=== PATIENT | female | born 1980 | race Caucasian/White ===

== ENCOUNTER 2024-09-19 13:43 | Inpatient (IN) ==
[2024-09-19 16:11] LABS: Hematocrit (blood only) 34.2 % (37.0-47.0); Hemoglobin 11.4 g/dl (12.0-16.0); Mean Corpuscular Hemoglobin 29.5 pg (25.0-34.0); Mean Corpuscular Hgb Conc 33.3 g/dL (32.0-36.0); Mean Corpuscular Volume 88.6 fL (80.0-100.0); Mean Platelet Volume 10.2 fL (9.4-12.4); Platelet Count 251 K/uL (130-400); RDW Coefficient of Variation 13.1 % (11.5-14.5); RDW Standard Deviation 41.8 fL (36.4-46.3); Red Blood Count 3.86 M/uL (4.20-5.40); White Blood Count 17.31 K/ul (4.8-10.8)
--- NOTE | 2024-09-19 16:27 | Electrocardiogram Report ---
Test Reason : Blood Pressure : */* mmHG Vent. Rate : 82 BPM Atrial Rate : 82 BPM P-R Int : 106 ms QRS Dur : 86 ms QT Int : 348 ms P-R-T Axes : 75 75 72 degrees QTcB Int : 406 ms Sinus rhythm with short NE Otherwise normal ECG No previous ECGs available Confirmed by Lukasz Wise ([id number]) on 09/19/2024 4:26:59 PM Referred By: Confirmed By: Lukasz Wise
[2024-09-19 16:29] LABS: Anion Gap 9 (3-11); BUN Creatinine Ratio 15.8 (10-20); Blood Urea Nitrogen 15 mg/dl (6-23); Calcium 9.1 mg/dl (8.6-10.3); Carbon Dioxide 28 mmol/L (21-32); Chloride 89 mmol/L (98-107); Creatinine Clr Calc Pharmacy 62.5 ml/min; Glucose 107 mg/dl (70-99(Fasting)); Potassium 4.4 mmol/L (3.5-5.1); Sodium 126 mmol/L (136-145)
[2024-09-19 16:50] LABS: Basophils # (auto) 0.05 K/uL (0.00-0.20); Basophils % (auto) 0.3 %; Eosinophils # (auto) 0.02 K/uL (0.00-0.50); Eosinophils % (auto) 0.1 %; Immature Granulocytes # (auto) 0.16 K/uL (0.01-0.20); Immature Granulocytes % (auto) 0.9 %; Lymphocytes # (auto) 0.39 K/uL (1.20-3.40); Lymphocytes % (auto) 2.3 %; Monocytes # (auto) 1.03 K/uL (0.11-0.59); Neutrophils # (auto) 15.66 K/uL (1.40-6.50); Neutrophils % (auto) 90.4 %
[2024-09-19 16:58] LABS: Alanine Aminotransferase 14 U/L (7-52); Albumin Globulin Ratio 0.9 (0.9-2); Albumin Level 3.7 gm/dl (3.4-5.0); Alkaline Phosphatase 81 U/L (34-104); Aspartate Aminotransferase 13 U/L (13-39); Bilirubin,Total 0.5 mg/dl (0.2-1.0); Globulin 3.9 gm/dl (2.5-4.0); Lipase < 3 U/L (11-82); Total Protein 7.6 gm/dl (6.0-8.3)
[2024-09-19 17:14] LABS: Appearance Urine Turbid (Clear); Bacteria Urine Automated 4+ (None Seen); Bilirubin Urine Negative (Negative); Blood Urine 2+ (Negative); Color Urine Yellow; Glucose Urine UA Negative (Negative); Ketones Urine Negative (Negative); Leukocyte Esterase Urine 3+ (Negative); Nitrite Urine Negative (Negative); Protein Urine 2+ (Negative); RBC Urine Automated >20 /hpf (0-2); Specific Gravity Urine 1.011 (1.000-1.030); Urobilinogen Urine Negative (Negative); WBC Urine Automated >50 /hpf (0-5); pH Urine 6.5 (4.5-7.5)
[2024-09-19 17:15] LABS: Cast Urine Automated 0-2 /lpf (0-2)
[2024-09-19] MEDS: OPTIRAY 320 100ml IV ONE (17:22)
[2024-09-19] MEDS: SODIUM CHLORIDE 0.9% 1,000 ML IV ONE (17:33)
[2024-09-19] MEDS: cefTRIAXone SODIUM 2,000 MG/50 ML BAG IV STA (17:33)
--- NOTE | 2024-09-19 17:36 | CT Scan Report ---
INDICATION: Abdominal pain. COMPARISON: MRI pelvis 07/20/2024. TECHNIQUE: Axial CT images of the abdomen and pelvis were obtained following IV contrast administration. Coronal and sagittal reformations were reviewed. FINDINGS: Visualized lung bases appear unremarkable. The liver, gallbladder, spleen, pancreas and adrenal glands appear unremarkable. Negative for abdominal aortic aneurysm or dissection. No evidence of bowel obstruction/colitis/appendicitis. No free air. No drainable fluid collection. Heterogeneous inferior aspect of the uterus with nonspecific air along the lower uterine segment. Urinary bladder wall thickening. Moderate left hydronephrosis and left perirenal and periureteral soft tissue stranding. No right hydronephrosis. No acute osseous abnormality evident. IMPRESSION: Findings concerning for endometrial/uterine cancer with mass effect on the left ureter causing moderate left hydronephrosis. Electronically signed by Bonifacio Lawler 09-19-2024 5:35 PM
[2024-09-19] MEDS: ONDANSETRON INJ 2 MG/ML 2 ML VIAL IV STA (18:17)
[2024-09-19] MEDS: HYDROmorphone INJ 0.5 MG/0.5 ML SYR IV PRN ×2 (18:20→22:54)
--- NOTE | 2024-09-19 18:20 | Emergency Department Note ---
Impression & Plan Pyelonephritis, Pelvic mass, Hydronephrosis, Hyponatremia ED Provider Note NAME: JOEY JOHNSON AGE: 44 SEX: F : 1980 ARRIVES VIA: Walk-In INFORMANT: Patient, ED PROVIDER(S): Lukasz Mccarty DO CHIEF COMPLAINT: Abdominal pain HPI: The patient is a 44-year-old female who is recently diagnosed with cervical cancer who presented to the emergency department for an evaluation of abdominal pain. The patient is been complaining of abdominal pain recently. She is also been constipated. She was treated by her outpatient radiation oncologist but because of worsening pain he asked her to come to the emergency department. The radiation oncologist did call me to tell me the patient was coming in and was concerned about the patient given her history. The patient describes left-sided abdominal pain. She states it is worsened with ambulation. She has noticed no hematuria. She denies having any chest pain or difficulty breathing. She has noticed some back pain. Patient denies having any fever. ROS: See above HPI for pertinent positives & negatives. A total of 10 systems reviewed and were otherwise negative. PAST MEDICAL HISTORY: See Below PAST SURGICAL HISTORY: See Below FAMILY HISTORY: See Below SOCIAL HISTORY: See Below HOME MEDICATIONS: See Below ALLERGIES: See Below VITALS: See Below PHYSICAL EXAMINATION: GENERAL: The patient awake and alert. She is very anxious and appears to be uncomfortable. EYES: The conjunctivae are clear. The pupils are round and reactive. EARS, NOSE, MOUTH AND THROAT: The nose is without any evidence of any deformity. NECK: The neck is nontender and supple. RESPIRATORY: Normal respiratory effort is noted there is no evidence of wheezing rhonchi or rales CARDIOVASCULAR: Regular rate and rhythm noted there no murmurs rubs or gallops normal S1 normal S2. GASTROINTESTINAL: The abdomen is distended. There is left-sided tenderness to palpation which is moderate. BACK: Left CVA tenderness was noted to percussion. MUSCULOSKELETAL/EXTREMITIES: There is no evidence of gross deformity full range of motion is noted in the hips and shoulders. SKIN: There is no obvious evidence of any rash. There are no petechiae, pallor or cyanosis noted. NEUROLOGIC: Patient is awake alert and oriented x3 strength is symmetric patellar reflexes are 2+ bilaterally MEDICAL DECISION MAKING: The patient is a 44-year-old female who has a history of cervical cancer who presented to the emergency department for left-sided abdominal pain. The patient was treated with IV fluids and IV pain medication in the emergency department. I discussed the patient's laboratory and radiographic studies with her. She was found to have enlargement of the pelvic mass with resultant hydronephrosis. There is significant stranding about the kidney. There were signs of infection on urinalysis. White blood cell count was elevated. She was treated with IV antibiotics in the emergency department. Given her findings I discussed her condition with the on-call urologist. They do feel the patient might be a candidate for stenting but also might need nephrostomy tube. I discussed her case with the on-call [facility]. They have agreed to evaluate the patient in the emergency department for further management and disposition. Triage Nursing notes reviewed. Prior medical records reviewed Vital Signs: reviewed and remarkable for elevated blood pressure. Differential diagnosis: Etiologies such as appendicitis, diverticulitis, obstruction, inflammatory bowel disease, renal colic, PUD, biliary pathology, pancreatitis, mesenteric ischemia, aortic pathology, infections, genitourinary, UTI, perforated viscus, as well as others were entertained. ER treatment provided: See below Diagnostics interpreted by me: ECG: EKG was obtained in the emergency department. My interpretation is normal sinus rhythm at 82 bpm. There is no ectopy. There is no acute ST segment abnormalities noted. No previous tracing was available. Cardiac Monitoring: An order was placed for continuous cardiac monitoring. The monitor shows a rate of 91 bpm with sinus rhythm. Laboratory studies: As stated above and show below. Imaging studies: See below. Radiographic imaging was reviewed by myself Consultation(s): I discussed this case with Dr. Rendon who is on for urology. I discussed this case with Kera who is on for the [facility] group. 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 Father , 42yo Cerebral aneurysm S/p nephrectomy Brother No problems noted. Brother No problems noted. Sister Twin Pts twin sister Son No problems noted. Daughter No problems noted. 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 How many Children do You have: 2 Other Information That Helps Us Care for You: No Feels Safe at Home: Yes Safety Concerns: Feels Safe At This Time Diet: regular caffeine: No during the past year weight has: decreased > 10 lbs Assistive Devices: None Allergies Allergies Allergy/AdvReac Type Severity Reaction Status Date / Time No Known Allergies Allergy Verified 09/19/24 18:49 Home Meds Home Medications Medication Instructions Recorded Confirmed polyethylene glycol 3350 17 17 g PO DAILY PRN Constipation 08/16/24 09/19/24 gram/dose oral powder (Miralax) ondansetron HCl 8 mg tablet 8 mg PO Q8H PRN Nausea And Vomiting 09/11/24 09/19/24 sennosides 8.6 mg capsule (senna) 8.6 mg PO DAILY 09/11/24 09/19/24 dexamethasone 4 mg tablet 4 mg PO BID 09/19/24 09/19/24 lidocaine-prilocaine 2.5 %-2.5 % 1 applic topical UD Mediport 09/19/24 09/19/24 topical cream morphine 15 mg tablet,extended 15 mg PO BID 09/19/24 09/19/24 release oxycodone 10 mg tablet 10 mg PO Q4H PRN Severe Pain 09/19/24 09/19/24 (Scale Score 7-10) Results & Data (ED) Vital Signs Vital Signs - 24 hr 09/19/24 13:58 09/19/24 18:29 09/19/24 18:31 Temperature 36.5 C Temperature Source Temporal Artery Scan Pulse Rate 93 H 84 Pulse Rate [Apical] 83 Pulse Strength Normal Respiratory Rate 17 18 Respiratory Effort / Characteristics Non-Labored Spontaneous Non-Labored Spontaneous Respiratory Depth Normal Normal Respiratory Pattern Regular Blood Pressure 132/67 Blood Pressure [Left Arm] 139/82 Blood Pressure Mean 88 Blood Pressure Mean [Left Arm] 101 Blood Pressure Position Sitting Pulse Oximetry 90 96 Oxygen Delivery Method Room Air Room Air Sepsis Recent Fever Within 48 Hours No Sepsis New/Unexplained Change in Mental Status No Sepsis Action Taken by Nursing No Action Required Home Medications Current Medication List: was personally reviewed by me Laboratory Data Attestation: I reviewed the patient's lab results. 09/20/24 05:18 09/20/24 05:18 Lab Results 09/19/24 09/19/24 Range/Units 15:56 16:45 WBC 17.31 H (4.8-10.8) K/ul RBC 3.86 L (4.20-5.40) M/uL Hgb 11.4 L (12.0-16.0) g/dl Hct 34.2 L (37.0-47.0) % MCV 88.6 (80.0-100.0) fL MCH 29.5 (25.0-34.0) pg MCHC 33.3 (32.0-36.0) g/dL RDW Std Deviation 41.8 (36.4-46.3) fL RDW Coeff of Fer 13.1 (11.5-14.5) % Plt Count 251 (130-400) K/uL MPV 10.2 (9.4-12.4) fL Immature Gran % (Auto) 0.9 % Neut % (Auto) 90.4 % Lymph % (Auto) 2.3 % Catron % (Auto) 6.0 % Eos % (Auto) 0.1 % Baso % (Auto) 0.3 % Neut # (Auto) 15.66 H (1.40-6.50) K/uL Lymph # (Auto) 0.39 L (1.20-3.40) K/uL Catron # (Auto) 1.03 H (0.11-0.59) K/uL Eos # (Auto) 0.02 (0.00-0.50) K/uL Baso # (Auto) 0.05 (0.00-0.20) K/uL Immature Gran # (Auto) 0.16 (0.01-0.20) K/uL Sodium 126 L (136-145) mmol/L Potassium 4.4 (3.5-5.1) mmol/L Chloride 89 L (98-107) mmol/L Carbon Dioxide 28 (21-32) mmol/L Anion Gap 9 (3-11) BUN 15 (6-23) mg/dl Creatinine 0.95 (0.6-1.2) mg/dl Est Cr Clr Drug Dosing 62.5 ml/min eGFR 75.77 BUN/Creatinine Ratio 15.8 (10-20) Glucose 107 H (70-99(Fasting)) mg/dl Osmolality 269 L (280-300) mOsm/kg Calcium 9.1 (8.6-10.3) mg/dl Total Bilirubin 0.5 (0.2-1.0) mg/dl AST 13 (13-39) U/L ALT 14 (7-52) U/L Alkaline Phosphatase 81 (34-104) U/L Total Protein 7.6 (6.0-8.3) gm/dl Albumin 3.7 (3.4-5.0) gm/dl Globulin 3.9 (2.5-4.0) gm/dl Albumin/Globulin Ratio 0.9 (0.9-2) Lipase < 3 L (11-82) U/L Urine Color Yellow Urine Appearance Turbid A (Clear) Urine pH 6.5 (4.5-7.5) Ur Specific [place] 1.011 (1.000-1.030) Urine Protein 2+ H (Negative) Urine Glucose (UA) Negative (Negative) Urine Ketones Negative (Negative) Urine Blood 2+ H (Negative) Urine Nitrite Negative (Negative) Urine Bilirubin Negative (Negative) Urine Urobilinogen Negative (Negative) Ur Leukocyte Esterase 3+ H (Negative) Urine WBC (Auto) >50 H (0-5) /hpf Urine RBC (Auto) >20 H (0-2) /hpf U Hyaline Cast (Auto) 0-2 (0-2) /lpf U Epithel Cells (Auto) 3-5 H (0-2) /hpf Urine Bacteria (Auto) 4+ H (None Seen) Urine Osmolality 333 L (500-800) mOsm/kg Ur Random Sodium 48 mmol/L Administered Medications Dexamethasone (Dexamethasone 4 Mg Tab) 4 mg PO BID KENDRA Stop: 10/19/24 20:59 Last Admin: 09/19/24 22:51 Dose: 4 mg Documented By: GHULAM Hydromorphone HCl (Hydromorphone Inj 0.5 Mg/0.5 Ml Syr) 0.5 mg IV Q3H PRN PRN Reason: Pain Stop: 10/03/24 19:16 Last Admin: 09/20/24 04:03 Dose: 0.5 mg Documented By: Admin: 09/19/24 22:54 Dose: 0.5 mg Documented By: GHULAM Oxycodone HCl (Oxycodone Hcl Ir 5 Mg Tab (Immediate Release)) 10 mg PO Q4H PRN PRN Reason: Severe Pain (Scale Score 7-10) Stop: 10/03/24 20:17 Last Admin: 09/20/24 00:51 Dose: 10 mg Documented By: Admin: 09/19/24 20:40 Dose: 10 mg Documented By: GHULAM Discontinued Medications Heparin Sodium (Porcine) (Heparin Sod 5,000 Unit/0.5 Ml Vial) 5,000 units SQ Q8 KENDRA Stop: 10/19/24 21:59 Last Admin: 09/19/24 22:51 Dose: 5,000 units Documented By: GHULAM Hydromorphone HCl (Hydromorphone Inj 0.5 Mg/0.5 Ml Syr) 0.5 mg IV Q15M PRN PRN Reason: Pain Stop: 10/03/24 18:10 Last Admin: 09/19/24 19:03 Dose: 0.5 mg Documented By: Admin: 09/19/24 18:20 Dose: 0.5 mg Documented By: LISANDRA Sodium Chloride (Nss) 1,000 mls @ 999 mls/hr IV .Q1H1M ONE Stop: 09/19/24 18:16 Last Infusion: 09/19/24 18:46 Dose: Infused Documented By: Admin: 09/19/24 17:33 Dose: 999 mls/hr Documented By: KEKE Ceftriaxone Sodium (Rocephin) 2,000 mg in 50 mls @ 100 mls/hr IV NOW STA Stop: 09/19/24 17:45 Last Infusion: 09/19/24 18:46 Dose: Infused Documented By: Admin: 09/19/24 17:33 Dose: 100 mls/hr Documented By: KEKE Sodium Chloride (Nss) 500 mls @ 60 mls/hr IV .Q8H20M KENDRA Stop: 09/20/24 04:04 Last Infusion: 09/20/24 05:16 Dose: Infused Documented By: Admin: 09/19/24 20:40 Dose: 60 mls/hr Documented By: GHULAM Ioversol (Optiray 320 100ml) 93 ml IV ONCE ONE Stop: 09/19/24 17:23 Last Admin: 09/19/24 17:22 Dose: 93 ml Documented By: MONCHO Ondansetron HCl (Ondansetron Inj 2 Mg/Ml 2 Ml Vial) 4 mg IV NOW STA Stop: 09/19/24 18:12 Last Admin: 09/19/24 18:17 Dose: 4 mg Documented By: LISANDRA Imaging Data Attestation: I personally reviewed and interpreted this imaging study as follows: My Impression: CT of the abdomen and pelvis was obtained in the emergency department. My interpretation is hydronephrosis with stranding about the left kidney, final report below. Radiologist's Impression: Abdomen/Pelvis CT 09/19/24 17:04 INDICATION: Abdominal pain. COMPARISON: MRI pelvis 07/20/2024. TECHNIQUE: Axial CT images of the abdomen and pelvis were obtained following IV contrast administration. Coronal and sagittal reformations were reviewed. FINDINGS: Visualized lung bases appear unremarkable. The liver, gallbladder, spleen, pancreas and adrenal glands appear unremarkable. Negative for abdominal aortic aneurysm or dissection. No evidence of bowel obstruction/colitis/appendicitis. No free air. No drainable fluid collection. Heterogeneous inferior aspect of the uterus with nonspecific air along the lower uterine segment. Urinary bladder wall thickening. Moderate left hydronephrosis and left perirenal and periureteral soft tissue stranding. No right hydronephrosis. No acute osseous abnormality evident. IMPRESSION: Findings concerning for endometrial/uterine cancer with mass effect on the left ureter causing moderate left hydronephrosis. Electronically signed by Bonifacio Lawler 09-19-2024 5:35 PM Discharge Plan Visit Data Chief Complaint: Abdominal Pain Stated Complaint: ABD PAIN, CANCER PATIENT ED Provider: Lukasz Mccarty Discharge Problem: Pyelonephritis, Pelvic mass, Hydronephrosis, Hyponatremia Patient Disposition: Admitted As Inpatient Discharge Instructions Interventions: ED Discharge Assessment Last Done: 09/19/24 20:14
[2024-09-19] MEDS ORDERED: ACETAMINOPHEN 325 MG TAB PO PRN (18:58)
--- NOTE | 2024-09-19 19:16 | History & Physical Report ---
<Statement entered by Dean Russo DO - 09/19/24 19:55> I have seen and examined the patient and have discussed the case with the advance practice provider. I have reviewed the advanced practitioner's documentation, and I agree with, and take responsibility for that plan of care. Patient evaluated while still in the ED. Appears uncomfortable, but declining any additional pain medicine at this time. Reviewed patient's renal function, within normal range, will add Toradol for some pain control as needed, often effective and pyelonephritis. Continue antibiotics Agree with urology evaluation Further plan of care as outlined below I spent a total of 16 minutes coordinating, documenting, and providing care for this patient excluding time spent by another provider/QHP. Date of Service September 19, 2024 Assessment & Plan (1) Hydronephrosis: (2) Pyelonephritis: (3) Squamous cell carcinoma of cervix: (4) Hyponatremia: Plan Assessment and plan: Squamous cell carcinoma of the cervix Mass effect on left ureter Left hydronephrosis Follows with Dr. Keith and currently undergoing radiation/chemotherapy Pain usually managed at home with oral morphine and Oxy Urology consulted, consider cystoscopy with stent versus nephrostomy tube N.p.o. after midnight, light hydration overnight. Hyponatremia: NA 126, likely secondary to poor oral intake. IV hydration overnight, BMP in a.m., urine Osmo and serum Osmo pending A total of 60 minutes is spent on chart review/facilitating plan of care/discussion with consultants/Reviewing diagnostic data Full code DVT prophylaxis: Heparin subcu History of Present Illness Chief Complaint: Abdominal pain Primary Care Provider: NO PCP The patient is a 44-year-old female with a past medical history of cervical CAcurrently undergoing radiation who presents to the ED on 09/19/2024 with complaints of worsening abdominal pain. Patient chronically takes morphine and Oxy for pain control. Reported to her oncologist that her pain has been worsening. She was directed to come to the ER if it did not improve. Patient reports left-sided pain that radiates around her back. She denies any nausea/vomiting/diarrhea. She denies any chest pain/shortness of breath. Does endorse some constipation but reports she had a bowel movement yesterday. Denies any hematuria. Denies any burning with urination. On arrival to the ED, labs remarkable for WBC 17.3, neutrophils 15.6, NA 126, glucose 107 UA appears positive. The patient was given IV ceftriaxone/IV fluids/Zofran in the ED Abdomen/pelvis CT shows findings concerning for endometrial/uterine cancer with mass effect on the left ureter causing moderate left hydronephrosis After discussion with urology, it was determined to admit the patient for pain control and patient may require a stent versus nephrostomy tube. She will be admitted for further management Kidney function is within normal limits Allergies Allergy/AdvReac Type Severity Reaction Status Date / Time No Known Allergies Allergy Verified 09/19/24 18:49 Home Medications Medication Instructions Recorded Confirmed Type polyethylene glycol 3350 17 17 g PO DAILY PRN Constipation 08/16/24 09/19/24 History gram/dose oral powder (Miralax) ondansetron HCl 8 mg tablet 8 mg PO Q8H PRN Nausea And Vomiting 09/11/2409/19 History sennosides 8.6 mg capsule (senna) 8.6 mg PO DAILY 09/11/24 09/19/24 History dexamethasone 4 mg tablet 4 mg PO BID 09/19/24 09/19/24 History lidocaine-prilocaine 2.5 %-2.5 % 1 applic topical UD Mediport 09/19/24 09/19/24 History topical cream morphine 15 mg tablet,extended 15 mg PO BID 09/19/24 09/19/24 History release oxycodone 10 mg tablet 10 mg PO Q4H PRN Severe Pain 09/19/24 09/19/24 History (Scale Score 7-10) Past Med/Surg History Problem List (Updated 09/19/24 @ 19:14 by VIVEK Carmona) Hyponatremia Hydronephrosis (Acute) Pelvic mass (Acute) Pyelonephritis (Acute) Squamous cell carcinoma of cervix (Chronic 07/25/24) Surgical History Status post colposcopy History of knee surgery Removal of Spaulding's cyst - right Family History Mother No problems noted. Father , 42yo Cerebral aneurysm S/p nephrectomy Brother No problems noted. Brother No problems noted. Sister Twin Pts twin sister Son No problems noted. Daughter No problems noted. 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 How many Children do You have: 2 Feels Safe at Home: Yes Diet: regular caffeine: No during the past year weight has: decreased > 10 lbs Review of Systems Review of Systems: All systems reviewed & are unremarkable except as noted in HPI & below Physical Exam Constitutional: WD/WN, vitals as above + ill appearing; no acute distress Eyes: PERRL, conjunctivae normal, anicteric sclerae ENMT: external ear and nose normal, oropharynx normal Neck: trachea midline, no thyromegaly Respiratory: normal respiratory effort, lungs clear to auscultation Cardiovascular: RRR, no murmur, no edema Gastrointestinal (Abdomen): normal bowel sounds, soft, nontender, no hepatosplenomegaly (Left-sided abdominal tenderness. No guarding) Musculoskeletal: no cyanosis or clubbing, extremities motor strength 5/5 Skin: no rashes, warm and dry Neurologic: PERRL, EOMI, accommodation nl, no face palsy, no dysarthria Lymphatic: no cervical or axillary lymphadenopathy Results & Data Results & Data Vital Signs (Past 12 Hours) Vital Signs Temp Pulse Pulse Resp BP BP Pulse Ox 09/19/24 18:31 83 18 139/82 96 09/19/24 18:29 84 09/19/24 13:58 36.5 C 93 H 17 132/67 90 O2 Del Method 09/19/24 18:31 Room Air 09/19/24 18:29 09/19/24 13:58 Room Air Diagnostic Findings Laboratory Results WBC 17.31 K/ul (4.8-10.8) H 09/19/24 15:56 RBC 3.86 M/uL (4.20-5.40) L 09/19/24 15:56 Hgb 11.4 g/dl (12.0-16.0) L 09/19/24 15:56 Hct 34.2 % (37.0-47.0) L 09/19/24 15:56 MCV 88.6 fL (80.0-100.0) 09/19/24 15:56 MCH 29.5 pg (25.0-34.0) 09/19/24 15: MCHC 33.3 g/dL (32.0-36.0) 09/19/24 15:56 RDW Std Deviation 41.8 fL (36.4-46.3) 09/19/24 15:56 RDW Coeff of Fer 13.1 % (11.5-14.5) 09/19/24 15:56 Plt Count 251 K/uL (130-400) 09/19/24 15: MPV 10.2 fL (9.4-12.4) 09/19/24 15:56 Immature Gran % (Auto) 0.9 % 09/19/24 15:56 Neut % (Auto) 90.4 % 09/19/24 15:56 Lymph % (Auto) 2.3 % 09/19/24 15:56 Centre % (Auto) 6.0 % 09/19/24 15:56 Eos % (Auto) 0.1 % 09/19/24 15:56 Baso % (Auto) 0.3 % 09/19/24 15:56 Neut # (Auto) 15.66 K/uL (1.40-6.50) H 09/19/24 15:56 Lymph # (Auto) 0.39 K/uL (1.20-3.40) L 09/19/24 15:56 Centre # (Auto) 1.03 K/uL (0.11-0.59) H 09/19/24 15:56 Eos # (Auto) 0.02 K/uL (0.00-0.50) 09/19/24 15:56 Baso # (Auto) 0.05 K/uL (0.00-0.20) 09/19/24 15:56 Immature Gran # (Auto) 0.16 K/uL (0.01-0.20) 09/19/24 15:56 Sodium 126 mmol/L (136-145) L 09/19/24 15:56 Potassium 4.4 mmol/L (3.5-5.1) 09/19/24 15:56 Chloride 89 mmol/L (98-107) L 09/19/24 15:56 Carbon Dioxide 28 mmol/L (21-32) 09/19/24 15:56 Anion Gap 9 (3-11) 09/19/24 15:56 BUN 15 mg/dl (6-23) 09/19/24 15:56 Creatinine 0.95 mg/dl (0.6-1.2) 09/19/24 15:56 Est Cr Clr Drug Dosing 62.5 ml/min 09/19/24 15:56 eGFR 75.77 09/19/24 15:56 BUN/Creatinine Ratio 15.8 (10-20) 09/19/24 15:56 Glucose 107 mg/dl (70-99(Fasting)) H 09/19/24 15:56 Calcium 9.1 mg/dl (8.6-10.3) 09/19/24 15:56 Total Bilirubin 0.5 mg/dl (0.2-1.0) 09/19/24 15:56 AST 13 U/L (13-39) 09/19/24 15:56 ALT 14 U/L (7-52) 09/19/24 15:56 Alkaline Phosphatase 81 U/L (34-104) 09/19/24 15:56 Total Protein 7.6 gm/dl (6.0-8.3) 09/19/24 15:56 Albumin 3.7 gm/dl (3.4-5.0) 09/19/24 15:56 Globulin 3.9 gm/dl (2.5-4.0) 09/19/24 15:56 Albumin/Globulin Ratio 0.9 (0.9-2) 09/19/24 15:56 Lipase < 3 U/L (11-82) L 09/19/24 15:56 Urine Color Yellow 09/19/24 16:45 Urine Appearance Turbid (Clear) A 09/19/24 16:45 Urine pH 6.5 (4.5-7.5) 09/19/24 16:45 Ur Specific Carroll 1.011 (1.000-1.030) 09/19/24 16:45 Urine Protein 2+ (Negative) H 09/19/24 16:45 Urine Glucose (UA) Negative (Negative) 09/19/24 16:45 Urine Ketones Negative (Negative) 09/19/24 16:45 Urine Blood 2+ (Negative) H 09/19/24 16:45 Urine Nitrite Negative (Negative) 09/19/24 16:45 Urine Bilirubin Negative (Negative) 09/19/24 16:45 Urine Urobilinogen Negative (Negative) 09/19/24 16:45 Ur Leukocyte Esterase 3+ (Negative) H 09/19/24 16:45 Urine WBC (Auto) >50 /hpf (0-5) H 09/19/24 16:45 Urine RBC (Auto) >20 /hpf (0-2) H 09/19/24 16:45 U Hyaline Cast (Auto) 0-2 /lpf (0-2) 09/19/24 16:45 U Epithel Cells (Auto) 3-5 /hpf (0-2) H 09/19/24 16:45 Urine Bacteria (Auto) 4+ (None Seen) H 09/19/24 16:45 Impressions Abdomen/Pelvis CT 09/19/24 17:04 INDICATION: Abdominal pain. COMPARISON: MRI pelvis 07/20/2024. TECHNIQUE: Axial CT images of the abdomen and pelvis were obtained following IV contrast administration. Coronal and sagittal reformations were reviewed. FINDINGS: Visualized lung bases appear unremarkable. The liver, gallbladder, spleen, pancreas and adrenal glands appear unremarkable. Negative for abdominal aortic aneurysm or dissection. No evidence of bowel obstruction/colitis/appendicitis. No free air. No drainable fluid collection. Heterogeneous inferior aspect of the uterus with nonspecific air along the lower uterine segment. Urinary bladder wall thickening. Moderate left hydronephrosis and left perirenal and periureteral soft tissue stranding. No right hydronephrosis. No acute osseous abnormality evident. IMPRESSION: Findings concerning for endometrial/uterine cancer with mass effect on the left ureter causing moderate left hydronephrosis. Electronically signed by Bonifacio Lawler 09-19-2024 5:35 PM Code Status & VTE Plan VTE Prophylaxis Plan VTE Prophylaxis will be ordered: Yes
[2024-09-19] MEDS ORDERED: POLYETHYLENE (MIRALAX) 17 GM PACK PO PRN (20:18)
[2024-09-19] MEDS ORDERED: KETOROLAC TROMETHAMINE 15 MG/ML VIAL IV PRN (20:18)
[2024-09-19] MEDS: oxyCODONE HCL IR 5 MG TAB (IMMEDIATE RELEASE) PO PRN (20:40)
[2024-09-19] MEDS: SODIUM CHLORIDE 0.9% 500 ML IV SCH (20:40)
[2024-09-19] MEDS ORDERED: MoRPHine SULFATE CR 15 MG TABCR PO SCH (21:00)
[2024-09-19] MEDS: HEPARIN SOD 5,000 UNIT/0.5 ML VIAL SQ SCH (22:51)
[2024-09-19] MEDS: dexAMETHasone 4 MG TAB PO SCH (22:51)
--- OUTSIDE RECORDS SUMMARY | 2024-09-19 23:22 | External Medical Summary | Summary of Care ---
Author Name Unknown Organization [facility] Address [address] [place] [address] Phone [phone] Care Team Providers Care Pst Manager Name Role Phone Unavailable Primary Care Provider Unavailabl e Reason for Visit * Reason Comments Outpatient Testing Encounter Details Date Type Department Care Team (Late st Contact Info) Description 09/19/2024 9:30 AM EST Laboratory Laboratory [address] [place] [phone] [place] [id number] Squamous cell carcinoma of cervix (HCC) Allergies No known active allergiesdocumented as of this encounter (statuses as of 09/19/2024) Medications Polyethylene Glycol 3350 17 GM/SCOOP Oral Powder (MiraLax) Take 17 g by mouth daily as needed for Constipation. One heaping tablespoon in 8 ounces of water or juice; for severe constipation. 510 g 3 5 Active Prochlorperazine Maleate 10 MG Oral Tablet (Compazine)Indica tions:Squamous cell carcinoma of cervix (HCC) Take 1 Tablet by mouth every 6 hours as needed for Nausea. 30 Tablet 5 Active Ondansetron HCl 8 MG Oral Tablet (Zofran)Indicatio ns:Squamous cell carcinoma of cervix (HCC) Take 1 Tablet by mouth every 8 hours as needed for Nausea. 39 Tablet 5 Active Lidocaine-Priloca ine 2.5-2.5 % External Cream (Emla)Indications :Squamous cell carcinoma of cervix (HCC) APPLY TO SKIN OVER MEDIPORT & COVER 1HR PRIOR TO ACCESSING. 30 g 5 Active Senna 8.6 MG Oral TabletIndications :Therapeutic opioid induced constipation Take 1 Tablet by mouth at bedtime. 30 Tablet 5 Active Morphine Sulfate ER 15 MG Oral Tablet Extended Release (Ms Contin)Indication s:Cancer related pain Take 1 Tablet by mouth in the morning and 1 Tablet before bedtime. 28 Tablet 5 Active oxyCODONE HCl 10 MG Oral Tablet (Roxicodone)Indic ations:Cancer related pain Take 1 Tablet by mouth every 4 hours as needed for Pain, Severe. 40 Tablet 5 Active Cranberry-Vitamin C 250-60 MG Oral Capsule (AZO Cranberry Urinary Tract) Take 2 Capsules by mouth 2 times a day as needed (urinary pain). 30 Capsule 5 Active dexAMETHasone 4 MG Oral Tablet (Decadron)Indicat ions:Cancer related pain Take 1 Tablet by mouth 2 times a day with morning and evening meals. 20 Tablet 5 Active documented as of this encounter (statuses as of 09/19/2024) Active Problems Problem Noted Date Diagnosed Date Dehydration 09/13/2024 Encounter for antineoplastic chemotherapy 2024 Squamous cell carcinoma of cervix 07/31/2024 Tobacco use documented as of this encounter (statuses as of 09/19/2024) Resolved Problems Problem Noted Date Diagnosed Date Resolved Date Encounter for supervision of other normal 01/31/2002 04/26/2002 Overview (11/26/2015): ICD-10 update of inactive term documented as of this encounter (statuses as of 09/19/2024) Social History Tobacco Use Types Packs/Day Years Used Date Smoking Tobacco: Every Day Cigarettes 0.5 7 Smokeless Tobacco: Never Comments:Reporting 10 daily Alcohol Use Standard Drinks/Week Comments Yes 0 (1 standard drink = 0.6 oz pur e alcohol) social PHQ-2 Answer Date Recorded PHQ-2 Score 0 04/30/2020 Hunger Vital Sign Answer Date Recorded Within the past 12 months, y ou worried that your food would run out before you got the money to buy more. Never true 06/07/20 24 Within the past 12 months, t he food you bought just didn't last and you didn't have money to get more. Never true 06/07/2024 Childcare Answer Date Recorded Do you feel overwhelmed with taking care of a child, family member or friend? No 06/07/2024 Does your family need help f inding childcare? (Household - for ages 0-17 years) Not on file 06/07/2024 Clothing Answer Date Recorded Have you been unable to get clothing when it was really needed? No 06/07/2024 Is your family able to get c lothes or diapers when needed? (Household - for ages 0-17 years) Not on file 06/07/2024 Personal Safety Answer Date Recorded Do you feel unsafe or have concerns for your saf ety? No 06/07/2024 Do you have concerns for you r family's safety? (Household - for ages 0-17 years) Not on file 06/07/2024 Utilities Answer Date Recorded Do you have trouble paying y our heating, water, or electric bill? No 06/07/2024 Is your family able to pay t he heat, water, or electric bill? (Household - for ages 0-17 years) Not on file 06/07/2024 Does your family have access to good internet? (Household - for ages 0-17 years) Not on file 06/07/2024 Employment Status Answer Date Recorded Are you unemployed or without regular income? No 06/07/2024 Does the household have a rustlar source of income? (Household - for ages 0-17 years) Not on file 06/07/2024 Social Connections Answer Date Recorded How often do you feel lonely or isolated from th ose around you? Rarely 06/07/2024 Financial Resource Strain Answer Date R ecorded Do you have any trouble payi ng for your medications, or do you think you might in the future? No 06/07/2024 Does your family have troubl e paying for medicine? (Household - for ages 0-17 years) Not on file 06/07/2024 Transportation Needs Answer Date Record ed Do you have trouble getting a ride to medical visits or work? (Adult - for ages 18 years and over) Not on file 06/07/2024 Does your family have a hard time getting a ride to doctors visits? (Household - for ages 0-17 years) Not on file 06/07/2024 Has lack of transportation k ept you from medical appointments, meetings, work, or from getting things needed for daily living? Check all that apply. No 06/07/2024 Do you (or your family) have trouble finding or paying for a ride (transportation)? (Household - for ages 0-17 years) Not on file 06/07/2024 Housing Stability Answer Date Recorded Do you currently live in a s helter or have no steady place to sleep at night? No 06/07/2024 Do you think you are at risk of becoming homeless? (Adult - for ages 18 years and over) Not on file 06/07/2024 Does your family worry about paying for your home or becoming homeless? (Household - for ages 0-17 years) Not on file 1 08/07/2023 Are you homeless or worried that you might be in the future? No 06/07/2024 Are you (or your family) yamilka eless or worried that you might be in the future? (Household - for ages 0-17 years) Not on file Food Insecurity Answer Date Recorded Do you need food for this week? No 06/07/2024 Are you able to get enough f ood for your family? (Household - for ages 0-17 years) Not on file 06/07/2024 Does your family need food t his week? (Household - for ages 0-17 years) Not on file 06/07/2024 Do you always have enough fo od for your family? (Household - for ages 0-17 years) Not on file 06/07/2024 Food Insecurity Answer Date Recorded Within the past 12 months, y ou worried that your food would run out before you got the money to buy more. Never true 06/07/20 24 Within the past 12 months, t he food you bought just didn't last and you didn't have money to get more. Never true 06/07/2024 Do you need food for this week? No 06/07/2024 Comments No Sex and Gender Information Value Date Recorded Sex Assigned at Female 06/07/2024 10:45 AM EST Legal Sex Female 5:28 AM EST Gender Identity Female 06/07/2024 10:45 AM EST Sexual Orientation Straight 06/07/2024 10 :45 AM EST documented as of this encounter Plan of Treatment Upcoming Encounters Date Type Department Care Team (Late st Contact Info) Description 09/20/2024 9:00 AM EST Office Visit Hematology/Oncology [facility] [address] [facility] [place] [phone] Angela Carranza CRNP [address] [place], [place] [phone] 09/20/2024 9:30 AM EST Hem/Onc Treatment [address] [phone] Nori, Chair 2 Hem Onc [address] [place] [phone] 09/20/2024 9:30 AM EST Office Visit Palliative Medicine [facility] [address] [phone] Kaye Augustine MD [address] [facility] [place] [address] 09/26/2024 9:30 AM EST Laboratory Laboratory [address] [place] [phone] [address] [place] [address] 09/27/2024 9:30 AM EST Office Visit Hematology/Oncology [facility] [address] [place] [phone] Chitra Bass MD [address] [facility] [place] [phone] 09/27/2024 10:00 AM EST Hem/Onc Treatment Hematology/Oncology Treatment, [place] [address] [place] [phone] 10/03/2024 9:30 AM EDT Laboratory Laboratory [address] [place] [phone] [place], [address] [place] [address] 10/04/2024 9:30 AM EDT Hem/Onc Treatment Hematology/Oncology Treatment, [address], [place] [phone] Pending Results Name Type Priority Associated Diagnoses Date /Time CBC WITH WBC DIFFERENTIAL Lab STAT Squamous cell carcinoma of cervix (HCC) 09/19/2024 9:44 AM EST COMPREHENSIVE METABOLIC PANEL Lab STAT Squamous cell carcinoma of cervix (HCC) 09/19/2024 9:44 AM EST MAGNESIUM Lab STAT Squamous cell carcinoma of cervix (HCC) 09/19/2024 9:44 AM EST CBC Lab STAT Squamous cell carcinoma of cervix (HCC) 09/19/2024 9:44 AM EST DIFFERENTIAL, AUTOMATED Lab STAT Squamous cell carcinoma of cervix (HCC) 09/19/2024 9:44 AM EST Health Maintenance Due Date Last Done Comments Lipid Panel 1980 Hepatitis C Screening 1998 DTap/Tdap Vaccines (1 - Tdap) 1999 Hepatitis B Vaccine (1 of 3 - 19+ 3-dose series) 1999 Pneumococcal Vaccine: Pediatrics (0 to 5 Years) and At-Risk Patients (6 to 18 Years and 19+ Years) (1 of 2 - PCV) 1999 Depression Screening 04/30/2021 04/30/2020 COVID-19 Vaccine (1 - 2023-2 5 season) 2024 Influenza Vaccine (FLU shot) (#1) 2024 Mammogram 06/23/2025 06/23/2024 Cervical Cancer Screening Discontinued HPV/Co-Test Discontinued 06/08/2024 Pap Smear Discontinued 06/08/2024, 10/11/2001 HPV (Gardasil) Vaccine Aged Out No lo nger eligible based on patient's age to complete this topic MENINGOCOCCAL (MENACTRA/MENVEO) Aged Out No longer eligible based on patient's age to complete this topic Meningitis B Vaccine (Bexsero/Trumemba) Aged Out No longer eligible based on patient's age to complete this topic documented as of this encounter Medical Devices Implanted Type Area Tumblers Supervisor Device Identifier Shelf Expiration Date Model / Serial / Lot Power Port 8fr Sngl Lumen Plas - [id number] Implanted:Qty : 1 on 09/08/2024 by Armond Drew MD at OR [facility] Right: Chest CR BARD : PERIPHERAL VASCULAR [id number] 10/23/2025 [id number] / / [id number] documented as of this encounter Visit Diagnoses Diagnosis Squamous cell carcinoma of cervix (HCC) Malignant neoplasm of cervix uteri, unspecified site documented in this encounter
--- OUTSIDE RECORDS SUMMARY | 2024-09-19 23:22 | External Medical Summary | Summary of Care ---
Author Name Unknown Organization [facility] Address [address] [place] [address] Phone [phone] Care Team Providers Care Technology Advisor Name Role Phone Unavailable Primary Care Provider Unavailabl e Reason for Visit * Reason Comments IV Therapy Hydration Encounter Details Date Type Department Care Team (Latest Contact Info) Description 09/18/2024 3:00 PM EST Hem/Onc Treatment Hematology/Oncolog y Treatment, [place] [address] [place] [address] Nori, Chair 5 Hem Onc Scene [address] [place] [address] Encounter for antineoplastic chemotherapy*; Squamous cell carcinoma of cervix (HCC); Dehydration Allergies No known active allergiesdocumented as of [...] No 06/07/2024 Does the household have a re gular source of income? (Household - for ages [...] AM EST documented as of this encounter Last Filed Vital Signs Vital Sign Reading Time Taken Comments Blood Pressure 145/83 09/18/2024 3:14 PM EST Pulse - - Temperature 36.9 C (98.4 F) 09/18/2024 3:14 PM ES T Respiratory Rate 18 09/18/2024 3:14 PM EST Oxygen Saturation 93% 09/18/2024 3:14 PM EST Inhaled Oxygen Concentration - - Weight - - Height - - Body Mass Index - - documented in this encounter Nursing Notes * Christiana Lee RN - 09/18/2024 4:53 PM EST Hydration complete. Patient tolerated well. No complaints. Port needle flushed with 10 ml NSS, blood return noted, and port locked with additional 10 ml NSS. Burnett needle removed, intact, gauze dressing applied. Goals: Patient will remain free from injury. Possible barriers to meeting goals: ambulating with IV pole Stability of the patient: Moderately stable - low risk of patient condition declining or worsening Summary regarding today's goals: Met: Patient remained free from harm/injury during treatment. Patient left facility in stable condition. * Genesis Gauthier RN - 09/18/2024 3:34 PM EST Chair 12 Patient here for hydration. Port accessed with brisk blood return. Patient instructed on use of heat in chair. Patient shown how to operate the heat function of the chair and to alert nursing staff if the chair feels too warm. Patient instructed on the risk of potential peterson while using the heat function. Safety and Risk for Injury Patient will remain free from injury. Ensure appropriate safety devices are available. Provide and maintain safe environment. documented in this encounter Plan of Treatment Upcoming Encounters Date Type Department Care Team (Late st Contact Info) Description 09/19/2024 9:30 AM EST Laboratory Laboratory [address] [place] [phone] [place] [address] 09/20/2024 9:00 AM EST Office Visit Hematology/Oncology [facility] [address] [place] [phone] Angela Carranza CRNP [address] [place] [address] 09/20/2024 9:30 AM EST Hem/Onc Treatment Hematology/Oncology Treatment[address], [place] [phone] Nori, Chair 2 Hem Onc [address] [place] [address] 09/20/2024 9:30 AM EST Office Visit Palliative Medicine [facility] [address], [place] [phone] Kaye Augustine MD [address] [place], [place] [phone] 09/26/2024 9:30 AM EST Laboratory Laboratory [address] [place] [phone] [place] [address] 09/27/2024 9:30 AM EST Office Visit Hematology/Oncology [facility] [place] [address] [facility] [place] [phone] Chitra Bass MD [address] [place] [address] 09/27/2024 10:00 AM EST Hem/Onc Treatment Hematology/Oncology Treatment, [place] [address] [facility] [place] [address] 10/03/2024 9:30 AM EDT Laboratory Laboratory [address] [place] [phone] [place] [address] 10/04/2024 9:30 AM EDT Hem/Onc Treatment Hematology/Oncology Treatment, [address], [place] [phone] Health Maintenance Due Date Last Done Comments [...] this encounter Medical Devices Implanted Type Area Imaging Assistant Device Identifier Shelf Expiration Date Model / Serial / Lot Power Port 8fr Sngl Lumen Plas - [id number] Implanted:Qty : 1 on 09/08/2024 by Armond Drew MD at OR [facility] Right: Chest CR BARD : PERIPHERAL VASCULAR [id number] 10/23/2025 [id number] / / [id number] documented as of this encounter Visit Diagnoses Diagnosis Encounter for antineoplastic chemotherapy- Primary Squamous cell carcinoma of cervix (HCC) Malignant neoplasm of cervix uteri, unspecified site Dehydration documented in this encounter Administered Medications Inactive Administered Medications - up to 3 most recent administrations Medication Order MAR Action Action Date Dose Rate Site NSS infusion FOR HYDRATION Intravenous, at 500 mL/hr Administer over 2 Hours, ONCE, 1 dose, On Wed09/18/24 at 1630Indications:Squamous cell carcinoma of cervix (HCC),Dehydration Start Infusion 09/18/2024 3:22 PM EST 1,000 mL 500 mL/hr sodium chloride 0.9 % flush central line 10 mL 10 mL, IV Push, PRN Other, IV Flush, Starting on Wed09/18/24 at 1521, Until Wed09/18/24 at 2055, For 24 hours, Do not flush if lock, PICC, or central line not in place; IV infusing or unable to flush.Indications:Squamou s cell carcinoma of cervix (HCC),Dehydration Given 09/18/2024 4:47 PM EST 20 mL documented in this encounter
--- OUTSIDE RECORDS SUMMARY | 2024-09-19 23:22 | External Medical Summary | Summary of Care ---
Author Name Unknown Organization [facility] Address [address] [place] [address] Phone [phone] Care Team Providers Care Associate Professor Of Geology Name Role Phone Unavailable Primary Care Provider Unavailabl e Reason for Visit * Reason Onset Date Comments Order Request 09/15/2024 Encounter Details Date Type Department Care Team (Late st Contact Info) Description 09/15/2024 Telephone Hematology/Oncology Treatment, [place] [address] [place] [address] Chitra Bass MD [address] [place] [address] Order Request Allergies No known active allergiesdocumented as of this encounter (statuses as of 09/15/2024) Medications Polyethylene Glycol 3350 17 GM/SCOOP Oral [...] as of this encounter (statuses as of 09/15/2024) Active Problems Problem Noted Date Diagnosed Date Dehydration 09/13/2024 Encounter for antineoplastic chemotherapy 2024 Squamous cell carcinoma of cervix 07/31/2024 Tobacco use documented as of this encounter (statuses as of 09/15/2024) Resolved Problems Problem Noted Date Diagnosed Date Resolved Date Encounter for supervision of other normal 01/31/2002 04/26/2002 Overview (11/26/2015): ICD-10 update of inactive term documented as of this encounter (statuses as of 09/15/2024) Social History Tobacco Use Types Packs/Day Years [...] No 06/07/2024 Does the household have a [facility] source of income? (Household - for ages [...] AM EST documented as of this encounter Miscellaneous Notes * Telephone Encounter - Malorie Owen RN - 09/15/2024 8:57 AM EST Order received, beacon plan entered and routed for signature. * Telephone Encounter - Malorie Owen RN - 09/15/2024 8:10 AM EST Yvonne Miller LPN P [facility] Hem/Onc Nurse Pool/Class Hi, Patient is scheduled to on Monday 09/18 for Hydration. The plan needs days. Thanks There is no order in place for hydration 09/18. Angela: please place order for hydration 09/18- only order placed was for the hydration patient received this week. Thanks! documented in this encounter Plan of Treatment Upcoming Encounters Date Type Department Care Team (Late st Contact Info) Description 09/18/2024 3:00 PM EST Hem/Onc Treatment Hematology[address] [phone] Nori, Chair 5 Hem Onc [address] [address] 09/19/2024 9:30 AM EST Laboratory Laboratory [address] [place] [phone] [address] [place] [address] 09/20/2024 9:00 AM EST Office Visit Hematology/Oncology [facility] 200 [facility] [place], [place] [phone] Angela Carranaz CRNP [address] [place], [place] [phone] 09/20/2024 9:30 AM EST Hem/Onc Treatment Hematology/Oncology Treatment, [address], [place] [phone] Nori, Chair 2 Hem Onc [address] [place], [place] [address] 09/20/2024 9:30 AM EST Office Visit Palliative Medicine [address] [place] [phone] Kaye Augustine MD [address] [place] [address] 09/26/2024 9:30 AM EST Laboratory Laboratory [address] [place] [phone] [address] [place] [address] 09/27/2024 9:30 AM EST Office Visit Hematology/Oncology [address] [place], [place] [phone] Chitra Bass MD [address] [facility] [address] [place], [place] [address] 09/27/2024 10:00 AM EST Hem/Onc Treatment Hematology/Oncology Treatment, [address], [place] [phone] 10/03/2024 9:30 AM EDT Laboratory Laboratory [address] [place] [phone] [place] [address] 10/04/2024 9:30 AM EDT Hem/Onc Treatment Hematology/Oncology Treatment, [place] [address] [place] [address] Health Maintenance Due Date Last Done Comments Lipid Panel 1980 Hepatitis C Screening 1998 DTap/Tdap Vaccines (1 - Tdap) 1999 Hepatitis B Vaccine (1 of 3 - 19+ 3-dose series) 1999 Pneumococcal Vaccine: Pediatrics (0 to 5 Years) and At-Risk Patients (6 to 18 Years and 19+ Years) (1 of 2 - PCV) 1999 Depression Screening 04/30/2021 04/30/2020 COVID-19 Vaccine ( - 2023-2 5 season) 2024 Influenza Vaccine [...] this encounter Medical Devices Implanted Type Area Rides Supervisor Device Identifier Shelf Expiration Date Model / Serial / Lot Power Port 8fr Sngl Lumen Plas - [id number] Implanted:Qty : 1 on 09/08/2024 by Armond Drew MD at OR [facility] Right: Chest CR BARD : PERIPHERAL VASCULAR [id number] 10/23/2025 [id number] / / [id number] documented as of this encounter
--- OUTSIDE RECORDS SUMMARY | 2024-09-19 23:22 | External Medical Summary | Summary of Care ---
Author Name Unknown Organization [facility] Address [address] [place] [address] Phone [phone] Care Team Providers Care Portable Router Operator Name Role Phone Unavailable Primary Care Provider Unavailabl e Reason for Visit * Reason Onset Date Comments Palliative Care Follow-up 09/15/2024 Encounter Details Date Type Department Care Team (Late st Contact Info) Description 09/15/2024 9:45 AM EST Scheduled Telephone Palliative Medicine, [address] 5[address] [place] [address] [place], Nurse Palliative Medicine [address] [phone] Allergies No known active allergiesdocumented as of [...] encounter Miscellaneous Notes * Telephone Encounter - Emi Eugene LPN - 09/15/2024 11:[address] Augustine: Our next step would be going upto MS Contin 30 mg twice a day, I am happy to send it in if she wants, or we can wait until next week. Can you ask her? Is she taking the steroids. Spoke with patient Confirmed she is taking the steroid Would prefer to wait to make any changes until she sees you on 09/20 Advised patient she can call sooner if she changes her mind * Telephone Encounter - Emi Eugene LPN - 09/15/2024 10:16 AM EST Palliative f/u phone call Last seen 09/13: ASSESSMENT/PLAN: Luanne Farrell is a 44 year old female seen in follow-up for goals of care and pain and symptom management. Cervical CA, locally advanced with L ureteral involvement and shelby mets, on chemo and radiation x 5 weeks - Is 1 week into tx, now with severe pain - Receiving IV fluids today and will probably have some Wednesday as well Cancer related pain - worsening - Will add MS Contin 15mg BID - Increase Oxycodone to 10mg q4h PRN - Add Dexamethasone 4mg BID x 4 days - Add Azo as well - Reviewed ED precautions Opioid induced constipation - Miralax daily or BID - Senna 2 tab qHS or BID if needed - Needs a BM every day or every other day Goals of care - Continue tx - Code status if admitted: FULL Call to patient Spoke with patient Consistently taking the morphine 15mg BID 6am and 6pm She is still needing to take an oxycodone pretty consistently around every 6 hours Patient wasn't sure if that was normal or not Not having any side effects from the morphine Next visit tbs while getting treatment on 09/20 Please advise if any changes need made prior to that documented in this encounter Plan of Treatment Upcoming Encounters Date Type Department Care Team (Late st Contact Info) Description 09/18/2024 3:00 PM EST Hem/Onc Treatment Hematology/[address]cology [address] [phone] Nori, Chair 5 Hem Onc [address] [address] 09/19/2024 9:30 AM EST Laboratory Laboratory [address] [place] [phone] [place] [address] 09/20/2024 9:00 AM EST Office Visit Hematology/Oncology [address] [phone] Angela Carranza CRNP [address] [facility] [place] [address] 09/20/2024 9:30 AM EST Hem/Onc Treatment Hematology/Oncology Treatment, [address] [phone] Nori, Chair 2 Hem Onc [address] [place] [address] 09/20/2024 9:30 AM EST Office Visit Palliative Medicine [facility] [address] [phone] Kaye Augustine MD [address] [facility] [place] [address] 09/26/2024 9:30 AM EST Laboratory Laboratory [address] [place] [phone] [place] [address] 09/27/2024 9:30 AM EST Office Visit Hematology/Oncology [facility] 200 [facility] [place] [phone] Chitra Bass MD 200 [facility] [place] [address] 09/27/2024 10:00 AM EST [facility] [phone] 10/03/2024 9:30 AM EDT Laboratory Laboratory [address] [place] [address] [place] [address] 10/04/2024 9:30 AM EDT Hem/Onc Treatment Hematology/Oncology Treatment, [place] [facility] [phone] Health Maintenance Due Date Last Done Comments [...] this encounter Medical Devices Implanted Type Area Evaluator Device Identifier Shelf Expiration Date Model / Serial / Lot Power Port 8fr Sngl Lumen Plas - [id number] Implanted:Qty : 1 on 09/08/2024 by Armond Drew MD at OR [facility] Right: Chest CR BARD : PERIPHERAL VASCULAR [id number] 10/23/2025 [id number] / / [id number] documented as of this encounter
--- OUTSIDE RECORDS SUMMARY | 2024-09-19 23:23 | External Medical Summary | Summary of Care ---
Author Name Unknown Organization [facility] Address [address] [place] [address] Phone [phone] Care Team Providers Care Statement Services Representative Name Role Phone Unavailable Primary Care Provider Unavailabl e Reason for Visit * Reason Comments Follow Up Encounter Details Date Type Department Care Team (Late st Contact Info) Description 09/13/2024 9:30 AM EST Office Visit Palliative Medicine [facility] [address] [place] [address] Kaye Augustine MD [address] [place] [phone] Cancer related pain*; Palliative care encounter; Constipation due to pain medication Allergies No known active allergiesdocumented as of this encounter (statuses as of 09/13/2024) Medications Polyethylene Glycol 3350 17 GM/SCOOP Oral Powder (MiraLax) Take 17 g by mouth daily as needed for Constipation. One heaping tablespoon in 8 ounces of water or juice; for severe constipation. 510 g 3 08/03/19 25 Active Prochlorperazin e Maleate 10 MG Oral Tablet (Compazine)Eleni cations:Squamou s cell carcinoma of cervix (HCC) Take 1 Tablet by mouth every 6 hours as needed for Nausea. 30 Tablet 08/28/19 25 Active Ondansetron HCl 8 MG Oral Tablet (Zofran)Indicat ions:Squamous cell carcinoma of cervix (HCC) Take 1 Tablet by mouth every 8 hours as needed for Nausea. 39 Tablet 08/28/19 25 Active Lidocaine-Prilo jannette 2.5-2.5 % External Cream (Emla)Indicatio ns:Squamous cell carcinoma of cervix (HCC) APPLY TO SKIN OVER MEDIPORT & COVER 1HR PRIOR TO ACCESSING. 30 g 09/03/19 25 Active Senna 8.6 MG Oral TabletIndicatio ns:Therapeutic opioid induced constipation Take 1 Tablet by mouth at bedtime. 30 Tablet 09/06/19 25 Active Morphine Sulfate ER 15 MG Oral Tablet Extended Release (Ms Contin)Indicati ons:Cancer related pain Take 1 Tablet by mouth in the morning and 1 Tablet before bedtime. 28 Tablet 09/13/19 25 Active oxyCODONE HCl 10 MG Oral Tablet (Roxicodone)Ind ications:Cancer related pain Take 1 Tablet by mouth every 4 hours as needed for Pain, Severe. 40 Tablet 09/13/19 25 Active Cranberry-Vitam in C 250-60 MG Oral Capsule (AZO Cranberry Urinary Tract) Take 2 Capsules by mouth 2 times a day as needed (urinary pain). 30 Capsule 09/13/19 25 Active dexAMETHasone 4 MG Oral Tablet (Decadron)Indic ations:Cancer related pain Take 1 Tablet by mouth 2 times a day with morning and evening meals. 20 Tablet 09/13/19 25 Active traMADol HCl 50 MG Oral Tablet (Ultram) Take 1 Tablet by mouth every 6 hours as needed for Pain, Moderate. 30 Tablet 08/03/19 25 025 Discontinued Ibuprofen 600 MG Oral Tablet (Motrin)Indicat ions:Pelvic pain in female Take 1 tablet every 6 hours as needed for pain. 30 Tablet 3 08/03/19 25 025 Discontinued Acetaminophen 500 MG Oral Capsule Take 1 Capsule by mouth every 4 hours as needed. 025 Discontinued oxyCODONE HCl 5 MG Oral Tablet (Oxy IR)Indications: Cancer related pain Take 1 Tablet by mouth every 4 hours as needed for Pain, Severe. 30 Tablet 09/06/19 25 025 Discontinued(R efill) documented as of this encounter (statuses as of 09/13/2024) Active Problems Problem Noted Date Diagnosed Date Dehydration 09/13/2024 Encounter for antineoplastic chemotherapy 2024 Squamous cell carcinoma of cervix 07/31/2024 Tobacco use documented as of this encounter (statuses as of 09/13/2024) Resolved Problems Problem Noted Date Diagnosed Date Resolved Date Encounter for supervision of other normal 01/31/2002 04/26/2002 Overview (11/26/2015): ICD-10 update of inactive term documented as of this encounter (statuses as of 09/13/2024) Social History Tobacco Use Types Packs/Day Years [...] Sign Reading Time Taken Comments Blood Pressure 116/75 09/13/2024 9:14 AM EST Pulse 102 09/13/2024 9:14 AM EST Temperature 37 C (98.6 F) 09/13/2024 9:14 AM EST Respiratory Rate 18 09/13/2024 9:14 AM EST Oxygen Saturation 93% 09/13/2024 9:14 AM EST Inhaled Oxygen Concentration - - Weight 57.6 kg (126 lb 15.8 oz) 09/13/2024 9:14 AM EST Height - - Body Mass Index 22.49 09/08/2024 8:09 AM EST documented in this encounter Patient Instructions * Patient Instructions* Kaye Augustine MD - 09/13/2024 9:14 AM EST Our Palliative Medicine Clinic is available Wednesday through Wednesday during business hours, so we are unavailable on weekends and holidays. Please ensure that you request refills early in the week as itmay take 1-2 days for them to be addressed and filled, for authorizations to be approved, or for the pharmacy to order them if needed. You can contact our office at [phone], which is our clinicin [place], or you can message us on dotHIV. If you have an emergency outside of these hours, werecommend calling your primary care clinic, Oncology office, or going to the ER if you have a medical emergency. CHANGES TODAY (09/13) PAIN - Start taking long acting morphine (MS CONTIN 15mg) TWICE a day - do not skip a dose - Use Oxycodone 10mg every FOUR hours NEEDED in between in case you have pain - keep note of howoften you take it - We also added a steroid (dexamethasone) 4mg to take every morning and midday - do not take the second dose too late at night or you may have issues sleeping - I also sent in an over the counter medicaiton called Azo to try to help with the urinary symptoms- take it twice a day as needed BOWELS - Make sure you have a bowel movement every day or every other day - Increase Miralax to twice a day if needed - Increase Senna to 2 tablets at night or even twice a day if needed documented in this encounter Progress Notes * Kaye Augustine MD - 09/13/2024 9:52 AM EST Palliative Medicine Outpatient Progress Note [facility] Palliative Medicine Outreach [address] [place] [address] Name: Luanne Farrell Date: 09/13/2024 HPI: Luanne Farrell is a 44 year old female with cervical cancer, HPV positive, with concern for left ureteral involvement and shelby mets in the pelvic sidewalls seen in follow-up for goals of care and symptom management. At last visit, I started her on Oxycodone 5mg q4h PRN. She had also received her first treatment. Today she reports severe pain. She appears uncomfortable. She completed 3 days of Bactrim as prescribed by Rad Onc but still has a lot of urinary frequency, but then not much comes out. No blood in urine. Palliative symptoms: Pain: Severe, taking oxycodone 5mg q4h routinely and still has severe pain Nausea/Vomiting: was nauseated yesterday but improved after zofran Appetite: poor, not eating much Constipation: IS constipated, had a BM today though Confusion: no Sleep issues: hard to sleep due to pain Dyspnea: no Mood issues: no Falls: no Other: no Examination: BP 116/75 | Pulse 102 | Temp 37 C (98.6 F) | Resp 18 | Wt 57.6 kg (126 lb 15.8 oz) | SpO2 93% |BMI 22.49 kg/m | BSA 1.6 m Constitutional: + acute distress, chronically ill HENT: normocephalic, atraumatic. Eyes: anicteric, sclera and conjunctiva normal. Neck: no stridor Chest: normal respiratory effort Abdominal: nondistended Extremities: no edema Data Review: Lab / Imaging Results: Cr 1.3, mildly elevated Information obtained from Ray for collateral history Discussion with other team members: I discussed patient with Dr Keith, Rad Onc, as well as Dr Tammie DOYLE from Hem Onc Decision-making Capacity: Does Patient have Decisional Capacity? y Does Patient have a Healthcare Agent? Y, Advanced Care Planning (see ACP Tab): Deferred ASSESSMENT/PLAN: Luanne Farrell is a 44 year [...] tx - Code status if admitted: FULL Follow up in 2 days. . They are able to do video visits. Next visit with me. I spent a total of 41 minutes on the date of service in preparation, delivery, and documentation ofthe care provided to Luanne Farrell excluding any time spent in the performance of separately billedservices. Kaye Augustine MD [facility] Palliative Medicine [phone] * Emi Eugene LPN - 09/13/2024 9:14 AM EST TBS in treatment room documented in this encounter Plan of Treatment Upcoming Encounters Date Type Department Care Team (Late st Contact Info) Description 09/15/2024 9:45 AM EST Scheduled Telephone Palliative Medicine, [facility] 400 [facility] 5th [place] [phone] [place], Nurse Palliative Medicine [address] [address] 09/19/2024 9:30 AM EST Laboratory Laboratory [address] [place] [phone] [address] [place] [address] 09/20/2024 9:30 AM EST Hem/Onc Treatment Hematology/Oncology Treatment, [address] [place] [address] Nori, Chair 2 Hem Onc [address] [place] [address] 09/20/2024 9:30 AM EST Office Visit Palliative Medicine [facility] [address], [place] [address] Kaye Augustine MD [address] [place] [address] 09/26/2024 9:30 AM EST Laboratory Laboratory [address] [place] [phone] [place] [address] 09/27/2024 9:30 AM EST Office Visit Hematology/Oncology [facility] [address] [facility] [place] [phone] Chitra Bass MD 200 [facility] [place] [address] 09/27/2024 10:00 AM EST Hem/Onc Treatment Hematology/Oncology Treatment, [place] [facility] [phone] 10/03/2024 9:30 AM EDT Laboratory Laboratory [address] [place] [phone] [address] [place] [address] 10/04/2024 9:30 AM EDT Hem/Onc Treatment Hematology/Oncology Treatment, [place] [facility] [phone] Health Maintenance Due Date Last Done Comments Lipid Panel 1980 COVID-19 Vaccine (#1) 1985 Hepatitis C Screening 1998 DTap/Tdap Vaccines (1 - Tdap) 1999 Hepatitis B Vaccine (1 of 3 - 19+ 3-dose series) 1999 Pneumococcal Vaccine: Pediatrics (0 to 5 Years) and At-Risk Patients (6 to 18 Years and 19+ Years) (1 of 2 - PCV) 1999 Depression Screening 04/30/2021 04/30/2020 Influenza Vaccine (FLU shot) (#1) 2024 Mammogram [...] this encounter Medical Devices Implanted Type Area Stripping Shovel Oiler Device Identifier Shelf Expiration Date Model / Serial / Lot Power Port 8fr Sngl Lumen Plas - [id number] Implanted:Qty : 1 on 09/08/2024 by Armond Drew MD at OR [facility] Right: Chest CR BARD : PERIPHERAL VASCULAR [id number] 10/23/2025 [id number] / / [id number] documented as of this encounter Visit Diagnoses Diagnosis Cancer related pain- Primary Neoplasm related pain (acute) (chronic) Palliative care encounter Encounter for palliative care Constipation due to pain medication Other constipation documented in this encounter"
--- OUTSIDE RECORDS SUMMARY | 2024-09-19 23:23 | External Medical Summary | Summary of Care ---
Author Name Unknown Organization [facility] Address [address] [place] [address] Phone [phone] Care Team Providers Care Director Dental Services Name Role Phone Unavailable Primary Care Provider Unavailabl e Reason for Visit * Reason Comments Infusion Hydration Encounter Details Date Type Department Care Team (Latest Contact Info) Description 09/14/2024 3:00 PM EST Hem/Onc Treatment Hematology/Oncology Treatment, [place] 200 [facility] [place] [phone] Nori, Chair 4 Hem Onc Scenery [address] [place] [address] Dehydration*; Squamous cell carcinoma of cervix (HCC) Allergies [...] 06/07/2024 Does the household have a re lar source of income? (Household - for ages [...] Sign Reading Time Taken Comments Blood Pressure 130/89 09/14/2024 2:50 PM EST Pulse 87 09/14/2024 2:50 PM EST Temperature 36.5 C (97.7 F) 09/14/2024 2:50 PM ES T Respiratory Rate 18 09/14/2024 2:50 PM EST Oxygen Saturation 94% 09/14/2024 2:50 PM EST Inhaled Oxygen Concentration - - Weight - - Height - - Body Mass Index - - documented in this encounter Nursing Notes * Genesis Gauthier RN - 09/14/2024 5:12 PM EST Patient tolerated hydration without issue. Port needle flushed with 10 ml NSS, blood return noted, and port locked with additional 10 ml NSS. Burnett needle removed, intact, gauze dressing applied. Goals: Patient will remain free from injury. Possible barriers to meeting goals: Ambulating with IV pole Stability of the patient: Moderately stable - low risk of patient condition declining or worsening Summary regarding today's goals: Met: Patient remained free from harm. Pt discharged in stable condition. * Genesis Gauthier RN - 09/14/2024 4:16 PM EST Chair 3 Patient here for hydration. Patient offers no acute complaints. Port accessed with brisk blood return. Patient [...] 9:45 AM EST Scheduled Telephone Palliative Medicine, [facility] 400 [facility] 5th Floor [place] [address] [place], Nurse Palliative Medicine [facility] 5th [facility] [phone] 09/18/2024 3:00 PM EST Hem/Onc Treatment Hematology/[address], [address] [phone] Nori, Chair 5 Hem Onc [facility] 200 [facility] [place] [address] 09/19/2024 9:30 AM EST Laboratory Laboratory [address] [place] [phone] [place], Lab [address] [place] [address] 09/20/2024 9:00 AM EST Office Visit Hematology/Oncology [facility] [place] 200 [facility] [place] [address] Angela Carranza CRNP [address] [place] [address] 09/20/2024 9:30 AM EST Hem/Onc Treatment Hematology/Oncology [address], [address] [phone] Nori, Chair 2 Hem Onc [facility] 200 [facility] [place] [address] 09/20/2024 9:30 AM EST Office Visit Palliative Medicine [facility] [address] [phone] Kaye Augustine MD [address] [place], [place] [phone] 09/26/2024 9:30 AM EST Laboratory Laboratory [address] [place] [phone] [place] [address] 09/27/2024 9:30 AM EST Office Visit Hematology/Oncology [facility] 200 [facility] [place] [phone] Chitra Bass MD 200 [facility] [place] [address] 09/27/2024 10:00 AM EST Hem/Onc Treatment Hematology/Oncology Treatment, [place] [facility] [address] 10/03/2024 9:30 AM EDT Laboratory Laboratory [address] [place] [phone] [address] [place] [address] 10/04/2024 9:30 AM EDT Hem/Onc Treatment Hematology/Oncology Treatment, [place] [facility] [phone] Health Maintenance Due Date Last Done Comments [...] this encounter Medical Devices Implanted Type Area Management Specialist Device Identifier Shelf Expiration Date Model / Serial / Lot Power Port 8fr Sngl Lumen Plas - [id number] Implanted:Qty : 1 on 09/08/2024 by Armond Drew MD at OR [facility] Right: Chest CR BARD : PERIPHERAL VASCULAR [id number] 10/23/2025 [id number] / / [id number] documented as of this encounter Visit Diagnoses Diagnosis Dehydration- Primary Squamous cell carcinoma of cervix (HCC) Malignant neoplasm of cervix uteri, unspecified site documented in this encounter Administered Medications Inactive Administered Medications - up to 3 most recent administrations Medication Order MAR Action Action Date Dose Rate Site NSS infusion FOR HYDRATION Intravenous, at 500 mL/hr Administer over 2 Hours, ONCE, 1 dose, On Zoe 09/14/24 at 1615Indications:Dehydrati on,Squamous cell carcinoma of cervix (HCC) Start Infusion 09/14/2024 3:02 PM EST 1,000 mL 500 mL/hr documented in this encounter
--- OUTSIDE RECORDS SUMMARY | 2024-09-19 23:23 | External Medical Summary ---
Author Name Unknown Address Unknown Organization K01:[facility] - [address] [facility] [address] Laboratory Report Ordering Provider Test Date Status TIRSO FELTON 09/12/2024 09:58:09 Final Observation Date Value Abnormality Reference (Units ) Status Magnesium 09/12/2024 09:58:09 2.0 1.5-2.6 (m g/dL) Final Performing Location [facility] [address] [facility] [address]
--- OUTSIDE RECORDS SUMMARY | 2024-09-19 23:23 | External Medical Summary ---
Author Name Unknown Address Unknown Organization K01:LABORATORY [facility] - [address] [place] [address] Laboratory Report Ordering Provider Test Date Status RAFAELA DAVEY 09/13/2024 13:00:00 Final Observation Date Value Abnormality Reference (Units ) Status Bacteria identified in Specimen by Culture 09/13/2024 13:00:00 < 100 colonies/ml (no growth) Final Test: Culture, Urine, Quanti tative
Specimen Source: Urine, Clean Catch
Specimen Type: Urine
Specimen Date: 09/13/2024 1300
Result Date: 09/14/2024 1212
Result Status: Final result
Resulting Lab: LAB[facility]ATORY [facility]
[address]
[place] [id number]

CULTURE

< 100 colonies/ml (no growth)

null Performing Location LABORATORY [facility] - [address] [facility] [address]
--- OUTSIDE RECORDS SUMMARY | 2024-09-19 23:23 | External Medical Summary | Summary of Care ---
Author Name Unknown Organization [facility] Address [address] [place] [address] Phone [phone] Care Team Providers Care Lead Fabricator Name Role Phone Unavailable Primary Care Provider Unavailabl e Encounter Details Date Type Department Care Team (Late st Contact Info) Description 09/15/2024 Orders Only Hematology/Oncology, [facility] [address] [place], [place] [phone] Angela Carranza CRNP [address] [place] [address] Dehydration* Allergies No known active allergiesdocumented as of [...] 9:45 AM EST Scheduled Telephone Palliative Medicine, [facility] 400 [facility] 5th Floor [place] [address] [place], Nurse Palliative Medicine [facility] 5th [facility] [address] Arrived 09/18/2024 3:00 PM EST Hem/Onc Treatment Hematology/Oncology [address], [address] [phone] Nori, Chair 5 Hem Onc [address] [place] [address] 09/19/2024 9:30 AM EST Laboratory Laboratory [address] [place] [phone] [place], Lab [address] [place] [address] 09/20/2024 9:00 AM EST Office Visit Hematology/Oncology [facility] [address] [place] [address] Angela Carranza CRNP [address] [facility] [address] 09/20/2024 9:30 AM EST Hem/Onc Treatment Hematology/Oncology Treatment, [address] [phone] Nori, Chair 2 Hem Onc [facility] 200 [facility] [place] [address] 09/20/2024 9:30 AM EST Office Visit Palliative Medicine [facility] [address] [facility] [phone] Kaye Augustine MD [address] [place] [address] [place] [address] 09/26/2024 9:30 AM EST Laboratory Laboratory [address] [place] [phone] [place] [address] 09/27/2024 9:30 AM EST Office Visit Hematology/Oncology [address] [place] [phone] Chitra Bass MD 200 [facility] [place] [address] 09/27/2024 10:00 AM EST Hem/Onc Treatment Hematology/Oncology [address] [phone] 10/03/2024 9:30 AM EDT Laboratory Laboratory [address] [place] [phone] [address] [place] [address] 10/04/2024 9:30 AM EDT Hem/Onc Treatment Hematology/Oncology [address] [place] [phone] Health Maintenance Due Date Last Done Comments [...] this encounter Medical Devices Implanted Type Area Linux Programmer Device Identifier Shelf Expiration Date Model / Serial / Lot Power Port 8fr Sngl Lumen Plas - [id number] Implanted:Qty : 1 on 09/08/2024 by Armond Drew MD at OR [facility] Right: Chest CR BARD : PERIPHERAL VASCULAR [id number] 10/23/2025 [id number] / / [id number] documented as of this encounter Visit Diagnoses Diagnosis Dehydration- Primary documented in this encounter
--- OUTSIDE RECORDS SUMMARY | 2024-09-19 23:23 | External Medical Summary | Summary of Care ---
Author Name Unknown Organization [facility] Address [address] [place] [address] Phone [phone] Care Team Providers Care Blow Off Worker Name Role Phone Unavailable Primary Care Provider Unavailabl e Reason for Visit * Reason Comments Outpatient Testing Encounter Details Date Type Department Care Team (Late st Contact Info) Description 09/12/2024 10:00 AM EST Laboratory Laboratory [address] [place] [phone] [place] [address] Squamous cell carcinoma of cervix (HCC) Allergies No known active allergiesdocumented as of this encounter (statuses as of 09/12/2024) Medications traMADol HCl 50 MG Oral Tablet (Ultram) Take 1 Tablet by mouth every 6 hours as needed for Pain, Moderate. 30 Tablet 5 Active Additional Information Patient not taking.Reported on 09/08/2024 Ibuprofen 600 MG Oral Tablet (Motrin)Indicati ons:Pelvic pain in female Take 1 tablet every 6 hours as needed for pain. 30 Tablet 3 5 Active Polyethylene Glycol 3350 17 GM/SCOOP Oral Powder (MiraLax) Take 17 g by mouth daily as needed for Constipation. One heaping tablespoon in 8 ounces of water or juice; for severe constipation. 510 g 3 5 Active Acetaminophen 500 MG Oral Capsule Take 1 Capsule by mouth every 4 hours as needed. Active Prochlorperazine Maleate 10 MG Oral Tablet (Compazine)Indic ations:Squamous cell carcinoma of cervix (HCC) Take 1 Tablet by mouth every 6 hours as needed for Nausea. 30 Tablet 5 Active Ondansetron HCl 8 MG Oral Tablet (Zofran)Indicati ons:Squamous cell carcinoma of cervix (HCC) Take 1 Tablet by mouth every 8 hours as needed for Nausea. 39 Tablet 5 Active Lidocaine-Priloc yessy 2.5-2.5 % External Cream (Emla)Indication s:Squamous cell carcinoma of cervix (HCC) APPLY TO SKIN OVER MEDIPORT & COVER 1HR PRIOR TO ACCESSING. 30 g 5 Active oxyCODONE HCl 5 MG Oral Tablet (Oxy IR)Indications:C ancer related pain Take 1 Tablet by mouth every 4 hours as needed for Pain, Severe. 30 Tablet 5 Active Senna 8.6 MG Oral TabletIndication s:Therapeutic opioid induced constipation Take 1 Tablet by mouth at bedtime. 30 Tablet 5 Active documented as of this encounter (statuses as of 09/12/2024) Active Problems Problem Noted Date Diagnosed Date Encounter for antineoplastic chemotherapy 2024 Squamous cell carcinoma of cervix 07/31/2024 Tobacco use documented as of this encounter (statuses as of 09/12/2024) Resolved Problems Problem Noted Date Diagnosed Date Resolved Date Encounter for supervision of other normal 01/31/2002 04/26/2002 Overview (11/26/2015): ICD-10 update of inactive term documented as of this encounter (statuses as of 09/12/2024) Social History Tobacco Use Types Packs/Day Years [...] Team (Late st Contact Info) Description 09/13/2024 9:00 AM EST Office Visit Hematology/Oncology [facility] [address] [place] [phone] Angela Carranza CRNP [address] [place] [address] 09/13/2024 9:30 AM EST Hem/Onc Treatment Hematology[facility]cology Treatment, [place] [facility] [phone] Nori, Chair 8 Hem Onc [address] 200 [facility] [place] [address] 09/13/2024 9:30 AM EST Office Visit Palliative Medicine [facility] [place] 200 [facility] [place] [phone] Kaye Augustine [facility] [phone] 09/19/2024 9:30 AM EST Laboratory Laboratory [address] [place] [phone] [address] [place] [address] 09/20/2024 9:30 AM EST Hem/Onc Treatment Hematology/Oncology Treatment, [place] 200 [facility] [place] [phone] Nori, Chair 2 Hem Onc [address] [place] [address] 09/26/2024 9:30 AM EST Laboratory Laboratory [address] [place] [phone] [place] [address] 09/27/2024 9:30 AM EST Office Visit [facility]ology[facility]cology [facility] [phone] Chitra Bass MD 200 [facility] [address] 09/27/2024 10:00 AM EST [facility] [phone] 10/03/2024 9:30 AM EDT Laboratory Laboratory [address] [place] [phone] [place], [address] [place] [address] 10/04/2024 9:30 AM EDT [facility] 200 [facility], [place] [phone] Pending Results Name Type Priority Associated Diagnoses Date /Time CBC WITH WBC DIFFERENTIAL Lab STAT Squamous cell carcinoma of cervix (HCC) 09/12/2024 9:58 AM EST COMPREHENSIVE METABOLIC PANEL Lab STAT Squamous cell carcinoma of cervix (HCC) 09/12/2024 9:58 AM EST MAGNESIUM Lab STAT Squamous cell carcinoma of cervix (HCC) 09/12/2024 9:58 AM EST TSH WITH FREE T4 IF INDICATED Lab STAT Squamous cell carcinoma of cervix (HCC) 09/12/2024 9:58 AM EST BETA-HCG, QUANTITATIVE Lab STAT Squamous cell carcinoma of cervix (HCC) 09/12/2024 9:58 AM EST CBC Lab STAT Squamous cell carcinoma of cervix (HCC) 09/12/2024 9:58 AM EST DIFFERENTIAL, AUTOMATED Lab STAT Squamous cell carcinoma of cervix (HCC) 09/12/2024 9:58 AM EST Health Maintenance Due Date Last [...] this encounter Medical Devices Implanted Type Area Help Desk Operator Device Identifier Shelf Expiration Date Model / Serial / Lot Power Port 8fr Sngl Lumen Plas - [id number] Implanted:Qty : 1 on 09/08/2024 by Armond Drew MD at OR [facility] Right: Chest CR BARD : PERIPHERAL VASCULAR [id number] 10/23/2025 [id number] / / [id number] documented as of this encounter Visit Diagnoses Diagnosis Squamous cell carcinoma of cervix (HCC) Malignant neoplasm of cervix uteri, unspecified site documented in this encounter
--- OUTSIDE RECORDS SUMMARY | 2024-09-19 23:23 | External Medical Summary | Summary of Care ---
Author Name Unknown Organization [facility] Address [address] [place] [address] Phone [phone] Care Team Providers Care Slip Seat Coverer Name Role Phone Unavailable Primary Care Provider Unavailabl e Encounter Details Date Type Department Care Team (Late st Contact Info) Description 09/13/2024 Orders Only Hematology/Oncology [facility] [place] 200 [facility] [place] [phone] Chitra Bass MD 200 [facility] [place] [address] Allergies No known active allergiesdocumented as of [...] 9:45 AM EST Scheduled Telephone Palliative Medicine, [address] 5th Floor [place] [address] [place], Nurse Palliative Medicine [facility] 5th [facility] [address] 09/19/2024 9:30 AM EST Laboratory Laboratory [address] [place] [phone] [place] [address] 09/20/2024 9:30 AM EST Hem/Onc Treatment Hematology/Oncology Treatment, [address], [place] [phone] Nori, Chair 2 Hem Onc [address] [place] [address] 09/20/2024 9:30 AM EST Office Visit Palliative Medicine [address] [phone] Kaye Augustine MD 400 [place] [address] 09/26/2024 9:30 AM EST Laboratory Laboratory [address] [place] [phone] [place] [address] 09/27/2024 9:30 AM EST Office Visit Hematology/Oncology [address] [place] [phone] Chitra Bass MD 200 [facility] [place] [address] 09/27/2024 10:00 AM EST Hem/Onc Treatment Hematology/Oncology Treatment, [place] 200 [facility] [place] [phone] 10/03/2024 9:30 AM EDT Laboratory Laboratory [address] [place] [phone] [place], Lab [address] [place] [address] 10/04/2024 9:30 AM EDT Hem/Onc Treatment Hematology/Oncology Treatment, [place] [place] [phone] Health Maintenance Due Date Last Done Comments [...] this encounter Medical Devices Implanted Type Area Beef Cattle Farm Worker Device Identifier Shelf Expiration Date Model / Serial / Lot Power Port 8fr Sngl Lumen Plas - [id number] Implanted:Qty : 1 on 09/08/2024 by Armond Drew MD at OR [facility] Right: Chest CR BARD : PERIPHERAL VASCULAR [id number] 10/23/2025 [id number] / / [id number] documented as of this encounter
--- OUTSIDE RECORDS SUMMARY | 2024-09-19 23:23 | External Medical Summary ---
Author Name Unknown Address Unknown Organization [id number]:[place] [facility] [place] [facility] [address] Laboratory Report Ordering Provider Test Date Status TIRSO FELTON 09/12/2024 09:58:09 Final Observation Date Value Abnormality Reference (Units ) Status WBC, Total 09/12/2024 09:58:09 19.74 Above high normal 4.00-10.80 (K/uL) Final RBC 09/12/2024 09:58:09 3.66 3.85-5.15 (M/uL) Final Hemoglobin 09/12/2024 09:58:09 11.1 Below low normal 12.0-15.3 (g/dL) Final HCT 09/12/2024 09:58:09 35.0 Below low normal 36.0-45.2 (%) Final MCV 09/12/2024 09:58:09 95.6 81.5-97.5 (fL) Final MCH 09/12/2024 09:58:09 30.3 27.0-34.0 (pg) Final MCHC 09/12/2024 09:58:09 31.7 32.0-36.0 (g/dL) Final RDW 09/12/2024 09:58:09 12.9 11.5-15.5 (%) Final Platelets 09/12/2024 09:58:09 390 140-400 (K/uL) Final MPV 09/12/2024 09:58:09 11.2 6.6-11.1 (fL) Final Nucleated erythrocytes/100 leukocytes [Ratio] in Blood by Automated count 09/12/2024 09:58:09 0 <=0 (/100 WBCs) Final Performing Location [place] [facility] [place] [address] [facility] [address]
--- OUTSIDE RECORDS SUMMARY | 2024-09-19 23:23 | External Medical Summary ---
Author Name Unknown Address Unknown Organization K01:LABORATORY [address] [facility] [address] Laboratory Report Ordering Provider Test Date Status TIRSO FELTON 09/12/2024 09:58:09 Final hCG can serve as a screening assay for . However, early may not give a positive hCG test result. In addition, some non- women may have a hCG result slightly higher than the reference limit. Careful interpretation of the hCG with clinical history is required to determine whether the patient may be .
Postmenopausal women have higher hCG than premenopausal women. The reference interval for non- premenopausal women is <= 1 mIU/mL, and for postmenopausal women is <= 7 mIU/mL. Observation Date Value Abnormality Reference (Units ) Status Choriogonadotropin.int act+Beta subunit [Units/volume] in Serum or Plasma 09/12/2024 09:58:09 6.2 Above high normal <=1.0 (mIU/mL) Final Performing Location [place] [facility] [place] [facility] [address] [facility] [address]
--- OUTSIDE RECORDS SUMMARY | 2024-09-19 23:23 | External Medical Summary | Summary of Care ---
Author Name Unknown Organization [facility] Address [address] [place] [address] Phone [phone] Care Team Providers Care Polymer Tester Name Role Phone Unavailable Primary Care Provider Unavailabl e Reason for Visit * Reason Comments Chemotherapy C1/D8 - Cisplatin * Episode Based Medications (Routine) - Authorized Specialty Diagnoses / Procedures Referred By Sujit alberts Referred To Contact Diagnoses Encounter for antineoplastic chemotherapy Squamous cell carcinoma of cervix (HCC) Procedures MA CISPLATIN 10 MG INJECTION MA FOSAPREPITANT INJECTION MA INJ PEMBROLIZUMAB Chitra Bass MD [address] [place] [address] [place] [address] Phone: tel: fax: Hematology/Oncology Treatment, [address] [address] Phone: tel: fax: Referral ID Status Reason Start Date Expiration Date V isits Requested Visits Authorized [id number] Authorized 09/01/2024 02/27/[phone] Encounter Details Date Type Department Care Team (Latest Contact Info) Description 09/13/2024 9:30 AM EST Hem/Onc Treatment Hematology/Oncolog y Treatment, [address] [phone] Chair Nori 8 Hem On[address] [place] [address] Encounter for antineoplastic chemotherapy*; Squamous cell carcinoma of cervix (HCC) Allergies No known active allergiesdocumented as of this encounter (statuses as of 09/14/2024) Medications Polyethylene Glycol 3350 17 GM/SCOOP Oral [...] as of this encounter (statuses as of 09/14/2024) Active Problems Problem Noted Date Diagnosed Date Dehydration 09/13/2024 Encounter for antineoplastic chemotherapy 2024 Squamous cell carcinoma of cervix 07/31/2024 Tobacco use documented as of this encounter (statuses as of 09/14/2024) Resolved Problems Problem Noted Date Diagnosed Date Resolved Date Encounter for supervision of other normal 01/31/2002 04/26/2002 Overview (11/26/2015): ICD-10 update of inactive term documented as of this encounter (statuses as of 09/14/2024) Social History Tobacco Use Types Packs/Day Years [...] AM EST documented as of this encounter Nursing Notes * Renetta Aleman RN - 09/13/2024 4:12 PM EST Goals: Patient will remain free from injury. Possible barriers to meeting goals: ambulating with IV pole Stability of the patient: Moderately stable - low risk of patient condition declining or worsening Summary regarding today's goals: Met: pt remained free of harm today Patient tolerated treatment well without any acute issues or problems. Patient left facility in stable condition and denied any further needs. Patient will return for hydration tomorrow per VIVEK Jacome - will also receive IV hydration on Wednesday as well. * Renetta Aleman RN - 09/13/2024 3:18 PM EST Chair 12. Port accessed, no issues. Patient saw VIVEK Jacome today -- see OV note for details. U/A + culture ordered since patient has been having urinary frequency symptoms. Patient to do this while she is here for tx today. Chemotherapy/Immunotherapy agents: CISPLATIN Consent for chemotherapy drug treatment complete, dated, and signed? yes, date - 08/28/2024 Treatment lab parameters met? Yes Has treatment weight changed > than 10%? No Treatment preauthorized? Yes VITALS There were no vitals filed for this visit. BP Readings from Last 2 Encounters: 09/13/24 116/75 09/13/24 116/75 Pulse Readings from Last 2 Encounters: 09/13/24 102 09/13/24 102 Resp Readings from Last 2 Encounters: 09/13/24 18 09/13/24 18 SpO2 Readings from Last 2 Encounters: 09/13/24 93% 09/13/24 93% Temp Readings from Last 2 Encounters: 09/13/24 37 C (98.6 F) 09/13/24 37 C (98.6 F) (Tympanic) Urine protein: N/A Patient education completed for treatment? Yes Blood transfusion consent signed and complete? NA Return appointment scheduled? Yes Patient had provider visit today? Yes - Ok to release order and treat per provider Functional Status: Functional status at today's visit: Fully active, able to carry on all pre-disease performance without restriction The drug name, dose, infusion volume, rate and route of administration, expiration date and time, appearance and physical integrity of the drug and rate set on the pump and sequencing of drug administration (as applicable) were verified by me and second sign-in RN. Patient was assessed for symptoms or adverse side effects during treatment. Patient Education: Patient instructed on use of heat and massage functions where applicable. Patient shown how to operate the heat [...] Care Team (Late st Contact Info) Description 09/14/2024 3:00 PM EST Hem/Onc Treatment Hematology/Oncology [address], [address] [phone] Nori, Chair 4 Hem Onc [facility] 200 [facility] [place] [address] 09/15/2024 9:45 AM EST Scheduled Telephone Palliative Medicine, [facility] [address] 5th Floor [place] [address] [place], Nurse Palliative Medicine [facility] 5th 400 [facility] [address] 09/18/2024 3:00 PM EST Hem/Onc Treatment Hematology/Oncology Treatment, [address] [place] [address] Nori, Chair 5 Hem Onc [facility] 200 [facility] [place] [address] 09/19/2024 9:30 AM EST Laboratory Laboratory [address] [place] [phone] [place] [address] 09/20/2024 9:00 AM EST Office Visit Hematology/Oncology [facility] 200 [facility] [place] [phone] Angela Carranza CRNP [address] [place] [address] 09/20/2024 9:30 AM EST Hem/Onc Treatment Hematology/Oncology [address] [phone] Nori, Chair 2 Hem Onc [address] [place] [address] 09/20/2024 9:30 AM EST Office Visit Palliative Medicine [facility] [address] [place] [phone] Kaye Augustine MD 400 [place] [address] 09/26/2024 9:30 AM EST Laboratory Laboratory [address] [place] [phone] [place] [address] 09/27/2024 9:30 AM EST Office Visit Hematology/Oncology [facility] [place] 200 [facility] [place] [phone] Chitra Bass MD 200 [facility] [place] [address] 09/27/2024 10:00 AM EST Hem/Onc Treatment Hematology/Oncology Treatment, [place] 200 [place] [address] 10/03/2024 9:30 AM EDT Laboratory Laboratory [address] [place] [phone] [place], Lab [address] [place] [address] 10/04/2024 9:30 AM EDT Hem/Onc Treatment Hematology/Oncology Treatment, [place] 200 [place] [address] Health Maintenance Due Date Last [...] this encounter Medical Devices Implanted Type Area Mustanger Device Identifier Shelf Expiration Date Model / Serial / Lot Power Port 8fr Sngl Lumen Plas - [id number] Implanted:Qty : 1 on 09/08/2024 by Armond Drew MD at OR [facility] Right: Chest CR BARD : PERIPHERAL VASCULAR [id number] 10/23/2025 [id number] / / [id number] documented as of this encounter Visit Diagnoses Diagnosis Encounter for antineoplastic chemotherapy- Primary Squamous cell carcinoma of cervix (HCC) Malignant neoplasm of cervix uteri, unspecified site documented in this encounter Administered Medications Inactive Administered Medications - up to 3 most recent administrations Medication Order MAR Action Action Date Dose Rate Site CISplatin (Platinol) 48 mg in NSS 250 mL infusion 48 mg (rounded from 48.3 mg = 30 mg/m2 1.61 m2 Treatment Plan BSA from Recorded weight), IV Piggyback, at 255 mL/hr Administer over 60 Minutes, PROTECT FROM LIGHT During radiation therapy only., ONCE, 1 dose, On Wed09/13/24 at 1145Indications:Encounter for antineoplastic chemotherapy,Squamous cell carcinoma of cervix (HCC) Start Infusion 09/13/2024 12:13 PM EST 48 mg 255 mL/hr Fosaprepitant Dimeglumine (Emend) 150 mg, ondansetron (Zofran) 16 mg, dexamethasone sodium phosphate 12 mg in NSS 250 mL Infusion 150 mg, IV Piggyback, ONCE, 1 dose, On Wed09/13/24 at 1115, Administer over 30 Minutes, Infuse over 30 minutes. Give 30 minutes prior to chemotherapy.Indications:E ncounter for antineoplastic chemotherapy,Squamous cell carcinoma of cervix (HCC) Start Infusion 09/13/2024 10:05 AM EST 150 mg 538.4 mL/hr NSS 1,000 mL with potassium chloride 10 mEq, Magnesium Sulfate 1 g INFUSION Central IV, at 513.5 mL/hr Administer over 2 Hours, CONTINUOUS, Starting on Wed09/13/24 at 1245, Until Wed09/13/24 at 1444Indications:Encounter for antineoplastic chemotherapy,Squamous cell carcinoma of cervix (HCC) Start Infusion 09/13/2024 1:26 PM EST 513.5 mL/hr NSS infusion FOR HYDRATION Intravenous, at 50 mL/hr Administer over 10 Hours, ONCE PRN, 1 dose, Starting on Wed09/13/24 at 1002, Until Wed09/13/24 at 1535Indications:Encounter for antineoplastic chemotherapy,Squamous cell carcinoma of cervix (HCC) Start Infusion 09/13/2024 10:03 AM EST 500 mL 50 mL/hr NSS infusion 1,000 mL, Intravenous, at 500 mL/hr Administer over 2 Hours, Pre-cisplatin hydration, CONTINUOUS, Starting on Wed09/13/24 at 1045, Until Wed09/13/24 at 1244Indications:Encounter for antineoplastic chemotherapy,Squamous cell carcinoma of cervix (HCC) Start Infusion 09/13/2024 10:04 AM EST 1,000 mL 500 mL/hr sodium chloride 0.9 % flush/inj 20 mL 20 mL, IV Push, PRN IV Flush and Lock, Starting on Wed09/13/24 at 1002, Until Wed09/13/24 at 2022, Do not flush if lock, PICC, or central line not in place; IV infusing or unable to flush. For midlines and central lines. For IV Flush and Lock, IVAD is flushed with a total of 20 mL Normal Saline, 10 mL of Normal Saline Flush with 10 mL of Normal Saline acting as IV LOCK.Indications:Encounter for antineoplastic chemotherapy,Squamous cell carcinoma of cervix (HCC) Given 09/13/2024 3:38 PM EST 20 mL documented in this encounter
--- OUTSIDE RECORDS SUMMARY | 2024-09-19 23:23 | External Medical Summary ---
Author Name Unknown Address Unknown Organization K01[place] [facility] [place] [address] [facility] [address] Laboratory Report Ordering Provider Test Date Status FELTONMIRTIRSO 09/12/2024 09:58:09 Final Observation Date Value Abnormality Reference (Units ) Status TSH 09/12/2024 09:58:09 0.65 0.27-4.20 (uIU/mL) Final Performing Location [place] [facility] [place] [address] [facility] [address]
--- OUTSIDE RECORDS SUMMARY | 2024-09-19 23:23 | External Medical Summary ---
Author Name Unknown Address Unknown Organization K01:[facility]ORY [facility] [place] [address] [facility] [address] Laboratory Report Ordering Provider Test Date Status TIRSO FELTON 09/12/2024 09:58:09 Final Observation Date Value Abnormality Reference (Units ) Status BUN 09/12/2024 09:58:09 13 6-20 (mg/dL) Final Creatinine 09/12/2024 09:58:09 1.3 Above high normal 0.5-1.0 (mg/dL) Final Glomerular filtration rate/1.73 sq M.predicted [Volume Rate/Area] in Serum, Plasma or Blood by Creatinine-based formula (CKD-EPI) 09/12/2024 09:58:09 55 Below low normal >=60 (mL/min) Final eGFR is calculated based on the CKD-EPI 2020 equation. Sodium 09/12/2024 09:58:09 130 Below low normal 135 -146 (mmol/L) Final Potassium 09/12/2024 09:58:09 4.4 3.5-5.1 (m mol/L) Final Cl 09/12/2024 09:58:09 91 Below low normal 98- 107 (mmol/L) Final CO2 09/12/2024 09:58:09 27 22-32 (mmo l/L) Final Anion gap 09/12/2024 09:58:09 12 7-15 (mmol /L) Final Glucose 09/12/2024 09:58:09 104 70-120 (mg /dL) Final Albumin 09/12/2024 09:58:09 3.6 Below low normal 3.8 -5.0 (g/dL) Final AST (Aspartate aminotransferase) 09/12/2024 09:58:09 12 10-35 (U/L) Fin al Alk Phos 09/12/2024 09:58:09 73 35-130 (U/ L) Final Bilirubin, Total 09/12/2024 09:58:09 0.2 <=1 .2 (mg/dL) Final Calcium 09/12/2024 09:58:09 9.1 8.4-10.2 ( mg/dL) Final Protein 09/12/2024 09:58:09 6.3 6.0-8.3 (g /dL) Final ALT (Alanine aminotransferase) 09/12/2024 09:58:09 9 Below low normal 10-35 (U/L) Final Performing Location LABORATORY [facility] [place] - [address] [facility] [address]
--- OUTSIDE RECORDS SUMMARY | 2024-09-19 23:23 | External Medical Summary | Summary of Care ---
Author Name Unknown Organization [facility] Address [address] [place] [address] Phone [phone] Care Team Providers Care Folder Inspector Name Role Phone Unavailable Primary Care Provider Unavailabl e Reason for Visit * Reason Onset Date Comments Order Request 09/13/2024 Encounter Details Date Type Department Care Team (Late st Contact Info) Description 09/13/2024 Telephone Hematology/Oncology [facility] [address] [facility] [place] [phone] Chitra Bass MD [address] [place] [address] Order Request Allergies No known active allergiesdocumented [...] encounter Miscellaneous Notes * Telephone Encounter - Gary Long, GRARY - 09/13/2024 10:18 AM EST Angela- please place alteration "dose reduce Cisplatin today 25% and give 1L NSS over 2 HR on 09/15" documented in this encounter Plan of Treatment Upcoming Encounters Date Type Department Care Team (Late st Contact Info) Description 09/15/2024 9:45 AM EST Scheduled Telephone Palliative Medicine, [facility] [address] [facility] 5th Floor [place] [address] [place], Nurse Palliative Medicine [address] [facility] [address] 09/19/2024 9:30 AM EST Laboratory Laboratory [address] [place] [phone] [address] [place] [address] 09/20/2024 9:30 AM EST Hem/Onc Treatment Hematology/Oncology [address], [address] [phone] Nori, Chair 2 Hem Onc [address] [place] [address] 09/20/2024 9:30 AM EST Office Visit Palliative Medicine [facility] [place] [address] [phone] Kaye Augustine MD [address] [place] [address] 09/26/2024 9:30 AM EST Laboratory Laboratory [address] [place] [phone] [place] [address] 09/27/2024 9:30 AM EST Office Visit Hematology/Oncology [facility] [address] [facility] [place] [phone] Chitra Bass MD [address] [facility] [place] [address] 09/27/2024 10:00 AM EST Hem/Onc Treatment [facility]ematology[facility]Oncology [facility], [place] [facility] [phone] 10/03/2024 9:30 AM EDT Laboratory Laboratory [address] [place] [phone] [address] [place] [address] 10/04/2024 9:30 AM EDT Hem/Onc Treatment Hematology/Oncology Treatment, [place] [facility] [phone] Health Maintenance Due Date Last Done Comments [...] this encounter Medical Devices Implanted Type Area [employer] Driver Device Identifier Shelf Expiration Date Model / Serial / Lot Power Port 8fr Sngl Lumen Plas - [id number] Implanted:Qty : 1 on 09/08/2024 by Armond Drew MD at OR [facility] Right: Chest CR BARD : PERIPHERAL VASCULAR [id number] 10/23/2025 [id number] / / [id number] documented as of this encounter
--- OUTSIDE RECORDS SUMMARY | 2024-09-19 23:23 | External Medical Summary | Summary of Care ---
Author Name Unknown Organization [facility] Address [address] [place] [address] Phone [phone] Care Team Providers Care Mat Cleaning Machine Operator Name Role Phone Unavailable Primary Care Provider Unavailabl e Encounter Details Date Type Department Care Team (Late st Contact Info) Description 09/13/2024 Orders Only Hematology/Oncology [facility] [place] [address] [facility] [place] [phone] Chitra Bass MD 200 [facility] [place] [address] Allergies No known active allergiesdocumented as of [...] 9:45 AM EST Scheduled Telephone Palliative Medicine, [address] 5th Floor [place] [address] [place], Nurse [facility] [address] 09/19/2024 9:30 AM EST Laboratory Laboratory [address] [place] [phone] [place] [address] 09/20/2024 9:30 AM EST Hem/Onc Treatment Hematology/Oncology Treatment, [address], [place] [address] Nori, Chair 2 Hem Onc [address] [place] [address] 09/20/2024 9:30 AM EST Office Visit Palliative Medicine [address] [phone] Kaye Augustine MD [address] [facility] [place] [address] 09/26/2024 9:30 AM EST Laboratory Laboratory [address] [place] [phone] [place] [address] 09/27/2024 9:30 AM EST Office Visit Hematology/Oncology [address] [place] [phone] Chitra Bass MD 200 [facility] [place] [address] 09/27/2024 10:00 AM EST Hem/Onc Treatment Hematology/Oncology Treatment, [place] 200 [facility] [place] [phone] 10/03/2024 9:30 AM EDT Laboratory Laboratory [address] [place] [phone] [place], Lab [address] [place] [address] 10/04/2024 9:30 AM EDT Hem/Onc Treatment Hematology/Oncology Treatment, [place] [place] [phone] Health Maintenance Due Date Last Done Comments [...] this encounter Medical Devices Implanted Type Area Windscreen Fitter Device Identifier Shelf Expiration Date Model / Serial / Lot Power Port 8fr Sngl Lumen Plas - [id number] Implanted:Qty : 1 on 09/08/2024 by Armond Drew MD at OR [facility] Right: Chest CR BARD : PERIPHERAL VASCULAR [id number] 10/23/2025 [id number] / / [id number] documented as of this encounter
--- OUTSIDE RECORDS SUMMARY | 2024-09-19 23:23 | External Medical Summary | Summary of Care ---
Author Name Unknown Organization [facility] Address [address] [place] [address] Phone [phone] Care Team Providers Care Transition Assistant Name Role Phone Unavailable Primary Care Provider Unavailabl e Reason for Visit * Reason Comments Re-Check Chemo recheck Encounter Details Date Type Department Care Team (Late st Contact Info) Description 09/13/2024 9:00 AM EST Office Visit Hematology/Oncology [facility] [address] [place] [address] Angela Carranza CRNP [address] [place] [address] Squamous cell carcinoma of cervix (HCC)*; Urinary frequency Allergies No known active allergiesdocumented as of [...] at bedtime. 30 Tablet 09/06/19 25 Active traMADol HCl 50 MG Oral [...] Time Taken Comments Blood Pressure 116/75 09/13/2024 8:56 AM EST Pulse 102 09/13/2024 8:56 AM EST Temperature 37 C (98.6 F) 09/13/2024 8:56 AM EST Respiratory Rate 18 09/13/2024 8:56 AM EST Oxygen Saturation 93% 09/13/2024 8:56 AM EST Inhaled Oxygen Concentration - - Weight 57.6 kg (127 lb) 09/13/2024 8:56 AM EST Height - - Body Mass Index 22.5 09/08/2024 8:09 AM EST documented in this encounter Progress Notes * Angela Carranza CRNP - 09/13/2024 9:00 AM EST Hematology/Oncology Outpatient Clinic note Endy Julio Name: Luanne Farrell Date: 09/13/2024 CHIEF COMPLAINT: Luanne Farrell is a 44 year old female patient of Dr. Chitra Bass here today for f/u visit today. From Patient chart confirmed history with patient. From Dr. 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 She is getting concurrent radiotherapy [facility] with weekly Cisplatin. She is having pain in vaginal area--rates pain9/10. No vaginal bleeding. Has felt sensation to urinate all the time. Recently Dr. Keith from [facility] treatment her with an antibiotic but symptoms are not better. She is using Oxycodone for pain. She is also on Miralax and Senna. ONCOLOGY HISTORY: On 06/23/2024 she had ultrasound of the pelvis done which revealed 6.9 x 6.0 x 6.5 cm mass is seen inferiorly near the lower uterine segment/cervix which demonstrates a hypoechoic central region and could reflect a fatty fibroid. She had MRI pelvis done on 07/20/2024 which revealed solid 6.1 cm mass centered in the cervix and the lower uterine segment and enlarged left external iliac lymph node measuring 1.3 cm. She had a follow-up appointment with the fnp on 07/25/24 and examination revealed cervix with distorted appearance, necrotic appearing mass on the right endocervix, friable approximately 3 cm, dense acetowhitening with mosaicism at 1:00, 6:00 and 9:00. Colposcopy and biopsy was done. Pathology consistent with a invasive squamous cell carcinoma, moderately differentiated. HPV was positive and PD-L1 expression was 70% Final Diagnosis 07/25/2024 A. Endometrium, biopsy: -- Fragments of necrotic squamous cell carcinoma. -- Endometrial tissue not identified. B. Endocervix, curettage: -- Fragments of necrotic squamous cell carcinoma. C. Cervix, 1 o'clock, biopsy: -- Squamous mucosa with invasive squamous cell carcinoma, moderately differentiated. D. Cervix, 6 o'clock, biopsy: -- Necrotic tissue and fragments of invasive squamous cell carcinoma, moderately differentiated. E. Cervix, 9 o'clock, biopsy: -- Squamous mucosa with invasive squamous cell carcinoma, moderately differentiated. Description A-E. A microscopic examination was performed. Antibody Result in this case Application in this case p16 part E Positive Detects HPV-driven high-grade dysplasia p40 parts A and B Positive Sensitive and specific marker of squamous differentiation Special Procedure Antibody Result in this case Application in this case High-risk HPVish Positive Detects high-risk HPV genomic material Result: Antibody Clone Block CPS PD-L1 (SP263) E1 70% Final Diagnosis 06/08/2024 A. Cervix, SurePath Pap test: Adequacy: Satisfactory for evaluation; no transformation zone component identified. Interpretation: Epithelial cell abnormality: High-grade squamous intraepithelial lesion (HSIL, [facility]). The process may involve the endocervix. PET scan was done on 08/10/2024 which revealed intensely hypermetabolic cervical mass consistent with the biopsy-proven , with a concern for the left ureteral involvement and hypermetabolic shelby metastasis in the pelvic sidewalls. Patient was seen by gynecology oncologist on 08/02/2023 and based on stage she is not candidate forsurgery and the recommendation was chemoradiation for locally advanced disease. She is complaining of generalized weakness lower abdominal pain and occasional episode bleeding. She currently she is smoking 5 cigarettes per day. She used to smoke half pack per day for over 20 years. She drinks alcohol socially. HISTORY OF PRESENT ILLNESS: Luanne Farrell is a 44 year old female with a history as outlined above. Currently here for f/u visit today prior to week 2 Cisplatin. She reports that she tolerated the last cycle of cisplatin and keytruda fairly well. No fever, chills or night sweats. No unusual headache. Denies chest pain, palpitation or shortness of breath. Mild cough at times. + sensation of frequent urination + pain in pelvic area and right thigh. + constipation + mild sore mouth. She is eating ok. No noted peripheral neuropathy. Past Medical History: Diagnosis Date Squamous cell carcinoma of cervix (HCC) 07/31/2024 Tobacco use Past Surgical History: Procedure Laterality Date INSER TUNN ACC DEV;5 YRS/OLDER Right 09/08/2024 INSERT TUNNELED CENTRAL VENOUS ACCESS WITH SUBQ PORT performed by Armond Drew MD at [facility] REMOVAL OF KNEE CYST ([facility]) Social History Socioeconomic History Marital status: Spouse name: Not on file Number of children: 2 Years of education: Not on file Highest education level: Not on file Occupational History Not on file Tobacco Use Smoking status: Every Day Current packs/day: 0.50 Average packs/day: 0.5 packs/day for 7.0 years (3.5 ttl pk-yrs) Types: Cigarettes Smokeless tobacco: Never Tobacco comments: Reporting 10 daily Substance and Sexual Activity Alcohol use: Yes Comment: social Drug use: No Sexual activity: Not Currently Partners: Male Other Topics Concern Not on file Social History Narrative Not on file Social Needs Financial Resource Strain: Low Risk (06/07/2024) Financial Resource Strain Do you have any trouble paying for your medications, or do you think you might in the future? (Adult - for ages 18 years and over): No Does your family have trouble paying for medicine? (Household - for ages 0-17 years): Not on file Food Insecurity: No Food Insecurity (06/07/2024) Food Insecurity Worried About Running Out of Food in the Last Year: Never true Ran Out of Food in the Last Year: Never true Do you need food for this week? (Adult - for ages 18 years and over): No Transportation Needs: No Transportation Needs (06/07/2024) Transportation Needs Do you have trouble getting a ride to medical visits or work? (Adult - for ages 18 years and over):Not on file Does your family have a hard time getting a ride to doctors visits? (Household - for ages 0-17 years): Not on file Has lack of transportation kept you from medical appointments, meetings, work, or from getting things needed for daily living? Check all that apply. (Adult - for ages 18 years and over): No Do you (or your family) have trouble finding or paying for a ride (transportation)? (Household - for ages 0-17 years): Not on file Social Connections: Socially Integrated (06/07/2024) Social Connections How often do you feel lonely or isolated from those around you? (Adult - for ages 18 years and over): Rarely Housing Stability: Low Risk (06/07/2024) Housing Stability Do you currently live in a halfway or have no steady place to sleep at night? (Adult - for ages 18 years and over): No Do you think you are at risk of becoming homeless? (Adult - for ages 18 years and over): Not on file Does your family worry about paying for your home or becoming homeless? (Household - for ages 0-17 years): Not on file Are you homeless or worried that you might be in the future? (Adult - for ages 18 years and over): No Are you (or your family) homeless or worried that you might be in the future? (Household - for ages0-17 years): Not on file Review of patient's allergies indicates: No Known Allergies Current Outpatient Medications Medication Sig Dispense Refill traMADol HCl 50 MG Oral Tablet (Ultram) Take 1 Tablet by mouth every 6 hours as needed for Pain, Moderate. (Patient not taking: Reported on 09/08/2024) 30 Tablet 0 Ibuprofen 600 MG Oral Tablet (Motrin) Take 1 tablet every 6 hours as needed for pain. 30 Tablet 3 Polyethylene Glycol 3350 17 GM/SCOOP Oral Powder (MiraLax) Take 17 g by mouth daily as needed for Constipation. One heaping tablespoon in 8 ounces of water or juice; for severe constipation. 510 g 3 Acetaminophen 500 MG Oral Capsule Take 1 Capsule by mouth every 4 hours as needed. Prochlorperazine Maleate 10 MG Oral Tablet (Compazine) Take 1 Tablet by mouth every 6 hours as needed for Nausea. 30 Tablet 0 Ondansetron HCl 8 MG Oral Tablet (Zofran) Take 1 Tablet by mouth every 8 hours as needed for Nausea. 39 Tablet 0 Lidocaine-Prilocaine 2.5-2.5 % External Cream (Emla) APPLY TO SKIN OVER MEDIPORT & COVER 1HR PRIOR TO ACCESSING. 30 g 0 oxyCODONE HCl 5 MG Oral Tablet (Oxy IR) Take 1 Tablet by mouth every 4 hours as needed for Pain, Severe. 30 Tablet 0 Senna 8.6 MG Oral Tablet Take 1 Tablet by mouth at bedtime. 30 Tablet 0 No current facility-administered medications for this visit. REVIEW OF SYSTEMS: See HPI - otherwise negative OBJECTIVE: Filed Vitals: 09/13/24 0856 BP: 116/75 Pulse: 102 Resp: 18 Temp: 37 C (98.6 F) TempSrc: Tympanic SpO2: 93% Weight: 57.6 kg (127 lb) Wt Readings from Last 5 Encounters: 09/13/24 57.6 kg (127 lb) 09/08/24 56.7 kg (125 lb) 09/06/24 57 kg (125 lb 9.6 oz) 08/28/24 58.2 kg (128 lb 4.8 oz) 07/25/24 60.8 kg (134 lb) PHYSICAL EXAM: ECOG: Performance Status 0 = 100% Normal Activity General Appearance: thin appearing patient in pain, standing, moving around often HEENT: Normal - No oral or pharyngeal masses, ulceration or thrush noted, no sinus tenderness Lymph Nodes: Normal - No palpable lymph nodes in the neck or supraclavicular areas Lungs/Thorax: Normal - Clear to auscultation Heart: Normal - Regular rate and rhythm, normal S1, S2, no appreciable murmurs, rubs, gallops Pulses/Extremities: Normal - 2+ throughout and symmetrical, no edema Abdomen: Normal - Soft, nontender, bowel sounds present, no appreciable hepatosplenomegaly, no palpable masses Musculoskeletal: Normal - No pain on palpation over bony prominence, no joint or bony deformity Neurologic: Normal - Grossly intact LABS: Results for orders placed or performed in visit on 09/12/24 COMPREHENSIVE METABOLIC PANEL Result Value Ref Range BUN 13 6 - 20 mg/dL CREATININE 1.3 (H) 0.5 - 1.0 mg/dL EGFR 55 (L) >=60 mL/min SODIUM 130 (L) 135 - 146 mmol/L POTASSIUM 4.4 3.5 - 5.1 mmol/L CHLORIDE 91 (L) 98 - 107 mmol/L CO2 27 22 - 32 mmol/L ANION GAP 12 7 - 15 mmol/L GLUCOSE 104 70 - 120 mg/dL Albumin 3.6 (L) 3.8 - 5.0 g/dL AST 12 10 - 35 U/L Alkaline Phosphatase 73 35 - 130 U/L Bilirubin, Total 0.2 <=1.2 mg/dL CALCIUM 9.1 8.4 - 10.2 mg/dL Protein 6.3 6.0 - 8.3 g/dL ALT 9 (L) 10 - 35 U/L MAGNESIUM Result Value Ref Range Magnesium 2.0 1.5 - 2.6 mg/dL TSH WITH FREE T4 IF INDICATED Result Value Ref Range TSH 0.65 0.27 - 4.20 uIU/mL BETA-HCG, QUANTITATIVE Result Value Ref Range Beta-HCG, Quantitative 6.2 (H) <=1.0 mIU/mL CBC Result Value Ref Range WBC 19.74 (H) 4.00 - 10.80 K/uL RBC 3.66 3.85 - 5.15 M/uL HGB 11.1 (L) 12.0 - 15.3 g/dL HCT 35.0 (L) 36.0 - 45.2 % MCV 95.6 81.5 - 97.5 fL MCH 30.3 27.0 - 34.0 pg MCHC 31.7 32.0 - 36.0 g/dL RDW 12.9 11.5 - 15.5 % PLT 390 140 - 400 K/uL MPV 11.2 6.6 - 11.1 fL nRBCs 0 <=0 /100 WBCs DIFFERENTIAL, AUTOMATED Result Value Ref Range WBC 19.74 (H) 4.00 - 10.80 K/uL Neutrophils % 80.7 (H) 40.0 - 75.0 % Lymphocytes % 4.3 (L) 18.0 - 42.0 % Monocytes % 8.7 1.0 - 11.0 % Eosinophils % 3.5 0.0 - 6.0 % Basophils % 0.6 0.0 - 2.0 % Immature Granulocytes % 2.2 (H) 0.0 - 2.0 % Absolute Neutrophils 15.94 (H) 1.80 - 7.70 K/uL Absolute Lymphocytes 0.85 (L) 1.00 - 4.80 K/ul Absolute Monocytes 1.71 (H) 0.00 - 1.10 K/uL Absolute Eosinophils 0.69 0.00 - 0.70 K/uL Absolute Basophils 0.12 0.00 - 0.20 K/uL Absolute Immature Granulocytes 0.43 (H) 0.00 - 0.20 K/uL ASSESSMENT/ PLAN: Cervical cancer Frequent urination Pain Constipation associated with pain medication Hyponatremia Mild elevation of kidney function -proceed with week 2 Cisplatin, she will get fluids today and on Wednesday 1 LNS -Hydrate well -start Azo per palliative care + Dexamethasone 4 mg po daily x 5 days -UA with culture pending -RTC one week with lab cbc, cmp, mag, hcg VIVEK Arvizu documented in this encounter Nursing Notes * Lisbet Jang LPN - 09/13/2024 8:56 AM EST Patient identifed by name and birthdate Do you have any concerns about pain management for today's visit? YES Living Will or Advance Directive for Health Care as noted on the problem list. [facility] is a way you can talk to your provider on line through e-mail. Would you like to sign up? I can activate it for you? NO Filed Vitals: 09/13/24 0856 BP: 116/75 Pulse: 102 Resp: 18 Temp: 37 C (98.6 F) TempSrc: Tympanic SpO2: 93% Weight: 57.6 kg (127 lb) Patient was instructed to not get up on the exam table/exam chair until directed and assisted by their provider; patient is to remain seated in the chair/ wheelchair/ exam table/ exam chair for fall prevention and safety reasons. Patient is aware to have assistance to step down off exam table/exam chair with personnel. Patient voiced full comprehension of instructions. Pt is having severe pain in lower groin and back. Right thigh is also bothering her. Patient is visibly in pain. documented in this encounter Plan of Treatment Upcoming Encounters Date Type Department Care Team (Late st Contact Info) Description 09/14/2024 3:00 PM EST Hem/Onc Treatment Hematology/Oncology [place], [address] [place] [phone] Nori, Chair 4 Hem Onc [address] [place] [address] 09/15/2024 9:45 AM EST Scheduled Telephone Palliative Medicine, [address] [place] [address] [place], Nurse Palliative Medicine [address] [address] 09/18/2024 3:00 PM EST Hem/Onc Treatment Hematology/Oncology Treatment, [address] [place] [phone] Nori, Chair 5 Hem Onc [address] [place] [address] 09/19/2024 9:30 AM EST Laboratory Laboratory [address] [place] [phone] [place] [address] 09/20/2024 9:00 AM EST Office Visit Hematology/Oncology [facility] Nori [address] [place] [phone] Angela Carranza CRNP [address] [facility] [place] [address] 09/20/2024 9:30 AM EST Hem/Onc Treatment Hematology/Oncology Treatment, [place] [address] [facility], [place] [phone] [place], Chair 2 Hem Onc [address] [place] [address] 09/20/2024 9:30 AM EST Office Visit Palliative Medicine [facility] [place] [address], [place] [phone] Kaye Augustine MD [address] [facility] [place] [address] 09/26/2024 9:30 AM EST Laboratory Laboratory [address] [place] [phone] [place] [address] 09/27/2024 9:30 AM EST Office Visit Hematology/Oncology [address] [place] [phone] Chitra Bass MD [address] [place] [address] 09/27/2024 10:00 AM EST Hem/Onc Treatment Hematology/Oncology Treatment, [place] [address] [facility], [place] [phone] 10/03/2024 9:30 AM EDT Laboratory Laboratory [address] [place] [phone] [place] [address] 10/04/2024 9:30 AM EDT Hem/Onc Treatment Hematology/Oncology Treatment[address], [place] [address] Pending Results Name Type Priority Associated Diagnoses Date /Time CULTURE, URINE, QUANTITATIVE Lab STAT Urinary frequency 09/13/2024 1:00 PM EST Health Maintenance Due Date Last Done [...] this encounter Medical Devices Implanted Type Area Tiler Device Identifier Shelf Expiration Date Model / Serial / Lot Power Port 8fr Sngl Lumen Plas - [id number] Implanted:Qty : 1 on 09/08/2024 by Armond Drew MD at [facility] Right: Chest CR BARD : PERIPHERAL VASCULAR [id number] 10/23/2025 [id number] / / [id number] documented as of this encounter Procedures Procedure Name Priority Date/Time Associated Diagnosis Comments URINALYSIS, REFLEX TO CULTURE STAT 09/13/2024 1:00 PM EST Urinary frequency URINALYSIS, REFLEX TO CULTURE (CUP ONLY) STAT 09/13/2024 1:00 PM EST Urinary frequency URINALYSIS, REFLEX TO CULTURE (NOT FOR NEUTROPENIC PATIENTS) STAT 09/13/2024 1:00 PM EST Urinary frequency documented in this encounter Results * (ABNORMAL) URINALYSIS, REFLEX TO CULTURE (09/13/2024 1:00 PM EST) Color, Urine Light Yellow Light Yellow, Yellow, Dark Yellow 09/13/2024 1:34 PM [facility] 56 Clarity, Urine Slightly Cloudy(A) Clear 09/13/2024 1:34 PM EST [facility] 56 Glucose, Urine Negative Negative mg/dL 09/13/2024 1:34 PM EST [facility] 56 Bilirubin, Urine Negative Negative 09/13/2024 1:34 PM EST [facility] 56 Ketone, Urine Negative Negative mg/dL 09/13/2024 1:34 PM [facility] 56 Specific [place], Urine 1.010 1.003 - 1.030 09/13/2024 1:34 PM EST [facility] 56 Blood, Urine Moderate(A) Negative 09/13/2024 1:34 PM [facility] 56 pH, Urine 6.5 5.0 - 7.5 Units 09/13/2024 1:34 PM [facility] 56 Protein, Urine Negative Negative mg/dL 09/13/2024 1:34 PM [facility] 56 Urobilinogen, Urine 1.0 0.2, 1.0 mg/dL 09/13/2024 1:34 PM [facility] 56 Nitrite, Urine Negative Negative 09/13/2024 1:34 PM [facility] 56 Esterase, Urine Moderate(A) Negative 09/13/2024 1:34 PM [facility] 56 RBC, Urine 0-2 0 - 2 /HPF 09/13/2024 1:34 PM [facility] 56 WBC, Urine 20-29(A) 0 - 2 /HPF 09/13/2024 1:34 PM [facility] 56 Bacteria, Urine 51-100(A) 0 - 25 /HPF 09/13/2024 1:34 PM [facility] 56 Squamous Epithelial Cells, Urine Many(A) None /HPF 09/13/2024 1:34 PM [facility] 56-02 Culture, Urine 09/13/2024 1:34 PM EST [facility] 56-02 Comment:Quantitative urine c ulture to be performed Urine Urine specimen obtained by clean catch procedure / Unknown Non-blood Collection / Unknown 09/13/2024 1:00 PM EST 09/13/2024 1:20 PM EST Angela DOYLE LAB URINE ORDERABLES Arlyn l Result [facility] [address] [place] [address] * URINALYSIS, REFLEX TO CULTURE (CUP ONLY) (09/13/2024 1:00 PM EST) Urinalysis, Reflex to Culture Specimen Specimen collected and received 09/13/2024 3:01 PM EST [facility] 56- Urine Urine specimen obtained by clean catch procedure / Unknown Non-blood Collection / Unknown 09/13/2024 1:00 PM EST 09/13/2024 1:20 PM EST Angela DOYLE LAB URINE ORDERABLES Arlyn l Result [facility] 56- [address] [place] [address] documented in this encounter Visit Diagnoses Diagnosis Squamous cell carcinoma of cervix (HCC)- Primary Malignant neoplasm of cervix uteri, unspecified site Urinary frequency documented in this encounter
--- OUTSIDE RECORDS SUMMARY | 2024-09-19 23:23 | External Medical Summary ---
Author Name Unknown Address Unknown Organization K01:LABORATORY [facility] - [address] [facility] [id number] Laboratory Report Ordering Provider Test Date Status TIRSO FELTON 09/12/2024 09:58:09 Final Observation Date Value Abnormality Reference (Units ) Status SYNC LEUKOCYTES IN BLOOD BY AUTOMATED COUNT 09/12/2024 09:58:09 19.74 Above high normal 4.00-10.80 (K/uL) Final Segs 09/12/2024 09:58:09 80.7 Above high normal 40.0-75.0 (%) Final Lymphs % 09/12/2024 09:58:09 4.3 Below low normal 18.0-42.0 (%) Final Monos 09/12/2024 09:58:09 8.7 1.0-11.0 (%) Final Eosinophils 09/12/2024 09:58:09 3.5 0.0-6.0 (%) Final Basos 09/12/2024 09:58:09 0.6 0.0-2.0 (%) Final Immature Granulocyte, Percent 09/12/2024 09:58:09 2.2 Above high normal 0.0-2.0 (%) Final Absolute Segs 09/12/2024 09:58:09 15.94 Above high normal 1.80-7.70 (K/uL) Final Lymphs, absolute 09/12/2024 09:58:09 0.85 Below low normal 1.00-4.80 (K/ul) Final Monos, Abs 09/12/2024 09:58:09 1.71 Above high normal 0.00-1.10 (K/uL) Final Eos, Abs 09/12/2024 09:58:09 0.69 0.00-0.70 (K/uL) Final Basos, Abs 09/12/2024 09:58:09 0.12 0.00-0.20 (K/uL) Final Immature Granulocytes, Number 09/12/2024 09:58:09 0.43 Above high normal 0.00-0.20 (K/uL) Final Performing Location LABORATORY [facility] - [address] [facility] [address]
--- OUTSIDE RECORDS SUMMARY | 2024-09-19 23:23 | External Medical Summary | Summary of Care ---
Author Name Unknown Organization [facility] Address [address] [place] [address] Phone [phone] Care Team Providers Care English Professor Name Role Phone Unavailable Primary Care Provider Unavailabl e Reason for Visit * Reason Onset Date Comments Palliative Care Follow-up 09/11/2024 Encounter Details Date Type Department Care Team (Late st Contact Info) Description 09/11/2024 9:00 AM EST Scheduled Telephone Palliative Medicine, [address] 5th [place] [address] [place], Nurse Palliative Medicine [address] [phone] Allergies No known active allergiesdocumented as of this encounter (statuses as of 09/11/2024) Medications traMADol HCl 50 MG Oral Tablet [...] as of this encounter (statuses as of 09/11/2024) Active Problems Problem Noted Date Diagnosed Date Encounter for antineoplastic chemotherapy 2024 Squamous cell carcinoma of cervix 07/31/2024 Tobacco use documented as of this encounter (statuses as of 09/11/2024) Resolved Problems Problem Noted Date Diagnosed Date Resolved Date Encounter for supervision of other normal 01/31/2002 04/26/2002 Overview (11/26/2015): ICD-10 update of inactive term documented as of this encounter (statuses as of 09/11/2024) Social History Tobacco Use Types Packs/Day Years [...] Telephone Encounter - Emi Eugene LPN - 09/11/2024 11:00 AM EST Palliative f/u phone call Seen 09/06: ASSESSMENT/PLAN: Luanne Farrell is a/an 44 year old female referred for consultation to Palliative Medicine with the primary diagnosis of: Cervical cancer, locally advanced disease, starting chemo/immunotherapy and radiation therapy for 5weeks Cancer related pain Opioid induced constipation Retained functional status Goals of care - start tx Recommendations: At this time, she is eager to start tx For pain, will start with Oxycodone 5mg every 4 hours as needed. She can keep note of how often sheuses it and let us know. STOP ibuprofen Can use Tylenol 500mg x 2 tablets THREE times a day I have reviewed the patients controlled substance dispensing history in the Prescription Drug Monitoring Program in compliance with the [facility] regulations before prescribing a controlled substance. Controlled substance agreement reviewed and completed, signed by myself and patient. Copy given to patient and kept in office records. For bowels, monitor after chemo. Use Miralax daily as needed. Added Senna 1-2 tab at night Does not need SW/HH/ referral Follow up in 1-2 weeks, nurse call in 1 weeks. Pt is possibly able to do video visits. Next visit with me. Spoke with patient States her pain is doing "okay" Taking her oxycodone consistently every 4 hours even through the night Taking tylenol 500mg TID-states she is trying not to take tylenol too much Still rating her pain 7/10 Scheduled tbs in treatment room at on Wednesday 09/13 Please advise if any changes need made before that documented in this encounter Plan of Treatment Upcoming Encounters Date Type Department Care Team (Late st Contact Info) Description 09/12/2024 10:00 AM EST Laboratory Laboratory [address] [place] [address] [place] [address] 09/13/2024 9:00 AM EST Office Visit Hematology/Oncology [facility] [address] [place] [phone] Angela Carranza CRNP [address] [place], [place] [phone] 09/13/2024 9:30 AM EST Hem/Onc Treatment Hematology/[facility], [place] [facility] [phone] Nori, Chair 8 Hem Onc [facility] 200 [facility] [place] [address] 09/13/2024 9:30 AM EST Office Visit Palliative Medicine [facility] [place] 200 [facility] [place] [phone] Kaye Augustine MD 400 [facility] [place] [address] 09/19/2024 9:30 AM EST Laboratory Laboratory [address] [place] [phone] [place] [address] 09/20/2024 9:30 AM EST Hem/Onc Treatment Hematology/Oncology Treatment, [place] 200 [facility] [place], [place] [phone] Nori, Chair 2 Hem Onc [facility] 200 [facility] [place] [address] 09/26/2024 9:30 AM EST Laboratory Laboratory [address] [place] [address] [place] [address] 09/27/2024 9:30 AM EST Office Visit Hematology/Oncology [facility] 200 [facility] [place] [phone] Chitra Bass MD 200 [facility] [place] [address] 09/27/2024 10:00 AM EST [facility] 200 [facility] [place] [address] 10/03/2024 9:30 AM EDT Laboratory Laboratory [address] [place] [address] [place], [address] [place] [address] 10/04/2024 9:30 AM EDT Hem[facility] 200 [facility] [place] [phone] Health Maintenance Due Date Last Done Comments [...] this encounter Medical Devices Implanted Type Area Border Police Device Identifier Shelf Expiration Date Model / Serial / Lot Power Port 8fr Sngl Lumen Plas - [id number] Implanted:Qty : 1 on 09/08/2024 by Armond Drew MD at OR [facility] Right: Chest CR BARD : PERIPHERAL VASCULAR [id number] 10/23/2025 [id number] / / [id number] documented as of this encounter
--- OUTSIDE RECORDS SUMMARY | 2024-09-19 23:23 | External Medical Summary | Summary of Care ---
Author Name Unknown Organization [facility] Address [address] [place] [address] Phone [phone] Care Team Providers Care Hvac Designer Name Role Phone Unavailable Primary Care Provider Unavailabl e Reason for Visit * Reason Onset Date Comments Order Request 09/13/2024 Encounter Details Date Type Department Care Team (Late st Contact Info) Description 09/13/2024 Telephone Hematology/Oncology [facility] 200 [facility] [place] [address] Chitra Bass MD 200 [place] [address] Order Request Allergies No known active allergiesdocumented [...] Notes * Telephone Encounter - Gary Long, GARRY - 09/13/2024 10:18 AM EST Angela- please place alteration "dose reduce Cisplatin today 25% and give 1L NSS over 2 HR on 09/15" documented in this encounter Plan of Treatment Upcoming Encounters Date Type Department Care Team (Late st Contact Info) Description 09/15/2024 9:45 AM EST Scheduled Telephone Palliative Medicine, [facility] 400 [facility] 5th Floor [place] [address] [place], Nurse Palliative Medicine [address] 400 [facility] [address] 09/19/2024 9:30 AM EST Laboratory Laboratory [address] [place] [phone] [address] [place] [address] 09/20/2024 9:30 AM EST Hem/Onc Treatment Hematology/Oncology Treatment, [address] [phone] Nori, Chair 2 Hem Onc [address] [place] [address] 09/20/2024 9:30 AM EST Office Visit Palliative Medicine [facility] [place] [address] [address] Kaye Augustine MD 400 [place] [address] 09/26/2024 9:30 AM EST Laboratory Laboratory [address] [place] [phone] [place] [address] 09/27/2024 9:30 AM EST Office Visit Hematology/Oncology [facility] 200 [facility] [place] [phone] Chitra Bass MD 200 [facility] [place] [address] 09/27/2024 10:00 AM EST Hem/Onc Treatment Hematology/Oncology Treatment, [place] [facility] [phone] 10/03/2024 9:30 AM EDT Laboratory Laboratory [address] [place] [address] [address] [place] [address] 10/04/2024 9:30 AM EDT Hem/Onc Treatment Hematology/Oncology Treatment, [place] [facility] [phone] Health Maintenance Due Date Last Done Comments [...] this encounter Medical Devices Implanted Type Area Consulting It Architect Device Identifier Shelf Expiration Date Model / Serial / Lot Power Port 8fr Sngl Lumen Plas - [id number] Implanted:Qty : 1 on 09/08/2024 by Armond Drew MD at OR [facility] Right: Chest CR BARD : PERIPHERAL VASCULAR [id number] 10/23/2025 [id number] / / [id number] documented as of this encounter
--- OUTSIDE RECORDS SUMMARY | 2024-09-19 23:23 | External Medical Summary | Summary of Care ---
Author Name Unknown Organization [facility] Address [address] [place] [address] Phone [phone] Care Team Providers Care Rental Manager Name Role Phone Unavailable Primary Care Provider Unavailabl e Reason for Visit * Reason Onset Date Comments Order Request 09/13/2024 Encounter Details Date Type Department Care Team (Late st Contact Info) Description 09/13/2024 Telephone Hematology/Oncology [facility] [place] 200 [facility] [place] [phone] Chitra Bass MD 200 [place] [address] Order Request Allergies No known active allergiesdocumented [...] Telephone Encounter - Malorie Owen RN - 09/14/2024 7:28 AM EST Orders were received. * Telephone Encounter - Gary Long RN - 09/13/2024 10:18 AM EST Angela- please place alteration "dose reduce Cisplatin today 25% and give 1L NSS over 2 HR on 09/15" documented in this encounter Plan of Treatment Upcoming Encounters Date Type Department Care Team (Late st Contact Info) Description 09/14/2024 3:00 PM EST Hem/Onc Treatment Hematology/Oncology Treatment, [address] [phone] Nori, Chair 4 Hem Onc [address] [place] [address] 09/15/2024 9:45 AM EST Scheduled Telephone Palliative Medicine, [address] 5th Floor [place] [address] [place], Nurse Palliative Medicine [address] [address] 09/18/2024 3:00 PM EST Hem/Onc Treatment Hematology/Oncology Treatment, [address] [phone] Nori, Chair 5 Hem [facility] 200 [facility] [place] [address] 09/19/2024 9:30 AM EST Laboratory Laboratory [address] [place] [address] [place] [address] 09/20/2024 9:00 AM EST Office Visit Hematology/Oncology [facility] [address] [place] [phone] Angela Carranza CRNP 400 [place], [place] [phone] 09/20/2024 9:30 AM EST Hem/Onc Treatment Hematology/Oncology [address], [place] [address] Nori, Chair 2 Hem Onc [address] [place] [phone] 09/20/2024 9:30 AM EST Office Visit Palliative Medicine [facility] [place] 200 [facility], [place] [address] Kaye Augustine MD 400 [place] [address] 09/26/2024 9:30 AM EST Laboratory Laboratory [address] [place] [address] [place] [address] 09/27/2024 9:30 AM EST Office Visit Hematology/Oncology [facility] [place] 200 [facility] [place] [phone] Chitra Bass MD [address] [place] [address] 09/27/2024 10:00 AM EST [facility] 200 [facility] [place] [address] 10/03/2024 9:30 AM EDT Laboratory Laboratory [address] [place] [phone] [place], [address] [place] [address] 10/04/2024 9:30 AM EDT Hem/Onc Treatment Hematology/Oncology Treatment, [place] 200 [facility] [place] [phone] Health Maintenance Due Date Last Done Comments [...] this encounter Medical Devices Implanted Type Area Pollution Control Chemist Device Identifier Shelf Expiration Date Model / Serial / Lot Power Port 8fr Sngl Lumen Plas - [id number] Implanted:Qty : 1 on 09/08/2024 by Armond Drew MD at [facility] Right: Chest CR BARD : PERIPHERAL VASCULAR [id number] 10/23/2025 [id number] / / [id number] documented as of this encounter
--- OUTSIDE RECORDS SUMMARY | 2024-09-19 23:23 | External Medical Summary ---
Author Name Unknown Address Unknown Organization K09:[facility] [place] [address] Laboratory Report Ordering Provider Test Date Status RAFAELA DAVEY 09/13/2024 13:00:00 Final Observation Date Value Abnormality Reference (Units ) Status Color of Urine by Auto 09/13/2024 13:00:00 Light Yellow Light Yellow, Yellow, Dark Yellow Final Clarity, Urine 09/13/2024 13:00:00 Slightly Cloudy Abnormal Clear Final Glucose [Mass/volume] in Urine by Automated test strip 09/13/2024 13:00:00 Negative Negative (mg/dL) Final Bilirubin.total [Presence] in Urine by Automated test strip 09/13/2024 13:00:00 Negative Negative Final Ketones [Mass/volume] in Urine by Automated test strip 09/13/2024 13:00:00 Negative Negative (mg/dL) Final Specific gravity, Urine 09/13/2024 13:00:00 1.010 1.003-1.030 Final Hemoglobin [Presence] in Urine by Automated test strip 09/13/2024 13:00:00 Moderate Abnormal Negative Final pH, Urine 09/13/2024 13:00:00 6.5 5.0-7.5 (Units) Final Protein [Mass/volume] in Urine by Automated test strip 09/13/2024 13:00:00 Negative Negative (mg/dL) Final Urobilinogen [Mass/volume] in Urine by Automated test strip 09/13/2024 13:00:00 1.0 0.2, 1.0 (mg/dL) Final Nitrite [Presence] in Urine by Automated test strip 09/13/2024 13:00:00 Negative Negative Final Leukocyte esterase [Presence] in Urine by Automated test strip 09/13/2024 13:00:00 Moderate Abnormal Negative Final RBC, Urine 09/13/2024 13:00:00 0-2 0-2 (/HPF) Final WBC, Urine 09/13/2024 13:00:00 20-29 Abnormal 0-2 (/HPF) Final Bacteria [#/area] in Urine sediment by Microscopy high power field 09/13/2024 13:00:00 51-100 Abnormal 0-25 (/HPF) Final Epithelial cells.squamous [#/area] in Urine sediment by Microscopy high power field 09/13/2024 13:00:00 Many Abnormal None (/HPF) Final CULTURE, URINE - [facility] 09/13/2024 13:00:00 Final Quantitative urine culture t o be performed Performing Location [facility] [address] [place] [address]
--- OUTSIDE RECORDS SUMMARY | 2024-09-19 23:23 | External Medical Summary | Summary of Care ---
Author Name Unknown Organization [facility] Address [address] [place] [address] Phone [phone] Care Team Providers Care Waste Disposal Attendant Name Role Phone Unavailable Primary Care Provider Unavailabl e Encounter Details Date Type Department Care Team (Late st Contact Info) Description 09/13/2024 Orders Only Hematology/Oncology [facility] [place] 200 [place] [phone] Chitra Bass MD 200 [place] [address] Allergies No known active allergiesdocumented as of [...] 9:45 AM EST Scheduled Telephone Palliative Medicine, [address] 5th Floor [place] [address] [place], Nurse Palliative Medicine [facility] 5th 400 [facility] [address] 09/19/2024 9:30 AM EST Laboratory Laboratory [address] [place] [phone] [place] [address] 09/20/2024 9:30 AM EST Hem/Onc Treatment Hematology/Oncology Treatment, [address], [place] [address] Nori, Chair 2 Hem Onc [address] [place] [address] 09/20/2024 9:30 AM EST Office Visit Palliative Medicine [address] [address] Kaye Augustine MD 400 [facility] [place] [address] 09/26/2024 9:30 AM EST Laboratory Laboratory [address] [place] [phone] [place] [address] 09/27/2024 9:30 AM EST Office Visit Hematology/Oncology [address] [place] [phone] Chitra Bass MD 200 [facility] [place] [address] 09/27/2024 10:00 AM EST Hem/Onc Treatment Hematology/Oncology Treatment, [place] 200 [facility] [place] [address] 10/03/2024 9:30 AM EDT Laboratory Laboratory [address] [place] [address] [place], Lab [address] [place] [address] 10/04/2024 9:30 AM EDT Hem/Onc Treatment Hematology/Oncology Treatment, [place] [place] [phone] Health Maintenance Due Date Last Done Comments [...] this encounter Medical Devices Implanted Type Area Intervention Teacher Device Identifier Shelf Expiration Date Model / Serial / Lot Power Port 8fr Sngl Lumen Plas - [id number] Implanted:Qty : 1 on 09/08/2024 by Armond Drew MD at OR [facility] Right: Chest CR BARD : PERIPHERAL VASCULAR [id number] 10/23/2025 [id number] / / [id number] documented as of this encounter
--- OUTSIDE RECORDS SUMMARY | 2024-09-19 23:24 | External Medical Summary | Summary of Care ---
Author Name Unknown Organization [facility] Address [address] [place] [address] Phone [phone] Care Team Providers Care Salesperson Furs Name Role Phone Unavailable Primary Care Provider Unavailabl e Encounter Details Date Type Department Care Team (Late st Contact Info) Description 09/10/2024 Orders Only Hematology/Oncology [facility] [place] 200 [facility] [place] [phone] Chitra Bass MD 200 [facility] [place] [address] Allergies No known active allergiesdocumented as of this encounter (statuses as of 09/10/2024) Medications traMADol HCl 50 MG Oral Tablet [...] as of this encounter (statuses as of 09/10/2024) Active Problems Problem Noted Date Diagnosed Date Encounter for antineoplastic chemotherapy 2024 Squamous cell carcinoma of cervix 07/31/2024 Tobacco use documented as of this encounter (statuses as of 09/10/2024) Resolved Problems Problem Noted Date Diagnosed Date Resolved Date Encounter for supervision of other normal 01/31/2002 04/26/2002 Overview (11/26/2015): ICD-10 update of inactive term documented as of this encounter (statuses as of 09/10/2024) Social History Tobacco Use Types Packs/Day Years [...] 9:00 AM EST Scheduled Telephone Palliative Medicine, [facility] 400 [facility] 5th [place] [address] [place], Nurse Palliative Medicine [facility] 5th 400 [facility] [phone] 09/12/2024 10:00 AM EST Laboratory Laboratory [address] [place] [phone] [place] [address] 09/13/2024 9:00 AM EST Office Visit Hematology/Oncology [address] [phone] Angela Carranza CRNP 400 [place] [address] 09/13/2024 9:30 AM EST Hem/Onc Treatment Hematology/Oncology Treatment, [address], [place] [phone] Nori, Chair 8 Hem Onc [address] [address] 09/13/2024 9:30 AM EST Office Visit Palliative Medicine [facility] [address], [place] [phone] Kaye Augustine MD 400 [place] [address] 09/19/2024 9:30 AM EST Laboratory Laboratory [address] [place] [phone] [place] [address] 09/20/2024 9:30 AM EST Hem/Onc Treatment Hematology/Oncology Treatment [place] 200 [facility] [place] [phone] Nori, Chair 2 Hem Onc [address] [place] [address] 09/26/2024 9:30 AM EST Laboratory Laboratory [address] [place] [address] [place] [address] 09/27/2024 9:30 AM EST Office Visit Hematology/Oncology [facility] [place] 200 [facility] [place] [phone] Chitra Bass MD 200 [facility] [place] [address] 09/27/2024 10:00 AM EST Hem/Onc Treatment Hematology/Oncology Treatment [address] [place] [phone] 10/03/2024 9:30 AM EDT Laboratory Laboratory [address] [place] [address] [place] [address] 10/04/2024 9:30 AM EDT Hem/Onc Treatment Hematology/Oncology Treatment [place] 200 [facility] [place] [phone] Health Maintenance Due Date Last Done Comments [...] this encounter Medical Devices Implanted Type Area Horse Trader Device Identifier Shelf Expiration Date Model / Serial / Lot Power Port 8fr Sngl Lumen Plas - [id number] Implanted:Qty : 1 on 09/08/2024 by Armond Drew MD at OR [facility] Right: Chest CR BARD : PERIPHERAL VASCULAR [id number] 10/23/2025 [id number] / / [id number] documented as of this encounter
--- OUTSIDE RECORDS SUMMARY | 2024-09-19 23:24 | External Medical Summary | Summary of Care ---
Author Name Unknown Organization [facility] Address [address] [place] [address] Phone [phone] Care Team Providers Care Assembly Line Supervisor Name Role Phone Unavailable Primary Care Provider Unavailabl e Reason for Visit * Reason Comments Outpatient Testing Encounter Details Date Type Department Care Team (Late st Contact Info) Description 09/06/2024 8:20 AM EST Laboratory Laboratory Scenery [facility] [address] [place] [phone] [place], Lab Scenery [address] [place] [address] Squamous cell carcinoma of cervix (HCC) Allergies No known active allergiesdocumented as of this encounter (statuses as of 09/06/2024) Medications traMADol HCl 50 MG Oral Tablet (Ultram) Take 1 Tablet by mouth every 6 hours as needed for Pain, Moderate. 30 Tablet 5 Active Ibuprofen 600 MG Oral Tablet (Motrin)Indicat ions:Pelvic [...] mouth every 4 hours as needed. Active Prochlorperazin e Maleate 10 MG Oral Tablet (Compazine)Eleni cations:Squamou s cell carcinoma of cervix (HCC) Take 1 Tablet by mouth every 6 hours as needed for Nausea. 30 Tablet 5 Active Ondansetron HCl 8 MG Oral Tablet (Zofran)Indicat ions:Squamous cell carcinoma of cervix (HCC) Take 1 Tablet by mouth every 8 hours as needed for Nausea. 39 Tablet 5 Active Lidocaine-Prilo jannette 2.5-2.5 % External Cream (Emla)Indicatio ns:Squamous cell carcinoma of cervix (HCC) APPLY TO SKIN OVER MEDIPORT & COVER 1HR PRIOR TO ACCESSING. 30 g 5 Active documented as of this encounter (statuses as of 09/06/2024) Active Problems Problem Noted Date Diagnosed Date Encounter for antineoplastic chemotherapy 2024 Squamous cell carcinoma of cervix 07/31/2024 Tobacco use documented as of this encounter (statuses as of 09/06/2024) Resolved Problems Problem Noted Date Diagnosed Date Resolved Date Encounter for supervision of other normal 01/31/2002 04/26/2002 Overview (11/26/2015): ICD-10 update of inactive term documented as of this encounter (statuses as of 09/06/2024) Social History Tobacco Use Types Packs/Day Years [...] No 06/07/2024 Does the household have a [facility] medical [facility] source of income? (Household - for ages [...] Upcoming Encounters Date Type Department Care Team (Latest Contact Info) Description 09/06/2024 9:30 AM EST Hem/Onc Treatment Hematology/Oncolog y Treatment, [place] [address] [place] [phone] Nori, Chair 10 Hem Onc [facility] 200 [facility] [place] [address] Arrived 09/06/2024 11:00 AM EST Office Visit Palliative Medicine [facility] [place] [address] [place] [phone] Kaye Augustine MD [address] [place] [address] Arrived 09/08/2024 1:26 PM EST Hospital Encounter OR [facility], Operating Room, [facility] - 4th Floor [address] [place] [phone] Armond Drew MD [address] [place] [address] 09/08/2024 1:26 PM EST - 09/08/2024 2:18 PM EST Surgery OR [facility], Operating Room, [facility] - 4th Floor [address] [place] [phone] Armond Drew MD [address] [place] [address] INSERT TUNNELED CENTRAL VENOUS ACCESS WITH SUBQ PORT 09/12/2024 10:00 AM EST Laboratory Laboratory [address] [place] [phone] [place], [address] [place] [address] 09/13/2024 9:00 AM EST Office Visit Hematology/Oncolog y [facility] [place] 200 [facility] [place] [phone] Angela Carranza CRNP [address] [place] [address] 09/13/2024 9:30 AM EST Hem/Onc Treatment Hematology/Oncolog y Treatment, [place] [address] [place] [address] Nori, Chair 8 Hem Onc Scenery [address] [place] [address] Pending Results Name Type Priority Associated Diagnoses Date /Time BETA-HCG, QUANTITATIVE Lab STAT Squamous cell carcinoma of cervix (HCC) 09/06/2024 8:19 AM EST Scheduled Procedures Name Priority Associated Diagnoses Date/Ti me INSERT TUNNELED CENTRAL VENOUS ACCESS WITH SUBQ PORT Squamous cell carcinoma of cervix (HCC) 09/08/2024 1:26 PM EST Health Maintenance Due Date Last [...] documented as of this encounter Medical Devices Not on filedocumented as of this encounter Procedures Procedure Name Priority Date/Time Associated Diagnosis Comments DIFFERENTIAL, AUTOMATED STAT 09/06/2024 8:19 AM EST Squamous cell carcinoma of cervix (HCC) COMPREHENSIVE METABOLIC PANEL STAT 09/06/2024 8:19 AM EST Squamous cell carcinoma of cervix (HCC) CBC STAT 09/06/2024 8:19 AM EST Squamous cell carcinoma of cervix (HCC) CBC STAT 09/06/2024 8:19 AM EST Squamous cell carcinoma of cervix (HCC) DIFFERENTIAL, TECHNOLOGIST REVIEW Routine 09/06/2024 8:19 AM EST Squamous cell carcinoma of cervix (HCC) MAGNESIUM STAT 09/06/2024 8:19 AM EST Squamous cell carcinoma of cervix (HCC) HCG QUALITATIVE, URINE STAT 8:19 AM EST Squamous cell carcinoma of cervix (HCC) documented in this encounter Results * (ABNORMAL) DIFFERENTIAL, TECHNOLOGIST REVIEW (09/06/2024 8:19 AM EST) WBC 20.83(H) 4.00 - 10.80 K/uL 09/06/2024 8:55 AM EST [facility] [place] 56-02 Neutrophils % 60.0 40.0 - 75.0 % 09/06/2024 8:55 AM EST [facility] [place] 56-02 Lymphocytes % 21.0 18.0 - 42.0 % 09/06/2024 8:55 AM EST [facility] [place] 56-02 Monocytes % 5.0 1.0 - 11.0 % 09/06/2024 8:55 AM EST [facility] [place] 56-02 Eosinophils % 13.0(H) 0.0 - 6.0 % 09/06/2024 8:55 AM EST [facility] [place] 56-02 Basophils % 1.0 0.0 - 2.0 % 09/06/2024 8:55 AM EST [facility] [place] 56-02 Absolute Neutrophils 12.50(H) 1.80 - 7.70 K/uL 09/06/2024 8:55 AM EST [facility] [place] 56-02 Absolute Lymphocytes 4.37 1.00 - 4.80 K/uL 09/06/2024 8:55 AM EST LAB[facility]ORY [facility] 56-02 Absolute Monocytes 1.04 0.00 - 1.10 K/uL 09/06/2024 8:55 AM EST LAB[facility]ATORY [facility] 56-02 Absolute Eosinophils 2.71(H) 0.00 - 0.70 K/uL 09/06/2024 8:55 AM [facility] 56- Absolute Basophils 0.21(H) 0.00 - 0.20 K/uL 09/06/2024 8:55 AM [facility] 56- nRBCs 09/06/2024 8:55 AM [facility] 56- Reactive Lymphocytes Present(A ) None Seen 09/06/2024 8:55 AM [facility] 56- Blood Venous blood specimen / Unknown Venipuncture / Unknown 09/06/2024 8:19 AM EST 09/06/2024 8:19 AM EST Chitra Bass MD LAB BLOOD ORDERABLES Fin al Result [facility] 56 [address] [place] [address] * (ABNORMAL) HCG QUALITATIVE, URINE (09/06/2024 8:19 AM EST) HCG Qualitative, Urine Positive(A ) Negative 09/06/2024 8:43 AM [facility] 56 Comment:Results rechecked. Urine Urine specimen obtained by clean catch procedure / Unknown Non-blood Collection / Unknown 09/06/2024 8:19 AM EST 09/06/2024 8:19 AM EST Chitra Bass MD LAB URINE ORDERABLES Fin al Result [facility] 56 [address] [place] [address] * DIFFERENTIAL, AUTOMATED (09/06/2024 8:19 AM EST) Blood Venous blood specimen / Unknown Venipuncture / Unknown 09/06/2024 8:19 AM EST 09/06/2024 8:19 AM EST Chitra Bass MD LAB BLOOD ORDERABLES Fin al Result [facility] 56 [address] [place] [address] * (ABNORMAL) CBC (09/06/2024 8:19 AM EST) WBC 20.83(H) 4.00 - 10.80 K/uL 09/06/2024 8:55 AM EST [facility] 56- RBC 4.04 3.85 - 5.15 M/uL 09/06/2024 8:55 AM [facility] 56- HGB 12.4 12.0 - 15.3 g/dL 09/06/2024 8:55 AM [facility] 56- HCT 38.5 36.0 - 45.2 % 09/06/2024 8:55 AM [facility] 56- MCV 95.3 81.5 - 97.5 fL 09/06/2024 8:55 AM [facility] 56- MCH 30.7 27.0 - 34.0 pg 09/06/2024 8:55 AM [facility] 56- MCHC 32.2 32.0 - 36.0 g/dL 09/06/2024 8:55 AM [facility] 56- RDW 13.5 11.5 - 15.5 % 09/06/2024 8:55 AM [facility] 56- PLT 479(H) 140 - 400 K/uL 09/06/2024 8:55 AM [facility] 56- MPV 10.3 6.6 - 11.1 fL 09/06/2024 8:55 AM [facility] 56- Blood Venous blood specimen / Unknown Venipuncture / Unknown 09/06/2024 8:19 AM EST 09/06/2024 8:19 AM EST us Chitra Bass MD LAB BLOOD ORDERABLES Fin al Result [facility] 56- [address] [place], [place] [id number] * MAGNESIUM (09/06/2024 8:19 AM EST) Magnesium 2.1 1.5 - 2.6 mg/dL 09/06/2024 8:48 AM [facility] 56-02 Blood Venous blood specimen / Unknown Venipuncture / Unknown 09/06/2024 8:19 AM EST 09/06/2024 8:19 AM EST Chitra Bass MD LAB BLOOD ORDERABLES Fin al Result [facility] [address] [place] [address] * (ABNORMAL) COMPREHENSIVE METABOLIC PANEL (09/06/2024 8:19 AM EST) BUN 13 6 - 20 mg/dL 09/06/2024 8:48 AM [facility] CREATININE 1.2(H) 0.5 - 1.0 mg/dL 09/06/2024 8:48 AM [facility] 56 EGFR 57(L) >=60 mL/min 09/06/2024 8:48 AM [facility] Comment:eGFR is calculated b ased on the CKD-EPI 2020 equation. SODIUM 135 135 - 146 mmol/L 09/06/2024 8:48 AM [facility] 56 POTASSIUM 4.1 3.5 - 5.1 mmol/L 09/06/2024 8:48 AM [facility] 56- CHLORIDE 99 98 - 107 mmol/L 09/06/2024 8:48 AM [facility] 56 CO2 22 22 - 32 mmol/L 09/06/2024 8:48 AM [facility] 56 ANION GAP 14 7 - 15 mmol/L 09/06/2024 8:48 AM [facility] 56 GLUCOSE 96 70 - 120 mg/dL 09/06/2024 8:48 AM [facility] 56 Albumin 3.6(L) 3.8 - 5.0 g/dL 09/06/2024 8:48 AM [facility] 56 AST 13 10 - 35 U/L 09/06/2024 8:48 AM [facility] 56 Alkaline Phosphatase 94 35 - 130 U/L 09/06/2024 8:48 AM [facility] 56 Bilirubin, Total <0.2 <=1.2 mg/dL 09/06/2024 8:48 AM EST [facility] 56- CALCIUM 9.5 8.4 - 10.2 mg/dL 09/06/2024 8:48 AM [facility] 56- Protein 7.6 6.0 - 8.3 g/dL 09/06/2024 8:48 AM EST [facility] 56- ALT <5(L) 10 - 35 U/L 09/06/2024 8:48 AM [facility] 56 Blood Venous blood specimen / Unknown Venipuncture / Unknown 09/06/2024 8:19 AM EST 09/06/2024 8:19 AM EST Chitra Bass MD LAB BLOOD ORDERABLES Fin al Result [facility] [address] [place] [address] documented in this encounter Visit Diagnoses Diagnosis Squamous cell carcinoma of cervix (HCC) Malignant neoplasm of cervix uteri, unspecified site Squamous cell carcinoma of cervix (HCC) Malignant neoplasm of cervix uteri, unspecified site documented in this encounter
--- OUTSIDE RECORDS SUMMARY | 2024-09-19 23:24 | External Medical Summary | Summary of Care ---
Author Name Unknown Organization [facility] Address [address] [place] [address] Phone [phone] Care Team Providers Care Network Director Name Role Phone Unavailable Primary Care Provider Unavailabl e Encounter Details Date Type Department Care Team (Late st Contact Info) Description 09/10/2024 Orders Only Hematology/Oncology [facility] Nori [place] [address] [facility] [place] [phone] Chitra Bass MD [address] [facility] [place] [address] Allergies No known active allergiesdocumented as of [...] 9:00 AM EST Scheduled Telephone Palliative Medicine, [facility] 400 [facility] 5th [place] [address] [place], Nurse Palliative Medicine [facility] 5th 400 [facility] [id number] 09/12/2024 10:00 AM EST Laboratory Laboratory [address] [place] [phone] [place] [address] 09/13/2024 9:00 AM EST Office Visit Hematology/Oncology [address] [phone] Angela Carranza CRNP [address] [place] [address] 09/13/2024 9:30 AM EST Hem/Onc Treatment Hematology/Oncology Treatment, [address], [place] [phone] Nori, Chair 8 Hem Onc [address] [address] 09/13/2024 9:30 AM EST Office Visit Palliative Medicine [facility] [address], [place] [phone] Kaye Augustine MD [address] [place] [address] 09/19/2024 9:30 AM EST Laboratory Laboratory [address] [place] [phone] [place] [address] 09/20/2024 9:30 AM EST Hem/Onc Treatment Hematology/Oncology Treatment [place] [address] [facility] [place] [phone] Nori, Chair 2 Hem Onc [address] [place] [address] 09/26/2024 9:30 AM EST Laboratory Laboratory [address] [place] [phone] [place] [address] 09/27/2024 9:30 AM EST Office Visit Hematology/Oncology [facility] [place] [address] [facility] [place] [phone] Chitra Bass MD [address] [facility] [place] [address] 09/27/2024 10:00 AM EST Hem/Onc Treatment Hematology/Oncology Treatment [address] [place] [phone] 10/03/2024 9:30 AM EDT Laboratory Laboratory [address] [place] [phone] [place] [address] 10/04/2024 9:30 AM EDT Hem/Onc Treatment Hematology/Oncology Treatment [place] 200 [facility] [place] [phone] Health Maintenance Due Date Last Done Comments [...] this encounter Medical Devices Implanted Type Area Geography Instructor Device Identifier Shelf Expiration Date Model / Serial / Lot Power Port 8fr Sngl Lumen Plas - [id number] Implanted:Qty : 1 on 09/08/2024 by Armond Drew MD at OR [facility] Right: Chest CR BARD : PERIPHERAL VASCULAR [id number] 10/23/2025 [id number] / / [id number] documented as of this encounter
--- OUTSIDE RECORDS SUMMARY | 2024-09-19 23:24 | External Medical Summary | Summary of Care ---
Author Name Unknown Organization [facility] Address [address] [place] [address] Phone [phone] Care Team Providers Care Ingredient Scaler Name Role Phone Unavailable Primary Care Provider Unavailabl e Encounter Details Date Type Department Care Team (Late st Contact Info) Description 09/06/2024 Orders Only Hematology/Oncology [facility] Nori [place] 200 [facility] [place] [phone] Chitra Bass MD 200 [facility] [place] [address] Allergies No known active allergiesdocumented as of [...] No 06/07/2024 Does the household have a [facility] source of income? (Household - for ages [...] Care Team (Late st Contact Info) Description 09/08/2024 9:00 AM EST Hospital Encounter [place], Operating Room, [facility] - 4th Floor [address] [place] [address] [place] [phone] Armond Drew MD 400 [facility] [place] [address] 09/08/2024 9:00 AM EST - 09/08/2024 9:52 AM EST Surgery OR [place], Operating Room, [facility] - 4th Floor 400 [facility] [place] [phone] Armond Drew MD 400 [facility] [place] [address] INSERT TUNNELED CENTRAL VENOUS ACCESS WITH SUBQ PORT 09/11/2024 9:00 AM EST Scheduled Telephone Palliative Medicine, [facility] 400 [facility] 5th [place] [address] [place], Nurse Palliative Medicine [facility] 5th 400 [facility] [place] [address] 09/12/2024 10:00 AM EST Laboratory Laboratory [address] [place] [phone] [place], [address] [place] [address] 09/13/2024 9:00 AM EST Office Visit Hematology/Oncolog y [facility] Nori [place] [address] [place] [phone] Angela Carranza CRNP 400 [facility] [place] [address] 09/13/2024 9:30 AM EST Hem/Onc Treatment Hematology/Oncolog y Treatment, [place] [address] [place] [phone] Nori, Chair 8 Hem Onc [address] [place] [address] 09/13/2024 9:30 AM EST Office Visit Palliative Medicine [facility] [place] [address] [facility], [place] [phone] Kaye Augustine MD [address] [place] [address] [place] [address] 09/19/2024 9:30 AM EST Laboratory Laboratory [address] [place] [phone] [place] [address] 09/20/2024 9:30 AM EST [facility] 200 [facility], [place] [phone] Nori, Chair 2 Hem Onc [address] [place] [address] 09/26/2024 9:30 AM EST Laboratory Laboratory [address] [place] [phone] [place] [address] 09/27/2024 9:30 AM EST Office Visit Hematology/Oncolog y [facility] 200 [facility] [place] [phone] Chitra Bass MD 200 [facility] [place] [address] 09/27/2024 10:00 AM EST Hem/Onc Treatment Hematology/Oncolog y Treatment, [place] 200 [facility] [place] [phone] 10/03/2024 9:30 AM EDT Laboratory Laboratory [address] [place] [phone] [place] [address] 10/04/2024 9:30 AM EDT Hem/Onc Treatment Hematology/Oncolog y Treatment, [place] [address] [place] [address] Scheduled Procedures Name Priority Associated Diagnoses Date/Ti me INSERT TUNNELED CENTRAL VENOUS ACCESS WITH SUBQ PORT Squamous cell carcinoma of cervix (HCC) 09/08/2024 9:00 AM EST Health Maintenance Due Date Last [...]
--- OUTSIDE RECORDS SUMMARY | 2024-09-19 23:24 | External Medical Summary | Summary of Care ---
Author Name Unknown Organization [facility] Address [address] [place] [address] Phone [phone] Care Team Providers Care Business Support Name Role Phone Unavailable Primary Care Provider Unavailabl e Reason for Visit * Reason Onset Date Comments Information 09/06/2024 Encounter Details Date Type Department Care Team (Late st Contact Info) Description 09/06/2024 Telephone Hematology/Oncology Treatment, [place] [address] [place] [address] Chitra Bass MD 200 [place] [address] Information Allergies No known active allergiesdocumented as of [...] No 06/07/2024 Does the household have [facility] source [facility]? (Household - for ages [...] Telephone Encounter - Malorie Owen RN - 09/06/2024 9:[address] Bass's routing comment: "Patient was seen this morning because of the positive urine tests for . Recent menstrual period started on Wednesday and as of today she is continuing with the very little bleeding. She continued taking her periods on monthly basis. She also denies having a sex for over a year. Unlikely that she is and will proceed with the treatment. We will also add a blood beta-hCG with the next treatment." * Telephone Encounter - Malorie Owen RN - 09/06/2024 9:09 AM EST Urine preg positive. Spoke to lab- this was very weakly positive, which can sometimes be a result of the tumor/ disease state; however, they cannot report it out as weakly positive (only positive or negative). Dr Bass in to see patient. Patient denied having sex in >1 year, just had her period. Per Dr Bass, ok to proceed. Serum hcg added to todays labs, we will have her do this the day before chemotherapy in the future. Dr Bass: please note/ confirm above and that it is ok to proceed with chemotherapy today. Thanks! documented in this encounter Plan of Treatment Upcoming Encounters Date Type Department Care Team (Latest Contact Info) Description 09/06/2024 11:00 AM EST Office Visit Palliative Medicine [facility] [address] [place] [address] Kaye Augustine MD 400 [place] [address] Palliative Medicine Outpatient Consult Note 09/08/2024 9:00 AM EST Hospital Encounter OR [facility], Operating Room, [facility] - 4th Floor 400 [place] [phone] Armond Drew MD 400 [place] [address] 09/08/2024 9:00 AM EST - 09/08/2024 9:52 AM EST Surgery OR [facility], Operating Room, [facility] - 4th Floor [address] [place] [phone] Armond Drew MD [address] [place] [address] INSERT TUNNELED CENTRAL VENOUS ACCESS WITH SUBQ PORT 09/12/2024 10:00 AM EST Laboratory Laboratory [address] [place] [phone] [place], [address] [place] [address] 09/13/2024 9:00 AM EST Office Visit Hematology/Oncolog y [place] [address] [place] [phone] Angela Carranza CRNP [address] [place] [address] 09/13/2024 9:30 AM EST Hem/Onc Treatment Hematology/Oncolog y Treatment, [place] [address] [place] [phone] Nori, Chair 8 Hem Onc [place] [address] [place] [address] Scheduled Orders Name Type Priority Associated Diagnoses Orde r Schedule BETA-HCG, QUANTITATIVE Lab STAT Squamous cell carcinoma of cervix (HCC) Every Week for 52 Occurrences starting 09/06/2024 until 09/06/2025 Scheduled Procedures Name Priority Associated Diagnoses Date/Ti [...] Not on filedocumented as of this encounter Visit Diagnoses Diagnosis Squamous cell carcinoma of cervix (HCC)- Primary Malignant neoplasm of cervix uteri, unspecified site Squamous cell carcinoma of cervix (HCC) Malignant neoplasm of cervix uteri, unspecified site documented in this encounter
--- OUTSIDE RECORDS SUMMARY | 2024-09-19 23:24 | External Medical Summary | Summary of Care ---
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 (Household - for [...] 11:00 AM EST Office Visit Palliative Medicine [facility] [address] [place] [address] Kaye Augustine MD [address] [place] [address] Arrived 09/08/2024 9:00 AM EST Hospital Encounter OR [facility], Operating Room, [facility] - 4th Floor [address] [place] [phone] Armond Drew MD [address] [place] [address] 09/08/2024 9:00 AM EST - 09/08/2024 9:52 AM EST Surgery OR [facility], Operating Room, [facility] - 4th Floor [address] [place] [phone] Armond Drew MD [address] [place] [address] INSERT TUNNELED CENTRAL VENOUS ACCESS WITH SUBQ PORT 09/12/2024 10:00 AM EST Laboratory Laboratory [address] [place] [phone] [place], [address] [place] [address] 09/13/2024 9:00 AM EST Office Visit Hematology/Oncolog y [facility] [place] [address] [place] [phone] Angela Carranza CRNP [address] [place] [address] 09/13/2024 9:30 AM EST Hem/Onc Treatment Hematology/Oncolog y Treatment, [place] [address] [place] [phone] Nori, Chair 8 Hem Onc Scenery 200 [facility] [place] [address] Pending Results Name Type Priority Associated Diagnoses [...] 10.80 K/uL 09/06/2024 8:55 AM EST LABORATORY [facility] 56-02 Neutrophils % 60.0 40.0 - 75.0 % 09/06/2024 8:55 AM EST LABORATORY [facility] 56-02 Lymphocytes % 21.0 18.0 - 42.0 % 09/06/2024 8:55 AM EST LABORATORY [place] 56-02 Monocytes % 5.0 1.0 - 11.0 % 09/06/2024 8:55 AM EST [facility] 56-02 Eosinophils % 13.0(H) 0.0 - 6.0 % 09/06/2024 8:55 AM EST [facility] 56-02 Basophils % 1.0 0.0 - 2.0 % 09/06/2024 8:55 AM EST LABORATORY [place] 56-02 Absolute Neutrophils 12.50(H) 1.80 - 7.70 K/uL 09/06/2024 8:55 AM EST LABORATORY [facility] 56-02 Absolute Lymphocytes 4.37 1.00 - 4.80 K/uL 09/06/2024 8:55 AM EST [facility] 56-02 Absolute Monocytes 1.04 0.00 - 1.10 K/uL 09/06/2024 8:55 AM EST LABORATORY [facility] 56-02 Absolute Eosinophils 2.71(H) 0.00 - 0.70 K/uL 09/06/2024 8:55 AM EST LABORATORY [facility] 56-02 Absolute Basophils 0.21(H) 0.00 - 0.20 K/uL 09/06/2024 8:55 AM EST LABORATORY [place] 56-02 nRBCs 09/06/2024 8:55 AM EST LABORATORY [place] 56-02 Reactive Lymphocytes Present(A ) None Seen 09/06/2024 8:55 AM EST [facility] 56-02 Blood Venous blood specimen / Unknown Venipuncture / Unknown 09/06/2024 8:19 AM EST 09/06/2024 8:19 AM EST Chitra Bass MD LAB BLOOD ORDERABLES Fin al Result [facility] 56 [address] [place] [address] * (ABNORMAL) HCG QUALITATIVE, URINE (09/06/2024 8:19 AM EST) HCG Qualitative, Urine Positive(A ) Negative 09/06/2024 8:43 AM EST [facility] Comment:Results rechecked. Urine Urine specimen obtained by clean catch procedure / Unknown Non-blood Collection / Unknown 09/06/2024 8:19 AM EST 09/06/2024 8:19 AM EST Chitra Bass MD LAB URINE ORDERABLES Fin al Result [facility] 56 [address] [place] [address] * DIFFERENTIAL, AUTOMATED (09/06/2024 8:19 AM EST) Blood Venous blood specimen / Unknown Venipuncture / Unknown 09/06/2024 8:19 AM EST 09/06/2024 8:19 AM EST Chitra Bass MD LAB BLOOD ORDERABLES Fin al Result [facility] 56 [address] [place] [address] * (ABNORMAL) CBC (09/06/2024 8:19 AM EST) WBC 20.83(H) 4.00 - 10.80 K/uL 09/06/2024 8:55 AM EST [facility] RBC 4.04 3.85 - 5.15 M/uL 09/06/2024 8:55 AM [facility] 56-02 HGB 12.4 12.0 - 15.3 g/dL 09/06/2024 8:55 AM [facility] 56- HCT 38.5 36.0 - 45.2 % 09/06/2024 8:55 AM [facility] 56- MCV 95.3 81.5 - 97.5 fL 09/06/2024 8:55 AM [facility] 56- MCH 30.7 27.0 - 34.0 pg 09/06/2024 8:55 AM [facility] 56-02 MCHC 32.2 32.0 - 36.0 g/dL 09/06/2024 8:55 AM [facility] 56-02 RDW 13.5 11.5 - 15.5 % 09/06/2024 8:55 AM [facility] 56-02 PLT 479(H) 140 - 400 K/uL 09/06/2024 8:55 AM [facility] 56- MPV 10.3 6.6 - 11.1 fL 09/06/2024 8:55 AM [facility] 56- Blood Venous blood specimen / Unknown Venipuncture / Unknown 09/06/2024 8:19 AM EST 09/06/2024 8:19 AM EST Chitra Bass MD LAB BLOOD ORDERABLES Fin al Result [facility] 56-02 [address] [place] [address] * MAGNESIUM (09/06/2024 8:19 AM EST) Magnesium 2.1 1.5 - 2.6 mg/dL 09/06/2024 8:48 AM [facility] 56-02 Blood Venous blood specimen / Unknown Venipuncture / Unknown 09/06/2024 8:19 AM EST 09/06/2024 8:19 AM EST Chitra Bass MD LAB BLOOD ORDERABLES Fin al Result [facility] [address] [place] [address] * (ABNORMAL) COMPREHENSIVE METABOLIC PANEL (09/06/2024 8:19 AM EST) BUN 13 6 - 20 mg/dL 09/06/2024 8:48 AM [facility] 56 CREATININE 1.2(H) 0.5 - 1.0 mg/dL 09/06/2024 8:48 AM [facility] 56 EGFR 57(L) >=60 mL/min 09/06/2024 8:48 AM [facility] 56 Comment:eGFR is calculated b ased on the CKD-EPI 2020 equation. SODIUM 135 135 - 146 mmol/L 09/06/2024 8:48 AM [facility] 56 POTASSIUM 4.1 3.5 - 5.1 mmol/L 09/06/2024 8:48 AM [facility] 56- CHLORIDE 99 98 - 107 mmol/L 09/06/2024 8:48 AM [facility] 56- CO2 22 22 - 32 mmol/L 09/06/2024 8:48 AM [facility] 56 ANION GAP 14 7 - 15 mmol/L 09/06/2024 8:48 AM [facility] 56- GLUCOSE 96 70 - 120 mg/dL 09/06/2024 8:48 AM [facility] 56 Albumin 3.6(L) 3.8 - 5.0 g/dL 09/06/2024 8:48 AM [facility] 56- AST 13 10 - 35 U/L 09/06/2024 8:48 AM [facility] 56- Alkaline Phosphatase 94 35 - 130 U/L 09/06/2024 8:48 AM [facility] 56- Bilirubin, Total <0.2 <=1.2 mg/dL 09/06/2024 8:48 AM [facility] 56- CALCIUM 9.5 8.4 - 10.2 mg/dL 09/06/2024 8:48 AM [facility] 56- Protein 7.6 6.0 - 8.3 g/dL 09/06/2024 8:48 AM [facility] ALT <5(L) 10 - 35 U/L 09/06/2024 8:48 AM EST [facility] Blood Venous blood specimen / Unknown Venipuncture / Unknown 09/06/2024 8:19 AM EST 09/06/2024 8:19 AM EST us Chitra Bass MD LAB BLOOD ORDERABLES Fin al Result [facility] [address] [place] [address] documented in this encounter Visit Diagnoses Diagnosis Squamous cell carcinoma of cervix (HCC) Malignant neoplasm of cervix uteri, unspecified site Squamous cell carcinoma of cervix (HCC) Malignant neoplasm of cervix uteri, unspecified site documented in this encounter
--- OUTSIDE RECORDS SUMMARY | 2024-09-19 23:24 | External Medical Summary | Summary of Care ---
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 (Household - for ages [...] as of this encounter Miscellaneous Notes * Addendum Note - Natalie Owen, RN - 09/06/2024 9:09 AM ESTAddended by: NATALIE OWEN on: 09/06/2024 09:09 AM Modules accepted: Orders documented in this encounter Plan of Treatment Upcoming Encounters Date Type Department Care Team (Latest Contact Info) Description 09/06/2024 11:00 AM EST Office Visit Palliative Medicine [facility] [address] [place] [phone] Kaye Augustine MD [address] [facility] [place] [address] Arrived 09/08/2024 9:00 AM EST Hospital Encounter OR [facility], Operating Room, [facility] - 4th Floor [address] [place] [phone] Armond Drew MD [address] [place] [address] 09/08/2024 9:00 AM EST - 09/08/2024 9:52 AM EST Surgery OR [facility], Operating Room, [facility] - 4th Floor [address] [place] [phone] Armond Drew MD [address] [place] [address] [place] [address] INSERT TUNNELED CENTRAL VENOUS ACCESS WITH SUBQ PORT 09/12/2024 10:00 AM EST Laboratory Laboratory [address] [place] [phone] [place] [address] 09/13/2024 9:00 AM EST Office Visit Hematology[facility]On[facility]olog [facility] [address] [facility] [phone] Angela Carranza CRNP [address] [place] [address] 09/13/2024 9:30 AM EST Hem/Onc Treatment Hematology/Oncolog y Treatment, [place] [address] [place] [phone] [place], Chair 8 Hem Onc Scenery [address] [place] [address] Pending Results Name Type Priority Associated Diagnoses Date /Time BETA-HCG, QUANTITATIVE Lab STAT Squamous cell carcinoma of cervix (HCC) 09/06/2024 8:19 AM EST Scheduled Orders Name Type Priority Associated Diagnoses Orde r Schedule BETA-HCG, QUANTITATIVE Lab STAT Squamous cell carcinoma of cervix (HCC) Expected: 09/06/2024, Expires: 09/06/2025 Scheduled Procedures Name Priority Associated Diagnoses [...]
--- OUTSIDE RECORDS SUMMARY | 2024-09-19 23:24 | External Medical Summary | Summary of Care ---
Author Name Unknown Organization [facility] Address [address] [facility] [place] [address] Phone [phone] Care Team Providers Care Alteration Tailor Name Role Phone Unavailable Primary Care Provider Unavailabl e Reason for Visit * Auth/Cert Specialty Diagnoses / Procedures Referred By Sujit t Referred To Contact Diagnoses Squamous cell carcinoma of cervix (HCC) Squamous cell carcinoma of cervix (HCC) [C53.9] Procedures INSER TUNN ACC DEV;5 YRS/OLDER INSERT TUNNELED CENTRAL VENOUS ACCESS WITH SUBQ PORT Armond Drew MD [address] [place] [address] Phone: tel: fax: OR [facility], Operating Room, [facility] - 4th Floor [address] [place] [address] Phone: tel: Referral ID Status Reason Start Date Expiration Date Visits Re quested Visits Authorized [id number] Encounter Details Date Type Department Care Team (Latest Contact Info) Description 09/08/2024 7:37 AM EST - 09/08/2024 10:20 AM EST Hospital Encounter OR [facility], Operating Room, [facility] - 4th Floor [address] [place] [address] Armond Drew MD [address] [address] Discharge Disposition: Home - Self Care Allergies No known active allergiesdocumented as of this encounter (statuses as of 09/09/2024) Medications traMADol HCl 50 MG Oral Tablet [...] as of this encounter (statuses as of 09/09/2024) Active Problems Problem Noted Date Diagnosed Date Encounter for antineoplastic chemotherapy 2024 Squamous cell carcinoma of cervix 07/31/2024 Tobacco use documented as of this encounter (statuses as of 09/09/2024) Resolved Problems Problem Noted Date Diagnosed Date Resolved Date Encounter for supervision of other normal 01/31/2002 04/26/2002 Overview (11/26/2015): ICD-10 update of inactive term documented as of this encounter (statuses as of 09/09/2024) Social History Tobacco Use Types Packs/Day Years [...] Sign Reading Time Taken Comments Blood Pressure 142/81 09/08/2024 10:13 AM EST Pulse 81 09/08/2024 10:13 AM EST Temperature 36 C (96.8 F) 09/08/2024 10:13 AM EST Respiratory Rate 16 09/08/2024 10:13 AM EST Oxygen Saturation 97% 09/08/2024 10:13 AM EST Inhaled Oxygen Concentration - - Weight 56.7 kg (125 lb) 09/08/2024 8:09 AM EST Height 160 cm (5' 3") 09/08/2024 8:09 AM EST Body Mass Index 22.14 09/08/2024 8:09 AM EST documented in this encounter Discharge Instructions * Discharge Instr - AVS* Armond Drew MD - 09/08/2024 9:46 AM EST Discharge Date: 09/08/2024 Provider: Dr. Armond Drew If you are experiencing any problems related to your procedure, please contact Interventional Radiology at [phone] during normal business hours: Wednesday- Wednesday 7:30 am - 4 pm. If a problem occursoutside of normal business hours, please call the hospital borematic operator at [phone] and ask for theInterventional Radiologist ammonium hydroxide operator. Contact scheduling for Interventional Radiology at [phone] during normal business hours: Wednesday-Wednesday, 7:30 am - 4 pm. The information below provides you with the instructions and the list of medications you need to betaking following discharge from the hospital. If you have any questions, please ask before leaving.Please carry this letter with you when you see your doctor in the clinic. If you have questions, you can reach us at the numbers above. SPECIAL INSTRUCTIONS Mediport Insertion (Implanted Central Venous Access) A Mediport is a sealed chamber covered by a silicone disc that is surgically placed in a pocket under the skin on the upper chest, just below the collarbone. This chamber connects to a flexible tube that goes into a large vein in the neck. The tip is near the heart. The port provides direct access to the bloodstream and can be used in drawing blood samples and giving intravenous fluids and medications. Some ports allow CT scan injections; these ports are referred to as "Power Ports." The port will be visible only as a small raised area beneath your skin. Home Care If you experience pain or discomfort at the site you may use a cold pack on the site and/or take acetaminophen (Tylenol) or your preferred pain medicine as directed. Avoid contact sports or any activity that may cause blunt force impact to the port area, as it may damage your port. Avoid strenuous activity for 24 to 48 hours after the procedure. Do not lift anything heavier than 10 pounds for 3 days after the procedure. Gradually increase your activity after 24 to 48 hours after the procedure. No dressing changes or wound care are needed at the insertion site. Your wound is closed with sutures on the inside and then sealed on the outside with a special "skin glue" called Dermabond (a surgical glue). Depending on your physician's preference, there may also be "steri strips" applied. It isvery important to let these special bandages fall off on their own. Please do not scrub or pull these bandages off. You may gently wash the area with soap and water. Depending on your physician's preference, there may also be gauze and Tegaderm (clear) bandage overthe Mediport insertion site. You may remove this bandage in 24 hours. You may shower in 24 hours. Gently wash the area and pat it dry. Please DO NOT take a bath, soak in a hot tub, or swim until the wound is completely healed. Your port must be accessed and flushed/heparinized every 30 days if it is not currently being used. When to Call Interventional Radiology Call Interventional Radiology right away if you have any of the following: Fever above 100 degrees Fahrenheit Increased bleeding, redness, swelling, warmth, or discharge at the incision site. Constant or increasing pain, numbness, coldness, or tingling around the incision area. Vomiting or nausea that does not go away If at any time you experience any of the following or feel you are having a medical emergency, [id number] for emergency assistance. Chest Pain Sudden, severe shortness of breath Rapid heart rate Sudden onset of weakness Do not smoke or use tobacco products in any way! If you feel suicidal or homicidal, please call the crisis hotline at 4-967-296-KGNY ([phone]) MODERATE SEDATION You may have received medication that made you comfortable/sedated you during your procedure. This is considered moderate sedation. This medication was given to relax you. You may also not remember having the procedure done. It may take up to 24 hours for this medication to be out of your system. Because of this, you should observe the following for the next 24 hours: Do not drink alcohol or take depressant drugs. Do not operate any type of machinery that requires hand-eye coordination. Do not sign any legal papers or documents. Do not make any financial decisions. You should be in the presence of an adult for the remainder of the day. If you are experiencing any problems related to your procedure, you should contact the Interventional Radiology physician unless otherwise directed. Driving: You may resume driving 1 day . Diet: You may resume your current diet as tolerated. Return to work or school: You may return to school or work 1 days after the procedure, unless otherwise instructed by the physician. documented in this encounter Progress Notes * Armond Drew MD - 09/08/2024 9:53 AM EST [address] [address] OUTPATIENT SURGERY DISCHARGE SUMMARY NOTE Name: Luanne Farrell Location: [place] [facility]/OR Date: 09/08/2024 Time: 9:53 AM Surgery Date: 09/08/2024 Procedure: INSERT TUNNELED CENTRAL VENOUS ACCESS WITH SUBQ PORT Right Surgeon: Armond Drew MD Discharge Diagnosis: port placement After examination of this patient, I have determined she is ready for discharge to home when the patient meets criteria. Discharge instructions were given to the patient. documented in this encounter H&P Notes * Armond Drew MD - 09/08/2024 8:07 AM EST HISTORY & PHYSICAL - Interventional Radiology Service [address] [address] Name: Luanne Farrell Location: [place] [facility]/OR Date: 09/08/2024 Time: 8:07 AM CHIEF COMPLAINT: Port placement HISTORY OF PRESENT ILLNESS: Squamous Cell Carcinoma of the Cervix Past Medical History: Diagnosis Date Squamous cell carcinoma of cervix (HCC) 07/31/2024 Tobacco use Past Surgical History: Procedure Laterality Date REMOVAL OF KNEE CYST ([facility]) Social History [...] Stability Do you currently live in a group home or have no steady place to sleep [...] - for ages0-17 years): Not on file Family History Problem Relation Name Age of Onset Kidney disease Father Breast Cancer No significant family history Colon cancer No significant family history Uterine cancer No significant family history Endometrial cancer No significant family history Ovarian cancer No significant family history Review of patient's allergies indicates: No Known Allergies No current facility-administered medications for this encounter. REVIEW OF SYSTEMS: Constitutional: (-) fever chills sweats or weight loss Cardiovascular: (-) negative: no chest pain, dyspnea, syncope, or palpitations Pulmonary: (-) negative: no cough, wheezing, or shortness of breath Abdominal/GI: (-) negative: no pain, heartburn, dysphagia, bleeding, change in bowel habits, nauseaor vomiting OBJECTIVE: BP 140/82 | Pulse 74 | Temp 36.7 C (98.1 F) (Tympanic) | Resp 16 | SpO2 99% PHYSICAL EXAM: Constitutional: no acute distress CV: normal rate and rhythm, no murmur, gallops or rub Chest: normal respiratory effort, lungs clear to auscultation and percussion, breath sounds normal Abdomen: normal: soft, bowel sounds normal, no masses, tenderness or organomegaly LABS: CBC Results: PT INR Results: BUN Results: Lab Results Component Value Date/Time BUN - [facility] 13 09/06/2024 08:19 AM BUN - [facility] 13 08/31/2024 11:00 AM Creatinine Results: Lab Results Component Value Date/Time CREATININE - [facility] 1.2 (H) 09/06/2024 08:19 AM CREATININE - [facility] 1.2 (H) 08/31/2024 11:00 AM Potassium Results: Lab Results Component Value Date/Time POTASSIUM - [facility] 4.1 09/06/2024 08:19 AM POTASSIUM - [facility] 4.1 08/31/2024 11:00 AM INFORMED CONSENT: Yes PRE-SEDATION ASSESSMENT IMPRESSION/PLAN: Port placement Armond Drew MD documented in this encounter Nursing Notes * Faye Kennedy RN - 09/08/2024 9:05 AM EST Pt condition was reassessed by Dr. Armond Drew immediately prior to start of moderate sedation and procedure. documented in this encounter OR Notes * OR Surgeon - Armond Drew MD - 09/08/2024 9:48 AM EST Procedure: chest medical port placement 09/08/24 INDICATION: central intravenous access needed for chemotherapy.] ATTENDING (OPERATING PHYSICIAN): [Viki] CONSENT: After a detailed discussion of the procedure, risks, benefits and alternative treatment options, informed consent was obtained. TIME OUT: A time out procedure was performed. The patient's identification was verified. Informed consent with agreement of procedure, site and position was obtained. All necessary equipment was available prior to procedure. CONTRAST: No contrast was administered. COMPLICATIONS: None. ANESTHESIA: [Local lidocaine.] [IV Versed.] [IV Fentanyl.] SEDATION TIME: [Start to end: 919 [-939]. Qualified nurse sedation observer [GARRY Jarrell.] MEDICATIONS: See MAR PROCEDURE DESCRIPTION: The [right] neck and chest were prepped and draped in the usual sterile fashion. After local anesthesia, a small incision was made at the site of venous access in the neck. Using real-time ultrasound guidance, the internal jugular vein was punctured with a micro puncture needle. Digital ultrasound images were acquired and digitally archived. A wire and sheath were used to secure access to the internal jugular vein access using fluoroscopic guidance. [A second incision was made in the upper chest and a pocket was created. The medical port catheter was tunneled from the pocket to the venotomy site. A peel- away sheath was placed through the venotomy over the wire and the catheter was advanced through a peel-away sheath and positioned under fluoroscopic guidance. The catheter was then measured to [24] cm, cut, and attached to a power injectable port.] Once the medical port and catheter were in satisfactory position, the medical port was accessed, had appropriate blood return, and easily flushed and was locked with dilute heparin. [The incision wasthen closed in layers with absorbable sutures and tissue adhesive.] The venotomy site was closed with [absorbable suture and] tissue adhesive. I personally performed the procedure. Findings: Ultrasound shows an anechoic and compressible [right] internal jugular vein. The medical port is inthe upper chest with the catheter tip at the [right atrium] Impression: Successful placement of a chest power injectable medical port. documented in this encounter Miscellaneous Notes * Sedation Note - Armond Drew MD - 09/08/2024 9:45 AM EST Post Sedation Evaluation: Cardiovascular status: acceptable Level of consciousness: awake and alert Airway patency: patent Distress - NAD Hydration status - well hydrated Nausea/vomiting - not present Pain Evaluation Pain Assessment Flowsheet Row Most Recent Value Pain Assessment Scale [facility] Scale 0-10 (18 years and older) Pain Score 0 (no pain) Vital Signs: Temp: 36.3 C (97.3 F) (09/08 942) BP: 140/89 (09/08 942) Pulse: 87 (09/08 942) Resp: 16 (09/08 942) SpO2: 97 % (09/08 942) I have personally examined the patient, prescribed the necessary medications as charted, and certify that Luanne Farrell is recovered for safe discharge from my face to face care. * Postprocedure Note - Armond Drew MD - 09/08/2024 9:14 AM EST PROCEDURE NOTE - Interventional Radiology [facility]-[address] [address] Name: Luanne Farrell Location: [facility]/OR Date: 09/08/2024 Time: 9:44 AM PROCEDURE: port placement BACK HOE OPERATOR: Dr. Armond Drew ASSISTANTS: none ANESTHESIA: local conscious sedation COMPLICATIONS: none SPECIMEN: none ESTIMATED BLOOD LOSS: negligible FINDINGS: right IJ patent * Pre-Sedation Assessment - Armond Drew MD - 09/08/2024 8:18 AM EST PRE-SEDATION ASSESSMENT PRE-SEDATION ASSESSMENT: Port Placement Level of sedation planned: Moderate Patient's allergies reviewed: Yes H&P Review / Interval Note Documentation: There is no H&P on file. Difficulty with sedation / anesthesia: No Sleep apnea: No History of snoring: No History of difficult intubation: No Decreased ROM neck flexion/extension: No Tracheal deviation: No Decreased ability to open mouth / TMJ: No Loose teeth / dentures / partial: No Congenital deformities / abnormalities: No Dysphagia: No Mallampati Classification: II - soft palate, uvula, fauces visible Chest: Clear Heart: Regular Rhythm Adequate Vascular Access: Yes ASA Risk Stratification (Select One): ASA 2 - Mild systemic disease, no functional limitations The patient was identified and the procedure verified: Yes The patient was reevaluated immediately prior to the sedation: 09/08/2024 8:18 AM documented in this encounter Plan of Treatment Upcoming Encounters Date Type Department Care Team (Late st Contact Info) Description 09/11/2024 9:00 AM EST Scheduled Telephone Palliative Medicine, [facility] [address] [facility] 5th [place] [address] [place], Nurse Palliative Medicine [address] [place] [address] 09/12/2024 10:00 AM EST Laboratory Laboratory [address] [place] [phone] [place], Lab [address] [place] [address] 09/13/2024 9:00 AM EST Office Visit Hematology/Oncology [facility] [place] [address] [facility] [place] [phone] Angela Carranza CRNP [address] [facility] [place] [address] 09/13/2024 9:30 AM EST Hem/Onc Treatment Hematology/Oncology Treatment, [place] [address] [facility] [place] [address] Nori, Chair 8 Hem Onc [facility] [address] [facility] [place] [address] 09/13/2024 9:30 AM EST Office Visit Palliative Medicine [facility] [place] [address] [facility], [place] [phone] Kaye Augustine MD [address] [place], [place] [address] [place] [address] 09/19/2024 9:30 AM EST Laboratory Laboratory [address] [place] [phone] [address] [place] [address] 09/20/2024 9:30 AM EST Hem/Onc Treatment Hematology/Oncology [address], [place] [phone] Nori, Chair 2 Hem Onc [address] [place] [address] 09/26/2024 9:30 AM EST Laboratory Laboratory [address] [place] [phone] [place] [address] 09/27/2024 9:30 AM EST Office Visit Hematology/Oncology [facility] [place] [address] [facility] [place] [phone] Chitra Bass MD [address] [facility] [place] [address] 09/27/2024 10:00 AM EST Hem/Onc Treatment Hematology/Oncology Treatment, [address] [place] [phone] 10/03/2024 9:30 AM EDT Laboratory Laboratory [address] [place] [phone] [place] [address] 10/04/2024 9:30 AM EDT Hem/Onc Treatment Hematology/Oncology Treatment, [place] [address] [place] [address] Health Maintenance Due Date Last Done [...] this encounter Medical Devices Implanted Type Area Health Economist Device Identifier Shelf Expiration Date Model / Serial / Lot Power Port 8fr Sngl Lumen Plas - [id number] Implanted:Qty : 1 on 09/08/2024 by Armond Drew MD at OR [facility] Right: Chest CR BARD : PERIPHERAL VASCULAR [id number] 10/23/2025 [id number] / / [id number] documented as of this encounter Procedures Procedure Name Priority Date/Time Associated Diagnosis Comments IR INTERVENTIONAL RADIOLOGY PROCEDURE IN OR Routine 09/08/2024 9:35 AM EST documented in this encounter Results * IR INTERVENTIONAL RADIOLOGY PROCEDURE IN OR (09/08/2024 9:35 AM EST) 09/08/2024 9:51 AM EST Impressions [facility] - 09/08/2024 9:48 AM EST IMPRESSION: Successful placement of a chest power injectable medical port. Narrative [facility] - 09/08/2024 9:48 AM EST PROCEDURE: chest medical port placement 09/08/24 INDICATION: central intravenous access needed for chemotherapy. ATTENDING (OPERATING PHYSICIAN): Viki CONSENT: After a detailed discussion of the procedure, risks, benefits and alternative treatment options, informed consent was obtained. TIME OUT: A time out procedure was performed. The patient's identification was verified. Informed consent with agreement of procedure, site and position was obtained. All necessary equipment was available prior to procedure. CONTRAST: No contrast was administered. COMPLICATIONS: None. ANESTHESIA: Local lidocaine. IV Versed. IV Fentanyl. SEDATION TIME: Start to end: . Qualified nurse sedation observer GARRY Barroso. MEDICATIONS: See MAR PROCEDURE DESCRIPTION: The right neck and chest were prepped and draped in the usual sterile fashion. After local anesthesia, a small incision was made at the site of venous access in the neck. Using real-time ultrasound guidance, the internal jugular vein was punctured with a micro puncture needle. Digital ultrasound images were acquired and digitally archived. A wire and sheath were used to secure access to the internal jugular vein access using fluoroscopic guidance. A second incision was made in the upper chest and a pocket was created. The medical port catheter was tunneled from the pocket to the venotomy site. A peel-away sheath was placed through the venotomy over the wire and the catheter was advanced through a peel-away sheath and positioned under fluoroscopic guidance. The catheter was then measured to 24 cm, cut, and attached to a power injectable port. Once the medical port and catheter were in satisfactory position, the medical port was accessed, had appropriate blood return, and easily flushed and was locked with dilute heparin. The incision was then closed in layers with absorbable sutures and tissue adhesive. The venotomy site was closed with absorbable suture and tissue adhesive. I personally performed the procedure. FINDINGS: Ultrasound shows an anechoic and compressible right internal jugular vein. The medical port is in the upper chest with the catheter tip at the right atrium Procedure Note Armond Drew MD - 09/08/2024 PROCEDURE: chest medical port placement 09/08/24 INDICATION: central intravenous access needed for chemotherapy. ATTENDING (OPERATING PHYSICIAN): Viki CONSENT: After a detailed discussion of the procedure, risks, benefits andalternative treatment options, informed consent was obtained. TIME OUT: A time out procedure was performed. The patient's identificationwas verified. Informed consent with agreement of procedure, site andposition was obtained. All necessary equipment was available prior toprocedure. CONTRAST: No contrast was administered. COMPLICATIONS: None. ANESTHESIA: Local lidocaine. IV Versed. IV Fentanyl. SEDATION TIME: Start to end: . Qualified nurse sedation GARRY Luz. MEDICATIONS: See JOSE PROCEDURE DESCRIPTION: The right neck and chest were prepped and draped inthe usual sterile fashion. After local anesthesia, a small incision wasmade at the site of venous access in the neck. Using real-timeultrasound guidance, the internal jugular vein was punctured with a micropuncture needle. Digital ultrasound images were acquired and digitallyarchived. A wire and sheath were used to secure access to the internaljugular vein access using fluoroscopic guidance. A second incision was made in the upper chest and a pocket was created.The medical port catheter was tunneled from the pocket to the venotomysite. A peel-away sheath was placed through the venotomy over the wire andthe catheter was advanced through a peel-away sheath and positioned underfluoroscopic guidance. The catheter was then measured to 24 cm, cut, andattached to a power injectable port. Once the medical port and catheter were in satisfactory position, themedical port was accessed, had appropriate blood return, and easilyflushed and was locked with dilute heparin. The incision was then closedin layers with absorbable sutures and tissue adhesive. The venotomy sitewas closed with absorbable suture and tissue adhesive. I personally performed the procedure. FINDINGS: Ultrasound shows an anechoic and compressible right internal jugular vein.The medical port is in the upper chest with the catheter tip at the rightatrium IMPRESSION IMPRESSION: Successful placement of a chest power injectable medical port. us Armond Drew MD RAD SPECIAL PROCEDURES Final Res ult [facility] documented in this encounter Administered Medications Inactive Administered Medications - up to 3 most recent administrations Medication Order MAR Action Action Date Dose Rate Site ceFAZolin in dextrose (Ancef) ivpb 2 g 2 g, IV Piggyback, ONCE, 1 dose, On Wed09/08/24 at 0945, Intra-Op New Bag 09/08/2024 9:20 AM EST 2 g 100 mL/hr Isolyte-S pH 7.4 infusion Intravenous, at 10 mL/hr, Plasma-LYTE 148, isolyte-S, and isolyte-S pH 7.4 are considered equivalent - including for MAR barcode scanning., CONTINUOUS, Starting on Wed09/08/24 at 0845, Until Wed09/08/24 at 1420 New Bag 09/08/2024 8:12 AM EST 10 mL/hr documented in this encounter Active and Recently Administered Medications Times are shown in EST. Scheduled Medication Order 09/06/2024 09/07/2024 09/08/2024 ceFAZolin in dextrose (Ancef) ivpb 2 g (COMPLETED) 2 g, IV Piggyback, ONCE, 1 dose, On Wed09/08/24 at 0945, Intra-Op 0920 (New Bag - Prov ider: Delbert Barroso, GARRY) Continuous Medication Order 09/06/2024 09/07/2024 09/08/2024 Isolyte-S pH 7.4 infusion Intravenous, at 10 mL/hr, Plasma-LYTE 148, isolyte-S, and isolyte-S pH 7.4 are considered equivalent - including for MAR barcode scanning., CONTINUOUS, Starting on Wed09/08/24 at 0845, Until Wed09/08/24 at 1420 0812 (New Bag - Prov ider: Lucinda Jacobo RN) PRN Medication Order 09/06/2024 09/07/2024 09/08/2024 buffered lidocaine 1 % inj (CANCELED) ONCE PRN INTRA PROCEDURE, Starting on Wed09/08/24 at 0931, Until Wed09/08/24 at 0939, Intra-Op 0931 (Given - Provid er: Armond Drew MD) fentaNYL (PF) inj (CANCELED) ONCE PRN INTRA PROCEDURE, Starting on Wed09/08/24 at 0916, Until Wed09/08/24 at 0939, Intra-Op 0916 (Given - Provid er: Delbert Barroso RN)918 (Given - Provider: Delbert Barroso RN) hEParin 100 UNIT/ML Lock Flush inj (CANCELED) ONCE PRN INTRA PROCEDURE, Starting on Wed09/08/24 at 0931, Until Wed09/08/24 at 0939, Intra-Op 0931 (Given - Provid er: Armond Drew MD) midazolam (Versed) 2 MG/2ML inj (CANCELED) ONCE PRN INTRA PROCEDURE, Starting on Wed09/08/24 at 0916, Until Wed09/08/24 at 0939, Intra-Op 0916 (Given - Provid er: Delbert Barroso RN)918 (Given - Provider: Delbert Barroso RN) documented in this encounter
--- OUTSIDE RECORDS SUMMARY | 2024-09-19 23:24 | External Medical Summary | Summary of Care ---
Author Name Unknown Organization [facility] Address [address] [place] [address] Phone [phone] Care Team Providers Care Commercial Teller Name Role Phone Unavailable Primary Care Provider Unavailabl e Reason for Visit * Reason Comments Chemotherapy C1 D1 Keytruda, Cisp latin * Episode Based Medications (Routine) - Authorized Specialty Diagnoses / Procedures Referred By Sujit alberts Referred To Contact Diagnoses Encounter for antineoplastic chemotherapy Squamous cell carcinoma of cervix (HCC) Procedures KS CISPLATIN 10 MG INJECTION KS FOSAPREPITANT INJECTION KS INJ PEMBROLIZUMAB Chitra Bass MD [address] [place] [address] [place] [address] Phone: tel: fax: Hematology/Oncology Treatment, [address] [address] Phone: tel: fax: Referral ID Status Reason Start Date Expiration Date V isits Requested Visits Authorized [id number] Authorized 09/01/2024 02/27/2025 [id number] Encounter Details Date Type Department Care Team (Latest Contact Info) Description 09/06/2024 9:30 AM EST Hem/Onc Treatment Hematology/Oncolog y Treatment, [address] [place] [address] Nori, Chair 10 Hem Onc [address] [place], [place] [id number] Encounter for antineoplastic chemotherapy*; Squamous cell carcinoma of cervix (HCC) Allergies No known active allergiesdocumented as of this encounter (statuses as of 09/07/2024) Medications traMADol HCl 50 MG Oral Tablet [...] as of this encounter (statuses as of 09/07/2024) Active Problems Problem Noted Date Diagnosed Date Encounter for antineoplastic chemotherapy 2024 Squamous cell carcinoma of cervix 07/31/2024 Tobacco use documented as of this encounter (statuses as of 09/07/2024) Resolved Problems Problem Noted Date Diagnosed Date Resolved Date Encounter for supervision of other normal 01/31/2002 04/26/2002 Overview (11/26/2015): ICD-10 update of inactive term documented as of this encounter (statuses as of 09/07/2024) Social History Tobacco Use Types Packs/Day Years [...] Sign Reading Time Taken Comments Blood Pressure 125/81 09/06/2024 9:27 AM EST Pulse 99 09/06/2024 9:27 AM EST Temperature 37 C (98.6 F) 09/06/2024 9:27 AM EST Respiratory Rate 18 09/06/2024 9:27 AM EST Oxygen Saturation 95% 09/06/2024 9:27 AM EST Inhaled Oxygen Concentration - - Weight 57 kg (125 lb 9.6 oz) 09/06/2024 9:27 AM EST Height - - Body Mass Index 22.25 08/28/2024 12:47 PM EST documented in this encounter Nursing Notes * Genesis Gauthier RN - 09/06/2024 3:29 PM EST Patient tolerated treatment without issue. PIV removed intact. Goals: Patient will remain free from injury. Possible barriers to meeting goals: Ambulating with IV pole Stability of the patient: Moderately stable - low risk of patient condition declining or worsening Summary regarding today's goals: Met: Patient remained free from harm. Pt discharged in stable condition. * Genesis Gauthier RN - 09/06/2024 11:42 AM EST Chair 3 Patient here for treatment. Oriented patient to department and meds. PIV started with brisk blood return. Noted dose reduction due to labs. Chemotherapy/Immunotherapy agents: CISPLATIN and KEYTRUDA Consent for chemotherapy drug treatment complete, dated, and signed? yes, date - 08/28/24 Treatment lab parameters met? Yes Has treatment weight changed > than 10%? No Treatment preauthorized? Yes VITALS Filed Vitals: 09/06/24 0927 BP: 125/81 Pulse: 99 Resp: 18 Temp: 37 C (98.6 F) SpO2: 95% Weight: 57 kg (125 lb 9.6 oz) BP Readings from Last 2 Encounters: 09/06/24 125/81 08/28/24 132/84 Pulse Readings from Last 2 Encounters: 09/06/24 99 08/28/24 101 Resp Readings from Last 2 Encounters: 09/06/24 18 08/25/24 16 SpO2 Readings from Last 2 Encounters: 09/06/24 95% 08/28/24 96% Temp Readings from Last 2 Encounters: 09/06/24 37 C (98.6 F) 08/28/24 36.7 C (98.1 F) (Tympanic) Urine protein: N/A Patient education completed for treatment? Yes Blood transfusion consent signed and complete? NA Return appointment scheduled? Yes Patient had provider visit today? No - If no provider visit must complete Pretreatment Assessment Functional Status: Functional status at today's visit: [...] potential peterson while using the heat function. PRE-TREATMENT ASSESSMENT: NEURO: denies symptoms CV/RESP: denies symptoms GI/: denies symptoms OTHER: denies any additional symptoms PAIN: 0 Safety and Risk for Injury Patient will remain free from injury. Ensure appropriate safety devices are available. Provide and maintain safe environment. documented in this encounter Plan of Treatment Upcoming Encounters Date Type Department Care Team (Late st Contact Info) Description 09/08/2024 9:00 AM EST Hospital Encounter OR [facility], Operating Room, [facility] - 4th Floor [address] [place] [phone] Armond Drew MD 400 [place] [address] 09/08/2024 9:00 AM EST - 09/08/2024 9:52 AM EST Surgery OR [facility], Operating Room, [facility] - 4th Floor [address] [place] [phone] Armond Drew MD [address] [place], [place] [address] [address] INSERT TUNNELED CENTRAL VENOUS ACCESS WITH SUBQ PORT 09/11/2024 9:00 AM EST Scheduled Telephone Palliative Medicine, [facility] 400 [facility] 5th [facility] [place] [address] In, Nurse Palliative Medicine [address] [place] [address] 09/12/2024 10:00 AM EST Laboratory Laboratory [address] [place] [phone] [address] [place] [address] 09/13/2024 9:00 AM EST Office Visit Hematology/Oncolog y [place] 200 [facility] [place] [address] Angela Carranza CRNP 400 [facility] [place] [address] 09/13/2024 9:30 AM EST Hem/Onc Treatment Hematology/Oncolog y Treatment, [place] [address] [place], [place] [phone] Nori, Chair 8 Hem Onc Scenery [address] [place] [address] 09/13/2024 9:30 AM EST Office Visit Palliative Medicine [facility] [place] 200 [facility], [place] [phone] Kaye Augustine MD [address] [place] [address] [place] [address] 09/19/2024 9:30 AM EST Laboratory Laboratory [address] [place] [phone] [address] [place] [address] 09/20/2024 9:30 AM EST Hem/Onc Treatment Hematology/Oncolog y Treatment, [place] 200 [facility], [place] [phone] Nori, Chair 2 Hem Onc Scenery 200 [facility] [place] [address] 09/26/2024 9:30 AM EST Laboratory Laboratory [address] [place] [phone] [place] [address] 09/27/2024 9:30 AM EST Office Visit [facility] [place] [address] [place] [phone] Chitra Bass MD [address] [place] [address] 09/27/2024 10:00 AM EST Hem/Onc Treatment Hematology[facility]olog [facility] Treatment [place] [facility] [phone] 10/03/2024 9:30 AM EDT Laboratory Laboratory [place] [address] [place] [phone] [place] [address] 10/04/2024 9:30 AM EDT Hem/Onc Treatment Hematology/Oncolog y Treatment, [place] [address] [place] [address] Scheduled Procedures Name Priority Associated Diagnoses [...] radiation therapy only., ONCE, 1 dose, On Wed09/06/24 at 1130Indications:Encounter for antineoplastic chemotherapy,Squamous cell carcinoma of cervix (HCC) Start Infusion 09/06/2024 12:02 PM EST 48 mg 255 mL/hr Fosaprepitant Dimeglumine (Emend) 150 mg, ondansetron (Zofran) 16 mg, dexamethasone sodium phosphate 12 mg in NSS 250 mL Infusion 150 mg, IV Piggyback, ONCE, 1 dose, On Wed09/06/24 at 1100, Administer over 30 Minutes, Infuse over 30 minutes. Give 30 minutes prior to chemotherapy.Indications:E ncounter for antineoplastic chemotherapy,Squamous cell carcinoma of cervix (HCC) Start Infusion 09/06/2024 10:04 AM EST 150 mg 538.4 mL/hr NSS 1,000 mL with potassium chloride 10 mEq, Magnesium Sulfate 1 g INFUSION Central IV, at 500 mL/hr Administer over 2 Hours, CONTINUOUS, Starting on Wed09/06/24 at 1230, Until Wed09/06/24 at 1429Indications:Encounter for antineoplastic chemotherapy,Squamous cell carcinoma of cervix (HCC) Start Infusion 09/06/2024 1:08 PM EST 500 mL/hr NSS infusion FOR HYDRATION Intravenous, at 50 mL/hr Administer over 10 Hours, ONCE PRN, 1 dose, Starting on Wed09/06/24 at 0947, Until Wed09/06/24 at 1510Indications:Encounter for antineoplastic chemotherapy,Squamous cell carcinoma of cervix (HCC) Start Infusion 09/06/2024 9:48 AM EST 500 mL 50 mL/hr NSS infusion 1,000 mL, Intravenous, at 500 mL/hr Administer over 2 Hours, Pre-cisplatin hydration, CONTINUOUS, Starting on Wed09/06/24 at 1030, Until Wed09/06/24 at 1229Indications:Encounter for antineoplastic chemotherapy,Squamous cell carcinoma of cervix (HCC) Start Infusion 09/06/2024 9:56 AM EST 1,000 mL 500 mL/hr Pembrolizumab (Keytruda) 200 mg in NSS 100 mL infusion 200 mg, IV Piggyback, ONCE, 1 dose, On Wed09/06/24 at 1030, Administer over 30 Minutes, Infuse through 0.2 micron filter.Indications:Encount er for antineoplastic chemotherapy,Squamous cell carcinoma of cervix (HCC) Start Infusion 09/06/2024 11:15 AM EST 200 mg 226 mL/hr documented in this encounter
--- OUTSIDE RECORDS SUMMARY | 2024-09-19 23:24 | External Medical Summary | Summary of Care ---
Author Name Unknown Organization [facility] Address [address] [place] [address] Phone [phone] Care Team Providers Care Grade Tamper Name Role Phone Unavailable Primary Care Provider Unavailabl e Encounter Details Date Type Department Care Team (Late st Contact Info) Description 09/06/2024 Orders Only Hematology/Oncology [facility] [place] 200 [facility] [place] [phone] Chitra Bass MD 200 [facility] [place] [address] Allergies No known active allergiesdocumented as of [...] No 06/07/2024 Does the household have a [facility] source of income? (Household - for ages [...] EST Hospital Encounter OR [place], Operating Room, [facility] - 4th Floor [address] [place] [address] [place] [phone] Armond Drew MD 400 [place] [address] 09/08/2024 9:00 AM EST - 09/08/2024 9:52 AM EST Surgery OR [facility], Operating Room, [facility] - 4th Floor 400 [facility] [place] [phone] Armond Drew [facility] 400 [facility] [place] [id number] INSERT TUNNELED CENTRAL VENOUS ACCESS WITH SUBQ PORT 09/11/2024 9:00 AM EST Scheduled Telephone Palliative Medicine, [facility] 400 [facility] 5th [place] [address] Fl, Nurse Palliative Medicine [facility] 5th 400 [facility] [place] [address] 09/12/2024 10:00 AM EST Laboratory Laboratory [address] [place] [phone] [place], [address] [place] [address] 09/13/2024 9:00 AM EST Office Visit Hematology/Oncolog y [facility] [place] [address] [place] [phone] Angela Carranza CRNP 400 [facility] [place] [address] 09/13/2024 9:30 AM EST Hem/Onc Treatment Hematology/Oncolog y Treatment, [place] [address] [place] [address] Nori, Chair 8 Hem Onc [address] [place] [address] 09/13/2024 9:30 AM EST Office Visit Palliative Medicine [facility] 200 [facility], [place] [address] Kaye Augustine MD [address] [place] [address] [place] [address] Scheduled Procedures Name Priority Associated Diagnoses Date/Ti [...]
--- OUTSIDE RECORDS SUMMARY | 2024-09-19 23:24 | External Medical Summary | Summary of Care ---
Author Name Unknown Organization [facility] Address [address] [place] [address] Phone [phone] Care Team Providers Care Travel Physical Therapist Name Role Phone Unavailable Primary Care Provider Unavailabl e Reason for Visit * Reason Onset Date Comments Information 09/06/2024 Encounter Details Date Type Department Care Team (Late st Contact Info) Description 09/06/2024 Telephone Hematology/Oncology Treatment, [place] [address] [place] [address] Chitra Bass MD 200 [place] [address] Information Allergies No known active allergiesdocumented as [...] No 06/07/2024 Does the household have a [facility] source of income? (Household - for [...] 11:00 AM EST Office Visit Palliative Medicine [facility] [address] [place] [address] Kaye Augustine MD 400 [place] [address] Palliative Medicine Outpatient Consult Note 09/08/2024 9:00 AM EST Hospital Encounter OR [facility], Operating Room, [facility] - 4th Floor 400 [place] [phone] Armond Drew MD 400 [place] [address] 09/08/2024 9:00 AM EST - 09/08/2024 9:52 AM EST Surgery OR [facility], Operating Room, [facility] - 4th Floor [address] [place] [phone] Armond Drew MD [address] [place] [address] INSERT TUNNELED CENTRAL VENOUS ACCESS WITH SUBQ PORT 09/12/2024 10:00 AM EST Laboratory Laboratory [address] [place] [phone] [place], [address] [place] [address] 09/13/2024 9:00 AM EST Office Visit Hematology/Oncolog y [place] [address] [place] [address] Angela Carranza CRNP [address] [place] [address] 09/13/2024 9:30 AM EST Hem/Onc Treatment Hematology/Oncolog y Treatment, [place] [address] [place] [address] Nori, Chair 8 Hem Onc [place] [place] [address] Scheduled Orders Name Type Priority Associated Diagnoses [...]
--- OUTSIDE RECORDS SUMMARY | 2024-09-19 23:24 | External Medical Summary | Summary of Care ---
Author Name Unknown Organization [facility] Address [address] [place] [address] Phone [phone] Care Team Providers Care Hospital Admissions Clerk Name Role Phone Unavailable Primary Care Provider Unavailabl e Encounter Details Date Type Department Care Team (Late st Contact Info) Description 09/06/2024 Orders Only Hematology/Oncology Treatment, [place] [address] [facility] [place] [phone] Chitra Bass MD 200 [place] [address] Squamous cell carcinoma of cervix (HCC)* Allergies [...] No 06/07/2024 Does the household have a [facility] source of income? (Household - [...] AM EST Hem/Onc Treatment Hematology/Oncolog y Treatment, [place] [address] [place] [address] [place], Chair 10 Hem Onc [facility] 200 [facility] [place], [place] [address] Arrived 09/06/2024 11:00 AM EST Office Visit Palliative Medicine [facility] [place] [address] [place], [place] [phone] Kaye Augustine MD [address] [place] [address] Arrived 09/08/2024 1:26 PM EST Hospital Encounter OR [facility], Operating Room, [facility] - 4th Floor [address] [place] [phone] Armond Drew MD [address] [place] [address] 09/08/2024 1:26 PM EST - 09/08/2024 2:18 PM EST Surgery OR [facility], Operating Room, [facility] - 4th Floor [address] [place] [phone] Armond Drew MD [address] [place] [address] INSERT TUNNELED CENTRAL VENOUS ACCESS WITH SUBQ PORT 09/12/2024 10:00 AM EST Laboratory Laboratory [address] [place] [address] [place] [phone] [address] [place] [address] 09/13/2024 9:00 AM EST Office Visit Hematology/Oncolog y [facility] Nori [place] [address] [place], [place] [phone] Angela Carranza CRNP [address] [place] [address] 09/13/2024 9:30 AM EST Hem/Onc Treatment Hematology/Oncolog y Treatment, [place] [address] [place] [address] Nori, Chair 8 Hem Onc Scenery [address] [place], [place] [address] Scheduled Orders Name Type Priority Associated Diagnoses Orde r Schedule HCG QUALITATIVE, URINE Lab STAT Squamous cell carcinoma of cervix (HCC) Every Week for 52 Occurrences starting 09/06/2024 until 09/06/2025, 1 completed BETA-HCG, QUANTITATIVE Lab STAT Squamous cell carcinoma [...] Not on filedocumented as of this encounter Results * (ABNORMAL) HCG QUALITATIVE, URINE (09/06/2024 8:19 AM EST) HCG Qualitative, Urine Positive(A ) Negative 09/06/2024 8:43 AM EST [facility] Comment:Results rechecked. Urine Urine specimen obtained by clean catch procedure / Unknown Non-blood Collection / Unknown 09/06/2024 8:19 AM EST 09/06/2024 8:19 AM EST Chitra Bass MD LAB URINE ORDERABLES Fin al Result Performing Organization Address City/State/[facility] Co de Phone Number [facility] [address] [place] [address] documented in this encounter Visit Diagnoses Diagnosis Squamous cell carcinoma of cervix (HCC)- Primary Malignant neoplasm of cervix uteri, unspecified site Squamous cell carcinoma of cervix (HCC) Malignant neoplasm of cervix uteri, unspecified site documented in this encounter
--- OUTSIDE RECORDS SUMMARY | 2024-09-19 23:24 | External Medical Summary | Summary of Care ---
Author Name Unknown Organization [facility] Address [address] [place] [address] Phone [phone] Care Team Providers Care Thermocouple Tester Name Role Phone Unavailable Primary Care Provider Unavailabl e Reason for Visit * Reason Comments NEW PATIENT * Evaluate & Treat - Unlimited Visits (Within 3 days (urgent)) - Authorized Specialty Diagnoses / Procedures Referred By Sujit t Referred To Contact Hospice and Palliative Medicine / Palliative Medicine Diagnoses Squamous cell carcinoma of cervix (HCC) Chitra Bass MD [address] [place] [address] Phone: tel: fax: Referral ID Status Reason Start Date Expiration Date Visits Requested Visits Authorized [id number] Authorized Specialty Services Required 08/31/2024 999 [id number] Encounter Details Date Type Department Care Team (Late st Contact Info) Description 09/06/2024 11:00 AM EST Office Visit Palliative Medicine [facility] [address] [place] [phone] Kaye Augustine MD [address] [place] [address] [place] [address] Cancer related pain*; Therapeutic opioid induced constipation Allergies No known active allergiesdocumented as of this encounter (statuses as of 09/06/2024) Medications traMADol HCl 50 MG Oral Tablet (Ultram) Take 1 Tablet by mouth every 6 hours as needed for Pain, Moderate. 30 Tablet 5 Active Ibuprofen 600 MG Oral Tablet (Motrin)Indicatio ns:Pelvic pain in female Take 1 tablet every [...] oxyCODONE HCl 5 MG Oral Tablet (Oxy IR)Indications:Ca ncer related pain Take 1 Tablet by mouth every 4 hours as needed for Pain, Severe. 30 Tablet 5 Active Senna 8.6 MG Oral TabletIndications [...] AM EST documented as of this encounter Patient Instructions * Patient Instructions* Kaye Augustine MD - 09/06/2024 9:21 AM EST Our Palliative Medicine Clinic is [...] needed. You can contact our office at [phone], which is our clinic in [place], or you can message us on [employer]. If you have an emergency outside of these hours, we recommend calling your primary care clinic, Oncology office, or going to the ER if you have a medical emergency. For pain Use the oxycodone 5mg as needed every FOUR hours for pain. Keep note of how often you use it. You can also take Tylenol 500mg tablets, take 2 tablets THREE times a day maximum STOP Ibuprofen For bowels Use Miralax 1 cap daily to keep stools soft Use Senna 1-2 tablets at night to give a stimulant effect If not going every other day or so, let us know Our nurse Emi will call you Wednesday to check in documented in this encounter Progress Notes * Kaye Augustine MD - 09/06/2024 9:36 AM EST Images from the original note were not included. Palliative Medicine Outpatient Consult Note [facility] Palliative Medicine Outreach [address] [place] [address] Name: Luanne Farrell Date: 09/06/2024 Referring Provider: Chitra Bass MD Reason for Consult: Goals of care; Pain and symptom management Patient accompanied by mother, history obtained from pt and mother HPI: Luanne Farrell is a 44 year old female with a primary diagnosis of cervical cancer, HPV positive, with concern for left ureteral involvement and shelby mets in the pelvic sidewalls. She met with Registered Respiratory Technician onc and they recommended against surgery, plan is for chemoradiation for locally advanced disease. She is currently experiencing pain in the pelvic region, as well as severe constipation. Eager to start her tx, which is starting today. Palliative symptoms: Pain: 9/10 currently Located at: lower pelvic region Currently taking: Ibuprofen 600mg and Tylenol 500mg every 3 hours Quality:Deep ache Severity: 9/10 at worst, best has been 7/10 Duration: constant Context: known cancer Modifying factors: nothing helps it Associated sx: no Nausea/Vomiting: no Appetite: no Constipation: YES - usually going every 2-3 days, stools are loose, has been using Miralax 3x per day to go Confusion: no Sleep issues: wakes up hourly due to pain or anxiety Dyspnea: no Mood issues: has been anxious before tx started but now feeling better Falls: no Other: Functional Status: - Palliative Performance Scale: 90% - Activities of Daily Living: (bolded items indicate areas of independence) 6/6 BADL (transfer, toilet, continence, bathe, dress self, feed self) 7/7 IADL (meds, transport, telephone, shop, housekeeping, meal prep, money management) - Ambulates: Unassisted SHx: Family Support: Has a and 2 kids, age 22 and 24, son lives in [place], daughter in [place] works as an loom technician. 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 Eyes: anicteric, sclera and conjunctiva normal. Neck: no stridor Chest: normal respiratory effort Abdominal: nondistended Extremities: no edema Neuro: alert, oriented to person, place, and time Psych: normal mood and affect Data Review: External notes reviewed: - Reviewed notes from Dr Bass, 08/28/24, plan is to do tx with chemo and immunotherapy - Reviewed notes from nursing, pts b-hcg was positive on urine test but this is likely a false positive as she is not sexually active and had her period recently. Will have lab b-hcg for future. Lab / Imaging Results: Cr 1.2, mildly elevated 09/06/2024 Information obtained from mother for collateral history Discussion with other team members: I discussed patient with Hem Onc staff about her case Decision-making Capacity: Does Patient have Decisional Capacity? y Does Patient have a Healthcare Agent? Y, family Advanced Care Planning: Deferred due to timing and location (seen in infusion center) ASSESSMENT/PLAN: Luanne Farrell is a/an 44 year [...] Drug Monitoring Program in compliance with the [place] regulations before prescribing a controlled substance. Controlled substance agreement reviewed and completed, signed by myself and patient. Copy given to patient and kept in office records. For bowels, monitor after chemo. Use Miralax daily as needed. Added Senna 1-2 tab at night Does not need SW/HH/BH referral Follow up in 1-2 weeks, nurse call in 1 weeks. Pt is possibly able to do video visits. Next visit with me. Thank you for this consult. We appreciate the opportunity to take part in the care of your patient. Note routed back to referring provider Chitra Bass MD and PCP No primary care provider on file. I spent a total of 45 minutes on the date of service in preparation, delivery, and documentation ofthe care provided to Luanne Farrell excluding any time spent in the performance of separately billedservices. Kaye Augustine MD [facility] Palliative Medicine [phone] documented in this encounter Plan of Treatment Upcoming Encounters Date Type Department Care Team (Late st Contact Info) Description 09/08/2024 9:00 AM EST Hospital Encounter OR [facility], Operating Room, [facility] - 4th Floor [address] [place], [place] [address] [address] Armond Drew MD [address] [place] [address] 09/08/2024 9:00 AM EST - 09/08/2024 9:52 AM EST Surgery OR [facility], Operating Room, [facility] - peoples hospital Floor [address] [place], [place] [address] [phone] Armond Drew MD [address] [place] [address] INSERT TUNNELED CENTRAL VENOUS ACCESS WITH SUBQ PORT 09/11/2024 9:00 AM EST Scheduled Telephone Palliative Medicine, [address] [place] [address] Fl, Nurse Palliative Medicine [address] [place] [address] 09/12/2024 10:00 AM EST Laboratory Laboratory [address] [place] [phone] [place] [address] 09/13/2024 9:00 AM EST Office Visit Hematology/Oncolog y Scenery [facility] [address] [place], [place] [phone] Angela Carranza CRNP [address] [place] [address] 09/13/2024 9:30 AM EST Hem/Onc Treatment Hematology/Oncolog y Treatment, [place] 200 [facility], [place] [phone] Nori, Chair 8 Hem Onc [facility] 200 [facility] [place], [place] [address] 09/13/2024 9:30 AM EST Office Visit Palliative Medicine [facility] [address], [place] [phone] Kaye Augustine MD [address] [place] [address] 09/19/2024 9:30 AM EST Laboratory Laboratory [address] [place] [phone] [address] [place] [address] 09/20/2024 9:30 AM EST Hem/Onc Treatment Hematology/Oncolog y Treatment, [place] 200 [facility], [place] [phone] Nori, Chair 2 Hem Onc [facility] 200 [facility] [place], [place] [address] 09/26/2024 9:30 AM EST Laboratory Laboratory [address] [place] [phone] [place] [address] 09/27/2024 9:30 AM EST Office Visit Hematology/Oncolog y [facility] [place] [address] [place] [address] Chitra Bass MD 200 [facility], [place] [address] 09/27/2024 10:00 AM EST Hem/Onc Treatment Hematology/Oncolog y Treatment, [place] 200 [facility], [place] [phone] 10/03/2024 9:30 AM EDT Laboratory Laboratory [address] [place] [address] [place] [address] 10/04/2024 9:30 AM EDT Hem/Onc Treatment [facility]olog [facility] Treatment, [place] [facility] [phone] Scheduled Procedures Name Priority Associated Diagnoses Date/Ti [...] pain- Primary Neoplasm related pain (acute) (chronic) Therapeutic opioid induced constipation Squamous cell carcinoma of cervix (HCC) Malignant neoplasm of cervix uteri, unspecified site documented in this encounter
--- OUTSIDE RECORDS SUMMARY | 2024-09-19 23:24 | External Medical Summary | Summary of Care ---
Author Name Unknown Organization [facility] Address [address] [place] [address] Phone [phone] Care Team Providers Care Manufacturing Accountant Name Role Phone Unavailable Primary Care Provider Unavailabl e Encounter Details Date Type Department Care Team (Late st Contact Info) Description 09/06/2024 Orders Only Hematology/Oncology [facility] [place] 200 [facility] [place] [phone] Chitra Bass MD [address] [facility] [place] [address] Squamous cell carcinoma of cervix (HCC)* Allergies [...] No 06/07/2024 Does the household have a [facility] source of income? (Household - for [...] Care Team (Latest Contact Info) Description 09/08/2024 9:00 AM EST Hospital Encounter OR [facility], Operating Room, [facility] - 4th Floor [address] [place] [phone] Armond Drew MD [address] [place] [address] 09/08/2024 9:00 AM EST - 09/08/2024 9:52 AM EST Surgery OR [facility], Operating Room, [facility] - 4th Floor [address] [place] [phone] Armond Drew MD [address] [place] [address] INSERT TUNNELED CENTRAL VENOUS ACCESS WITH SUBQ PORT 09/12/2024 10:00 AM EST Laboratory Laboratory [address] [place] [phone] [place] [address] 09/13/2024 9:00 AM EST Office Visit Hematology/Oncolog y Scenery [place] [address] [place] [phone] Angela Carranza CRNP [address] [place] [address] 09/13/2024 9:30 AM EST Hem/Onc Treatment Hematology/Oncolog y Treatment, [place] [address] [place] [address] Nori, Chair 8 Hem Onc [facility] 200 [facility] [place] [address] Scheduled Procedures Name Priority Associated Diagnoses Date/Ti [...]
--- OUTSIDE RECORDS SUMMARY | 2024-09-19 23:24 | External Medical Summary | Summary of Care ---
Author Name Unknown Organization [facility] Address [address] [place] [address] Phone [phone] Care Team Providers Care Service Center Assistant Name Role Phone Unavailable Primary Care Provider Unavailabl e Reason for Visit * Reason Comments Outpatient Testing Encounter Details Date Type Department Care Team (Late st Contact Info) Description 09/06/2024 8:20 AM EST Laboratory Laboratory Scenery [facility] [address] [place] [phone] [place], Lab Scenery [address] [place] [address] Squamous cell carcinoma of cervix (HCC) Allergies [...] 11:00 AM EST Office Visit Palliative Medicine [facility] [address] [place] [address] Kaye Augustine MD [address] [place] [address] Arrived 09/08/2024 9:00 AM EST Hospital Encounter OR [facility], Operating Room, [facility] - 4th Floor [address] [place] [phone] Armond Drew MD [address] [place] [address] 09/08/2024 9:00 AM EST - 09/08/2024 9:52 AM EST Surgery OR [facility], Operating Room, [facility] - 4th Floor [address] [place] [phone] Armond Drew MD [address] [place] [address] INSERT TUNNELED CENTRAL VENOUS ACCESS WITH SUBQ PORT 09/12/2024 10:00 AM EST Laboratory Laboratory [address] [place] [phone] [place], [address] [place] [address] 09/13/2024 9:00 AM EST Office Visit Hematology[facility]colog [facility] [place] [address] [place] [phone] Angela Carranza CRNP [address] [place] [address] 09/13/2024 9:30 AM EST Hem/Onc Treatment Hematology/Oncolog y Treatment, [place] [address] [place] [address] Nori, Chair 8 Hem Onc Scenery 200 [facility] [place] [address] Pending Results Name Type Priority Associated Diagnoses [...] K/uL 09/06/2024 8:55 AM EST LABORATORY [facility] 56-02 Neutrophils % 60.0 40.0 - 75.0 % 09/06/2024 8:55 AM EST [facility]ORY [facility] 56-02 Lymphocytes % 21.0 18.0 - 42.0 % 09/06/2024 8:55 AM EST [facility] 56-02 Monocytes % 5.0 1.0 - 11.0 % 09/06/2024 8:55 AM EST [facility] 56-02 Eosinophils % 13.0(H) 0.0 - 6.0 % 09/06/2024 8:55 AM EST [facility] 56-02 Basophils % 1.0 0.0 - 2.0 % 09/06/2024 8:55 AM EST [facility] 56-02 Absolute Neutrophils 12.50(H) 1.80 - 7.70 K/uL 09/06/2024 8:55 AM EST LAB[facility]ATORY [facility] 56-02 Absolute Lymphocytes 4.37 1.00 - 4.80 K/uL 09/06/2024 8:55 AM EST [facility] 56-02 Absolute Monocytes 1.04 0.00 - 1.10 K/uL 09/06/2024 8:55 AM EST LABORATORY [facility] 56-02 Absolute Eosinophils 2.71(H) 0.00 - 0.70 K/uL 09/06/2024 8:55 AM EST LABORATORY [facility] 56-02 Absolute Basophils 0.21(H) 0.00 - 0.20 K/uL 09/06/2024 8:55 AM EST [facility] 56-02 nRBCs 09/06/2024 8:55 AM EST [facility] 56-02 Reactive Lymphocytes Present(A ) None Seen 09/06/2024 8:55 AM EST [facility] 56-02 Blood Venous blood specimen / Unknown Venipuncture / Unknown 09/06/2024 8:19 AM EST 09/06/2024 8:19 AM EST Chitra Bass MD LAB BLOOD ORDERABLES Fin al Result [facility] 56 [address] [place] [address] * (ABNORMAL) HCG QUALITATIVE, URINE (09/06/2024 8:19 AM EST) HCG Qualitative, Urine Positive(A ) Negative 09/06/2024 8:43 AM EST [facility] Comment:Results rechecked. Urine Urine specimen obtained by clean catch procedure / Unknown Non-blood Collection / Unknown 09/06/2024 8:19 AM EST 09/06/2024 8:19 AM EST Chitra Bass MD LAB URINE ORDERABLES Fin al Result [facility] 56 [address] [place] [address] * DIFFERENTIAL, AUTOMATED (09/06/2024 8:19 AM EST) Blood Venous blood specimen / Unknown Venipuncture / Unknown 09/06/2024 8:19 AM EST 09/06/2024 8:19 AM EST Chitra Bass MD LAB BLOOD ORDERABLES Fin al Result [facility] 56 [address] [place] [address] * (ABNORMAL) CBC (09/06/2024 8:19 AM EST) WBC 20.83(H) 4.00 - 10.80 K/uL 09/06/2024 8:55 AM EST [facility] RBC 4.04 3.85 - 5.15 M/uL 09/06/2024 8:55 AM [facility] 56-02 HGB 12.4 12.0 - 15.3 g/dL 09/06/2024 8:55 AM [facility] 56- HCT 38.5 36.0 - 45.2 % 09/06/2024 8:55 AM [facility] 56- MCV 95.3 81.5 - 97.5 fL 09/06/2024 8:55 AM [facility] 56- MCH 30.7 27.0 - 34.0 pg 09/06/2024 8:55 AM [facility] 56-02 MCHC 32.2 32.0 - 36.0 g/dL 09/06/2024 8:55 AM [facility] 56-02 RDW 13.5 11.5 - 15.5 % 09/06/2024 8:55 AM [facility] 56-02 PLT 479(H) 140 - 400 K/uL 09/06/2024 8:55 AM [facility] 56- MPV 10.3 6.6 - 11.1 fL 09/06/2024 8:55 AM [facility] 56- Blood Venous blood specimen / Unknown Venipuncture / Unknown 09/06/2024 8:19 AM EST 09/06/2024 8:19 AM EST Chitra Bass MD LAB BLOOD ORDERABLES Fin al Result [facility] 56-02 [address] [place] [address] * MAGNESIUM (09/06/2024 8:19 AM EST) Magnesium 2.1 1.5 - 2.6 mg/dL 09/06/2024 8:48 AM [facility] 56-02 Blood Venous blood specimen / Unknown Venipuncture / Unknown 09/06/2024 8:19 AM EST 09/06/2024 8:19 AM EST Chitra Bass MD LAB BLOOD ORDERABLES Fin al Result [facility] [address] [place] [address] * (ABNORMAL) COMPREHENSIVE METABOLIC PANEL (09/06/2024 8:19 AM EST) BUN 13 6 - 20 mg/dL 09/06/2024 8:48 AM [facility] 56 CREATININE 1.2(H) 0.5 - 1.0 mg/dL 09/06/2024 8:48 AM [facility] 56 EGFR 57(L) >=60 mL/min 09/06/2024 8:48 AM [facility] 56 Comment:eGFR is calculated b ased on the CKD-EPI 2020 equation. SODIUM 135 135 - 146 mmol/L 09/06/2024 8:48 AM [facility] 56 POTASSIUM 4.1 3.5 - 5.1 mmol/L 09/06/2024 8:48 AM [facility] 56- CHLORIDE 99 98 - 107 mmol/L 09/06/2024 8:48 AM [facility] 56- CO2 22 22 - 32 mmol/L 09/06/2024 8:48 AM [facility] 56 ANION GAP 14 7 - 15 mmol/L 09/06/2024 8:48 AM [facility] 56- GLUCOSE 96 70 - 120 mg/dL 09/06/2024 8:48 AM [facility] 56 Albumin 3.6(L) 3.8 - 5.0 g/dL 09/06/2024 8:48 AM [facility] 56- AST 13 10 - 35 U/L 09/06/2024 8:48 AM [facility] 56- Alkaline Phosphatase 94 35 - 130 U/L 09/06/2024 8:48 AM [facility] 56- Bilirubin, Total <0.2 <=1.2 mg/dL 09/06/2024 8:48 AM [facility] 56- CALCIUM 9.5 8.4 - 10.2 mg/dL 09/06/2024 8:48 AM [facility] 56- Protein 7.6 6.0 - 8.3 g/dL 09/06/2024 8:48 AM [facility] ALT <5(L) 10 - 35 U/L 09/06/2024 8:48 AM EST [facility] Blood Venous blood specimen / Unknown Venipuncture / Unknown 09/06/2024 8:19 AM EST 09/06/2024 8:19 AM EST us Chitra Bass MD LAB BLOOD ORDERABLES Fin al Result [facility] [address] [place] [address] documented in this encounter Visit Diagnoses Diagnosis Squamous cell carcinoma of cervix (HCC) Malignant neoplasm of cervix uteri, unspecified site Squamous cell carcinoma of cervix (HCC) Malignant neoplasm of cervix uteri, unspecified site documented in this encounter
--- OUTSIDE RECORDS SUMMARY | 2024-09-19 23:25 | External Medical Summary | Summary of Care ---
Author Name Unknown Organization [facility] Address [address] [place] [address] Phone [phone] Care Team Providers Care Deputy Sheriff Court Services Name Role Phone Unavailable Primary Care Provider Unavailabl e Reason for Visit * Reason Onset Date Comments Precert Future 08/29/2024 Cisplatin/ RT +k eytruda Encounter Details Date Type Department Care Team (Late st Contact Info) Description 08/29/2024 Telephone Hematology/Oncology Treatment, [place] [address] [place] [address] Chitra Bass MD [address] [place] [address] Precert Future (Cisplatin/ RT +keytruda) Allergies No known active allergiesdocumented as of this encounter (statuses as of 09/01/2024) Medications traMADol HCl 50 MG Oral Tablet [...] needed for Nausea. 39 Tablet 5 Active documented as of this encounter (statuses as of 09/01/2024) Active Problems Problem Noted Date Diagnosed Date Encounter for antineoplastic chemotherapy 2024 Squamous cell carcinoma of cervix 07/31/2024 Tobacco use documented as of this encounter (statuses as of 09/01/2024) Resolved Problems Problem Noted Date Diagnosed Date Resolved Date Encounter for supervision of other normal 01/31/2002 04/26/2002 Overview (11/26/2015): ICD-10 update of inactive term documented as of this encounter (statuses as of 09/01/2024) Social History Tobacco Use Types Packs/Day Years [...] Miscellaneous Notes * Telephone Encounter - Gary Long RN - 09/01/2024 4:16 PM EST Scheduling- Please also schedule patient for the followin/18 - Labs in [facility] "CBCD,CMP,Mag,Urine Preg" 09/13 - Provider visit at 9AM (ok to be with 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 They are scheduling her first radiation on 09/05 @ 3:55pm.I did make them aware of mediport insertion date of 09/08. Called patient, she would like to have labs completed the day of treatment, is aware she will need to come 1 hour early. Message sent to scheduling regarding chair time. Scheduling- I spoke with patient and she is aware of times, please schedule her the following on 09/06 : - Labs @ 8:30 "CBCD,CMP, Mag, Urine Preg" - 6 HR Treatment "C1,D1 Cisplatin/Keytruda" ([place]). * Telephone Encounter - Gary Long RN - 09/01/2024 2:45 PM EST Referral is entered. TT sent to [facility] to get scheduled. * Telephone Encounter - Gary Long RN - 08/31/2024 12:42 PM EST Education completed. Hep B Labs/Baseline Labs completed. TT sent to Rad/Onc to make them aware we are awaiting referral and patient will be ready. N:S- please notify [facility] once referral is back . * Telephone Encounter - Amanda Jerome [facility] - 08/30/2024 1:17 PM EST Hello, [place] plan post treatment hydration has been adjusted per below. Amanda Jerome PharmD, [facility] Coordinator, Acute Pharmacy Services Hematology/Oncology [phone] 08/30/2024, 1:18 PM * Telephone Encounter - Malorie Owen, RN - 08/29/2024 9:38 AM EST Order received for weekly cisplatin/ RT, patient will also get keytruda. [place] plan built and routed for signature. Waiting for auth. Consent signed 08/28/24. Education visit 08/31/24. Patient needs hep B labs. TT sent to [facility] rad/onc to confirm when they will be ready to start. [place]: please update post hydration- per Dr Bass, would like 1L NSS with 10mEq KCl and 1g mag. Thanks! documented in this encounter Plan of Treatment Upcoming Encounters Date Type Department Care Team (Late st Contact Info) Description 09/06/2024 8:20 AM EST Laboratory Laboratory [facility] 200 [facility] [place] [phone] Nori, Lab [address] [place] [address] 09/06/2024 9:30 AM EST Hem/Onc Treatment Hematology/Oncology Treatment, [address] [phone] Nori, Chair 10 Hem Onc [address] [place] [address] 09/06/2024 11:00 AM EST Office Visit Palliative Medicine [facility] [place] [address] [facility] [phone] Kaye Augustine MD [address] [place] [address] [place] [address] Scheduled Orders Name Type Priority Associated Diagnoses Orde r Schedule CBC WITH WBC DIFFERENTIAL Lab STAT Squamous cell carcinoma of cervix (HCC) Every Week for 25 Occurrences starting 08/29/2024 until 08/29/2025, 1 completed COMPREHENSIVE METABOLIC PANEL Lab STAT Squamous cell carcinoma of cervix (HCC) Every Week for 25 Occurrences starting 08/29/2024 until 08/29/2025, 1 completed MAGNESIUM Lab STAT Squamous cell carcinoma of cervix (HCC) Every Week for 25 Occurrences starting 08/29/2024 until 08/29/2025, 1 completed TSH WITH FREE T4 IF INDICATED Lab STAT Squamous cell carcinoma of cervix (HCC) Every 3 Weeks for 17 Occurrences starting 08/29/2024 until 08/29/2025, 1 completed Health Maintenance Due Date Last Done Comments [...] filedocumented as of this encounter Results * TSH WITH FREE T4 IF INDICATED (08/31/2024 11:00 AM EST) TSH 1.48 0.27 - 4.20 uIU/mL 08/31/2024 5:29 PM EST LAB[facility]ATORY [facility] Blood Venous blood specimen / Unknown Venipuncture / Unknown 08/31/2024 11:00 AM EST 08/31/2024 11:00 AM EST Chitra Bass MD LAB BLOOD ORDERABLES Fin al Result [facility] [address] [place] [address] * MAGNESIUM (08/31/2024 11:00 AM EST) Magnesium 2.0 1.5 - 2.6 mg/dL 08/31/2024 11:31 AM EST [facility] 5602 Blood Venous blood specimen / Unknown Venipuncture / Unknown 08/31/2024 11:00 AM EST 08/31/2024 11:00 AM EST Chitra Bass MD LAB BLOOD ORDERABLES Fin al Result [facility] 5[address] [place] [address] * (ABNORMAL) COMPREHENSIVE METABOLIC PANEL (08/31/2024 11:00 AM EST) BUN 13 6 - 20 mg/dL 08/31/2024 11:31 AM [facility] 56- CREATININE 1.2(H) 0.5 - 1.0 mg/dL 08/31/2024 11:31 AM [facility] 56- EGFR 59(L) >=60 mL/min 08/31/2024 11:31 AM [facility] 56-02 Comment:eGFR is calculated b ased on the CKD-EPI 2020 equation. SODIUM 135 135 - 146 mmol/L 08/31/2024 11:31 AM [facility] 56- POTASSIUM 4.1 3.5 - 5.1 mmol/L 08/31/2024 11:31 AM EST [facility] 56- CHLORIDE 100 98 - 107 mmol/L 08/31/2024 11:31 AM EST [facility] 56- CO2 22 22 - 32 mmol/L 08/31/2024 11:31 AM [facility] 56-02 ANION GAP 13 7 - 15 mmol/L 08/31/2024 11:31 AM [facility] 56-02 GLUCOSE 99 70 - 120 mg/dL 08/31/2024 11:31 AM [facility] 56-02 Albumin 3.6(L) 3.8 - 5.0 g/dL 08/31/2024 11:31 AM [facility] 56-02 AST 11 10 - 35 U/L 08/31/2024 11:31 AM [facility] 56-02 Alkaline Phosphatase 83 35 - 130 U/L 08/31/2024 11:31 AM [facility] 56-02 Bilirubin, Total 0.3 <=1.2 mg/dL 08/31/2024 11:31 AM [facility] 56-02 CALCIUM 9.4 8.4 - 10.2 mg/dL 08/31/2024 11:31 AM [facility] 5602 Protein 7.8 6.0 - 8.3 g/dL 08/31/2024 11:31 AM [facility] 5602 ALT 6(L) 10 - 35 U/L 08/31/2024 11:31 AM [facility] 5602 Blood Venous blood specimen / Unknown Venipuncture / Unknown 08/31/2024 11:00 AM EST 08/31/2024 11:00 AM EST Chitra Bass MD LAB BLOOD ORDERABLES Fin al Result [facility] 56-[address] [place] [address] * HEPATITIS B CORE ANTIBODIES IGG AND IGM (08/31/2024 11:00 AM EST) Hepatitis B Core Antibodies IgG and IgM Negative Negative 08/31/2024 5:42 PM EST [facility]ORY [facility] Blood Venous blood specimen / Unknown Venipuncture / Unknown 08/31/2024 11:00 AM EST 08/31/2024 11:00 AM EST Chitra Bass MD LAB BLOOD ORDERABLES Fin al Result [facility]ATORY [facility] [address] [place] [address] * HEPATITIS B SURFACE ANTIGEN (08/31/2024 11:00 AM EST) Hepatitis B Surface Antigen Negative Negative 08/31/2024 5:42 PM EST [facility]ORY [facility] Blood Venous blood specimen / Unknown Venipuncture / Unknown 08/31/2024 11:00 AM EST 08/31/2024 11:00 AM EST us Chitra Bass MD LAB BLOOD ORDERABLES Fin al Result Performing Organization Address [facility] Co de Phone Number LABORATORY [facility] [address] [place] [address] * HEPATITIS B SURFACE ANTIBODY (08/31/2024 11:00 AM EST) Hepatitis B Surface Antibody, Quantitative <3.5 mIU/mL 08/31/2024 5:42 PM EST LAB[facility]ORY [facility] Hepatitis B Surface Antibody, Qualitative Negative 08/31/2024 5:42 PM EST LAB[facility]ORY [facility] Hepatitis B Surface Antibody, Interpretation NOT immune to Hepatitis B Virus 08/31/2024 5:42 PM EST LAB[facility]ORY [facility] Comment: POSITIVE: >=11.5 mIU/mL INDETERMINATE: 8.5-<11.5 mIU/mL NEGATIVE: <8.5 mIU/mL Blood Venous blood specimen / Unknown Venipuncture / Unknown 08/31/2024 11:00 AM EST 08/31/2024 11:00 AM EST us Chitra Bass MD LAB BLOOD ORDERABLES Fin al Result Performing Organization Address [facility] Co de Phone Number LAB[facility]ATORY [facility] [address] [place] [address] documented in this encounter Visit Diagnoses Diagnosis Squamous cell carcinoma of cervix (HCC)- Primary Malignant neoplasm of cervix uteri, unspecified site documented in this encounter
--- OUTSIDE RECORDS SUMMARY | 2024-09-19 23:25 | External Medical Summary ---
Author Name Unknown Address Unknown Organization K09:[facility] [address] [place] [address] Laboratory Report Ordering Provider Test Date Status TIRSO FELTON 09/06/2024 08:19:15 Final Observation Date Value Abnormality Reference (Units ) Status BUN 09/06/2024 08:19:15 13 6-20 (mg/dL) Final Creatinine 09/06/2024 08:19:15 1.2 Above high normal 0.5-1.0 (mg/dL) Final Glomerular filtration rate/1.73 sq M.predicted [Volume Rate/Area] in Serum, Plasma or Blood by Creatinine-based formula (CKD-EPI) 09/06/2024 08:19:15 57 Below low normal >=60 (mL/min) Final eGFR is calculated based on the CKD-EPI 2020 equation. Sodium 09/06/2024 08:19:15 135 135-146 (m mol/L) Final Potassium 09/06/2024 08:19:15 4.1 3.5-5.1 (m mol/L) Final Cl 09/06/2024 08:19:15 99 98-107 (mm ol/L) Final CO2 09/06/2024 08:19:15 22 22-32 (mmo l/L) Final Anion gap 09/06/2024 08:19:15 14 7-15 (mmol /L) Final Glucose 09/06/2024 08:19:15 96 70-120 (mg /dL) Final Albumin 09/06/2024 08:19:15 3.6 Below low normal 3.8 -5.0 (g/dL) Final AST (Aspartate aminotransferase) 09/06/2024 08:19:15 13 10-35 (U/L) Fin al Alk Phos 09/06/2024 08:19:15 94 35-130 (U/ L) Final Bilirubin, Total 09/06/2024 08:19:15 <0.2 <=1 .2 (mg/dL) Final Calcium 09/06/2024 08:19:15 9.5 8.4-10.2 ( mg/dL) Final Protein 09/06/2024 08:19:15 7.6 6.0-8.3 (g /dL) Final ALT (Alanine aminotransferase) 09/06/2024 08:19:15 <5 Below low normal 10-35 (U/L) Final Performing Location [facility] [place]- 02 - [address] [place] [address]
--- OUTSIDE RECORDS SUMMARY | 2024-09-19 23:25 | External Medical Summary | Summary of Care ---
Author Name Unknown Organization [facility] Address [address] [place] [address] Phone [phone] Care Team Providers Care Creel Selector Name Role Phone Unavailable Primary Care Provider Unavailabl e Reason for Visit * Reason Onset Date Comments Precert Future 08/29/2024 Cisplatin/ RT +k eytruda Encounter Details Date Type Department Care Team (Late st Contact Info) Description 08/29/2024 Telephone Hematology/Oncology Treatment, [place] [address] [place] [address] Chitra Bass MD [address] [place] [address] Precert Future (Cisplatin/ RT +keytruda) Allergies No known active allergiesdocumented as of this encounter (statuses as of 09/04/2024) Medications traMADol HCl 50 MG Oral Tablet [...] as of this encounter (statuses as of 09/04/2024) Active Problems Problem Noted Date Diagnosed Date Encounter for antineoplastic chemotherapy 2024 Squamous cell carcinoma of cervix 07/31/2024 Tobacco use documented as of this encounter (statuses as of 09/04/2024) Resolved Problems Problem Noted Date Diagnosed Date Resolved Date Encounter for supervision of other normal 01/31/2002 04/26/2002 Overview (11/26/2015): ICD-10 update of inactive term documented as of this encounter (statuses as of 09/04/2024) Social History Tobacco Use Types Packs/Day Years [...] patient for the followin/18 - Labs in [facility] "CBCD,CMP,Mag,Urine Preg" 09/13 - Provider visit at 9AM (ok to be with 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 They are scheduling her first [...] EST Referral is entered. TT sent to [facility] to get scheduled. * Telephone Encounter - Gary Long RN - 08/31/2024 12:42 PM EST Education completed. Hep B Labs/Baseline Labs completed. TT sent to Rad/Onc to make them aware we are awaiting referral and patient will be ready. N:S- please notify [facility] Rad [facility] once referral is back . * Telephone Encounter - Amanda Jerome [facility] - 08/30/2024 1:17 PM EST Hello, [place] plan post treatment hydration has been adjusted per below. Amanda Jerome PharmD, [facility] Coordinator, Acute Pharmacy Services Hematology/Oncology [phone] 08/30/2024, 1:18 PM * Telephone Encounter - Malorie Owen, RN - 08/29/2024 9:38 AM EST Order received for weekly cisplatin/ RT, patient will also get keytruda. [place] plan built and routed for signature. Waiting for auth. Consent signed 08/28/24. Education visit 08/31/24. Patient needs hep B labs. TT sent to [facility] rad/onc to confirm when they will be ready to start. [place]: please update post hydration- per Dr Bass, would like 1L NSS with 10mEq KCl and 1g mag. Thanks! documented in this encounter Plan of Treatment Upcoming Encounters Date Type Department Care Team (Late st Contact Info) Description 09/06/2024 8:20 AM EST Laboratory Laboratory [facility] 200 [facility] [place] [phone] Nori, Lab [address] [place] [address] 09/06/2024 9:30 AM EST Hem/Onc Treatment Hematology/Oncology Treatment, [address] [phone] Nori, Chair 10 Hem Onc [address] [place] [address] 09/06/2024 11:00 AM EST Office Visit Palliative Medicine [facility] [place] [address] [facility] [place] [phone] Kaye Augustine MD [address] [place] [address] [place] [address] Scheduled Orders Name Type Priority Associated Diagnoses [...] LAB BLOOD ORDERABLES Fin al Result [facility]ATORY [facility] [address] [place] [address] * MAGNESIUM (08/31/2024 11:00 AM EST) Magnesium 2.0 1.5 - 2.6 mg/dL 08/31/2024 11:31 AM EST [facility] 5602 Blood Venous blood specimen / Unknown Venipuncture / Unknown 08/31/2024 11:00 AM EST 08/31/2024 11:00 AM EST Chitra Bass MD LAB BLOOD ORDERABLES Fin al Result [facility] 5[address] [place] [address] * (ABNORMAL) COMPREHENSIVE METABOLIC PANEL (08/31/2024 11:00 AM EST) BUN 13 6 - 20 mg/dL 08/31/2024 11:31 AM [facility] 56- CREATININE 1.2(H) 0.5 - 1.0 mg/dL 08/31/2024 11:31 AM [facility] 56- EGFR 59(L) >=60 mL/min 08/31/2024 11:31 AM [facility] 56-02 Comment:eGFR is calculated b ased on the CKD-EPI 2020 equation. SODIUM 135 135 - 146 mmol/L 08/31/2024 11:31 AM [facility] 56- POTASSIUM 4.1 3.5 - 5.1 mmol/L 08/31/2024 11:31 AM EST [facility] 56- CHLORIDE 100 98 - 107 mmol/L 08/31/2024 11:[address] AM [address] [facility] 56- CO2 22 22 - 32 mmol/L 08/31/2024 11:31 AM [facility] 56-02 ANION GAP 13 7 - 15 mmol/L 08/31/2024 11:31 AM [facility] 56-02 GLUCOSE 99 70 - 120 mg/dL 08/31/2024 11:31 AM [facility] 56-02 Albumin 3.6(L) 3.8 - 5.0 g/dL 08/31/2024 11:31 AM [facility] 56-02 AST 11 10 - 35 U/L 08/31/2024 11:31 AM [facility] 56-02 Alkaline Phosphatase 83 35 - 130 U/L 08/31/2024 11:31 AM [facility] 56-02 Bilirubin, Total 0.3 <=1.2 mg/dL 08/31/2024 11:31 AM [facility] 56-02 CALCIUM 9.4 8.4 - 10.2 mg/dL 08/31/2024 11:31 AM [facility] 5602 Protein 7.8 6.0 - 8.3 g/dL 08/31/2024 11:31 AM [facility] 5602 ALT 6(L) 10 - 35 U/L 08/31/2024 11:31 AM [facility] 5602 Blood Venous blood specimen / Unknown Venipuncture / Unknown 08/31/2024 11:00 AM EST 08/31/2024 11:00 AM EST Chitra Bass MD LAB BLOOD ORDERABLES Fin al Result [facility] 56-[address] [place] [address] * HEPATITIS B CORE ANTIBODIES IGG AND IGM (08/31/2024 11:00 AM EST) Hepatitis B Core Antibodies IgG and IgM Negative Negative 08/31/2024 5:42 PM EST [facility] Blood Venous blood specimen / Unknown Venipuncture / Unknown 08/31/2024 11:00 AM EST 08/31/2024 11:00 AM EST Chitra Bass MD LAB BLOOD ORDERABLES Fin al Result [facility] [address] [place] [address] * HEPATITIS B SURFACE ANTIGEN (08/31/2024 11:00 AM EST) Hepatitis B Surface Antigen Negative Negative 08/31/2024 5:42 PM EST [facility] Blood Venous blood specimen / Unknown Venipuncture / Unknown 08/31/2024 11:00 AM EST 08/31/2024 11:00 AM EST us Chitra Bass MD LAB BLOOD ORDERABLES Fin al Result Performing Organization Address [facility] Co de Phone Number LABORATORY [facility] [address] [place] [address] * HEPATITIS B SURFACE ANTIBODY (08/31/2024 11:00 AM EST) Hepatitis B Surface Antibody, Quantitative <3.5 mIU/mL 08/31/2024 5:42 PM EST [facility] Hepatitis B Surface Antibody, Qualitative Negative 08/31/2024 5:42 PM EST [facility] Hepatitis B Surface Antibody, Interpretation NOT immune to Hepatitis B Virus 08/31/2024 5:42 PM EST [facility] Comment: POSITIVE: >=11.5 mIU/mL INDETERMINATE: 8.5-<11.5 mIU/mL NEGATIVE: <8.5 mIU/mL Blood Venous blood specimen / Unknown Venipuncture / Unknown 08/31/2024 11:00 AM EST 08/31/2024 11:00 AM EST us Chitra Bass MD LAB BLOOD ORDERABLES Fin al Result Performing Organization Address City/[facility] Co de Phone Number LAB[facility]ATORY [facility] [address] [place] [address] documented in this encounter Visit Diagnoses Diagnosis Squamous cell carcinoma of cervix (HCC)- Primary Malignant neoplasm of cervix uteri, unspecified site documented in this encounter
--- OUTSIDE RECORDS SUMMARY | 2024-09-19 23:25 | External Medical Summary ---
Author Name Unknown Address Unknown Organization K09:[facility] [address] Laboratory Report Ordering Provider Test Date Status TIRSO FELTON 09/06/2024 08:19:15 Final Observation Date Value Abnormality Reference (Units ) Status Magnesium 09/06/2024 08:19:15 2.1 1.5-2.6 (m g/dL) Final Performing Location [facility] [address]
--- OUTSIDE RECORDS SUMMARY | 2024-09-19 23:25 | External Medical Summary | Summary of Care ---
Author Name Unknown Organization [facility] Address [address] [place] [address] Phone [phone] Care Team Providers Care Linotype Mechanic Name Role Phone Unavailable Primary Care Provider Unavailabl e Encounter Details Date Type Department Care Team (Late st Contact Info) Description 09/01/2024 Telephone Hematology/Oncology [place] [address] [place] [phone] Chitra Bass MD [address] [facility] [place] [address] Allergies No known active allergiesdocumented as of [...] encounter Miscellaneous Notes * Telephone Encounter - Sandra Mike OSA - 09/01/2024 3:13 PM EST IR VENOUS ACCESS MEDIPORT [IRMEDIPORT] (Order [id number] documented in this encounter Plan of Treatment Upcoming Encounters Date Type Department Care Team (Late st Contact Info) Description 09/06/2024 8:20 AM EST Laboratory Laboratory [place] [address] [place] [address] Nori, Lab [facility] 200 [facility] [place] [address] 09/06/2024 9:30 AM EST Hem/Onc Treatment Hematology/Oncology Treatment, [place] 200 [place] [address] Nori, Chair [address] Hem On[address] [place], [place] [phone] 09/06/2024 11:00 AM EST Office Visit Palliative Medicine [facility] [address] [facility] [place] [address] Kaye Augustine MD [address] [place] [address] Health Maintenance Due Date Last Done Comments [...]
--- OUTSIDE RECORDS SUMMARY | 2024-09-19 23:25 | External Medical Summary ---
Author Name Unknown Address Unknown Organization K09:[facility] [place] [address] Laboratory Report Ordering Provider Test Date Status TIRSO FELTON 09/06/2024 08:19:15 Final Observation Date Value Abnormality Reference (Units ) Status WBC, Total 09/06/2024 08:19:15 20.83 Above high normal 4 .00-10.80 (K/uL) Final RBC 09/06/2024 08:19:15 4.04 3.85-5.15 (M/uL) Final Hemoglobin 09/06/2024 08:19:15 12.4 12.0-15.3 (g/dL) Final HCT 09/06/2024 08:19:15 38.5 36.0-45.2 (%) Final MCV 09/06/2024 08:19:15 95.3 81.5-97.5 (fL) Final MCH 09/06/2024 08:19:15 30.7 27.0-34.0 (pg) Final MCHC 09/06/2024 08:19:15 32.2 32.0-36.0 (g/dL) Final RDW 09/06/2024 08:19:15 13.5 11.5-15.5 (%) Final Platelets 09/06/2024 08:19:15 479 Above high normal 14 0-400 (K/uL) Final MPV 09/06/2024 08:19:15 10.3 6.6-11.1 ( fL) Final Performing Location [facility] [place] [address]
--- OUTSIDE RECORDS SUMMARY | 2024-09-19 23:25 | External Medical Summary | Summary of Care ---
Author Name Unknown Organization [facility] Address [address] [place] [address] Phone [phone] Care Team Providers Care Radiation Oncology Therapist Name Role Phone Unavailable Primary Care Provider Unavailabl e Reason for Visit * Reason Onset Date Comments Precert Future 08/29/2024 Cisplatin/ RT +k eytruda Encounter Details Date Type Department Care Team (Late st Contact Info) Description 08/29/2024 Telephone Hematology/Oncology Treatment, [place] [address] [place] [address] Chitra Bass MD [address] [place] [address] Precert Future (Cisplatin/ RT +keytruda) Allergies No [...] encounter Miscellaneous Notes * Telephone Encounter - Silvano Shine OSA - 09/04/2024 7:59 AM EST Appointment scheduled as requested * Telephone Encounter - Gary Long RN - 09/01/2024 4:16 PM EST Scheduling- Please also schedule patient for the followin/18 - Labs in [place] "CBCD,CMP,Mag,Urine Preg" 09/13 - Provider visit at 9AM (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 They are scheduling her first [...] EST Referral is entered. TT sent to [facility] to get scheduled. * Telephone Encounter - Gary Long RN - 08/31/2024 12:42 PM EST Education completed. Hep B Labs/Baseline Labs completed. TT sent to Rad/Onc to make them aware we are awaiting referral and patient will be ready. N:S- please notify [facility] Rad Onc once referral is back . * Telephone Encounter - Amanda Jerome [facility] - 08/30/2024 1:17 PM EST Hello, [place] plan post treatment hydration has been adjusted per below. Amanda Jerome PharmD, [facility] Coordinator, Acute Pharmacy Services Hematology/Oncology [phone] 08/30/2024, 1:18 PM * Telephone Encounter - Malorie Owen RN - 08/29/2024 9:38 AM EST Order received for weekly cisplatin/ RT, patient will also get keytruda. [place] plan built and routed for signature. Waiting for auth. Consent signed 08/28/24. Education visit 08/31/24. Patient needs hep B labs. TT sent to [facility] rad/onc to confirm when they will be ready to start. [place]: please update post hydration- per Dr Bass, would like 1L NSS with 10mEq KCl and 1g mag. Thanks! documented in this encounter Plan of Treatment Upcoming Encounters Date Type Department Care Team (Late st Contact Info) Description 09/06/2024 8:20 AM EST Laboratory Laboratory [facility] [address] [place] [phone] Nori, Lab Scenery [address] [facility] [place] [address] 09/06/2024 9:30 AM EST Hem/Onc Treatment Hematology/Oncology Treatment, [place] [address] [place] [phone] Nori, Chair 10 Hem Onc Scenery [address] [place] [address] 09/06/2024 11:00 AM EST Office Visit Palliative Medicine [facility] 200 [facility], [place] [phone] Kaye Augustine MD 400 [facility] [place] [id number] 09/12/2024 10:00 AM EST Laboratory Laboratory [address] [place] [phone] [place], Lab [address] [place] [address] 09/13/2024 9:00 AM EST Office Visit [facility]ematology[facility]Oncology [facility] 200 [facility] [phone] Angela Carranza CRNP 400 [place] [id number] 09/13/2024 9:30 AM EST Hem/Onc Treatment Hematology/Oncology Treatment, [place] 200 [facility], [place] [address] Nori, Chair 8 Hem Onc [address], [place] [address] Scheduled Orders Name Type Priority Associated Diagnoses [...] 4.20 uIU/mL 08/31/2024 5:29 PM EST LAB[facility]ORY [facility] Blood Venous blood specimen / Unknown Venipuncture / Unknown 08/31/2024 11:00 AM EST 08/31/2024 11:00 AM EST Chitra Bass MD LAB BLOOD ORDERABLES Fin al Result LAB[facility]ATORY [facility] [address] [place] [address] * MAGNESIUM (08/31/2024 11:00 AM EST) Magnesium 2.0 1.5 - 2.6 mg/dL 08/31/2024 11:31 AM EST LABORATORY [facility] 56-02 Blood Venous blood specimen / Unknown Venipuncture / Unknown 08/31/2024 11:00 AM EST 08/31/2024 11:00 AM EST Chitra Bass MD LAB BLOOD ORDERABLES Fin al Result [facility] [address] [place], [place] [id number] * (ABNORMAL) COMPREHENSIVE METABOLIC PANEL (08/31/2024 11:00 AM EST) BUN 13 6 - 20 mg/dL 08/31/2024 11:31 AM [facility] 56 CREATININE 1.2(H) 0.5 - 1.0 mg/dL 08/31/2024 11:31 AM [facility] 56 EGFR 59(L) >=60 mL/min 08/31/2024 11:31 AM [facility] 56 Comment:eGFR is calculated b ased on the CKD-EPI 2020 equation. SODIUM 135 135 - 146 mmol/L 08/31/2024 11:31 AM [facility] 56 POTASSIUM 4.1 3.5 - 5.1 mmol/L 08/31/2024 11:31 AM [facility] 56 CHLORIDE 100 98 - 107 mmol/L 08/31/2024 11:31 AM [facility] 56 CO2 22 22 - 32 mmol/L 08/31/2024 11:31 AM [facility] 56 ANION GAP 13 7 - 15 mmol/L 08/31/2024 11:31 AM [facility] 56- GLUCOSE 99 70 - 120 mg/dL 08/31/2024 11:31 AM [facility] 56- Albumin 3.6(L) 3.8 - 5.0 g/dL 08/31/2024 11:31 AM [facility] 56- AST 11 10 - 35 U/L 08/31/2024 11:31 AM [facility] 56 Alkaline Phosphatase 83 35 - 130 U/L 08/31/2024 11:31 AM [facility] 56 Bilirubin, Total 0.3 <=1.2 mg/dL 08/31/2024 11:31 AM [facility] 56- CALCIUM 9.4 8.4 - 10.2 mg/dL 08/31/2024 11:31 AM EST [facility] 56-02 Protein 7.8 6.0 - 8.3 g/dL 08/31/2024 11:31 AM EST [facility] 56-02 ALT 6(L) 10 - 35 U/L 08/31/2024 11:31 AM EST [facility] 56-02 Blood Venous blood specimen / Unknown Venipuncture / Unknown 08/31/2024 11:00 AM EST 08/31/2024 11:00 AM EST Chitra Bass MD LAB BLOOD ORDERABLES Fin al Result [facility] 56-02 [address] [place] [address] * HEPATITIS B CORE ANTIBODIES IGG AND IGM (08/31/2024 11:00 AM EST) Hepatitis B Core Antibodies IgG and IgM Negative Negative 08/31/2024 5:42 PM EST LAB[facility]ATORY [facility] Blood Venous blood specimen / Unknown Venipuncture / Unknown 08/31/2024 11:00 AM EST 08/31/2024 11:00 AM EST Chitra Bass MD LAB BLOOD ORDERABLES Fin al Result [facility]ATORY [facility] [address] [place] [address] * HEPATITIS B SURFACE ANTIGEN (08/31/2024 11:00 AM EST) Hepatitis B Surface Antigen Negative Negative 08/31/2024 5:42 PM EST [facility] Blood Venous blood specimen / Unknown Venipuncture / Unknown 08/31/2024 11:00 AM EST 08/31/2024 11:00 AM EST Chitra Bass MD LAB BLOOD ORDERABLES Fin al Result [facility] [address] [place] [address] * HEPATITIS B SURFACE ANTIBODY (08/31/2024 11:00 AM EST) Hepatitis B Surface Antibody, Quantitative <3.5 mIU/mL 08/31/2024 5:42 PM EST LAB[facility]ORY [facility] Hepatitis B Surface Antibody, Qualitative Negative 08/31/2024 5:42 PM EST LAB[facility] Hepatitis B Surface Antibody, Interpretation NOT immune to Hepatitis B Virus 08/31/2024 5:42 PM EST LAB[facility] Comment: POSITIVE: >=11.5 mIU/mL INDETERMINATE: 8.5-<11.5 mIU/mL NEGATIVE: <8.5 mIU/mL Blood Venous blood specimen / Unknown Venipuncture / Unknown 08/31/2024 11:00 AM EST 08/31/2024 11:00 AM EST Chitra Bass MD LAB BLOOD ORDERABLES Fin al Result LAB[facility]ATORY [facility] [address] [place] [address] documented in this encounter Visit Diagnoses Diagnosis Squamous cell carcinoma of cervix (HCC)- Primary Malignant neoplasm of cervix uteri, unspecified site documented in this encounter
--- OUTSIDE RECORDS SUMMARY | 2024-09-19 23:25 | External Medical Summary | Summary of Care ---
Author Name Unknown Organization [facility] Address [address] [place] [address] Phone [phone] Care Team Providers Care Incident Response Manager Name Role Phone Unavailable Primary Care Provider Unavailabl e Reason for Visit * Reason Onset Date Comments Medication Refill 09/01/2024 Encounter Details Date Type Department Care Team (Late st Contact Info) Description 09/01/2024 Refill Hematology/Oncology [facility] 200 [facility] [place] [phone] Chitra Bass MD 200 [facility] [place] [address] Squamous cell carcinoma of cervix (HCC)* Allergies No known active allergiesdocumented as of this encounter (statuses as of 09/03/2024) Medications traMADol HCl 50 MG Oral Tablet [...] as of this encounter (statuses as of 09/03/2024) Active Problems Problem Noted Date Diagnosed Date Encounter for antineoplastic chemotherapy 2024 Squamous cell carcinoma of cervix 07/31/2024 Tobacco use documented as of this encounter (statuses as of 09/03/2024) Resolved Problems Problem Noted Date Diagnosed Date Resolved Date Encounter for supervision of other normal 01/31/2002 04/26/2002 Overview (11/26/2015): ICD-10 update of inactive term documented as of this encounter (statuses as of 09/03/2024) Social History Tobacco Use Types Packs/Day Years [...] Encounter - Gary Long RN - 09/01/2024 7:38 AM EST Pt requesting EMLA cream. documented in this encounter Plan of Treatment Upcoming Encounters Date Type Department Care Team (Late st Contact Info) Description 09/06/2024 8:20 AM EST Laboratory Laboratory [facility] 200 [facility] [place] [address] Nori, Lab [address] [place], [place] [address] 09/06/2024 9:30 AM EST Hem/Onc Treatment Hematology/Oncology Treatment, [address] [place] [address] Nori, Chair 10 Hem Onc [address] [place] [address] 09/06/2024 11:00 AM EST Office Visit Palliative Medicine [address] [place] [address] Kaye Augustine MD [address] [place] [address] Health Maintenance Due Date Last Done Comments [...]
--- OUTSIDE RECORDS SUMMARY | 2024-09-19 23:25 | External Medical Summary ---
Author Name Unknown Address Unknown Organization K01:LABORATORY [address] [facility] [address] Laboratory Report Ordering Provider Test Date Status TIRSO FELTON 09/06/2024 08:19:00 Final hCG can serve as a screening [...] act+Beta subunit [Units/volume] in Serum or Plasma 09/06/2024 08:19:00 11.0 Above high normal <=1.0 (mIU/mL) Final Performing Location LABORATORY [facility] - [facility] [place]. [facility] [address]
--- OUTSIDE RECORDS SUMMARY | 2024-09-19 23:25 | External Medical Summary | Summary of Care ---
Author Name Unknown Organization [facility] Address [address] [place] [address] Phone [phone] Care Team Providers Care Human Resources Safety Manager Name Role Phone Unavailable Primary Care Provider Unavailabl e Reason for Visit * Reason Onset Date Comments Appointment 09/04/2024 Encounter Details Date Type Department Care Team (Late st Contact Info) Description 09/04/2024 Telephone Hematology/Oncology Treatment, [place] 200 [place] [address] Chitra Bass MD 200 [place] [address] Appointment Allergies No known active allergiesdocumented as of [...] No 06/07/2024 Does the household have a [facility] hospital[facility] source of income? (Household - for [...] Telephone Encounter - Gary Long RN - 09/04/2024 10:[address] Padron- will consult patient at her first treatment on Wednesday. MyG sent to patient informing. documented in this encounter Plan of Treatment Upcoming Encounters Date Type Department Care Team (Late st Contact Info) Description 09/06/2024 8:20 AM EST Laboratory Laboratory [facility] 200 [facility] [place] [phone] [place], Lab [address] [facility] [place] [address] 09/06/2024 9:30 AM EST Hem/Onc Treatment Hematology/Oncology [address], [address] [phone] Nori, Chair 10 Hem Onc [address] [place] [address] 09/06/2024 11:00 AM EST Office Visit Palliative Medicine [facility] [address] [phone] Kaye Augustine MD [address] [place] [address] 09/12/2024 10:00 AM EST Laboratory Laboratory [address] [place] [phone] [place] [address] 09/13/2024 9:00 AM EST Office Visit Hematology/Oncology [facility] [place] 200 [facility] [place] [address] Angela Carranza CRNP 400 [facility] [place] [address] 09/13/2024 9:30 AM EST Hem/Onc Treatment Hematology/Oncology Treatment, [address] [address] Nori, Chair 8 Hem Onc Scenery [address] [place] [address] Health Maintenance Due Date Last Done Comments [...]
--- OUTSIDE RECORDS SUMMARY | 2024-09-19 23:25 | External Medical Summary ---
Author Name Unknown Address Unknown Organization K09:[facility]ATORY [place] [address] Laboratory Report Ordering Provider Test Date Status TIRSO FELTON 09/06/2024 08:19:35 Final Observation Date Value Abnormality Reference (Units ) Status Screen, Urine 09/06/2024 08:19:35 Positive Abnormal Negative Final Results rechecked. Performing Location [facility]AT[facility] [place] [address]
--- OUTSIDE RECORDS SUMMARY | 2024-09-19 23:25 | External Medical Summary | Summary of Care ---
Author Name Unknown Organization [facility] Address [address] [place] [address] Phone [phone] Care Team Providers Care Horticultural Agent Name Role Phone Unavailable Primary Care Provider Unavailabl e Reason for Visit * Reason Onset Date Comments Precert Future 08/29/2024 Cisplatin/ RT +k eytruda Encounter Details Date Type Department Care Team (Late st Contact Info) Description 08/29/2024 Telephone Hematology/Oncology Treatment, [place] [address] [place] [address] Chitra Bass MD 200 [place] [address] Precert Future (Cisplatin/ RT +keytruda) Allergies No [...] patient for the followin/18 - Labs in [facility] "CBCD,CMP,Mag,Urine Preg" 09/13 - Provider visit at 9AM (ok to be with [employer] CHECK[employer]) "chemo check" 09/13- 6 HR treatment at 9:30AM "Cisplatin C1,D8" * Telephone Encounter - Sandra Mike OSA - 09/01/2024 3:56 PM EST Apts added per note below * Telephone Encounter - Gary Long RN - 09/01/2024 3:14 PM EST Spoke with Malorie Coleman at [facility] Rad Onc. They are scheduling her [...] EST Referral is entered. TT sent to [facility] to get scheduled. * Telephone Encounter - Gary Long RN - 08/31/2024 12:42 PM EST Education completed. Hep B Labs/Baseline Labs completed. TT sent to Rad/Onc to make them aware we are awaiting referral and patient will be ready. N:S- please notify [facility] Rad Onc once referral is back . * Telephone Encounter - Amanda Jerome [facility] - 08/30/2024 1:17 PM EST Hello, [place] plan post treatment hydration has been adjusted per below. Amanda Jerome PharmD, [facility] Coordinator, Acute Pharmacy Services Hematology/Oncology [phone] 08/30/2024, 1:18 PM * Telephone Encounter - Malorie Owen, RN - 08/29/2024 9:38 AM EST Order received for weekly cisplatin/ RT, patient will also get keytruda. [place] plan built and routed for signature. Waiting for auth. Consent signed 08/28/24. Education visit 08/31/24. Patient needs hep B labs. TT sent to [facility] rad/onc to confirm when they will be ready to start. [place]: please update post hydration- per Dr Bass, would like 1L NSS with 10mEq KCl and 1g mag. Thanks! documented in this encounter Plan of Treatment Upcoming Encounters Date Type Department Care Team (Late st Contact Info) Description 09/06/2024 8:20 AM EST Laboratory Laboratory [facility] 200 [facility] [place] [phone] Nori, Lab [address] [place] [address] 09/06/2024 9:30 AM EST Hem/Onc Treatment Hematology/Oncology [address], [address] [phone] Nori, Chair 10 Hem Onc [address] [place] [address] 09/06/2024 11:00 AM EST Office Visit Palliative Medicine [facility] [place] 200 [facility] [phone] Kaye Augustine MD [address] [place] [address] [place] [address] Scheduled Orders Name Type Priority Associated Diagnoses [...] LAB BLOOD ORDERABLES Fin al Result [facility] [address] [place] [address] * MAGNESIUM (08/31/2024 11:00 AM EST) Magnesium 2.0 1.5 - 2.6 mg/dL 08/31/2024 11:31 AM EST [facility] 5602 Blood Venous blood specimen / Unknown Venipuncture / Unknown 08/31/2024 11:00 AM EST 08/31/2024 11:00 AM EST Chitra Bass MD LAB BLOOD ORDERABLES Fin al Result [facility] 5602 [address] [place] [address] * (ABNORMAL) COMPREHENSIVE METABOLIC PANEL (08/31/2024 11:00 AM EST) BUN 13 6 - 20 mg/dL 08/31/2024 11:31 AM [facility] 56- CREATININE 1.2(H) 0.5 - 1.0 mg/dL 08/31/2024 11:31 AM [facility] 56- EGFR 59(L) >=60 mL/min 08/31/2024 11:31 AM [facility] 56-02 Comment:eGFR is calculated b ased on the CKD-EPI 2020 equation. SODIUM 135 135 - 146 mmol/L 08/31/2024 11:31 AM [facility] 56- POTASSIUM 4.1 3.5 - 5.1 mmol/L 08/31/2024 11:31 AM EST [facility] 56- CHLORIDE 100 98 - 107 mmol/L 08/31/2024 11:31 AM EST [facility] 56- CO2 22 22 - 32 mmol/L 08/31/2024 11:31 AM [facility] 56-02 ANION GAP 13 7 - 15 mmol/L 08/31/2024 11:31 AM [facility] 56-02 GLUCOSE 99 70 - 120 mg/dL 08/31/2024 11:31 AM [facility] 56-02 Albumin 3.6(L) 3.8 - 5.0 g/dL 08/31/2024 11:31 AM [facility] 56-02 AST 11 10 - 35 U/L 08/31/2024 11:31 AM [facility] 56-02 Alkaline Phosphatase 83 35 - 130 U/L 08/31/2024 11:31 AM [facility] 56-02 Bilirubin, Total 0.3 <=1.2 mg/dL 08/31/2024 11:31 AM [facility] 56-02 CALCIUM 9.4 8.4 - 10.2 mg/dL 08/31/2024 11:31 AM [facility] 5602 Protein 7.8 6.0 - 8.3 g/dL 08/31/2024 11:31 AM [facility] 5602 ALT 6(L) 10 - 35 U/L 08/31/2024 11:31 AM [facility] 5602 Blood Venous blood specimen / Unknown Venipuncture / Unknown 08/31/2024 11:00 AM EST 08/31/2024 11:00 AM EST Chitra Bass MD LAB BLOOD ORDERABLES Fin al Result [facility] 56-[address] [place] [address] * HEPATITIS B CORE ANTIBODIES IGG AND IGM (08/31/2024 11:00 AM EST) Hepatitis B Core Antibodies IgG and IgM Negative Negative 08/31/2024 5:42 PM EST [facility] Blood Venous blood specimen / Unknown Venipuncture / Unknown 08/31/2024 11:00 AM EST 08/31/2024 11:00 AM EST Chitra Bass MD LAB BLOOD ORDERABLES Fin al Result [facility] [address] [place] [address] * HEPATITIS B SURFACE ANTIGEN (08/31/2024 11:00 AM EST) Hepatitis B Surface Antigen Negative Negative 08/31/2024 5:42 PM EST [facility] Blood Venous blood specimen / Unknown Venipuncture / Unknown 08/31/2024 11:00 AM EST 08/31/2024 11:00 AM EST us Chitra Bass MD LAB BLOOD ORDERABLES Fin al Result Performing Organization Address [facility] Co de Phone Number LAB[facility]ATORY [facility] [address] [place] [address] * HEPATITIS B SURFACE ANTIBODY (08/31/2024 11:00 AM EST) Hepatitis B Surface Antibody, Quantitative <3.5 mIU/mL 08/31/2024 5:42 PM EST [facility] Hepatitis B Surface Antibody, Qualitative Negative 08/31/2024 5:42 PM EST [facility] Hepatitis B Surface Antibody, Interpretation NOT immune to Hepatitis B Virus 08/31/2024 5:42 PM EST [facility] Comment: POSITIVE: >=11.5 mIU/mL INDETERMINATE: 8.5-<11.5 mIU/mL NEGATIVE: <8.5 mIU/mL Blood Venous blood specimen / Unknown Venipuncture / Unknown 08/31/2024 11:00 AM EST 08/31/2024 11:00 AM EST us Chitra Bass MD LAB BLOOD ORDERABLES Fin al Result Performing Organization Address [facility] Co de Phone Number [facility]ORY [facility] [address] [place] [address] documented in this encounter Visit Diagnoses Diagnosis Squamous cell carcinoma of cervix (HCC)- Primary Malignant neoplasm of cervix uteri, unspecified site documented in this encounter
--- OUTSIDE RECORDS SUMMARY | 2024-09-19 23:25 | External Medical Summary | Summary of Care ---
Author Name Unknown Organization [facility] Address [address] [place] [address] Phone [phone] Care Team Providers Care Shredded Filler Cutter Operator Name Role Phone Unavailable Primary Care Provider Unavailabl e Encounter Details Date Type Department Care Team (Late st Contact Info) Description 09/01/2024 Orders Only Hematology/Oncology Treatment, [place] [address] [place] [phone] Chitra Bass MD 200 [place] [address] Allergies No known active allergiesdocumented as of [...] Description 09/06/2024 8:20 AM EST Laboratory Laboratory End[facility] Julio [place] 200 [place] [phone] [address] [facility] [place] [address] 09/06/2024 9:30 AM EST Hem/Onc Treatment Hematology/Oncology Treatment, [place] [address] Endy [address]rew[address] [place], [place] [address] Nori, Chair 10 Hem Onc [facility] [address] [facility] [address] [place], [place] [address] 09/06/2024 11:00 AM EST Office Visit Palliative Medicine [facility] [address] [place], [place] [address] Kyae Augustine MD [address] [place] [address] Health Maintenance Due Date Last Done [...]
--- OUTSIDE RECORDS SUMMARY | 2024-09-19 23:25 | External Medical Summary ---
Author Name Unknown Address Unknown Organization K09:LABORATORY [place] 56-02 - [address] [place] [address] Laboratory Report Ordering Provider Test Date Status MIR FELTONON 09/06/2024 08:19:15 Final Observation Date Value Abnormality Reference (Units ) Status SYNC LEUKOCYTES IN BLOOD BY AUTOMATED COUNT 09/06/2024 08:19:15 20.83 Above high normal 4.00-10.80 (K/uL) Final Neutrophils/100 leukocytes in Blood by Manual count 09/06/2024 08:19:15 60.0 40.0-75.0 (%) Final Lymphocytes/100 leukocytes in Blood by Manual count 09/06/2024 08:19:15 21.0 18.0-42.0 (%) Final Monocytes/100 leukocytes in Blood by Manual count 09/06/2024 08:19:15 5.0 1.0-11.0 (%) Final Eosinophils/100 leukocytes in Blood by Manual count 09/06/2024 08:19:15 13.0 Above high normal 0.0-6.0 (%) Final Basophils/100 leukocytes in Blood by Manual count 09/06/2024 08:19:15 1.0 0.0-2.0 (%) Final Neutrophils [#/volume] in Blood by Manual count 09/06/2024 08:19:15 12.50 Above high normal 1.80-7.70 (K/uL) Final Lymphocytes [#/volume] in Blood by Manual count 09/06/2024 08:19:15 4.37 1.00-4.80 (K/uL) Final Monocytes [#/volume] in Blood by Manual count 09/06/2024 08:19:15 1.04 0.00-1.10 (K/uL) Final Eosinophils [#/volume] in Blood by Manual count 09/06/2024 08:19:15 2.71 Above high normal 0.00-0.70 (K/uL) Final Basophils [#/volume] in Blood by Manual count 09/06/2024 08:19:15 0.21 Above high normal 0.00-0.20 (K/uL) Final Nucleated erythrocytes/100 leukocytes [Ratio] in Blood by Automated count 09/06/2024 08:19:15 Final Variant lymphocytes [Presence] in Blood by Light microscopy 09/06/2024 08:19:15 Present Abnormal None Seen Final Performing Location LABORATORY [place] [address]- [address] [place] [address]
--- OUTSIDE RECORDS SUMMARY | 2024-09-19 23:25 | External Medical Summary | Summary of Care ---
Author Name Unknown Organization [facility] [address] [place] [address] Phone [phone] Care Team Providers Care Refurbish Technician Name Role Phone Unavailable Primary Care Provider Unavailabl e Encounter Details Date Type Department Care Team (Late st Contact Info) Description 09/03/2024 Orders Only Hematology/Oncology, [facility] [address] [place], [place] [phone] Chitra Bass MD 200 [place] [address] Allergies No known active allergiesdocumented as of [...] No 06/07/2024 Does the household have a [facility] source of income? (Household - for ages [...] Description 09/06/2024 8:20 AM EST Laboratory Laboratory Tysonry Nori [place] [address] [place], [place] [address] [place], Lab [address] [place] [address] 09/06/2024 9:30 AM EST Hem/Onc Treatment Hematology/Oncology Treatment, [address] [place] [phone] Nori, Chair 10 Hem Onc [address] [place] [address] 09/06/2024 11:00 AM EST Office Visit Palliative Medicine [address] [place] [phone] Kaye Augustine MD [address] [place] [address] Health Maintenance Due Date Last Done [...]
--- OUTSIDE RECORDS SUMMARY | 2024-09-19 23:25 | External Medical Summary | Summary of Care ---
Author Name Unknown Organization [facility] Address [address] [place] [address] Phone [phone] Care Team Providers Care Bulk Pigment Reducer Name Role Phone Unavailable Primary Care Provider Unavailabl e Reason for Visit * Reason Onset Date Comments Precert Future 08/29/2024 Cisplatin/ RT +k eytruda Encounter Details Date Type Department Care Team (Late st Contact Info) Description 08/29/2024 Telephone Hematology/Oncology Treatment, [place] [address] [place] [address] Chitra Bass MD 200 [place] [address] Precert Future (Cisplatin/ RT +keytruda) Allergies No [...] patient for the followin/18 - Labs in [facility] "CBCD,CMP,Mag,Urine Preg" 09/13 - Provider visit at 9AM (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 They are scheduling her [...] is entered. TT sent to [facility] to get scheduled. * Telephone Encounter - Gary Long RN - 08/31/2024 12:42 PM EST Education completed. Hep B Labs/Baseline Labs completed. TT sent to Rad/Onc to make them aware we are awaiting referral and patient will be ready. N:S- please notify [facility] Rad Onc once referral is back . * Telephone Encounter - Amanda Jerome [facility] - 08/30/2024 1:17 PM EST Hello, [place] plan post treatment hydration has been adjusted per below. Amanda Jerome PharmD, [facility] Coordinator, Acute Pharmacy Services Hematology/Oncology [phone] 08/30/2024, 1:18 PM * Telephone Encounter - Malorie Owen, RN - 08/29/2024 9:38 AM EST Order received for weekly cisplatin/ RT, patient will also get keytruda. [place] plan built and routed for signature. Waiting for auth. Consent signed 08/28/24. Education visit 08/31/24. Patient needs hep B labs. TT sent to [facility] rad/onc to confirm when they will be ready to start. [place]: please update post hydration- per Dr Bass, would like 1L NSS with 10mEq KCl and 1g mag. Thanks! documented in this encounter Plan of Treatment Upcoming Encounters Date Type Department Care Team (Late st Contact Info) Description 09/06/2024 8:20 AM EST Laboratory Laboratory [facility] 200 [facility] [place] [phone] Nori, Lab [address] [place] [address] 09/06/2024 9:30 AM EST Hem/Onc Treatment Hematology/Oncology Treatment, [address] [phone] Nori, Chair 10 Hem Onc [address] [place] [address] 09/06/2024 11:00 AM EST Office Visit Palliative Medicine [facility] [place] 200 [facility] [phone] Kaye Augustine MD [address] [place] [address] [place] [address] Scheduled Orders Name Type Priority Associated Diagnoses [...] LAB BLOOD ORDERABLES Fin al Result LAB[facility]ATORY [facility] [address] [place] [address] * MAGNESIUM (08/31/2024 11:00 AM EST) Magnesium 2.0 1.5 - 2.6 mg/dL 08/31/2024 11:31 AM EST [facility] 5602 Blood Venous blood specimen / Unknown Venipuncture / Unknown 08/31/2024 11:00 AM EST 08/31/2024 11:00 AM EST Chitra Bass MD LAB BLOOD ORDERABLES Fin al Result [facility] 5[address] [place] [address] * (ABNORMAL) COMPREHENSIVE METABOLIC PANEL (08/31/2024 11:00 AM EST) BUN 13 6 - 20 mg/dL 08/31/2024 11:31 AM [facility] 56- CREATININE 1.2(H) 0.5 - 1.0 mg/dL 08/31/2024 11:31 AM [facility] 56- EGFR 59(L) >=60 mL/min 08/31/2024 11:31 AM [facility] 56-02 Comment:eGFR is calculated b ased on the CKD-EPI 2020 equation. SODIUM 135 135 - 146 mmol/L 08/31/2024 11:31 AM [facility] 56- POTASSIUM 4.1 3.5 - 5.1 mmol/L 08/31/2024 11:31 AM EST [facility] 56- CHLORIDE 100 98 - 107 mmol/L 08/31/2024 11:31 AM EST [facility] 56- CO2 22 22 - 32 mmol/L 08/31/2024 11:31 AM [facility] 56-02 ANION GAP 13 7 - 15 mmol/L 08/31/2024 11:31 AM [facility] 56-02 GLUCOSE 99 70 - 120 mg/dL 08/31/2024 11:31 AM [facility] 56-02 Albumin 3.6(L) 3.8 - 5.0 g/dL 08/31/2024 11:31 AM [facility] 56-02 AST 11 10 - 35 U/L 08/31/2024 11:31 AM [facility] 56-02 Alkaline Phosphatase 83 35 - 130 U/L 08/31/2024 11:31 AM [facility] 56-02 Bilirubin, Total 0.3 <=1.2 mg/dL 08/31/2024 11:31 AM [facility] 56-02 CALCIUM 9.4 8.4 - 10.2 mg/dL 08/31/2024 11:31 AM [facility] 5602 Protein 7.8 6.0 - 8.3 g/dL 08/31/2024 11:31 AM [facility] 5602 ALT 6(L) 10 - 35 U/L 08/31/2024 11:31 AM [facility] 5602 Blood Venous blood specimen / Unknown Venipuncture / Unknown 08/31/2024 11:00 AM EST 08/31/2024 11:00 AM EST Chitra Bass MD LAB BLOOD ORDERABLES Fin al Result [facility] 56-[address] [place] [address] * HEPATITIS B CORE ANTIBODIES IGG AND IGM (08/31/2024 11:00 AM EST) Hepatitis B Core Antibodies IgG and IgM Negative Negative 08/31/2024 5:42 PM EST [facility] Blood Venous blood specimen / Unknown Venipuncture / Unknown 08/31/2024 11:00 AM EST 08/31/2024 11:00 AM EST Chitra Bass MD LAB BLOOD ORDERABLES Fin al Result [facility] [address] [place] [address] * HEPATITIS B SURFACE ANTIGEN (08/31/2024 11:00 AM EST) Hepatitis B Surface Antigen Negative Negative 08/31/2024 5:42 PM EST [facility] Blood Venous blood specimen / Unknown Venipuncture / Unknown 08/31/2024 11:00 AM EST 08/31/2024 11:00 AM EST us Chitra Bass MD LAB BLOOD ORDERABLES Fin al Result Performing Organization Address [facility] Co de Phone Number [facility]ORY [facility] [address] [place] [address] * HEPATITIS B SURFACE ANTIBODY (08/31/2024 11:00 AM EST) Hepatitis B Surface Antibody, Quantitative <3.5 mIU/mL 08/31/2024 5:42 PM EST [facility] Hepatitis B Surface Antibody, Qualitative Negative 08/31/2024 5:42 PM EST [facility] Hepatitis B Surface Antibody, Interpretation NOT immune to Hepatitis B Virus 08/31/2024 5:42 PM EST [facility] Comment: POSITIVE: >=11.5 mIU/mL INDETERMINATE: 8.5-<11.5 mIU/mL NEGATIVE: <8.5 mIU/mL Blood Venous blood specimen / Unknown Venipuncture / Unknown 08/31/2024 11:00 AM EST 08/31/2024 11:00 AM EST us Chitra Bass MD LAB BLOOD ORDERABLES Fin al Result Performing Organization Address City/[facility] Co de Phone Number [facility] [address] [place] [address] documented in this encounter Visit Diagnoses Diagnosis Squamous cell carcinoma of cervix (HCC)- Primary Malignant neoplasm of cervix uteri, unspecified site documented in this encounter
--- OUTSIDE RECORDS SUMMARY | 2024-09-19 23:25 | External Medical Summary | Summary of Care ---
Author Name Unknown Organization [facility] [address] [place] [address] Phone [phone] Care Team Providers Care Plant Sprayer Name Role Phone Unavailable Primary Care Provider Unavailabl e Encounter Details Date Type Department Care Team (Late st Contact Info) Description 09/03/2024 Orders Only Hematology/Oncology, [facility] [address] [place], [place] [phone] Chitra Bass MD 200 [place] [address] Allergies No known active allergiesdocumented as of [...] No 06/07/2024 Does the household have a [place] [employer] source of income? (Household - for ages [...] 8:20 AM EST Laboratory Laboratory [facility] Nori [place] [address] [place], [place] [address] Park, Lab [address] [place] [address] 09/06/2024 9:30 AM EST Hem/Onc Treatment Hematology/Oncology Treatment, [address] [place] [phone] Nori, Chair 10 Hem Onc [address] [place] [address] 09/06/2024 11:00 AM EST Office Visit Palliative Medicine [address] [place] [phone] Kaye Augustine MD [address] [place] [address] Health Maintenance Due Date Last Done [...]
--- OUTSIDE RECORDS SUMMARY | 2024-09-19 23:25 | External Medical Summary | Summary of Care ---
Author Name Unknown Organization [facility] Address [address] [place] [address] Phone [phone] Care Team Providers Care Medical Care Administrator Name Role Phone Unavailable Primary Care Provider Unavailabl e Reason for Visit * Reason Onset Date Comments Scheduling 09/05/2024 Mediport inserti on Encounter Details Date Type Department Care Team (Late st Contact Info) Description 09/05/2024 Telephone Radiology, [facility] [address] [place] [address] Samaria Cates I, GARRY Scheduling (Mediport insertion) Allergies No known active allergiesdocumented as of this encounter (statuses as of 09/05/2024) Medications traMADol HCl 50 MG Oral Tablet [...] as of this encounter (statuses as of 09/05/2024) Active Problems Problem Noted Date Diagnosed Date Encounter for antineoplastic chemotherapy 2024 Squamous cell carcinoma of cervix 07/31/2024 Tobacco use documented as of this encounter (statuses as of 09/05/2024) Resolved Problems Problem Noted Date Diagnosed Date Resolved Date Encounter for supervision of other normal 01/31/2002 04/26/2002 Overview (11/26/2015): ICD-10 update of inactive term documented as of this encounter (statuses as of 09/05/2024) Social History Tobacco Use Types Packs/Day Years [...] No 06/07/2024 Does the household have a [facility]? (Household - for [...] encounter Miscellaneous Notes * Telephone Encounter - Samaria Cates I, RN - 09/05/2024 10:34 AM EST Spoke to patient to schedule mediport insertion for 2-[address]Conway Drew performing. Eating, drinking, check-in, and arrival instructions all reviewed with patient Patient identified by: name and date of Person taught: Patient METHOD: Lecture-telephone interview PATIENT INSTRUCTIONS GIVEN: - Medication Instructions Reviewed - NPO Instructions Reviewed, pt to stop eating 8 hours prior to procedure and stop drinking 2 hoursprior to procedure. - Slate Mixer recommended Location and check-in instructions Verbalizes understanding of education: Yes Procedure date at time of Imaging Encounter: 2-14 What procedure is patient having? mediport insertion Laterality confirmed as Not Applicable Does the patient have a yellow bar? did not The Patient was given the opportunity to ask questions concerning the procedure. Signature: Samaria Cates RN 09/05/2024 documented in this encounter Plan of Treatment Upcoming Encounters Date Type Department Care Team (Latest Contact Info) Description 09/06/2024 8:20 AM EST Laboratory Laboratory [address] [place] [phone] Nori, Lab [address] [place] [address] 09/06/2024 9:30 AM EST Hem/Onc Treatment Hematology/Oncolog y Treatment[address] [place] [phone] Nori, Chair 10 Hem Onc [address] [address] 09/06/2024 11:00 AM EST Office Visit Palliative Medicine [address] [place] [phone] Kaye Augustine MD 400 [place] [address] 09/08/2024 1:26 PM EST Hospital Encounter OR [facility], Operating Room, [facility] - 4th Floor [address] [place] [address] Armond Drew MD 400 [place] [address] 09/08/2024 1:26 PM EST - 09/08/2024 2:18 PM EST Surgery OR [facility], Operating Room, [facility] - 4th Floor 400 [place] [address] Armond Drew MD [address] [place] [address] INSERT TUNNELED CENTRAL VENOUS ACCESS WITH SUBQ PORT 09/12/2024 10:00 AM EST Laboratory Laboratory [address] [place] [phone] [place], [address] [place] [address] 09/13/2024 9:00 AM EST Office Visit Hematology/Oncolog y Scenery Nori [place] [address] [place] [address] Angela Carranza CRNP [address] [place] [address] 09/13/2024 9:30 AM EST Hem/Onc Treatment Hematology/Oncolog y Treatment, [place] [address] [place] [address] Nori, Chair 8 Hem Onc [address]enery [address] [place] [address] Scheduled Procedures Name Priority Associated Diagnoses Date/Ti [...]
--- OUTSIDE RECORDS SUMMARY | 2024-09-19 23:25 | External Medical Summary | Summary of Care ---
Author Name Unknown Organization [facility] Address [address] [place] [address] Phone [phone] Care Team Providers Care Aircraft Mechanic Electrical And Radio Name Role Phone Unavailable Primary Care Provider Unavailabl e Reason for Visit * Reason Onset Date Comments Precert Future 08/29/2024 Cisplatin/ RT +k eytruda Encounter Details Date Type Department Care Team (Late st Contact Info) Description 08/29/2024 Telephone Hematology/Oncology Treatment, [place] 200 [place] [address] Chitra Bass MD 200 [place] [address] Precert Future (Cisplatin/ RT +keytruda) Allergies No [...] patient for the followin/18 - Labs in [facility] "CBCD,CMP,Mag,Urine Preg" 09/13 - Provider visit at 9AM (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 Rad Onc. They are scheduling her [...] EST Referral is entered. TT sent to [facility] to get scheduled. * Telephone Encounter - Gary Long RN - 08/31/2024 12:42 PM EST Education completed. Hep B Labs/Baseline Labs completed. TT sent to Rad/Onc to make them aware we are awaiting referral and patient will be ready. N:S- please notify [facility] Rad Onc once referral is back . * Telephone Encounter - Amanda Jerome [facility] - 08/30/2024 1:17 PM EST Hello, [place] plan post treatment hydration has been adjusted per below. Amanda Jerome PharmD, [facility] Coordinator, Acute Pharmacy Services Hematology/Oncology [phone] 08/30/2024, 1:18 PM * Telephone Encounter - Malorie Owen, RN - 08/29/2024 9:38 AM EST Order received for weekly cisplatin/ RT, patient will also get keytruda. [place] plan built and routed for signature. Waiting for auth. Consent signed 08/28/24. Education visit 08/31/24. Patient needs hep B labs. TT sent to [facility] rad/onc to confirm when they will be ready to start. [place]: please update post hydration- per Dr Bass, would like 1L NSS with 10mEq KCl and 1g mag. Thanks! documented in this encounter Plan of Treatment Upcoming Encounters Date Type Department Care Team (Late st Contact Info) Description 09/06/2024 8:20 AM EST Laboratory Laboratory [facility] 200 [facility] [place] [phone] Nori, Lab [address] [place] [address] 09/06/2024 9:30 AM EST Hem/Onc Treatment Hematology/Oncology Treatment, [address] [phone] Nori, Chair 10 Hem Onc [address] [place] [address] 09/06/2024 11:00 AM EST Office Visit Palliative Medicine [facility] [place] 200 [facility] [phone] Kaye Augustine MD [address] [place] [address] [place] [address] Scheduled Orders Name Type Priority Associated Diagnoses [...] LAB BLOOD ORDERABLES Fin al Result [facility]ORY [facility] [address] [place] [address] * MAGNESIUM (08/31/2024 11:00 AM EST) Magnesium 2.0 1.5 - 2.6 mg/dL 08/31/2024 11:31 AM EST [facility] 5602 Blood Venous blood specimen / Unknown Venipuncture / Unknown 08/31/2024 11:00 AM EST 08/31/2024 11:00 AM EST Chitra Bass MD LAB BLOOD ORDERABLES Fin al Result [facility] 5602 [address] [place] [address] * (ABNORMAL) COMPREHENSIVE METABOLIC PANEL (08/31/2024 11:00 [...] - 5.1 mmol/L 08/31/2024 11:31 AM EST [facility] 56- CHLORIDE 100 98 - 107 mmol/L 08/31/2024 11:31 AM EST [facility] 56- CO2 22 22 - 32 [...] MD LAB BLOOD ORDERABLES Fin al Result [facility] 56-[address] [place] [address] * HEPATITIS B CORE ANTIBODIES IGG AND IGM (08/31/2024 11:00 AM EST) Hepatitis B Core Antibodies IgG and IgM Negative Negative 08/31/2024 5:42 PM EST LAB[facility]ORY [facility] Blood Venous blood specimen / Unknown Venipuncture / Unknown 08/31/2024 11:00 AM EST 08/31/2024 11:00 AM EST Chitra Bass MD LAB BLOOD ORDERABLES Fin al Result [facility]ORY [facility] [address] [place] [address] * HEPATITIS B SURFACE ANTIGEN (08/31/2024 11:00 AM EST) Hepatitis B Surface Antigen Negative Negative 08/31/2024 5:42 PM EST [facility]ORY [facility] Blood Venous blood specimen / Unknown Venipuncture / Unknown 08/31/2024 11:00 AM EST 08/31/2024 11:00 AM EST us Chitra Bass MD LAB BLOOD ORDERABLES Fin al Result Performing Organization Address [facility] Co de Phone Number LAB[facility]ORY [facility] [address] [place] [address] * HEPATITIS B SURFACE ANTIBODY (08/31/2024 11:00 AM EST) Hepatitis B Surface Antibody, Quantitative <3.5 mIU/mL 08/31/2024 5:42 PM EST [facility]ORY [facility] Hepatitis B Surface Antibody, Qualitative Negative 08/31/2024 5:42 PM EST [facility] Hepatitis B Surface Antibody, Interpretation NOT immune to Hepatitis B Virus 08/31/2024 5:42 PM EST [facility] Comment: POSITIVE: >=11.5 mIU/mL INDETERMINATE: 8.5-<11.5 mIU/mL NEGATIVE: <8.5 mIU/mL Blood Venous blood specimen / Unknown Venipuncture / Unknown 08/31/2024 11:00 AM EST 08/31/2024 11:00 AM EST us Chitra Bass MD LAB BLOOD ORDERABLES Fin al Result Performing Organization Address City/[facility] Co de Phone Number [facility]ORY [facility] [address] [place] [address] documented in this encounter Visit Diagnoses Diagnosis Squamous cell carcinoma of cervix (HCC)- Primary Malignant neoplasm of cervix uteri, unspecified site documented in this encounter
--- OUTSIDE RECORDS SUMMARY | 2024-09-19 23:26 | External Medical Summary | Summary of Care ---
Author Name Unknown Organization [facility] Address [address] [facility] [place] [address] Phone [phone] Care Team Providers Care Wildlife Enforcement Major Name Role Phone Unavailable Primary Care Provider Unavailabl e Encounter Details Date Type Department Care Team (Late st Contact Info) Description 08/31/2024 Orders Only PATIENT PORTAL DO NOT DELETE THIS DEPT USED BY [place] [id number] Allergies No known active allergiesdocumented as of this encounter (statuses as of 08/31/2024) Medications traMADol HCl 50 MG Oral Tablet [...] as of this encounter (statuses as of 08/31/2024) Active Problems Problem Noted Date Diagnosed Date Encounter for antineoplastic chemotherapy 2024 Squamous cell carcinoma of cervix 07/31/2024 Tobacco use documented as of this encounter (statuses as of 08/31/2024) Resolved Problems Problem Noted Date Diagnosed Date Resolved Date Encounter for supervision of other normal 01/31/2002 04/26/2002 Overview (11/26/2015): ICD-10 update of inactive term documented as of this encounter (statuses as of 08/31/2024) Social History Tobacco Use Types Packs/Day Years [...] Care Team (Late st Contact Info) Description 08/31/2024 11:00 AM EST Pt Ed by Nurse Hematology/Oncology [place] [address] [place] [phone] Nori Nurse Hem Onc [place] [address] [place] [address] 09/13/2024 2:30 PM EST Office Visit General Surgery, [facility] [address] [place] [address] Dipak Botello MD [address] [place] [address] Health Maintenance Due Date Last Done Comments [...]
--- OUTSIDE RECORDS SUMMARY | 2024-09-19 23:26 | External Medical Summary | Summary of Care ---
Author Name Unknown Organization [facility] Address [address] [place] [address] Phone [phone] Care Team Providers Care Chain Sales Consultant Name Role Phone Unavailable Primary Care Provider Unavailabl e Reason for Referral * Precert (Within 10 days (routine)) - Pending Review Specialty Diagnoses / Procedures Referred By Contac t Referred To Contact Radiology Diagnoses Squamous cell carcinoma of cervix (HCC) Procedures IR VENOUS ACCESS MEDIPORT Chitra Bass MD [address] [place] [address] Phone: tel: fax: Referral ID Status Reason Start Date Expiration Date V isits Requested Visits Authorized [id number] Pending Review 09/08/[id number] Encounter Details Date Type Department Care Team (Late st Contact Info) Description 09/01/2024 Telephone Hematology/Oncology State Manoj Avendaño [address] [place] [phone] Chitra Bass MD [address] [id number] Allergies No known active allergiesdocumented as of [...] encounter Miscellaneous Notes * Telephone Encounter - Chandrika Alberts OSA - 09/01/2024 3:15 PM EST Consult is cancelled on 09/13/2024 due to IR getting her in sooner. * Addendum Note - Gary Madrid RN - 09/01/2024 3:11 PM ESTAddended by: GARY MADRID on: 09/01/2024 03:11 PM Modules accepted: Orders * Telephone Encounter - Gary Madrid RN - 09/01/2024 3:05 PM EST Per Le, they have availability on 09/08. Called patient, she is ok with changing to 09/08. Gen Surg- please cancel consultation on 09/13. Order for IR Mediport placed. Cancelled General Surgery Referral. * Telephone Encounter - Gary Madrid RN - 09/01/2024 2:50 PM EST Message sent to IR. * Telephone Encounter - Chandrika Alberts OSA - 09/01/2024 7:42 AM EST So far, 09/13 is the soonest with the doctor. I can check with IR and see what they have. If they have something soon, they will need a referral and an order for the port. * Telephone Encounter - Gary Madrid RN - 09/01/2024 7:19 AM EST Gen Surg- Patient will be starting chemotherapy/radiation soon. Any chance she can be seen earlier for port placement consultation/placement. Thank you? documented in this encounter Plan of Treatment Upcoming Encounters Date Type Department Care Team (Late st Contact Info) Description 09/06/2024 8:20 AM EST Laboratory Laboratory [facility] 200 [facility] [phone] Nori, Lab [address] [place] [address] 09/06/2024 9:30 AM EST Hem/Onc Treatment Hematology/Oncology Treatment, [address] [place] [phone] Nori, Chair 10 Hem Onc [address] [place] [address] 09/06/2024 11:00 AM EST Office Visit Palliative Medicine [address] [place] [phone] Kaye Augustine MD [address] [place] [address] Scheduled Orders Name Type Priority Associated Diagnoses Orde r Schedule IR VENOUS ACCESS MEDIPORT Medical Imaging Routine Squamous cell carcinoma of cervix (HCC) Expected: 09/08/2024, Expires: 09/29/2025 Health Maintenance Due Date Last Done Comments [...]
--- OUTSIDE RECORDS SUMMARY | 2024-09-19 23:26 | External Medical Summary | Summary of Care ---
Author Name Unknown Organization [facility] Address [address] [place] [address] Phone [phone] Care Team Providers Care Field Artillery Senior Sergeant Name Role Phone Unavailable Primary Care Provider Unavailabl e Reason for Visit * Reason Onset Date Comments Precert Future 08/29/2024 Cisplatin/ RT +k eytruda Encounter Details Date Type Department Care Team (Late st Contact Info) Description 08/29/2024 Telephone Hematology/Oncology Treatment, [place] [address] [place] [address] Chitra Bass MD [address] [place] [address] Precert Future (Cisplatin/ RT +keytruda) Allergies No [...] patient will be ready. N:S- please notify [facility] Rad Onc once referral is back . * Telephone Encounter - Amanda Jerome [facility] - 08/30/2024 1:17 PM EST Hello, [place] plan post treatment hydration has been adjusted per below. Amanda Jerome PharmTrudy, [facility] Coordinator, Acute Pharmacy Services Hematology/Oncology [phone] 08/30/2024, 1:18 PM * Telephone Encounter - Malorie Owen RN - 08/29/2024 9:38 AM EST Order received for weekly cisplatin/ RT, patient will also get keytruda. [place] plan built and routed for signature. Waiting for auth. Consent signed 08/28/24. Education visit 08/31/24. Patient needs hep B labs. TT sent to [facility] rad/onc to confirm when they will be ready to start. Neto: please update post hydration- per Dr Bass, would like 1L NSS with 10mEq KCl and 1g mag. Thanks! documented in this encounter Plan of Treatment Upcoming Encounters Date Type Department Care Team (Late st Contact Info) Description 09/13/2024 2:30 PM EST Office Visit General Surgery, [facility] [address] [place] [address] Dipak Botello MD [address] [facility] [place] [address] Pending Results Name Type Priority Associated Diagnoses Date /Time HEPATITIS B SURFACE ANTIBODY Lab STAT Squamous cell carcinoma of cervix (HCC) 08/31/2024 11:00 AM EST HEPATITIS B SURFACE ANTIGEN Lab STAT Squamous cell carcinoma of cervix (HCC) 08/31/2024 11:00 AM EST HEPATITIS B CORE ANTIBODIES IGG AND IGM Lab STAT Squamous cell carcinoma of cervix (HCC) 08/31/2024 11:00 AM EST TSH WITH FREE T4 IF INDICATED Lab STAT Squamous cell carcinoma of cervix (HCC) 08/31/2024 11:00 AM EST Scheduled Orders Name Type Priority Associated Diagnoses Orde r Schedule HEPATITIS B SURFACE ANTIBODY Lab STAT Squamous cell carcinoma of cervix (HCC) Expected: 08/29/2024 (Approximate), Expires: 08/29/2025 HEPATITIS B SURFACE ANTIGEN Lab STAT Squamous cell carcinoma of cervix (HCC) Expected: 08/29/2024 (Approximate), Expires: 08/29/2025 HEPATITIS B CORE ANTIBODIES IGG AND IGM Lab STAT Squamous cell carcinoma of cervix (HCC) Expected: 08/29/2024 (Approximate), Expires: 08/29/2025 CBC WITH WBC DIFFERENTIAL Lab STAT Squamous [...] Weeks for 17 Occurrences starting 08/29/2024 until 08/29/2025 Health Maintenance Due Date Last Done Comments [...] filedocumented as of this encounter Results * MAGNESIUM (08/31/2024 11:00 AM EST) Magnesium 2.0 1.5 - 2.6 mg/dL 08/31/2024 11:31 AM EST [facility] 56- Blood Venous blood specimen / Unknown Venipuncture / Unknown 08/31/2024 11:00 AM EST 08/31/2024 11:00 AM EST Chitra Bass MD LAB BLOOD ORDERABLES Fin al Result Performing Organization Address City/State/[facility] Co de Phone Number [facility] 56- [address] [place] [address] * (ABNORMAL) COMPREHENSIVE METABOLIC PANEL (08/31/2024 11:00 AM EST) BUN 13 6 - 20 mg/dL 08/31/2024 11:31 AM [facility] 56- CREATININE 1.2(H) 0.5 - 1.0 mg/dL 08/31/2024 11:31 AM [facility] 56- EGFR 59(L) >=60 mL/min 08/31/2024 11:31 AM [facility] 56- Comment:eGFR is calculated b ased on the CKD-EPI 2020 equation. SODIUM 135 135 - 146 mmol/L 08/31/2024 11:31 AM [facility] 56- POTASSIUM 4.1 3.5 - 5.1 mmol/L 08/31/2024 11:31 AM [facility] 56- CHLORIDE 100 98 - 107 mmol/L 08/31/2024 11:31 AM [facility] 56- CO2 22 22 - 32 mmol/L 08/31/2024 11:31 AM [facility] 56- ANION GAP 13 7 - 15 mmol/L 08/31/2024 11:31 AM [facility] 56- GLUCOSE 99 70 - 120 mg/dL 08/31/2024 11:31 AM [facility] 56- Albumin 3.6(L) 3.8 - 5.0 g/dL 08/31/2024 11:31 AM EST [facility] 56- AST 11 10 - 35 U/L 08/31/2024 11:31 AM EST [facility] 56- Alkaline Phosphatase 83 35 - 130 U/L 08/31/2024 11:31 AM EST [facility] 56- Bilirubin, Total 0.3 <=1.2 mg/dL 08/31/2024 11:31 AM EST [facility] 56 CALCIUM 9.4 8.4 - 10.2 mg/dL 08/31/2024 11:31 AM [facility] 56 Protein 7.8 6.0 - 8.3 g/dL 08/31/2024 11:31 AM [facility] 56 ALT 6(L) 10 - 35 U/L 08/31/2024 11:31 AM EST [facility] 56 Blood Venous blood specimen / Unknown Venipuncture / Unknown 08/31/2024 11:00 AM EST 08/31/2024 11:00 AM EST Chitra Bass MD LAB BLOOD ORDERABLES Fin al Result Performing Organization Address City/State/[facility] Co de Phone Number [facility] 56- [address] [place] [address] documented in this encounter Visit Diagnoses Diagnosis Squamous cell carcinoma of cervix (HCC)- Primary Malignant neoplasm of cervix uteri, unspecified site documented in this encounter
--- OUTSIDE RECORDS SUMMARY | 2024-09-19 23:26 | External Medical Summary | Summary of Care ---
Author Name Unknown Organization [facility] Address [address] [place] [address] Phone [phone] Care Team Providers Care Screw Cutter Name Role Phone Unavailable Primary Care Provider Unavailabl e Reason for Visit * Reason Comments Outpatient Testing Encounter Details Date Type Department Care Team (Late st Contact Info) Description 08/31/2024 12:00 PM EST Laboratory Laboratory [facility] [address] [place] [phone] [place], Lab [address] [place] [address] Squamous cell carcinoma of cervix (HCC) Allergies [...] 11:00 AM EST Office Visit Palliative Medicine [facility] [address] [place] [address] Kaye Augustine MD [address] [place] [address] [place] [address] 09/13/2024 2:30 PM EST Office Visit General Surgery, [facility] [address] [place] [address] Dipak Botello MD [address] [place] [address] Pending Results Name Type Priority Associated Diagnoses [...] of cervix (HCC) 08/31/2024 11:00 AM EST Health Maintenance Due Date Last [...] Date/Time Associated Diagnosis Comments DIFFERENTIAL, AUTOMATED STAT 08/31/2024 11:00 AM EST Squamous cell carcinoma of cervix (HCC) COMPREHENSIVE METABOLIC PANEL STAT 08/31/2024 11:00 AM EST Squamous cell carcinoma of cervix (HCC) CBC STAT 08/31/2024 11:00 AM EST Squamous cell carcinoma of cervix (HCC) CBC STAT 08/31/2024 11:00 AM EST Squamous cell carcinoma of cervix (HCC) DIFFERENTIAL, TECHNOLOGIST REVIEW Routine 08/31/2024 11:00 AM EST Squamous cell carcinoma of cervix (HCC) MAGNESIUM STAT 08/31/2024 11:00 AM EST Squamous cell carcinoma of cervix (HCC) documented in this encounter Results * (ABNORMAL) DIFFERENTIAL, TECHNOLOGIST REVIEW (08/31/2024 11:00 AM EST) WBC 20.32(H) 4.00 - 10.80 K/uL 08/31/2024 11:15 AM [facility] 56-02 Neutrophils % 71.0 40.0 - 75.0 % 08/31/2024 11:15 AM [facility] 56-02 Lymphocytes % 14.0(L) 18.0 - 42.0 % 08/31/2024 11:15 AM [facility] 56-02 Monocytes % 8.0 1.0 - 11.0 % 08/31/2024 11:15 AM [facility] 56-02 Eosinophils % 7.0(H) 0.0 - 6.0 % 08/31/2024 11:15 AM [facility] 56-02 Absolute Neutrophils 14.43(H) 1.80 - 7.70 K/uL 08/31/2024 11:15 AM [facility] 56-02 Absolute Lymphocytes 2.84 1.00 - 4.80 K/uL 08/31/2024 11:15 AM [facility] 56-02 Absolute Monocytes 1.63(H) 0.00 - 1.10 K/uL 08/31/2024 11:15 AM [facility] 56-02 Absolute Eosinophils 1.42(H) 0.00 - 0.70 K/uL 08/31/2024 11:15 AM [facility] 56-02 nRBCs 08/31/2024 11:15 AM EST [facility] 56-02 Hypersegmented Neutrophils Present(A ) None Seen 08/31/2024 11:15 AM EST [facility] 56-02 Blood Venous blood specimen / Unknown Venipuncture / Unknown 08/31/2024 11:00 AM EST 08/31/2024 11:00 AM EST Chitra Bass MD LAB BLOOD ORDERABLES Fin al Result Performing Organization Address City/[facility] Co de Phone Number [facility] 56- [address] [place] [phone] * DIFFERENTIAL, AUTOMATED (08/31/2024 11:00 AM EST) Blood Venous blood specimen / Unknown Venipuncture / Unknown 08/31/2024 11:00 AM EST 08/31/2024 11:00 AM EST Chitra Bass MD LAB BLOOD ORDERABLES Fin al Result Performing Organization Address [facility] de Phone Number [facility] 56- [address] [place] [address] * (ABNORMAL) CBC (08/31/2024 11:00 AM EST) WBC 20.32(H) 4.00 - 10.80 K/uL 08/31/2024 11:15 AM [facility] 56-02 RBC 4.13 3.85 - 5.15 M/uL 08/31/2024 11:15 AM [facility] 56-02 HGB 12.6 12.0 - 15.3 g/dL 08/31/2024 11:15 AM [facility] 56-02 HCT 38.4 36.0 - 45.2 % 08/31/2024 11:15 AM [facility] 56-02 MCV 93.0 81.5 - 97.5 fL 08/31/2024 11:15 AM EST [facility] 56- MCH 30.5 27.0 - 34.0 pg 08/31/2024 11:15 AM EST [facility] 56-02 MCHC 32.8 32.0 - 36.0 g/dL 08/31/2024 11:15 AM [facility] 56 RDW 13.4 11.5 - 15.5 % 08/31/2024 11:15 AM [facility] 56 PLT 391 140 - 400 K/uL 08/31/2024 11:15 AM [facility] 56 MPV 10.3 6.6 - 11.1 fL 08/31/2024 11:15 AM [facility] 56 Blood Venous blood specimen / Unknown Venipuncture / Unknown 08/31/2024 11:00 AM EST 08/31/2024 11:00 AM EST Chitra Bass MD LAB BLOOD ORDERABLES Fin al Result [facility] 56 [address] [place] [address] * MAGNESIUM (08/31/2024 11:00 AM EST) Magnesium 2.0 1.5 - 2.6 mg/dL 08/31/2024 11:31 AM [facility] Blood Venous blood specimen / Unknown Venipuncture / Unknown 08/31/2024 11:00 AM EST 08/31/2024 11:00 AM EST Chitra Bass MD LAB BLOOD ORDERABLES Fin al Result [facility] 56 [address] [place] [address] * (ABNORMAL) COMPREHENSIVE METABOLIC PANEL (08/31/2024 11:00 AM EST) BUN 13 6 - 20 mg/dL 08/31/2024 11:31 AM [facility] 56 CREATININE 1.2(H) 0.5 - 1.0 mg/dL 08/31/2024 11:31 AM [facility] 56- EGFR 59(L) >=60 mL/min 08/31/2024 11:31 AM [facility] 56- Comment:eGFR is calculated b ased on the CKD-EPI 2020 equation. SODIUM 135 135 - 146 mmol/L 08/31/2024 11:31 AM [facility] 56- POTASSIUM 4.1 3.5 - 5.1 mmol/L 08/31/2024 11:31 AM [facility] 56- CHLORIDE 100 98 - 107 mmol/L 08/31/2024 11:31 AM [facility] 56 CO2 22 22 - 32 mmol/L 08/31/2024 11:31 AM [facility] 56 ANION GAP 13 7 - 15 mmol/L 08/31/2024 11:31 AM [facility] 56 GLUCOSE 99 70 - 120 mg/dL 08/31/2024 11:31 AM [facility] 56 Albumin 3.6(L) 3.8 - 5.0 g/dL 08/31/2024 11:31 AM [facility] 56 AST 11 10 - 35 U/L 08/31/2024 11:31 AM [facility] 56 Alkaline Phosphatase 83 35 - 130 U/L 08/31/2024 11:31 AM [facility] 56 Bilirubin, Total 0.3 <=1.2 mg/dL 08/31/2024 11:31 AM [facility] 56 CALCIUM 9.4 8.4 - 10.2 mg/dL 08/31/2024 11:31 AM [facility] 56 Protein 7.8 6.0 - 8.3 g/dL 08/31/2024 11:31 AM [facility] 56 ALT 6(L) 10 - 35 U/L 08/31/2024 11:31 AM [facility] 56 Blood Venous blood specimen / Unknown Venipuncture / Unknown 08/31/2024 11:00 AM EST 08/31/2024 11:00 AM EST us Chitra Bass MD LAB BLOOD ORDERABLES Fin al Result [facility] [address] [place] [address] documented in this encounter Visit Diagnoses Diagnosis Squamous cell carcinoma of cervix (HCC) Malignant neoplasm of cervix uteri, unspecified site documented in this encounter
--- OUTSIDE RECORDS SUMMARY | 2024-09-19 23:26 | External Medical Summary | Summary of Care ---
Author Name Unknown Organization [facility] Address [address] [place] [address] Phone [phone] Care Team Providers Care Dietetic Intern Name Role Phone Unavailable Primary Care Provider Unavailabl e Reason for Referral * Evaluate & Treat - Unlimited Visits (Within 3 days (urgent)) - Authorized Specialty Diagnoses / Procedures Referred By Sujit alberts Referred To Contact Hospice and Palliative Medicine / Palliative Medicine Diagnoses Squamous cell carcinoma of cervix (HCC) Chitra Bass MD [address] [place] [address] Phone: tel: fax: Referral ID Status Reason Start Date Expiration Date Visits Requested Visits Authorized [id number] Authorized Specialty Services Required 08/31/2024 [id number] Question Answer Referral Priority Within 3 days (urgent) Where should this appointment be scheduled? [place] Reason for Referral: Cancer Palliative Medicine To Address: Pain & Symptom Management Referral Location Office Comments Pt with cervical cancer, will be undergoing Chemo/RT soon. I met with patient today for education regarding chemo, patient unable to sit for moderate to long periods of time, rates pain is 7/10 with advil/tylenol. Reason for Visit * Reason Onset Date Comments Advice 08/31/2024 pain Encounter Details Date Type Department Care Team (Late st Contact Info) Description 08/31/2024 Telephone Hematology/Oncology [place] [place] [place] [address] [place] [address] Chitra Bass MD 200 [facility], [place] [phone] Advice (pain) Allergies No known active allergiesdocumented as of [...] Telephone Encounter - Emi Eugene LPN - 08/31/2024 1:10 PM EST Spoke with patient Scheduled with Dr. Augustine at on 09/06 at 11am * Telephone Encounter - Gary Long RN - 08/31/2024 12:55 PM EST Referral placed per Dr. Bass. Palliative- [facility] regarding urgent referral to assist with Cancer Pain Management. * Telephone Encounter - Gary Long RN - 08/31/2024 12:[address] Bass- I met with patient today for chemo education. She has a lot of pain currently. States without use of chronic advil/tylenol she has 10/10 pain, with the use of these medications its more of6-7/10. Would you like to prescribe something for better pain management or refer to Palliative? She was given Tramadol by Lab Support Technician Onc but she hasn't tried this yet. I did advise her to try this instead. documented in this encounter Plan of Treatment Upcoming Encounters Date Type Department Care Team (Late st Contact Info) Description 09/06/2024 11:00 AM EST Office Visit Palliative Medicine [facility] [address] [facility] [address] Kaye Augustine MD [address] [place] [address] 09/13/2024 2:30 PM EST Office Visit General Surgery, [facility] [address] [place] [address] Dipak Botello MD [address] [place] [address] Scheduled Referrals Name Type Priority Associated Diagnoses Orde r Schedule PALLIATIVE CARE REFERRAL OP Referral Within 3 days (urgent) Squamous cell carcinoma of cervix (HCC) Ordered: 08/31/2024 Health Maintenance Due Date Last Done Comments [...]
--- OUTSIDE RECORDS SUMMARY | 2024-09-19 23:26 | External Medical Summary ---
Author Name Unknown Address Unknown Organization K09:[facility] [place] [address] Laboratory Report Ordering Provider Test Date Status TIRSO FELTON 08/31/2024 11:00:24 Final Observation Date Value Abnormality Reference (Units ) Status Magnesium 08/31/2024 11:00:24 2.0 1.5-2.6 (m g/dL) Final Performing Location [facility] [address]
--- OUTSIDE RECORDS SUMMARY | 2024-09-19 23:26 | External Medical Summary | Summary of Care ---
Author Name Unknown Organization [facility] Address [address] [place] [address] Phone [phone] Care Team Providers Care Plumbing Service Technician Name Role Phone Unavailable Primary Care Provider Unavailabl e Reason for Referral * Precert (Within 10 days (routine)) - Pending Review Specialty Diagnoses / Procedures Referred By Contac t Referred To Contact Radiology Diagnoses Squamous cell carcinoma of cervix (HCC) Procedures IR VENOUS ACCESS MEDIPORT Chitra Bass MD [address] [place] [address] Phone: tel: fax: Referral ID Status Reason Start Date Expiration Date V isits Requested Visits Authorized [id number] Pending Review 09/08/[phone] Encounter Details Date Type Department Care Team (Late st Contact Info) Description 09/01/2024 Telephone Hematology/Oncology State Man[place] Avendaño [address] [place] [phone] Cihtra Bass MD [address] [phone] Allergies No known active allergiesdocumented as of [...] 09/06/2024 8:20 AM EST Laboratory Laboratory [facility] 200 [facility] [address] Nori, Lab [address] [place] [address] 09/06/2024 9:30 AM EST Hem/Onc Treatment Hematology/Oncology Treatment, [address] [place] [phone] Nori, Chair 10 Hem Onc [address] [place] [address] 09/06/2024 11:00 AM EST Office Visit Palliative Medicine [address] [place] [phone] Kaye Augustine MD [address] [place] [address] Scheduled Orders Name Type Priority Associated [...]
--- OUTSIDE RECORDS SUMMARY | 2024-09-19 23:26 | External Medical Summary | Summary of Care ---
Author Name Unknown Organization [facility] Address [address] [place] [address] Phone [phone] Care Team Providers Care Traffic Monitor Specialist Name Role Phone Unavailable Primary Care Provider Unavailabl e Reason for Visit * Reason Comments Education Cisplatin/Keytruda Encounter Details Date Type Department Care Team (Late st Contact Info) Description 08/31/2024 11:00 AM EST Pt Ed by Nurse Hematology/Oncology [facility] [place] [address] [place] [phone] Nori Nurse Hem Onc [facility] [address] [facility] [place] [address] Allergies No known active allergiesdocumented as of [...] AM EST documented as of this encounter Progress Notes * Gary Long RN - 08/31/2024 12:39 PM EST Education completed. documented in this encounter Plan of Treatment Upcoming Encounters Date Type Department Care Team (Late st Contact Info) Description 09/06/2024 11:00 AM EST Office Visit Palliative Medicine [address] [place] [phone] Kaye Augustine MD [address] [facility] [place] [address] 09/13/2024 2:30 PM EST Office Visit General Surgery, [facility] [address] [place] [address] Dipak Botello MD [address] [place] [address] Health Maintenance Due Date Last Done Comments [...]
--- OUTSIDE RECORDS SUMMARY | 2024-09-19 23:26 | External Medical Summary | Summary of Care ---
Author Name Unknown Organization [facility] Address [address] [place] [address] Phone [phone] Care Team Providers Care Supervisor Plasma Name Role Phone Unavailable Primary Care Provider Unavailabl e Reason for Referral * Precert (Within 10 days (routine)) - Pending Review Specialty Diagnoses / Procedures Referred By Contac t Referred To Contact Radiology Diagnoses Squamous cell carcinoma of cervix (HCC) Procedures IR VENOUS ACCESS MEDIPORT Chitra Bass MD [address] [place] [address] Phone: tel: fax: Referral ID Status Reason Start Date Expiration Date V isits Requested Visits Authorized [id number] Pending Review 09/08/[phone] Encounter Details Date Type Department Care Team (Late st Contact Info) Description 09/01/2024 Telephone Hematology/Oncology [facility] [address] [place] [phone] Chitra Bass MD [address] [phone] Allergies No known active allergiesdocumented as of [...] Description 09/06/2024 8:20 AM EST Laboratory Laboratory [facility] 200 [facility] [place] [phone] Nori, Lab [address] [place] [address] 09/06/2024 9:30 AM EST Hem/Onc Treatment Hematology/Oncology Treatment, [address] [place] [phone] Nori, Chair 10 Hem Onc [address] [place] [address] 09/06/2024 11:00 AM EST Office Visit Palliative Medicine [address] [place] [phone] Kaye Augustine MD [address] [place] [address] Scheduled Orders Name Type Priority Associated [...]
--- OUTSIDE RECORDS SUMMARY | 2024-09-19 23:26 | External Medical Summary | Summary of Care ---
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 * Evaluate & Treat - Unlimited Visits (Within 10 days (routine)) - Authorized Specialty Diagnoses / Procedures Referred By Sujit alberts Referred To Contact Hematology/Oncology / Hematology Oncology Diagnoses Malignant neoplasm of cervix uteri, unspecified (HCC) Mary Nathan PA-C [address] [place] [facility] [address] Phone: tel: fax: Referral ID Status Reason Start Date Expiration Date Visits Requested Visits Authorized [id number] Authorized Specialty Services Required 08/18/[phone] Encounter Details Date Type Department Care Team (Late st Contact Info) Description 08/28/2024 1:00 PM EST Office Visit Hematology/Oncology Endy Julio [place] [address] [place] [phone] Chitra Bass MD [address] [place] [address] Squamous cell carcinoma of cervix (HCC)* Allergies [...] Sign Reading Time Taken Comments Blood Pressure 132/84 08/28/2024 12:47 PM EST Pulse 101 08/28/2024 12:47 PM EST Temperature 36.7 C (98.1 F) 08/28/2024 12:[address] Respiratory Rate - - Oxygen Saturation 96% 08/28/2024 12:47 PM EST Inhaled Oxygen Concentration - - Weight 58.2 kg (128 lb 4.8 oz) 08/28/2024 12:47 PM EST Height 160 cm (5' 3") 08/28/2024 12:47 PM EST Body Mass Index 22.73 08/28/2024 12:47 PM EST documented in this encounter Progress Notes * Chitra Bass MD - 08/28/2024 1:06 PM EST Outpatient Consult Note Data Source: Patient, Epic record. 08/28/2024 1:06 PM Luanne Farrell [id number] 44 year old No primary care provider on file. Chitra Bass MD Patient Encounter: HEMATOLOGY[facility]ONCOLOGY [facility] Reason for consult: CA cervix. 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 She had a Pap smear done 06/08/2024 which revealed epithelial cell abnormality, high-grade squamous intraepithelial lesion. HPV was positive. On 06/23/2024 she had ultrasound of the [...] She had a follow-up appointment with the rn surgical on 07/25/24 and examination revealed cervix with [...] cell abnormality: High-grade squamous intraepithelial lesion (HSIL, Koppel System). The process may involve the endocervix. [...] over 20 years. She drinks alcohol socially. Family history is negative for any hematologic Oncology problem Past Medical History: Diagnosis Date Squamous cell carcinoma of cervix (HCC) 07/31/2024 Tobacco use Current Outpatient Medications Medication Sig Dispense Refill traMADol HCl 50 MG Oral Tablet (Ultram) Take 1 Tablet by mouth every 6 hours as needed for Pain, Moderate. 30 Tablet 0 Ibuprofen 600 MG Oral [...] by mouth every 4 hours as needed. No current facility-administered medications for this visit. Social History Socioeconomic History Marital status: Spouse [...] Insecurity: No Food Insecurity (06/07/2024) Food Insecurity Do you need food for this week? (Adult - for ages 18 years and over): No Are you able to get enough food for your family? (Household - for ages 0-17 years): Not on file Does your family need food this week? (Household - for ages 0-17 years): Not on file Do you always have enough food for your family? (Household - for ages 0-17 years): Not on file Transportation Needs: No Transportation Needs (06/07/2024) Transportation [...] Stability Do you currently live in a correction or have no steady place to sleep [...] history Ovarian cancer No significant family history REVIEW OF SYSTEMS: General: No Fever, chills, night sweats, or weight loss. HEENT: No change in visual acuity, blurred or double vision. No epistaxis, facial pain, nasal discharge or change in hearing. Denies dysphagia, no muscosal ulceration, or sores noted. Cardiovascular: No chest pain, DEVINE, or palpitations Respiratory: No shortness of breath, cough, hemoptysis, or pleuritic chest pain Gastrointestinal: Complaining of abdominal pain, nausea, No vomiting, diarrhea, rectal pain or bleeding Genitourinary: Denies Hematuria or dysuria Musculoskeletal: No bone pain Skin: No skin rash or lesions noted Neurologic: No numbness, weakness, neuropathic pain or change in cognitive function Psychiatric: No vegetative signs of depression Endocrine: No symptoms of hypothyroidism or hyperglycemia Hematologic: No bleeding or lymph nodes noted As mentioned above, all other systems were reviewed in full and are unremarkable. Review of patient's allergies indicates: No Known Allergies PHYSICAL EXAMINATION: General Appearance: Healthy appearing patient in no acute distress BP 132/84 (BP Site: Left Arm, BP Position: Sitting, BP Cuff Size: Regular) | Pulse 101 | Temp 36.7 C (98.1 F) (Tympanic) | Ht 1.6 m (5' 3") | Wt 58.2 kg (128 lb 4.8 oz) | LMP (LMP Unknown) | BpA463% | BMI 22.73 kg/m | BSA 1.61 m Vitals were reviewed. HEENT: No oral or pharyngeal masses, ulceration or thrush noted, no sinus tenderness. Neck is supple with no thyromegaly or JVD noted. Lymph Nodes: No lymphadenopathy noted in the occipital, pre and post auricular, cervical, supra andinfraclavicular, axillary, epitrochlear, inguinal, and popliteal region. Lungs/Thorax: Clear to auscultation, no accessory muscles of respiration being used. Heart: Regular rate and rhythm, normal S1, S2. Abdomen: Soft, generalized tenderness especially in the lower abdomen, bowel sounds present, no appreciable hepatosplenomegaly, no palpable masses Extremeties: Good pulses bilaterally, no peripheral edema. ASSESSMENT: 44-year-old female who presented initially with complaint of lower abdominal pain and irregular bleeding for few months. She had a workup done including ultrasound, MRI of the pelvis and PET scan which confirmed the finding of cervical mass in large hypermetabolic lymph node metastasis to the pelvic sidewalls. Biopsies consistent with invasive squamous cell carcinoma moderately differentiated. PDL1 expression is 70%. Patient was seen by the Radiation Oncology and simulation is done. Patient haslocally advanced disease stage IIIC. Patient has locally advanced disease and will benefit with the chemotherapy plus radiation therapy.Based on the result of the recent clot keynote 18 there was a overall survival benefit by adding the pembrolizumab plus chemoradiotherapy. Discussed with the patient and family including and daughter about diagnosis and prognosis and reviewed all the available blood test, pathology, PET scan and MRI finding.. Discussed with them about the benefit, risk, side effects and toxicity of the treatment. After detailed discussion she agreed to proceed with treatment and signed the consent form. Reference for the treatment Pembrolizumab or placebo with chemoradiotherapy followed by pembrolizumab or placebo for newly diagnosed, high-risk, locally advanced cervical cancer (ENGOT-cx11/GOG-3047/KEYNOTE-A18): a randomised, double-blind, phase 3 clinical trial Camila Bull et al. The Lancet, Volume 403, Issue 55520, 1341 - 8680 I will also refer her to Surgical team for the placement of the Port-A-Cath. PLAN: As above. She will return clinic for follow-up 1 week after receiving 1st cycle of chemotherapy. The patient voiced understanding of all of the above. All questions and concerns were addressed in an apparently satisfactory manner. Chitra Bass MD (This note was completed using the dictation program Fluency Direct. As such, there may be misspellings, word substitutions, or other variations that should not change the essence of the clinical content of this encounter note. If there is need for further clarification, please direct questions to me.) documented in this encounter Nursing Notes * Karina Andre, SAND MIXER OPERATOR - 08/28/2024 12:47 PM EST Patient identifed by name and birthdate Do you have any concerns about pain management for today's visit? Yes. Patient instructed to discuss pain concerns with provider during the visit today Living Will or Advance Directive for Health Care as noted on the problem list. [facility] is a way you can talk to your provider on line through e-mail. Would you like to sign up? I can activate it for you? ALREADY ACTIVE Filed Vitals: 08/28/24 1247 BP: 132/84 Pulse: 101 Temp: 36.7 C (98.1 F) TempSrc: Tympanic SpO2: 96% Weight: 58.2 kg (128 lb 4.8 oz) Height: 1.6 m (5' 3") Patient was instructed to not get up on the exam table/exam chair until directed and assisted by their provider; patient is to remain seated in the chair/ wheelchair/ exam table/ exam chair for fall prevention and safety reasons. Patient is aware to have assistance to step down off exam table/exam chair with personnel. Patient voiced full comprehension of instructions. documented in this encounter Miscellaneous Notes * Addendum Note - Gary Madrid RN - 09/01/2024 3:11 PM ESTAddended by: GARY MADRID on: 09/01/2024 03:11 PM Modules accepted: Orders documented in this encounter Plan of Treatment Upcoming Encounters Date Type Department Care Team (Late st Contact Info) Description 09/06/2024 8:20 AM EST Laboratory Laboratory [address] [place] [phone] Nori, Lab [address] [place] [address] 09/06/2024 9:30 AM EST Hem/Onc Treatment Hematology/Oncology Treatment, [address] [place] [phone] Nori, Chair [address] Hem On[address] [place], [place] [address] 09/06/2024 11:00 AM EST Office Visit Palliative Medicine [address] [place] [phone] Kaye Augustine MD [address] [place] [address] Health Maintenance Due Date Last Done [...]
--- OUTSIDE RECORDS SUMMARY | 2024-09-19 23:26 | External Medical Summary ---
Author Name Unknown Address Unknown Organization [id number]:LABORATORY [facility] - [facility] [place] [address] Laboratory Report Ordering Provider Test Date Status MIR FELTONON 08/31/2024 11:00:24 Final Observation Date Value Abnormality Reference (Units) Status Hepatitis B virus surface Ab [Units/volume] in Serum or Plasma by Immunoassay 08/31/2024 11:00:24 <3.5 (mIU/mL) Final Hepatitis B virus surface Ab [Presence] in Serum by Immunoassay 08/31/2024 11:00:24 Negative Final HEPATITIS B SURFACE ANTIBODY, INTERPRETATION 08/31/2024 11:00:24 NOT immune to Hepatitis B Virus Final POSITIVE: >=11.5 mIU/mL
INDETERMINATE: 8.5-<11.5 mIU/mL
NEGATIVE: <8.5 mIU/mL Performing Location LABORATORY [facility] - [facility] [place] [address]
--- OUTSIDE RECORDS SUMMARY | 2024-09-19 23:26 | External Medical Summary | Summary of Care ---
Author Name Unknown Organization [facility] Address [address] [place] [address] Phone [phone] Care Team Providers Care Chronometer Assembler And Adjuster Name Role Phone Unavailable Primary Care Provider Unavailabl e Reason for Referral * Evaluate & Treat - Unlimited Visits (Within 3 days (urgent)) - Authorized Specialty Diagnoses / Procedures Referred By Sujit alberts Referred To Contact Hospice and Palliative Medicine / Palliative Medicine Diagnoses Squamous cell carcinoma of cervix (HCC) Chitra Bass MD [address] [place] [address] Phone: tel: fax: Referral ID Status Reason Start Date Expiration Date Visits Requested Visits Authorized [id number] Authorized Specialty Services Required 08/31/[phone] [...] Info) Description 08/31/2024 Telephone Hematology/Oncology Endy Julio [place] [address] [place] [phone] Chitra Bass MD [address] [facility], [place] [phone] Advice (pain) Allergies No known active allergiesdocumented [...] EST Referral placed per Dr. Bass. Palliative- [facility] regarding urgent referral to assist with Cancer [...] to Palliative? She was given Tramadol by [facility] but she hasn't tried this yet. I did advise her to try this instead. documented in this encounter Plan of Treatment Upcoming Encounters Date Type Department Care Team (Late st Contact Info) Description 09/06/2024 11:00 AM EST Office Visit Palliative Medicine [facility] [address] [place] [phone] Kaye Augustine MD [address] [place] [address] 09/13/2024 2:30 PM EST Office Visit General Surgery, [facility] [address] [place] [address] Dipak Botello MD [address] [place] [address] Scheduled Referrals Name Type Priority Associated Diagnoses [...]
--- OUTSIDE RECORDS SUMMARY | 2024-09-19 23:26 | External Medical Summary | Summary of Care ---
Author Name Unknown Organization [facility] Address [address] [place] [address] Phone [phone] Care Team Providers Care Card Lacer Name Role Phone Unavailable Primary Care Provider Unavailabl e Reason for Referral * Precert (Within 10 days (routine)) - Pending Review Specialty Diagnoses / Procedures Referred By Contac t Referred To Contact Radiology Diagnoses Squamous cell carcinoma of cervix (HCC) Procedures IR VENOUS ACCESS MEDIPORT Chitra Bass MD [address] [place] [address] Phone: tel: fax: Referral ID Status Reason Start Date Expiration Date V isits Requested Visits Authorized [id number] Pending Review 09/08/[phone] Encounter Details Date Type Department Care Team (Late st Contact Info) Description 09/01/2024 Telephone Hematology/Oncology [facility] [address] [place] [phone] Chitra Bass MD [address] [place] [address] [phone] Allergies No known active allergiesdocumented as of [...] Description 09/06/2024 8:20 AM EST Laboratory Laboratory [facility] [address] [facility] [place] [phone] Nori, Lab [address] [place] [address] 09/06/2024 9:30 AM EST Hem/Onc Treatment Hematology/Oncology Treatment, [address] [place] [phone] Nori, Chair [address] Hem On[address] [place] [address] 09/06/2024 11:00 AM EST Office Visit Palliative Medicine [address] [place] [phone] Kaye Augustine MD [address] [place] [address] Scheduled Orders Name Type Priority Associated [...]
--- OUTSIDE RECORDS SUMMARY | 2024-09-19 23:26 | External Medical Summary ---
Author Name Unknown Address Unknown Organization K01:LABORATORY [facility] [place] [place] - [address] [place] [address] Laboratory Report Ordering Provider Test Date Status TIRSO FELTON 08/31/2024 11:00:24 Final Observation Date Value Abnormality Reference (Units ) Status Hep B surface Ag 08/31/2024 11:00:24 Negative Neg ative Final Performing Location LABORATORY [facility] - [address] [place] [address]
--- OUTSIDE RECORDS SUMMARY | 2024-09-19 23:26 | External Medical Summary ---
Author Name Unknown Address Unknown Organization K01:LABORATORY [facility] [place] - [address] [facility] [address] [facility] [address] Laboratory Report Ordering Provider Test Date Status FELTONMIRTIRSO 08/31/2024 11:00:24 Final Observation Date Value Abnormality Reference (Units ) Status Hepatitis B virus core Ab [Presence] in Serum 08/31/2024 11:00:24 Negative Negative Final Performing Location LABORATORY [facility] - [address] [facility] [address]
--- OUTSIDE RECORDS SUMMARY | 2024-09-19 23:26 | External Medical Summary ---
Author Name Unknown Address Unknown Organization K09:LABORATORY [facility] - [address] [place] [address] Laboratory Report Ordering Provider Test Date Status TIRSO FELTON 08/31/2024 11:00:24 Final Observation Date Value Abnormality Reference (Units ) Status BUN 08/31/2024 11:00:24 13 6-20 (mg/dL) Final Creatinine 08/31/2024 11:00:24 1.2 Above high normal 0.5-1.0 (mg/dL) Final Glomerular filtration rate/1.73 sq M.predicted [Volume Rate/Area] in Serum, Plasma or Blood by Creatinine-based formula (CKD-EPI) 08/31/2024 11:00:24 59 Below low normal >=60 (mL/min) Final eGFR is calculated based on the CKD-EPI 2020 equation. Sodium 08/31/2024 11:00:24 135 135-146 (m mol/L) Final Potassium 08/31/2024 11:00:24 4.1 3.5-5.1 (m mol/L) Final Cl 08/31/2024 11:00:24 100 98-107 (mm ol/L) Final CO2 08/31/2024 11:00:24 22 22-32 (mmo l/L) Final Anion gap 08/31/2024 11:00:24 13 7-15 (mmol /L) Final Glucose 08/31/2024 11:00:24 99 70-120 (mg /dL) Final Albumin 08/31/2024 11:00:24 3.6 Below low normal 3.8 -5.0 (g/dL) Final AST (Aspartate aminotransferase) 08/31/2024 11:00:24 11 10-35 (U/L) Fin al Alk Phos 08/31/2024 11:00:24 83 35-130 (U/ L) Final Bilirubin, Total 08/31/2024 11:00:24 0.3 <=1 .2 (mg/dL) Final Calcium 08/31/2024 11:00:24 9.4 8.4-10.2 ( mg/dL) Final Protein 08/31/2024 11:00:24 7.8 6.0-8.3 (g /dL) Final ALT (Alanine aminotransferase) 08/31/2024 11:00:24 6 Below low normal 10-35 (U/L) Final Performing Location LABORATORY [facility] - [address] [place] [address]
--- OUTSIDE RECORDS SUMMARY | 2024-09-19 23:26 | External Medical Summary | Summary of Care ---
Author Name Unknown Organization [facility] Address [address] [place] [address] Phone [phone] Care Team Providers Care Mortgage Sales Manager Name Role Phone Unavailable Primary Care Provider Unavailabl e Encounter Details Date Type Department Care Team (Late st Contact Info) Description 09/01/2024 Telephone Hematology/Oncology Tyson Nori [place] [address] [place] [phone] Chitra Bass MD [address] [facility] [place] [address] Allergies No known active allergiesdocumented as of [...] the port. * Telephone Encounter - Gary Long RN - 09/01/2024 7:19 AM EST Gen Surg- Patient will be starting chemotherapy/radiation soon. Any chance she can be seen earlier for port placement consultation/placement. Thank you? documented in this encounter Plan of Treatment Upcoming Encounters Date Type Department Care Team (Late st Contact Info) Description 09/06/2024 11:00 AM EST Office Visit Palliative Medicine [facility] [address] [place] [phone] Kaye Augustine MD [address] [place] [address] 09/13/2024 2:30 PM EST Office Visit General Surgery, [facility] [address] [facility] [place] [address] Dipak Botello MD [address] [address] Health Maintenance Due Date Last Done Comments [...]
--- OUTSIDE RECORDS SUMMARY | 2024-09-19 23:26 | External Medical Summary ---
Author Name Unknown Address Unknown Organization K09:LABORATORY [facility] - [address] [place] [address] Laboratory Report Ordering Provider Test Date Status TIRSO FELTON 08/31/2024 11:00:24 Final Observation Date Value Abnormality Reference (Units ) Status SYNC LEUKOCYTES IN BLOOD BY AUTOMATED COUNT 08/31/2024 11:00:24 20.32 Above high normal 4.00-10.80 (K/uL) Final Neutrophils/100 leukocytes in Blood by Manual count 08/31/2024 11:00:24 71.0 40.0-75.0 (%) Final Lymphocytes/100 leukocytes in Blood by Manual count 08/31/2024 11:00:24 14.0 Below low normal 18.0-42.0 (%) Final Monocytes/100 leukocytes in Blood by Manual count 08/31/2024 11:00:24 8.0 1.0-11.0 (%) Final Eosinophils/100 leukocytes in Blood by Manual count 08/31/2024 11:00:24 7.0 Above high normal 0.0-6.0 (%) Final Neutrophils [#/volume] in Blood by Manual count 08/31/2024 11:00:24 14.43 Above high normal 1.80-7.70 (K/uL) Final Lymphocytes [#/volume] in Blood by Manual count 08/31/2024 11:00:24 2.84 1.00-4.80 (K/uL) Final Monocytes [#/volume] in Blood by Manual count 08/31/2024 11:00:24 1.63 Above high normal 0.00-1.10 (K/uL) Final Eosinophils [#/volume] in Blood by Manual count 08/31/2024 11:00:24 1.42 Above high normal 0.00-0.70 (K/uL) Final Nucleated erythrocytes/100 leukocytes [Ratio] in Blood by Automated count 08/31/2024 11:00:24 Final Neutrophils.hypersegm ented [Presence] in Blood by Light microscopy 08/31/2024 11:00:24 Present Abnormal None Seen Final Performing Location LABORATORY [facility] [place] [address]
--- OUTSIDE RECORDS SUMMARY | 2024-09-19 23:26 | External Medical Summary ---
Author Name Unknown Address Unknown Organization K09:LABORATORY [facility] [address] [place] [address] Laboratory Report Ordering Provider Test Date Status TIRSO FELTON 08/31/2024 11:00:24 Final Observation Date Value Abnormality Reference (Units ) Status WBC, Total 08/31/2024 11:00:24 20.32 Above high normal 4 .00-10.80 (K/uL) Final RBC 08/31/2024 11:00:24 4.13 3.85-5.15 (M/uL) Final Hemoglobin 08/31/2024 11:00:24 12.6 12.0-15.3 (g/dL) Final HCT 08/31/2024 11:00:24 38.4 36.0-45.2 (%) Final MCV 08/31/2024 11:00:24 93.0 81.5-97.5 (fL) Final MCH 08/31/2024 11:00:24 30.5 27.0-34.0 (pg) Final MCHC 08/31/2024 11:00:24 32.8 32.0-36.0 (g/dL) Final RDW 08/31/2024 11:00:24 13.4 11.5-15.5 (%) Final Platelets 08/31/2024 11:00:24 391 140-400 (K /uL) Final MPV 08/31/2024 11:00:24 10.3 6.6-11.1 ( fL) Final Performing Location LABORATORY [facility] [address] [place] [address]
--- OUTSIDE RECORDS SUMMARY | 2024-09-19 23:26 | External Medical Summary | Summary of Care ---
Author Name Unknown Organization [facility] Address [address] [place] [address] Phone [phone] Care Team Providers Care Master [place] Name Role Phone Unavailable Primary Care Provider Unavailabl e Encounter Details Date Type Department Care Team (Late st Contact Info) Description 09/01/2024 Telephone Hematology/Oncology Tyson Nori [place] [address] [place] [phone] Chitra Bass MD [address] [facility] [place] [address] Allergies No known active allergiesdocumented as of [...] Miscellaneous Notes * Telephone Encounter - Chandrika lAberts OSA - 09/01/2024 7:42 AM EST So [...] 11:00 AM EST Office Visit Palliative Medicine [facility] [address] [place] [phone] Kaye Augustine MD [address] [place] [address] 09/13/2024 2:30 PM EST Office Visit General Surgery, [facility] [address] [facility] [place] [address] Dipak Botello MD [address] [facility] [place] [address] Health Maintenance Due Date Last Done Comments [...]
--- OUTSIDE RECORDS SUMMARY | 2024-09-19 23:26 | External Medical Summary ---
Author Name Unknown Address Unknown Organization K01:LABORATORY [facility] - [address] [facility] [address] [facility] [address] Laboratory Report Ordering Provider Test Date Status MIR FELTONON 08/31/2024 11:00:24 Final Observation Date Value Abnormality Reference (Units ) Status TSH 08/31/2024 11:00:24 1.48 0.27-4.20 (uIU/mL) Final Performing Location LABORATORY [facility] - [address] [facility] [address]
--- OUTSIDE RECORDS SUMMARY | 2024-09-19 23:26 | External Medical Summary | Summary of Care ---
Author Name Unknown Organization [facility] Address [address] [place] [address] Phone [phone] Care Team Providers Care Assistant Product Manager Name Role Phone Unavailable Primary Care Provider Unavailabl e Reason for Visit * Reason Onset Date Comments Precert Future 08/29/2024 Cisplatin/ RT +k eytruda Encounter Details Date Type Department Care Team (Late st Contact Info) Description 08/29/2024 Telephone Hematology/Oncology Treatment, [place] [address] [place] [address] Chitra Bass MD [address] [place] [address] Precert Future (Cisplatin/ RT +keytruda) Allergies No [...] will be ready. N:S- please notify [facility] Rad Onc once referral is back . * Telephone Encounter - Amanda Jerome neri - 08/30/2024 1:17 PM EST Hello, [place] plan post treatment hydration has been adjusted per below. Amanda Jerome PharmD, [facility] Coordinator, Acute Pharmacy Services Hematology/Oncology [phone] 08/30/2024, 1:18 PM * Telephone Encounter - Malorie Owen RN - 08/29/2024 9:38 AM EST Order received for weekly cisplatin/ RT, patient will also get keytruda. [place] plan built and routed for signature. Waiting for auth. Consent signed 08/28/24. Education visit 08/31/24. Patient needs hep B labs. TT sent to [facility] rad/onc to confirm when they will be ready to start. [place]: please update post hydration- per Dr Bass, would like 1L NSS with 10mEq KCl and 1g mag. Thanks! documented in this encounter Plan of Treatment Upcoming Encounters Date Type Department Care Team (Late st Contact Info) Description 09/06/2024 11:00 AM EST Office Visit Palliative Medicine [facility] [address] [facility] [address] [place] [address] Kaye Augustine MD [address] [place] [address] [place] [address] 09/13/2024 2:30 PM EST Office Visit General Surgery, [facility] [address] [facility] [place] [address] Dipak Botello MD 132 [facility] [place] [address] Pending Results Name Type Priority Associated Diagnoses [...] - 2.6 mg/dL 08/31/2024 11:31 AM EST [facility] 56-02 Blood Venous blood specimen / Unknown Venipuncture / Unknown 08/31/2024 11:00 AM EST 08/31/2024 11:00 AM EST Chitra Bass MD LAB BLOOD ORDERABLES Fin al Result [facility] 56-[address] [place] [address] * (ABNORMAL) COMPREHENSIVE METABOLIC PANEL (08/31/2024 11:00 AM EST) BUN 13 6 - 20 mg/dL 08/31/2024 11:31 AM EST [facility] 56-02 CREATININE 1.2(H) 0.5 - 1.0 mg/dL 08/31/2024 11:31 AM EST [facility] 56-02 EGFR 59(L) >=60 mL/min 08/31/2024 11:31 AM [facility] 56-02 Comment:eGFR is calculated b ased on the CKD-EPI 2020 equation. SODIUM 135 135 - 146 mmol/L 08/31/2024 11:31 AM EST [facility] 56-02 POTASSIUM 4.1 3.5 - 5.1 mmol/L 08/31/2024 11:31 AM EST [facility] 56-02 CHLORIDE 100 98 - 107 mmol/L 08/31/2024 11:31 AM [facility] 56- CO2 22 22 - 32 mmol/L 08/31/2024 11:31 AM [facility] 56-02 ANION GAP 13 7 - 15 mmol/L 08/31/2024 11:31 AM [facility] 56- GLUCOSE 99 70 - 120 mg/dL 08/31/2024 11:31 AM [facility] 56- Albumin 3.6(L) 3.8 - 5.0 g/dL 08/31/2024 11:31 AM [facility] 56- AST 11 10 - 35 U/L 08/31/2024 11:31 AM [facility] 56 Alkaline Phosphatase 83 35 - 130 U/L 08/31/2024 11:31 AM [facility] 56 Bilirubin, Total 0.3 <=1.2 mg/dL 08/31/2024 11:31 AM [facility] 56 CALCIUM 9.4 8.4 - 10.2 mg/dL 08/31/2024 11:31 AM [facility] 56 Protein 7.8 6.0 - 8.3 g/dL 08/31/2024 11:31 AM [facility] 56 ALT 6(L) 10 - 35 U/L 08/31/2024 11:31 AM [facility] 56-02 Blood Venous blood specimen / Unknown Venipuncture / Unknown 08/31/2024 11:00 AM EST 08/31/2024 11:00 AM EST Chitra Bass MD LAB BLOOD ORDERABLES Fin al Result [facility] 56-[address] [place] [address] documented in this encounter Visit Diagnoses Diagnosis Squamous cell carcinoma of cervix (HCC)- Primary Malignant neoplasm of cervix uteri, unspecified site documented in this encounter
--- OUTSIDE RECORDS SUMMARY | 2024-09-19 23:26 | External Medical Summary | Summary of Care ---
Author Name Unknown Organization [facility] Address [address] [place] [address] Phone [phone] Care Team Providers Care Professor Of Rhetoric Name Role Phone Unavailable Primary Care Provider Unavailabl e Reason for Visit * Reason Onset Date Comments Precert Future 08/29/2024 Cisplatin/ RT +k eytruda Encounter Details Date Type Department Care Team (Late st Contact Info) Description 08/29/2024 Telephone Hematology/Oncology Treatment, [place] [address] [place] [address] Chitra Bass MD [address] [place] [address] Precert Future (Cisplatin/ RT +keytruda) Allergies No [...] patient for the followin/18 - Labs in [facility] "CBCD,CMP,Mag,Urine Preg" 09/13 - Provider visit at 9AM (ok to be with 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 They are scheduling her [...] EST Referral is entered. TT sent to [facility] to get scheduled. * Telephone Encounter - Gary Long RN - 08/31/2024 12:42 PM EST Education completed. Hep B Labs/Baseline Labs completed. TT sent to Rad/Onc to make them aware we are awaiting referral and patient will be ready. N:S- please notify [facility] Rad Onc once referral is back . * Telephone Encounter - Amanda Jerome [facility] - 08/30/2024 1:17 PM EST Hello, [place] plan post treatment hydration has been adjusted per below. Amanda Jerome PharmD, [facility] Coordinator, Acute Pharmacy Services Hematology/Oncology [phone] 08/30/2024, 1:18 PM * Telephone Encounter - Malorie Owen, RN - 08/29/2024 9:38 AM EST Order received for weekly cisplatin/ RT, patient will also get keytruda. [place] plan built and routed for signature. Waiting for auth. Consent signed 08/28/24. Education visit 08/31/24. Patient needs hep B labs. TT sent to [facility] rad/onc to confirm when they will be ready to start. [place]: please update post hydration- per Dr Bass, would like 1L NSS with 10mEq KCl and 1g mag. Thanks! documented in this encounter Plan of Treatment Upcoming Encounters Date Type Department Care Team (Late st Contact Info) Description 09/06/2024 8:20 AM EST Laboratory Laboratory [facility] 200 [facility] [place] [phone] Nori, Lab [address] [place] [address] 09/06/2024 9:30 AM EST Hem/Onc Treatment Hematology/Oncology [address], [address] [phone] Nori, Chair 10 Hem Onc [address] [place] [address] 09/06/2024 11:00 AM EST Office Visit Palliative Medicine [facility] [place] [facility] [id number] Kaye Augustine MD [address] [place] [address] [place] [address] Scheduled Orders Name Type Priority Associated Diagnoses [...] LAB BLOOD ORDERABLES Fin al Result LAB[facility]ORY [facility] [address] [place] [address] * MAGNESIUM (08/31/2024 11:00 AM EST) Magnesium 2.0 1.5 - 2.6 mg/dL 08/31/2024 11:31 AM EST [facility] 5602 Blood Venous blood specimen / Unknown Venipuncture / Unknown 08/31/2024 11:00 AM EST 08/31/2024 11:00 AM EST Chitra Bass MD LAB BLOOD ORDERABLES Fin al Result [facility] 5602 [address] [place] [address] * (ABNORMAL) COMPREHENSIVE METABOLIC PANEL (08/31/2024 11:00 AM EST) BUN 13 6 - 20 mg/dL 08/31/2024 11:31 AM [facility] 56- CREATININE 1.2(H) 0.5 - 1.0 mg/dL 08/31/2024 11:31 AM [facility] 56- EGFR 59(L) >=60 mL/min 08/31/2024 11:31 AM [facility] 56-02 Comment:eGFR is calculated b ased on the CKD-EPI 2020 equation. SODIUM 135 135 - 146 mmol/L 08/31/2024 11:31 AM [facility] 56- POTASSIUM 4.1 3.5 - 5.1 mmol/L 08/31/2024 11:31 AM EST [facility] 56- CHLORIDE 100 98 - 107 mmol/L 08/31/2024 11:31 AM EST [facility] 56- CO2 22 22 - 32 mmol/L 08/31/2024 11:31 AM [facility] 56-02 ANION GAP 13 7 - 15 mmol/L 08/31/2024 11:31 AM [facility] 56-02 GLUCOSE 99 70 - 120 mg/dL 08/31/2024 11:31 AM [facility] 56-02 Albumin 3.6(L) 3.8 - 5.0 g/dL 08/31/2024 11:31 AM [facility] 56-02 AST 11 10 - 35 U/L 08/31/2024 11:31 AM [facility] 56-02 Alkaline Phosphatase 83 35 - 130 U/L 08/31/2024 11:31 AM [facility] 56-02 Bilirubin, Total 0.3 <=1.2 mg/dL 08/31/2024 11:31 AM [facility] 56-02 CALCIUM 9.4 8.4 - 10.2 mg/dL 08/31/2024 11:31 AM [facility] 5602 Protein 7.8 6.0 - 8.3 g/dL 08/31/2024 11:31 AM [facility] 5602 ALT 6(L) 10 - 35 U/L 08/31/2024 11:31 AM [facility] 5602 Blood Venous blood specimen / Unknown Venipuncture / Unknown 08/31/2024 11:00 AM EST 08/31/2024 11:00 AM EST Chitra Bass MD LAB BLOOD ORDERABLES Fin al Result [facility] 56-[address] [place] [address] * HEPATITIS B CORE ANTIBODIES IGG AND IGM (08/31/2024 11:00 AM EST) Hepatitis B Core Antibodies IgG and IgM Negative Negative 08/31/2024 5:42 PM EST [facility]ORY [facility] Blood Venous blood specimen / Unknown Venipuncture / Unknown 08/31/2024 11:00 AM EST 08/31/2024 11:00 AM EST Chitra Bass MD LAB BLOOD ORDERABLES Fin al Result [facility] [address] [place] [address] * HEPATITIS B SURFACE ANTIGEN (08/31/2024 11:00 AM EST) Hepatitis B Surface Antigen Negative Negative 08/31/2024 5:42 PM EST [facility] Blood Venous blood specimen / Unknown Venipuncture / Unknown 08/31/2024 11:00 AM EST 08/31/2024 11:00 AM EST us Chitra Bass MD LAB BLOOD ORDERABLES Fin al Result Performing Organization Address [facility] Co de Phone Number LABORATORY [facility] [address] [place] [address] * HEPATITIS B SURFACE ANTIBODY (08/31/2024 11:00 AM EST) Hepatitis B Surface Antibody, Quantitative <3.5 mIU/mL 08/31/2024 5:42 PM EST [facility]ORY [facility] Hepatitis B Surface Antibody, Qualitative Negative 08/31/2024 5:42 PM EST [facility]ORY [facility] Hepatitis B Surface Antibody, Interpretation NOT immune to Hepatitis B Virus 08/31/2024 5:42 PM EST [facility] Comment: POSITIVE: >=11.5 mIU/mL INDETERMINATE: 8.5-<11.5 mIU/mL NEGATIVE: <8.5 mIU/mL Blood Venous blood specimen / Unknown Venipuncture / Unknown 08/31/2024 11:00 AM EST 08/31/2024 11:00 AM EST us Chitra Bass MD LAB BLOOD ORDERABLES Fin al Result Performing Organization Address [facility] Co de Phone Number LABORATORY [facility] [address] [place] [address] documented in this encounter Visit Diagnoses Diagnosis Squamous cell carcinoma of cervix (HCC)- Primary Malignant neoplasm of cervix uteri, unspecified site documented in this encounter
--- OUTSIDE RECORDS SUMMARY | 2024-09-19 23:27 | External Medical Summary | Summary of Care ---
Author Name Unknown Organization [facility] Address [address] [place] [address] Phone [phone] Care Team Providers Care Security Supervisor Name Role Phone Unavailable Primary Care Provider Unavailabl e Reason for Referral * Evaluate & Treat - Unlimited Visits (Within 10 days (routine)) - Authorized Specialty Diagnoses / Procedures Referred By Sujit alberts Referred To Contact General Surgery Diagnoses Squamous cell carcinoma of cervix (HCC) Chitra Bass MD [address] [place] [address] Phone: tel: fax: Referral ID Status Reason Start Date Expiration Date Visits Requested Visits Authorized [id number] Authorized Specialty Services Required 08/28/2024 [id number] Question Answer Referral Priority Within 10 days (routine) Where should this appointment be scheduled? [facility] What condition is the patient being seen for? General Surgery Conditions What condition is the patient being seen for? All other conditions Comments For port Reason for Visit * Reason Comments NEW PATIENT PTA * Evaluate & Treat - Unlimited Visits (Within 10 days (routine)) - Authorized Specialty Diagnoses / Procedures Referred By Sujit alberts Referred To Contact Hematology/Oncology / Hematology Oncology Diagnoses Malignant neoplasm of cervix uteri, unspecified (HCC) Mary Nathan PA-C [address] [place] [address] Phone: tel: fax: Referral ID Status Reason Start Date Expiration Date Visits Requested Visits Authorized [id number] Authorized Specialty Services Required 08/18/[id number] Encounter Details Date Type Department Care Team (Late st Contact Info) Description 08/28/2024 1:00 PM EST Office Visit Hematology/Oncology [place] [address] [facility] [place] [phone] Chitra Bass MD [address] [facility] [place] [address] Squamous cell carcinoma of cervix (HCC)* Allergies No known active allergiesdocumented as of this encounter (statuses as of 08/29/2024) Medications traMADol HCl 50 MG Oral Tablet [...] as of this encounter (statuses as of 08/29/2024) Active Problems Problem Noted Date Diagnosed Date Encounter for antineoplastic chemotherapy 2024 Squamous cell carcinoma of cervix 07/31/2024 Tobacco use documented as of this encounter (statuses as of 08/29/2024) Resolved Problems Problem Noted Date Diagnosed Date Resolved Date Encounter for supervision of other normal 01/31/2002 04/26/2002 Overview (11/26/2015): ICD-10 update of inactive term documented as of this encounter (statuses as of 08/29/2024) Social History Tobacco Use Types Packs/Day Years [...] ages 0-17 years) Not on file 06/07/2024 Comments No Sex and Gender Information [...] Epic record. 08/28/2024 1:06 PM Luanne Farrell [id number] 44 year old No primary care provider on file. Chitra Bass MD Patient Encounter: HEMATOLOGY/ONCOLOGY [facility] Reason for consult: CA cervix. Biopsies [...] She had a follow-up appointment with the black studies professor on 07/25/24 and examination revealed cervix with [...] cell abnormality: High-grade squamous intraepithelial lesion (HSIL, [place] [facility]). The process may involve the endocervix. [...] Stability Do you currently live in a mcfp or have no steady place to sleep [...] 4.8 oz) | LMP (LMP Unknown) | MgR379% | BMI 22.73 kg/m | BSA 1.61 [...] et al. The Lancet, Volume 403, Issue 91083, 1341 - 1350 I will also refer her to Surgical [...] this encounter Nursing Notes * Karina Andre, GRAILS WEB APPLICATION DEVELOPER - 08/28/2024 12:47 PM EST Patient identifed [...] comprehension of instructions. documented in this encounter Plan of Treatment Upcoming Encounters Date Type Department Care Team (Late st Contact Info) Description 08/31/2024 11:00 AM EST Pt Ed by Nurse Hematology/Oncology [place] Avenda[place] [address] [place] [address] Nurse Nori Hem Onc [facility] [address] [place] [address] Scheduled Referrals Name Type Priority Associated Diagnoses Orde r Schedule SURGERY REFERRAL OP Referral Within 10 da ys (routine) Squamous cell carcinoma of cervix (HCC) Ordered: 08/28/2024 Health Maintenance Due Date Last Done Comments [...]
--- OUTSIDE RECORDS SUMMARY | 2024-09-19 23:27 | External Medical Summary | Summary of Care ---
Author Name Unknown Organization [facility] Address [address] [place] [address] Phone [phone] Care Team Providers Care Waitress Name Role Phone Unavailable Primary Care Provider Unavailabl e Reason for Referral * Evaluate & Treat - Unlimited Visits (Within 10 days (routine)) - Authorized Specialty Diagnoses / Procedures Referred By Sujit alberts Referred To Contact Hematology/Oncology / Hematology Oncology Diagnoses Malignant neoplasm of cervix uteri, unspecified (HCC) Mary Nathan PA-C [address] [place] [address] Phone: tel: fax: Referral ID Status Reason Start Date Expiration Date Visits Requested Visits Authorized [id number] Authorized Specialty Services Required 08/18/[phone] Question Answer Referral Priority Within 10 days (routine) Where should this appointment be scheduled? [facility] Reason for Referral Malignant Oncology (Solid Organ Cancer) Comments Malignant neoplasm of cervix uteri Encounter Details Date Type Department Care Team (Late st Contact Info) Description 08/18/2024 Orders Only Access [place], [address] *DO NOT REMOVE THIS DEPARTMENT* [place] [address] Request, External Referral Malignant neoplasm of cervix uteri, unspecified (HCC)* Allergies No known active allergiesdocumented as of this encounter (statuses as of 08/18/2024) Medications traMADol HCl 50 MG Oral Tablet [...] severe constipation. 510 g 3 5 Active documented as of this encounter (statuses as of 08/18/2024) Active Problems Problem Noted Date Diagnosed Date Squamous cell carcinoma of cervix 07/31/2024 Tobacco use documented as of this encounter (statuses as of 08/18/2024) Resolved Problems Problem Noted Date Diagnosed Date Resolved Date Encounter for supervision of other normal 01/31/2002 04/26/2002 Overview (11/26/2015): ICD-10 update of inactive term documented as of this encounter (statuses as of 08/18/2024) Social History Tobacco Use Types Packs/Day Years [...] No 06/07/2024 Does the household have a [facility] hospital[facility] source of income? (Household - for [...] Care Team (Late st Contact Info) Description 08/25/2024 1:00 PM EST Office Visit Radiation Oncology, [place] [address] [place] [address] Uriel Akins MD [address] [place] [address] Scheduled Referrals Name Type Priority Associated Diagnoses Orde r Schedule HEMATOLOGY/ONCOLOGY REFERRAL OP Referral Within 10 days (routine) Malignant neoplasm of cervix uteri, unspecified (HCC) Ordered: 08/18/2024 Health Maintenance Due Date Last Done Comments [...] as of this encounter Visit Diagnoses Diagnosis Malignant neoplasm of cervix uteri, unspecified (HCC)- Primary documented in this encounter
--- OUTSIDE RECORDS SUMMARY | 2024-09-19 23:27 | External Medical Summary | Summary of Care ---
Author Name Unknown Organization [facility] Address [address] [facility] [place] [address] Phone [phone] Care Team Providers Care Draw Hand Name Role Phone Unavailable Primary Care Provider Unavailabl e Encounter Details Date Type Department Care Team (Late st Contact Info) Description 08/18/2024 Orders Only Access [facility] [address] [facility] *DO NOT REMOVE THIS DEPARTMENT* [place] [address] Request, External Referral Allergies No known active allergiesdocumented as of [...] 1:00 PM EST Office Visit Radiation Oncology, [place] [address] [place] [address] Uriel Akins MD [address] [place] [address] Health Maintenance Due Date Last Done Comments [...]
--- OUTSIDE RECORDS SUMMARY | 2024-09-19 23:27 | External Medical Summary | Summary of Care ---
Author Name Unknown Organization [facility] Address [address] [facility] [place] [address] Phone [phone] Care Team Providers Care Disc Pad Grinder Name Role Phone Unavailable Primary Care Provider Unavailabl e Encounter Details Date Type Department Care Team (Late st Contact Info) Description 08/18/2024 Orders Only Access [facility] [address] [facility] *DO NOT REMOVE THIS DEPARTMENT* [place] [address] Request, External Referral Allergies No known active [...] 1:00 PM EST Office Visit Radiation Oncology, [place] [address] [place] [address] Uriel Akins MD [address] [place] [address] Health Maintenance Due Date Last [...]
--- OUTSIDE RECORDS SUMMARY | 2024-09-19 23:27 | External Medical Summary ---
Author Name Unknown Address Unknown Organization : Laboratory Report Ordering Provider Test Date Status NO,UNKNOWN 08/10/2024 07:08:06 Final Observation Date Value Abnormality Reference (Units ) Status Glucose Point of Care 08/10/2024 07:08:06 81 70-120 (mg/dL) Final Performing Location
--- OUTSIDE RECORDS SUMMARY | 2024-09-19 23:27 | External Medical Summary | Summary of Care ---
Author Name Unknown Organization [facility] Address [address] [place] [address] Phone [phone] Care Team Providers Care Black Puller Name Role Phone Unavailable Primary Care Provider Unavailabl e Reason for Visit * Reason Onset Date Comments Referral 08/28/2024 Encounter Details Date Type Department Care Team (Late st Contact Info) Description 08/28/2024 Telephone General Surgery, [place] [address] [place] [address] Services, [facility] [address] [place] [address] Referral Allergies No known active allergiesdocumented as of this encounter (statuses as of 08/30/2024) Medications traMADol HCl 50 MG Oral Tablet [...] as of this encounter (statuses as of 08/30/2024) Active Problems Problem Noted Date Diagnosed Date Encounter for antineoplastic chemotherapy 2024 Squamous cell carcinoma of cervix 07/31/2024 Tobacco use documented as of this encounter (statuses as of 08/30/2024) Resolved Problems Problem Noted Date Diagnosed Date Resolved Date Encounter for supervision of other normal 01/31/2002 04/26/2002 Overview (11/26/2015): ICD-10 update of inactive term documented as of this encounter (statuses as of 08/30/2024) Social History Tobacco Use Types Packs/Day Years [...] No 06/07/2024 Does the household have a [facility] source of income? (Household - for [...] Telephone Encounter - Chandrika Alberts OSA - 08/30/2024 10:42 AM EST Scheduled on 09/13/24. * Telephone Encounter - Karina Theodore LPN - 08/28/2024 1:43 PM EST Referral from: Dr. Bass Consult: General Surgery For: port placement Referral received as detailed above. Will notify dept of referral, as per workflow. Ruby Theodore LPN Intake Nurse Navigator General Surgery and Breast Clinic [facility] documented in this encounter Plan of Treatment Upcoming Encounters Date Type Department Care Team (Late st Contact Info) Description 08/31/2024 11:00 AM EST Pt Ed by Nurse Hematology/Oncology [facility] [address] [place] [phone] Nurse Nori Hem Onc [facility] [address] [place] [address] 09/13/2024 2:30 PM EST Office Visit General Surgery, [facility] [address] [place] [address] Dipak Botello MD [address] [place] [address] Health Maintenance Due Date Last Done Comments [...]
--- OUTSIDE RECORDS SUMMARY | 2024-09-19 23:27 | External Medical Summary | Summary of Care ---
Author Name Unknown Organization [facility] Address [address] [place] [address] Phone [phone] Care Team Providers Care Tree And Shrub Technician Name Role Phone Unavailable Primary Care Provider Unavailabl e Encounter Details Date Type Department Care Team (Late st Contact Info) Description 08/25/2024 1:00 PM EST Office Visit Radiation Oncology, [place] [address] [place] [address] Uriel Akins MD [address] [place] [address] Squamous cell carcinoma of cervix (HCC)* Allergies No known active allergiesdocumented as of this encounter (statuses as of 08/27/2024) Medications traMADol HCl 50 MG Oral Tablet [...] mouth every 4 hours as needed. Active documented as of this encounter (statuses as of 08/27/2024) Active Problems Problem Noted Date Diagnosed Date Squamous cell carcinoma of cervix 07/31/2024 Tobacco use documented as of this encounter (statuses as of 08/27/2024) Resolved Problems Problem Noted Date Diagnosed Date Resolved Date Encounter for supervision of other normal 01/31/2002 04/26/2002 Overview (11/26/2015): ICD-10 update of inactive term documented as of this encounter (statuses as of 08/27/2024) Social History Tobacco Use Types Packs/Day Years [...] Sign Reading Time Taken Comments Blood Pressure 137/79 08/25/2024 12:54 PM EST Pulse 98 08/25/2024 12:54 PM EST Temperature 36.7 C (98.1 F) 08/25/2024 12:[address] Respiratory Rate 16 08/25/2024 12:54 PM EST Oxygen Saturation 98% 08/25/2024 12:54 PM EST Inhaled Oxygen Concentration - - Weight - - Height - - Body Mass Index - - documented in this encounter Progress Notes * Uriel Akins MD - 08/25/2024 1:48 PM EST RADIATION ONCOLOGY CONSULTATION NOTE [facility] DATA SOURCE: Patient, [facility] LOCATION: Radiation Oncology Clinic 08/27/2024 11:29 AM Luanne Farrell [id number] 44 year old Luanne Farrell was seen in consultation by Radiation Oncology at [facility] on 08/27/2024. REFERRING PHYSICIAN: Hafsa Abarca MD SITE OF MALIGNANCY: Cervix HISTOPATHOLOGY: Squamous cell carcinoma moderately differentiated STAGE: Stage IIIC CURRENT THERAPY: Evaluation REASON FOR CONSULTATION: Discussion of the potential role of radiation therapy in the management of the patient's disease HISTORY OF PRESENT ILLNESS: The patient is a 44-year-old female who began experiencing abdominal pain and irregular bleeding several months ago. She went to her marshmallow maker in the Pap smear & pelvic ultrasound found a lower uterine segment mass that was indeterminate. Pelvic MRI was recommended. She underwent colposcopy and MRI in June which returned a diagnosis squamous cell carcinoma. MRI showed a 6 cm mass in the cervix with a and a large external iliac node. She continues to have abdominal pain that has intermittent. PET scan from Aug 10 2024 showed an intensely hypermetabolic cervical mass with local invasion with concern for left ureteral involvement without hydronephrosis with hypermetabolic shelby metastasis on the pelvic sidewall. There was a small but mildly active soft tissue was nodule on the fatanterior to the uterus which could potentially represent an additional node peritoneal implant.. The patient was seen by bartender Oncology. Was clear that she is not a surgical candidate and was referred to radiation therapy at [facility] in [place]. She has been simulated for external beam radi ation therapy and is to see a medical oncologists for plans for weekly cis- nulato. External beam radiation is expected to start in the near future. Dr. Keith radiation oncologist contacting about 10 days ago and asked if I want to see the patient early. At the completion of external beam radiation therapy the patient will require brachytherapy and that is likely to be done at this institution and I should absolutely see the patient early before this. The patient is seen today without other changes. RADIATION HISTORY: None Patient Active Problem List Diagnosis Tobacco use Squamous cell carcinoma of cervix (HCC) Past Medical History: Diagnosis Date Squamous cell carcinoma of cervix (HCC) 07/31/2024 Tobacco use The patient denies any history of lupus, scleroderma, or other collagen vascular diseases. Past Surgical History: Procedure Laterality Date REMOVAL OF KNEE CYST (MOSCOSO'S) Current Outpatient Medications Medication Sig Dispense Refill [...] No current facility-administered medications for this visit. Review of patient's allergies indicates: No Known Allergies Social History Socioeconomic History Marital status: Spouse [...] Stability Do you currently live in a mcc or have no steady place to sleep [...] No significant family history REVIEW OF SYSTEMS: Please see history of present illness above. The patient denies pain, bony pain, headaches, nausea, emesis, changes in bowel movements, changes in urination, or loss of appetite. The patient denies altered cognition, speech, swallow, gait, strength, sensation, or vision. The patient denies chest pain, shortness of breath, fever, chills, cough, or hemoptysis. The patient denies any other new complaints including cardiovascular, respiratory, gastrointestinal, genitourinary, or neurologic. Review of systems is otherwise non-contributory. PHYSICAL EXAMINATION: BP 137/79 (BP Site: Left Arm, BP Position: Sitting, BP Cuff Size: Regular) | Pulse 98 | Temp 36.7 C (98.1 F) (Tympanic) | Resp 16 | LMP (LMP Unknown) | SpO2 98% Wt Readings from Last 4 Encounters: 07/25/24 60.8 kg (134 lb) 06/08/24 60.8 kg (134 lb) 04/30/20 55.3 kg (122 lb) 10/31/12 66.2 kg (146 lb) Weight: weight recently stable General: alert and oriented, no apparent distress, and cognition normal Back: no tenderness to spinal palpation and percussion Eyes: sclera non-icteric bilaterally and extra-ocular movements intact bilaterally Head and face: facial strength symmetric Ears, nose, and throat: oral cavity and oropharynx clear and without mucosal lesions or thrush Lymphatics: no cervical adenopathy and no supraclavicular adenopathy Lungs: clear to auscultation Cardiovascular: regular rate and rhythm Abdomen: soft non-tender and non-distended, positive bowel sounds, no hepatosplenomegaly, and patient can lie on back without significant problem Pelvis: Normal external genitalia on speculum examination sidewalls appear to be clear at the apex of the vagina there is an open necrotic area that required Q- tips. Cervix was identifiable with a raised purplish area inferiorly into the left on bimanual examination the tumor did appear to extend into partially into the upper vagina on rectovaginal examination tumor was fairly large 6-7 cm but noobvious pelvic sidewall fixation Lower extremities: non-edematous bilaterally Neurologic: no focal deficits and symmetric strength ZUBROD PERFORMANCE SCALE: 0 fully active, able to carry out all pre-disease activities without restriction LABS: Patient's PET scan and MRI were reviewed extensively. 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 I have discussed the case with Dr. Keith we are in agreementwith the initial approach of external beam radiation therapy to 45 Gy with simultaneous integrated boost to obviously involved lymph nodes. The patient will also receive weekly cisplatin and this will start in the near future. We will try to repeat the MRI just before the patient finishes treatmentand had plans for cervical sleeve placement and intracavitary brachytherapy. There has been inadequate response we may need to consider interstitial brachytherapy. This was discussed with the patient. We basically discussed the brachytherapy options in detail including intracavitary brachytherapy with tandem and ring and possible interstitial implantation.. I told the patient that I want to see her towards the end of her treatment after the MRI.. We will obtain a date for cervical sleeve placement and preliminary dates for the endocavitary brachytherapy. If intracavitary brachytherapy falls through we will either prepared to interstitial implantation at this institution or refer the patientout. All these options were discussed with the patient. PLAN: The role of radiation therapy in this situation was discussed with the patient. The logistics, potential benefits, and potential side effects of radiation therapy were reviewed. Possible short-term and long-term side effects of radiation therapy were discussed, including fatigue or lack of energy, localized swelling or discomfort, subcutaneous fibrosis, extremity lymphedema,bone growth inhibition, nausea, emesis, early satiety, more frequent bowel movements, more frequent urination, dysuria, rectal bleeding, urinary bleeding, chronic changes in bowel habits, chronic changes in urinary habits, small bowel injury or obstruction, spinal cord injury, nerve injury, blood vessel injury, fistula formation, stricture formation, stenosis formation, impaired wound healing, sub-optimal cosmetic outcome, pain, -----, injury to other structures in the radiation cuenca, radiation-induced malignancies, and complications requiring surgery to correct. Consent was obtained. The patient voiced understanding of all of the above. All questions and concerns were addressed in an apparently satisfactory manner. I spent 40 minutes counseling the patient face to face. The total time spent in the appointment was60 minutes. Thank you very much for having asked us to evaluate this patient. Uriel Akins MD 08/27/2024 This note was completed using the dictation program Fluency Direct. As such, there may be misspellings, word substitutions, or other variations that should not change the essence of the clinical content of this encounter note. If there is need for further clarification, please direct questions to the provider listed above. documented in this encounter Plan of Treatment Upcoming Encounters Date Type Department Care Team (Late st Contact Info) Description 08/28/2024 1:00 PM EST Office Visit Hematology/Oncology [facility] [address] [place] [id number] Chitra Bass MD [address] [place] [address] Health Maintenance Due Date Last Done Comments Lipid Panel 1980 Hepatitis C Screening 1998 DTap/Tdap Vaccines (1 - Tdap) 1999 Hepatitis B Vaccine (1 of 3 - 19+ 3-dose series) 1999 Pneumococcal Vaccine: Pediatrics (0 to 5 Years) and At-Risk Patients (6 to 18 Years and 19+ Years) (1 of 2 - PCV) 1999 Depression Screening 04/30/2021 04/30/2020 COVID-19 Vaccine (2023-2 5 season) 2024 Influenza Vaccine (FLU shot) [...] cervix uteri, unspecified site documented in this encounter"
--- OUTSIDE RECORDS SUMMARY | 2024-09-19 23:27 | External Medical Summary | Summary of Care ---
Author Name Unknown Organization [facility] Address [address] [place] [address] Phone [phone] Care Team Providers Care Heart Nurse Name Role Phone Unavailable Primary Care Provider Unavailabl e Reason for Visit * Reason Onset Date Comments Imaging Records Request 08/16/2024 Encounter Details Date Type Department Care Team (Late st Contact Info) Description 08/16/2024 Telephone Radiology Film File [address] [place] [address] Support, Imaging Radiology [address] [place] [address] Imaging Records Request Allergies No known active allergiesdocumented as of this encounter (statuses as of 08/16/2024) Medications traMADol HCl 50 MG Oral Tablet [...] as of this encounter (statuses as of 08/16/2024) Active Problems Problem Noted Date Diagnosed Date Squamous cell carcinoma of cervix 07/31/2024 Tobacco use documented as of this encounter (statuses as of 08/16/2024) Resolved Problems Problem Noted Date Diagnosed Date Resolved Date Encounter for supervision of other normal 01/31/2002 04/26/2002 Overview (11/26/2015): ICD-10 update of inactive term documented as of this encounter (statuses as of 08/16/2024) Social History Tobacco Use Types Packs/Day Years [...] encounter Miscellaneous Notes * Telephone Encounter - Herberth Dye, Epic Support - 08/16/2024 10:43 AM EST [facility] [employer] requesting 08-10-[address] images be pushed through PACS. [place] Authorization to Release on file. Images pushed to [employer] PACS external connection. documented in this encounter Plan of Treatment Health Maintenance Due Date Last Done Comments [...]
--- OUTSIDE RECORDS SUMMARY | 2024-09-19 23:27 | External Medical Summary | Summary of Care ---
Author Name Unknown Organization [facility] Address [address] [place] [address] Phone [phone] Care Team Providers Care Human Resources Consultant Name Role Phone Unavailable Primary Care Provider Unavailabl e Reason for Visit * Reason Onset Date Comments Precert Future 08/29/2024 Cisplatin/ RT +k eytruda Encounter Details Date Type Department Care Team (Late st Contact Info) Description 08/29/2024 Telephone Hematology/Oncology Treatment, [place] [address] [place] [address] Chitra Bass MD [address] [place] [address] Precert Future (Cisplatin/ RT +keytruda) Allergies No [...] encounter Miscellaneous Notes * Telephone Encounter - Amanda Jerome [facility] - 08/30/2024 1:17 PM EST Heljocelyn [place] plan post treatment hydration has been adjusted per below. Amanda Jerome PharmD, [facility] Coordinator, Acute Pharmacy Services Hematology/Oncology [phone] 08/30/2024, 1:18 PM * Telephone Encounter - Malorie Owen RN - 08/29/2024 9:38 AM EST Order received for weekly cisplatin/ RT, patient will also get keytruda. [place] plan built and routed for signature. Waiting for auth. Consent signed 08/28/24. Education visit 08/31/24. Patient needs hep B labs. TT sent to [facility] rad/onc to confirm when they will be ready to start. [place]: please update post hydration- per Dr Bass, would like 1L NSS with 10mEq KCl and 1g mag. Thanks! documented in this encounter Plan of Treatment Upcoming Encounters Date Type Department Care Team (Late st Contact Info) Description 08/31/2024 11:00 AM EST Pt Ed by Nurse Hematology/Oncology [facility] [address] [place] [phone] Nori Nurse Hem Onc [facility] [address] [place] [address] 09/13/2024 2:30 PM EST Office Visit [facility] [address] [facility] [place] [address] Dipak Botello MD [address] [place] [address] Scheduled Orders Name Type Priority Associated Diagnoses [...] Week for 25 Occurrences starting 08/29/2024 until 08/29/2025 COMPREHENSIVE METABOLIC PANEL Lab STAT Squamous cell carcinoma of cervix (HCC) Every Week for 25 Occurrences starting 08/29/2024 until 08/29/2025 MAGNESIUM Lab STAT Squamous cell carcinoma of cervix (HCC) Every Week for 25 Occurrences starting 08/29/2024 until 08/29/2025 TSH WITH FREE T4 IF INDICATED Lab [...]
--- OUTSIDE RECORDS SUMMARY | 2024-09-19 23:27 | External Medical Summary | Summary of Care ---
Author Name Unknown Organization [facility] Address [address] [place] [address] Phone [phone] Care Team Providers Care Manager Statistical Programming Name Role Phone Unavailable Primary Care Provider Unavailabl e Reason for Referral * Precert (Within 10 days (routine)) - Closed Specialty Diagnoses / Procedures Referred By Contac t Referred To Contact Radiology Diagnoses Squamous cell carcinoma of cervix (HCC) Procedures PET CT SKULL BASE TO MID-THIGH FDG Hafsa Abarca MD [address] [place] [address] Phone: tel: fax: Referral ID Status Reason Start Date Expiration Date V isits Requested Visits Authorized [id number] Closed Precert 08/02/2024 01/29/2025 1 1 Reason for Visit * Precert (Within 10 days (routine)) - Closed Specialty Diagnoses / Procedures Referred By Contac t Referred To Contact Radiology Diagnoses Squamous cell carcinoma of cervix (HCC) Procedures PET CT SKULL BASE TO MID-THIGH FDG Hafsa Abarca MD [address] [place] [address] Phone: tel: fax: Referral ID Status Reason Start Date Expiration Date V isits Requested Visits Authorized [id number] Closed Precert 08/02/2024 01/29/2025 1 1 Encounter Details Date Type Department Care Team (Latest Contact Info) Description 08/10/2024 6:50 AM EST - 08/10/2024 6:52 AM EST Hospital Encounter PET CT IMAGING, [facility] [address] [place] [address] Arrived Discharge Disposition: Home - Self Care Allergies No known active allergiesdocumented as of this encounter (statuses as of 08/11/2024) Medications traMADol HCl 50 MG Oral Tablet [...] severe constipation. 510 g 3 5 Active Hospital, Clinic, or Other Facility Administered Medication Ordered Dose Route Frequency Start Date End Date Status sodium chloride 0.9 % flush/inj 10 mL 10 mL IV PUSH ONCE 08/10/2024 08/10/2024 Ended documented as of this encounter (statuses as of 08/11/2024) Active Problems Problem Noted Date Diagnosed Date Squamous cell carcinoma of cervix 07/31/2024 Tobacco use documented as of this encounter (statuses as of 08/11/2024) Resolved Problems Problem Noted Date Diagnosed Date Resolved Date Encounter for supervision of other normal 01/31/2002 04/26/2002 Overview (11/26/2015): ICD-10 update of inactive term documented as of this encounter (statuses as of 08/11/2024) Social History Tobacco Use Types Packs/Day Years [...] as of this encounter Miscellaneous Notes * Result Encounter Note - Hafsa Abarca MD - 08/10/2024 7:15 AM EST Called patient to discuss results. Stage IIIC1 with pelvic node positive disease. She is doing well pain-sanders. She has an appointment at [facility] Onc next week. Will also try and get her an appointment at [facility]. Recommend that she get primary chemoRT with cisplatin/radiation, EBRT followed by brachytherapy. Recommend concurrent pembrolizumab at time of primary treatment per A18. documented in this encounter Plan of Treatment [...] Procedure Name Priority Date/Time Associated Diagnosis Comments PET CT SKULL BASE TO MID-THIGH Routine 08/10/2024 8:53 AM EST Squamous cell carcinoma of cervix (HCC) documented in this encounter Results * PET CT SKULL BASE TO MID-THIGH FDG (08/10/2024 8:53 AM EST) Anatomical Region Laterality Modality Body, Chest, Abdomen, Pelvis Pos itron Emission Tomography (PET) 08/10/2024 9:37 AM EST Impressions 08/10/2024 9:35 AM EST IMPRESSION 1. Intensely hypermetabolic cervical mass, consistent with biopsy proven malignancy. Local invasion in better assessed on recent pelvic MRI. However, concern for left ureteral involvement given stasis of excreted radiotracer throughout the left collecting system without hydronephrosis. 2. Hypermetabolic shelby metastases in the pelvic sidewalls. 3. Small but mildly active soft tissue nodule in the fat anterior to the uterus may represent an additional node or peritoneal implant. Narrative 08/10/2024 9:35 AM EST EXAM PET CT SKULL BASE TO MID-THIGH FDG - 08/10/2024 8:53 am HISTORY Invasive squamous cell carcinoma of the cervix COMPARISON MRI pelvis dated 07/20/2024 TECHNIQUE PET imaging was performed from the skull base to the mid thighs 67 minutes following the intravenous administration of 10.8 mCi of F-18 fluorodeoxyglucose (FDG). Low-dose CT was performed for anatomic localization and attenuation correction purposes and fused with the PET images on a separate workstation. The patient's glucose level at the time of radiotracer injection was 81 mg/dL. This is the initial PET/CT for the above indication. FINDINGS Maximum blood pool SUV: 2.1 Maximum hepatic SUV: 2.2 HEAD/NECK: No metabolically active cervical lymphadenopathy. Physiologic activity is present within the brain. CHEST: No metabolically active pulmonary nodules. No metabolically active axillary, hilar, or mediastinal lymphadenopathy. ABDOMEN/PELVIS: Intensely hypermetabolic cervical mass, measuring 6.4 x 6.3 cm with 22.3 SUV. Local extent is better assessed on recent pelvic MRI. Hypermetabolic lymph nodes in the bilateral pelvic sidewalls. A right internal iliac node measures 1.6 x 0.8 cm with 5.0 SUV. A left external iliac node measures 1.5 x 1.2 cm with 4.6 SUV. Small soft tissue nodule in the fat anterior to the uterus, measuring 0.7 x 0.6 cm, below PET resolution but with activity up to 2.0 SUV. Stasis of excreted radiotracer throughout the left urinary collecting system without hydronephrosis. MUSCULOSKELETAL: Diffusely increased marrow activity without suspicious osseous lesions. Procedure Note Faizan Gooden DO - 08/10/[address] SKULL BASE TO MID-THIGH FDG - 08/10/2024 8:53 am HISTORY Invasive squamous cell carcinoma of the cervix COMPARISON MRI pelvis dated 07/20/2024 TECHNIQUE PET imaging was performed from the skull base to the mid thighs 67 minutesfollowing the intravenous administration of 10.8 mCi of F-18fluorodeoxyglucose (FDG). Low- dose CT was performed for anatomiclocalization and attenuation correction purposes and fused with the PETimages on a separate workstation. The patient's glucose level at the timeof radiotracer injection was 81 mg/dL. This is the initial PET/CT for theabove indication. FINDINGS Maximum blood pool SUV: 2.1 Maximum hepatic SUV: 2.2 HEAD/NECK: No metabolically active cervical lymphadenopathy. Physiologic activity is present within the brain. CHEST: No metabolically active pulmonary nodules. No metabolically active axillary, hilar, or mediastinal lymphadenopathy. ABDOMEN/PELVIS: Intensely hypermetabolic cervical mass, measuring 6.4 x 6.3 cm with 22.3SUV. Local extent is better assessed on recent pelvic MRI. Hypermetabolic lymph nodes in the bilateral pelvic sidewalls. A rightinternal iliac node measures 1.6 x 0.8 cm with 5.0 SUV. A left externaliliac node measures 1.5 x 1.2 cm with 4.6 SUV. Small soft tissue nodule in the fat anterior to the uterus, measuring 0.7x 0.6 cm, below PET resolution but with activity up to 2.0 SUV. Stasis of excreted radiotracer throughout the left urinary collectingsystem without hydronephrosis. MUSCULOSKELETAL: Diffusely increased marrow activity without suspicious osseous lesions. IMPRESSION IMPRESSION 1. Intensely hypermetabolic cervical mass, consistent with biopsy provenmalignancy. Local invasion in better assessed on recent pelvic MRI.However, concern for left ureteral involvement given stasis of excretedradiotracer throughout the left collecting system withouthydronephrosis. 2. Hypermetabolic shelby metastases in the pelvic sidewalls. 3. Small but mildly active soft tissue nodule in the fat anterior to theuterus may represent an additional node or peritoneal implant. Hafsa Abarca MD [facility] Final Result documented in this encounter Visit Diagnoses Diagnosis Squamous cell carcinoma of cervix (HCC) Malignant neoplasm of cervix uteri, unspecified site documented in this encounter Administered Medications Inactive Administered Medications - up to 3 most recent administrations Medication Order MAR Action Action Date Dose Rate Site fludeoxyglucose f-18 (Fdg) inj 10.83 millicurie 10.83 millicurie, Intravenous, ONCE, On Zoe 08/10/24 at 0726, For 1 dose, Radiology Medication Routing (Non-IR) Given 08/10/2024 7:16 AM EST 10.83 millicuries sodium chloride 0.9 % flush/inj 10 mL 10 mL, IV Push, ONCE, On Zoe 08/10/24 at 0726, For 1 dose, Do not flush if lock, PICC, or central line not in place; IV infusing or unable to flush., Radiology Medication Routing (Non-IR) Given 08/10/2024 7:16 AM EST 10 mL documented in this encounter
--- OUTSIDE RECORDS SUMMARY | 2024-09-19 23:27 | External Medical Summary | Summary of Care ---
Author Name Unknown Organization [facility] Address [address] [facility] [place] [address] Phone [phone] Care Team Providers Care Spring Up Supervisor Name Role Phone Unavailable Primary Care Provider Unavailabl e Encounter Details Date Type Department Care Team (Late st Contact Info) Description 08/18/2024 Orders Only Access [facility] [address] [facility] *DO NOT REMOVE THIS DEPARTMENT* [place] [address] Request, External Referral Allergies No known active [...] 1:00 PM EST Office Visit Radiation Oncology, [place] [address] [place] [address] Uriel Akins MD [address] [place] [address] Health Maintenance Due Date Last [...]
--- OUTSIDE RECORDS SUMMARY | 2024-09-19 23:27 | External Medical Summary | Summary of Care ---
Author Name Unknown Organization [facility] Address [address] [place] [address] Phone [phone] Care Team Providers Care Supervisor Metal Hanging Name Role Phone Unavailable Primary Care Provider Unavailabl e Encounter Details Date Type Department Care Team (Late st Contact Info) Description 08/28/2024 Orders Only Hematology/Oncology Treatment, [place] [address] [place] [phone] Chitra Bass MD [address] [place] [address] Allergies No known active allergiesdocumented as of [...] Ed by Nurse Hematology/Oncology State Manoj Avendaño [address] [place] [address] [place] [address] Nurse Nori Hem Onc [address] [place] [address] Health Maintenance Due Date Last Done Comments Lipid Panel 1980 Hepatitis C Screening 1998 DTap/Tdap Vaccines (1 - Tdap) 1999 Hepatitis B Vaccine (1 of 3 - 19+ 3-dose series) 1999 Pneumococcal Vaccine: Pediatrics (0 to 5 Years) and At-Risk Patients (6 to 18 Years and 19+ Years) (1 of 2 - PCV) 1999 Depression Screening 04/30/2021 04/30/2020 COVID-19 Vaccine (1 - 2024-2 5 season) 2024 Influenza Vaccine (FLU shot) [...]
--- OUTSIDE RECORDS SUMMARY | 2024-09-19 23:27 | External Medical Summary | Summary of Care ---
Author Name Unknown Organization [facility] Address [address] [place] [address] Phone [phone] Care Team Providers Care Sole Leather Cutting Machine Operator Name Role Phone Unavailable Primary Care Provider Unavailabl e Reason for Visit * Precert (Within 10 days (routine)) - Closed Specialty Diagnoses / Procedures Referred By Sujit t Referred To Contact Radiology Diagnoses Squamous cell carcinoma of cervix (HCC) Procedures PET CT SKULL BASE TO MID-THIGH FDG Hafsa Abarca MD [address] [place] [address] Phone: tel: fax: Referral ID Status Reason Start Date Expiration Date V isits Requested Visits Authorized [id number] Closed Precert 08/02/2024 01/29/2025 1 1 Encounter Details Date Type Department Care Team (Latest Contact Info) Description 08/10/2024 6:53 AM EST - 08/10/2024 11:59 PM [facility] Hospital Encounter PET CT IMAGING, [facility] [address] [place], [place] [id number] Arrived Discharge Disposition: Home - Self Care Allergies No known active allergiesdocumented as of this encounter (statuses as of 08/11/2024) Medications traMADol HCl 50 MG Oral Tablet (Ultram) Take 1 Tablet by mouth every 6 hours as needed for Pain, Moderate. 30 Tablet 01/09/202 5 Active Ibuprofen 600 MG Oral Tablet [...] as of this encounter Plan of Treatment Health Maintenance [...] EST Squamous cell carcinoma of cervix (HCC) GLUCOSE METER, POINT OF CARE SINTIA 08/10/2024 7:08 AM EST documented in this encounter Results * GLUCOSE METER, POINT OF CARE (08/10/2024 7:08 AM EST) GLUCOSE - POCT 81 70 - 120 mg/dL 08/10/2024 7:09 AM EST [facility] / Unknown 08/10/2024 7:08 AM EST 08/10/2024 7:09 AM EST us No Physician Data Unknown LAB POINT OF C ARE TEST DOCKED DEVICE UNSOLICITED RESULTS Final Result [facility] [address] [place] [address] documented in this encounter
--- OUTSIDE RECORDS SUMMARY | 2024-09-19 23:27 | External Medical Summary | Summary of Care ---
Author Name Unknown Organization [facility] Address [address] [place] [address] Phone [phone] Care Team Providers Care Lever Miller Name Role Phone Unavailable Primary Care Provider Unavailabl e Reason for Visit * Reason Onset Date Comments Referral 08/03/2024 Encounter Details Date Type Department Care Team (Late st Contact Info) Description 08/03/2024 Telephone Radiation Oncology, [place] [address] [place], [place] [phone] Hafsa Abarca MD [address] [place] [address] Referral Allergies No known active allergiesdocumented as of this encounter (statuses as of 08/08/2024) Medications traMADol HCl 50 MG Oral Tablet [...] as of this encounter (statuses as of 08/08/2024) Active Problems Problem Noted Date Diagnosed Date Squamous cell carcinoma of cervix 07/31/2024 Tobacco use documented as of this encounter (statuses as of 08/08/2024) Resolved Problems Problem Noted Date Diagnosed Date Resolved Date Encounter for supervision of other normal 01/31/2002 04/26/2002 Overview (11/26/2015): ICD-10 update of inactive term documented as of this encounter (statuses as of 08/08/2024) Social History Tobacco Use Types Packs/Day Years [...] encounter Miscellaneous Notes * Telephone Encounter - Hafsa Ralph OSA - 08/08/2024 3:38 PM EST Spoke with Paty in Radiology and moved pt's appointment up to 08/10/2024 at [facility] * Telephone Encounter - Hafsa Ralph OSA - 08/07/2024 12:36 PM EST Left a message with Judy in Radiology at [facility] requesting a sooner appointment if possible for pt. * Telephone Encounter - Hafsa Ralph OSA - 08/03/2024 10:42 AM EST Left voicemail for pt, requested return call. * Telephone Encounter - Denise Resendiz OSA - 08/03/2024 9:42 AM EST Patient calling because she would like to go to [facility] for the radiation oncology referral since it is closer to her. Please advise. Thank you documented in this encounter Plan of Treatment Upcoming Encounters Date Type Department Care Team (Late st Contact Info) Description 08/10/2024 7:15 AM EST Appointment PET CT IMAGING, [facility] [address] [place] [address] Health Maintenance Due Date Last Done Comments [...]
--- OUTSIDE RECORDS SUMMARY | 2024-09-19 23:27 | External Medical Summary | Summary of Care ---
Author Name Unknown Organization [facility] Address [address] [place] [address] Phone [phone] Care Team Providers Care Wire Cutter Name Role Phone Unavailable Primary Care Provider Unavailabl e Reason for Visit * Reason Onset Date Comments Precert Future 08/29/2024 Cisplatin/ RT +k eytruda Encounter Details Date Type Department Care Team (Late st Contact Info) Description 08/29/2024 Telephone Hematology/Oncology Treatment, [place] [address] [place] [address] Chitra Bass MD [address] [place] [address] Precert Future (Cisplatin/ RT +keytruda) Allergies No [...] cisplatin/ RT, patient will also get keytruda. [place] plan built and routed for signature. Waiting for auth. Consent signed 08/28/24. Education visit 08/31/24. Patient needs hep B labs. TT sent to [facility] rad/onc to confirm when they will be ready to start. Neto: please update post hydration- per Dr Bass, would like 1L NSS with 10mEq KCl and 1g mag. Thanks! documented in this encounter Plan of Treatment Upcoming Encounters Date Type Department Care Team (Late st Contact Info) Description 08/31/2024 11:00 AM EST Pt Ed by Nurse Hematology/Oncology State Manoj Avendaño [address] [place] [address] [address] Hem On[address] [facility] [address] [facility] [place] [address] Scheduled Orders Name Type Priority Associated Diagnoses [...]
--- OUTSIDE RECORDS SUMMARY | 2024-09-19 23:27 | External Medical Summary | Summary of Care ---
Author Name Unknown Organization [facility] Address [address] [place] [address] Phone [phone] Care Team Providers Care Industrial Tractor Driver Name Role Phone Unavailable Primary Care Provider Unavailabl e Encounter Details Date Type Department Care Team (Late st Contact Info) Description 08/25/2024 1:00 PM EST Office Visit Radiation Oncology, [place] [address] [place] [address] Uriel Akins MD [address] [place] [address] Squamous cell carcinoma of cervix (HCC)* Allergies [...] Akins MD - 08/25/2024 1:48 PM EST See note documented in this encounter Plan of Treatment Upcoming Encounters Date Type Department Care Team (Late st Contact Info) Description 08/28/2024 1:00 PM EST Office Visit Hematology/Oncology State Manoj Avendaño [address] [place] [address] [address] Chitra Bass MD [address] [place] [address] [address] Health Maintenance Due Date Last Done Comments [...]
--- OUTSIDE RECORDS SUMMARY | 2024-09-19 23:27 | External Medical Summary | Summary of Care ---
Author Name Unknown Organization [facility] Address [address] [place] [address] Phone [phone] Care Team Providers Care Director Drug Safety Name Role Phone Unavailable Primary Care Provider Unavailabl e Reason for Visit * Reason Onset Date Comments Precert Future 08/29/2024 Cisplatin/ RT +k eytruda Encounter Details Date Type Department Care Team (Late st Contact Info) Description 08/29/2024 Telephone Hematology/Oncology Treatment, [place] [address] [place] [address] Chitra Bass MD [address] [place] [address] Precert Future (Cisplatin/ RT +keytruda) Allergies No [...] cisplatin/ RT, patient will also get keytruda. [place] plan built and routed for signature. Waiting for auth. Consent signed 08/28/24. Education visit 08/31/24. Patient needs hep B labs. TT sent to [facility] rad/onc to confirm when they will be ready to start. Neto: please update post hydration- per Dr Bass, would like 1L NSS with 10mEq KCl and 1g mag. Thanks! documented in this encounter Plan of Treatment Upcoming Encounters Date Type Department Care Team (Late st Contact Info) Description 08/31/2024 11:00 AM EST Pt Ed by Nurse Hematology/Oncology State Manoj Avendaño [address] [place] [address] Nurse Nori Hem Onc [facility] [address] [facility] [place] [address] Scheduled Orders Name Type Priority Associated Diagnoses [...]
--- OUTSIDE RECORDS SUMMARY | 2024-09-19 23:27 | External Medical Summary | Summary of Care ---
Author Name Unknown Organization [facility] Address [address] [place] [address] Phone [phone] Care Team Providers Care Hall Manager Name Role Phone Unavailable Primary Care Provider Unavailabl e Reason for Visit * Reason Onset Date Comments Imaging Records Request 08/03/2024 Encounter Details Date Type Department Care Team (Late st Contact Info) Description 08/03/2024 Telephone Radiology Film File [address] [place], [place] [phone] Support, Imaging Radiology [address] [place] [address] Imaging Records Request Allergies No known active allergiesdocumented as of this encounter (statuses as of 08/03/2024) Medications traMADol HCl 50 MG Oral Tablet [...] as of this encounter (statuses as of 08/03/2024) Active Problems Problem Noted Date Diagnosed Date Squamous cell carcinoma of cervix 07/31/2024 Tobacco use documented as of this encounter (statuses as of 08/03/2024) Resolved Problems Problem Noted Date Diagnosed Date Resolved Date Encounter for supervision of other normal 01/31/2002 04/26/2002 Overview (11/26/2015): ICD-10 update of inactive term documented as of this encounter (statuses as of 08/03/2024) Social History Tobacco Use Types Packs/Day Years [...] encounter Miscellaneous Notes * Telephone Encounter - Mable Miles, System Support - 08/03/2024 3:39 PM EST [facility] Car reviews requesting MRI pelvis 07/20/24, US pelvis 06/23/24 images be pushed through PACS. Moran Authorization to Release on file. Images pushed to [employer] PACS external connection. documented in this encounter Plan of Treatment Upcoming Encounters Date Type Department Care Team (Late st Contact Info) Description 08/17/2024 9:30 AM EST Appointment PET CT IMAGING, [facility] [address] [place] [address] Health Maintenance Due Date Last [...]
--- OUTSIDE RECORDS SUMMARY | 2024-09-19 23:27 | External Medical Summary | Summary of Care ---
Author Name Unknown Organization [facility] Address [address] [place] [address] Phone [phone] Care Team Providers Care Top Cutter Name Role Phone Unavailable Primary Care Provider Unavailabl e Reason for Visit * Reason Onset Date Comments Referral 08/03/2024 Encounter Details Date Type Department Care Team (Late st Contact Info) Description 08/03/2024 Telephone Radiation Oncology, [place] [address] [place], [place] [phone] Hafsa Abarca MD [address] [place] [address] Referral Allergies No known active allergiesdocumented as of this encounter (statuses as of 08/07/2024) Medications traMADol HCl 50 MG Oral Tablet [...] as of this encounter (statuses as of 08/07/2024) Active Problems Problem Noted Date Diagnosed Date Squamous cell carcinoma of cervix 07/31/2024 Tobacco use documented as of this encounter (statuses as of 08/07/2024) Resolved Problems Problem Noted Date Diagnosed Date Resolved Date Encounter for supervision of other normal 01/31/2002 04/26/2002 Overview (11/26/2015): ICD-10 update of inactive term documented as of this encounter (statuses as of 08/07/2024) Social History Tobacco Use Types Packs/Day Years [...] a message with Judy in Radiology at [facility] requesting a sooner appointment if possible for pt. * Telephone Encounter - Hafsa Ralph OSA - 08/03/2024 10:42 AM EST Left voicemail for pt, requested return call. * Telephone Encounter - Denise Resendiz OSA - 08/03/2024 9:42 AM EST Patient calling because she would like to go to [facility] for the radiation oncology referral since it is closer to her. Please advise. Thank you documented in this encounter Plan of Treatment Upcoming Encounters Date Type Department Care Team (Late st Contact Info) Description 08/17/2024 9:30 AM EST Appointment PET CT IMAGING, [facility] [address] [place] [address] Health Maintenance Due Date Last [...]
--- OUTSIDE RECORDS SUMMARY | 2024-09-19 23:27 | External Medical Summary | Summary of Care ---
Author Name Unknown Organization [facility] Address [address] [place] [address] Phone [phone] Care Team Providers Care Plywood Layup Line Core Layer Name Role Phone Unavailable Primary Care Provider Unavailabl e Reason for Visit * Reason Onset Date Comments Referral 08/28/2024 Encounter Details Date Type Department Care Team (Late st Contact Info) Description 08/28/2024 Telephone General Surgery, [place] [address] [place] [address] Services, [facility] [address] [place] [address] Referral Allergies No known active allergiesdocumented as [...] No 06/07/2024 Does the household have a up health systemr source of income? (Household - for ages [...] encounter Miscellaneous Notes * Telephone Encounter - Karina Theodore LPN - 08/28/2024 1:43 PM EST Referral from: Dr. Bass Consult: General Surgery For: port placement Referral received as detailed above. Will notify dept of referral, as per workflow. Ruby Theodore LPN Intake Nurse Navigator General Surgery and Breast Clinic [facility] documented in this encounter Plan of Treatment Upcoming Encounters Date Type Department Care Team (Late st Contact Info) Description 08/31/2024 11:00 AM EST Pt Ed by Nurse Hematology/Oncology State Manoj Avendaño [address] [place] [address] Nurse Nori Hem Onc [place] [address] [place] [address] Health Maintenance Due Date Last Done Comments [...]
--- OUTSIDE RECORDS SUMMARY | 2024-09-19 23:27 | External Medical Summary | Summary of Care ---
Author Name Unknown Organization [facility] Address [address] [place] [facility] [place] [address] Phone [phone] Care Team Providers Care Water Tester Name Role Phone Unavailable Primary Care Provider Unavailabl e Reason for Visit * Reason Onset Date Comments abnormal pap 08/15/2024 Pap Close the Lo op Encounter Details Date Type Department Care Team (Late st Contact Info) Description 08/15/2024 Telephone Gynecology/Obstetrics [facility] [address] [place] [address] Nitza Dodge PA-C [address] [place] [phone] abnormal pap (Pap Close the Loop) Allergies No known active allergiesdocumented as of this encounter (statuses as of 08/15/2024) Medications traMADol HCl 50 MG Oral Tablet [...] as of this encounter (statuses as of 08/15/2024) Active Problems Problem Noted Date Diagnosed Date Squamous cell carcinoma of cervix 07/31/2024 Tobacco use documented as of this encounter (statuses as of 08/15/2024) Resolved Problems Problem Noted Date Diagnosed Date Resolved Date Encounter for supervision of other normal 01/31/2002 04/26/2002 Overview (11/26/2015): ICD-10 update of inactive term documented as of this encounter (statuses as of 08/15/2024) Social History Tobacco Use Types Packs/Day Years [...] Miscellaneous Notes * Telephone Encounter - Amanda Bonner LPN - 08/15/2024 10:13 AM EST Care Gaps Pap Close the Loop (follow up for abnormal pap smear) Date pap completed: 06/08/24 Results of pap: HGSIL Provider recommendation: Colposcopy Outreach Taken: outreach not indicated completed recommended follow-up documented in this encounter Plan of Treatment [...]
--- OUTSIDE RECORDS SUMMARY | 2024-09-19 23:27 | External Medical Summary | Summary of Care ---
Author Name Unknown Organization [facility] Address [address] [place] [address] Phone [phone] Care Team Providers Care Benefits Administrator Name Role Phone Unavailable Primary Care Provider Unavailabl e Encounter Details Date Type Department Care Team (Late st Contact Info) Description 08/25/2024 1:00 PM EST Office Visit Radiation Oncology, [place] [address] [place] [address] Uriel Akins MD [address] [place] [address] Squamous cell carcinoma of cervix (HCC)* Allergies No known active allergiesdocumented as of this encounter (statuses as of 08/25/2024) Medications traMADol HCl 50 MG Oral Tablet [...] as of this encounter (statuses as of 08/25/2024) Active Problems Problem Noted Date Diagnosed Date Squamous cell carcinoma of cervix 07/31/2024 Tobacco use documented as of this encounter (statuses as of 08/25/2024) Resolved Problems Problem Noted Date Diagnosed Date Resolved Date Encounter for supervision of other normal 01/31/2002 04/26/2002 Overview (11/26/2015): ICD-10 update of inactive term documented as of this encounter (statuses as of 08/25/2024) Social History Tobacco Use Types Packs/Day Years [...] Chitra Bass MD [address] [place] [address] Health Maintenance Due Date Last Done Comments [...]
--- OUTSIDE RECORDS SUMMARY | 2024-09-19 23:28 | External Medical Summary | Summary of Care ---
Author Name Unknown Organization [facility] Address [address] [place] [address] Phone [phone] Care Team Providers Care Summer Analyst Name Role Phone Unavailable Primary Care Provider Unavailabl e Reason for Referral * Precert (Within 10 days (routine)) - Pending Review Specialty Diagnoses / Procedures Referred By Contac t Referred To Contact Radiology Diagnoses Squamous cell carcinoma of cervix (HCC) Procedures PET CT SKULL BASE TO MID THIGH PSMA Ashlee Ya CRNP [address] [place] [address] Phone: tel: fax: Referral ID Status Reason Start Date Expiration Date V isits Requested Visits Authorized [id number] Pending Review 08/07/[phone] * Evaluate & Treat - Unlimited Visits (Within 10 days (routine)) - Authorized Specialty Diagnoses / Procedures Referred By Contac t Referred To Contact Gynecologic Oncology / Gynecology Oncology Diagnoses Squamous cell carcinoma of cervix (HCC) Ashlee Ya CRNP [address] [place] [address] Phone: tel: fax: Referral ID Status Reason Start Date Expiration Date Visits Requested Visits Authorized [id number] Authorized Specialty Services Required 07/31/[phone] Question Answer Referral Priority Within 10 days (routine) Where should this appointment be scheduled? [facility] Reason for Visit * Reason Onset Date Comments Test Results 07/31/2024 Encounter Details Date Type Department Care Team (Late st Contact Info) Description 07/31/2024 Telephone Gynecology/Obstetrics [place]y Conteh [address] [place] [address] [place], VIVEK Hernandez [address] [place] [address] Test Results Allergies No known active allergiesdocumented as of this encounter (statuses as of 07/31/2024) Medications predniSONE 20 MG Oral Tablet (DELTASONE)Eleni cations:Dermati tis 2 tablets daily for 5 days then 1 tablet daily 15 Tab 0 Active Additional Information Patient not taking.Reported on 07/25/2024 HYDROcodone-Rocael taminophen 5-325 MG Oral Tablet 3 Active Ibuprofen 600 MG Oral Tablet (Motrin)Indicat ions:Pelvic pain in female Take 1 tablet every 6 hours as needed for pain. 30 Tablet 3 4 Active documented as of this encounter (statuses as of 07/31/2024) Active Problems Problem Noted Date Diagnosed Date Squamous cell carcinoma of cervix 07/31/2024 Tobacco use documented as of this encounter (statuses as of 07/31/2024) Resolved Problems Problem Noted Date Diagnosed Date Resolved Date Encounter for supervision of other normal 01/31/2002 04/26/2002 Overview (11/26/2015): ICD-10 update of inactive term documented as of this encounter (statuses as of 07/31/2024) Social History Tobacco Use Types Packs/Day Years [...] encounter Miscellaneous Notes * Telephone Encounter - Molly Gallardo LPN - 07/31/2024 1:14 PM EST Patient notified. * Addendum Note - Ashlee Ya CRNP - 07/31/2024 12:45 PM EST Addended by: ASHLEE YA on: 07/31/2024 12:45 PM Modules accepted: Orders * Telephone Encounter - Ashlee Ya CRNP - 07/31/2024 12:44 PM EST PET scan ordered per silk brusher/onc request. This will help determine extent of disease. Please let pt know, and help schedule. Thanks! VIVEK Mabry * Telephone Encounter - Nitza Dodge PA-C - 07/31/2024 12:42 PM EST Thank you for the update. [facility] onc is requesting PET scan from skull to mid thigh in patient's with cervical cancer diagnosis. Could you see if she would be agreeable to this? If so, one of us can place the order. Thanks Hardeep! Nitza Dodge PA-C * Telephone Encounter - Ashlee Ya CRNP - 07/31/2024 12:31 PM EST Spoke w/pt and notified of cervical cancer diagnosis. Recommend silk brusher/onc referral, she is agreeable.Referral placed. Pt encouraged to reach out to this office if she has questions or concerns prior to her consult. VIVEK Mabry documented in this encounter Plan of Treatment Scheduled Orders Name Type Priority Associated Diagnoses Orde r Schedule PET CT SKULL BASE TO MID THIGH PSMA Medical Imaging Routine Squamous cell carcinoma of cervix (HCC) Expected: 08/07/2024 (Approximate), Expires: 08/31/2025 Scheduled Referrals Name Type Priority Associated Diagnoses Orde r Schedule CARD FEEDER/ONC REFERRAL OP Referral Within 10 da ys (routine) Squamous cell carcinoma of cervix (HCC) Ordered: 07/31/2024 Health Maintenance Due Date Last Done Comments [...] (FLU shot) (#1) 2024 Mammogram 06/23/2025 06/23/2024 Pap Smear 06/08/2027 06/08/2024, 10/11/2001 Cervical Cancer Screening 06/08/2029 HPV/Co-Test 06/08/2029 06/08/2024 HPV (Gardasil) Vaccine Aged Out No lo nger eligible based on patient's age to complete this topic MENINGOCOCCAL (MENACTRA/MENVEO) Aged Out No longer eligible b ased on patient's age to complete this topic documented as of this encounter Medical Devices Not on filedocumented as of this encounter Visit Diagnoses Diagnosis Squamous cell carcinoma of cervix (HCC)- Primary Malignant neoplasm of cervix uteri, unspecified site documented in this encounter
--- OUTSIDE RECORDS SUMMARY | 2024-09-19 23:28 | External Medical Summary | Summary of Care ---
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 Name Role Phone Unavailable Primary Care Provider Unavailabl e Encounter Details Date Type Department Care Team (Late st Contact Info) Description 06/09/2024 Telephone Gynecology/Obstetrics [facility] [address] [place] [id number] Nitza Dodge PA-C [address] [place] [id number] Allergies No known active allergiesdocumented as of this encounter (statuses as of 06/09/2024) Medications predniSONE 20 MG Oral Tablet (DELTASONE)Eleni cations:Dermati tis 2 tablets daily for 5 days then 1 tablet daily 15 Tab 0 Active Additional Information Patient not taking.Reported on 02/18/2023 HYDROcodone-Rocael taminophen 5-325 MG Oral Tablet 3 Active Ibuprofen 600 MG Oral Tablet (Motrin)Indicat ions:Pelvic pain in female Take 1 tablet every 6 hours as needed for pain. 30 Tablet 2 4 Active documented as of this encounter (statuses as of 06/09/2024) Active Problems No known active problems documented as of this encounter (statuses as of 06/09/2024) Resolved Problems Problem Noted Date Diagnosed Date Resolved Date Encounter for supervision of other normal 01/31/2002 04/26/2002 Overview (11/26/2015): ICD-10 update of inactive term documented as of this encounter (statuses as of 06/09/2024) Social History Tobacco Use Types Packs/Day Years [...] encounter Miscellaneous Notes * Telephone Encounter - Stacy Rivas RN - 06/09/2024 1:25 PM EST ----- Message from Nitza Dodge sent at 06/09/2024 1:07 PM EST ----- Please inform patient her vaginosis culture was negative for infection. Thanks! JACINTO CarreraC documented in this encounter Plan of Treatment Upcoming Encounters Date Type Department Care Team (Late st Contact Info) Description 06/23/2024 12:30 PM EST Imaging Radiology [address] [place] [id number] 06/23/2024 1:30 PM EST Imaging Radiology [address] [place] [address] Health Maintenance Due Date Last Done Comments Lipid Panel 1980 Pneumococcal Vaccine: Pediat rics (0 to 5 Years) and At-Risk Patients (6 to 64 Years) (1 of 2 - PCV) 1986 Hepatitis C Screening 1998 DTap/Tdap Vaccines (1 - Tdap) 1999 Hepatitis B Vaccine (1 of 3 - 19+ 3-dose series) 1999 Pap Smear 10/11/2004 10/11/2001 Cervical Cancer Screening 2010 HPV/Co-Test 2010 Mammogram 2020 Depression Screening 04/30/2021 04/30/2020 COVID-19 Vaccine (1 - 2023-2 5 season) 2024 Influenza Vaccine (FLU shot) (#1) 2024 HPV (Gardasil) Vaccine Aged Out No lo nger eligible based on patient's age to complete this topic MENINGOCOCCAL (MENACTRA/MENVEO) Aged Out No longer eligible based on patient's age to complete this topic documented as of this encounter Medical Devices Not on filedocumented as of this encounter
--- OUTSIDE RECORDS SUMMARY | 2024-09-19 23:28 | External Medical Summary | Summary of Care ---
Author Name Unknown Organization [facility] Address [address] [place] [address] Phone [phone] Care Team Providers Care Yarn Wrapper Name Role Phone Unavailable Primary Care Provider Unavailabl e Reason for Referral * Precert (Within 10 days (routine)) - Pending Review Specialty Diagnoses / Procedures Referred By Contac t Referred To Contact Radiology Diagnoses Pelvic pain in female Abnormal pelvic ultrasound Procedures MRI PELVIS W WO CONTRAST Corrina Stafford PA-C [address] [place] [address] Phone: tel: fax: Referral ID Status Reason Start Date Expiration Date V isits Requested Visits Authorized [id number] Pending Review 06/26/2024 999 [id number] Reason for Visit * 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 Details Date Type Department Care Team (Latest Contact Info) Description 06/08/2024 3:00 PM EST Office Visit Gynecology/Obstetric s [facility] [address] [place] [id number] Corrina Stafford PA-C [address] [place] [address] Women's annual routine gynecological examination*; Encounter for screening mammogram for malignant neoplasm of breast; Vaginal discharge; DUB (dysfunctional uterine bleeding); Pelvic pain in female; Abnormal pelvic ultrasound Allergies No known active allergiesdocumented as of this encounter (statuses as of 06/26/2024) Medications predniSONE 20 MG Oral Tablet (DELTASONE)Ind ications:[place] titis 2 tablets daily for 5 days then 1 tablet daily 15 Tab 04/30/20 Active Additional Information Patient not taking.Reported on 02/18/2023 HYDROcodone-Ac etaminophen 5-325 MG Oral Tablet 01/27/20 23 Active Ibuprofen 600 MG Oral Tablet (Motrin)Indica tions:Pelvic pain in female Take 1 tablet every 6 hours as needed for pain. 30 Tablet 2 06/08/20 24 Active Naproxen Sodium 220 MG Oral Capsule (Aleve) Take 1 Capsule by mouth 2 times a day with morning and evening meals. 024 Discontinued documented as of this encounter (statuses as of 06/26/2024) Active Problems No known active problems documented as of this encounter (statuses as of 06/26/2024) Resolved Problems Problem Noted Date Diagnosed Date Resolved Date Encounter for supervision of other normal 01/31/2002 04/26/2002 Overview (11/26/2015): ICD-10 update of inactive term documented as of this encounter (statuses as of 06/26/2024) Social History Tobacco Use Types Packs/Day Years Used Date Smoking Tobacco: Every Day Cigarettes 0.5 7 Smokeless Tobacco: Never Tobacco Cessation:Ready to Q uit: Not Asked; Counseling Given: Not Answered Comments:Reporting 10 daily Alcohol Use Standard Drinks/Week [...] Sign Reading Time Taken Comments Blood Pressure 124/84 06/08/2024 2:45 PM EST Pulse - - Temperature - - Respiratory Rate - - Oxygen Saturation - - Inhaled Oxygen Concentration - - Weight 60.8 kg (134 lb) 06/08/2024 2:45 PM EST Height 158.8 cm (5' 2.5") 06/08/2024 2:45 PM EST Body Mass Index 24.12 06/08/2024 2:45 PM EST documented in this encounter Progress Notes * Corrina Stafford PA-C - 06/08/2024 3:06 PM EST Luanne Farrell 06/08/2024 CC: Women's Wellness Exam HPI: Luanne Farrell is a 44 year old female here for her women's wellness exam. She has several concerns at today's visit. LMP was 06/05/2024. Over the last 6 months, her periods have become more irregular. She is reporting constant light spotting that varies from bright red to dark brown in color. Every 2 weeks, she will have "period" bleeding that lasts 3-5 days. Flow is intermittent, sometimes having to change a pad/tampon every 4-6 hours when it is its heaviest. Occasionally passes clots the size of a quarter. She is reporting pelvic pain and cramping both with and without periods. She is cramping every day.Has been taking Aleve which helps after a few hours when she takes it. She is not currently sexually active and denies concerns for or STIs. She is also reporting an increase in vaginal discharge and odor since her irregular bleeding started. Describes the odor as a "sweet/sour" in smell. Performs SBE. Notes no changes or concerns. She is agreeable to scheduling first mammogram today. She denies a hx of abnormal Pap smears. Last Pap: 2001 - NILM. Agreeable to updating today. OB History Para Term AB Living 2 2 2 1 SAB IAB Ectopic Multiple Live Births # Outcome Date GA Lbr Aidan/2nd Weight Sex Type Anes PTL Lv 2 Term Vag-Spont 1 Term Vag-Spont Past Medical History: Diagnosis Date NO KNOWN PROBLEMS Past Surgical History: Procedure Laterality Date REMOVAL OF KNEE CYST ([facility]OSO'S) Family History Family History Problem Relation Name Age of Onset Breast Cancer No significant family history Colon cancer No significant family history Uterine cancer No significant family history Endometrial cancer No significant family history Ovarian cancer No significant family history Social History Social History Socioeconomic History Marital status: Number of children: 2 Tobacco Use Smoking status: Every Day Current packs/day: 0.50 Average packs/day: 0.5 packs/day for 7.0 years (3.5 ttl pk-yrs) Types: Cigarettes Smokeless tobacco: Never Tobacco comments: cut down to 4-5 daily Substance and Sexual Activity Alcohol use: Yes Comment: social Drug use: No Sexual activity: Not Currently Partners: Male Social Needs Financial Resource Strain: Low Risk (06/07/2024) Financial Resource Strain Do you have any trouble paying for your medications, or do you think you might in the future? (Adult - for ages 18 years and over): No Food Insecurity: No Food Insecurity (06/07/2024) Food Insecurity Do you need food for this week? (Adult - for ages 18 years and over): No Transportation Needs: No Transportation Needs (06/07/2024) Transportation Needs Has lack of transportation kept you from medical appointments, meetings, work, or from getting things needed for daily living? Check all that apply. (Adult - for ages 18 years and over): No Social Connections: Socially Integrated (06/07/2024) Social Connections How often do you feel lonely or isolated from those around you? (Adult - for ages 18 years and over): Rarely Housing Stability: Low Risk (06/07/2024) Housing Stability Do you currently live in a alf or have no steady place to sleep at night? (Adult - for ages 18 years and over): No Are you homeless or worried that you might be in the future? (Adult - for ages 18 years and over): No Medications Current Outpatient Medications Medication Sig Dispense Refill Naproxen Sodium 220 MG Oral Capsule (Aleve) Take 1 Capsule by mouth 2 times a day with morning and evening meals. predniSONE 20 MG Oral Tablet (DELTASONE) 2 tablets daily for 5 days then 1 tablet daily (Patient not taking: Reported on 02/18/2023) 15 Tab 0 HYDROcodone-Acetaminophen 5-325 MG Oral Tablet (Patient not taking: Reported on 02/18/2023) No current facility-administered medications for this visit. Allergies Review of patient's allergies indicates: No Known Allergies ROS See HPI above for pertinent positives/negatives. Physical Exam BP 124/84 | Ht 1.588 m (5' 2.5") | Wt 60.8 kg (134 lb) | LMP 06/05/2024 | BMI 24.12 kg/m | BSA 1.64 m General: awake, alert, and oriented x 3, NAD Neck: supple without adenopathy, thyroid normal size, non-tender, without nodularity Cardiac: regular rate and rhythm no murmur Lungs: clear to auscultation Abdomen: soft, non-tender, normal bowel sounds, no masses or organomegaly, no inguinal nodes Neuro: no focal motor/sensory deficits, gait normal Breasts: declined Pelvic: external genitalia and vagina anatomy within normal limits, no vulvar lesions, no significant vaginal discharge. Vaginal bleeding noted consistent with history. Cervix normal in appearance without lesions or purulent discharge, uterus is normal size, shape, and consistency, adnexa normal bilaterally, no abnormal pelvic masses. Vaginosis culture obtained with swab. 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 Name of diabetes territory manager: Lilliam Slaughter LPN. 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 Encounter for screening mammogram for malignant neoplasm of breast - MAMMOGRAM SCREENING EMIR BILATERAL; Future; Expected date: 06/08/2024 - Encouraged regular breast self-awareness. Encouraged annual mammograms. Order placed and patient to schedule. Vaginal discharge - VAGINOSIS PANEL, PCR DUB (dysfunctional uterine bleeding) - US PELVIS TRANS-VAGINAL NON-OB Pelvic pain in female - US PELVIS TRANS-VAGINAL NON-OB - Ibuprofen 600 MG Oral Tablet (Motrin); Take 1 tablet every 6 hours as needed for pain. - Instructed to take Rx with meals. 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 Will follow-up with results of Pap, vaginosis culture,and U/S to guide follow-up. Discussed treatments to include NSAIDs, control, or surgical management. Will reach out with further recommendations. Follow-Up: RTO pending results and sooner PRN with further concerns. Call the office with any problems, questions, concerns. Corrina Stafford PA-C 06/08/2024 documented in this encounter Nursing Notes * Lilliam Herrera LPN - 06/08/2024 2:56 PM EST Patient identified Luanne Reno Stanleyck by name and date of . Patient here for yearly exam. Complaints: pelvic pain wrapping around into low back- varying in intensity everyday. Spotting constant. This all started in the past 4-6 months. Last pap: 2002- normal Last Mammogram: na Last Dexa: na Last Colonoscopy: na Type of Contraception: none Pt here for chlamydia screen. no My [facility] is a way you can talk to your provider online through e-mail. May I activate it for you? ALREADY ACTIVE Do you need any refills while you are here? no Lilliam Slaughter LPN 06/08/2024 2:56 PM documented in this encounter Miscellaneous Notes * Addendum Note - Corrina Stafford PA-C - 06/26/2024 8:47 AM EST Addended by: CORRINA STAFFORD on: 06/26/2024 08:47 AM Modules accepted: Orders * Result Encounter Note - Corrina Stafford PA-C - 06/26/2024 8:47 AM EST Please inform patient her recent ultrasound is showing a questionable fat containing fibroid near the lower uterine segment, near her cervix. Radiology is recommending follow-up imaging with a pelvicMRI. If agreeable, I have placed the order and she may be scheduled. Further recommendations for her pelvic pain will be dependent on results of follow-up imaging. Thanks! Corrina Stafford PA-C * Addendum Note - Corrina Stafford PA-C - 06/23/2024 3:57 PM EST Addended by: CORRINA STAFFORD on: 06/23/2024 03:57 PM Modules accepted: Orders * Result Encounter Note - Corrina Stafford PA-C - 06/14/2024 4:58 PM EST Please inform patient her recent Pap smear results HSIL and HPV was positive. Should be scheduled for colposcopy at this time. Thanks! Corrina Stafford PA-C * Result Encounter Note - Corrina Stafford PA-C - 06/09/2024 1:07 PM EST Please inform patient her vaginosis culture was negative for infection. Thanks! Corrina Stafford PA-C documented in this encounter Plan of Treatment Upcoming Encounters Date Type Department Care Team (Late st Contact Info) Description 07/25/2024 9:00 AM EST Office Visit Gynecology/Obstetrics [facility] [address] [place] [address] [place], VIVEK Hernandez [address] [place] [address] Scheduled Orders Name Type Priority Associated Diagnoses Orde r Schedule MAMMOGRAM SCREENING EMIR BILATERAL Medical Imaging Routine Encounter for screening mammogram for malignant neoplasm of breast Expected: 06/25/2025 (Approximate), Expires: 07/23/2025 MRI PELVIS W WO CONTRAST Medical Imaging Routine Pelvic pain in female Abnormal pelvic ultrasound Expected: 06/26/2024, Expires: 07/27/2025 Health Maintenance Due Date Last Done Comments Lipid Panel 1980 Pneumococcal Vaccine: Pediatrics (0 to 5 Years) and At-Risk Patients (6 to 64 Years) (1 of 2 - PCV) 1986 Hepatitis C Screening 1998 DTap/Tdap Vaccines (1 - Tdap) 1999 Hepatitis B Vaccine (1 of 3 - 19+ 3-dose series) 1999 Depression Screening 04/30/2021 04/30/2020 COVID-19 Vaccine [...] Procedure Name Priority Date/Time Associated Diagnosis Comments US PELVIS TRANS-VAGINAL NON-OB Routine 06/23/2024 1:23 PM EST DUB (dysfunctional uterine bleeding) Pelvic pain in female VAGINOSIS PANEL, PCR Routine 06/08/2024 3:58 PM EST Vaginal discharge HUMAN PAPILLOMA VIRUS, PROBE Routine 06/08/2024 3:58 PM EST Women's annual routine gynecological examination 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 Lower uterine segment mass is indeterminate for a fat containing fibroid versus other lesion. Pelvic MRI with and without contrast should be considered. 2. Small anterior uterine body fibroid. In compliance with act 112, the RENU (radiology office services representative) was contacted to invoke system generated communication of the patient's results. Narrative 06/24/2024 2:30 PM EST EXAM: US PELVIS TRANS-VAGINAL NON-OB - 06/23/2024 HISTORY: Pelvic pain TECHNIQUE: Transvaginal pelvic ultrasound. COMPARISON: None FINDINGS: LMP: 06/05/2024, day 19 of the cycle UTERUS: 11.6 cm x 4.4 cm x 6.5 cm. Questionable arcuate morphology. MYOMETRIUM: Heterogeneous. A small anterior predominantly intramural 2.3 x 1.9 x 1.7 cm fibroid is noted with a small subserosal component. An additional 6.9 x 6.0 x 6.5 cm mass is seen inferiorly near the lower uterine segment/cervix which demonstrates a hypoechoic central region and could reflect a fatty fibroid. ENDOMETRIUM: 5.9 mm in thickness, within normal limits. RIGHT OVARY: 2.2 cm x 1.2 cm x 2.1 cm, 2.9 ml Unremarkable LEFT OVARY: 3.5 cm x 1.8 cm x 2.0 cm, 6.6 ml Unremarkable MISCELLANEOUS: No significant free fluid. Procedure Note Hieu Jimenez MD - 06/24/2024 EXAM: US PELVIS TRANS-VAGINAL NON-OB - 06/23/2024 HISTORY: Pelvic pain TECHNIQUE: Transvaginal pelvic ultrasound. COMPARISON: None FINDINGS: LMP: 06/05/2024, day 19 of the cycle UTERUS: 11.6 cm x 4.4 cm x 6.5 cm. Questionable arcuate morphology. MYOMETRIUM: Heterogeneous. A small anterior predominantly intramural 2.3x 1.9 x 1.7 cm fibroid is noted with a small subserosal component. Anadditional 6.9 x 6.0 x 6.5 cm mass is seen inferiorly near the loweruterine segment/cervix which demonstrates a hypoechoic central region andcould reflect a fatty fibroid. ENDOMETRIUM: 5.9 mm in thickness, within normal limits. RIGHT OVARY: 2.2 cm x 1.2 cm x 2.1 cm, 2.9 ml Unremarkable LEFT OVARY: 3.5 cm x 1.8 cm x 2.0 cm, 6.6 ml Unremarkable MISCELLANEOUS: No significant free fluid. IMPRESSION IMPRESSION: 1. Lower uterine segment mass is indeterminate for a fat containingfibroid versus other lesion. Pelvic MRI with and without contrast shouldbe considered. 2. Small anterior uterine body fibroid. In compliance with act 112, the RENU (radiology office services representative) wascontacted to invoke system generated communication of the patient'sresults. us Corrina Stafford PA-C RAD ULTRASOUND F inal Result * MAMMOGRAM SCREENING EMIR BILATERAL (06/23/2024 1:21 PM EST) Anatomical Region Laterality Modality Breast Bilateral Mammography Narrative 06/23/2024 2:00 PM EST Result MAMMOGRAM SCREENING EMIR BILATERAL History Encounter for screening mammogram for malignant neoplasm of breast The patient has no documented relevant family history. Films Compared This is the patient's baseline mammogram. Findings The breasts are heterogeneously dense, which may obscure small masses. There is no evidence of suspicious masses, calcifications, or other abnormal findings. Impression Bilateral No mammographic evidence of malignancy. BI-RADS Category: 1 - Negative. Recommendation Screening mammogram in 1 year is recommended for both breasts. Digital breast tomosynthesis was performed. This digital mammogram has been analyzed with the computer aided detection system. Breast tissue can be either dense or not dense. Dense tissue makes it harder to find breast cancer on a mammogram and also raises the risk of developing breast cancer. Your breast tissue is dense. In some people with dense tissue, other imaging tests in addition to a mammogram may help find cancers. Talk to your healthcare provider about breast density, risks for breast cancer, and your individual situation. This examination [place] [address]. [phone] Corrina Stafford PA-C RAD MAMMOGRAPHY F inal Result * (ABNORMAL) HUMAN PAPILLOMA VIRUS, PROBE (06/08/2024 3:58 PM EST) Pathologist [facility] Human Papilloma Virus Result Positive (A) Not Applicable 06/14/2024 3:20 PM EST LABORATORY [facility] Comment: One or more high/intermediate-risk Human Papillomavirus (HPV E6/E7 messenger RNA) detected by nucleic acid amplification. This assay looks for high/intermediate risk Human Papillomavirus (HPV E6/E7 messenger RNA) by nucleic acid amplification. This assay includes the qualitative detection of HPV types 16,18,31,33,35,39,45,51,52,56,58,59,66 and 68 from cervical specimens. This assay has been FDA cleared for Thin prep collection vials. This assay has not been approved for use as a primary screening test for HPV and should be tested in conjunction with a PAP screen. If collected utilizing a Surepath vial, the collection and specimen preparation of this test was developed, and its performance characteristics determined by [facility]. It has not been cleared or approved by the U.S. Food and Drug Administration (FDA). The FDA has determined that such clearance or approval is not necessary. This assay has been performed at [facility], [address] [place] [address]. [address]. Pap Test Specimen from wound / Unknown 06/08/2024 3:58 PM EST 06/12/2024 4:37 AM EST Corrina Stafford PA-C LAB MICRO - GENER AL ORDERABLES Final Result Performing Organization Address [facility] Co de [place] [address] * VAGINOSIS PANEL, PCR (06/08/2024 3:58 PM EST) Bacterial Vaginosis Result Negative Negative 06/09/2024 12:00 PM EST LABORATORY [facility] Comment:Negative for Bacteri al Vaginosis. Correlate results with other clinical findings. Daiana species Result Negative Negative 06/09/2024 12:00 PM EST LABORATORY [facility] Comment:No Daiana species g roup RNA detected. Correlate results with other clinical findings. Daiana glabrata Result Negative Negative 06/09/2024 12:00 PM EST LABORATORY [facility] Comment:No Daiana glabrata RNA detected. Correlate results with other clinical findings. Trichomonas Result Negative Negative 06/09/2024 12:00 PM EST LABORATORY [facility] Comment:No Trichomonas vagin iwona RNA detected. Swab Specimen from wound / Unknown 06/08/2024 3:58 PM EST 06/08/2024 3:58 PM EST Corrina Stafford PA-C LAB MICRO - GENER AL ORDERABLES Final Result Performing Organization Address [facility] Co de Phone [place] [address] * AUTO SLIP COVER INSTALLER PAP SCREEN (06/08/2024 3:58 PM EST) Final Diagnosis A. Cervix, SurePath Pap test: Adequacy: Satisfactory for evaluation; no transformation zone component identified. Interpretation: Epithelial cell abnormality: High-grade squamous intraepithelial lesion (HSIL, [facility] System). The process may involve the endocervix. AUTOMATED REVIEW: Focal Point computerized screening device (quintile 1, review). NOTE: Positive HPV results noted below. Recommend clinical correlation and correlation with current management guidelines. 06/14/2024 3:20 PM EST LABORATORY [facility] Performing Labs Artillery Specialist screening performed at [facility] ([facility] [address] [place] [id number]. Pathologist sign out performed at [facility] [address] [place] [id number]. 06/14/2024 3:20 PM EST LABORATORY [facility] Gross Description A. Cervix. SurePath vial received labeled with the patient's identification. 06/14/2024 3:20 PM EST LABORATORY [facility] EDUCATIONAL NOTE: The Pap test (thin-layer cervical screening specimen) is a screening test that aids in the detection of cervical cancer and cancer precursors. Both false positive and false negative results can occur. The test should be used at regular intervals (as per the ASCCP guidelines) and positive results should be confirmed before definitive therapy. Discrepancies between the Pap test findings and clinical impressions should be resolved with diagnostic tests such as colposcopy and biopsy. 06/14/2024 3:20 PM EST LABORATORY [facility] Case Report Gynecologic Cytology Report Case: [id number] Authorizing Provider: Corrina Stafford Collected: 06/08/2024 03:58 PM BART Gill Ordering Location: Gynecology/Obstetr ics Received: 06/08/2024 03:58 PM Rusty Conteh First Screen: Enma Montes CT(ASCP) Pathologist: Garcia Crum MD Specimen: SurePath Pap test, Cervix 06/14/2024 3:20 PM EST LABORATORY [facility] PAP Indication for Procedure: Routine Pap 06/14/2024 3:20 PM EST [facility] PAP Previous Cancer: None 06/14/2024 3:20 PM EST LABORATORY [facility] HPV Permissions: HPV Regardless (Including cotest) 06/14/2024 3:20 PM EST [facility] PAP Contraceptive History: None 06/14/2024 3:20 PM EST [facility]ATORY [facility] PAP Menstrual Status: Pre-menopausal 06/14/2024 3:20 PM EST LABORATORY [facility] Pap Test Specimen from wound / Unknown 06/08/2024 3:58 PM EST 06/08/2024 3:58 PM EST us Corrina Stafford PA-C LAB CYTOLOGY RUBIN CELESTIN Final Result LABORATORY [facility] [address] [place] [address] documented in this encounter Visit Diagnoses Diagnosis Women's annual routine gynecological examination- Primary Encounter for screening mammogram for malignant neoplasm of breast Other screening mammogram Vaginal discharge Leukorrhea, not specified as infective DUB (dysfunctional uterine bleeding) Other disorder of menstruation and other abnormal bleeding from female genital tract Pelvic pain in female Unspecified symptom associated with female genital organs Abnormal pelvic ultrasound Nonspecific (abnormal) findings on radiological and other examination of genitourinary organs Encounter for screening mammogram for malignant neoplasm of breast Other screening mammogram documented in this encounter
--- OUTSIDE RECORDS SUMMARY | 2024-09-19 23:28 | External Medical Summary | Summary of Care ---
Author Name Unknown Organization [facility] Address [address] [place] [address] Phone [phone] Care Team Providers Care Equipment Service Associate Name Role Phone Unavailable Primary Care Provider Unavailabl e Reason for Referral * Evaluate & Treat - Unlimited Visits (Within 10 days (routine)) - Authorized Specialty Diagnoses / Procedures Referred By Sujit t Referred To Contact Radiation Oncology Diagnoses Cervical cancer, FIGO stage III (HCC) Hafsa Abarca MD [address] [place] [address] Phone: tel: fax: Referral ID Status Reason Start Date Expiration Date Visits Requested Visits Authorized [id number] Authorized Specialty Services Required 08/03/2024 [id number] Question Answer Referral Priority Within 10 days (routine) Where should this appointment be scheduled? External Comments Newly diagnosed Cervical Cancer; Likely stage 3; will have [facility] rad onc treatment planning but desires EBRT closer to home. Thanks * Evaluate & Treat - Unlimited Visits (Within 10 days (routine)) - Authorized Specialty Diagnoses / Procedures Referred By Sujit t Referred To Contact Radiation Oncology Diagnoses Cervical cancer, FIGO stage III (HCC) Hafsa Abarca MD [address] [place] [address] Phone: tel: fax: Referral ID Status Reason Start Date Expiration Date Visits Requested Visits Authorized [id number] Authorized Specialty Services Required 08/02/2024 [id number] Question Answer Referral Priority Within 10 days (routine) Where should this appointment be scheduled? [facility] What is the [place] to have this [place] performed[place] [facility] [place] Cervical Cancer - At least stage 3 Reason for Visit * Reason Comments Consultation * Evaluate & Treat - Unlimited Visits (Within 10 days (routine)) - Authorized Specialty Diagnoses / Procedures Referred By Sujit alberts Referred To Contact Gynecologic Oncology / Gynecology Oncology Diagnoses Squamous cell carcinoma of cervix (HCC) Yvonne Tadeo CRNP [address] [place] [address] Phone: tel: fax: Referral ID Status Reason Start Date Expiration Date Visits Requested Visits Authorized [id number] Authorized Specialty Services Required 07/31/2024 [id number] Encounter Details Date Type Department Care Team (Late st Contact Info) Description 08/02/2024 2:00 PM EST Office Visit Gynecology/Oncology, [place] [address] [place] [address] Hafsa Abarca MD [address] [place] [address] Cervical cancer, FIGO stage III (HCC)*; Pelvic pain in female Allergies No known active allergiesdocumented as of this encounter (statuses as of 08/03/2024) Medications traMADol HCl 50 MG Oral Tablet (Ultram) Take 1 Tablet by mouth every 6 hours as needed for Pain, Moderate. 30 Tablet 08/03/19 25 Active Ibuprofen 600 MG Oral Tablet (Motrin)Indica tions:Pelvic pain in female Take 1 tablet every 6 hours as needed for pain. 30 Tablet 3 08/03/19 25 Active Polyethylene Glycol 3350 17 GM/SCOOP Oral Powder (MiraLax) Take 17 g by mouth daily as needed for Constipation. One heaping tablespoon in 8 ounces of water or juice; for severe constipation. 510 g 3 08/03/19 25 Active predniSONE 20 MG Oral Tablet (DELTASONE)Ind ications:[place] titis 2 tablets daily for 5 days then 1 tablet daily 15 Tab 04/30/20 20 025 Discontinued HYDROcodone-Ac etaminophen 5-325 MG Oral Tablet 01/27/20 23 025 Discontinued Ibuprofen 600 MG Oral Tablet (Motrin)Indica tions:Pelvic pain in female Take 1 tablet every 6 hours as needed for pain. 30 Tablet 3 07/21/20 24 025 Discontinued(Re fill) documented as of this encounter (statuses as [...] Sign Reading Time Taken Comments Blood Pressure 123/71 08/02/2024 1:43 PM EST Pulse - - Temperature - - Respiratory Rate 20 08/02/2024 1:43 PM EST Oxygen Saturation - - Inhaled Oxygen Concentration - - Weight - - Height 158 cm (5' 2.2") 08/02/2024 1:43 PM EST Body Mass Index - - documented in this encounter Patient Instructions * Patient Instructions* Hafsa Abarca MD - 08/02/2024 2:52 PM EST [email or web address] documented in this encounter Progress Notes * Hafsa Abarca MD - 08/02/2024 2:00 PM EST Gynecologic Oncology [facility] CC: 44 year old female who presents today for evaluation of cervical cancer at the request of Yvonne DOYLE. HPI: Luanne Farrell is a 44 year old with PMH notable for tobacco use who initially presented to care for cervical cancer. Ms. Farrell presents to clinic with her and mother; they are appropriately concerned about her diagnosis and have good questions. She began experiencing abdominal pain and irregular bleeding a few months ago. She presented to a manager social who performed a pap smear and pelvic ultrasound which found "Lower uterine segment mass is indeterminate for a fat containing fibroid versus other lesion. Pelvic MRI with and without contrast should be considered." She underwent colposcopy and MRI in June which returned squamous cell cancer. She had an MRI which found a 6cm mass in the cervix and enlarged external iliac node. She continues to have dischargeand abdominal pain. She has been taking ibuprofen 600mg with minimal relief. She has reduced her tobacco use and is working on quitting. 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 She is voiding and having normal bowel movements with over the counter stoolsofteners; she had some constipation recently without the help of medication. 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 HISTORY: Menstrual Status: Pre-menopausal Pap smear history: No recent pap aside from May 2024 Hormone Use: None Hysterectomy: no Prior ovarian/tubal surgery: No Urinary or fecal issues: No PAST OB HISTORY: x2 OB History 2 Para 2 Term 2 AB Living 1 SAB IAB Ectopic Multiple Live Births HEALTH MAINTENANCE: Mammogram: 05/2024 ; BI-RADS category 1 Last Pap: See HPI Colonoscopy: N/A Past Surgical History: Procedure Laterality Date REMOVAL OF KNEE CYST ([facility]) Past Medical History: Diagnosis Date Squamous cell carcinoma of cervix (HCC) 07/31/2024 Tobacco use Patient Active Problem List Diagnosis Tobacco use Squamous cell carcinoma of cervix (HCC) Current Outpatient Medications Medication Sig Dispense Refill [...] juice; for severe constipation. 510 g 3 No current facility-administered medications for this visit. 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 (Adult - for ages 18 years and over): No Are you homeless or worried that you might be in the future? (Adult - for ages 18 years and over): No PHYSICAL EXAM: BP 123/71 (BP Site: Left Arm, BP Position: Sitting, BP Cuff Size: Regular) | Resp 20 | Ht 1.58 m (5' 2.2") | LMP (LMP Unknown) | BMI 24.35 kg/m | BSA 1.63 m General: no acute distress, alert and oriented, and appropriate mood and affect Neck: supple, normal range of motion Lungs: normal respiratory effort and lungs clear to auscultation bilaterally CV: normal rate and regular rhythm Abdomen: soft, nondistended, and no palpable mass Groin: no palpable inguinal lymphadenopathy Pelvic: Normal external female genitalia, necrotic discharge noted in vagina; entire cervical face replaced with tumor; parametrial involvement anteriorly and patient left; normal recto-vaginal exam with normal plane between uterus/cervix and rectum; normal rectal tone; moderate discomfort with bimanual exam Extremities: warm and well-perfused and no appreciable lower extremity edema Neuro: grossly intact, fluent speech, attentive Skin: visible skin warm and dry without specific lesions Patient Account Analyst Documentation Patient Account Analyst present due to sensitive exam. Patient Account Analyst: Daisy Vasquez LABS: Pathology biopsy 07/25/24: A. Endometrium, biopsy: -- Fragments of necrotic [...] with invasive squamous cell carcinoma, moderately differentiated. -- See comment. IMAGING: MRI Pelvis 07/20/24: FINDINGS: UTERUS: Anteverted, measuring 10.0 cm in length. Partial septate morphology. Myometrium: Subserosal 1.6 cm homogeneous enhancing leiomyoma at the left body. Endometrium: The endometrium in the fundus measures 6 mm in thickness, within normal limits. The endometrium in the body and lower uterine segment is effaced. Junctional zone: Measures up to 1.2 cm in thickness, suspicious for adenomyosis. LOWER UTERINE SEGMENT AND CERVIX: Solid lobulated 6.0 x 6.1 x 6.1 cm mass centered at the cervix and lower uterine segment is relatively hyperintense relative to the expected low signal cervical stroma and demonstrates restricted diffusion, heterogeneous postcontrast enhancement, and a nonenhancingregion centrally which may represent the endocervical canal containing a small amount of fluid and air as the air blooms on in phase images relative to out of phase images (9:23). There is apparent loss of the normal T2 hypointense stromal ring of the cervix at the lateral aspects of the mass with extension of abnormal signal toward the parametrium (11: 18 and 19). The vesicouterine pouch is effac ed but an intact low T2 signal plane/stromal ring of the cervix separates the mass from the incompletely distended urinary bladder. RIGHT OVARY: Unremarkable. LEFT OVARY: Unremarkable. URINARY BLADDER: Unremarkable. LYMPH NODES: Enlarged left external iliac lymph node measuring 1.3 cm in short axis (16:36). Prominent right external iliac lymph node measuring 0.9 cm in short axis (16:31). BOWEL: Visualized bowel is unremarkable. MUSCULOSKELETAL: Visualized bones are unremarkable. MISCELLANEOUS: No significant free fluid. IMPRESSION: 1. Solid 6.1 cm mass centered in the cervix and lower uterine segment, for which the differential diagnosis includes malignancy. 2. Enlarged left external iliac lymph node measuring 1.3 cm in short axis. ASSESSMENT AND PLAN: This is a 44 year old woman with a newly diagnosed squamous cervical cancer; she is not a candidate for surgery and will likely require chemoRT for locally advanced disease. Cervical Cancer : Likely stage 3C1 She was counseled extensively about the etiology (including HPV) and recommended treatment for cervical cancer and grade and stage was reviewed as appropriate Discussed potential roles of surgical versus non surgical approaches, including chemoRT (weekly sensitizing cisplatin) and chemotherapy only. We discussed that she is not a surgical candidate given size of tumor and parametrial involvement. We discussed that she likely has node positive disease making her stage 3 PET Scan ordered; my office will work to get it sooner than 08/21/24 [email or web address] as she will need brachytherapy here at [facility] She desires EBRT radiation treatment closer to home than [place], if possible, will place referrals at [facility] for radiation oncology Her PDL-1 testing is pending; pending stage can consider addition of pembrolizumab to treatment Tobacco Use: She is working on cessation; discussed importance of cessation Pelvic Pain: Rx for Tramadol written; she did not desire oxycodone, we discussed that it may be necessary Discussed Miralax for management of constipation Discussed baseline alternating of tylenol/ibuprofen Q6 Hours She was given written information detailing our recommendations and understands these recommendations could change with any new information. Hafsa Abarca MD MPH Gynecologic Oncologist [facility] documented in this encounter Plan of Treatment Upcoming Encounters Date Type Department Care Team (Late st Contact Info) Description 08/17/2024 9:30 AM EST Appointment PET CT IMAGING, [facility] [address] [place] [address] Scheduled Referrals Name Type Priority Associated Diagnoses Orde r Schedule RADIATION/ONCOLOGY REFERRAL OP Referral Within 10 days (routine) Cervical cancer, FIGO stage III (HCC) Ordered: 08/02/2024 RADIATION/ONCOLOGY REFERRAL OP Referral Within 10 days (routine) Cervical cancer, FIGO stage III (HCC) Ordered: 08/03/2024 Health Maintenance Due Date Last Done Comments [...] as of this encounter Visit Diagnoses Diagnosis Cervical cancer, FIGO stage III (HCC)- Primary Pelvic pain in female Unspecified symptom associated with female genital organs documented in this encounter
--- OUTSIDE RECORDS SUMMARY | 2024-09-19 23:28 | External Medical Summary | Summary of Care ---
Author Name Unknown Organization [facility] Address [address] [place] [address] Phone [phone] Care Team Providers Care Javascript Web Developer Name Role Phone Unavailable Primary Care Provider Unavailabl e Encounter Details Date Type Department Care Team (Late st Contact Info) Description 06/09/2024 Telephone Gynecology/Obstetrics [facility] [address] [place] [address] Nitza Dodge PA-C [address] [place] [address] Allergies No known active allergiesdocumented as of [...] Description 06/23/2024 12:30 PM EST Imaging Radiology [address] [place] [address] 06/23/2024 1:30 PM EST Imaging Radiology [address] [place] [address] Health Maintenance Due Date Last Done Comments [...]
--- OUTSIDE RECORDS SUMMARY | 2024-09-19 23:28 | External Medical Summary | Summary of Care ---
Author Name Unknown Organization [facility] Address [address] [facility] [place] [address] Phone [phone] Care Team Providers Care Debarker Operator Name Role Phone Unavailable Primary Care Provider Unavailabl e Encounter Details Date Type Department Care Team (Late st Contact Info) Description 06/15/2024 Telephone Gynecology/Obstetrics [facility] [address] [place] [address] Nitza Dodge PA-C [address] [place] [address] Allergies No known active allergiesdocumented as of this encounter (statuses as of 06/15/2024) Medications predniSONE 20 MG Oral Tablet (DELTASONE)Eleni [...] as of this encounter (statuses as of 06/15/2024) Active Problems No known active problems documented as of this encounter (statuses as of 06/15/2024) Resolved Problems Problem Noted Date Diagnosed Date Resolved Date Encounter for supervision of other normal 01/31/2002 04/26/2002 Overview (11/26/2015): ICD-10 update of inactive term documented as of this encounter (statuses as of 06/15/2024) Social History Tobacco Use Types Packs/Day Years [...] Telephone Encounter - Molly Gallardo LPN - 06/15/2024 9:59 AM EST Patient notified and scheduled. * Telephone Encounter - Molly Gallardo LPN - 06/15/2024 9:38 AM EST ----- Message from Nitza Dodge sent at 06/14/2024 4:58 PM EST ----- Please inform patient her recent Pap smear results HSIL and HPV was positive. Should be scheduled for colposcopy at this time. Thanks! Nitza Dodge PA-C documented in this encounter Plan of Treatment Upcoming Encounters Date Type Department Care Team (Late st Contact Info) Description 06/23/2024 12:30 PM EST Imaging Radiology [address] [place] [address] 06/23/2024 1:30 PM EST Imaging Radiology [address] [place] [address] 07/25/2024 9:00 AM EST Office Visit Gynecology/Obstetrics [facility] [address] [place] [address] BackerYvonne CRNP [address] [place] [address] Health Maintenance Due Date Last Done Comments Lipid Panel 1980 Pneumococcal Vaccine: Pediatrics (0 to 5 Years) and At-Risk Patients (6 to 64 Years) (1 of 2 - PCV) 1986 Hepatitis C Screening 1998 DTap/Tdap Vaccines (1 - Tdap) 1999 Hepatitis B Vaccine (1 of 3 - 19+ 3-dose series) 1999 Mammogram 2020 Depression Screening 04/30/2021 04/30/2020 COVID-19 Vaccine (1 - 2023-2 5 season) 2024 Influenza Vaccine (FLU shot) (#1) 2024 Pap Smear 06/08/2027 06/08/2024, 10/11/2001 Cervical Cancer [...]
--- OUTSIDE RECORDS SUMMARY | 2024-09-19 23:28 | External Medical Summary | Summary of Care ---
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 Encounter Details Date Type Department Care Team (Latest Contact Info) Description 06/08/2024 3:00 PM EST Office Visit Gynecology/Obstetric s Rusty Conteh [address] [place] [address] Corrina Stafford PA-C [address] [place] [phone] Women's annual routine gynecological examination*; Encounter for screening mammogram for malignant neoplasm of breast; Vaginal discharge; DUB (dysfunctional uterine bleeding); Pelvic pain in female Allergies No known active allergiesdocumented as of this encounter (statuses as of 06/23/2024) Medications predniSONE 20 MG Oral Tablet (DELTASONE)Ind ications:[place] titis 2 tablets daily for 5 days then 1 tablet daily 15 Tab 04/30/20 20 Active Additional Information Patient not taking.Reported on 02/18/2023 HYDROcodone-Ac etaminophen 5-325 MG Oral Tablet 01/27/20 23 Active Ibuprofen 600 MG Oral Tablet (Motrin)Indica tions:Pelvic pain in female Take 1 tablet every 6 hours as needed for pain. 30 Tablet 2 11/14/20 24 Active Naproxen Sodium 220 MG Oral Capsule (Aleve) Take 1 Capsule by mouth 2 times a day with morning and evening meals. 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 Name of aircraft structural fitter: Lilliam Slaughter LPN. Assessment/Plan Women's annual routine gynecological examination (Primary) - ARCHAEOLOGIST PAP SCREEN; Future; Expected date: 06/08/2024 - [...] Instructed to take Rx with meals. Discussed ARCHAEOLOGIST causes of DUB and pelvic pain. Will [...] 06/08/2024 2:56 PM EST Patient identified Luanne Farrell by name and date of . Patient [...] 9:00 AM EST Office Visit Gynecology/Obstetrics [facility] [address] [place] [address] BackerYvonne CRNP [address] [place] [address] Pending Results Name Type Priority Associated Diagnoses Date /Time US PELVIS TRANS-VAGINAL NON-OB Medical Imaging Routine DUB (dysfunctional uterine bleeding) Pelvic pain in female 06/23/2024 1:23 PM EST Scheduled Orders Name Type Priority Associated Diagnoses Orde r Schedule MAMMOGRAM SCREENING EMIR BILATERAL Medical Imaging Routine Encounter for screening mammogram for malignant neoplasm of breast Expected: 06/25/2025 (Approximate), Expires: 07/23/2025 Health Maintenance Due Date Last Done Comments [...] Procedure Name Priority Date/Time Associated Diagnosis Comments VAGINOSIS PANEL, PCR Routine 06/08/2024 3:58 PM EST Vaginal discharge HUMAN PAPILLOMA VIRUS, PROBE Routine 06/08/2024 3:58 PM EST Women's annual routine gynecological examination ARCHAEOLOGIST PAP SCREEN Routine 06/08/2024 3:58 PM EST Women's annual routine gynecological examination documented in this encounter Results * MAMMOGRAM SCREENING EMIR BILATERAL (06/23/2024 1:21 [...] individual situation. [place] [address]. [phone] Corrina Stafford PA-C RAD MAMMOGRAPHY F inal Result * (ABNORMAL) HUMAN PAPILLOMA VIRUS, PROBE (06/08/2024 3:58 PM EST) Pathologist [facility] Human Papilloma Virus Result Positive (A) Not Applicable 06/14/2024 3:20 PM EST LAB[facility]ATORY [facility] Comment: One or more high/intermediate-risk Human Papillomavirus [...] developed, and its performance characteristics determined by [facility]. It has not been cleared or approved by the U.S. Food and Drug Administration (FDA). The FDA has determined that such clearance or approval is not necessary. This assay has been performed at [facility], [address] [place] [address]. [id number]. Pap Test Specimen from wound / Unknown 06/08/2024 3:58 PM EST 06/12/2024 4:37 AM EST Corrina Stafford PA-C LAB MICRO - GENER AL ORDERABLES Final Result Performing Organization Address [facility] de Phone Number LABORATORY [facility] [address] [place] [address] * VAGINOSIS PANEL, PCR (06/08/2024 3:58 PM EST) Bacterial Vaginosis Result Negative Negative 06/09/2024 12:00 PM EST [facility]ATORY [facility] Comment:Negative for Bacteri al Vaginosis. Correlate results with other clinical findings. Dainaa species Result Negative Negative 06/09/2024 12:00 PM EST [facility]ORY [facility] Comment:No Daiana species g roup RNA detected. Correlate results with other clinical findings. Daiana glabrata Result Negative Negative 06/09/2024 12:00 PM EST [facility] Comment:No Daiana glabrata RNA detected. Correlate results with other clinical findings. Trichomonas Result Negative Negative 06/09/2024 12:00 PM EST [facility]ORY [facility] Comment:No Trichomonas vagin iwona RNA detected. Swab Specimen from wound / Unknown 06/08/2024 3:58 PM EST 06/08/2024 3:58 PM EST Corrina Stafford PA-C LAB MICRO - GENER AL ORDERABLES Final Result Performing Organization Address [facility] de Phone Number LABORATORY [facility] [address] [place] [address] * ARCHAEOLOGIST PAP SCREEN (06/08/2024 3:58 PM EST) Final Diagnosis A. Cervix, SurePath Pap test: Adequacy: Satisfactory for evaluation; no transformation zone component identified. Interpretation: Epithelial cell abnormality: High-grade squamous intraepithelial lesion (HSIL, Edon System). The process may involve the endocervix. AUTOMATED REVIEW: Focal Point computerized screening device (quintile 1, review). NOTE: Positive HPV results noted below. Recommend clinical correlation and correlation with current management guidelines. 06/14/2024 3:20 PM EST [facility]ORY [facility] Performing Labs Toddler Lead Teacher [facility] [place] [address]. Pathologist sign out performed at [facility] [place] [address]. 06/14/2024 3:20 PM EST [facility]ORY [facility] Gross Description A. Cervix. SurePath vial received labeled with the patient's identification. 06/14/2024 3:20 PM EST [facility]ORY [facility] EDUCATIONAL NOTE: The Pap test (thin-layer cervical [...] and biopsy. 06/14/2024 3:20 PM EST [facility]ORY [facility] Case Report Gynecologic Cytology Report Case: [id number] Authorizing Provider: Corrina Stafford Collected: 06/08/2024 03:58 PM BART Gill Ordering Location: Gynecology/Obstetr ics Received: 06/08/2024 03:58 PM [facility] First Screen: Enma Montes CT(ASCP) Pathologist: Garcia Crum MD Specimen: SurePath Pap test, Cervix 06/14/2024 3:20 PM EST LAB[facility]ATORY [facility] PAP Indication for Procedure: Routine Pap 06/14/2024 3:20 PM EST LAB[facility]ATORY [facility] PAP Previous Cancer: None 06/14/2024 3:20 PM EST [facility] HPV Permissions: HPV Regardless (Including cotest) 06/14/2024 3:20 PM EST LAB[facility]ATORY [facility] PAP Contraceptive History: None 06/14/2024 3:20 PM EST LAB[facility]ATORY [facility] PAP Menstrual Status: Pre-menopausal 06/14/2024 3:20 PM EST LAB[facility] Pap Test Specimen from wound / Unknown 06/08/2024 3:58 PM EST 06/08/2024 3:58 PM EST us Corrina Stafford PA-C LAB CYTOLOGY RUBIN CELESTIN Final Result [facility]ATORY [facility] [address] [place] [address] documented in this encounter Visit Diagnoses Diagnosis Women's annual routine gynecological examination- Primary Encounter for screening mammogram for malignant neoplasm of breast Other screening mammogram Vaginal discharge Leukorrhea, not specified as infective DUB (dysfunctional uterine bleeding) Other disorder of menstruation and other abnormal bleeding from female genital tract Pelvic pain in female Unspecified symptom associated with female genital organs Encounter for screening mammogram for malignant neoplasm of breast Other screening mammogram documented in this encounter
--- OUTSIDE RECORDS SUMMARY | 2024-09-19 23:28 | External Medical Summary | Summary of Care ---
Author Name Unknown Organization [facility] Address [address] [place] [address] Phone [phone] Care Team Providers Care Periodontal Assistant Name Role Phone Unavailable Primary Care Provider Unavailabl e Reason for Referral * Evaluate & Treat - Unlimited Visits (Within 10 days (routine)) - Authorized Specialty Diagnoses / Procedures Referred By Sujit alberts Referred To Contact Gynecologic Oncology / Gynecology Oncology Diagnoses Squamous cell carcinoma of cervix (HCC) Yvonne Tadeo CRNP [address] [place] [address] Phone: tel: fax: Referral ID Status Reason Start Date Expiration Date Visits Requested Visits Authorized [id number] Authorized Specialty Services Required 07/31/[phone] Question Answer Referral Priority Within 10 days (routine) Where should this appointment be scheduled? [facility] Reason for Visit * Reason Onset Date Comments Test Results 07/31/2024 Encounter Details Date Type Department Care Team (Late st Contact Info) Description 07/31/2024 Telephone Gynecology/Obstetrics [facility] [address] [place] [address] Yvonne Tadeo CRNP [address] [place] [id number] Test Results Allergies No known active allergiesdocumented [...] encounter Miscellaneous Notes * Telephone Encounter - Nitza Dodge PA-C - 07/31/2024 12:42 PM EST Thank you for the update. Driver Recruiter onc is requesting PET scan from skull to mid thigh in patient's with cervical cancer diagnosis. Could you see if she would be agreeable to this? If so, one of us can place the order. Thanks Hardeep! Nitza Dodge PA-C * Telephone Encounter - Yvonne Tadeo CRNP - 07/31/2024 12:31 PM EST Spoke w/pt and notified of cervical cancer diagnosis. Recommend data processing systems consultant/onc referral, she is agreeable.Referral placed. Pt encouraged to reach out to this office if she has questions or concerns prior to her consult. VIVEK Mabry documented in this encounter Plan of Treatment Scheduled Referrals Name Type Priority Associated Diagnoses Orde r Schedule MORTGAGE LOAN OFFICER ORIGINATOR/ONC REFERRAL OP Referral Within 10 da ys [...]
--- OUTSIDE RECORDS SUMMARY | 2024-09-19 23:28 | External Medical Summary | Summary of Care ---
Author Name Unknown Organization [facility] Address [address] [place] [address] Phone [phone] Care Team Providers Care Associate Professor Of Biostatistics Name Role Phone Unavailable Primary Care Provider Unavailabl e Reason for Visit * Reason Comments Outpatient Testing Encounter Details Date Type Department Care Team (Late st Contact Info) Description 07/25/2024 9:20 AM EST Laboratory Laboratory, [facility] [address] [place] [id number] [facility] [address] [place] [address] Abnormal uterine bleeding (AUB) Allergies No known active allergiesdocumented as of this encounter (statuses as of 07/25/2024) Medications predniSONE 20 MG Oral Tablet (DELTASONE)Eleni [...] as of this encounter (statuses as of 07/25/2024) Active Problems Problem Noted Date Diagnosed Date Tobacco use documented as of this encounter (statuses as of 07/25/2024) Resolved Problems Problem Noted Date Diagnosed Date Resolved Date Encounter for supervision of other normal 01/31/2002 04/26/2002 Overview (11/26/2015): ICD-10 update of inactive term documented as of this encounter (statuses as of 07/25/2024) Social History Tobacco Use Types Packs/Day Years [...] as of this encounter Plan of Treatment Pending Results Name Type Priority Associated Diagnoses Date /Time CBC Lab Routine Abnormal uterine bleeding (AUB) 07/25/2024 9:29 AM EST TSH WITH FREE T4 IF INDICATED Lab Routine Abnormal uterine bleeding (AUB) 07/25/2024 9:29 AM EST Health Maintenance Due Date Last [...] as of this encounter Visit Diagnoses Diagnosis Abnormal uterine bleeding (AUB) documented in this encounter
--- OUTSIDE RECORDS SUMMARY | 2024-09-19 23:28 | External Medical Summary | Summary of Care ---
Author Name Unknown Organization [facility] Address [address] [place] [address] Phone [phone] Care Team Providers Care Boiler Riveter Name Role Phone Unavailable Primary Care Provider Unavailabl e Encounter Details Date Type Department Care Team (Late st Contact Info) Description 08/01/2024 Orders Only Gynecology/Oncology, [place] [address] [place] [address] Hafsa Abarca MD [address], [place] [id number] Squamous cell carcinoma of cervix (HCC)* Allergies No known active allergiesdocumented as of this encounter (statuses as of 08/01/2024) Medications predniSONE 20 MG Oral Tablet (DELTASONE)Eleni [...] as of this encounter (statuses as of 08/01/2024) Active Problems Problem Noted Date Diagnosed Date Squamous cell carcinoma of cervix 07/31/2024 Tobacco use documented as of this encounter (statuses as of 08/01/2024) Resolved Problems Problem Noted Date Diagnosed Date Resolved Date Encounter for supervision of other normal 01/31/2002 04/26/2002 Overview (11/26/2015): ICD-10 update of inactive term documented as of this encounter (statuses as of 08/01/2024) Social History Tobacco Use Types Packs/Day Years [...] 08/02/2024 2:00 PM EST Office Visit Gynecology/Oncology, [place] [address] [place] [address] Hafsa Abarca MD [address] [place] [address] Pending Results Name Type Priority Associated Diagnoses Date /Time ANATOMIC PATHOLOGY (BM/SURGICAL/CYTOLOGY) ADD ON REQUEST Lab Routine Squamous cell carcinoma of cervix (HCC) 08/01/2024 9:31 AM EST Health Maintenance Due Date Last [...]
--- OUTSIDE RECORDS SUMMARY | 2024-09-19 23:28 | External Medical Summary | Summary of Care ---
Author Name Unknown Organization [facility] Address [address] [place] [address] Phone [phone] Care Team Providers Care Plastic Battery Assembler Name Role Phone Unavailable Primary Care Provider Unavailabl e Reason for Visit * Reason Onset Date Comments Referral 08/03/2024 Encounter Details Date Type Department Care Team (Late st Contact Info) Description 08/03/2024 Telephone Radiation Oncology, [place] [address] [place], [place] [phone] Hafsa Abarca MD [address] [place] [address] Referral Allergies No known active [...] because she would like to go to [facility] for the radiation oncology referral since it is closer to her. Please advise. Thank you documented in this encounter Plan of Treatment Upcoming Encounters Date Type Department Care Team (Late st Contact Info) Description 08/17/2024 9:30 AM EST Appointment PET CT IMAGING, [facility] [address] [place] [address] Health Maintenance Due Date Last [...]
--- OUTSIDE RECORDS SUMMARY | 2024-09-19 23:28 | External Medical Summary ---
Author Name Unknown Address Unknown Organization K01:[facility] [address] [place] [address] Laboratory Report Ordering Provider Test Date Status MANDY ZAMBRANO 08/01/2024 09:31:00 Final New Cervical Cancer; need PD -L1 to see about upfront pembro. Thanks Observation Date Value Abnormality Reference (Units ) Status COMMENT 08/01/2024 09:31:00 PDL1 Final COMMENT 08/01/2024 09:31:00 Ordered by: Dr. Hafsa Abarca 08/01/24 Final COMMENT 08/01/2024 09:31:00 TT to [facility] 08/01/24 JCD Final COMMENT 08/01/2024 09:31:00 Slides to [facility] 08/01/24 JCD Final COMMENT 08/01/2024 09:31:00 Per [facility], ordered on E1 08/02/24 JCD Final Performing Location [facility] [address] [place] [address]
--- OUTSIDE RECORDS SUMMARY | 2024-09-19 23:28 | External Medical Summary | Summary of Care ---
Author Name Unknown Organization [facility] Address [address] [place] [address] Phone [phone] Care Team Providers Care Actuarial Trainee Name Role Phone Unavailable Primary Care Provider Unavailabl e Reason for Referral * Precert (Within 10 days (routine)) - Pending Review Specialty Diagnoses / Procedures Referred By Contac t Referred To Contact Radiology Diagnoses Squamous cell carcinoma of cervix (HCC) Procedures PET CT SKULL BASE TO MID THIGH PSMA Ashlee Ya CRNP [address] [place] [address] Phone: tel: fax: Referral ID Status Reason Start Date Expiration Date V isits Requested Visits Authorized [id number] Pending Review 08/07/[phone] * Evaluate & Treat - Unlimited Visits (Within 10 days (routine)) - Authorized Specialty Diagnoses / Procedures Referred By Contac t Referred To Contact Gynecologic Oncology / Gynecology Oncology Diagnoses Squamous cell carcinoma of cervix (HCC) Ashlee Ya CRNP [address] [place] [address] Phone: tel: fax: Referral ID Status Reason Start Date Expiration Date Visits Requested Visits Authorized [id number] Authorized Specialty Services Required 07/31/[phone] Question Answer Referral Priority Within 10 days (routine) Where should this appointment be scheduled? [facility] Reason for Visit * Reason Onset Date Comments Test Results 07/31/2024 Encounter Details Date Type Department Care Team (Late st Contact Info) Description 07/31/2024 Telephone Gynecology/Obstetrics Rusty Conteh [address] [place] [address] Backer, VIVEK Hernandez [address] [place] [address] Test Results Allergies No known active allergiesdocumented [...] encounter Miscellaneous Notes * Addendum Note - Ashlee Ya CRNP - 07/31/2024 12:45 PM EST Addended by: ASHLEE YA on: 07/31/2024 12:45 PM Modules accepted: Orders * Telephone Encounter - Ashlee Ya CRNP - 07/31/2024 12:44 PM EST PET scan ordered per hog pusher/onc request. This will help determine extent of disease. Please let pt know, and help schedule. Thanks! VIVEK Mabry * Telephone Encounter - Nitza Dodge PA-C - 07/31/2024 12:42 PM EST Thank you for the update. Bore Miner Operator onc is requesting PET scan from skull to mid thigh in patient's with cervical cancer diagnosis. Could you see if she would be agreeable to this? If so, one of us can place the order. Thanks Hardeep! Nitza Dodge PA-C * Telephone Encounter - Ashlee Ya CRNP - 07/31/2024 12:31 PM EST Spoke w/pt and notified of cervical cancer diagnosis. Recommend hog pusher/onc referral, she is agreeable.Referral placed. Pt encouraged [...] Type Priority Associated Diagnoses Orde r Schedule DRIER UNLOADER/ONC REFERRAL OP Referral Within 10 da ys [...]
--- OUTSIDE RECORDS SUMMARY | 2024-09-19 23:28 | External Medical Summary | Summary of Care ---
Author Name Unknown Organization [facility] Address [address] [place] [address] Phone [phone] Care Team Providers Care Telephoto Installer Name Role Phone Unavailable Primary Care Provider Unavailabl e Reason for Referral * Precert (Within 10 days (routine)) - Pending Review Specialty Diagnoses / Procedures Referred By Contac t Referred To Contact Radiology Diagnoses Squamous cell carcinoma of cervix (HCC) Procedures PET CT SKULL BASE TO MID THIGH PSMA Ashlee Ya CRNP [address] [place] [address] Phone: tel: fax: Referral ID Status Reason Start Date Expiration Date V isits Requested Visits Authorized [id number] Pending Review 08/07/[phone] * Evaluate & Treat - Unlimited Visits (Within 10 days (routine)) - Authorized Specialty Diagnoses / Procedures Referred By Contac t Referred To Contact Gynecologic Oncology / Gynecology Oncology Diagnoses Squamous cell carcinoma of cervix (HCC) Ashlee Ya CRNP [address] [place] [address] Phone: tel: fax: Referral ID Status Reason Start Date Expiration Date Visits Requested Visits Authorized [id number] Authorized Specialty Services Required 07/31/[phone] Question Answer Referral Priority Within 10 days (routine) Where should this appointment be scheduled? [facility] Reason for Visit * Reason Onset Date Comments Test Results 07/31/2024 Encounter Details Date Type Department Care Team (Late st Contact Info) Description 07/31/2024 Telephone Gynecology/Obstetrics Rusty Conteh [address] [place] [address] Backer, VIVEK Hernandez [address] [place] [address] Test Results Allergies No known active allergiesdocumented [...] 12:44 PM EST PET scan ordered per patient accounts manager/onc request. This will help determine extent of disease. Please let pt know, and help schedule. Thanks! VIVEK Mabry * Telephone Encounter - Nitza Dodge PA-C - 07/31/2024 12:42 PM EST Thank you for the update. Cake Washer onc is requesting PET scan from skull to mid thigh in patient's with cervical cancer diagnosis. Could you see if she would be agreeable to this? If so, one of us can place the order. Thanks Hardeep! Nitza Dodge PA-C * Telephone Encounter - Ashlee Ya CRNP - 07/31/2024 12:31 PM EST Spoke w/pt and notified of cervical cancer diagnosis. Recommend patient accounts manager/onc referral, she is agreeable.Referral placed. Pt encouraged [...] Type Priority Associated Diagnoses Orde r Schedule AGRICULTURAL EQUIPMENT SALES ENGINEER/ONC REFERRAL OP Referral Within 10 da ys [...]
--- OUTSIDE RECORDS SUMMARY | 2024-09-19 23:28 | External Medical Summary | Summary of Care ---
Author Name Unknown Organization [facility] Address [address] [facility] [place] [address] Phone [phone] Care Team Providers Care Cut Order Hand Name Role Phone Unavailable Primary Care Provider Unavailabl e Encounter Details Date Type Department Care Team (Late st Contact Info) Description 07/21/2024 Telephone Gynecology/Obstetrics, [address] [place] [id number] Nitza Dodge PA-C [address] [place] [address] Allergies No known active allergiesdocumented as of this encounter (statuses as of 07/21/2024) Medications predniSONE 20 MG Oral Tablet (DELTASONE)Ind ications:[facility] titis 2 tablets daily for 5 days then 1 tablet daily 15 Tab 0 Active Additional Information Patient not taking.Reported on 02/18/2023 HYDROcodone-Ac etaminophen 5-325 MG Oral Tablet 3 Active Ibuprofen 600 MG Oral Tablet (Motrin)Indica tions:Pelvic pain in female Take 1 tablet every 6 hours as needed for pain. 30 Tablet 3 4 Active Ibuprofen 600 MG Oral Tablet (Motrin)Indica tions:Pelvic pain in female Take 1 tablet every 6 hours as needed for pain. 30 Tablet 2 4 07/21/20 24 Discontin ued(Refil l) documented as of this encounter (statuses as of 07/21/2024) Active Problems No known active problems documented as of this encounter (statuses as of 07/21/2024) Resolved Problems Problem Noted Date Diagnosed Date Resolved Date Encounter for supervision of other normal 01/31/2002 04/26/2002 Overview (11/26/2015): ICD-10 update of inactive term documented as of this encounter (statuses as of 07/21/2024) Social History Tobacco Use Types Packs/Day Years [...] No 06/07/2024 Are you (or your family) yamikla eless or worried that you might be [...] Telephone Encounter - Nitza Dodge PA-C - 07/21/2024 12:35 PM EST T/C to patient at 12:35 to discuss recent MRI results. Patient verbalized understanding and all questions were answered at the time of phone call. Did state she was out of Rx Ibuprofen. Will send refills to preferred pharmacy. Patient strongly encouraged to reach out to the office with any questions or concerns. Will route patient for FYI to nurse [place]. Will also route to VIVEK Grewal whom patient is scheduled with 07/25/2024 for colposcopy/ECC. Planning to also complete endometrial biopsy at that appointment with results of recent ultrasound. I will send patient information on both of these procedures via [employer] message for review prior to appointment. Nitza Dodge PA-C 07/21/2024 documented in this encounter Plan of Treatment Upcoming Encounters Date Type Department Care Team (Late st Contact Info) Description 07/25/2024 9:00 AM EST Office Visit [facility] [address] [place] [address] Yvonne Tadeo CRNP [address] [place] [address] Health Maintenance Due Date Last Done Comments [...] as of this encounter Visit Diagnoses Diagnosis Pelvic pain in female Unspecified symptom associated with female genital organs documented in this encounter
--- OUTSIDE RECORDS SUMMARY | 2024-09-19 23:28 | External Medical Summary | Summary of Care ---
Author Name Unknown Organization [facility] Address [address] [place] [address] Phone [phone] Care Team Providers Care Medic Technician Name Role Phone Unavailable Primary Care Provider Unavailabl e Reason for Visit * Reason Comments Colposcopy Encounter Details Date Type Department Care Team (Late st Contact Info) Description 07/25/2024 9:00 AM EST Office Visit Gynecology/Obstetri [facility] [address] [facility] [place] [address] Yvonne Tadeo CRNP [address] [place] [address] HSIL (high grade squamous intraepithelial lesion) on Pap smear of cervix*; Abnormal uterine bleeding (AUB); Cervical mass Allergies No known active allergiesdocumented as of [...] Sign Reading Time Taken Comments Blood Pressure 126/78 07/25/2024 8:48 AM EST Pulse - - Temperature - - Respiratory Rate - - Oxygen Saturation - - Inhaled Oxygen Concentration - - Weight 60.8 kg (134 lb) 07/25/2024 8:48 AM EST Height - - Body Mass Index 24.12 06/08/2024 2:45 PM EST documented in this encounter Patient Instructions * Patient Instructions* Yvonne Tadeo CRNP - 07/25/2024 8:49 AM EST Post colposcopy instructions: You can expect a coffee ground discharge or light bleeding for about 1-2 weeks post procedure. Do not take Aspirin or aspirin-containing products ( it may increase the amount of vaginal bleedingand affect the ability to of the blood to clot). Take Tylenol or Advil for any discomfort Avoid heavy lifting, strenuous exercise, jogging, anything in the vagina ( intercourse, douching, tampons) for 7 days It is very important to keep all follow up appointments Call your health care provider if the following occurs: - Bright red vaginal bleeding- saturating a pad/hr - Foul smelling vaginal discharge - Pain - Fever of 100 degrees or greater documented in this encounter Progress Notes * Yvonne Tadeo CRNP - 07/25/2024 8:49 AM EST Colposcopy Procedure Luanne Farrell presents for colposcopy for evaluation of recent pap showing: HSIL +HPV. At her rn gynecology appt last month, she reported abnormal bleeding: "Over the last 6 months, her periods have become more irregular. She is reporting constant light spotting that varies from bright red to dark brown in color. Every 2 weeks, she will have "period" bleeding that lasts 3-5 days. Flow is intermittent, sometimes having to change a pad/tampon every 4-6 hours when it is its heaviest. Occasionally passes clots the size of a quarter. " Pelvic u/s with subsequent MRI showed a cervical/lower uterine segment mass. Previous pap smears: normal, last in 2001 BP 126/78 | Wt 60.8 kg (134 lb) | BMI 24.12 kg/m | BSA 1.64 m No LMP recorded. Reviewed in detail procedure, risks, benefits and indications. Urine Test: neg. Pt denies unprotected sex in the last 14 days. EXAM: US PELVIS TRANS-VAGINAL NON-OB - 06/23/2024 [...] demonstrates a hypoechoic central region and could reflecta fatty fibroid. ENDOMETRIUM: 5.9 mm in thickness, [...] considered. 2. Small anterior uterine body fibroid. EXAM: MRI PELVIS WITHOUT AND WITH CONTRAST HISTORY: Abnormal Ultrasound COMPARISON: None. TECHNIQUE: Multiplanar multisequence MRI of the pelvis without and with intravenous contrast was performed andreviewed. FINDINGS: UTERUS: Anteverted, measuring 10.0 cm in [...] node measuring 1.3 cm in short axis. Recommendation: Consider tissue sampling/colposcopy. Significant Abnormal Result: The information above was relayed directly by me via secure [employer] messaging to CORRINA STAFFORD on 07/21/2024 at 10:40 am who expressed understanding. Exam Ended: 07/20/24 16:54 Last Resulted: 07/21/24 10:47 A ''time out'' was initiated by VIVEK Mabry.The patient was identified by name and dateof . The correct procedure, and correct site identified. Correct positioning (as applicable). There is availability of necessary equipment. Pt states she is not allergic to latex. PE: bimanual exam: Not performed. external genitalia: No lesions. vagina: No lesions. and copious watery, malodorous discharge (neg vaginosis testing 05/2024) cervix: distorted in appearance. Necrotic appearing mass on R endocervix, friable; about 3 cm visualized. Dense aceto whitening and mosaicism at 1 o'clock, 6 o'clock, 9 o'clock. Transformation Zone: Incompletely seen Satisfactory Colposcopy: yes ECC: yes Cervix prepped with Betadine. Pipelle introduced into cervical canal and moderate amounts of tissueobtained and sent to pathology. Patient tolerated procedure well. Impression 1. HSIL (high grade squamous intraepithelial lesion) on Pap smear of cervix (Primary) - URINE SCREEN, POINT OF CARE (ENTER/EDIT) - SURGICAL PATHOLOGY 2. Abnormal uterine bleeding (AUB) - URINE SCREEN, POINT OF CARE (ENTER/EDIT) - SURGICAL PATHOLOGY - CBC; Future - TSH WITH FREE T4 IF INDICATED; Future 3. Cervical mass - URINE SCREEN, POINT OF CARE (ENTER/EDIT) - SURGICAL PATHOLOGY F/U results on any testing done. Reviewed instructions including no sex, tampons, or douching for at least 7 days. Follow up on results. Recommend checking CBC, TSH to r/o other causes for AUB, but suspect due to cervical pathology. VIVEK Mabry documented in this encounter Nursing Notes * Maria Fernanda Arellano CMA - 07/25/2024 8:49 AM EST Patient present today for colposcopy/EMB. No unprotected intercourse in the last 14 days. documented in this encounter Plan of Treatment Pending Results Name Type Priority Associated Diagnoses Date /Time SURGICAL PATHOLOGY Pathology Routine HSIL (high grade squamous intraepithelial lesion) on Pap smear of cervix Abnormal uterine bleeding (AUB) Cervical mass 07/25/2024 9:26 AM EST CBC Lab Routine Abnormal uterine bleeding (AUB) 07/25/2024 9:29 AM EST TSH WITH FREE T4 IF INDICATED Lab Routine Abnormal uterine bleeding (AUB) 07/25/2024 9:29 AM EST Scheduled Orders Name Type Priority Associated Diagnoses Orde r Schedule CBC Lab Routine Abnormal uterine bleeding (AUB) Expected: 07/25/2024 (Approximate), Expires: 07/25/2025 TSH WITH FREE T4 IF INDICATED Lab Routine Abnormal uterine bleeding (AUB) Expected: 07/25/2024 (Approximate), Expires: 07/25/2025 Health Maintenance Due Date Last Done Comments [...] Procedure Name Priority Date/Time Associated Diagnosis Comments URINE SCREEN, POINT OF CARE (ENTER/EDIT) Routine 07/25/2024 HSIL (high grade squamous intraepithelial lesion) on Pap smear of cervix Abnormal uterine bleeding (AUB) Cervical mass documented in this encounter Results * URINE SCREEN, POINT OF CARE (ENTER/EDIT) (07/25/2024) hCG Beta, Urine Negative Negative Procedural Control Valid? Yes Lot Number [id number] Expiration Date 224,266 Urine 07/25/2024 Yvonne Broussard Backer [facility] LAB POINT O F CARE TEST ENTER/EDIT ORDERABLES Final Result documented in this encounter Visit Diagnoses Diagnosis HSIL (high grade squamous intraepithelial lesion) on Pap smear of cervix- Primary Papanicolaou smear of cervix with high grade squamous intraepithelial lesion (HGSIL) Abnormal uterine bleeding (AUB) Cervical mass Other specified noninflammatory disorder of cervix documented in this encounter
--- OUTSIDE RECORDS SUMMARY | 2024-09-19 23:28 | External Medical Summary | Summary of Care ---
Author Name Unknown Organization [facility] Address [address] [place] [address] Phone [phone] Care Team Providers Care Rn Review Name Role Phone Unavailable Primary Care Provider Unavailabl e Reason for Visit * Reason Comments Colposcopy Encounter Details Date Type Department Care Team (Late st Contact Info) Description 07/25/2024 9:00 AM EST Office Visit Gynecology/Obstetri [facility] [address] [facility] [place] [address] Yvonne Tadeo CRNP [address] [place] [address] HSIL (high grade squamous intraepithelial lesion) on [...] recent pap showing: HSIL +HPV. 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 Yes Lot Number [id number] Expiration Date ,456,354 Urine 07/25/2024 Yvonne Broussard Backer [facility] [...]
--- OUTSIDE RECORDS SUMMARY | 2024-09-19 23:28 | External Medical Summary ---
Author Name Unknown Address Unknown Organization [id number]:[facility] [place] [address] [place] [address] Laboratory Report Ordering Provider Test Date Status FELTON ROSADO 07/25/2024 09:29:41 Final Observation Date Value Abnormality Reference (Units ) Status WBC, Total 07/25/2024 09:29:41 18.81 Above high normal 4 .00-10.80 (K/uL) Final RBC 07/25/2024 09:29:41 4.87 3.85-5.15 (M/uL) Final Hemoglobin 07/25/2024 09:29:41 15.2 12.0-15.3 (g/dL) Final HCT 07/25/2024 09:29:41 46.3 Above high normal 36 .0-45.2 (%) Final MCV 07/25/2024 09:29:41 95.1 81.5-97.5 (fL) Final MCH 07/25/2024 09:29:41 31.2 27.0-34.0 (pg) Final MCHC 07/25/2024 09:29:41 32.8 32.0-36.0 (g/dL) Final RDW 07/25/2024 09:29:41 13.8 11.5-15.5 (%) Final Platelets 07/25/2024 09:29:41 324 140-400 (K /uL) Final MPV 07/25/2024 09:29:41 10.4 6.6-11.1 ( fL) Final Performing Location [facility] [place] [address] [place] [id number]
--- OUTSIDE RECORDS SUMMARY | 2024-09-19 23:28 | External Medical Summary | Summary of Care ---
Author Name Unknown Organization [facility] Address [address] [place] [address] Phone [phone] Care Team Providers Care Parts Counterperson Name Role Phone Unavailable Primary Care Provider Unavailabl e Reason for Referral * Precert (Within 10 days (routine)) - Pending Review Specialty Diagnoses / Procedures Referred By Contac t Referred To Contact Radiology Diagnoses Squamous cell carcinoma of cervix (HCC) Procedures PET CT SKULL BASE TO MID-THIGH FDG Hafsa Abarca MD [address] [place] [address] Phone: tel: fax: Referral ID Status Reason Start Date Expiration Date V isits Requested Visits Authorized [id number] Pending Review 08/01/2024 [id number] Encounter Details Date Type Department Care Team (Late st Contact Info) Description 07/31/2024 Orders Only Gynecology/Oncology, [place] [address] [place] [address] Hafsa Abarca MD [address] [place] [address] Squamous cell carcinoma of cervix (HCC)* Allergies [...] as of this encounter Plan of Treatment Scheduled Orders Name Type Priority Associated Diagnoses Orde r Schedule PET CT SKULL BASE TO MID-THIGH FDG Medical Imaging Routine Squamous cell carcinoma of cervix (HCC) Expected: 08/01/2024, Expires: 08/31/2025 Health Maintenance Due Date Last Done Comments [...]
--- OUTSIDE RECORDS SUMMARY | 2024-09-19 23:28 | External Medical Summary ---
Author Name Unknown Address Unknown Organization [id number]:[facility] [place] - [address] [facility] [address] Laboratory Report Ordering Provider Test Date Status FELTON ROSADO 07/25/2024 09:29:41 Final Observation Date Value Abnormality Reference (Units ) Status TSH 07/25/2024 09:29:41 2.22 0.27-4.20 (uIU/mL) Final Performing Location [facility] [place] - [address] [facility] [address]
--- OUTSIDE RECORDS SUMMARY | 2024-09-19 23:28 | External Medical Summary | Summary of Care ---
Author Name Unknown Organization [facility] Address [address] [place] [address] Phone [phone] Care Team Providers Care Ironer Hand Name Role Phone Unavailable Primary Care Provider Unavailabl e Reason for Referral * Evaluate & Treat - Unlimited Visits (Within 10 days (routine)) - Authorized Specialty Diagnoses / Procedures Referred By Sujit alberts Referred To Contact Gynecologic Oncology / Gynecology Oncology Diagnoses Squamous cell carcinoma of cervix (HCC) Yvonne Tadeo CRNP [address] [place] [address] Phone: tel: fax: Referral ID Status Reason Start Date Expiration Date Visits Requested Visits Authorized [id number] Authorized Specialty Services Required 07/31/2024 [id number] Question Answer Referral Priority Within 10 days (routine) Where should this appointment be scheduled? [facility] Reason for Visit * Reason Onset Date Comments Test Results 07/31/2024 Encounter Details Date Type Department Care Team (Late st Contact Info) Description 07/31/2024 Telephone Gynecology/Obstetrics [facility] [address] [place] [address] Yvonne Tadeo CRNP [address] [place] [id number] Test Results Allergies No known active allergiesdocumented [...] PM EST Thank you for the update. Rn Managed Care onc is requesting PEC scan from skull to mid thigh in patient's with cervical cancer diagnosis. Could you see if she would be agreeable to this? If so, one of us can place the order. Thanks Hardeep! Nitza Dodge PA-C * Telephone Encounter - Yvonne Tadeo CRNP - 07/31/2024 12:31 PM EST Spoke w/pt and notified of cervical cancer diagnosis. Recommend livestock farmers/onc referral, she is agreeable.Referral placed. Pt encouraged to reach out to this office if she has questions or concerns prior to her consult. VIVEK Mabry documented in this encounter Plan of Treatment Scheduled Referrals Name Type Priority Associated Diagnoses Orde r Schedule SALES TECHNICIAN HOME THEATER/ONC REFERRAL OP Referral Within 10 da ys [...]
--- OUTSIDE RECORDS SUMMARY | 2024-09-19 23:29 | External Medical Summary ---
Author Name Unknown Address Unknown Organization [id number]:[facility] [place] - [address] [facility] [address] Laboratory Report Ordering Provider Test Date Status CORRINANYDIA 06/08/2024 15:58:24 Final Observation Date Value Abnormality Reference (Units ) Status Bacterial vaginosis [Interpretation] in Vaginal fluid Qualitative 06/08/2024 15:58:24 Negative Negative Final Negative for Bacterial Vagin osis. Correlate results with other clinical findings. Daiana sp DNA [Presence] in Vaginal fluid by Probe 06/08/2024 15:58:24 Negative Negative Final No Daiana species group RNA detected. Correlate results with other clinical findings. Daiana glabrata RNA [Presen ce] in Vaginal fluid by TEA with probe detection 06/08/2024 15:58:24 Negative Negative Final No Daiana glabrata RNA dete cted. Correlate results with other clinical findings. Trichomonas vaginalis DNA [P resence] in Vaginal fluid by Probe 06/08/2024 15:58:24 Negative Negative Final No Trichomonas vaginalis RNA detected. Performing Location [facility] [place] - [address] [facility] [address]
--- OUTSIDE RECORDS SUMMARY | 2024-09-19 23:29 | External Medical Summary | Summary of Care ---
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 Details Date Type Department Care Team (Latest Contact Info) Description 06/08/2024 3:00 PM EST Office Visit Gynecology/Obstetric s [facility] [address] [place] [address] Nitza Dodge PA-C [address] [place] [address] Women's annual routine gynecological examination*; Encounter for screening mammogram for malignant neoplasm of breast; Vaginal discharge; DUB (dysfunctional uterine bleeding); Pelvic pain in female Allergies No known active allergiesdocumented as of this encounter (statuses as of 06/08/2024) Medications predniSONE 20 MG Oral Tablet (DELTASONE)Ind ications:[place] titis 2 tablets daily for 5 days [...] as of this encounter (statuses as of 06/08/2024) Active Problems No known active problems documented as of this encounter (statuses as of 06/08/2024) Resolved Problems Problem Noted Date Diagnosed Date Resolved Date Encounter for supervision of other normal 01/31/2002 04/26/2002 Overview (11/26/2015): ICD-10 update of inactive term documented as of this encounter (statuses as of 06/08/2024) Social History Tobacco Use Types Packs/Day Years [...] documented in this encounter Progress Notes * Nitza Dodge PA-C - 06/08/2024 3:06 PM EST Luanne [...] Stability Do you currently live in a prison or have no steady place to sleep [...] broom Rectal: perianal area normal, anus normal Lead Housekeeper Documentation Patient offered etl architect and accepted. Name of etl architect: Lilliam Slaughter LPN. Assessment/Plan Women's annual routine gynecological examination (Primary) - STEREO EQUIPMENT SALESPERSON PAP SCREEN; Future; Expected date: 06/08/2024 - [...] Instructed to take Rx with meals. Discussed STEREO EQUIPMENT SALESPERSON causes of DUB and pelvic pain. Will follow-up with results of Pap, vaginosis culture,and U/S to guide follow-up. Discussed treatments to include NSAIDs, control, or surgical management. Will reach out with further recommendations. Follow-Up: RTO pending results and sooner PRN with further concerns. Call the office with any problems, questions, concerns. Nitza Dodge PA-C 06/08/2024 documented in this encounter Nursing [...] 06/08/2024 2:56 PM documented in this encounter Plan of Treatment Upcoming Encounters Date Type Department Care Team (Late st Contact Info) Description 06/23/2024 12:30 PM EST Imaging Radiology [address] [place] [address] 06/23/2024 1:30 PM EST Imaging Radiology [address] [place] [address] Pending Results Name Type Priority Associated Diagnoses Date /Time STEREO EQUIPMENT SALESPERSON PAP SCREEN Pathology Routine Women's annual routine gynecological examination 06/08/2024 3:58 PM EST VAGINOSIS PANEL, PCR Lab Routine Vaginal discharge 06/08/2024 3:58 PM EST Scheduled Orders Name Type Priority Associated Diagnoses Orde r Schedule MAMMOGRAM SCREENING EMIR BILATERAL Medical Imaging Routine Encounter for screening mammogram for malignant neoplasm of breast Expected: 06/08/2024 (Approximate), Expires: 07/08/2025 STEREO EQUIPMENT SALESPERSON PAP SCREEN Pathology Routine Women's annual routine gynecological examination Expected: 06/08/2024, Expires: 07/08/2025 US PELVIS TRANS-VAGINAL NON-OB Medical Imaging Routine DUB (dysfunctional uterine bleeding) Pelvic pain in female Ordered: 06/08/2024 Health Maintenance Due Date Last Done Comments [...] 2020 Depression Screening 04/30/2021 04/30/2020 COVID-19 Vaccine ( [...] as of this encounter Visit Diagnoses Diagnosis Women's annual [...]
--- OUTSIDE RECORDS SUMMARY | 2024-09-19 23:29 | External Medical Summary ---
Author Name Unknown Address Unknown Organization K01:LABORATORY [place] [address] Laboratory Report Ordering Provider Test Date Status NYDIA HOUSER 06/08/2024 15:58:00 Final Observation Date Value Abnormality Reference (Units ) Status Human papilloma virus E6+E7 mRNA [Presence] in Cervix by TEA with probe detection 06/08/2024 15:58:00 Positive Abnormal Not Applicable Final One or more high/intermediat e-risk Human Papillomavirus (HPV E6/E7 messenger RNA) detected [...] developed, and its performance characteristics determined by [employer]. It has not been cleared or approved by the U.S. Food and Drug Administration (FDA). The FDA has determined that such clearance or approval is not necessary.
This assay has been performed at [facility], [address] [place] [address], [place]. [address]. Performing Location LABORATORY [address] [address]
--- OUTSIDE RECORDS SUMMARY | 2024-09-19 23:29 | External Medical Summary | Summary of Care ---
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 Details Date Type Department Care Team (Latest Contact Info) Description 06/08/2024 3:00 PM EST Office Visit Gynecology/Obstetric s Rusty Conteh [address] [place] [id number] Nitza Dodge PA-C [address] [place] [id number] Women's annual routine gynecological examination*; Encounter for screening mammogram for malignant neoplasm of breast; Vaginal discharge; DUB (dysfunctional uterine bleeding); Pelvic pain in female Allergies No known active allergiesdocumented as of this encounter (statuses as of 06/08/2024) Medications predniSONE 20 MG Oral Tablet (DELTASONE)Ind ications:[place] titis 2 tablets daily for 5 days [...] Stability Do you currently live in a half-way or have no steady place to sleep [...] broom Rectal: perianal area normal, anus normal Assembler Trim Documentation Patient offered set key driver and accepted. Name of set key driver: Lilliam Slaughter LPN. Assessment/Plan Women's annual routine gynecological examination (Primary) - CORDWAINER PAP SCREEN; Future; Expected date: 06/08/2024 - [...] Instructed to take Rx with meals. Discussed CORDWAINER causes of DUB and pelvic pain. Will [...] Description 06/23/2024 12:30 PM EST Imaging Radiology [address] [place] [address] 06/23/2024 1:30 PM EST Imaging Radiology [address] [place] [address] Scheduled Orders Name Type Priority Associated Diagnoses Orde r Schedule MAMMOGRAM SCREENING EMIR BILATERAL Medical Imaging Routine Encounter for screening mammogram for malignant neoplasm of breast Expected: 06/08/2024 (Approximate), Expires: 07/08/2025 CORDWAINER PAP SCREEN Pathology Routine Women's annual routine gynecological examination Expected: 06/08/2024, Expires: 07/08/2025 VAGINOSIS PANEL, PCR Lab Routine Vaginal discharge Ordered: 06/08/2024 US PELVIS TRANS-VAGINAL NON-OB Medical Imaging Routine [...]
[2024-09-20 06:36] LABS: BUN Creatinine Ratio 13.3 (10-20); Calcium 8.2 mg/dl (8.6-10.3); Potassium 4.4 mmol/L (3.5-5.1)
[2024-09-20 06:38] LABS: Hematocrit (blood only) 29.2 % (37.0-47.0); Hemoglobin 9.8 g/dl (12.0-16.0); Mean Corpuscular Hemoglobin 29.8 pg (25.0-34.0); Mean Corpuscular Hgb Conc 33.6 g/dL (32.0-36.0); Mean Corpuscular Volume 88.8 fL (80.0-100.0); Mean Platelet Volume 11.1 fL (9.4-12.4); Platelet Count 211 K/uL (130-400); RDW Standard Deviation 42.1 fL (36.4-46.3); Red Blood Count 3.29 M/uL (4.20-5.40); White Blood Count 13.73 K/ul (4.8-10.8)
--- NOTE | 2024-09-20 08:10 | Hospitalist Progress Note ---
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 CTAP with findings c/f for endometrial/uterine cancer with mass effect on the L ureter causing moderate L hydronephrosis. Appreciate urology consult. Urology planning for cystoscopy with L ureteral stent placement today. UA with 4+ bacteria, 3+ LE and >50 WBC. Currently on IV Rocephin pending results of urine culture. WBC improving. Continue pain control. (4) Squamous cell carcinoma of cervix: Plan: Undergoing concurrent radiotherapy with weekly cisplatin (on hold). Follows with Dr. Bass of [facility] Heme/Onc and Dr. Oleg Keith of [facility] Radiation Oncology. Pain usually managed at home with oral morphine and oxycodone. Follows with Dr. Kaye Augustine of [facility] Palliative Medicine for cancer- related pain. Palliative care has been titrating up her opioids due to worsening pain. Was on dexamethasone 4mg BID x 4 days recently (prescribed by palliative provider above) - ended on 09/16/24. (5) Hyponatremia: Plan: Na improving but still hyponatremic at 129. Suspect 2/2 poor po intake ISO pain. Serum osmolality 269, urine osmolality 333. Continue IVF with 1L bag of NSS ordered this morning. Continue to monitor. DVT Prophylaxis: SQ Heparin Code Status: FULL CODE PCP: NO PCP - Needs to be established with PCP (assist with coordination of care). Disposition: Admitted in Med/Surg - Anticipate another 2-3 days in the hospital depending on clinical course. Patient seen in collaboration with Dr. Rojo. Please see addendum. I spent a total of 45 minutes coordinating, documenting, and providing care for this patient excluding time spent in the performance of separately billed services or time spent by another provider/QHP. This included personally reviewing all current laboratories and imaging studies, medical reconciliation, outpatient chart review and discussion with specialists. This chart was completed in part utilizing Speech Voice Recognition Software. Grammatical errors, random word insertions, pronoun errors, and incomplete sentences are an occasional consequence of this system due to software limitatio ns, ambient noise, and hardware issues. Any formal questions or concerns about the content, text, or information contained within the body of this dictation should be directly addressed to the provider for clarification. Admission and Anticipated Discharge Date Admission Date: September 19, 2024 Supervising Physician Co-Signing Physician Notes Patient seen and examined independently. Discussed with above provider Patient underwent cystoscopy with left ureteral stent placement today. Plan to continue on IV antibiotics; follow-up on culture results Pain control; IV Dilaudid dose increased to 1 mg as needed Continue on IV normal saline for hyponatremia; BMP in p.m. and in a.m. I have reviewed the advanced practitioner's documentation, and I agree with, and take responsibility for the plan of care I spent a total of 20 minutes coordinating, documenting, and providing care for this patient excluding time spent in the performance of separately billed services. All of the aforementioned completed while collaborating with the assigned advanced practitioner for a full treatment plan Subjective NAEO. Endorses constant left flank pain with minimal relief on current pain me dication regimen. Discussed additional dose of IV Dilaudid which she was agreeable with. Denies any vaginal bleeding this morning. No nausea or vomiting. No chest pain or SOB. Mentions she spoke with a provider from the urology service earlier. Review of Systems Review of Systems: At least ten systems reviewed and negative, except as noted in the subjective section. Physical Exam Physical Exam: General: Thin F, appears quite uncomfortable, laying down in bed, conversing appropriately. A+Ox3. HEENT: Normocephalic, atraumatic. Conjunctivae normal. External ear and nose normal, oropharynx normal. Respiratory: Normal respiratory effort, lungs clear to auscultation bilaterally. No accessory muscle use. Cardiovascular: Tachycardic rate, regular rhythm. Normal peripheral pulses, no BLE edema. Abdomen/GI: Normal bowel sounds, soft, + TTP in LLQ region. No guarding. Extremities/Musculoskeletal: Extremities motor strength intact, moves all extremities. +TTP in L flank region. Results & Data Results & Data Vital Signs (Past 12 Hours) Vital Signs Temp Pulse Resp BP Pulse Ox O2 Del Method 09/19/24 21:22 37.3 C 89 22 151/81 H 93 Room Air 09/19/24 20:20 Room Air Laboratory Results Short CBC 09/19/24 09/20/24 Range/Units 15:56 05:18 WBC 17.31 H 13.73 H (4.8-10.8) K/ul Hgb 11.4 L 9.8 L (12.0-16.0) g/dl Hct 34.2 L 29.2 L (37.0-47.0) % Plt Count 251 211 (130-400) K/uL BMP 09/19/24 09/20/24 15:56 05:18 Sodium 126 L 129 L Potassium 4.4 4.4 Chloride 89 L 95 L Carbon Dioxide 28 27 BUN 15 12 Creatinine 0.95 0.90 Glucose 107 H 102 H Calcium 9.1 8.2 L Liver Function 09/19/24 Range/Units 15:56 Total Bilirubin 0.5 (0.2-1.0) mg/dl AST 13 (13-39) U/L ALT 14 (7-52) U/L Alkaline Phosphatase 81 (34-104) U/L Albumin 3.7 (3.4-5.0) gm/dl Urine 09/19/24 Range/Units 16:45 Urine Color Yellow Urine Appearance Turbid A (Clear) Urine pH 6.5 (4.5-7.5) Ur Specific [place] 1.011 (1.000-1.030) Urine Protein 2+ H (Negative) Urine Glucose (UA) Negative (Negative) (1) Hydronephrosis Hydronephrosis type: unspecified Qualified Code(s): N13.30 - Unspecified hydronephrosis
[2024-09-20] MEDS: SENNA 8.6 MG TAB PO SCH (09:15)
[2024-09-20] MEDS: MoRPHine SULFATE CR 15 MG TABCR PO SCH (09:16)
[2024-09-20] MEDS: cefTRIAXone SODIUM 2,000 MG/50 ML BAG IV SCH (09:16)
[2024-09-20] MEDS: SODIUM CHLORIDE 0.9% 1,000 ML IV SCH (09:16)
[2024-09-20] MEDS ORDERED: NALOXONE HCL 0.4 MG/1 ML VIAL/CARP IV PRN (10:00)
[2024-09-20] MEDS: HYDROmorphone INJ 1 MG/ML SYRINGE IV STA (10:02)
--- NOTE | 2024-09-20 10:05 | Urology Consultation ---
Date of Consultation September 20, 2024 Assessment & Plan (1) Hydronephrosis: (2) Pelvic mass: 44-year-old female with history of cervical cancer undergoing radiation admitted for worsening abdominal pain. CT imaging showed left hydronephrosis secondary to pelvic mass. Patient afebrile, hemodynamically stable Labs reviewedcreatinine 0.9, WBC 13.73, hemoglobin 9.8 Urinalysis suspicious for infection Urine culture pending Recommend continue with broad-spectrum antibiotics and narrow per sensitivity data when available CT imaging reviewed and discussedleft hydronephrosis secondary to mass effect from pelvic mass Discussed options for management of left hydronephrosis with placement of left ureteral stent Discussed possible long-term management with exchanges while undergoing treatment Ureteral stents discussed in detail Discussed possible management with percutaneous nephrostomy tube if unable to place stent or stent failure After discussion, she wishes to proceed with surgical intervention today Proceed with cystoscopy and left ureteral stent placement Risk and benefits of procedure to be reviewed with patient by Dr. 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 In setting of UTI, recommend stent placement. Discussed that it will be unclear how long the stent will need to be maintained. Consent obtained. Patient marked. History of Present Illness Reason for Consultation: Left hydronephrosis Attending Physician: Pedro Luis Rojo MD History of Present Illness This is a 44-year-old female with locally advanced cervical cancer undergoing radiation/chemotherapy who presented to the emergency department on 09/19/2024 for evaluation of worsening abdominal pain. Patient was afebrile and hemodynamically stable in the ED. Workup in the emergency department included CT abdomen and pelvis showed moderate left hydronephrosis with left perinephric and periureteral stranding secondary to pelvic mass. Lab work showed sodium 129, creatinine 0.9, WBC 13.73, hemoglobin 9.8. Urinalysis suspicious for infection with 2+ blood, 3+ LE, >50 WBC, >20 RBC, and 4+ bacteria. ED course: IV fluids, ceftriaxone, hydromorphone and ondansetron. She was admitted to the hospital medicine service. Urology is consulted for left hydronephrosis. Patient seen and examined at bedside this morning. in room. She reports left flank discomfort. Also reports some generalized abdominal discomfort and sensation to have bowel movement. Denies nausea, vomiting, fever or chills. Reports mild dysuria prior to arrival, improved at present. No hematuria. Currently NPO. Allergies Allergy/AdvReac Type Severity Reaction Status Date / Time No Known Allergies Allergy Verified 09/19/24 18:49 Home Medications Medication Instructions Recorded Confirmed Type polyethylene glycol 3350 17 17 g PO DAILY PRN Constipation 08/16/24 09/19/24 History gram/dose oral powder (Miralax) ondansetron HCl 8 mg tablet 8 mg PO Q8H PRN Nausea And Vomiting 09/11/24 09/19/24 History sennosides 8.6 mg capsule (senna) 8.6 mg PO DAILY 09/11/24 09/19/24 History dexamethasone 4 mg tablet 4 mg PO BID 09/19/24 09/19/24 History lidocaine-prilocaine 2.5 %-2.5 % 1 applic topical UD Mediport 09/19/24 09/19/24 History topical cream morphine 15 mg tablet,extended 15 mg PO BID 09/19/24 09/19/24 History release oxycodone 10 mg tablet 10 mg PO Q4H PRN Severe Pain 09/19/24 09/19/24 History (Scale Score 7-10) Patient History Surgical History Status post colposcopy History of knee surgery Removal of Spaulding's cyst - right Family History Mother No problems noted. Father , 42yo Cerebral aneurysm S/p nephrectomy Brother No problems noted. Brother No problems noted. Sister Twin Pts twin sister Son No problems noted. Daughter No problems noted. 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 How many Children do You have: 2 Other Information That Helps Us Care for You: No Feels Safe at Home: Yes Safety Concerns: Feels Safe At This Time Diet: regular caffeine: No during the past year weight has: decreased > 10 lbs Assistive Devices: None Review of Systems Review of Systems: All systems reviewed & are unremarkable except as noted in HPI & below Physical Exam Constitutional: + thin; no acute distress Respiratory: normal respiratory effort; no respiratory distress and no labored breathing Cardiovascular: Extremities: no edema Musculoskeletal: Head/Neck/Chest: normocephalic Skin: no visible rashes Neurologic: moves all extremities and awake Psychiatric: Orientation: alert and oriented x 3 Results & Data Vital Signs (Past 12 Hours) Vital Signs Temp Pulse Resp BP Pulse Ox O2 Del Method 09/20/24 08:24 36.8 C 85 22 127/78 94 Room Air PG Care Time/CCT Total # of Minutes Spent Total Time Spent with Patient: Total time spent is greater than 50% in coordination of care (as documented) at patient's floor/unit and/or counseling patient: Coding Level of Care Code 60509 IN/OBS CONSULT LVL 4,60M Diagnoses Hydronephrosis N13.30 Pelvic mass R19.00
[2024-09-20] MEDS ORDERED: MIDAZOLAM HCL 1 MG/ML 2ML VIAL ONE (10:07)
[2024-09-20] MEDS ORDERED: fentaNYL citrate PF 100 MCG/2 ML VIAL ONE (10:09)
[2024-09-20] MEDS ORDERED: PROPOFOL IV EMULSION 10 MG/ML 20 ML VIAL IV ONE (10:10)
[2024-09-20] MEDS ORDERED: fentaNYL citrate PF 100 MCG/2 ML VIAL IV PRN (10:31)
[2024-09-20] MEDS ORDERED: ONDANSETRON INJ 2 MG/ML 2 ML VIAL IV PRN (10:31)
[2024-09-20] MEDS ORDERED: ePHEDrine sulfate 50 MG/ML AMP IV PRN (10:31)
[2024-09-20] MEDS ORDERED: ATROPINE SULFATE 0.1 MG/ML 10ML SYR IV PRN (10:31)
--- NOTE | 2024-09-20 10:31 | Anesthesiology Consultation ---
Date of Service September 20, 2024 Assessment & Plan (1) Encounter for pre-operative examination: Chart Review Chart Review: Acceptable Risk for Surgery and Patient NOT seen in Pre Admission Testing Consults Requested none History Surgery Operation Date: 09/20/24 07:00 Proposed Procedures p Cystoscopy, Left Ureteral Stent Insertion - Darci Bond MD Height/Weight Height: 5 ft 3 in Weight: 57.425 kg Allergies Allergy/AdvReac Type Severity Reaction Status Date / Time No Known Allergies Allergy Verified 09/19/24 18:49 Medications Home Medications Medication Instructions Recorded Confirmed Last Taken polyethylene glycol 3350 17 17 g PO DAILY PRN Constipation 08/16/24 09/19/24 Unknown gram/dose oral powder (Miralax) ondansetron HCl 8 mg tablet 8 mg PO Q8H PRN Nausea And Vomiting 09/11/24 09/19/24 Unknown sennosides 8.6 mg capsule (senna) 8.6 mg PO DAILY 09/11/24 09/19/24 09/18/24 dexamethasone 4 mg tablet 4 mg PO BID 09/19/24 09/19/24 09/19/24 08:00 lidocaine-prilocaine 2.5 %-2.5 % 1 applic topical UD Mediport 09/19/24 09/19/24 Unknown topical cream morphine 15 mg tablet,extended 15 mg PO BID 09/19/24 09/19/24 09/19/24 release oxycodone 10 mg tablet 10 mg PO Q4H PRN Severe Pain 09/19/24 09/19/24 09/19/24 (Scale Score 7-10) Active Medications Generic Name Dose Route Start Last Admin Trade Name Dakotaq PRN Reason Stop Dose Admin Dexamethasone 4 mg 09/19/24 21:00 09/20/24 09:16 Dexamethasone 4 Mg Tab PO 10/19/24 20:59 4 mg BID KENDRA Administration Hydromorphone HCl 0.5 mg 09/19/24 19:17 09/20/24 04:03 Hydromorphone Inj 0.5 Mg/0.5 Ml Syr IV 10/03/24 19:16 0.5 mg Q3H PRN Administration Pain Sodium Chloride 1,000 mls @ 80 mls/hr 09/20/24 08:30 09/20/24 09:16 Nss IV 09/21/24 08:29 80 mls/hr .[id number] KENDRA Administration Ceftriaxone Sodium 2,000 mg in 50 mls @ 100 mls/hr 09/20/24 08:30 09/20/24 09:59 Rocephin IV 09/27/24 08:29 Infused Q24H KENDRA Infusion Morphine Sulfate 15 mg 09/20/24 09:00 09/20/24 09:16 Morphine Sulfate Cr 15 Mg Tabcr PO 10/04/24 08:59 15 mg BID KENDRA Administration Oxycodone HCl 10 mg 09/19/24 20:18 09/20/24 07:42 Oxycodone Hcl Ir 5 Mg Tab (Immediate Release) PO 10/03/24 20:17 10 mg Q4H PRN Administration Severe Pain (Scale Score 7-10) Sennosides 8.6 mg 09/20/24 09:00 09/20/24 09:15 Senna 8.6 Mg Tab PO 10/20/24 08:59 8.6 mg DAILY KENDRA Administration Past Family History Family History Mother No problems noted. Father , 42yo Cerebral aneurysm S/p nephrectomy Brother No problems noted. Brother No problems noted. Sister Twin Pts twin sister Son No problems noted. Daughter No problems noted. Past Surgical History Surgical History Status post colposcopy History of knee surgery Removal of Spaulding's cyst - right Social History Smoking Status: Current some day smoker Smoking cigarettes per day: 1/2 PPD x 20+ Hx Alcohol Use: No Hx Substance Use: No Physical Exam Vital Signs Last Vital Signs Temp 98.2 F 09/20/24 08:24 Pulse 85 09/20/24 08:24 Resp 22 09/20/24 08:24 BP 127/78 09/20/24 08:24 Pulse Ox 94 09/20/24 08:24 O2 Del Method Room Air 09/20/24 08:24 Testing Laboratory Results 09/20/24 05:18 09/20/24 05:18 Urine Color Yellow 09/19/24 16:45 Urine Appearance Turbid (Clear) A 09/19/24 16:45 Urine pH 6.5 (4.5-7.5) 09/19/24 16:45 Ur Specific [place] 1.011 (1.000-1.030) 09/19/24 16:45 Urine Protein 2+ (Negative) H 09/19/24 16:45 Urine Glucose (UA) Negative (Negative) 09/19/24 16:45 Urine Ketones Negative (Negative) 09/19/24 16:45 Urine Nitrite Negative (Negative) 09/19/24 16:45 Ur Leukocyte Esterase 3+ (Negative) H 09/19/24 16:45 Urine WBC (Auto) >50 /hpf (0-5) H 09/19/24 16:45 Urine RBC (Auto) >20 /hpf (0-2) H 09/19/24 16:45 U Hyaline Cast (Auto) 0-2 /lpf (0-2) 09/19/24 16:45 U Epithel Cells (Auto) 3-5 /hpf (0-2) H 09/19/24 16:45 Urine Bacteria (Auto) 4+ (None Seen) H 09/19/24 16:45 Electrocardiogram Date: 09/19/24 Findings: + NSR @
[2024-09-20 11:19] LABS: Pregnancy Test, Serum Negative (Negative)
[2024-09-20] MEDS: DIATRIZOATE MEGLUMINE 30% 100ML VIAL INSTIL ONE (11:55)
--- NOTE | 2024-09-20 12:09 | Operative Report ---
PG Post Operative Report Pre & Post Diagnosis Operation Date: 09/20/24 07:00 Pre-Op Diagnosis: Hydronephrosis Post-Op Diagnosis: Hydronephrosis I identified the patient and participated in the time-out.: Yes Procedure Operation Date: 09/20/24 07:00 Actual Procedures p Cystoscopy, Left: Retrograde Pyelogram with radiographic interpretation, Ureteral Stent Insertion(Left) - Darci Bond MD Surgeon Darci Bond MD [place] Actor None Estimated Blood Loss 0 Findings See Below 1. Significant appearing tumor invasion into the left bladder wall and floor obscuring the left UO. The right UO was visible. 2. Mild to moderate left hydronephrosis 3. Stent in appropriate position Specimens None Drains 7x24 Left coloplast imajin long indwelling stent Anesthesia Type MAC Indications 44-year-old female with a history of cervical cancer currently undergoing chemotherapy and radiation who presented with left flank pain and a CT scan showed left hydronephrosis with significant stranding around the left proximal ureter and kidney. UA concerning for infection. Description of Procedure After informed consent was obtained, the patient was transported operative suite. MAC anesthesia was induced. The patient was placed in dorsal lithotomy position prepped and draped in a sterile fashion. They received preoperative ceftriaxone for antibiotic prophylaxis. An appropriate surgical timeout was performed. A 22 Scottish rigid scope was inserted per urethra into the bladder. [place] cystoscopy revealed significant tumor invasion in the left floor and wall of the bladder. This was very bullous and friable tissue. The right ureteral orifice was evident however there was no obvious left ureteral orifice present. I turned my attention t to where the left ureteral orifice should anatomically be located and blindly passed a wire. After several minutes I fortunately was jesus enough to advance this into the kidney which was confirmed fluoroscopically. 5 Scottish open-ended catheter was advanced over the wire and the wire was removed. A left retrograde pyelogram was shot which showed mild to moderate left hydronephrosis. A sensor wire was advanced into the kidney and confirmed fluoroscopically. 5 Scottish open-ended catheter was removed. A 7 Scottish by 24 cm left Coloplast imajin long indwelling ureteral stent was deployed with a good proximal coil in the renal pelvis and a good distal coil noted in the bladder. These were confirmed fluoroscopically and under direct visualization, respectively. The bladder was emptied and the scope was removed. This concluded the end of the case. All counts were correct at the end of the case. I was present, scrubbed, and actively participated for the entirety of the procedure. I attest to the content of the Intraoperative Record and any orders documented therein. Any exceptions are noted below.
--- NOTE | 2024-09-20 12:24 | Anesthesiology Progress Note ---
Date of Service September 20, 2024 Anesthesia Post Procedure Vital Signs Vital Signs: Temp Pulse Pulse Pulse Resp BP BP 09/20/24 12:20 83 15 137/74 09/20/24 12:10 79 15 136/75 09/20/24 12:03 97.9 F 88 16 140/88 09/20/24 10:38 98.6 F 84 18 136/81 09/20/24 08:24 98.2 F 85 22 127/78 09/19/24 21:22 99.1 F 89 22 151/81 H 09/19/24 20:20 09/19/24 19:35 91 H 18 155/86 H 09/19/24 18:31 83 18 139/82 09/19/24 18:29 84 09/19/24 13:58 97.7 F 93 H 17 132/67 Pulse Ox O2 Del Method 09/20/24 12:20 96 Room Air 09/20/24 12:10 96 Room Air 09/20/24 12:03 100 Room Air 09/20/24 10:38 96 Room Air 09/20/24 08:24 94 Room Air 09/19/24 21:22 93 Room Air 09/19/24 20:20 Room Air 09/19/24 19:35 95 Room Air 09/19/24 18:31 96 Room Air 09/19/24 18:29 09/19/24 13:58 90 Room Air Pain Intensity Abdomen: Pain Intensity: 7 Left Flank: Pain Intensity: 7 Transfer of Care Handoff Completed per policy Notes Mental Status: alert / awake / arousable and participated in evaluation Patient Amnestic to Procedure: Yes Nausea / Vomiting: adequately controlled Pain: adequately controlled Airway Patency, RR, SpO2: stable & adequate BP & HR: stable & adequate Hydration State: stable & adequate Anesthetic Complications: no major complications apparent and Pt Satisfied with anesthetic care
--- NOTE | 2024-09-20 12:35 | Fluoroscopy Report ---
FL retrograde includes kub CLINICAL HISTORY: STENT PLACEMENT/ADD ON COMPARISON STUDY: None FLUOROSCOPY TIME: 17 seconds FLUOROSCOPY IMAGES: 2 EXPOSURE DOSE: 2.2 mGy FINDINGS: Fluoroscopy was provided for left ureteral stent. IMPRESSION: Intraoperative fluoroscopy. ACT 112: Negative or not required by law. Electronically signed by: Herberth Riggs M.D. 09/20/2024 12:34 PM
[2024-09-20] MEDS: HEPARIN SOD 5,000 UNIT/0.5 ML VIAL SQ SCH (14:06)
[2024-09-20] MEDS ORDERED: HYDROmorphone INJ 0.5 MG/0.5 ML SYR IV PRN (14:12)
[2024-09-20] MEDS ORDERED: cefTRIAXone SODIUM 1,000 MG/50 ML BAG IV SCH (17:30)
[2024-09-20 21:07] LABS: BUN Creatinine Ratio 16.7 (10-20); Calcium 8.7 mg/dl (8.6-10.3); Creatinine Clr Calc Pharmacy 70.7 ml/min; Potassium 4.1 mmol/L (3.5-5.1)
[2024-09-20] MEDS: PHENAZOPYRIDINE HCL 200 MG TAB PO STA (21:31)
[2024-09-21] MEDS: HEPARIN 100 UNIT/ML 5ML FLUSH FLUSH PRN (05:22)
[2024-09-21 07:39] VITALS: RESP 19
[2024-09-21 07:43] LABS: Hematocrit (blood only) 28.2 % (37.0-47.0); Hemoglobin 9.3 g/dl (12.0-16.0); Mean Corpuscular Hemoglobin 29.9 pg (25.0-34.0); Mean Corpuscular Volume 90.7 fL (80.0-100.0); Mean Platelet Volume 10.6 fL (9.4-12.4); Platelet Count 209 K/uL (130-400); RDW Coefficient of Variation 13.2 % (11.5-14.5); RDW Standard Deviation 42.9 fL (36.4-46.3); Red Blood Count 3.11 M/uL (4.20-5.40); White Blood Count 8.97 K/ul (4.8-10.8)
[2024-09-21 08:09] LABS: BUN Creatinine Ratio 17.6 (10-20); Calcium 8.4 mg/dl (8.6-10.3); Creatinine Clr Calc Pharmacy 87.3 ml/min; Magnesium 1.8 mg/dl (1.7-2.4); Potassium 3.9 mmol/L (3.5-5.1)
--- NOTE | 2024-09-21 08:10 | Hospitalist Progress Note ---
Date of Service September 21, 2024 Assessment & Plan Admission and Anticipated Discharge Date Admission Date: September 19, 2024 Results & Data Results & Data Vital Signs (Past 12 Hours) Vital Signs Temp Pulse Resp BP Pulse Ox O2 Del Method 09/21/24 07:38 37.0 C 94 H 19 147/73 H 93 Room Air 09/21/24 03:25 36.8 C 76 12 107/69 94 Room Air 09/20/24 23:42 37.1 C 79 14 122/83 93 Room Air
--- NOTE | 2024-09-21 08:54 | Urology Progress Note ---
Date of Service September 21, 2024 Assessment & Plan (1) Complicated UTI (urinary tract infection): (2) Neoplasm causing mass effect on adjacent structures: (3) Hydronephrosis: Plan 44-year-old female with history of cervical cancer undergoing radiation with CT showing left hydronephrosis secondary to a pelvic mass. POD #1 s/p cystoscopy and left ureteral stent placement Tolerating the ureteral stent with minimal pain. Labs reviewed -creatinine 0.68, WBCs 8.97, hemoglobin 9.3 Urine culture , preliminary showing pinpoint growth. Currently on ceftriaxone. Trend antibiotics per culture results. Patient having currently urgency/frequency and dysuria. May try tamsulosin, oxybutynin or Pyridium as needed for symptomatic management. Continue supportive care and monitoring per primary team. Continue antibiotics as prescribed. No plan for further urologic intervention during this admission. Will arrange outpatient follow-up with our service for possible stent removal- currently in progress. Urology will sign out. Please contact or reconsult for any additional questions or concerns. Admission and Anticipated Discharge Date Admission Date: September 19, 2024 Subjective Patient resting comfortably in bed, no acute distress Denied fevers, chills, nausea, vomiting Is having some urinary urgency/frequency, bladder spasms and dysuria- "feels l dora I have a UTI" No significant flank or abdominal left-sided pain Review of Systems Constitutional: as per Subjective / HPI Genitourinary: as per Subjective / HPI Physical Exam Constitutional: cooperative; no acute distress Respiratory: normal respiratory effort and able to speak in complete sentences Musculoskeletal: Extremities: extremities normal to inspection Psychiatric: Orientation: alert and oriented x 3 Results & Data Vital Signs (Past 12 Hours) Vital Signs Temp Pulse Resp BP Pulse Ox O2 Del Method 09/21/24 07:38 37.0 C 94 H 19 147/73 H 93 Room Air 09/21/24 03:25 36.8 C 76 12 107/69 94 Room Air 09/20/24 23:42 37.1 C 79 14 122/83 93 Room Air PG Care Time/CCT Total # of Minutes Spent Total Time Spent with Patient: Total time spent is greater than 50% in coordination of care (as documented) at patient's floor/unit and/or counseling patient: Coding Level of Care Code 40720 SUB INP/OBS CARE 2/35MIN Diagnoses Complicated UTI (urinary tract infection) N39.0 Neoplasm causing mass effect on adjacent structures D49.9 Hydronephrosis, unspecified hydronephrosis type N13.30 Hydronephrosis type: unspecified (3) Hydronephrosis Hydronephrosis type: unspecified Qualified Code(s): N13.30 - Unspecified hydronephrosis
[2024-09-21] MEDS: TAMSULOSIN HCL 0.4 MG CAP PO SCH (10:54)
[2024-09-21] MEDS: PHENAZOPYRIDINE HCL 100 MG TAB PO PRN (10:54)
[2024-09-21 11:34] VITALS: BP 133/78; PULSE 103; TEMP 98.8; O2SAT 98
--- NOTE | 2024-09-21 13:01 | Discharge Summary ---
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 CTAP with findings c/f for endometrial/uterine cancer with mass effect on the L ureter causing moderate L hydronephrosis. S/p L ureteral stent placement on 09/20/24 UA abnormal - urine culture finalized today with mixed yaneth Discharge on Augmentin to complete course given urologic procedure Continue Flomax until urology follow-up with Dr. Bond, PRN Pyridium for stent- related pain (4) Squamous cell carcinoma of cervix: Undergoing concurrent radiotherapy with weekly cisplatin Follows with Dr. Bass of [facility] Heme/Onc and Dr. Oleg Keith of [facility] Radiation Oncology Follows with Dr. Kaye Augustine of [facility] Palliative Medicine for cancer- related pain. Palliative care has been titrating up her opioids due to worsening pain - continue home morphine and PRN oxycodone Completed course of dexamethasone 4mg BID x 4 ordered by palliative RADIOLOGY DIRECTOR (5) Hyponatremia: Na initially 126 in setting of poor PO intake, cancer Serum osmolality 269, urine osmolality 333 Na improved to 135 at time of discharge, continue to monitor as outpatient Notes For Next Care Provider L hydronephrosis in setting of mass effect, s/p ureteral stent Medication Changes From Visit complete augmentin course, daily flomax and PRN pyridium Admission HPI Per Admitting Provider The patient is a 44-year-old female with a past medical history of cervical CAcurrently undergoing radiation who presents to the ED on 09/19/2024 with complaints of worsening abdominal pain. Patient chronically takes morphine and Oxy for pain control. Reported to her oncologist that her pain has been worsening. She was directed to come to the ER if it did not improve. Patient reports left-sided pain that radiates around her back. She denies any naus ea/vomiting/diarrhea. She denies any chest pain/shortness of breath. Does endorse some constipation but reports she had a bowel movement yesterday. Denies any hematuria. Denies any burning with urination. On arrival to the ED, labs remarkable for WBC 17.3, neutrophils 15.6, NA 126, glucose 107 UA appears positive. The patient was given IV ceftriaxone/IV fluids/Zofran in the ED Abdomen/pelvis CT shows findings concerning for endometrial/uterine cancer with mass effect on the left ureter causing moderate left hydronephrosis After discussion with urology, it was determined to admit the patient for pain control and patient may require a stent versus nephrostomy tube. She will be admitted for further management Kidney function is within normal limits Admission Exam Per Admitting Provider Constitutional: WD/WN, vitals as above + ill appearing; no acute distress Eyes: PERRL, conjunctivae normal, anicteric sclerae ENMT: external ear and nose normal, oropharynx normal Neck: trachea midline, no thyromegaly Respiratory: normal respiratory effort, lungs clear to auscultation Cardiovascular: RRR, no murmur, no edema Gastrointestinal (Abdomen): normal bowel sounds, soft, nontender, no hepatosplenomegaly (Left-sided abdominal tenderness. No guarding) Musculoskeletal: no cyanosis or clubbing, extremities motor strength 5/5 Skin: no rashes, warm and dry Neurologic: PERRL, EOMI, accommodation nl, no face palsy, no dysarthria Lymphatic: no cervical or axillary lymphadenopathy Discharge Exam Gen: WD/WN, NAD, sitting up in bed, A&Ox3, appears chronically ill HEENT: Normocephalic, atraumatic Lung: CTA with scattered rhonchi bilaterally Heart: Regular rate, regular rhythm, no murmurs, rubs, or gallops Abdomen: Soft, mild suprapubic TTP, improved Extremities: no edema Skin: Warm, no rash Updated Medication List Medication Instructions Recorded Confirmed Type polyethylene glycol 3350 17 17 g PO DAILY PRN Constipation 08/16/24 09/19/24 History gram/dose oral powder (Miralax) ondansetron HCl 8 mg tablet 8 mg PO Q8H PRN Nausea And Vomiting 09/11/2408/27 History sennosides 8.6 mg capsule (senna) 8.6 mg PO DAILY 09/11/24 09/19/24 History dexamethasone 4 mg tablet 4 mg PO BID 09/19/24 09/19/24 History lidocaine-prilocaine 2.5 %-2.5 % 1 applic topical UD Mediport 09/19/24 09/19/24 History topical cream morphine 15 mg tablet,extended 15 mg PO BID 09/19/24 09/19/24 History release oxycodone 10 mg tablet 10 mg PO Q4H PRN Severe Pain 09/19/24 09/19/24 History (Scale Score 7-10) amoxicillin 875 mg-potassium 1 tab PO BID #10 tabs 09/21/24 Rx clavulanate 125 mg tablet phenazopyridine 100 mg tablet 100 mg PO TID PRN pain #10 tabs 09/21/24 Rx (Pyridium) tamsulosin 0.4 mg capsule 0.4 mg PO QAM #30 caps 09/21/24 Rx Hospital Stay Data Consultations 09/19/24 18:52 ED Decision to Admit Stat 09/19/24 18:58 Consult Urology Routine Procedures Performed Operation Date: 09/20/24 07:00 Actual Procedures p Cystoscopy, Left: Retrograde Pyelogram, Ureteral Stent Insertion(Left) - Darci Bond MD Diagnostic Imagining Performed 09/19/24 17:04 CT abd pelvis IV con only Stat 09/20/24 FL retrograde includes kub Routine Pending Results Patient Have Any Pending Studies at Discharge: No Discharge Instructions Given to Patient (Per Discharging Provider) MEDICATION CHANGES: Augmentin by mouth twice daily x 5 days given urologic procedure Continue Flomax daily until urology follow up Continue Pyridium up to three times a day as needed for stent-related pain Completed outpatient steroid during admission SUMMARY OF TEST RESULTS: CT abd/pelvis from 09/19 with findings c/f for endometrial/uterine cancer with mass effect on the L ureter causing moderate L hydronephrosis Underwent cystoscopy and left ureteral stent placement on 09/20 PENDING TEST RESULTS: None RECOMMENDATIONS FOR FOLLOW-UP: Follow up with PCP and urology as scheduled above. Complete antibiotic in its entirety. Continue medication regimen as scheduled aside from changes noted above. OTHER INSTRUCTIONS: Seek medical attention if you have: * temperature above 101 * chest pain or trouble breathing * abdominal pain, nausea, vomiting * diarrhea, dark stools or bloody stools * any unanswered questions or concerns Call 911 if symptoms are severe. Please take good care of yourself. Call if you have any questions or problems. You can reach a [facility] hospitalist on duty at [facility] 24 hours a day by calling [phone]. Total Time Total Time Spent Total Time Spent (In Minutes): 40 Supervising Physician Co-Signing Physician Notes Patient seen and examined at bedside. Discussed with above provider. Patient reports improvement in pain significantly; she is voiding without any difficulty Urine culture growing more than 3 types of organism; all high counts mixed probable skin yaenth. Patient discharged on prophylactic Augmentin with instruction to follow-up with PCP and urology. I have reviewed the advanced practitioner's documentation, and I agree with, and take responsibility for the plan of care I spent a total of 20 minutes coordinating, documenting, and providing care for this patient excluding time spent in the performance of separately billed services. All of the aforementioned completed while collaborating with the assigned advanced practitioner for a full treatment plan
== END 2024-09-21 14:35 | disposition home or self-care (01) | DRG 660 ==
LOC: ED 13:43 → SUATTDRO 18:58 → 3E 18:58

== ENCOUNTER 2025-03-06 15:05 | Observation (INO) ==
--- NOTE | 2025-03-06 15:34 | Emergency Department Note ---
Impression & Plan Cancer related pain, Ureteral stent present, Complicated UTI (urinary tract infection), Squamous cell carcinoma of cervix ED Provider Note NAME: JOEY JOHNSON AGE: 44 SEX: F : 1980 ARRIVES VIA: Walk-In INFORMANT: Patient ED PROVIDER(S): Curt Mohan MD CHIEF COMPLAINT: Pelvic pain, nausea and vomiting, cervical cancer. PLAN: Disposition: Admit MEDICAL DECISION MAKING: The patient is a pleasant 44-year-old woman with a past medical history of cervical cancer status post radiation and chemotherapy, history of cancer related ureteral obstruction status post left ureteral stent in August of this year who presents to the emergency department via walk-in for evaluation of ongoing pelvic pain and general burning which she reports has been persistent since receiving radiation therapy. She understands from her gynecology/transition specialist that [facility] that her symptoms may be related to her radiation therapy. She was seen in this emergency department on 02/24 and diagnosed with urinary tract infection and treated with antibiotics though subsequent urine culture grew mixed yaneth only. Patient denies any fevers, chills, cough, congestion, chest pain or shortness of breath. She reports pelvic and genital burning that is constantly present (not just with urination) since her radiation therapy. On evaluation the patient is fatigued appearing but no acute distress, afebrile with stable vital signs. She appears clinically dry. Abdomen is nontender. She has no discrete CVA tenderness. EKG without overt acute ischemia. CXR negative for acute cardiopulmonary process per my personal preliminary review/interpretation. WBC within normal limits without neutrophilia or left shift. H/H similar to prior range values. Platelets within normal limits. Chemistry without metabolic acidosis. Magnesium 1.6 and electrolytes otherwise unremarkable. LFTs unremarkable. Procalcitonin is undetectable. TSH within limits. hCG negative. UA demonstrates WBCs and RBCs but with negative nitrites and no bacteria with epithelial cells present. CT of the abdomen pelvis was performed. Given the patient's persistent symptoms of pain which is suspected to be cancer related as well as stent pain patient does agree with plan for admission for further management. Of note, CT report was subsequently finalized and demonstrates heterogenous appearance of the kidney when compared to prior CT though previously was done without contrast. Additionally, question of periaortic fluid collection is also described where retroperitoneal hemorrhage is within the differential but is compared with prior CT which was also without contrast. Attempt to contact [facility] radiologist to further clarify CT findings in the context of her recent noncontrast CT on 02/[address] with contrast performed in December. Appreciate subsequent addendum copied below which clinically correlates with patient's history of illness in the setting of her cancer. Low suspicion for aortic pathology at this time given similar finding in December and patient's hemodynamic stability and stability of blood work. Out of caution blood cultures obtained and empiric treatment for possible complicated UTI initiated with IV Zosyn. Case was discussed with Heather Manrique, [facility] PAC and Dr. Iyer, [facility] hospitalist, who will evaluate the patient for admission. Further management per admitting team. ADDENDUM A CT abdomen/pelvis with IV contrast dated 01/02/2025 has been received and reviewed. The report is not available. On the 01/02/2025 examination, heterogeneous contrast-enhancement of the left kidney is noted, with multiplepatchy striated nephrogram appearing areas, unchanged, possibly representing multifocal pyelonephritis. Alternatively, multifocal renal infarction is also on the differential diagnosis. Mild uroepithelial contrast enhancement of the left renal pelvis is present on both examinations, favoring infection or inflammation. The left ureteral stent is present on the prior examination with decompressed collecting system, unchanged. The para-aortic collection mentioned on the current examination may represent a necrotic lymph node on the 01/02/2025 examination examination, image 38, series 2,now with necrosis on the current exam. If there is concern for aorticinjury, again, CTA is suggested. Electronically signed by Dasha Membreno 03-06-2025 6:55 PM Triage Nursing notes reviewed and agree them. Prior/external medical records reviewed Vital Signs: reviewed Differential diagnosis: Cancer related pain, ureteral stent pain/renal colic, UTI, appendicitis, diverticulitis, mesenteric ischemia, aortic pathology, infections, inflammatory bowel disease, PUD, biliary pathology, as well as other pathologies. ER treatment provided: See below. Diagnostics interpreted by me: ECG: Normal sinus rhythm, sinus arrhythmia, 83 bpm, no ectopy, no overt ST elevation or depression, QTc 441, QRS 90. Cardiac Monitoring: An order for continuous cardiac monitoring was placed and demonstrated Normal sinus rhythm, sinus arrhythmia, 83 bpm, Laboratory studies: See below Imaging studies: See below Consultation(s): Case was discussed with Heather Manrique, [facility] PAC and Dr. Iyer, [facility] hospitalist, who will evaluate the patient for admission. HPI: Per MDM. ROS: See above HPI for pertinent positives & negatives. A total of 10 systems reviewed and were otherwise negative. VITALS:See Below PHYSICAL EXAMINATION: GENERAL: Awake, alert, fatigued-appearing, in no distress HENT: Normocephalic, atraumatic. Oropharynx with dry mucous membranes and otherwise unremarkable. EYES: Normal conjunctiva. Sclera non-icteric. NECK: Supple. No nuchal rigidity. FROM. No JVD. RESPIRATORY: Clear to auscultation. CARDIAC: Regular rate, normal rhythm. Extremities warm and well perfused. Pulses equal. ABDOMEN: Soft, non-distended. No tenderness to palpation. No rebound or guarding. No masses. MUSCULOSKELETAL: Chest examination reveals no tenderness. The back is symmetrical on inspection without obvious abnormality. There is no CVA tenderness to palpation. No joint edema. LOWER EXTREMITIES: Calves are equal size bilaterally and non-tender. No edema. No discoloration. NEURO: Normal sensorium. No sensory or motor deficits noted. SKIN: No rash or jaundice noted. Curt Mohan MD Past Med/Surg History Problem List (Updated 03/06/25 @ 22:50 by Curt Mohan MD) Cancer related pain (Acute) Complicated UTI (urinary tract infection) (Acute) Squamous cell carcinoma of cervix (Acute 07/25/24) Ureteral stent present (Acute) Medical History Severe protein-calorie malnutrition Tobacco use Neoplasm causing mass effect on adjacent structures Hyponatremia Hydronephrosis Pelvic mass Surgical History Status post cystoscopy with ureteral stent placement Status post colposcopy History of knee surgery Removal of Spaulding's cyst - right Family History Mother No problems noted. Father , 42yo Cerebral aneurysm S/p nephrectomy Brother No problems noted. Brother No problems noted. Sister Twin Pts twin sister Son No problems noted. Daughter No problems noted. 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 How many Children do You have: 2 Feels Safe at Home: Yes Diet: regular caffeine: No during the past year weight has: decreased > 10 lbs Assistive Devices: None Allergies Allergies Allergy/AdvReac Type Severity Reaction Status Date / Time No Known Allergies Allergy Verified 03/06/25 18:25 Home Meds Home Medications Medication Instructions Recorded Confirmed hydromorphone 4 mg tablet 4 mg PO Q4H PRN Pain 10/02/24 03/06/25 estradiol 0.01% (0.1 mg/gram) 1 applic vaginal 3XWK 02/24/25 03/06/25 vaginal cream estradiol 0.5 mg tablet 0.5 mg PO QAM 02/24/25 03/06/25 progesterone micronized 100 mg 100 mg PO QAM 02/24/25 03/06/25 capsule lactobacillus combination no.4 3 3,000 mmu cells PO DAILY 03/06/25 03/06/25 billion cell capsule (Probiotic) magnesium citrate 100 mg capsule 100 mg PO DAILY 03/06/25 03/06/25 morphine 60 mg tablet,extended 60 mg PO BID 03/06/25 03/06/25 release sennosides 8.6 mg tablet (senna) 17.2 mg PO HS 03/06/25 03/06/25 sulfamethoxazole 800 1 tab PO BID 03/06/25 03/06/25 mg-trimethoprim 160 mg tablet Results & Data (ED) Vital Signs Vital Signs - 24 hr 03/06/25 15:07 03/06/25 16:13 03/06/25 16:24 Temperature 37 C Temperature Source Oral Pulse Rate 86 74 Pulse Rate [Left Apical] Pulse Rate [Right Finger] Respiratory Rate 15 Respiratory Effort / Characteristics Non-Labored Spontaneous Respiratory Depth Normal Respiratory Pattern Blood Pressure 114/79 Blood Pressure [Right Arm] Blood Pressure Mean 90 Blood Pressure Mean [Right Arm] Pulse Oximetry 96 Oxygen Delivery Method Room Air Room Air Sepsis Recent Fever Within 48 Hours No Sepsis New/Unexplained Change in Mental Status N/A Sepsis Action Taken by Nursing No Action Required 03/06/25 16:25 03/06/25 16:25 03/06/25 17:27 Temperature Temperature Source Pulse Rate 110 H Pulse Rate [Left Apical] Pulse Rate [Right Finger] 86 82 Respiratory Rate 16 20 18 Respiratory Effort / Characteristics Non-Labored Spontaneous Non-Labored Spontaneous Respiratory Depth Normal Normal Respiratory Pattern Blood Pressure Blood Pressure [Right Arm] 105/71 113/70 Blood Pressure Mean Blood Pressure Mean [Right Arm] 82 84 Pulse Oximetry 96 98 94 Oxygen Delivery Method Room Air Room Air Room Air Sepsis Recent Fever Within 48 Hours Sepsis New/Unexplained Change in Mental Status Sepsis Action Taken by Nursing 03/06/25 17:57 03/06/25 19:10 Temperature Temperature Source Pulse Rate Pulse Rate [Left Apical] 72 Pulse Rate [Right Finger] 78 Respiratory Rate 14 22 Respiratory Effort / Characteristics Non-Labored Spontaneous Non-Labored Spontaneous Respiratory Depth Normal Normal Respiratory Pattern Regular Blood Pressure Blood Pressure [Right Arm] 123/70 114/83 Blood Pressure Mean Blood Pressure Mean [Right Arm] 87 93 Pulse Oximetry 96 94 Oxygen Delivery Method Room Air Room Air Sepsis Recent Fever Within 48 Hours Sepsis New/Unexplained Change in Mental Status Sepsis Action Taken by Nursing Laboratory Data Attestation: I reviewed the patient's lab results. 03/06/25 20:11 03/06/25 20:11 Lab Results 03/06/25 03/06/25 03/06/25 Range/Units 16:11 16:30 20:11 WBC 8.34 (4.8-10.8) K/ul RBC 4.06 L (4.20-5.40) M/uL Hgb 11.8 L 11.1 L (12.0-16.0) g/dl Hct 35.0 L 32.6 L (37.0-47.0) % MCV 86.2 (80.0-100.0) fL MCH 29.1 (25.0-34.0) pg MCHC 33.7 (32.0-36.0) g/dL RDW Std Deviation 41.5 (36.4-46.3) fL RDW Coeff of Fer 13.3 (11.5-14.5) % Plt Count 254 (130-400) K/uL MPV 11.1 (9.4-12.4) fL Immature Gran % (Auto) 0.1 % Neut % (Auto) 75.8 % Lymph % (Auto) 14.7 % Walsh % (Auto) 8.5 % Eos % (Auto) 0.5 % Baso % (Auto) 0.4 % Neut # (Auto) 6.32 (1.40-6.50) K/uL Lymph # (Auto) 1.23 (1.20-3.40) K/uL Walsh # (Auto) 0.71 H (0.11-0.59) K/uL Eos # (Auto) 0.04 (0.00-0.50) K/uL Baso # (Auto) 0.03 (0.00-0.20) K/uL Immature Gran # (Auto) 0.01 (0.01-0.20) K/uL PT 11.1 (9.0-12.0) Seconds INR 1.0 (0.9-1.1) Sodium 131 L 131 L (136-145) mmol/L Potassium 3.9 (3.5-5.1) mmol/L Chloride 99 (98-107) mmol/L Carbon Dioxide 23 (21-32) mmol/L Anion Gap 9 (3-11) BUN 10 (6-23) mg/dl Creatinine 0.81 (0.6-1.2) mg/dl Est Cr Clr Drug Dosing 56.1 ml/min eGFR 91.74 BUN/Creatinine Ratio 12.3 (10-20) Glucose 100 H (70-99(Fasting)) mg/dl Osmolality 275 L (280-300) mOsm/kg Calcium 9.3 (8.6-10.3) mg/dl Magnesium 1.6 L (1.7-2.4) mg/dl Total Bilirubin 0.3 (0.2-1.0) mg/dl Direct Bilirubin 0.1 (0-0.2) mg/dl AST 17 (13-39) U/L ALT 8 (7-52) U/L Alkaline Phosphatase 74 (34-104) U/L Total Protein 6.9 (6.0-8.3) gm/dl Albumin 3.6 (3.4-5.0) gm/dl Globulin 3.3 (2.5-4.0) gm/dl Albumin/Globulin Ratio 1.1 (0.9-2) Procalcitonin < 0.02 (0-0.5) ng/ml TSH 0.327 (0.300-4.500) uIu/ml HCG, Qual Negative (Negative) Urine Color Yellow Urine Appearance Cloudy A (Clear) Urine pH 6.5 (4.5-7.5) Ur Specific [place] 1.025 (1.000-1.030) Urine Protein 2+ H (Negative) Urine Glucose (UA) Negative (Negative) Urine Ketones 2+ H (Negative) Urine Blood Trace H (Negative) Urine Nitrite Negative (Negative) Urine Bilirubin Negative (Negative) Urine Urobilinogen Negative (Negative) Ur Leukocyte Esterase 3+ H (Negative) Urine WBC (Auto) >50 H (0-5) /hpf Urine RBC (Auto) 6-10 H (0-2) /hpf U Hyaline Cast (Auto) 3-5 H (0-2) /lpf U Epithel Cells (Auto) 3-5 H (0-2) /hpf Urine Bacteria (Auto) None Seen (None Seen) Urine Comment Administered Medications Heparin Sodium (Porcine) (Heparin Sod 5,000 Unit/0.5 Ml Vial) 5,000 units SQ Q8 KENDRA Stop: 04/05/25 21:59 Last Admin: 03/06/25 21:34 Dose: 5,000 units Documented By: JEANNE Sodium Chloride (Nss) 1,000 mls @ 75 mls/hr IV .[id number] ONE Stop: 03/07/25 10:23 Last Admin: 03/06/25 21:39 Dose: 75 mls/hr Documented By: JEANNE Morphine Sulfate (Morphine Sulfate Cr 15 Mg Tabcr) 60 mg PO BID [facility] Stop: 03/20/25 20:59 Last Admin: 03/06/25 21:33 Dose: 60 mg Documented By: JEANNE Discontinued Medications Sodium Chloride (Nss) 1,000 mls @ 999 mls/hr IV .[id number] KENDRA Stop: 03/06/25 16:30 Last Infusion: 03/06/25 17:54 Dose: Infused Documented By: Admin: 03/06/25 16:48 Dose: 999 mls/hr Documented By: DONNA Famotidine (Pepcid 20mg Iv Push) 20 mg in 5 mls @ 2.5 mls/min IV NOW STA Stop: 03/06/25 15:25 Last Admin: 03/06/25 16:27 Dose: 2.5 mls/min Documented By: DONNA Acetaminophen (Ofirmev) 1,000 mg in 100 mls @ 400 mls/hr IV NOW STA Stop: 03/06/25 16:30 Last Infusion: 03/06/25 17:29 Dose: Infused Documented By: Admin: 03/06/25 16:32 Dose: 400 mls/hr Documented By: DONNA Piperacillin Sod/Tazobactam Sod (Zosyn) 4.5 gm in 100 mls @ 200 mls/hr IV NOW ONE; Protocol Stop: 03/06/25 19:53 Last Infusion: 03/06/25 21:24 Dose: Infused Documented By: Admin: 03/06/25 20:24 Dose: 200 mls/hr Documented By: NEELA Magnesium Sulfate/Dextrose (Magnesium Sulfate / D5w) 1 gm in 100 mls @ 50 mls/hr IV ONE ONE Stop: 03/06/25 21:51 Last Infusion: 03/06/25 21:25 Dose: Infused Documented By: Admin: 03/06/25 20:16 Dose: 50 mls/hr Documented By: NEELA Ioversol (Optiray 320 100ml) 89 ml IV ONCE ONE Stop: 03/06/25 17:15 Last Admin: 03/06/25 17:14 Dose: 89 ml Documented By: ANUJ Morphine Sulfate (Morphine Sulfate 10 Mg/Ml Carp/Vial) 6 mg IV NOW STA Stop: 03/06/25 16:16 Last Admin: 03/06/25 16:28 Dose: 6 mg Documented By: DONNA Morphine Sulfate (Morphine Sulfate 10 Mg/Ml Carp/Vial) 8 mg IV NOW STA Stop: 03/06/25 18:27 Last Admin: 03/06/25 19:11 Dose: 8 mg Documented By: QUINN Ondansetron HCl (Ondansetron Inj 2 Mg/Ml 2 Ml Vial) 4 mg IV NOW STA Stop: 03/06/25 15:25 Last Admin: 03/06/25 16:27 Dose: 4 mg Documented By: DONNA Imaging Data Radiologist's Impression: Chest X-Ray 03/06/25 15:23 Chest radiograph, one view History: Chest pain Comparison: None Findings: Single AP view of the chest performed. No focal consolidation or pleural effusion. No pneumothorax. Right chest wall port with catheter tip of the lower SVC. The cardiomediastinal silhouette is within normal limits. Normal pulmonary vascularity. No evidence for lymphadenopathy. No visualized bony or soft tissue abnormality. Impression: Normal chest radiograph Electronically signed by Mike Lincoln 03-06-2025 5:40 PM Abdomen/Pelvis CT 03/06/25 16:15 EXAMINATION: Abdomen and pelvis CT with CLINICAL HISTORY: Pelvic pain, history of cervical cancer, status post radiation PRIORS: 02/24/2025, 09/19/2024 TECHNIQUE: Contiguous axial images were obtained through the abdomen and pelvis with the use of intravenous contrast. Sagittal and coronal reformations are supplied. FINDINGS: Lung bases unremarkable. The left ureteral stent is in place, appropriately located with no hydro or nephrosis or hydro ureter. Small amount of free fluid present in the pelvis with mild urinary bladder wall thickening noted. The left kidney has a heterogeneous contrast-enhancement appearance with multiple areas of striated nephrogram. No renal abscess or perinephric stranding. Right kidney enhances normally. The liver, gallbladder, portal vein, spleen, stomach, adrenals, aorta and IVC are morphologically unremarkable. A para-aortic aortic fluid collection is present measuring 45 Hounsfield units and 2.3 cm in anteroposterior dimension by 3.0 cm in transverse dimension by 4.3 cm in craniocaudal dimension on image 31, series 2, with possible peripheral enhancement, at the level of the mid kidneys. This is new when compared to 09/19/2024 and more conspicuous when compared to the noncontrast enhanced exam from 02/24/2025. The aorta itself is normal in morphology, allowing for technique. The iliac arteries bifurcate normally with normal morphology. Large amount of formed stool present in the colon. No pericolonic inflammatory change. No dilated loops of bowel. Appendix is normal. Mild diffuse edema or inflammatory change in the pelvis. In bone windows, no acute or suspicious osseous abnormality. IMPRESSION: 1. Heterogeneous contrast-enhancement of the left kidney with multiple patchy 'striated nephrograms', likely representing multifocal pyelonephritis with circumferential urinary bladder wall thickening, inflammatory change in the pelvis and ureteral stent present. No hydronephrosis or hydroureter. 2. Periaortic fluid collection, more conspicuous, measuring up to 4.3 cm, approximating blood attenuation with possible peripheral wall enhancement. Retroperitoneal hemorrhage and/or aortic injury with leaking aorta is on the differential diagnosis. As such, dedicated CTA of the aorta is suggested. ACT 112: Positive. There are findings on this examination that require communication between the performing entity and the patient following Patient Test Result Information Act ([place] ACT 112) guidelines. Electronically signed by Dasha Membreno 03-06-2025 5:56 PM Chest X-Ray 03/06/25 15:23 Chest radiograph, one view History: Chest pain Comparison: None Findings: Single AP view of the chest performed. No focal consolidation or pleural effusion. No pneumothorax. Right chest wall port with catheter tip of the lower SVC. The cardiomediastinal silhouette is within normal limits. Normal pulmonary vascularity. No evidence for lymphadenopathy. No visualized bony or soft tissue abnormality. Impression: Normal chest radiograph Electronically signed by Mike Lincoln 03-06-2025 5:40 PM Abdomen/Pelvis CT 03/06/25 16:15 EXAMINATION: Abdomen and pelvis CT with CLINICAL HISTORY: Pelvic pain, history of cervical cancer, status post radiation PRIORS: 02/24/2025, 09/19/2024 TECHNIQUE: Contiguous axial images were obtained through the abdomen and pelvis with the use of intravenous contrast. Sagittal and coronal reformations are supplied. FINDINGS: Lung bases unremarkable. The left ureteral stent is in place, appropriately located with no hydro or nephrosis or hydro ureter. Small amount of free fluid present in the pelvis with mild urinary bladder wall thickening noted. The left kidney has a heterogeneous contrast-enhancement appearance with multiple areas of striated nephrogram. No renal abscess or perinephric stranding. Right kidney enhances normally. The liver, gallbladder, portal vein, spleen, stomach, adrenals, aorta and IVC are morphologically unremarkable. A para-aortic aortic fluid collection is present measuring 45 Hounsfield units and 2.3 cm in anteroposterior dimension by 3.0 cm in transverse dimension by 4.3 cm in craniocaudal dimension on image 31, series 2, with possible peripheral enhancement, at the level of the mid kidneys. This is new when compared to 09/19/2024 and more conspicuous when compared to the noncontrast enhanced exam from 02/24/2025. The aorta itself is normal in morphology, allowing for technique. The iliac arteries bifurcate normally with normal morphology. Large amount of formed stool present in the colon. No pericolonic inflammatory change. No dilated loops of bowel. Appendix is normal. Mild diffuse edema or inflammatory change in the pelvis. In bone windows, no acute or suspicious osseous abnormality. IMPRESSION: 1. Heterogeneous contrast-enhancement of the left kidney with multiple patchy 'striated nephrograms', likely representing multifocal pyelonephritis with circumferential urinary bladder wall thickening, inflammatory change in the pelvis and ureteral stent present. No hydronephrosis or hydroureter. 2. Periaortic fluid collection, more conspicuous, measuring up to 4.3 cm, approximating blood attenuation with possible peripheral wall enhancement. Retroperitoneal hemorrhage and/or aortic injury with leaking aorta is on the differential diagnosis. As such, dedicated CTA of the aorta is suggested. ACT 112: Positive. There are findings on this examination that require communication between the performing entity and the patient following Patient Test Result Information Act ([place] ACT 112) guidelines. Electronically signed by Dasha Membreno 03-06-2025 5:[address] abdomen/pelvis with IV contrast dated 01/02/2025 has been received and reviewed. The report is not available. On the 01/02/2025 examination, heterogeneous contrast-enhancement of the left kidney is noted, with multiplepatchy striated nephrogram appearing areas, unchanged, possibly representing multifocal pyelonephritis. Alternatively, multifocal renal infarction is also on the differential diagnosis. Mild uroepithelial contrast enhancement of the left renal pelvis is present on both examinations, favoring infection or inflammation. The left ureteral stent is present on the prior examination with decompressed collecting system, unchanged. The para-aortic collection mentioned on the current examination may represent a necrotic lymph node on the 01/02/2025 examination examination, image 38, series 2,now with necrosis on the current exam. If there is concern for aorticinjury, again, CTA is suggested. Electronically signed by Dasha Membreno 03-06-2025 6:55 PM ADDENDUM END ADDENDUM A CT abdomen/pelvis with IV contrast dated 01/02/2025 has been received and reviewed. The report is not available. On the 01/02/2025 examination, heterogeneous contrast-enhancement of the left kidney is noted, with multiplepatchy striated nephrogram appearing areas, unchanged, possibly representing multifocal pyelonephritis. Alternatively, multifocal renal infarction is also on the differential diagnosis. Mild uroepithelial contrast enhancement of the left renal pelvis is present on both examinations, favoring infection or inflammation. The left ureteral stent is present on the prior examination with decompressed collecting system, unchanged. The para-aortic collection mentioned on the current examination may represent a necrotic lymph node on the 01/02/2025 examination examination, image 38, series 2,now with necrosis on the current exam. If there is concern for aorticinjury, again, CTA is suggested. Electronically signed by Dasha Membreno 03-06-2025 6:55 PM ADDENDUM END EXAMINATION: Abdomen and pelvis CT with CLINICAL HISTORY: Pelvic pain, history of cervical cancer, status post radiation PRIORS: 02/24/2025, 09/19/2024 TECHNIQUE: Contiguous axial images were obtained through the abdomen and pelvis with the use of intravenous contrast. Sagittal and coronal reformations are supplied. FINDINGS: Lung bases unremarkable. The left ureteral stent is in place, appropriately located with no hydro or nephrosis or hydro ureter. Small amount of free fluid present in the pelvis with mild urinary bladder wall thickening noted. The left kidney has a heterogeneous contrast-enhancement appearance with multiple areas of striated nephrogram. No renal abscess or perinephric stranding. Right kidney enhances normally. The liver, gallbladder, portal vein, spleen, stomach, adrenals, aorta and IVC are morphologically unremarkable. A para-aortic aortic fluid collection is present measuring 45 Hounsfield units and 2.3 cm in anteroposterior dimension by 3.0 cm in transverse dimension by 4.3 cm in craniocaudal dimension on image 31, series 2, with possible peripheral enhancement, at the level of the mid kidneys. This is new when compared to 09/19/2024 and more conspicuous when compared to the noncontrast enhanced exam from 02/24/2025. The aorta itself is normal in morphology, allowing for technique. The iliac arteries bifurcate normally with normal morphology. Large amount of formed stool present in the colon. No pericolonic inflammatory change. No dilated loops of bowel. Appendix is normal. Mild diffuse edema or inflammatory change in the pelvis. In bone windows, no acute or suspicious osseous abnormality. IMPRESSION: 1. Heterogeneous contrast-enhancement of the left kidney with multiple patchy 'striated nephrograms', likely representing multifocal pyelonephritis with circumferential urinary bladder wall thickening, inflammatory change in the pelvis and ureteral stent present. No hydronephrosis or hydroureter. 2. Periaortic fluid collection, more conspicuous, measuring up to 4.3 cm, approximating blood attenuation with possible peripheral wall enhancement. Retroperitoneal hemorrhage and/or aortic injury with leaking aorta is on the differential diagnosis. As such, dedicated CTA of the aorta is suggested. ACT 112: Positive. There are findings on this examination that require communication between the performing entity and the patient following Patient Test Result Information Act ([place] ACT 112) guidelines. Electronically signed by Dasha Membreno 03-06-2025 5:56 PM Dictated: 03/06/25 0962 Transcribed: Discharge Plan Visit Data Chief Complaint: Vomiting Stated Complaint: PAIN, NAUSEA, PUKING PAIN ED Provider: Curt Mohan Discharge Problem: Cancer related pain, Ureteral stent present, Complicated UTI (urinary tract infection), Squamous cell carcinoma of cervix Patient Disposition: Admitted As Inpatient Condition: Fair Discharge Instructions Interventions: ED Discharge Assessment Last Done: 03/06/25 21:18
[2025-03-06] MEDS: FAMOTIDINE 20MG IV PUSH 20 MG/5 ML SYR IV STA (16:27)
[2025-03-06] MEDS: ONDANSETRON INJ 2 MG/ML 2 ML VIAL IV STA (16:27)
[2025-03-06] MEDS: MoRPHine SULFATE 10 MG/ML CARP/VIAL IV STA ×2 (16:28→19:11)
[2025-03-06] MEDS: ACETAMINOPHEN 1,000 MG/100 ML VIAL IV STA (16:32)
[2025-03-06 16:39] LABS: Hematocrit (blood only) 35.0 % (37.0-47.0); Hemoglobin 11.8 g/dl (12.0-16.0); Immature Granulocytes # (auto) 0.01 K/uL (0.01-0.20); Immature Granulocytes % (auto) 0.1 %; Mean Corpuscular Hemoglobin 29.1 pg (25.0-34.0); Mean Corpuscular Volume 86.2 fL (80.0-100.0); Platelet Count 254 K/uL (130-400); RDW Standard Deviation 41.5 fL (36.4-46.3); Red Blood Count 4.06 M/uL (4.20-5.40); White Blood Count 8.34 K/ul (4.8-10.8)
[2025-03-06] MEDS: SODIUM CHLORIDE 0.9% 1,000 ML IV SCH (16:48)
[2025-03-06 16:49] LABS: Pregnancy Test, Serum Negative (Negative)
[2025-03-06 16:56] LABS: Alanine Aminotransferase 8.0 U/L (7-52); Albumin Globulin Ratio 1.1 (0.9-2); Alkaline Phosphatase 74.0 U/L (34-104); Anion Gap 9.0 (3-11); Bilirubin,Total 0.3 mg/dl (0.2-1.0); Blood Urea Nitrogen 10.0 mg/dl (6-23); Calcium 9.3 mg/dl (8.6-10.3); Carbon Dioxide 23.0 mmol/L (21-32); Chloride 99.0 mmol/L (98-107); Creatinine Clr Calc Pharmacy 56.1 ml/min; Globulin 3.3 gm/dl (2.5-4.0); Glucose 100.0 mg/dl (70-99(Fasting)); Magnesium 1.6 mg/dl (1.7-2.4); Potassium 3.9 mmol/L (3.5-5.1); Sodium 131.0 mmol/L (136-145); Total Protein 6.9 gm/dl (6.0-8.3)
[2025-03-06 16:59] LABS: Appearance Urine Cloudy (Clear); Bacteria Urine Automated None Seen (None Seen); Glucose Urine UA Negative (Negative); WBC Urine Automated >50 /hpf (0-5)
[2025-03-06 17:07] LABS: INR 1.0 (0.9-1.1); Prothrombin Time 11.1 Seconds (9.0-12.0)
[2025-03-06 17:11] LABS: Thyroid Stimulating Hormone 0.327 uIu/ml (0.300-4.500)
[2025-03-06] MEDS: OPTIRAY 320 100ml IV ONE (17:14)
--- NOTE | 2025-03-06 17:40 | XRay Report ---
Chest radiograph, one view History: Chest pain Comparison: None Findings: Single AP view of the chest performed. No focal consolidation or pleural effusion. No pneumothorax. Right chest wall port with catheter tip of the lower SVC. The cardiomediastinal silhouette is within normal limits. Normal pulmonary vascularity. No evidence for lymphadenopathy. No visualized bony or soft tissue abnormality. Impression: Normal chest radiograph Electronically signed by Mike Lincoln 03-06-2025 5:40 PM
--- NOTE | 2025-03-06 17:57 | CT Scan Report ---
EXAMINATION: Abdomen and pelvis CT with CLINICAL HISTORY: Pelvic pain, history of cervical cancer, status post radiation PRIORS: 02/24/2025, 09/19/2024 TECHNIQUE: Contiguous axial images were obtained through the abdomen and pelvis with the use of intravenous contrast. Sagittal and coronal reformations are supplied. FINDINGS: Lung bases unremarkable. The left ureteral stent is in place, appropriately located with no hydro or nephrosis or hydro ureter. Small amount of free fluid present in the pelvis with mild urinary bladder wall thickening noted. The left kidney has a heterogeneous contrast-enhancement appearance with multiple areas of striated nephrogram. No renal abscess or perinephric stranding. Right kidney enhances normally. The liver, gallbladder, portal vein, spleen, stomach, adrenals, aorta and IVC are morphologically unremarkable. A para-aortic aortic fluid collection is present measuring 45 Hounsfield units and 2.3 cm in anteroposterior dimension by 3.0 cm in transverse dimension by 4.3 cm in craniocaudal dimension on image 31, series 2, with possible peripheral enhancement, at the level of the mid kidneys. This is new when compared to 09/19/2024 and more conspicuous when compared to the noncontrast enhanced exam from 02/24/2025. The aorta itself is normal in morphology, allowing for technique. The iliac arteries bifurcate normally with normal morphology. Large amount of formed stool present in the colon. No pericolonic inflammatory change. No dilated loops of bowel. Appendix is normal. Mild diffuse edema or inflammatory change in the pelvis. In bone windows, no acute or suspicious osseous abnormality. IMPRESSION: 1. Heterogeneous contrast-enhancement of the left kidney with multiple patchy 'striated nephrograms', likely representing multifocal pyelonephritis with circumferential urinary bladder wall thickening, inflammatory change in the pelvis and ureteral stent present. No hydronephrosis or hydroureter. 2. Periaortic fluid collection, more conspicuous, measuring up to 4.3 cm, approximating blood attenuation with possible peripheral wall enhancement. Retroperitoneal hemorrhage and/or aortic injury with leaking aorta is on the differential diagnosis. As such, dedicated CTA of the aorta is suggested. ACT 112: Positive. There are findings on this examination that require communication between the performing entity and the patient following Patient Test Result Information Act ([place] ACT 112) guidelines. Electronically signed by Dasha Membreno 03-06-2025 5:56 PM
[2025-03-06] MEDS ORDERED: ACETAMINOPHEN 325 MG TAB PO PRN (19:48)
[2025-03-06] MEDS ORDERED: PROMETHAZINE 6.25 MG/50.25 ML BAG IV PRN (19:50)
[2025-03-06] MEDS: MAGNESIUM SULFATE / D5W 1 GM/100 ML BAG IV ONE (20:16)
[2025-03-06 20:24] LABS: Hematocrit (blood only) 32.6 % (37.0-47.0); Hemoglobin 11.1 g/dl (12.0-16.0)
[2025-03-06] MEDS: PIPERACILLIN/TAZOBACTAM 4.5 GM/100 ML BAG IV ONE (20:24)
--- NOTE | 2025-03-06 20:33 | History & Physical Report ---
Date of Service March 06, 2025 Assessment & Plan (1) Cancer related pain: (2) Squamous cell carcinoma of cervix: (3) Ureteral stent present: (4) Complicated UTI (urinary tract infection): (5) Hyponatremia: (6) Severe protein-calorie malnutrition: (7) Tobacco use: Plan The patient is a 44-year-old female with a PMH of 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 Please see Dr. Iyer's addendum for assessment and plan. I spent a total of 60 minutes coordinating, documenting, and providing care for this patient excluding time spent in the performance of separately billed services or time spent by another provider/QHP. History of Present Illness Chief Complaint: dysuria, suprapubic pain Primary Care Provider: Faith Gould PA-C The patient is a 44-year-old female with a PMH of Squamous cell carcinoma of cervix s/p radiation, undergoing chemo (Keytruda Q5 weeks, next tx 03/28), s/p ureteral stent placement in Aug 2024 for hydronephrosis 2/2 mass effect, frequ ent UTI, chronic cancer-related pain, severe protein calorie malnutrition, history of tobacco use and other medical problems listed below who presents from home with worsening dysuria and chills. Patient was seen in ED on 02/24 for urinary symptoms and was diagnosed with UTI and discharged home on cefdinir, which she completed on 03/02. Followed up with PCP on 03/02 for ongoing symptoms of pelvic pain and dysuria and was prescribed Bactrim, which she has been taking since. Has chronic cancer-related pain in pelvis and lower back as well as L flank, which is felt to be 2/2 both cancer and ureteral stent. Current pain regimen with [facility] is 60mg MS Contin BID since October (patient wasn't sure if dose was 30 or 60 mg BID but per PDMP review, dose was increased to 60mg in October 2024) and Dilaudid PO 4mg QID PRN for breakthrough pain (which she states she has been utilizing Q3H for the past week or so). Continues to have dysuria as well as increased frequency and urgency. No hematuria. States the worst pain is in her lower back as well as suprapubic pain. Improved right now at rest and following some IV morphine in ED. No fever. Noticed some chills earlier today but they have resolved. Had episode of vomiting yesterday and then again today after trying to take AM pills and eat some breakfast. No CP, SOB, abd pain, diarrhea. Chronic constipation in setting of opioid use with use of daily Miralax and Senna. Had a small bowel movement earlier today. Is due to follow up with urologist Dr. Bond on 03/09 for management of L ureteral stent. Per [facility] review, weight is stable since PCP visit in January. Allergies Allergy/AdvReac Type Severity Reaction Status Date / Time No Known Allergies Allergy Verified 03/06/25 18:25 Home Medications Medication Instructions Recorded Confirmed Type hydromorphone 4 mg tablet 4 mg PO Q4H PRN Pain 10/02/24 03/06/25 History estradiol 0.01% (0.1 mg/gram) 1 applic vaginal 3XWK 02/24/25 03/06/25 History vaginal cream estradiol 0.5 mg tablet 0.5 mg PO QAM 02/24/25 03/06/25 History progesterone micronized 100 mg 100 mg PO QAM 02/24/25 03/06/25 History capsule lactobacillus combination no.4 3 3,000 mmu cells PO DAILY 03/06/25 03/06/25 History billion cell capsule (Probiotic) magnesium citrate 100 mg capsule 100 mg PO DAILY 03/06/25 03/06/25 History morphine 60 mg tablet,extended 60 mg PO BID 03/06/25 03/06/25 History release sennosides 8.6 mg tablet (senna) 17.2 mg PO HS 03/06/25 03/06/25 History sulfamethoxazole 800 1 tab PO BID 03/06/25 03/06/25 History mg-trimethoprim 160 mg tablet Past Med/Surg History Problem List (Updated 03/06/25 @ 20:50 by Heather Manrique PA-C) Cancer related pain Complicated UTI (urinary tract infection) Squamous cell carcinoma of cervix (07/25/24) Ureteral stent present (Acute) Medical History (Updated 03/06/25 @ 20:50 by Heather Manrique PA-C) Severe protein-calorie malnutrition Tobacco use Neoplasm causing mass effect on adjacent structures Hyponatremia Hydronephrosis Pelvic mass Surgical History Status post cystoscopy with ureteral stent placement Status post colposcopy History of knee surgery Removal of Spaulding's cyst - right Family History Mother No problems noted. Father , 42yo Cerebral aneurysm S/p nephrectomy Brother No problems noted. Brother No problems noted. Sister Twin Pts twin sister Son No problems noted. Daughter No problems noted. 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 Physical Exam Physical Exam: General Appearance: WD/WN, vitals as above, NAD, appears chronically ill, cachectic with temporal wasting Head: normocephalic, atraumatic Eyes: normal inspection ENT: external ear and nose normal, oropharynx normal Neck: normal visual inspection Respiratory: normal respiratory effort, lungs clear to auscultation, no wheeze, rales, rhonchi. No accessory muscle use Cardiovascular: regular rate, rhythm, normal peripheral pulses, no BLE edema Abdomen/GI: normal bowel sounds, soft, nontender, no hepatosplenomegaly : + Suprapubic TTP Extremities/Musculoskeletal: + Spinal TTP in lumbar region in bandlike distr ibution across back with extension to L flank, extremities motor strength 5/5 Neurologic: PERRL, EOMI, accommodation nl, no face palsy, no dysarthria, CN's II-XI intact bilaterally and moves all extremities Psychiatric: A+Ox3, euthymic affect Skin: no rashes, normal color, warm/dry Results & Data Results & Data Vital Signs (Past 12 Hours) Vital Signs Temp Pulse Pulse Pulse Resp BP BP 03/06/25 19:10 72 22 114/83 03/06/25 17:57 78 14 123/70 03/06/25 17:27 82 18 113/70 03/06/25 16:25 110 H 20 03/06/25 16:25 86 16 105/71 03/06/25 16:24 74 03/06/25 16:13 03/06/25 15:07 37 C 86 15 114/79 Pulse Ox O2 Del Method 03/06/25 19:10 94 Room Air 03/06/25 17:57 96 Room Air 03/06/25 17:27 94 Room Air 03/06/25 16:25 98 Room Air 03/06/25 16:25 96 Room Air 03/06/25 16:24 03/06/25 16:13 Room Air 03/06/25 15:07 96 Room Air Laboratory Results Short CBC 03/06/25 03/06/25 Range/Units 16:11 20:11 WBC 8.34 (4.8-10.8) K/ul Hgb 11.8 L 11.1 L (12.0-16.0) g/dl Hct 35.0 L 32.6 L (37.0-47.0) % Plt Count 254 (130-400) K/uL BMP 03/06/25 03/06/25 16:11 20:11 Sodium 131 L 131 L Potassium 3.9 Chloride 99 Carbon Dioxide 23 BUN 10 Creatinine 0.81 Glucose 100 H Calcium 9.3 Liver Function 03/06/25 Range/Units 16:11 Total Bilirubin 0.3 (0.2-1.0) mg/dl Direct Bilirubin 0.1 (0-0.2) mg/dl AST 17 (13-39) U/L ALT 8 (7-52) U/L Alkaline Phosphatase 74 (34-104) U/L Albumin 3.6 (3.4-5.0) gm/dl Urine 03/06/25 Range/Units 16:30 Urine Color Yellow Urine Appearance Cloudy A (Clear) Urine pH 6.5 (4.5-7.5) Ur Specific [place] 1.025 (1.000-1.030) Urine Protein 2+ H (Negative) Urine Glucose (UA) Negative (Negative) Diagnostic Findings Chest X-Ray 03/06/25 15:23 Chest radiograph, one view History: Chest pain Comparison: None Findings: Single AP view of the chest performed. No focal consolidation or pleural effusion. No pneumothorax. Right chest wall port with catheter tip of the lower SVC. The cardiomediastinal silhouette is within normal limits. Normal pulmonary vascularity. No evidence for lymphadenopathy. No visualized bony or soft tissue abnormality. Impression: Normal chest radiograph Electronically signed by Mike Lincoln 03-06-2025 5:40 PM Abdomen/Pelvis CT 03/06/25 16:15 EXAMINATION: Abdomen and pelvis CT with CLINICAL HISTORY: Pelvic pain, history of cervical cancer, status post radiation PRIORS: 02/24/2025, 09/19/2024 TECHNIQUE: Contiguous axial images were obtained through the abdomen and pelvis with the use of intravenous contrast. Sagittal and coronal reformations are supplied. FINDINGS: Lung bases unremarkable. The left ureteral stent is in place, appropriately located with no hydro or nephrosis or hydro ureter. Small amount of free fluid present in the pelvis with mild urinary bladder wall thickening noted. The left kidney has a heterogeneous contrast-enhancement appearance with multiple areas of striated nephrogram. No renal abscess or perinephric stranding. Right kidney enhances normally. The liver, gallbladder, portal vein, spleen, stomach, adrenals, aorta and IVC are morphologically unremarkable. A para-aortic aortic fluid collection is present measuring 45 Hounsfield units and 2.3 cm in anteroposterior dimension by 3.0 cm in transverse dimension by 4.3 cm in craniocaudal dimension on image 31, series 2, with possible peripheral enhancement, at the level of the mid kidneys. This is new when compared to 09/19/2024 and more conspicuous when compared to the noncontrast enhanced exam from 02/24/2025. The aorta itself is normal in morphology, allowing for technique. The iliac arteries bifurcate normally with normal morphology. Large amount of formed stool present in the colon. No pericolonic inflammatory change. No dilated loops of bowel. Appendix is normal. Mild diffuse edema or inflammatory change in the pelvis. In bone windows, no acute or suspicious osseous abnormality. IMPRESSION: 1. Heterogeneous contrast-enhancement of the left kidney with multiple patchy 'striated nephrograms', likely representing multifocal pyelonephritis with circumferential urinary bladder wall thickening, inflammatory change in the pelvis and ureteral stent present. No hydronephrosis or hydroureter. 2. Periaortic fluid collection, more conspicuous, measuring up to 4.3 cm, approximating blood attenuation with possible peripheral wall enhancement. Retroperitoneal hemorrhage and/or aortic injury with leaking aorta is on the differential diagnosis. As such, dedicated CTA of the aorta is suggested. ACT 112: Positive. There are findings on this examination that require communication between the performing entity and the patient following Patient Test Result Information Act ([place] ACT 112) guidelines. Electronically signed by Dasha Membreno 03-06-2025 5:56 PM Code Status & VTE Plan VTE Prophylaxis Plan VTE Prophylaxis will be ordered: Yes Supervising Physician Co-Signing Physician Notes IM ATTENDING : Patient seen and examined. History obtained from patient, family, and records. Concur with salient points upon review of preceding documentation by Ms. Heather Manrique PA-C. I take responsibility for plan of care below. FINAL ASSESSMENT AND PLAN as follows : Complicated UTI History recurrent infections History ureteral stent placement for hydronephrosis, hx cervical cancer status post chemoradiation ongoing immunotherapy Failed outpatient treatment No sepsis for now Hyponatremia secondary to illness Chronic pain on narcotics Chronic anemia, hemoglobin seems to be at baseline on review of prior blood work Malnutrition Re: Low BMI Ongoing tobacco abuse Admit to [facility] Urine CS, Zosygopal Urology consult re: recurrent UTIs, history of stent placement (Patient known to Dr. Bond. Patient has a scheduled outpatient follow-up appointment this week.) Nutrition consult re: low BMI Nicotine patch as needed DVT prophylaxis with Heparin subcu Full code I spent a total of 30 minutes coordinating, documenting, and providing care for this patientexcludingtime spent by another provider/QHP. Text document was generated using [employer] voice recognition software. It may contain grammatical or spelling errors. Kindly contact undersigned for clarification of any documentation item in question.
[2025-03-06] MEDS ORDERED: POLYETHYLENE (MIRALAX) 17 GM PACK PO PRN (21:19)
--- NOTE | 2025-03-06 21:28 | Urology Consultation ---
Date of Consultation March 06, 2025 Assessment & Plan (1) Complicated UTI (urinary tract infection): Patient has been admitted on hospital service. From a urologic perspective we recommend the following: Provide analgesics Provide antiemetics Hydrate the patient with IV fluids Antibiotics in the form of Zosyn have been initiated. Appropriate cultures have been sent and antibiotics be tailored based on culture results Patient does have an appointment with Dr. Bond to discuss further management of her left ureteral stent in 3 days. Would recommend making the patient n.p.o. after midnight and she can be evaluated by urology attending the morning of 03/07/2025 to see if patient requires ureteral stent exchange in the presence of recurrent urinary tract infection At the time of my interview with patient she was nontoxic-appearingthat she was normotensive without tachycardia or fever and did not exhibit leukocytosis or acute kidney injury. She also does not have hydronephrosis. Additional recommendations will be forthcoming based on her clinical course as unfolds History of Present Illness Reason for Consultation: Urinary tract infection with left ureteral stent in place Attending Physician: Lorena Lowe MD History of Present Illness This is a 44-year-old female who is known to [facility] urology. This patient has an underlying history of invasive cervical cancer. As result of his cancer the patient developed left hydronephrosis. In August 2024 she was taken to the operating room by Dr. Bond of [facility] for history of urology and he was able to place a left ureteral stent. During this time he was noted that tumor had significantly invaded the left side of his bladder. The patient notes that Dr. Bond placed a type of stent that can stay in place for up to 1 year. She does note that she had an appointment with Dr. Bond this coming March 09 to discuss further management of her stent. She presented to the emergency department today secondary to nausea and vomiting along with dysuria and occasional chills. Patient says that she is also having urinary frequency and bilateral flank pain. She does report some lower abdominal pressure and denies any hematuria. She notes that she has not had any fevers at home. Since arrival to the hospital today she has had labs and imaging which I independently reviewed. CBC revealed white blood cell count platelet count were normal. Hemoglobin and hematocrit 11.1 and 32.6. Coagulation studies were normal. Chemistry profile showed sodium was 131 with a normal potassium. BUN and creatinine are both within the normal range. The test is negative. A CT T scan of the abdomen pelvis showed the patient had some patchy striated nephrograms of the left kidney potentially felt to represent pyelonephritis. A left ureteral stent was noted to be present. There was no hydronephrosis present. Patient also underwent a chest x-ray that showed no evidence of pneumonia.A urinalysis was negative for nitrites but did have 3+ leukocyte Estrace and pyuria with greater than 50 white blood cells per high- power field. There is no bacteria noted on this study. At the time of my interview she was resting comfortably in bed and she was in no distress. Allergies Allergy/AdvReac Type Severity Reaction Status Date / Time No Known Allergies Allergy Verified 03/06/25 18:25 Home Medications Medication Instructions Recorded Confirmed Type hydromorphone 4 mg tablet 4 mg PO Q4H PRN Pain 10/02/24 03/06/25 History estradiol 0.01% (0.1 mg/gram) 1 applic vaginal 3XWK 02/24/25 03/06/25 History vaginal cream estradiol 0.5 mg tablet 0.5 mg PO QAM 02/24/25 03/06/25 History progesterone micronized 100 mg 100 mg PO QAM 02/24/25 03/06/25 History capsule lactobacillus combination no.4 3 3,000 mmu cells PO DAILY 03/06/25 03/06/25 History billion cell capsule (Probiotic) magnesium citrate 100 mg capsule 100 mg PO DAILY 03/06/25 03/06/25 History morphine 60 mg tablet,extended 60 mg PO BID 03/06/25 03/06/25 History release sennosides 8.6 mg tablet (senna) 17.2 mg PO HS 03/06/25 03/06/25 History sulfamethoxazole 800 1 tab PO BID 03/06/25 03/06/25 History mg-trimethoprim 160 mg tablet Patient History Medical History Severe protein-calorie malnutrition Tobacco use Neoplasm causing mass effect on adjacent structures Hyponatremia Hydronephrosis Pelvic mass Surgical History Status post cystoscopy with ureteral stent placement Status post colposcopy History of knee surgery Removal of Spaulding's cyst - right Family History Mother No problems noted. Father , 42yo Cerebral aneurysm S/p nephrectomy Brother No problems noted. Brother No problems noted. Sister Twin Pts twin sister Son No problems noted. Daughter No problems noted. 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 How many Children do You have: 2 Feels Safe at Home: Yes Diet: regular caffeine: No during the past year weight has: decreased > 10 lbs Assistive Devices: None Review of Systems Review of Systems: All systems reviewed & are unremarkable except as noted in HPI & below Physical Exam Constitutional: + thin; no acute distress Eyes: no conjunctival abnormality ENMT: Ears: no hearing impairment and no external ear abnormality Mouth: no oropharynx abnormality Neck: trachea midline Respiratory: normal respiratory effort; no respiratory distress and no labored breathing Cardiovascular: Rate/Rhythm: regular rate and regular rhythm Gastrointestinal (Abdomen): Soft without distention. There is no rebound tenderness, guarding, rigidity, or signs of peritonitis. There is no pain with palpation Musculoskeletal: No calf tenderness Skin: no rashes Neurologic: moves all extremities Psychiatric: A+Ox3, euthymic affect Genitourinary: No CVA tenderness with percussion bilaterally Results & Data Vital Signs (Past 12 Hours) Vital Signs Temp Pulse Pulse Pulse Resp BP BP 03/06/25 21:21 62 62 17 97/66 L 03/06/25 19:10 72 22 114/83 03/06/25 17:57 78 14 123/70 03/06/25 17:27 82 18 113/70 03/06/25 16:25 110 H 20 03/06/25 16:25 86 16 105/71 03/06/25 16:24 74 03/06/25 16:13 03/06/25 15:07 37 C 86 15 114/79 Pulse Ox O2 Del Method 03/06/25 21:21 96 Room Air 03/06/25 19:10 94 Room Air 03/06/25 17:57 96 Room Air 03/06/25 17:27 94 Room Air 03/06/25 16:25 98 Room Air 03/06/25 16:25 96 Room Air 03/06/25 16:24 03/06/25 16:13 Room Air 03/06/25 15:07 96 Room Air PG Care Time/CCT Total # of Minutes Spent Total Time Spent with Patient: Total time spent is greater than 50% in coordination of care (as documented) at patient's floor/unit and/or counseling patient: Coding Level of Care Code 60235 IN/OBS CONSULT LVL 5,80M Diagnoses Complicated UTI (urinary tract infection) N39.0
[2025-03-06] MEDS: MoRPHine SULFATE CR 15 MG TABCR PO SCH (21:33)
[2025-03-06] MEDS: HEPARIN SOD 5,000 UNIT/0.5 ML VIAL SQ SCH (21:34)
[2025-03-06] MEDS: SODIUM CHLORIDE 0.9% 1,000 ML IV ONE (21:39)
[2025-03-07] MEDS: PIPERACILLIN/TAZOBACTAM 4.5 GM/100 ML BAG IV SCH (03:13)
[2025-03-07] MEDS: KETOROLAC TROMETHAMINE 15 MG/ML VIAL IV PRN (04:23)
[2025-03-07 04:50] LABS: Hematocrit (blood only) 33.3 % (37.0-47.0); Hemoglobin 10.9 g/dl (12.0-16.0); Immature Granulocytes # (auto) 0.01 K/uL (0.01-0.20); Immature Granulocytes % (auto) 0.1 %; Mean Corpuscular Hemoglobin 28.8 pg (25.0-34.0); Mean Corpuscular Volume 87.9 fL (80.0-100.0); Platelet Count 229 K/uL (130-400); RDW Standard Deviation 43.4 fL (36.4-46.3); Red Blood Count 3.79 M/uL (4.20-5.40); White Blood Count 6.67 K/ul (4.8-10.8)
[2025-03-07 05:07] LABS: Anion Gap 4.0 (3-11); Blood Urea Nitrogen 7.0 mg/dl (6-23); Calcium 8.7 mg/dl (8.6-10.3); Carbon Dioxide 23.0 mmol/L (21-32); Chloride 109.0 mmol/L (98-107); Creatinine Clr Calc Pharmacy 52.2 ml/min; Glucose 84.0 mg/dl (70-99(Fasting)); Magnesium 2.0 mg/dl (1.7-2.4); Potassium 3.9 mmol/L (3.5-5.1); Sodium 136.0 mmol/L (136-145)
[2025-03-07] MEDS: ADVANCED PROBIOTIC 625 MG CAPSULE PO SCH (09:04)
[2025-03-07] MEDS: DOCUSATE SODIUM/SENNA 50/8.6MG TAB PO SCH (09:04)
--- NOTE | 2025-03-07 11:14 | Urology Progress Note ---
Date of Service March 07, 2025 Assessment & Plan (1) Complicated UTI (urinary tract infection): (2) Ureteral stent present: Plan: Follow-up of complicated UTI, left ureteral stent Patient afebrile with stable vitals Labs reviewedcreatinine 0.87, WBC 6.67, hemoglobin 10.9 Urine culture pending Blood cultures pending Left ureteral stent is in appropriate position on CT No acute intervention at this time, patient can resume diet Recommend continue with broad-spectrum antibiotics and narrow per sensitivity data when available Recommend addition of Flomax, Pyridium as needed, and oxybutynin for stent management Plan to follow-up outpatient as scheduled on 03/09 to discuss/set up next exchange Continue supportive care medical management per hospital medicine service GI will sign off, please contact our service with any additional questions or concerns Admission and Anticipated Discharge Date Admission Date: March 06, 2025 Subjective Patient seen and examined in the emergency department Subjectively feeling better since arrival Reports left flank discomfort Voiding spontaneously, notes urinary frequency No fever or chills No nausea or vomiting at present Review of Systems Constitutional: as per Subjective / HPI Genitourinary: as per Subjective / HPI Physical Exam Constitutional: + thin; no acute distress Respiratory: normal respiratory effort; no respiratory distress and no labored breathing Gastrointestinal (Abdomen): Inspection/Auscultation: abdomen normal to inspection Musculoskeletal: Head/Neck/Chest: normocephalic Neurologic: moves all extremities and awake Psychiatric: Orientation: alert and oriented x 3 Results & Data Vital Signs (Past 12 Hours) Vital Signs Temp Pulse Pulse Resp BP BP Pulse Ox 03/07/25 09:12 36.9 C 68 20 102/48 L 95 03/07/25 07:20 62 03/07/25 03:54 58 L 20 119/65 98 03/07/25 01:30 70 20 110/71 97 03/07/25 01:00 69 18 107/70 97 03/07/25 00:03 75 23 99/67 L 03/06/25 23:33 62 23 109/71 O2 Del Method 03/07/25 09:12 Room Air 03/07/25 07:20 03/07/25 03:54 Room Air 03/07/25 01:30 03/07/25 01:00 03/07/25 00:03 03/06/25 23:33 PG Care Time/CCT Total # of Minutes Spent Total Time Spent with Patient: Total time spent is greater than 50% in coordination of care (as documented) at patient's floor/unit and/or counseling patient: Coding Level of Care Code 77868 SUB INP/OBS CARE 08/19MIN Diagnoses Complicated UTI (urinary tract infection) N39.0 Ureteral stent present Z96.0
[2025-03-07] MEDS ORDERED: PHENAZOPYRIDINE HCL 100 MG TAB PO PRN (11:39)
--- NOTE | 2025-03-07 13:01 | Electrocardiogram Report ---
Test Reason : Blood Pressure : */* mmHG Vent. Rate : 83 BPM Atrial Rate : 83 BPM P-R Int : 116 ms QRS Dur : 90 ms QT Int : 376 ms P-R-T Axes : 77 93 68 degrees QTcB Int : 441 ms Normal sinus rhythm with sinus arrhythmia Rightward axis Borderline ECG When compared with ECG of 19-Sep-2024 15:55, No significant change was found Confirmed by Lukasz Wise ([id number]) on 03/07/2025 1:00:54 PM Referred By: REFERRED SELF Confirmed By: Lukasz Wise
--- NOTE | 2025-03-07 15:19 | Hospitalist Progress Note ---
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 Complicated UTI History recurrent infections History ureteral stent placement for hydronephrosis, hx cervical cancer status post chemoradiation ongoing immunotherapy Failed outpatient treatment No sepsis for now Has been on intravenous Zosyn for complicated UTI Urine culture is growing less than 1000 colonies per mL preliminary and blood cultures are pending Will continue with intravenous Zosyn for now Appreciate urology input and recommendation Cervical cancer Status post chemoradiation and with ongoing immunotherapy CT Abdomen and Pelvis: 1. Heterogeneous contrast-enhancement of the left kidney with multiple patchy 'striated nephrograms', likely representing multifocal pyelonephritis with circumferential urinary bladder wall thickening, inflammatory change in the pelvis and ureteral stent present. No hydronephrosis or hydroureter. 2. Periaortic fluid collection, more conspicuous, measuring up to 4.3 cm, approximating blood attenuation with possible peripheral wall enhancement. Retroperitoneal hemorrhage and/or aortic injury with leaking aorta is on the differential diagnosis. As such, dedicated CTA of the aorta is suggested. With Addendum: On the 01/02/2025 examination, heterogeneous contrast-enhancement of the left kidney is noted, with multiplepatchy striated nephrogram appearing areas, unchanged, possibly representing multifocal pyelonephritis. Alternatively, multifocal renal infarction is also on the differential diagnosis. Mild uroepithelial contrast enhancement of the left renal pelvis is present on both examinations, favoring infection or inflammation. The left ureteral stent is present on the prior examination with decompressed collecting system, unchanged. The para-aortic collection mentioned on the current examination may represent a necrotic lymph node on the 01/02/2025 examination examination, image 38, series 2,now with necrosis on the current exam. If there is concern for aorticinjury, again, CTA is suggested. Hyponatremia secondary to illness- corrected for now at 136 Chronic pain on narcotics Chronic anemia, hemoglobin seems to be at baseline on review of prior blood work Malnutrition Re: Low BMI Ongoing tobacco abuse Nicotine patch as needed DVT prophylaxis with Heparin subcu Full code Admission and Anticipated Discharge Date Admission Date: March 06, 2025 Subjective 03/07/2025 The patient was seen and examined in medical floor in presence of the She was admitted with abdominal pain and noted to have complicated UTI/pyelonephritis with ureteral stent in situ Has been feeling little better since admission Denies any fever and/or chills does not have any nausea or vomiting and the pain is reasonably controlled Review of Systems Review of Systems: All systems reviewed and are unremarkable except as noted below Physical Exam Physical Exam: Lying in bed with minimal distress due to abdominal discomfort Constitutional: + ill appearing and average body habitus Eyes: PERRL, conjunctivae normal, anicteric sclerae ENMT: external ear and nose normal, oropharynx normal Neck: trachea midline, no thyromegaly Respiratory: no respiratory distress Auscultation: lungs clear to auscultation bilaterally Cardiovascular: Rate/Rhythm: regular rate, regular rhythm and + bradycardic Heart Sounds: normal S1 and normal S2; no murmur Extremities: no edema Gastrointestinal (Abdomen): Inspection/Auscultation: normal bowel sounds; abdomen not distended Percussion/Palpation: + abdomen tender ( tender in the left loin and renal angle) and abdomen soft Musculoskeletal: no acute arthritis involving any of the joint Neurologic: normal touch/pain/proprioception and moves all extremities; no focal motor deficits Lymphatic: no cervical or axillary lymphadenopathy Results & Data Results & Data Vital Signs (Past 12 Hours) Vital Signs Temp Pulse Pulse Resp BP BP Pulse Ox 03/07/25 13:44 36.8 C 55 L 16 104/59 L 100 03/07/25 12:12 66 19 03/07/25 11:39 67 17 03/07/25 11:24 88 21 03/07/25 10:30 68 15 03/07/25 10:00 67 16 03/07/25 09:39 67 19 03/07/25 09:12 36.9 C 68 20 102/48 L 95 03/07/25 09:03 102/48 L 03/07/25 09:03 102/48 L 03/07/25 08:57 74 18 03/07/25 08:33 61 18 03/07/25 08:27 56 L 18 03/07/25 07:36 68 22 03/07/25 07:20 62 03/07/25 07:06 65 19 03/07/25 06:36 64 23 03/07/25 06:03 68 17 03/07/25 06:00 92/63 L 03/07/25 05:24 68 17 03/07/25 05:00 60 16 03/07/25 05:00 98/56 L 03/07/25 04:30 65 18 03/07/25 04:15 66 15 96 03/07/25 04:00 94/67 L 03/07/25 03:54 55 L 14 03/07/25 03:54 58 L 20 119/65 98 03/07/25 03:36 64 18 93 O2 Del Method 03/07/25 13:44 Room Air 03/07/25 12:12 03/07/25 11:39 03/07/25 11:24 03/07/25 10:30 03/07/25 10:00 03/07/25 09:39 03/07/25 09:12 Room Air 03/07/25 09:03 03/07/25 09:03 03/07/25 08:57 03/07/25 08:33 03/07/25 08:27 03/07/25 07:36 03/07/25 07:20 03/07/25 07:06 03/07/25 06:36 03/07/25 06:03 03/07/25 06:00 03/07/25 05:24 03/07/25 05:00 03/07/25 05:00 03/07/25 04:30 03/07/25 04:15 03/07/25 04:00 03/07/25 03:54 03/07/25 03:54 Room Air 03/07/25 03:36 Laboratory Results Short CBC 03/06/25 03/06/25 03/07/25 Range/Units 16:11 20:11 04:12 WBC 8.34 6.67 (4.8-10.8) K/ul Hgb 11.8 L 11.1 L 10.9 L (12.0-16.0) g/dl Hct 35.0 L 32.6 L 33.3 L (37.0-47.0) % Plt Count 254 229 (130-400) K/uL BMP 03/06/25 03/06/25 03/07/25 16:11 20:11 04:12 Sodium 131 L 131 L 136 Potassium 3.9 3.9 Chloride 99 109 H Carbon Dioxide 23 23 BUN 10 7 Creatinine 0.81 0.87 Glucose 100 H 84 Calcium 9.3 8.7 Liver Function 03/06/25 Range/Units 16:11 Total Bilirubin 0.3 (0.2-1.0) mg/dl Direct Bilirubin 0.1 (0-0.2) mg/dl AST 17 (13-39) U/L ALT 8 (7-52) U/L Alkaline Phosphatase 74 (34-104) U/L Albumin 3.6 (3.4-5.0) gm/dl Urine 03/06/25 Range/Units 16:30 Urine Color Yellow Urine Appearance Cloudy A (Clear) Urine pH 6.5 (4.5-7.5) Ur Specific [place] 1.025 (1.000-1.030) Urine Protein 2+ H (Negative) Urine Glucose (UA) Negative (Negative) Medications Administered Current Inpatient Medications Acetaminophen (Acetaminophen 325 Mg Tab) 650 mg PO QID PRN PRN Reason: pain/fever Stop: 04/05/25 19:47 Heparin Sodium (Porcine) (Heparin Sod 5,000 Unit/0.5 Ml Vial) 5,000 units SQ Q8 KENDRA Stop: 04/05/25 21:59 Last Admin: 03/07/25 14:52 Dose: Not Given Hydromorphone HCl (Hydromorphone Hcl 2 Mg Tab) 4 mg PO Q4H PRN PRN Reason: Pain Stop: 03/20/25 19:52 Last Admin: 03/07/25 00:48 Dose: 4 mg Promethazine HCl (Phenergan) 6.25 mg in 50.25 mls @ 201 mls/hr IV Q6H PRN PRN Reason: Nausea And Vomiting Stop: 04/05/25 19:49 Piperacillin Sod/Tazobactam Sod (Zosyn) 4.5 gm in 100 mls @ 25 mls/hr IV Q8H KENDRA; Protocol Stop: 03/17/25 01:59 Last Admin: 03/07/25 10:57 Dose: 25 mls/hr Ketorolac Tromethamine (Ketorolac Tromethamine 15 Mg/Ml Vial) 10 mg IV Q6H PRN PRN Reason: Pain Stop: 03/11/25 21:03 Last Admin: 03/07/25 13:02 Dose: 10 mg Lactobacillus Acidophilus (Advanced Probiotic 625 Mg Capsule) 1,250 mg PO DAILY KENDRA Stop: 04/06/25 08:59 Last Admin: 03/07/25 09:04 Dose: 1,250 mg Morphine Sulfate (Morphine Sulfate Cr 15 Mg Tabcr) 60 mg PO BID [facility] Stop: 03/20/25 20:59 Last Admin: 03/07/25 09:42 Dose: 60 mg Oxybutynin Chloride (Oxybutynin Chloride 5 Mg Tab) 5 mg PO BID [facility] Stop: 04/06/25 11:44 Last Admin: 03/07/25 12:57 Dose: 5 mg Phenazopyridine HCl (Phenazopyridine Hcl 100 Mg Tab) 100 mg PO TID PRN PRN Reason: Dysuria Stop: 04/06/25 11:38 Polyethylene Glycol (Polyethylene (Miralax) 17 Gm Pack) 17 gm PO DAILY PRN PRN Reason: Constipation Stop: 04/05/25 21:18 Senna/Docusate Sodium (Docusate Sodium/Senna 50/8.6mg Tab) 1 tab PO QAM [facility] Stop: 04/06/25 08:59 Last Admin: 03/07/25 09:04 Dose: 1 tab Tamsulosin HCl (Tamsulosin Hcl 0.4 Mg Cap) 0.4 mg PO HS [facility] Stop: 04/06/25 20:59
[2025-03-07] MEDS: TAMSULOSIN HCL 0.4 MG CAP PO SCH (20:37)
[2025-03-08 07:35] VITALS: RESP 16
[2025-03-08 11:13] LABS: Hematocrit (blood only) 30.7 % (37.0-47.0); Hemoglobin 10.3 g/dl (12.0-16.0); Immature Granulocytes # (auto) 0.02 K/uL (0.01-0.20); Immature Granulocytes % (auto) 0.3 %; Mean Corpuscular Hemoglobin 29.7 pg (25.0-34.0); Mean Corpuscular Volume 88.5 fL (80.0-100.0); Platelet Count 196 K/uL (130-400); RDW Standard Deviation 43.8 fL (36.4-46.3); Red Blood Count 3.47 M/uL (4.20-5.40); White Blood Count 6.72 K/ul (4.8-10.8)
[2025-03-08 11:24] LABS: Alanine Aminotransferase 6.0 U/L (7-52); Albumin Globulin Ratio 1.4 (0.9-2); Alkaline Phosphatase 58.0 U/L (34-104); Anion Gap 5.0 (3-11); Bilirubin,Total 0.3 mg/dl (0.2-1.0); Blood Urea Nitrogen 10.0 mg/dl (6-23); Calcium 8.7 mg/dl (8.6-10.3); Carbon Dioxide 27.0 mmol/L (21-32); Chloride 105.0 mmol/L (98-107); Creatinine Clr Calc Pharmacy 48.9 ml/min; Globulin 2.3 gm/dl (2.5-4.0); Glucose 100.0 mg/dl (70-99(Fasting)); Magnesium 1.8 mg/dl (1.7-2.4); Potassium 4.3 mmol/L (3.5-5.1); Sodium 137.0 mmol/L (136-145); Total Protein 5.6 gm/dl (6.0-8.3)
--- NOTE | 2025-03-08 14:24 | Hospitalist Progress Note ---
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 Complicated UTI History recurrent infections History ureteral stent placement for hydronephrosis, hx cervical cancer status post chemoradiation ongoing immunotherapy Failed outpatient treatment No sepsis for now Has been on intravenous Zosyn for complicated UTI Urine culture is growing less than 1000 colonies per mL preliminary and blood cultures are pending Will continue with intravenous Zosyn for now Appreciate urology input and recommendation Urine culture is growing 3 different types of organismsgiven ureteric stent placement will continue antibiotic for a total of 5 days Remains stable with improvement of her symptoms Likely discharge tomorrow Cervical cancer Status post chemoradiation and with ongoing immunotherapy CT Abdomen and Pelvis: 1. Heterogeneous contrast-enhancement of the left kidney with multiple patchy 'striated nephrograms', likely representing multifocal pyelonephritis with circumferential urinary bladder wall thickening, inflammatory change in the pelvis and ureteral stent present. No hydronephrosis or hydroureter. 2. Periaortic fluid collection, more conspicuous, measuring up to 4.3 cm, approximating blood attenuation with possible peripheral wall enhancement. Retroperitoneal hemorrhage and/or aortic injury with leaking aorta is on the differential diagnosis. As such, dedicated CTA of the aorta is suggested. With Addendum: On the 01/02/2025 examination, heterogeneous contrast-enhancement of the left kidney is noted, with multiplepatchy striated nephrogram appearing areas, unchanged, possibly representing multifocal pyelonephritis. Alternatively, multifocal renal infarction is also on the differential diagnosis. Mild uroepithelial contrast enhancement of the left renal pelvis is present on both examinations, favoring infection or inflammation. The left ureteral stent is present on the prior examination with decompressed collecting system, unchanged. The para-aortic collection mentioned on the current examination may represent a necrotic lymph node on the 01/02/2025 examination examination, image 38, series 2,now with necrosis on the current exam. If there is concern for aorticinjury, again, CTA is suggested. Hyponatremia secondary to illness- corrected for now at 136 Chronic pain on narcotics Chronic anemia, hemoglobin seems to be at baseline on review of prior blood work Malnutrition Re: Low BMI Ongoing tobacco abuse Nicotine patch as needed DVT prophylaxis with Heparin subcu Full code Admission and Anticipated Discharge Date Admission Date: March 06, 2025 Subjective 03/07/2025 The patient was seen and examined in medical floor in presence of the She was admitted with abdominal pain and noted to have complicated UTI/pyelonephritis with ureteral stent in situ Has been feeling little better since admission Denies any fever and/or chills does not have any nausea or vomiting and the pain is reasonably controlled neck 03/08/2025 The patient was seen and examined in medical floor in presence of the family members She still complains today of pain in the left groin and left renal angle Nausea but no vomiting and denies any problem with urine No fever no chills Review of Systems Review of Systems: All systems reviewed and are unremarkable except as noted below Physical Exam Physical Exam: Lying in bed with minimal distress due to abdominal discomfort Constitutional: + ill appearing and average body habitus Eyes: PERRL, conjunctivae normal, anicteric sclerae ENMT: external ear and nose normal, oropharynx normal Neck: trachea midline, no thyromegaly Respiratory: no respiratory distress Auscultation: lungs clear to auscultation bilaterally Cardiovascular: Rate/Rhythm: regular rate, regular rhythm and + bradycardic Heart Sounds: normal S1 and normal S2; no murmur Extremities: no edema Gastrointestinal (Abdomen): Inspection/Auscultation: normal bowel sounds; abdomen not distended Percussion/Palpation: + abdomen tender ( tender in the left loin and renal angle) and abdomen soft Neurologic: normal touch/pain/proprioception and moves all extremities; no focal motor deficits Lymphatic: no cervical or axillary lymphadenopathy Results & Data Results & Data Vital Signs (Past 12 Hours) Vital Signs Temp Pulse Resp BP Pulse Ox O2 Del Method 03/08/25 07:34 36.7 C 53 L 16 102/60 98 Room Air Laboratory Results Short CBC 03/08/25 Range/Units 10:07 WBC 6.72 (4.8-10.8) K/ul Hgb 10.3 L (12.0-16.0) g/dl Hct 30.7 L (37.0-47.0) % Plt Count 196 (130-400) K/uL BMP 03/08/25 10:07 Sodium 137 Potassium 4.3 Chloride 105 Carbon Dioxide 27 BUN 10 Creatinine 0.93 Glucose 100 H Calcium 8.7 Liver Function 03/08/25 Range/Units 10:07 Total Bilirubin 0.3 (0.2-1.0) mg/dl AST 10 L (13-39) U/L ALT 6 L (7-52) U/L Alkaline Phosphatase 58 (34-104) U/L Albumin 3.3 L (3.4-5.0) gm/dl Medications Administered Current Inpatient Medications Acetaminophen (Acetaminophen 325 Mg Tab) 650 mg PO QID PRN PRN Reason: pain/fever Stop: 04/05/25 19:47 Heparin Sodium (Porcine) (Heparin Sod 5,000 Unit/0.5 Ml Vial) 5,000 units SQ Q8 KENDRA Stop: 04/05/25 21:59 Last Admin: 03/08/25 06:09 Dose: 5,000 units Hydromorphone HCl (Hydromorphone Hcl 2 Mg Tab) 4 mg PO Q4H PRN PRN Reason: Pain Stop: 03/20/25 19:52 Last Admin: 03/08/25 04:48 Dose: 4 mg Promethazine HCl (Phenergan) 6.25 mg in 50.25 mls @ 201 mls/hr IV Q6H PRN PRN Reason: Nausea And Vomiting Stop: 04/05/25 19:49 Piperacillin Sod/Tazobactam Sod (Zosyn) 4.5 gm in 100 mls @ 25 mls/hr IV Q8H KENDRA; Protocol Stop: 03/17/25 01:59 Last Infusion: 03/08/25 14:07 Dose: Infused Ketorolac Tromethamine (Ketorolac Tromethamine 15 Mg/Ml Vial) 10 mg IV Q6H PRN PRN Reason: Pain Stop: 03/11/25 21:03 Last Admin: 03/08/25 08:34 Dose: 10 mg Lactobacillus Acidophilus (Advanced Probiotic 625 Mg Capsule) 1,250 mg PO DAILY KENDRA Stop: 04/06/25 08:59 Last Admin: 03/08/25 09:59 Dose: 1,250 mg Morphine Sulfate (Morphine Sulfate Cr 15 Mg Tabcr) 60 mg PO BID KENDRA Stop: 03/20/25 20:59 Last Admin: 03/08/25 08:33 Dose: 60 mg Oxybutynin Chloride (Oxybutynin Chloride 5 Mg Tab) 5 mg PO BID KENDRA Stop: 04/06/25 11:44 Last Admin: 03/08/25 08:33 Dose: 5 mg Phenazopyridine HCl (Phenazopyridine Hcl 100 Mg Tab) 100 mg PO TID PRN PRN Reason: Dysuria Stop: 04/06/25 11:38 Polyethylene Glycol (Polyethylene (Miralax) 17 Gm Pack) 17 gm PO DAILY PRN PRN Reason: Constipation Stop: 04/05/25 21:18 Senna/Docusate Sodium (Docusate Sodium/Senna 50/8.6mg Tab) 1 tab PO QAM KENDRA Stop: 04/06/25 08:59 Last Admin: 03/08/25 08:33 Dose: 1 tab Tamsulosin HCl (Tamsulosin Hcl 0.4 Mg Cap) 0.4 mg PO HS [facility] Stop: 04/06/25 20:59 Last Admin: 03/07/25 20:37 Dose: 0.4 mg
[2025-03-09 07:13] VITALS: BP 92/53; PULSE 57; TEMP 98.1; O2SAT 98
[2025-03-09 10:35] LABS: Hematocrit (blood only) 31.4 % (37.0-47.0); Hemoglobin 10.5 g/dl (12.0-16.0); Immature Granulocytes # (auto) 0.02 K/uL (0.01-0.20); Immature Granulocytes % (auto) 0.2 %; Mean Corpuscular Hemoglobin 29.6 pg (25.0-34.0); Mean Corpuscular Volume 88.5 fL (80.0-100.0); Platelet Count 212 K/uL (130-400); RDW Standard Deviation 43.5 fL (36.4-46.3); Red Blood Count 3.55 M/uL (4.20-5.40); White Blood Count 8.29 K/ul (4.8-10.8)
[2025-03-09 10:48] LABS: Anion Gap 3.0 (3-11); Calcium 8.5 mg/dl (8.6-10.3); Carbon Dioxide 26.0 mmol/L (21-32); Chloride 108.0 mmol/L (98-107); Potassium 4.1 mmol/L (3.5-5.1); Sodium 137.0 mmol/L (136-145)
[2025-03-09 10:53] LABS: Blood Urea Nitrogen 9.0 mg/dl (6-23); Creatinine Clr Calc Pharmacy 47.3 ml/min; Glucose 122.0 mg/dl (70-99(Fasting))
--- NOTE | 2025-03-09 13:06 | Hospitalist Progress Note ---
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 Complicated UTI History recurrent infections History ureteral stent placement for hydronephrosis, hx cervical cancer status post chemoradiation ongoing immunotherapy Failed outpatient treatment No sepsis for now Has been on intravenous Zosyn for complicated UTI Urine culture is growing less than 1000 colonies per mL preliminary and blood cultures are pending Will continue with intravenous Zosyn for now Appreciate urology input and recommendation Urine culture is growing 3 different types of organismsgiven ureteric stent placement will continue antibiotic for a total of 5 days Remains stable with improvement of her symptoms Likely discharge tomorrow Remains stable with minimal pain involving the left jawline and left renal angle No fever and/or chills and no dysuria She will be discharged home this afternoon Cervical cancer--- she was strongly advised to make an appointment with her oncologist sooner than later Status post chemoradiation and with ongoing immunotherapy CT Abdomen and Pelvis: 1. Heterogeneous contrast-enhancement of the left kidney with multiple patchy 'striated nephrograms', likely representing multifocal pyelonephritis with circumferential urinary bladder wall thickening, inflammatory change in the pelvis and ureteral stent present. No hydronephrosis or hydroureter. 2. Periaortic fluid collection, more conspicuous, measuring up to 4.3 cm, approximating blood attenuation with possible peripheral wall enhancement. Retroperitoneal hemorrhage and/or aortic injury with leaking aorta is on the differential diagnosis. As such, dedicated CTA of the aorta is suggested. With Addendum: On the 01/02/2025 examination, heterogeneous contrast-enhancement of the left kidney is noted, with multiplepatchy striated nephrogram appearing areas, unchanged, possibly representing multifocal pyelonephritis. Alternatively, multifocal renal infarction is also on the differential diagnosis. Mild uroepithelial contrast enhancement of the left renal pelvis is present on both examinations, favoring infection or inflammation. The left ureteral stent is present on the prior examination with decompressed collecting system, unchanged. The para-aortic collection mentioned on the current examination may represent a necrotic lymph node on the 01/02/2025 examination examination, image 38, series 2,now with necrosis on the current exam. If there is concern for aorticinjury, again, CTA is suggested. Hyponatremia secondary to illness- corrected for now at 136 Chronic pain on narcotics Chronic anemia, hemoglobin seems to be at baseline on review of prior blood work Malnutrition Re: Low BMI Ongoing tobacco abuse Nicotine patch as needed DVT prophylaxis with Heparin subcu Full code Admission and Anticipated Discharge Date Admission Date: March 06, 2025 Subjective 03/07/2025 The patient was seen and examined in medical floor in presence of the She was admitted with abdominal pain and noted to have complicated UTI/pyelonephritis with ureteral stent in situ Has been feeling little better since admission Denies any fever and/or chills does not have any nausea or vomiting and the pain is reasonably controlled neck 03/08/2025 The patient was seen and examined in medical floor in presence of the family members She still complains today of pain in the left groin and left renal angle Nausea but no vomiting and denies any problem with urine No fever no chills 03/09/2025 The patient was seen and examined in medical floor She has been stable with minimal pain involving the left flank and left renal angle No fever no chills Will be discharged home this afternoon Review of Systems Review of Systems: All systems reviewed and are unremarkable except as noted below Physical Exam Physical Exam: Lying in bed with minimal distress due to abdominal discomfort Constitutional: + ill appearing and average body habitus Eyes: PERRL, conjunctivae normal, anicteric sclerae ENMT: external ear and nose normal, oropharynx normal Neck: trachea midline, no thyromegaly Respiratory: no respiratory distress Auscultation: lungs clear to auscultation bilaterally Cardiovascular: Rate/Rhythm: regular rate, regular rhythm and + bradycardic Heart Sounds: normal S1 and normal S2; no murmur Extremities: no edema Gastrointestinal (Abdomen): Inspection/Auscultation: normal bowel sounds; abdomen not distended Percussion/Palpation: + abdomen tender ( tender in the left loin and renal angle) and abdomen soft Musculoskeletal: No acute arthritis involving any of the joint Neurologic: normal touch/pain/proprioception and moves all extremities; no focal motor deficits Lymphatic: no cervical or axillary lymphadenopathy Results & Data Results & Data Vital Signs (Past 12 Hours) Vital Signs Temp Pulse Resp BP Pulse Ox O2 Del Method 03/09/25 07:09 36.7 C 57 L 16 92/53 L 98 Room Air Laboratory Results Short CBC 03/09/25 Range/Units 10:16 WBC 8.29 (4.8-10.8) K/ul Hgb 10.5 L (12.0-16.0) g/dl Hct 31.4 L (37.0-47.0) % Plt Count 212 (130-400) K/uL BMP 03/09/25 10:16 Sodium 137 Potassium 4.1 Chloride 108 H Carbon Dioxide 26 BUN 9 Creatinine 0.96 Glucose 122 H Calcium 8.5 L Medications Administered Current Inpatient Medications Acetaminophen (Acetaminophen 325 Mg Tab) 650 mg PO QID PRN PRN Reason: pain/fever Stop: 04/05/25 19:47 Cephalexin HCl (Cephalexin 500 Mg Cap) 500 mg PO TID KENDRA; Protocol Stop: 03/19/25 13:59 Heparin Sodium (Porcine) (Heparin Sod 5,000 Unit/0.5 Ml Vial) 5,000 units SQ Q8 KENDRA Stop: 04/05/25 21:59 Last Admin: 03/09/25 06:13 Dose: Not Given Hydromorphone HCl (Hydromorphone Hcl 2 Mg Tab) 4 mg PO Q4H PRN PRN Reason: Pain Stop: 03/20/25 19:52 Last Admin: 03/08/25 16:15 Dose: 4 mg Promethazine HCl (Phenergan) 6.25 mg in 50.25 mls @ 201 mls/hr IV Q6H PRN PRN Reason: Nausea And Vomiting Stop: 04/05/25 19:49 Ketorolac Tromethamine (Ketorolac Tromethamine 15 Mg/Ml Vial) 10 mg IV Q6H PRN PRN Reason: Pain Stop: 03/11/25 21:03 Last Admin: 03/09/25 09:53 Dose: 10 mg Lactobacillus Acidophilus (Advanced Probiotic 625 Mg Capsule) 1,250 mg PO DAILY KENDRA Stop: 04/06/25 08:59 Last Admin: 03/09/25 08:21 Dose: 1,250 mg Morphine Sulfate (Morphine Sulfate Cr 15 Mg Tabcr) 60 mg PO BID KENDRA Stop: 03/20/25 20:59 Last Admin: 03/09/25 08:27 Dose: 60 mg Oxybutynin Chloride (Oxybutynin Chloride 5 Mg Tab) 5 mg PO BID KENDRA Stop: 04/06/25 11:44 Last Admin: 03/09/25 08:21 Dose: 5 mg Phenazopyridine HCl (Phenazopyridine Hcl 100 Mg Tab) 100 mg PO TID PRN PRN Reason: Dysuria Stop: 04/06/25 11:38 Polyethylene Glycol (Polyethylene (Miralax) 17 Gm Pack) 17 gm PO DAILY PRN PRN Reason: Constipation Stop: 04/05/25 21:18 Senna/Docusate Sodium (Docusate Sodium/Senna 50/8.6mg Tab) 1 tab PO QAM KENDRA Stop: 04/06/25 08:59 Last Admin: 03/09/25 08:27 Dose: Not Given Tamsulosin HCl (Tamsulosin Hcl 0.4 Mg Cap) 0.4 mg PO HS KENDRA Stop: 04/06/25 20:59 Last Admin: 03/08/25 20:51 Dose: 0.4 mg
[2025-03-09] MEDS ORDERED: HEPARIN 100 UNIT/ML 5ML FLUSH ONE (13:28)
--- NOTE | 2025-03-10 07:51 | Discharge Summary ---
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 Patient was seen in ED on 02/24 for urinary symptoms and was diagnosed with UTI and discharged home on cefdinir, which she completed on 03/02. Followed up with PCP on 03/02 for ongoing symptoms of pelvic pain and dysuria and was prescribed Bactrim, which she has been taking since. Has chronic cancer-related pain in pelvis and lower back as well as L flank, which is felt to be 2/2 both cancer and ureteral stent. Current pain regimen with [facility] is 60mg MS Contin BID since October (patient wasn't sure if dose was 30 or 60 mg BID but per PDMP review, dose was increased to 60mg in October 2024) and Dilaudid PO 4mg QID PRN for breakthrough pain (which she states she has been utilizing Q3H for the past week or so). Continues to have dysuria as well as increased frequency and urgency. No hematuria. States the worst pain is in her lower back as well as suprapubic pain. Improved right now at rest and following some IV morphine in ED. No fever. Noticed some chills earlier today but they have resolved. Had episode of vomiting yesterday and then again today after trying to take AM pills and eat some breakfast. No CP, SOB, abd pain, diarrhea. Chronic constipation in setting of opioid use with use of daily Miralax and Senna. Had a small bowel movement earlier today. Is due to follow up with urologist Dr. Bond on 03/09 for management of L ureteral stent. Per [facility] review, weight is stable since PCP visit in January. Admission Exam Per Admitting Provider Physical Exam: General Appearance: WD/WN, vitals as above, NAD, appears chronically ill, cachectic with temporal wasting Head: normocephalic, atraumatic Eyes: normal inspection ENT: external ear and nose normal, oropharynx normal Neck: normal visual inspection Respiratory: normal respiratory effort, lungs clear to auscultation, no wheeze, rales, rhonchi. No accessory muscle use Cardiovascular: regular rate, rhythm, normal peripheral pulses, no BLE edema Abdomen/GI: normal bowel sounds, soft, nontender, no hepatosplenomegaly : + Suprapubic TTP Extremities/Musculoskeletal: + Spinal TTP in lumbar region in bandlike distribution across back with extension to L flank, extremities motor strength 5/5 Neurologic: PERRL, EOMI, accommodation nl, no face palsy, no dysarthria, CN's II-XI intact bilaterally and moves all extremities Psychiatric: A+Ox3, euthymic affect Skin: no rashes, normal color, warm/dry Principal Diagnosis Complicated UTI, status post ureteral stent placement, squamous cell cancer of the cervix, cancer related pain Discharge Exam Lying in bed with minimal distress due to abdominal discomfort Constitutional + ill appearing and average body habitus Eyes PERRL, conjunctivae normal, anicteric sclerae ENMT external ear and nose normal, oropharynx normal Neck trachea midline, no thyromegaly Respiratory no respiratory distress Auscultation: lungs clear to auscultation bilaterally Cardiovascular Rate/Rhythm: regular rate, regular rhythm and + bradycardic Heart Sounds: normal S1 and normal S2; no murmur Extremities: no edema Gastrointestinal (Abdomen) Inspection/Auscultation: normal bowel sounds; abdomen not distended Percussion/Palpation: + abdomen tender ( tender in the left loin and renal angle) and abdomen soft Neurologic normal touch/pain/proprioception and moves all extremities; no focal motor deficits Lymphatic no cervical or axillary lymphadenopathy Discharge Data Allergies Allergy/AdvReac Type Severity Reaction Status Date / Time No Known Allergies Allergy Verified 03/06/25 18:25 Consultations 03/06/25 19:25 ED Decision to Admit Stat 03/06/25 21:07 Consult Urology Routine Ordered Studies 03/06/25 16:15 CT abd pelvis IV con only Stat Hospital Course (1) Cancer related pain: (2) Squamous cell carcinoma of cervix: (3) Ureteral stent present: (4) Complicated UTI (urinary tract infection): (5) Hyponatremia: (6) Severe protein-calorie malnutrition: (7) Tobacco use: Plan The patient is a 44-year-old female with a PMH of 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 Complicated UTI History recurrent infections History ureteral stent placement for hydronephrosis, hx cervical cancer status post chemoradiation ongoing immunotherapy Failed outpatient treatment No sepsis for now Has been on intravenous Zosyn for complicated UTI Urine culture is growing less than 1000 colonies per mL preliminary and blood cultures are pending Will continue with intravenous Zosyn for now Appreciate urology input and recommendation Urine culture is growing 3 different types of organismsgiven ureteric stent placement will continue antibiotic for a total of 5 days Remains stable with improvement of her symptoms Likely discharge tomorrow Remains stable with minimal pain involving the left jawline and left renal angle No fever and/or chills and no dysuria She will be discharged home this afternoon Cervical cancer--- she was strongly advised to make an appointment with her oncologist sooner than later Status post chemoradiation and with ongoing immunotherapy CT Abdomen and Pelvis: 1. Heterogeneous contrast-enhancement of the left kidney with multiple patchy 'striated nephrograms', likely representing multifocal pyelonephritis with circumferential urinary bladder wall thickening, inflammatory change in the pelvis and ureteral stent present. No hydronephrosis or hydroureter. 2. Periaortic fluid collection, more conspicuous, measuring up to 4.3 cm, approximating blood attenuation with possible peripheral wall enhancement. Retroperitoneal hemorrhage and/or aortic injury with leaking aorta is on the differential diagnosis. As such, dedicated CTA of the aorta is suggested. With Addendum: On the 01/02/2025 examination, heterogeneous contrast-enhancement of the left kidney is noted, with multiplepatchy striated nephrogram appearing areas, unchanged, possibly representing multifocal pyelonephritis. Alternatively, multifocal renal infarction is also on the differential diagnosis. Mild uroepithelial contrast enhancement of the left renal pelvis is present on both examinations, favoring infection or inflammation. The left ureteral stent is present on the prior examination with decompressed collecting system, unchanged. The para-aortic collection mentioned on the current examination may represent a necrotic lymph node on the 01/02/2025 examination examination, image 38, series 2,now with necrosis on the current exam. If there is concern for aorticinjury, again, CTA is suggested. Hyponatremia secondary to illness- corrected for now at 136 Chronic pain on narcotics Chronic anemia, hemoglobin seems to be at baseline on review of prior blood work Malnutrition Re: Low BMI Ongoing tobacco abuse Nicotine patch as needed DVT prophylaxis with Heparin subcu Full code Total Time Total Time Spent Total Time Spent (In Minutes): 35 Minutes Discharge Plan Discharge Items Patient Disposition: Home - Self-Care Reason For Visit: COMP UTI Discharge Diagnosis: Complicated UTI, status post ureteral stent placement, squamous cell cancer of the cervix, cancer related pain Condition on Discharge: Fair Activity: Resume your previous activity Non-emergency contact: Primary Care Provider Call non-emergency contact if: you have any medication questions and your symptoms worsen Follow-up/Referrals: Dorinda Whelan MD [Primary Care Provider] - (Date & Time 03/13/2025 2:40 PM Provider: Dorinda Mckenna MD [facility] ) Diet: Regular Addtl Attending Provider Instructions: Please take precautions to avoid falls Finish the course of antibiotic and you can take some probiotics [id number] Try to drink more fluid Try to use narcotic pain medications cautiously Please keep your appointments with your healthcare providers make an appointment with oncologist sooner than later Pending Studies at Discharge: No Stand-Alone Forms: [facility], Smoking Cessation Medications and DC Order Prescriptions: New tamsulosin 0.4 mg Capsule 0.4 mg PO HS Qty: 30 0RF cephalexin 500 mg Capsule 500 mg PO TID Qty: 6 0RF oxybutynin chloride 5 mg Tablet 5 mg PO BID Qty: 30 0RF phenazopyridine [Pyridium] 100 mg Tablet 100 mg PO TID PRN (Reason: dysuria) Qty: 10 0RF Continued hydromorphone 4 mg tablet 4 mg PO Q4H PRN (Reason: Pain) morphine 60 mg tablet extended release 60 mg PO BID Probiotic 3 billion cell Capsule 3,000 mmu cells PO DAILY Rx Instructions: administer with a meal sennosides [senna] 8.6 mg tablet 17.2 mg PO HS magnesium citrate 100 mg Capsule 100 mg PO DAILY estradiol 0.5 mg tablet 0.5 mg PO QAM estradiol 0.01 % (0.1 mg/gram) cream 1 applic VAGINAL 3XWK Rx Instructions: Mon/Wed/Fri progesterone micronized 100 mg capsule 100 mg PO QAM Discontinued sulfamethoxazole-trimethoprim 800-160 mg tablet 1 tab PO BID Rx Instructions: Start Date 03/02/25 x7 day supply Discharge Orders: Discharge Order (Routine); Ordered 03/09/25 Ordered By: Lorena Lowe Admission Data Admit Date/Time: 03/06/25 20:21 Attending Provider: Lorena Lowe Admit Provider: Kunal Iyer Primary Care Provider: Dorinda Whelan Other Providers: Kunal Iyer; Mike Rendon; Nitza Obando; Dipak Prado; Beatriz Rivera; Juan José Gannon; Tanisha Taylor; Geovanny Macias; Theo Chawla; Maverick Frazier; Darci Bond; Dorinda Lee Other Interventions: Discharge Summary Assessment (RN) Last Done: 03/09/25 13:19
== END 2025-03-09 14:13 | disposition home or self-care (01) ==
LOC: ED 15:05 → EDINP 20:21 → SUATTDRO 20:21 → INTOOBSV 20:21 → 3W 21:18

== ENCOUNTER 2025-04-01 13:41 | Inpatient (IN) ==
--- NOTE | 2025-04-01 14:03 | Emergency Department Note ---
Impression & Plan Complicated UTI (urinary tract infection), Ureteral stent present, Cancer related pain, Hydronephrosis, left, Anemia ED Provider Note NAME: JOEY JOHNSON AGE: 45 SEX: F : 1980 ARRIVES VIA: Walk-In INFORMANT: Patient ED PROVIDER(S): Hever Landa DO CHIEF COMPLAINT: Left flank pain HPI: Patient is a 45-year-old female with a past medical history of complicated UTIs and squamous cell carcinoma of the cervix receiving chemotherapy with last course on Wednesday who presents to the ER for left flank pain which started on . Associated with dysuria, urgency or frequency. She notes that after chemo she generally gets UTIs. Denies any headache or change in vision. Admitts to nausea. No vomiting. No chest pain or shortness of breath. No other exacerbating or remitting factors. Patient notes that she still has left stent in place. ADDITIONAL HISTORY OBTAINED: Per HPI Chronic Medical/Social Conditions Affecting Care: Per HPI PAST MEDICAL HISTORY:See Below PAST SURGICAL HISTORY:See Below FAMILY HISTORY:See Below SOCIAL HISTORY:See Below HOME MEDICATIONS:See Below ALLERGIES:See Below VITALS:See Below PHYSICAL EXAMINATION: GENERAL: Sitting up in bed, alert, well appearing, well nourished, no distress, non-toxic EYE EXAM: normal conjunctiva. OROPHARYNX: mucous membranes are moist NECK: supple, no nuchal rigidity, no adenopathy, non-tender LUNGS: Clear to auscultation. Normal chest wall mechanics HEART: no murmurs, S1 normal and S2 normal ABDOMEN: abdomen soft, non-tender, normo-active bowel sounds, no masses, no rebound or guarding. UPPER EXTREMITIES: upper extremities are grossly normal. LOWER EXTREMITIES: No pitting edema. NEURO EXAM: Normal sensorium, cranial nerves II-XII grossly intact, normal speech, no gross weakness of arms, no gross weakness of legs. MEDICAL DECISION MAKING: Patient is a 45-year-old female who presents ER for the above-stated complaint. IV was established and blood work was obtained. Labs showed no significant leukopenia. Anemia at 9.9. BMP with LFTs bilirubin and lipase is unremarkable. UA with nitrates leuks whites and +1 bacteria. Patient was given multiple dose of IV pain medications. CT abdomen pelvis showed hydronephrosis. Patient was given IV fluids and IV Rocephin. Patient was updated bedside and discussed case with the hospitalist for further evaluation management treatment. Consults/Care Managements Discussions: Per MDM Triage Nursing notes reviewed. Limited review of prior medical records performed Vital Signs: reviewed and remarkable for tachy Differential diagnosis: Differential diagnoses includes but is not limited to gastritis, peptic ulcer disease, GERD, gallbladder disease, pancreatitis, small bowel obstruction, appendicitis, diverticulitis, hernia, urinary tract infection, torsion, /ectopic (if female), perforation, trauma, infectious. ER treatment provided: See below Diagnostics interpreted by me include EKG and cardiac monitoring as listed below: -Cardiac Monitoring: An order was placed for continuous cardiac monitoring. The monitor shows a rate of 70 with sinus rhythm. -ECG: none -Laboratory studies:Interpreted by me as stated above in MDM and shown below. Imaging studies: Xrays: As interpreted by me:none CTs show: CT abdomen pelvis per my pleurae interpretation showed hydronephrosis CT of the pelvis per radiology as described above Procedures:none Critical Care: None Past Med/Surg History Problem List (Updated 04/01/25 @ 21:37 by Hever Landa DO) Anemia (Acute) Hydronephrosis, left (Acute) Cancer related pain (Acute) Complicated UTI (urinary tract infection) (Acute) Squamous cell carcinoma of cervix (Acute 07/25/24) Ureteral stent present (Acute) Medical History Severe protein-calorie malnutrition Tobacco use Neoplasm causing mass effect on adjacent structures Hyponatremia Hydronephrosis Pelvic mass Surgical History Status post cystoscopy with ureteral stent placement Status post colposcopy History of knee surgery Removal of Spaulding's cyst - right Family History Mother No problems noted. Father , 42yo Cerebral aneurysm S/p nephrectomy Brother No problems noted. Brother No problems noted. Sister Twin Pts twin sister Son No problems noted. Daughter No problems noted. 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 How many Children do You have: 2 Feels Safe at Home: Yes Diet: regular caffeine: No during the past year weight has: decreased > 10 lbs Assistive Devices: None Allergies Allergies Allergy/AdvReac Type Severity Reaction Status Date / Time No Known Allergies Allergy Verified 04/01/25 15:12 Home Meds Home Medications Medication Instructions Recorded Confirmed hydromorphone 4 mg tablet 4 mg PO .Q6-8H PRN Pain 10/02/24 04/01/25 estradiol 0.01% (0.1 mg/gram) 1 applic vaginal 3XWK 02/24/25 04/01/25 vaginal cream progesterone micronized 100 mg 100 mg PO QAM 02/24/25 04/01/25 capsule lactobacillus combination no.4 3 3,000 mmu cells PO DAILY 03/06/25 04/01/25 billion cell capsule (Probiotic) magnesium citrate 100 mg capsule 100 mg PO DAILY 03/06/25 04/01/25 sennosides 8.6 mg tablet (senna) 17.2 mg PO HS 03/06/25 04/01/25 duloxetine 30 mg capsule,delayed 30 mg PO QAM 04/01/25 04/01/25 release fentanyl 75 mcg/hr transdermal 75 mcg transdermal Q72H 04/01/25 04/01/25 patch lactulose 10 gram/15 mL oral 15 ml PO Q8H PRN if no bowel 04/01/25 04/01/25 solution (Constulose) movement in 3 days oxybutynin chloride 5 mg tablet 5 mg PO DAILY 04/01/25 04/01/25 tamsulosin 0.4 mg capsule 0.4 mg PO QAM 04/01/25 04/01/25 Previous Rx's Medication Instructions Recorded phenazopyridine 100 mg tablet 100 mg PO TID PRN dysuria #10 tabs 03/09/25 (Pyridium) Results & Data (ED) Vital Signs Vital Signs - 24 hr 04/01/25 13:51 04/01/25 14:49 04/01/25 14:51 Temperature 37 C Temperature Source Oral Pulse Rate 99 H 82 76 Pulse Rate from SpO2 Sensor 75 Pulse Rhythm Respiratory Rate 18 22 Respiratory Effort / Characteristics Non-Labored Spontaneous Respiratory Depth Normal Respiratory Pattern Regular Blood Pressure 118/72 124/71 Blood Pressure Mean 87 88 Pulse Oximetry 96 96 Oxygen Delivery Method Room Air Sepsis Recent Fever Within 48 Hours No Sepsis New/Unexplained Change in Mental Status N/A Sepsis Action Taken by Nursing No Action Required 04/01/25 14:52 04/01/25 15:42 04/01/25 16:15 Temperature Temperature Source Pulse Rate 77 83 78 Pulse Rate from SpO2 Sensor 82 80 Pulse Rhythm Regular Respiratory Rate 16 20 Respiratory Effort / Characteristics Respiratory Depth Respiratory Pattern Blood Pressure 126/77 117/72 Blood Pressure Mean 93 87 Pulse Oximetry 96 97 93 Oxygen Delivery Method Room Air Room Air Room Air Sepsis Recent Fever Within 48 Hours Sepsis New/Unexplained Change in Mental Status Sepsis Action Taken by Nursing 04/01/25 17:12 04/01/25 18:08 Temperature Temperature Source Pulse Rate 75 83 Pulse Rate from SpO2 Sensor 75 Pulse Rhythm Respiratory Rate 15 Respiratory Effort / Characteristics Respiratory Depth Respiratory Pattern Blood Pressure 128/78 Blood Pressure Mean 94 Pulse Oximetry 95 Oxygen Delivery Method Room Air Sepsis Recent Fever Within 48 Hours Sepsis New/Unexplained Change in Mental Status Sepsis Action Taken by Nursing Laboratory Data 04/01/25 14:47 04/01/25 14:47 Lab Results 04/01/25 Range/Units 14:47 WBC 10.76 (4.8-10.8) K/ul RBC 3.38 L (4.20-5.40) M/uL Hgb 9.9 L (12.0-16.0) g/dl Hct 29.5 L (37.0-47.0) % MCV 87.3 (80.0-100.0) fL MCH 29.3 (25.0-34.0) pg MCHC 33.6 (32.0-36.0) g/dL RDW Std Deviation 46.0 (36.4-46.3) fL RDW Coeff of Fer 14.5 (11.5-14.5) % Plt Count 293 (130-400) K/uL MPV 10.8 (9.4-12.4) fL Immature Gran % (Auto) 0.3 % Neut % (Auto) 78.5 % Lymph % (Auto) 10.8 % [place] % (Auto) 9.5 % Eos % (Auto) 0.6 % Baso % (Auto) 0.3 % Neut # (Auto) 8.46 H (1.40-6.50) K/uL Lymph # (Auto) 1.16 L (1.20-3.40) K/uL [place] # (Auto) 1.02 H (0.11-0.59) K/uL Eos # (Auto) 0.06 (0.00-0.50) K/uL Baso # (Auto) 0.03 (0.00-0.20) K/uL Immature Gran # (Auto) 0.03 (0.01-0.20) K/uL Sodium 135 L (136-145) mmol/L Potassium 4.2 (3.5-5.1) mmol/L Chloride 101 (98-107) mmol/L Carbon Dioxide 25 (21-32) mmol/L Anion Gap 9 (3-11) BUN 11 (6-23) mg/dl Creatinine 0.75 (0.6-1.2) mg/dl Est Cr Clr Drug Dosing 60.0 ml/min eGFR 99.99 BUN/Creatinine Ratio 14.7 (10-20) Glucose 105 H (70-99(Fasting)) mg/dl Calcium 9.5 (8.6-10.3) mg/dl Total Bilirubin 0.4 (0.2-1.0) mg/dl AST 10 L (13-39) U/L ALT 5 L (7-52) U/L Alkaline Phosphatase 84 (34-104) U/L Total Protein 7.1 (6.0-8.3) gm/dl Albumin 3.7 (3.4-5.0) gm/dl Globulin 3.4 (2.5-4.0) gm/dl Albumin/Globulin Ratio 1.1 (0.9-2) Lipase 3 L (11-82) U/L Urine Color Dark Yellow Urine Appearance Cloudy A (Clear) Urine pH 6.5 (4.5-7.5) Ur Specific [place] 1.016 (1.000-1.030) Urine Protein 2+ H (Negative) Urine Glucose (UA) Negative (Negative) Urine Ketones 1+ H (Negative) Urine Blood 1+ H (Negative) Urine Nitrite Positive A (Negative) Urine Bilirubin Negative (Negative) Urine Urobilinogen Negative (Negative) Ur Leukocyte Esterase 3+ H (Negative) Urine WBC (Auto) >50 H (0-5) /hpf Urine RBC (Auto) 3-5 H (0-2) /hpf U Hyaline Cast (Auto) 3-5 H (0-2) /lpf U Epithel Cells (Auto) 0-2 (0-2) /hpf Urine Bacteria (Auto) 1+ H (None Seen) Urine Test Negative (Negative) Urine Comment Administered Medications Hydromorphone HCl (Hydromorphone Inj 0.5 Mg/0.5 Ml Syr) 0.5 mg IV Q6H PRN PRN Reason: Severe Pain (Scale 7, 8, 9,10) Stop: 04/15/25 18:31 Last Admin: 04/01/25 19:13 Dose: 0.5 mg Documented By: MILLICENT Sodium Chloride (Nss) 1,000 mls @ 60 mls/hr IV .[id number] KENDRA Stop: 04/02/25 11:09 Last Admin: 04/01/25 19:14 Dose: 60 mls/hr Documented By: MILLICENT Sennosides (Senna 8.6 Mg Tab) 17.2 mg PO HS KENDRA Stop: 05/01/25 20:59 Last Admin: 04/01/25 20:50 Dose: 17.2 mg Documented By: BERLIN Discontinued Medications Sodium Chloride (Nss) 1,000 mls @ 999 mls/hr IV .Q1H1M ONE Stop: 04/01/25 15:01 Last Infusion: 04/01/25 15:43 Dose: Infused Documented By: Admin: 04/01/25 14:39 Dose: 999 mls/hr Documented By: REKHA Ceftriaxone Sodium (Rocephin) 2,000 mg in 50 mls @ 100 mls/hr IV NOW STA Stop: 04/01/25 16:10 Last Infusion: 04/01/25 16:35 Dose: Infused Documented By: Admin: 04/01/25 15:46 Dose: 100 mls/hr Documented By: REKHA Ioversol (Optiray 320 100ml) 90 ml IV ONCE ONE Stop: 04/01/25 16:01 Last Admin: 04/01/25 16:00 Dose: 90 ml Documented By: ANUJ Morphine Sulfate (Morphine Sulfate 10 Mg/Ml Carp/Vial) 6 mg IV NOW STA Stop: 04/01/25 14:02 Last Admin: 04/01/25 14:34 Dose: 6 mg Documented By: REKHA Morphine Sulfate (Morphine Sulfate 4 Mg/Ml 1 Ml Carp\Vial) 4 mg IV NOW STA Stop: 04/01/25 14:38 Last Admin: 04/01/25 15:46 Dose: 4 mg Documented By: REKHA Morphine Sulfate (Morphine Sulfate 4 Mg/Ml 1 Ml Carp\Vial) 4 mg IV NOW STA Stop: 04/01/25 18:00 Last Admin: 04/01/25 18:22 Dose: 4 mg Documented By: REKHA Ondansetron HCl (Ondansetron Inj 2 Mg/Ml 2 Ml Vial) 4 mg IV NOW STA Stop: 04/01/25 14:02 Last Admin: 04/01/25 14:33 Dose: 4 mg Documented By: REKHA Imaging Data Radiologist's Impression: Abdomen/Pelvis CT 04/01/25 14:00 Exam: CT abdomen/pelvis with IV contrast. Reason for exam: History of cervical CORD, currently getting chemotherapy. Urinary tract infection symptoms. Currently having left flank pain with urinary burning and urgency. Previous studies: 03/06/2025. FINDINGS: The lower lung zones are clear. Liver, pancreas and spleen remain unremarkable. Adrenal glands are unremarkable. Right kidney unremarkable. Left ureteral stent remains present with the upper loop in the renal pelvis. There is moderately increased in degree of hydronephrosis as compared to the most recent previous study of 03/06/2025. The distal loop of the left ureteral catheter remains present in the urinary bladder. The urinary bladder itself is not distended although there is diffuse wall thickening. The retroperitoneal/periaortic collection in the in the upper abdomen narrowing remains present and is stable. No contrast leakage or direct extravasation is seen at this time. No free fluid is seen. No evidence of bowel obstruction or free air is seen. IMPRESSION: 1. Moderate hydronephrosis left kidney, increased in severity as compared to the most recent previous CT study of 03/06/2025. 2. Continued presence of diffuse thickening of the wall of the urinary bladder. 3. Centimeters in size and appearance of the retroperitoneal periaortic collection. Electronically signed by Herberth Gallegos 04-01-2025 5:27 PM Discharge Plan Visit Data Chief Complaint: Urinary Symptoms Stated Complaint: UTI, PAIN NAUSEA ED Provider: Hever Landa Discharge Problem: Complicated UTI (urinary tract infection), Ureteral stent present, Cancer related pain, Hydronephrosis, left, Anemia Condition: Fair Discharge Instructions Interventions: ED Discharge Assessment Last Done: 04/01/25 21:24 Discharge Problem: Anemia Qualifiers: Anemia type: unspecified type Qualified Code(s): D64.9 - Anemia, unspecified
[2025-04-01] MEDS: ONDANSETRON INJ 2 MG/ML 2 ML VIAL IV STA (14:33)
[2025-04-01] MEDS: MoRPHine SULFATE 10 MG/ML CARP/VIAL IV STA (14:34)
[2025-04-01] MEDS: SODIUM CHLORIDE 0.9% 1,000 ML IV ONE (14:39)
[2025-04-01 15:14] LABS: Hematocrit (blood only) 29.5 % (37.0-47.0); Hemoglobin 9.9 g/dl (12.0-16.0); Immature Granulocytes # (auto) 0.03 K/uL (0.01-0.20); Immature Granulocytes % (auto) 0.3 %; Mean Corpuscular Hemoglobin 29.3 pg (25.0-34.0); Mean Corpuscular Volume 87.3 fL (80.0-100.0); Platelet Count 293 K/uL (130-400); RDW Standard Deviation 46.0 fL (36.4-46.3); Red Blood Count 3.38 M/uL (4.20-5.40); White Blood Count 10.76 K/ul (4.8-10.8)
[2025-04-01 15:26] LABS: Appearance Urine Cloudy (Clear); Bacteria Urine Automated 1+ (None Seen); Epithelial Cell Urine Auto 0-2 /hpf (0-2); Glucose Urine UA Negative (Negative); WBC Urine Automated >50 /hpf (0-5)
[2025-04-01 15:31] LABS: Alanine Aminotransferase 5.0 U/L (7-52); Albumin Globulin Ratio 1.1 (0.9-2); Alkaline Phosphatase 84.0 U/L (34-104); Anion Gap 9.0 (3-11); Bilirubin,Total 0.4 mg/dl (0.2-1.0); Blood Urea Nitrogen 11.0 mg/dl (6-23); Calcium 9.5 mg/dl (8.6-10.3); Carbon Dioxide 25.0 mmol/L (21-32); Chloride 101.0 mmol/L (98-107); Creatinine Clr Calc Pharmacy 60.0 ml/min; Globulin 3.4 gm/dl (2.5-4.0); Glucose 105.0 mg/dl (70-99(Fasting)); Lipase 3.0 U/L (11-82); Potassium 4.2 mmol/L (3.5-5.1); Sodium 135.0 mmol/L (136-145); Total Protein 7.1 gm/dl (6.0-8.3)
[2025-04-01] MEDS: MoRPHine SULFATE 4 MG/ML 1 ML CARP\\VIAL IV STA ×2 (15:46→18:22)
[2025-04-01] MEDS: cefTRIAXone SODIUM 2,000 MG/50 ML BAG IV STA (15:46)
[2025-04-01] MEDS: OPTIRAY 320 100ml IV ONE (16:00)
--- NOTE | 2025-04-01 17:28 | CT Scan Report ---
Exam: CT abdomen/pelvis with IV contrast. Reason for exam: History of cervical CORD, currently getting chemotherapy. Urinary tract infection symptoms. Currently having left flank pain with urinary burning and urgency. Previous studies: 03/06/2025. FINDINGS: The lower lung zones are clear. Liver, pancreas and spleen remain unremarkable. Adrenal glands are unremarkable. Right kidney unremarkable. Left ureteral stent remains present with the upper loop in the renal pelvis. There is moderately increased in degree of hydronephrosis as compared to the most recent previous study of 03/06/2025. The distal loop of the left ureteral catheter remains present in the urinary bladder. The urinary bladder itself is not distended although there is diffuse wall thickening. The retroperitoneal/periaortic collection in the in the upper abdomen narrowing remains present and is stable. No contrast leakage or direct extravasation is seen at this time. No free fluid is seen. No evidence of bowel obstruction or free air is seen. IMPRESSION: 1. Moderate hydronephrosis left kidney, increased in severity as compared to the most recent previous CT study of 03/06/2025. 2. Continued presence of diffuse thickening of the wall of the urinary bladder. 3. Centimeters in size and appearance of the retroperitoneal periaortic collection. Electronically signed by Herberth Gallegos 04-01-2025 5:27 PM
[2025-04-01] MEDS ORDERED: POLYETHYLENE (MIRALAX) 17 GM PACK PO PRN (18:27)
--- NOTE | 2025-04-01 18:43 | History & Physical Report ---
Date of Service April 01, 2025 Assessment & Plan (1) Hydronephrosis, left: (2) Cancer related pain: (3) Complicated UTI (urinary tract infection): Plan Complicated UTI Worsening left-sided hydronephrosis History of recurrent UTI infection after chemotherapy Patient comes in with worsening left flank pain, and worsening pain and burning with passing urine since last 3 days. Last chemotherapy was about 4 days ago. Admitting CTAP Reviewed. Continue with Rocephin, follow admitting urine culture. Continue with IV fluid, continue with pain management, urology consult. Cervical cancer: Patient follows up with oncology as an outpatient, Last Treatment Was on 03/28. Severe Malnutrition: Patient Cachectic in Appearance in the Setting of Chronic Illness/Cancer. Dietitian Consult. Monitor Replete Electrolytes. Mild Hyponatremia: Secondary to Acute Illness, Expect to Improve with Improving Illness. Chronic Pain on Narcotics, Continue Pain Management. Chronic Anemia, Hemoglobin at Baseline, Continue to Monitor. Ongoing Tobacco Abuse: Patient Counseled regarding Smoking Cessation, She Declined Nicotine Patch. She Is Not Interested in Smoking Cessation. 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 Patient reports worsening left flank pain and pain and burning with passing urine since 3 days, denies fever, reports starting to feel right flank pain today. No CVA angle tenderness on exam. Patient reports constipation at baseline. Patient denies sore throat/cough/chest pain/vomiting. Patient re ports chronic low back pain. Patient reports nausea. 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 Patient reports smoking half packs a day, denies nicotine patch. Denies alcohol and recreational drug use. Medications reviewed with the patient at bedside. Plan of care discussed with the patient and her at bedside, who voiced understanding. Full code Allergies Allergy/AdvReac Type Severity Reaction Status Date / Time No Known Allergies Allergy Verified 04/01/25 15:12 Home Medications Medication Instructions Recorded Confirmed Type hydromorphone 4 mg tablet 4 mg PO .Q6-8H PRN Pain 10/02/24 04/01/25 History estradiol 0.01% (0.1 mg/gram) 1 applic vaginal 3XWK 02/24/25 04/01/25 History vaginal cream progesterone micronized 100 mg 100 mg PO QAM 02/24/25 04/01/25 History capsule lactobacillus combination no.4 3 3,000 mmu cells PO DAILY 03/06/25 04/01/25 History billion cell capsule (Probiotic) magnesium citrate 100 mg capsule 100 mg PO DAILY 03/06/25 04/01/25 History sennosides 8.6 mg tablet (senna) 17.2 mg PO HS 03/06/25 04/01/25 History phenazopyridine 100 mg tablet 100 mg PO TID PRN dysuria #10 tabs 03/09/25 04/01/25 Rx (Pyridium) duloxetine 30 mg capsule,delayed 30 mg PO QAM 04/01/25 04/01/25 History release fentanyl 75 mcg/hr transdermal 75 mcg transdermal Q72H 04/01/25 04/01/25 History patch lactulose 10 gram/15 mL oral 15 ml PO Q8H PRN if no bowel 04/01/25 04/01/25 History solution (Constulose) movement in 3 days oxybutynin chloride 5 mg tablet 5 mg PO DAILY 04/01/25 04/01/25 History tamsulosin 0.4 mg capsule 0.4 mg PO QAM 04/01/25 04/01/25 History Past Med/Surg History Problem List (Updated 03/27/25 @ 00:06 by Sara Rao) Hydronephrosis, left Cancer related pain (Acute) Complicated UTI (urinary tract infection) (Acute) Squamous cell carcinoma of cervix (Acute 07/25/24) Ureteral stent present (Acute) Medical History Severe protein-calorie malnutrition Tobacco use Neoplasm causing mass effect on adjacent structures Hyponatremia Hydronephrosis Pelvic mass Surgical History Status post cystoscopy with ureteral stent placement Status post colposcopy History of knee surgery Removal of Spaulding's cyst - right Family History Mother No problems noted. Father , 42yo Cerebral aneurysm S/p nephrectomy Brother No problems noted. Brother No problems noted. Sister Twin Pts twin sister Son No problems noted. Daughter No problems noted. 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 Physical Exam Physical Exam: GENERAL: Alert and oriented x3. NAD, on RA. Appears older than stated age, chronically ill, frail, weak. Appears cachectic. HEENT: No pallor, no icterus. Pupils equal, round and reactive to light. Oral mucosa dry. NECK: No JVD, no neck masses. HEART: S1 and S2 heard. Regular rate and rhythm. No murmur, no gallop. RESPIRATORY SYSTEM: Normal AP diameter. No accessory muscle use. No wheezing, no crackles. ABDOMEN: Soft, bowel sounds present, Lower abdominal tenderness mild, no distention. No bilateral CVA angle tenderness CENTRAL NERVOUS SYSTEM: No facial droop. Speech is clear. Obeys simple commands. Moves extremities. EXTREMITIES: No edema, no erythema seen. Results & Data Results & Data Vital Signs (Past 12 Hours) Vital Signs Temp Pulse Resp BP Pulse Ox O2 Del Method 04/01/25 18:08 83 04/01/25 17:12 75 15 128/78 95 Room Air 04/01/25 16:15 78 20 117/72 93 Room Air 04/01/25 15:42 83 16 126/77 97 Room Air 04/01/25 14:52 77 96 Room Air 04/01/25 14:51 76 22 124/71 96 04/01/25 14:49 82 04/01/25 13:51 37 C 99 H 18 118/72 96 Room Air
[2025-04-01] MEDS: HYDROmorphone INJ 0.5 MG/0.5 ML SYR IV PRN (19:13)
[2025-04-01] MEDS: SODIUM CHLORIDE 0.9% 1,000 ML IV SCH (19:14)
[2025-04-01] MEDS: SENNA 8.6 MG TAB PO SCH (20:50)
[2025-04-01] MEDS: HEPARIN SOD 5,000 UNIT/0.5 ML VIAL SQ SCH (22:32)
[2025-04-01] MEDS: KETOROLAC TROMETHAMINE 15 MG/ML VIAL IV ONE (22:46)
[2025-04-02] MEDS: HYDROmorphone INJ 0.5 MG/0.5 ML SYR IV PRN (03:15)
[2025-04-02] MEDS: ONDANSETRON INJ 2 MG/ML 2 ML VIAL IV PRN (07:27)
[2025-04-02 07:31] LABS: Hematocrit (blood only) 30.0 % (37.0-47.0); Hemoglobin 9.6 g/dl (12.0-16.0); Mean Corpuscular Hemoglobin 28.5 pg (25.0-34.0); Mean Corpuscular Volume 89.0 fL (80.0-100.0); Platelet Count 261 K/uL (130-400); RDW Standard Deviation 47.9 fL (36.4-46.3); Red Blood Count 3.37 M/uL (4.20-5.40); White Blood Count 9.86 K/ul (4.8-10.8)
[2025-04-02 07:58] LABS: Anion Gap 12.0 (3-11); Blood Urea Nitrogen 11.0 mg/dl (6-23); Calcium 9.1 mg/dl (8.6-10.3); Carbon Dioxide 21.0 mmol/L (21-32); Chloride 102.0 mmol/L (98-107); Creatinine Clr Calc Pharmacy 62.0 ml/min; Glucose 63.0 mg/dl (70-99(Fasting)); Magnesium 1.7 mg/dl (1.7-2.4); Potassium 4.2 mmol/L (3.5-5.1); Sodium 135.0 mmol/L (136-145)
[2025-04-02] MEDS: KETOROLAC TROMETHAMINE 15 MG/ML VIAL IV PRN (08:25)
[2025-04-02] MEDS: TAMSULOSIN HCL 0.4 MG CAP PO SCH (08:57)
[2025-04-02] MEDS ORDERED: ADVANCED PROBIOTIC 625 MG CAPSULE PO SCH (09:00)
[2025-04-02] MEDS ORDERED: NON-FORMULARY MEDICATION (Magnesium Citrate 100 mg Capsule) PO SCH (09:00)
[2025-04-02] MEDS: ADVANCED PROBIOTIC 625 MG CAPSULE PO SCH (10:19)
[2025-04-02] MEDS: SODIUM CHLORIDE 0.9% 1,000 ML IV ONE ×2 (10:23→11:54)
--- NOTE | 2025-04-02 12:24 | Urology Consultation ---
<Statement entered by Maverick Frazier MD - 04/03/25 11:30> Case reviewed generally agree with assessment and plan. Notable that has seemingly had progression of left hydro in setting extrinsic compression left uvj by malignancy. Options somewhat limited likely some degree of renal damage due to chronic left obstruction despite stent based on hydro progression though systemic renal function remains intact. Optimal management from kidney protection standpoint would be nephrostomy tube but this has many QOL issues including displacement with ed visits, requirement for PCN change ~ Q6-18 weeks, discomfort, external urinary appliance vs internal stent with associated symptoms but much easier management. Unfortunately internal stent efficacy waning but next steps can be discussed in outpatient setting. Date of Consultation April 02, 2025 Assessment & Plan (1) Hydronephrosis, left: 45-year-old female with history of left hydronephrosis secondary to invasive cervical cancer. She is status post cystoscopy and left ureteral stent placement on 09/20/[address] Bond. She was admitted to the hospital medicine service for suspected complicated UTI, left hydronephrosis and cancer related pain. Patient is afebrile and hemodynamically stable Labs reviewedcreatinine 0.74, WBC 9.86, hemoglobin 9.6 Her stent placed in August 2024 can remain up to a year before replacement CTAP reviewedleft ureteral stent in good position, moderate left hydronephrosis UA with 1+ blood, positive nitrates, 3+ LE, pyuria, and 1+ bacteria Urine culture prelim with pinpoint growth, reincubating Continue with broad-spectrum antibiotics and follow culture Recent cultures have shown no bacterial growth No acute intervention at this time Possible stent related pain versus cancer related pain Continue with tamsulosin and anticholinergic for stent management, additional pain management as needed Consider percutaneous nephrostomy tube for management if she continues to have significant pain/issues with stent will sign off, please contact her service with any additional questions or concerns History of Present Illness Reason for Consultation: UTI, left hydronephrosis Attending Physician: Sharan Burnett MD History of Present Illness This is a 45-year-old female who follows with urology for left hydronephrosis secondary to invasive cervical cancer. She is status post cystoscopy and left ureteral stent placement on 09/20/[address] Bond. She completed chemotherapy and radiation and is now on Keytruda. She presented to the emergency department on 04/01/2025 for evaluation of left flank pain and dysuria. On arrival to ED, she was afebrile and hemodynamically stable. Lab work showed WBC 10.76, hemoglobin 9.9, sodium 135, creatinine 0.75. Urinalysis showed 2+ protein, 1+ blood, positive nitrates, 3+ LE, >50 WBC, 3-5 RBC, 0-2 epithelial cells and 1+ bacteria. Urine negative. Workup in ED included CT abdomen pelvis. CT independently reviewed and shows moderate left hydronephrosis with left ureteral stent in good position. She was started on ceftriaxone. She was admitted to the hospital medicine service for suspected complicated UTI, left hydronephrosis and cancer related pain. Labs today reviewedcreatinine 0.74, WBC 9.86, hemoglobin 9.6 Urine culture prelim pinpoint growth present, reincubating Patient seen and examined at bedside this morning. She is resting in bed. She reports bilateral flank and abdominal discomfort this morning. No fever or chills. No dysuria or hematuria. Allergies Allergy/AdvReac Type Severity Reaction Status Date / Time No Known Allergies Allergy Verified 04/01/25 15:12 Home Medications Medication Instructions Recorded Confirmed Type hydromorphone 4 mg tablet 4 mg PO .Q6-8H PRN Pain 10/02/24 04/01/25 History estradiol 0.01% (0.1 mg/gram) 1 applic vaginal 3XWK 02/24/25 04/01/25 History vaginal cream progesterone micronized 100 mg 100 mg PO QAM 02/24/25 04/01/25 History capsule lactobacillus combination no.4 3 3,000 mmu cells PO DAILY 03/06/25 04/01/25 History billion cell capsule (Probiotic) magnesium citrate 100 mg capsule 100 mg PO DAILY 03/06/25 04/01/25 History sennosides 8.6 mg tablet (senna) 17.2 mg PO HS 03/06/25 04/01/25 History phenazopyridine 100 mg tablet 100 mg PO TID PRN dysuria #10 tabs 03/09/25 04/01/25 Rx (Pyridium) duloxetine 30 mg capsule,delayed 30 mg PO QAM 04/01/25 04/01/25 History release fentanyl 75 mcg/hr transdermal 75 mcg transdermal Q72H 04/01/25 04/01/25 History patch lactulose 10 gram/15 mL oral 15 ml PO Q8H PRN if no bowel 04/01/25 04/01/25 History solution (Constulose) movement in 3 days oxybutynin chloride 5 mg tablet 5 mg PO DAILY 04/01/25 04/01/25 History tamsulosin 0.4 mg capsule 0.4 mg PO QAM 04/01/25 04/01/25 History Patient History Medical History Severe protein-calorie malnutrition Tobacco use Neoplasm causing mass effect on adjacent structures Hyponatremia Hydronephrosis Pelvic mass Surgical History Status post cystoscopy with ureteral stent placement Status post colposcopy History of knee surgery Removal of Spaulding's cyst - right Family History Mother No problems noted. Father , 42yo Cerebral aneurysm S/p nephrectomy Brother No problems noted. Brother No problems noted. Sister Twin Pts twin sister Son No problems noted. Daughter No problems noted. 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 How many Children do You have: 2 Other Information That Helps Us Care for You: No Feels Safe at Home: Yes Safety Concerns: Feels Safe At This Time Diet: regular caffeine: No during the past year weight has: decreased > 10 lbs Assistive Devices: None Review of Systems Constitutional: as per Subjective / HPI Genitourinary: as per Subjective / HPI Physical Exam Constitutional: + thin; no acute distress Respiratory: normal respiratory effort; no respiratory distress and no labored breathing Gastrointestinal (Abdomen): Inspection/Auscultation: abdomen normal to inspection Musculoskeletal: Head/Neck/Chest: normocephalic Neurologic: moves all extremities and awake Psychiatric: Orientation: alert and oriented x 3 Results & Data Vital Signs (Past 12 Hours) Vital Signs Temp Pulse Pulse Resp BP Pulse Ox O2 Del Method 04/02/25 11:00 37.0 C 78 17 98/58 L 94 Room Air 04/02/25 07:40 37.0 C 80 16 109/70 94 Room Air 04/02/25 05:18 65 04/02/25 03:39 37.1 C 77 16 96/60 L 95 Room Air PG Care Time/CCT Total # of Minutes Spent Total Time Spent with Patient: Total time spent is greater than 50% in coordination of care (as documented) at patient's floor/unit and/or counseling patient: Coding Level of Care Code 10457 IN/OBS CONSULT LVL 4,60M Diagnoses Hydronephrosis, left N13.30
--- NOTE | 2025-04-02 14:36 | Hospitalist Progress Note ---
Date of Service April 02, 2025 Assessment & Plan (1) Hydronephrosis, left: (2) Cancer related pain: (3) Complicated UTI (urinary tract infection): Plan Patient comes in with worsening left flank pain, and worsening pain and burning with passing urine since last 3 days. Complicated UTI Worsening left-sided hydronephrosis H/O recurrent UTI infection after chemotherapy H/O left hydronephrosis secondary to invasive cervical cancer S/P left ureteral stent placement in August 2024 --CT ABD:Moderate hydronephrosis left kidney, increased in severity as compared to the most recent previous CT study of 03/06/2025. Continued presence of diffuse thickening of the wall of the urinary bladder. Centimeters in size and appearance of the retroperitoneal periaortic collection. 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 Chronic Anemia Monitor CBC Ongoing Tobacco Abuse: Declined Nicotine Patch Not Interested in Smoking Cessation DVT Px: Heparin SQ Code Status Full Code Admission and Anticipated Discharge Date Admission Date: April 01, 2025 Subjective Patient is seen and examined at bedside Reports bilateral flank pain sometimes radiating to groin area Also states having mild dysuria and constipation Denies any chest pain, dyspnea, vomiting No other complaints Review of Systems Review of Systems: All systems reviewed & are unremarkable except as noted in Subjective Physical Exam Physical Exam: Physical Exam: Vitals signs as noted above General Appearance:Thin, frail, no apparent distress Head: normocephalic, Atraumatic Eyes: normal inspection, EOMI Neck: supple, Trachea midline Respiratory/Chest: Normal breath sounds, CTA, No accessory muscle use Cardiovascular: S1, S2, No murmur Abdomen/GI:Soft, mild flank tender, Bowel sounds present Extremities/Musculoskeletal:normal inspection, no edema Neurologic/Psych:AAOX3, grossly no focal neurological deficits Skin: normal color, warm Results & Data Results & Data Vital Signs (Past 12 Hours) Vital Signs Temp Pulse Pulse Resp BP Pulse Ox O2 Del Method 04/02/25 11:00 37.0 C 78 17 98/58 L 94 Room Air 04/02/25 07:40 37.0 C 80 16 109/70 94 Room Air 04/02/25 05:18 65 04/02/25 03:39 37.1 C 77 16 96/60 L 95 Room Air Laboratory Results Short CBC 04/01/25 04/02/25 Range/Units 14:47 07:18 WBC 10.76 9.86 (4.8-10.8) K/ul Hgb 9.9 L 9.6 L (12.0-16.0) g/dl Hct 29.5 L 30.0 L (37.0-47.0) % Plt Count 293 261 (130-400) K/uL BMP 04/01/25 04/02/25 14:47 07:18 Sodium 135 L 135 L Potassium 4.2 4.2 Chloride 101 102 Carbon Dioxide 25 21 BUN 11 11 Creatinine 0.75 0.74 Glucose 105 H 63 L Calcium 9.5 9.1 Liver Function 04/01/25 Range/Units 14:47 Total Bilirubin 0.4 (0.2-1.0) mg/dl AST 10 L (13-39) U/L ALT 5 L (7-52) U/L Alkaline Phosphatase 84 (34-104) U/L Albumin 3.7 (3.4-5.0) gm/dl Urine 04/01/25 Range/Units 14:47 Urine Color Dark Yellow Urine Appearance Cloudy A (Clear) Urine pH 6.5 (4.5-7.5) Ur Specific [place] 1.016 (1.000-1.030) Urine Protein 2+ H (Negative) Urine Glucose (UA) Negative (Negative)
[2025-04-02] MEDS: cefTRIAXone SODIUM 2,000 MG/50 ML BAG IV SCH (16:43)
[2025-04-03] MEDS: MAGNESIUM HYDROXIDE SUSP 30 ML UDC PO PRN (10:38)
--- NOTE | 2025-04-03 10:49 | Hospitalist Progress Note ---
Date of Service April 03, 2025 Assessment & Plan (1) Hydronephrosis, left: (2) Cancer related pain: (3) Complicated UTI (urinary tract infection): Plan Patient comes in with worsening left flank pain, and worsening pain and burning with passing urine since last 3 days. Complicated UTI Worsening left-sided hydronephrosis H/O recurrent UTI infection after chemotherapy H/O left hydronephrosis secondary to invasive cervical cancer S/P left ureteral stent placement in August 2024 --CT ABD:Moderate hydronephrosis left kidney, increased in severity as compared to the most recent previous CT study of 03/06/2025. Continued presence of diffuse thickening of the wall of the urinary bladder. Centimeters in size and appearance of the retroperitoneal periaortic collection. 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 Chronic Anemia Monitor CBC Ongoing Tobacco Abuse: Declined Nicotine Patch Not Interested in Smoking Cessation DVT Px: Heparin SQ Code Status Full Code Disposition Expect to discharge home Admission and Anticipated Discharge Date Admission Date: April 01, 2025 Subjective Patient is seen and examined at bedside States feeling nausea earlier today Reports bilateral flank pain about the same as yesterday Feels that she is not ready for discharge today Denies any chest pain, dyspnea, vomiting Review of Systems Review of Systems: All systems reviewed & are unremarkable except as noted in Subjective Physical Exam Physical Exam: Physical Exam: Vitals signs as noted above General Appearance:Thin, frail, no apparent distress Head: normocephalic, Atraumatic Eyes: normal inspection, EOMI Neck: supple, Trachea midline Respiratory/Chest: Normal breath sounds, CTA, No accessory muscle use Cardiovascular: S1, S2, No murmur Abdomen/GI:Soft, mild flank tender, Bowel sounds present Extremities/Musculoskeletal:normal inspection, no edema Neurologic/Psych:AAOX3, grossly no focal neurological deficits Skin: normal color, warm Results & Data Results & Data Vital Signs (Past 12 Hours) Vital Signs Temp Pulse Pulse Pulse Resp BP Pulse Ox 04/03/25 07:34 37.1 C 72 18 94/59 L 96 04/03/25 07:32 52 L 04/03/25 03:18 37 C 59 L 16 104/58 L 96 O2 Del Method 04/03/25 07:34 Room Air 04/03/25 07:32 04/03/25 03:18 Room Air
[2025-04-03] MEDS: SODIUM CHLORIDE 0.9% 1,000 ML IV ONE (10:54)
[2025-04-03] MEDS: ALUMINUM/MAGNESIUM SUSP 30 ML UDC PO PRN (17:19)
[2025-04-04 08:12] LABS: Hematocrit (blood only) 26.8 % (37.0-47.0); Hemoglobin 9.0 g/dl (12.0-16.0); Mean Corpuscular Hemoglobin 29.5 pg (25.0-34.0); Mean Corpuscular Volume 87.9 fL (80.0-100.0); Platelet Count 236 K/uL (130-400); RDW Standard Deviation 45.9 fL (36.4-46.3); Red Blood Count 3.05 M/uL (4.20-5.40); White Blood Count 7.34 K/ul (4.8-10.8)
[2025-04-04 08:38] LABS: Anion Gap 6.0 (3-11); Blood Urea Nitrogen 6.0 mg/dl (6-23); Calcium 9.0 mg/dl (8.6-10.3); Carbon Dioxide 28.0 mmol/L (21-32); Chloride 99.0 mmol/L (98-107); Creatinine Clr Calc Pharmacy 79.8 ml/min; Glucose 93.0 mg/dl (70-99(Fasting)); Potassium 4.1 mmol/L (3.5-5.1); Sodium 133.0 mmol/L (136-145)
[2025-04-04] MEDS: LACTULOSE SYRUP 10 GM/15 ML BTL 960 ML PO PRN (10:00)
--- NOTE | 2025-04-04 12:02 | Hospitalist Progress Note ---
Date of Service April 04, 2025 Assessment & Plan (1) Hydronephrosis, left: (2) Cancer related pain: (3) Complicated UTI (urinary tract infection): Plan Patient comes in with worsening left flank pain, and worsening pain and burning with passing urine since last 3 days. Complicated UTI Worsening left-sided hydronephrosis H/O recurrent UTI infection after chemotherapy H/O left hydronephrosis secondary to invasive cervical cancer S/P left ureteral stent placement in August 2024 --CT ABD:Moderate hydronephrosis left kidney, increased in severity as compared to the most recent previous CT study of 03/06/2025. Continued presence of diffuse thickening of the wall of the urinary bladder. Centimeters in size and appearance of the retroperitoneal periaortic collection. 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 Chronic Anemia Monitor CBC Ongoing Tobacco Abuse: Declined Nicotine Patch Not Interested in Smoking Cessation DVT Px: Heparin SQ Code Status Full Code Disposition Expect to discharge home Admission and Anticipated Discharge Date Admission Date: April 03, 2025 Subjective Pt seen in follow up Hx of cervical cancer, also follows w/ urology, ureteral stent placed Reports bilateral flank pain and left lower abd. discomfort, also reports discomfort w/ urination today No fevers, chills, chest pain, shortness of breath + constipation Contacted by pharmacy - concern that UTI is real, not a contaminant, abx switch to vancomycin, official ID consult placed Review of Systems Review of Systems: All systems reviewed & are unremarkable except as noted in Subjective Physical Exam Physical Exam: General Appearance:Thin, frail, no apparent distress Head: normocephalic, Atraumatic Eyes: normal inspection, EOMI Neck: supple Respiratory/Chest: Normal breath sounds, CTA, No accessory muscle use Cardiovascular: S1, S2, No murmur Abdomen/GI: Soft, mild flank tender, Bowel sounds present Extremities/Musculoskeletal: normal inspection, no edema Neurologic/Psych: awake,alert, answers appropriately, speech fluent, moves extremities Skin: normal color, warm Results & Data Results & Data Vital Signs (Past 12 Hours) Vital Signs Temp Pulse Pulse Resp BP Pulse Ox O2 Del Method 04/04/25 11:11 37.1 C 63 16 111/70 95 Room Air 04/04/25 07:52 54 L 04/04/25 07:40 36.8 C 62 18 113/67 96 Room Air 04/04/25 02:10 36.6 C 65 16 117/70 96 Room Air Laboratory Results 04/04/25 Range/Units 05:43 WBC 7.34 (4.8-10.8) K/ul RBC 3.05 L (4.20-5.40) M/uL Hgb 9.0 L (12.0-16.0) g/dl Hct 26.8 L (37.0-47.0) % MCV 87.9 (80.0-100.0) fL MCH 29.5 (25.0-34.0) pg MCHC 33.6 (32.0-36.0) g/dL RDW Std Deviation 45.9 (36.4-46.3) fL RDW Coeff of Fer 14.3 (11.5-14.5) % Plt Count 236 (130-400) K/uL MPV 11.7 (9.4-12.4) fL Sodium 133 L (136-145) mmol/L Potassium 4.1 (3.5-5.1) mmol/L Chloride 99 (98-107) mmol/L Carbon Dioxide 28 (21-32) mmol/L Anion Gap 6 (3-11) BUN 6 (6-23) mg/dl Creatinine 0.59 L (0.6-1.2) mg/dl Est Cr Clr Drug Dosing 79.8 ml/min eGFR 113.19 BUN/Creatinine Ratio 10.2 (10-20) Glucose 93 (70-99(Fasting)) mg/dl Calcium 9.0 (8.6-10.3) mg/dl Medications Administered Current Inpatient Medications Acetaminophen (Acetaminophen 325 Mg Tab) 650 mg PO Q4H PRN PRN Reason: Pain or Fever Stop: 05/01/25 18:26 Al Hydrox/Mg Hydrox/Simethicone (Aluminum/Magnesium Susp 30 Ml Udc) 15 ml PO Q4H PRN PRN Reason: Dyspepsia Stop: 05/01/25 18:26 Last Admin: 04/03/25 17:19 Dose: 15 ml Bisacodyl (Bisacodyl 5 Mg Tabec) 5 mg PO DAILY PRN PRN Reason: Constipation Stop: 05/02/25 11:21 Duloxetine HCl (Duloxetine Hcl 30 Mg Cap) 30 mg PO QAM [facility] Stop: 05/02/25 08:59 Last Admin: 04/04/25 08:21 Dose: 30 mg Fentanyl (Fentanyl 75 Mcg/Hr Tdsy) 1 patch TD Q72H [facility] Stop: 04/16/25 14:59 Last Admin: 04/02/25 15:27 Dose: 1 patch Heparin Sodium (Porcine) (Heparin Sod 5,000 Unit/0.5 Ml Vial) 5,000 units SQ Q12 [facility] Stop: 05/01/25 20:59 Last Admin: 04/04/25 08:22 Dose: Not Given Hydromorphone HCl (Hydromorphone Hcl 2 Mg Tab) 4 mg PO Q6H PRN PRN Reason: Q6-8HR PRNPain Stop: 04/15/25 18:29 Last Admin: 04/04/25 08:21 Dose: 4 mg Hydromorphone HCl (Hydromorphone Inj 0.5 Mg/0.5 Ml Syr) 0.5 mg IV Q4H PRN PRN Reason: Severe Pain (Scale 7, 8, 9,10) Stop: 04/15/25 18:31 Last Admin: 04/03/25 20:25 Dose: 0.5 mg Lactobacillus Acidophilus (Advanced Probiotic 625 Mg Capsule) 1,250 mg PO DAILY [facility] Stop: 05/02/25 08:59 Last Admin: 04/04/25 08:21 Dose: 1,250 mg Lactulose (Lactulose Syrup 10 Gm/15 Ml Btl 960 Ml) 10 gm PO Q8H PRN PRN Reason: if no bowel movement in 3 days Stop: 05/01/25 18:29 Last Admin: 04/04/25 10:00 Dose: 10 gm Magnesium Hydroxide (Magnesium Hydroxide Susp 30 Ml Udc) 30 ml PO Q12H PRN PRN Reason: Constipation Stop: 05/01/25 18:26 Last Admin: 04/03/25 10:38 Dose: 30 ml Miscellaneous (Order Awaiting Action Estradiol 0.01 % (0.1 Mg/Gram) Cream) 1 each N/A QS [facility] Stop: 05/02/25 00:00 Last Admin: 04/04/25 08:22 Dose: Not Given Miscellaneous (Fentanyl Patch Remove & Waste) 1 each N/A Q3D [facility] Stop: 05/02/25 14:58 Last Admin: 04/02/25 15:27 Dose: 1 each Miscellaneous (Check Fentanyl Patch Placement) 1 each N/A QS [facility] Stop: 05/02/25 00:00 Last Admin: 04/04/25 08:22 Dose: 1 each Miscellaneous (Order Awaiting Action Progesterone Micronized 100 Mg Capsule) 1 each N/A QS [facility] Stop: 05/02/25 00:00 Last Admin: 04/04/25 08:22 Dose: Not Given Miscellaneous Information (Vancomycin Consult Active) 1 each N/A UD PRN PRN Reason: Consult Stop: 05/04/25 12:08 Ondansetron HCl (Ondansetron Inj 2 Mg/Ml 2 Ml Vial) 4 mg IV Q6H PRN PRN Reason: Nausea Stop: 05/01/25 18:26 Last Admin: 04/02/25 07:27 Dose: 4 mg Oxybutynin Chloride (Oxybutynin Chloride 5 Mg Tab) 5 mg PO DAILY [facility] Stop: 05/02/25 08:59 Last Admin: 04/04/25 08:21 Dose: 5 mg Polyethylene Glycol (Polyethylene (Miralax) 17 Gm Pack) 17 gm PO DAILY PRN PRN Reason: Constipation Stop: 05/01/25 18:26 Sennosides (Senna 8.6 Mg Tab) 17.2 mg PO HS [facility] Stop: 05/01/25 20:59 Last Admin: 04/03/25 20:26 Dose: 17.2 mg Tamsulosin HCl (Tamsulosin Hcl 0.4 Mg Cap) 0.4 mg PO QAM [facility] Stop: 05/02/25 08:59 Last Admin: 04/04/25 08:21 Dose: 0.4 mg
[2025-04-04] MEDS ORDERED: VANCOMYCIN CONSULT ACTIVE PRN (12:09)
[2025-04-04] MEDS: VANCOMYCIN HCL / NSS 1,000 MG/270 ML BAG IV ONE (12:44)
[2025-04-04] MEDS: POLYETHYLENE (MIRALAX) 17 GM PACK PO SCH (14:26)
--- NOTE | 2025-04-04 15:00 | Pharmacy Report ---
Pharmacy PK ABX Note - Date of Service April 04, 2025 - Assessment and Plan Assessment 45 year old F receiving vancomycin for treatment of a corynebacterium UTI. Patient previously on ceftriaxone with worsening left flank pain and burning with passing urine x 3 days. Urine culture was + for Corynebacterium amycolatam and antibiotic was changed to vancomycin to cover. ID has been consulted Day # 1 of vancomycin therapy. Plan Vancomycin * Loading dose: 1000 mg IV x 1 * Maintenance dose: 750 mg IV every 12 hours * Regimen is predicted to achieve target AUC/CURT of 400-600 mg/L.hr * Random level ordered for: 04/05 at 1300. Pharmacy will continue to follow and will adjust dose/frequency as necessary. Thank you. Pharmacy has transitioned to AUC monitoring for vancomycin. AUC/CURT is the preferred PK/PD target and is associated with decreased risk of nephrotoxicity compared to traditional trough targets. 4
[2025-04-04] MEDS: VANCOMYCIN 750 MG in SODIUM CHLORIDE 0.9% 250 ML IV SCH (19:36)
[2025-04-04] MEDS: ACETAMINOPHEN 325 MG TAB PO PRN (22:55)
[2025-04-05 06:34] LABS: Hematocrit (blood only) 28.0 % (37.0-47.0); Hemoglobin 9.1 g/dl (12.0-16.0); Mean Corpuscular Hemoglobin 28.4 pg (25.0-34.0); Mean Corpuscular Volume 87.5 fL (80.0-100.0); Platelet Count 229 K/uL (130-400); RDW Standard Deviation 46.0 fL (36.4-46.3); Red Blood Count 3.20 M/uL (4.20-5.40); White Blood Count 6.58 K/ul (4.8-10.8)
[2025-04-05 07:09] LABS: Anion Gap 7.0 (3-11); Blood Urea Nitrogen 5.0 mg/dl (6-23); Calcium 9.0 mg/dl (8.6-10.3); Carbon Dioxide 27.0 mmol/L (21-32); Chloride 99.0 mmol/L (98-107); Creatinine Clr Calc Pharmacy 86.8 ml/min; Glucose 103.0 mg/dl (70-99(Fasting)); Magnesium 1.6 mg/dl (1.7-2.4); Potassium 4.1 mmol/L (3.5-5.1); Sodium 133.0 mmol/L (136-145)
--- NOTE | 2025-04-05 07:53 | Hospitalist Progress Note ---
Date of Service April 05, 2025 Assessment & Plan (1) Hydronephrosis, left: (2) Cancer related pain: (3) Complicated UTI (urinary tract infection): Plan Patient comes in with worsening left flank pain, and worsening pain and burning with passing urine since last 3 days. Complicated UTI Worsening left-sided hydronephrosis H/O recurrent UTI infection after chemotherapy H/O left hydronephrosis secondary to invasive cervical cancer S/P left ureteral stent placement in August 2024 --CT ABD:Moderate hydronephrosis left kidney, increased in severity as compared to the most recent previous CT study of 03/06/2025. Continued presence of diffuse thickening of the wall of the urinary bladder. Centimeters in size and appearance of the retroperitoneal periaortic collection. 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 Chronic Anemia Monitor CBC Ongoing Tobacco Abuse: Declined Nicotine Patch Not Interested in Smoking Cessation DVT Px: Heparin SQ Code Status Full Code Disposition Expect to discharge home Admission and Anticipated Discharge Date Admission Date: April 03, 2025 Subjective Pt seen in follow up Hx of cervical cancer, also follows w/ urology, ureteral stent placed Reports bilateral flank pain and left lower abd. discomfort, also reports discomfort w/ urination - improved today after starting vanco yesterday No fevers, chills, chest pain, shortness of breath + constipation resolved, will continue w/ bowel regimen Contacted by pharmacy yesterday - concern that UTI is real, not a contaminant, abx switched to vancomycin, official ID consult placed and pending Review of Systems Review of Systems: All systems reviewed & are unremarkable except as noted in Subjective Physical Exam Physical Exam: General Appearance:Thin, frail, no apparent distress Head: normocephalic, Atraumatic Eyes: normal inspection, EOMI Neck: supple Respiratory/Chest: Normal breath sounds, CTA, No accessory muscle use Cardiovascular: S1, S2, No murmur Abdomen/GI: Soft, mild flank tender, Bowel sounds present Extremities/Musculoskeletal: normal inspection, no edema Neurologic/Psych: awake,alert, answers appropriately, speech fluent, moves extremities Skin: normal color, warm Results & Data Results & Data Vital Signs (Past 12 Hours) Vital Signs Temp Pulse Pulse Resp BP Pulse Ox O2 Del Method 04/05/25 04:00 36.9 C 65 18 124/73 95 Room Air 04/04/25 23:00 37.0 C 85 18 109/69 96 Room Air 04/04/25 22:19 62 Laboratory Results 04/05/25 04/04/25 Range/Units 06:14 05:43 WBC 6.58 7.34 (4.8-10.8) K/ul RBC 3.20 L 3.05 L (4.20-5.40) M/uL Hgb 9.1 L 9.0 L (12.0-16.0) g/dl Hct 28.0 L 26.8 L (37.0-47.0) % MCV 87.5 87.9 (80.0-100.0) fL MCH 28.4 29.5 (25.0-34.0) pg MCHC 32.5 33.6 (32.0-36.0) g/dL RDW Std Deviation 46.0 45.9 (36.4-46.3) fL RDW Coeff of Efr 14.4 14.3 (11.5-14.5) % Plt Count 229 236 (130-400) K/uL MPV 10.9 11.7 (9.4-12.4) fL Sodium 133 L 133 L (136-145) mmol/L Potassium 4.1 4.1 (3.5-5.1) mmol/L Chloride 99 99 (98-107) mmol/L Carbon Dioxide 27 28 (21-32) mmol/L Anion Gap 7 6 (3-11) BUN 5 L 6 (6-23) mg/dl Creatinine 0.54 L 0.59 L (0.6-1.2) mg/dl Est Cr Clr Drug Dosing 86.8 79.8 ml/min eGFR 115.63 113.19 BUN/Creatinine Ratio 9.3 L 10.2 (10-20) Glucose 103 H 93 (70-99(Fasting)) mg/dl Calcium 9.0 9.0 (8.6-10.3) mg/dl Phosphorus 3.7 (2.5-4.9) mg/dl Magnesium 1.6 L (1.7-2.4) mg/dl Medications Administered Current Inpatient Medications Acetaminophen (Acetaminophen 325 Mg Tab) 650 mg PO Q4H PRN PRN Reason: Pain or Fever Stop: 05/01/25 18:26 Last Admin: 04/05/25 05:17 Dose: 650 mg Al Hydrox/Mg Hydrox/Simethicone (Aluminum/Magnesium Susp 30 Ml Udc) 15 ml PO Q4H PRN PRN Reason: Dyspepsia Stop: 05/01/25 18:26 Last Admin: 04/03/25 17:19 Dose: 15 ml Bisacodyl (Bisacodyl 5 Mg Tabec) 5 mg PO DAILY PRN PRN Reason: Constipation Stop: 05/02/25 11:21 Duloxetine HCl (Duloxetine Hcl 30 Mg Cap) 30 mg PO QAM [facility] Stop: 05/02/25 08:59 Last Admin: 04/04/25 08:21 Dose: 30 mg Fentanyl (Fentanyl 75 Mcg/Hr Tdsy) 1 patch TD Q72H [facility] Stop: 04/16/25 14:59 Last Admin: 04/02/25 15:27 Dose: 1 patch Heparin Sodium (Porcine) (Heparin Sod 5,000 Unit/0.5 Ml Vial) 5,000 units SQ Q12 [facility] Stop: 05/01/25 20:59 Last Admin: 04/04/25 21:00 Dose: 5,000 units Hydromorphone HCl (Hydromorphone Hcl 2 Mg Tab) 4 mg PO Q6H PRN PRN Reason: Q6-8HR PRNPain Stop: 04/15/25 18:29 Last Admin: 04/05/25 03:26 Dose: 4 mg Hydromorphone HCl (Hydromorphone Inj 0.5 Mg/0.5 Ml Syr) 0.5 mg IV Q4H PRN PRN Reason: Severe Pain (Scale 7, 8, 9,10) Stop: 04/15/25 18:31 Last Admin: 04/03/25 20:25 Dose: 0.5 mg Vancomycin HCl 750 mg/ Sodium (Chloride) 265 mls @ 200 mls/hr IV Q12H [facility] Stop: 04/14/25 19:59 Last Infusion: 04/04/25 21:09 Dose: Infused Magnesium Sulfate/Dextrose (Magnesium Sulfate / D5w) 1 gm in 100 mls @ 50 mls/hr IV ONE ONE Stop: 04/05/25 09:50 Lactobacillus Acidophilus (Advanced Probiotic 625 Mg Capsule) 1,250 mg PO DAILY [facility] Stop: 05/02/25 08:59 Last Admin: 04/04/25 08:21 Dose: 1,250 mg Lactulose (Lactulose Syrup 10 Gm/15 Ml Btl 960 Ml) 10 gm PO Q8H PRN PRN Reason: if no bowel movement in 3 days Stop: 05/01/25 18:29 Last Admin: 04/04/25 10:00 Dose: 10 gm Magnesium Hydroxide (Magnesium Hydroxide Susp 30 Ml Udc) 30 ml PO Q12H PRN PRN Reason: Constipation Stop: 05/01/25 18:26 Last Admin: 04/03/25 10:38 Dose: 30 ml Magnesium Oxide (Magnesium Oxide 400 Mg Tab) 400 mg PO BID [facility] Stop: 05/05/25 08:59 Miscellaneous (Order Awaiting Action Estradiol 0.01 % (0.1 Mg/Gram) Cream) 1 each N/A QS [facility] Stop: 05/02/25 00:00 Last Admin: 04/04/25 23:56 Dose: Not Given Miscellaneous (Fentanyl Patch Remove & Waste) 1 each N/A Q3D [facility] Stop: 05/02/25 14:58 Last Admin: 04/02/25 15:27 Dose: 1 each Miscellaneous (Check Fentanyl Patch Placement) 1 each N/A QS [facility] Stop: 05/02/25 00:00 Last Admin: 04/04/25 23:56 Dose: 1 each Miscellaneous (Order Awaiting Action Progesterone Micronized 100 Mg Capsule) 1 each N/A QS [facility] Stop: 05/02/25 00:00 Last Admin: 04/04/25 23:56 Dose: Not Given Miscellaneous Information (Vancomycin Consult Active) 1 each N/A UD PRN PRN Reason: Consult Stop: 05/04/25 12:08 Ondansetron HCl (Ondansetron Inj 2 Mg/Ml 2 Ml Vial) 4 mg IV Q6H PRN PRN Reason: Nausea Stop: 05/01/25 18:26 Last Admin: 04/02/25 07:27 Dose: 4 mg Oxybutynin Chloride (Oxybutynin Chloride 5 Mg Tab) 5 mg PO DAILY [facility] Stop: 05/02/25 08:59 Last Admin: 04/04/25 08:21 Dose: 5 mg Polyethylene Glycol (Polyethylene (Miralax) 17 Gm Pack) 17 gm PO DAILY [facility] Stop: 05/04/25 14:14 Last Admin: 04/04/25 14:26 Dose: 17 gm Sennosides (Senna 8.6 Mg Tab) 17.2 mg PO HS [facility] Stop: 05/01/25 20:59 Last Admin: 04/04/25 21:00 Dose: 17.2 mg Tamsulosin HCl (Tamsulosin Hcl 0.4 Mg Cap) 0.4 mg PO QAM [facility] Stop: 05/02/25 08:59 Last Admin: 04/04/25 08:21 Dose: 0.4 mg
[2025-04-05] MEDS: MAGNESIUM OXIDE 400 MG TAB PO SCH (08:16)
[2025-04-05] MEDS: MAGNESIUM SULFATE / D5W 1 GM/100 ML BAG IV ONE (08:18)
--- NOTE | 2025-04-05 10:56 | Pharmacy Report ---
Pharmacy PK ABX Note - Date of Service April 05, 2025 - Assessment and Plan Assessment 04/05: Renal function improved, will increase vancomycin dose to ensure therapeutic levels. Day #2 Vancomycin. 04/04: 45 year old F receiving vancomycin for treatment of a corynebacterium UTI. Patient previously on ceftriaxone with worsening left flank pain and burning with passing urine x 3 days. Urine culture was + for Corynebacterium amycolatam and antibiotic was changed to vancomycin to cover. ID has been consulted Day # 1 of vancomycin therapy. Plan Vancomycin * Loading dose: 1000 mg IV x 1 * Maintenance dose: 750 mg IV every 12 hours --> INCREASE to 1000mg IV Q12H today at 1800 * Regimen is predicted to achieve target AUC/CURT of 400-600 mg/L.hr * Trough level ordered for: 04/06 @ 0530 Pharmacy will continue to follow and will adjust dose/frequency as necessary. Thank you. Pharmacy has transitioned to AUC monitoring for vancomycin. AUC/CURT is the preferred PK/PD target and is associated with decreased risk of nephrotoxicity compared to traditional trough targets.
--- NOTE | 2025-04-05 13:55 | Infectious Disease Consult ---
Date of Service April 05, 2025 Telehealth Information I performed this visit using a real-time telehealth connection between my location and the patients location ([facility]). After connecting through interactive tele-video, patient was identified by name and date of and/or wristband check.Patient (or authorized healthcare c s s representative) was informed that this was a telemedicine visit and it was being conducted confidentially over secure lines. My office door was closed and no one else was present in the room with me.Patient (or authorized healthcare c s s representative) provided consent to proceed with the visit, expressed an understanding of privacy and security of the telemedicine visit, and gave permission to have a hospital c s s representative in the room in order to assist with the visit and to conduct portions of the visit, as needed. I informed the patient (or authorized healthcare c s s representative) that I reviewed their record and presented the opportunity for them to ask any questions regarding the visit today. The patient agreed to participate. Assessment & Plan (1) Complicated UTI (urinary tract infection): (2) Obstructive nephropathy: (3) Ureteral stent present: (4) Squamous cell carcinoma of cervix: Plan Corynebacterium is rather a skin colonizer and less likely to cause urinary tract infection. However, since the patient is having worsening dysuria, I would recommend treating it at this point. Continue on IV vancomycin while inpatient. On discharge, step-down to oral linezolid 600 mg twice daily to complete a course of 10 days including inpatient vancomycin days. Thank you for consulting Infectious Disease. We will sign off for now. History of Present Illness History of Present Illness Ms. Farrell is a 45-year-old woman with past medical history of squamous cell carcinoma of the cervix status post radiation and currently on pembrolizumab, history of obstructive nephropathy with bilateral hydronephrosis status post ureteral stenting, and recurrent UTIs who was admitted to [facility] because of dysuria and left flank pain for around 3 days prior to presentation. On presentation, she was afebrile and all of the vitals were within normal limits. Initial workup showed no leukocytosis, hemoglobin of 9.9, no electrolyte abnormalities, and UA with more than 50 WBCs and 1+ bacteriuria. Urine culture grew Corynebacterium amycolatum. ID team was consulted for further recommendations and to help guide antibiotic treatment. Allergies Allergy/AdvReac Type Severity Reaction Status Date / Time No Known Allergies Allergy Verified 04/01/25 15:12 Home Medications Medication Instructions Recorded Confirmed Type hydromorphone 4 mg tablet 4 mg PO .Q6-8H PRN Pain 10/02/24 04/01/25 History estradiol 0.01% (0.1 mg/gram) 1 applic vaginal [id number] 02/24/25 04/01/25 History vaginal cream progesterone micronized 100 mg 100 mg PO QAM 02/24/25 04/01/25 History capsule lactobacillus combination no.4 3 3,000 mmu cells PO DAILY 03/06/25 04/01/25 History billion cell capsule (Probiotic) magnesium citrate 100 mg capsule 100 mg PO DAILY 03/06/25 04/01/25 History sennosides 8.6 mg tablet (senna) 17.2 mg PO HS 03/06/25 04/01/25 History phenazopyridine 100 mg tablet 100 mg PO TID PRN dysuria #10 tabs 03/09/25 04/01/25 Rx (Pyridium) duloxetine 30 mg capsule,delayed 30 mg PO QAM 04/01/25 04/01/25 History release fentanyl 75 mcg/hr transdermal 75 mcg transdermal Q72H 04/01/25 04/01/25 History patch lactulose 10 gram/15 mL oral 15 ml PO Q8H PRN if no bowel 04/01/25 04/01/25 History solution (Constulose) movement in 3 days oxybutynin chloride 5 mg tablet 5 mg PO DAILY 04/01/25 04/01/25 History tamsulosin 0.4 mg capsule 0.4 mg PO QAM 04/01/25 04/01/25 History Patient History Medical History Severe protein-calorie malnutrition Tobacco use Neoplasm causing mass effect on adjacent structures Hyponatremia Hydronephrosis Pelvic mass Surgical History Status post cystoscopy with ureteral stent placement Status post colposcopy History of knee surgery Removal of Spaulding's cyst - right Family History Mother No problems noted. Father , 42yo Cerebral aneurysm S/p nephrectomy Brother No problems noted. Brother No problems noted. Sister Twin Pts twin sister Son No problems noted. Daughter No problems noted. 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 Physical Exam Could not be performed as the visit was conducted via TeleMed. Results & Data Vital Signs (Past 12 Hours) Vital Signs Temp Pulse Pulse Resp BP Pulse Ox O2 Del Method 04/05/25 11:28 36.9 C 67 17 121/73 97 Room Air 04/05/25 08:07 37.0 C 64 16 115/69 98 Room Air 04/05/25 05:55 49 L 04/05/25 04:00 36.9 C 65 18 124/73 95 Room Air Laboratory Results Microbiology: 04/01: Urine culture growing corynebacterium amycolatum Diagnostic Findings CT abdomen and pelvis on 04/01: 1. Moderate hydronephrosis left kidney, increased in severity as compared to the most recent previous CT study of 03/06/2025. 2. Continued presence of diffuse thickening of the wall of the urinary bladder. 3. Centimeters in size and appearance of the retroperitoneal periaortic collection.
[2025-04-05] MEDS: VANCOMYCIN HCL / NSS 1,000 MG/270 ML BAG IV SCH (17:59)
[2025-04-06] MEDS: VANCOMYCIN LEVEL ONE (06:03)
[2025-04-06 06:11] LABS: Hematocrit (blood only) 29.1 % (37.0-47.0); Hemoglobin 10.0 g/dl (12.0-16.0); Mean Corpuscular Hemoglobin 29.6 pg (25.0-34.0); Mean Corpuscular Volume 86.1 fL (80.0-100.0); Platelet Count 240 K/uL (130-400); RDW Standard Deviation 45.3 fL (36.4-46.3); Red Blood Count 3.38 M/uL (4.20-5.40); White Blood Count 7.73 K/ul (4.8-10.8)
[2025-04-06 06:32] LABS: Anion Gap 7.0 (3-11); Blood Urea Nitrogen 5.0 mg/dl (6-23); Calcium 9.2 mg/dl (8.6-10.3); Carbon Dioxide 28.0 mmol/L (21-32); Chloride 98.0 mmol/L (98-107); Creatinine Clr Calc Pharmacy 79.4 ml/min; Glucose 104.0 mg/dl (70-99(Fasting)); Magnesium 1.9 mg/dl (1.7-2.4); Potassium 4.0 mmol/L (3.5-5.1); Sodium 133.0 mmol/L (136-145)
[2025-04-06 08:42] VITALS: BP 105/65; RESP 17; TEMP 97.3; O2SAT 96
--- NOTE | 2025-04-06 09:04 | Discharge Summary ---
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 Patient reports worsening left flank pain and pain and burning with passing urine since 3 days, denies fever, reports starting to feel right flank pain today. No CVA angle tenderness on exam. Patient reports constipation at baseline. Patient denies sore throat/cough/chest pain/vomiting. Patient reports chronic low back pain. Patient reports nausea. She reports her last chemotherapy was on last Wednesday about 4 days ago [employer]. Patient reports smoking half packs a day, denies nicotine patch. Denies alcohol and recreational drug use. Medications reviewed with the patient at bedside. Plan of care discussed with the patient and her at bedside, who voiced understanding. Full code Admission Exam Per Admitting Provider GENERAL: Alert and oriented x3. NAD, on RA. Appears older than stated age, chronically ill, frail, weak. Appears cachectic. HEENT: No pallor, no icterus. Pupils equal, round and reactive to light. Oral mucosa dry. NECK: No JVD, no neck masses. HEART: S1 and S2 heard. Regular rate and rhythm. No murmur, no gallop. RESPIRATORY SYSTEM: Normal AP diameter. No accessory muscle use. No wheezing, no crackles. ABDOMEN: Soft, bowel sounds present, Lower abdominal tenderness mild, no distention. No bilateral CVA angle tenderness CENTRAL NERVOUS SYSTEM: No facial droop. Speech is clear. Obeys simple commands. Moves extremities. EXTREMITIES: No edema, no erythema seen. Principal Diagnosis Complicated UTI (urinary tract infection): Obstructive nephropathy: Ureteral stent present: Squamous cell carcinoma of cervix: Discharge Exam General Appearance:Thin adult F in NAD Head: normocephalic, Atraumatic Eyes: normal inspection, EOMI Neck: supple Respiratory/Chest: Normal breath sounds, CTA, No accessory muscle use Cardiovascular: S1, S2, No murmur Abdomen/GI: Soft, mild flank tender, Bowel sounds present Extremities/Musculoskeletal: normal inspection, no edema Neurologic/Psych: awake,alert, answers appropriately, speech fluent, moves extremities Skin: normal color, warm Discharge Data Allergies Allergy/AdvReac Type Severity Reaction Status Date / Time No Known Allergies Allergy Verified 04/01/25 15:12 Consultations 04/01/25 18:00 ED Decision to Admit Stat 04/01/25 18:25 Consult Urology Routine 04/04/25 12:01 Consult Infectious Diseases Routine Ordered Studies 04/01/25 14:00 CT abd pelvis IV con only Stat FINDINGS: The lower lung zones are clear. Liver, pancreas and spleen remain unremarkable. Adrenal glands are unremarkable. Right kidney unremarkable. Left ureteral stent remains present with the upper loop in the renal pelvis. There is moderately increased in degree of hydronephrosis as compared to the most recent previous study of 03/06/2025. The distal loop of the left ureteral catheter remains present in the urinary bladder. The urinary bladder itself is not distended although there is diffuse wall thickening. The retroperitoneal/periaortic collection in the in the upper abdomen narrowing remains present and is stable. No contrast leakage or direct extravasation is seen at this time. No free fluid is seen. No evidence of bowel obstruction or free air is seen. IMPRESSION: 1. Moderate hydronephrosis left kidney, increased in severity as compared to the most recent previous CT study of 03/06/2025. 2. Continued presence of diffuse thickening of the wall of the urinary bladder. 3. Centimeters in size and appearance of the retroperitoneal periaortic collection. Hospital Course (1) Hydronephrosis, left: (2) Cancer related pain: (3) Complicated UTI (urinary tract infection): Plan Patient comes in with worsening left flank pain, and worsening pain and burning with passing urine since last 3 days. Complicated UTI Worsening left-sided hydronephrosis H/O recurrent UTI infection after chemotherapy H/O left hydronephrosis secondary to invasive cervical cancer S/P left ureteral stent placement in August 2024 --CT ABD:Moderate hydronephrosis left kidney, increased in severity as compared to the most recent previous CT study of 03/06/2025. Continued presence of diffuse thickening of the wall of the urinary bladder. Centimeters in size and appearance of the retroperitoneal periaortic collection. 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 Chronic Anemia Monitor CBC Ongoing Tobacco Abuse: Declined Nicotine Patch Not Interested in Smoking Cessation Total Time Total Time Spent Total Time Spent (In Minutes): 40 Discharge Plan Discharge Items Patient Disposition: Home - Self-Care Reason For Visit: LEFT FLANK PAIN Discharge Diagnosis: Complicated UTI (urinary tract infection): Obstructive nephropathy: Ureteral stent present: Squamous cell carcinoma of cervix: Condition on Discharge: Fair Activity: Per Instructions section Non-emergency contact: Primary Care Provider, Specialist, Oncologist and Urologist Call non-emergency contact if: you have any medication questions and your symptoms worsen Follow-up/Referrals: Dorinda Whelan MD [Primary Care Provider] - (Date & Time 04/10/2025 9:00 AM Provider: Dorinda Mckenna MD Family Medicine [facility] ) Diet: Regular Addtl Attending Provider Instructions: Follow up with primary care physician , urologist, oncologist. The appointment with your primary care physician was scheduled for you for 04/10/2025. Finish antibiotic treatment (linezolid), as prescribed. Pending Studies at Discharge: No Stand-Alone Forms: My [employer] Smoking Cessation Medications and DC Order Prescriptions: New linezolid 600 mg tablet 600 mg PO BID 8 Days Qty: 16 0RF Continued hydromorphone 4 mg tablet 4 mg PO .Q6-8H PRN (Reason: Pain) Probiotic 3 billion cell Capsule 3,000 mmu cells PO DAILY Rx Instructions: administer with a meal sennosides [senna] 8.6 mg tablet 17.2 mg PO HS magnesium citrate 100 mg Capsule 100 mg PO DAILY phenazopyridine [Pyridium] 100 mg Tablet 100 mg PO TID PRN (Reason: dysuria) Qty: 10 0RF fentanyl 75 mcg/hr patch 72 hour 75 mcg transdermal Q72H Rx Instructions: placed Wednesday03/30/2025 duloxetine 30 mg capsule,delayed release(DR/EC) 30 mg PO QAM lactulose [Constulose] 10 gram/15 mL solution 15 ml PO Q8H PRN (Reason: if no bowel movement in 3 days) tamsulosin 0.4 mg capsule 0.4 mg PO QAM oxybutynin chloride 5 mg tablet 5 mg PO DAILY estradiol 0.01 % (0.1 mg/gram) cream 1 applic VAGINAL [id number] Rx Instructions: Wed/Wed/Wed progesterone micronized 100 mg capsule 100 mg PO QAM Discharge Orders: Discharge Order (Routine); Ordered 04/06/25 Ordered By: Juliano Vanegas Admission Data Admit Date/Time: 04/03/25 10:50 Attending Provider: Juliano Vanegas Admit Provider: Kevan Faria Primary Care Provider: Dorinda Whelan Other Providers: Kevan Faria; Maverick Frazier; Sharan Burnett; Alicia Thompson
[2025-04-06 12:49] VITALS: PULSE 59
[2025-04-06] MEDS: HEPARIN 100 UNIT/ML 5ML FLUSH FLUSH STA (12:56)
[2025-04-06] MEDS ORDERED: VANCOMYCIN 750 MG in SODIUM CHLORIDE 0.9% 250 ML IV SCH (20:00)
== END 2025-04-06 13:50 | disposition home or self-care (01) | DRG 689 ==
LOC: ED 13:41 → 2N 13:41 → SUATTDRO 18:27 → 2N 21:24 → SUATTDRO 04-03 10:50
DX: Z96.0 Presence of urogenital implants; E87.1 Hypo-osmolality and hyponatremia; K59.00 Constipation, unspecified; D64.9 Anemia, unspecified; F17.210 Nicotine dependence, cigarettes, uncomplicated; C53.9 Malignant neoplasm of cervix uteri, unspecified; G89.3 Neoplasm related pain (acute) (chronic); N13.8 Other obstructive and reflux uropathy; N13.6 Pyonephrosis; Z87.440 Personal history of urinary (tract) infections; E43 Unspecified severe protein-calorie malnutrition; Z79.891 Long term (current) use of opiate analgesic

== ENCOUNTER 2025-05-15 11:03 | Inpatient (IN) ==
--- NOTE | 2025-05-15 11:24 | Emergency Department Note ---
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 Reports that all of this began 2 weeks ago. She was evaluated by her primary care provider where an x-ray of the bilateral hips was obtained with no abnormality. Patient denies any known trauma or injury. She reports she is currently getting chemotherapy every 6 weeks for cervical cancer. Her last chemotherapy session was 1 week ago. She also noticed blood in her urine this morning, is experiencing burning with urination, urgency, and frequency. She does report a history of UTIs after chemotherapy. She had a stent placed on the left side by Dr. Bond with plans to remove it in July. Denies fever, nausea or vomiting, chest pain, shortness of breath, abdominal pain, flank pain, calf or lower leg pain, recent travel. Patient does report taking hormone therapy that was started by her oncologist for hot flashes. No history of blood clots. REVIEW OF SYSTEMS: See HPI for pertinent positives and pertinent negatives. ALLERGIES: NKDA MEDICATIONS: See below PAST MEDICAL HISTORY: See below PHYSICAL EXAM: VITALS: Vitals are noted on the nurses note and reviewed by myself. Vital signs stable. GENERAL: 45-year-old female, in obvious discomfort, in no acute distress, nondiaphoretic, well-developed well-nourished. SKIN: Capillary refill less than 2 seconds. HEENT: Normocephalic. PERRLA. EOMI. Nares patent. Mucous membranes moist. Neck is supple without nuchal rigidity. HEART: Regular rate and rhythm without murmurs gallops or rubs. LUNGS: CTA BL without wheezes, rales or rhonchi. No retractions or accessory muscle use. ABDOMEN: Positive BS x 4. Soft, tenderness in the suprapubic region, other abdominal quadrants nontender, no obvious masses. No guarding or rebound tenderness. MUSCULOSKELETAL: FROM BL hips and lower extremities. Mild tenderness upon palpation to the lateral aspects of the bilateral hips. Left thigh is larger than the right. The area is mildy tender to touch. No warmth. No erythema. No pedal edema. No calf tenderness. NEURO: Patient was alert and oriented to person place and time. No focal neurological deficits. DIFFERENTIAL DIAGNOSIS: UTI, pyelonephritis, sepsis, lymphedema, cellulitis, abscess, injury or trauma, malignancy, back pain, among others. ED COURSE AND MEDICAL DECISION MAKING: HISTORY FROM INDEPENDENT HISTORIAN: The patient herself. MEDICATIONS GIVEN: Tylenol 1000 mg IV, morphine 2 mg IV, Zofran 4 mg IV INTERPRETATION OF LABS: I interpreted the labs with full lab results as below in the lab section of this note. Pertinent lab results discussed in the MDM section below. INTERPRETATION OF IMAGING: Imaging studies were interpreted by myself and read by radiology as per the imaging section of this note. US lower extremity left - No DVT. CT abdomen pelvis - 1. 10 x 4 x 3 cm hypodense mass encasing the abdominal aorta and proximal iliac vessels. Given history of cervical carcinoma this may represent a necrotic lymph node mass. Other etiologies not excluded with certainty 2. Effacement of the common iliac veins bilaterally. These may be thrombosed. 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 The infrarenal IVC appears occluded. The suprarenal IVC appears patent. Multiple venous collaterals are visualized likely secondary to the IVC occlusion. 3. Indwelling left-sided nephroureteral stent. Resolution of previously described left-sided hydronephrosis. 4. Diffuse bladder wall thickening 5. No evidence of bowel obstruction. Fecal retention with a cecum measuring [address] left hip/femur - Diffuse subcutaneous edema. No discrete fluid collection or soft tissue mass. No osseous abnormality. Nonspecific left inguinal lymphadenopathy. ESCALATION OF CARE CONSIDERED: Escalation of care considered as the patient has a history of a cervical cancer and is now presenting with left hip, thigh, and suprapubic swelling. A full workup was completed showing CONSULTATIONS: On-call [facility] Hospitalist - Presented the patient to the provider. Discussed metastatic cervical cancer findings. Patient is stable and pain controlled currently. They agreed to evaluating the patient for admission. MDM SUMMARY: I evaluated the 45-year-old female who presents to the ER due to swelling of her bilateral hips, left thigh, and left side of suprapubic/vaginal area that has been ongoing for weeks now but has now worsened. She also has concerns for UTI. See HPI and PE above. Patient mildly tachycardic with a rate of 103. Tylenol initially given for symptom management. Labs obtained showing no leukocytosis. Anemia. Hemoglobin hematocrit 9.3/29.2. This is consistent with the patient's previous levels. Hyponatremia 131. No other electrolyte abnormality. No GLENN. Urinalysis obtained showing 3+ protein, 1+ ketone, 3+ blood, positive nitrates. Consistent with UTI. Urinalysis was pending upon admission. Ultrasound left lower extremity shows no DVT. Additional CT imaging obtained of the left hip and femur showing subcutaneous edema. No other abnormality. CT abdomen pelvis shows metastatic cervical cancer and thrombus in the IVC. All laboratory and imaging results were reviewed with the patient. Additionally morphine and Zofran given for symptom management. A consultation with the on-call [facility] hospitalist can be seen in detail above. The patient is agreeable to admission and all questions answered. The patient was admitted in stable condition. DIAGNOSIS: This is from cervical cancer, IVC thrombosis The chart was completed utilizing [employer] Speech voice recognition software. Grammatical errors, random word insertions, pronoun errors, and incomplete sentences are an occasional consequence of this system due to software limitations, ambient noise, and hardware issues. Any formal questions or concerns about the content, text, or information contained within the body of this dictation should be directly addressed to the provider for clarification. 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 (Acute) Goals of care, counseling/discussion Metastasis from cervical cancer Obstructive nephropathy Anemia (Acute) Hydronephrosis, left (Acute) Cancer related pain (Acute) Complicated UTI (urinary tract infection) (Acute) Squamous cell carcinoma of cervix (Acute 07/25/24) Ureteral stent present (Acute) Medical History Severe protein-calorie malnutrition Tobacco use Neoplasm causing mass effect on adjacent structures Hyponatremia Hydronephrosis Pelvic mass Surgical History Status post cystoscopy with ureteral stent placement Status post colposcopy History of knee surgery Removal of Spaulding's cyst - right Family History Mother No problems noted. Father , 42yo Cerebral aneurysm S/p nephrectomy Brother No problems noted. Brother No problems noted. Sister Twin Pts twin sister Son No problems noted. Daughter No problems noted. 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 How many Children do You have: 2 Other Information That Helps Us Care for You: No Feels Safe at Home: Yes Safety Concerns: Feels Safe At This Time Diet: regular caffeine: No during the past year weight has: decreased > 10 lbs Assistive Devices: None Allergies Allergies Allergy/AdvReac Type Severity Reaction Status Date / Time No Known Allergies Allergy Verified 05/15/25 15:00 Home Meds Home Medications Medication Instructions Recorded Confirmed hydromorphone 4 mg tablet 4 mg PO .Q6-8H PRN Pain 10/02/24 05/15/25 estradiol 0.01% (0.1 mg/gram) 1 applic vaginal 3XWK 02/24/25 05/15/25 vaginal cream progesterone micronized 100 mg 100 mg PO QAM 02/24/25 05/15/25 capsule lactobacillus combination no.4 3 3,000 mmu cells PO DAILY 03/06/25 05/15/25 billion cell capsule (Probiotic) magnesium citrate 100 mg capsule 100 mg PO DAILY 03/06/25 05/15/25 sennosides 8.6 mg tablet (senna) 17.2 mg PO HS 03/06/25 05/15/25 fentanyl 75 mcg/hr transdermal 75 mcg transdermal Q72H 04/01/25 05/15/25 patch lactulose 10 gram/15 mL oral 15 ml PO Q8H PRN if no bowel 04/01/25 05/15/25 solution (Constulose) movement in 3 days oxybutynin chloride 5 mg tablet 5 mg PO DAILY 04/01/25 05/15/25 tamsulosin 0.4 mg capsule 0.4 mg PO QAM 04/01/25 05/15/25 desvenlafaxine succinate 25 mg 25 mg PO QAM 05/15/25 05/15/25 tablet,extended release 24 hr melatonin 3 mg disintegrating 3 mg PO HS 05/15/25 05/15/25 tablet meloxicam 15 mg tablet 15 mg PO QAM 05/15/25 05/15/25 sulfamethoxazole 400 1 tab PO QAM 05/15/25 05/15/25 mg-trimethoprim 80 mg tablet Previous Rx's Medication Instructions Recorded phenazopyridine 100 mg tablet 100 mg PO TID PRN dysuria #10 tabs 03/09/25 (Pyridium) Results & Data (ED) Vital Signs Vital Signs - 24 hr 05/15/25 13:33 Pulse Rate [Apical] 76 Pulse Rhythm [Apical] Regular Respiratory Rate 20 Respiratory Effort / Characteristics Non-Labored Spontaneous Respiratory Depth Normal Respiratory Pattern Regular Blood Pressure [Right Arm] 121/79 Blood Pressure Mean [Right Arm] 93 Pulse Oximetry 98 Oxygen Delivery Method Room Air Laboratory Data 05/16/25 06:11 05/16/25 06:11 Lab Results 05/15/25 Range/Units 11:54 WBC 7.85 (4.8-10.8) K/ul RBC 3.06 L (4.20-5.40) M/uL Hgb 8.8 L (12.0-16.0) g/dl Hct 27.1 L (37.0-47.0) % MCV 88.6 (80.0-100.0) fL MCH 28.8 (25.0-34.0) pg MCHC 32.5 (32.0-36.0) g/dL RDW Std Deviation 50.7 H (36.4-46.3) fL RDW Coeff of Fer 15.6 H (11.5-14.5) % Plt Count 272 (130-400) K/uL MPV 10.2 (9.4-12.4) fL Immature Gran % (Auto) 0.3 % Neut % (Auto) 73.5 % Lymph % (Auto) 11.8 % [place] % (Auto) 10.7 % Eos % (Auto) 3.1 % Baso % (Auto) 0.6 % Neut # (Auto) 5.77 (1.40-6.50) K/uL Lymph # (Auto) 0.93 L (1.20-3.40) K/uL [place] # (Auto) 0.84 H (0.11-0.59) K/uL Eos # (Auto) 0.24 (0.00-0.50) K/uL Baso # (Auto) 0.05 (0.00-0.20) K/uL Immature Gran # (Auto) 0.02 (0.01-0.20) K/uL Sodium 133 L (136-145) mmol/L Potassium 4.3 (3.5-5.1) mmol/L Chloride 104 (98-107) mmol/L Carbon Dioxide 24 (21-32) mmol/L Anion Gap 5 (3-11) BUN 11 (6-23) mg/dl Creatinine 0.87 (0.6-1.2) mg/dl Est Cr Clr Drug Dosing 57.6 ml/min eGFR 83.68 BUN/Creatinine Ratio 12.6 (10-20) Glucose 86 (70-99(Fasting)) mg/dl Calcium 8.6 (8.6-10.3) mg/dl Total Bilirubin 0.2 (0.2-1.0) mg/dl AST 10 L (13-39) U/L ALT 5 L (7-52) U/L Alkaline Phosphatase 76 (34-104) U/L Total Protein 6.3 (6.0-8.3) gm/dl Albumin 3.2 L (3.4-5.0) gm/dl Globulin 3.1 (2.5-4.0) gm/dl Albumin/Globulin Ratio 1.0 (0.9-2) Lipase 5 L (11-82) U/L Administered Medications Enoxaparin Sodium (Enoxaparin Inj 40 Mg/0.4 Ml Syr) 40 mg SQ Q12H KENDRA Stop: 06/14/25 17:59 Last Admin: 05/16/25 05:35 Dose: 40 mg Documented By: asg Admin: 05/15/25 20:42 Dose: 40 mg Documented By: asg Fentanyl (Fentanyl 100 Mcg/Hr Tdsy) 1 patch TD Q3D KENDRA Stop: 05/30/25 10:29 Last Admin: 05/16/25 10:46 Dose: 1 patch Documented By: KD Hydromorphone HCl (Hydromorphone Inj 2 Mg/Ml Syr/Vial) 1.5 mg IV Q1H PRN PRN Reason: severe/breakthrough pain Stop: 05/30/25 10:23 Last Admin: 05/16/25 11:56 Dose: 1.5 mg Documented By: CAROLINA Melatonin (Melatonin 3 Mg Tab) 3 mg PO HS KENDRA Stop: 06/14/25 20:59 Last Admin: 05/15/25 20:45 Dose: 3 mg Documented By: cathi Miscellaneous (Desvenlafaxine Succinate 25 Mg Tablet Extended Release 24 Hr - Order Awaiting Action) 1 each N/A QS KENDRA Stop: 06/15/25 00:00 Last Admin: 05/16/25 07:31 Dose: Not Given Documented By: Admin: 05/16/25 00:31 Dose: Not Given Documented By: cathi Camachocellaneous (Estradiol 0.01 % Cream- Order Awaiting Action) 1 each N/A QS KENDRA Stop: 06/15/25 00:00 Last Admin: 05/16/25 07:32 Dose: Not Given Documented By: Admin: 05/16/25 00:31 Dose: Not Given Documented By: cathi Camachocellaneous (Progesterone Micronized 100 Mg - Order Awaiting Action) 1 each N/A QS KENDRA Stop: 06/15/25 00:00 Last Admin: 05/16/25 07:32 Dose: Not Given Documented By: Admin: 05/16/25 00:31 Dose: Not Given Documented By: cathi Miscellaneous (Fentanyl Patch Remove & Waste) 1 each N/A Q3D KENDRA Stop: 06/15/25 10:29 Last Admin: 05/16/25 10:45 Dose: 1 each Documented By: CAROLINA Co-signed By: SUNNY Oxybutynin Chloride (Oxybutynin Chloride 5 Mg Tab) 5 mg PO DAILY KENDRA Stop: 06/15/25 08:59 Last Admin: 05/16/25 07:48 Dose: 5 mg Documented By: CAROLINA Sennosides (Senna 8.6 Mg Tab) 17.2 mg PO HS KENDRA Stop: 06/14/25 20:59 Last Admin: 05/15/25 20:44 Dose: 17.2 mg Documented By: cathi Tamsulosin HCl (Tamsulosin Hcl 0.4 Mg Cap) 0.4 mg PO QAM KENDRA Stop: 06/15/25 08:59 Last Admin: 05/16/25 07:48 Dose: 0.4 mg Documented By: CAROLINA Discontinued Medications Fentanyl (Fentanyl 75 Mcg/Hr Tdsy) 1 patch TD Q72H KENDRA Stop: 05/29/25 16:14 Last Admin: 05/15/25 17:03 Dose: Not Given Documented By: ANT Hydromorphone HCl (Hydromorphone Hcl 2 Mg Tab) 4 mg PO Q4H PRN PRN Reason: Mod-Sev Pain (Scale 4-10) Stop: 05/29/25 18:14 Last Admin: 05/16/25 10:00 Dose: 4 mg Documented By: Admin: 05/15/25 22:29 Dose: 4 mg Documented By: cathi Admin: 05/15/25 18:40 Dose: 4 mg Documented By: CAROLINA Hydromorphone HCl (Hydromorphone Inj 0.5 Mg/0.5 Ml Syr) 0.25 mg IV Q4H PRN PRN Reason: Pain Stop: 05/29/25 23:33 Last Admin: 05/16/25 00:01 Dose: 0.25 mg Documented By: cathi Hydromorphone HCl (Hydromorphone Inj 0.5 Mg/0.5 Ml Syr) 0.5 mg IV Q4H PRN PRN Reason: Pain Stop: 05/29/25 23:33 Last Admin: 05/16/25 00:53 Dose: 0.5 mg Documented By: cathi Hydromorphone HCl (Hydromorphone Inj 0.5 Mg/0.5 Ml Syr) 0.5 mg IV NOW STA Stop: 05/16/25 01:34 Last Admin: 05/16/25 01:50 Dose: 0.5 mg Documented By: cathi Hydromorphone HCl (Hydromorphone Inj 1 Mg/Ml Syringe) 1 mg IV Q3H PRN PRN Reason: Pain Stop: 05/30/25 00:42 Last Admin: 05/16/25 10:08 Dose: 1 mg Documented By: Admin: 05/16/25 07:47 Dose: 1 mg Documented By: Admin: 05/16/25 04:41 Dose: 1 mg Documented By: JODY Acetaminophen ([facility]) 1,000 mg in 100 mls @ 400 mls/hr IV NOW STA Stop: 05/15/25 12:45 Last Infusion: 05/15/25 12:54 Dose: Infused Documented By: danielito Admin: 05/15/25 12:40 Dose: 400 mls/hr Documented By: AYO Acetaminophen ([facility]) 1,000 mg in 100 mls @ 400 mls/hr IV NOW STA Stop: 05/15/25 23:47 Last Infusion: 05/16/25 00:23 Dose: Infused Documented By: cathi Admin: 05/16/25 00:03 Dose: 400 mls/hr Documented By: cathi Albumin Human (Albumin 25%) 25 gm in 100 mls @ 50 mls/hr IV ONE ONE Stop: 05/16/25 01:33 Last Infusion: 05/16/25 01:36 Dose: Infused Documented By: cathi Admin: 05/16/25 00:19 Dose: 50 mls/hr Documented By: cathi Ioversol (Optiray 320 100ml) 94 ml IV ONCE ONE Stop: 05/15/25 13:25 Last Admin: 05/15/25 13:24 Dose: 94 ml Documented By: SHANIQUA Ketorolac Tromethamine (Ketorolac Tromethamine 15 Mg/Ml Vial) 10 mg IV NOW ONE Stop: 05/15/25 22:06 Last Admin: 05/15/25 22:27 Dose: 10 mg Documented By: cathi Ketorolac Tromethamine (Ketorolac Tromethamine 15 Mg/Ml Vial) 10 mg IV NOW ONE Stop: 05/16/25 00:42 Last Admin: 05/16/25 00:51 Dose: 10 mg Documented By: cathi Miscellaneous (Fentanyl Patch Remove & Waste) 1 each N/A Q3D KENDRA Stop: 06/14/25 16:14 Last Admin: 05/15/25 17:03 Dose: Not Given Documented By: ANT Miscellaneous (Check Fentanyl Patch Placement) 1 each N/A QS KENDRA Stop: 06/15/25 00:00 Last Admin: 05/16/25 07:32 Dose: 1 each Documented By: Admin: 05/16/25 00:30 Dose: 1 each Documented By: cathi Morphine Sulfate (Morphine Sulfate 2 Mg/Ml Carp) 2 mg IV NOW STA Stop: 05/15/25 13:43 Last Admin: 05/15/25 14:08 Dose: 2 mg Documented By: danielito Ondansetron HCl (Ondansetron Inj 2 Mg/Ml 2 Ml Vial) 4 mg IV NOW STA Stop: 05/15/25 13:43 Last Admin: 05/15/25 14:08 Dose: 4 mg Documented By: danielito Discharge Plan Visit Data Chief Complaint: Urinary Symptoms Stated Complaint: SWOLLEN HIPS/THIGH, BACK PAIN, BLOOD IN URINE ED Provider: Bal Davis ED Midlevel Provider: Janae Lincoln Discharge Problem: 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
[2025-05-15 12:21] LABS: Hematocrit (blood only) 27.1 % (37.0-47.0); Hemoglobin 8.8 g/dl (12.0-16.0); Immature Granulocytes # (auto) 0.02 K/uL (0.01-0.20); Immature Granulocytes % (auto) 0.3 %; Mean Corpuscular Hemoglobin 28.8 pg (25.0-34.0); Mean Corpuscular Volume 88.6 fL (80.0-100.0); Platelet Count 272 K/uL (130-400); RDW Standard Deviation 50.7 fL (36.4-46.3); Red Blood Count 3.06 M/uL (4.20-5.40); White Blood Count 7.85 K/ul (4.8-10.8)
[2025-05-15] MEDS: ACETAMINOPHEN 1,000 MG/100 ML VIAL IV STA (12:40)
[2025-05-15 12:56] LABS: Alanine Aminotransferase 5.0 U/L (7-52); Albumin Globulin Ratio 1.0 (0.9-2); Albumin Level 3.2 gm/dl (3.4-5.0); Alkaline Phosphatase 76.0 U/L (34-104); Anion Gap 5.0 (3-11); Bilirubin,Total 0.2 mg/dl (0.2-1.0); Blood Urea Nitrogen 11.0 mg/dl (6-23); Calcium 8.6 mg/dl (8.6-10.3); Carbon Dioxide 24.0 mmol/L (21-32); Chloride 104.0 mmol/L (98-107); Creatinine Clr Calc Pharmacy 57.6 ml/min; Globulin 3.1 gm/dl (2.5-4.0); Glucose 86.0 mg/dl (70-99(Fasting)); Lipase 5.0 U/L (11-82); Potassium 4.3 mmol/L (3.5-5.1); Sodium 133.0 mmol/L (136-145); Total Protein 6.3 gm/dl (6.0-8.3)
[2025-05-15] MEDS: OPTIRAY 320 100ml IV ONE (13:24)
--- NOTE | 2025-05-15 13:26 | Ultrasound Report ---
LEFT LOWER EXTREMITY VENOUS DOPPLER HISTORY: Acute pain and swelling of the left lower leg swelling, thigh pain, on hormones, hx CA COMPARISON STUDY: None. FINDINGS: Subcutaneous edema. Left inguinal chain lymph nodes are likely physiologic measuring up to 8 mm in short axis. There is normal compressibility, flow, and augmentation within the left lower ext remity deep venous system. IMPRESSION: No DVT within the left lower extremity. ACT 112: Negative or not required by law. Electronically signed by: Edgard Braxton M.D. 05/15/2025 1:25 PM
--- NOTE | 2025-05-15 13:58 | CT Scan Report ---
CT hip LT w con HISTORY: 45 years-old Female hip/thigh swelling, chemotherapy, cervical CA acute pain and swelling o f the left hip in a patient with history of cervical carcinoma COMPARISON: CT left femur of same day, CT abdomen and pelvis 04/01/2025 and 05/15/2025 TECHNIQUE: Multiple axial CT images of the left hip were obtained with IV contrast. A dose lowering t echnique was used consistent with the principals of ELTON. FINDINGS: CT abdomen and pelvis dictated separately. A left ureteral stent is in place. Irregular urinary bladd er wall thickening. Soft tissue thickening noted within the distribution of the cervix. Heterogeneity of the uterus. Trace free pelvic fluid. Left inguinal chain lymph nodes measure up to 10 mm. There i s extensive diffuse subcutaneous edema throughout. No discrete fluid collection or soft tissue mass. No acute fracture, dislocation, osseous erosion or suspicious bone lesion. IMPRESSION: 1. Diffuse subcutaneous edema. Differential considerations include cellulitis, venous stasis or lymph edema. 2. No discrete fluid collection or soft tissue mass. 3. No acute osseous abnormality. 4. Nonspecific left inguinal lymphadenopathy. 5. CT abdomen and pelvis dictated separately. ACT 112: Negative or not required by law. The above report was generated using voice recognition software. It may contain grammatical, syntax o r spelling errors. Electronically signed by: Edgard Braxton M.D. 05/15/2025 1:57 PM
--- NOTE | 2025-05-15 14:05 | CT Scan Report ---
CT SCAN OF THE ABDOMEN AND PELVIS WITH IV CONTRAST CLINICAL HISTORY: Cervical carcinoma. Left hip and thigh swelling. COMPARISON STUDY: 04/01/2025 TECHNIQUE: Following the IV administration of 94 cc of Optiray 320, CT scan of the abdomen and pelvi s is performed from the lung bases to the proximal femora. Images are reviewed in the axial, sagittal , and coronal planes. IV contrast was administered without complication. A dose lowering technique wa s utilized adhering to the principles of ALARA. CT DOSE: FINDINGS: Lung bases: No pleural effusions are visualized. There is no basilar parenchymal consolidation. Liver: Subcentimeter hepatic hypodensities remain stable and likely represent small cysts. Gallbladder: Unremarkable in appearance Spleen: No splenic masses are visualized Pancreas: Pancreatic masses are visualized. Adrenal glands: No adrenal masses are visualized. Kidneys: No solid renal masses are visualized. There is been resolution of previously described left- sided hydronephrosis. There is a left-sided nephroureteral stent present. Abdominal vasculature: There is no evidence of abdominal aortic dilatation. The left renal vein is ef faced by a retroperitoneal mass encases the aorta, likely representing pathologic adenopathy. The pro ximal iliac veins are difficult to visualize and are likely thrombosed. There is thrombus within the right renal vein IVC confluence. The infrarenal IVC appears occluded. The suprarenal inferior vena ca va appears patent. Multiple perirenal venous collaterals are visualized. Bowel: The right colon is stool-filled and distended. The cecum measures 73 mm transversely. A discre te transition zone is not visualized. The findings likely represent ileus. The appendix is not visual ized with certainty. Peritoneum: There is increased density of the peritoneal fat likely secondary to anasarca. There is a lso increased density in the subcutaneous fat throughout the abdomen and pelvis. Lymphadenopathy: There is a hypodense mass encasing the aorta measuring 4 x 3 x 10 cm. This is most consistent with adenopathy. Other pathologic entities not excluded. Pelvic viscera: There is a 1 cm fat-containing density within the right adnexa possibly ovarian. The re is no uterine cavity dilatation. There is diffuse bladder wall thickening.. There is a left-sided ureteral stent within the bladder. Skeletal structures: There are no suspicious lytic or blastic skeletal lesions. IMPRESSION: 1. 10 x 4 x 3 cm hypodense mass encasing the abdominal aorta and proximal iliac vessels. Given histor y of cervical carcinoma this may represent a necrotic lymph node mass. Other etiologies not excluded with certainty 2. Effacement of the common iliac veins bilaterally. These may be thrombosed. In addition there is th rombus within the inferior vena cava at the right renal vein IVC junction. The infrarenal IVC appears occluded. The suprarenal IVC appears patent. Multiple venous collaterals are visualized likely secon yanelis to the IVC occlusion. 3. Indwelling left-sided nephroureteral stent. Resolution of previously described left-sided hydronep hrosis. 4. Diffuse bladder wall thickening 5. No evidence of bowel obstruction. Fecal retention with a cecum measuring 73 mm. ACT 112: Negative or not required by law. Electronically signed by: Preston Rice M.D. 05/15/2025 2:03 PM
--- NOTE | 2025-05-15 14:06 | CT Scan Report ---
CT SCAN OF THE LEFT FEMUR WITH IV CONTRAST CLINICAL HISTORY: Left leg swelling. COMPARISON STUDY: No priors. TECHNIQUE: Following the IV administration of 94 cc of Optiray 320, CT scan of the left femur is per formed from the bony pelvis to the knee. Images are reviewed in the axial, sagittal, and coronal plan es. IV contrast wasn't ministered without complication. A dose lowering technique was utilized adher ing to the principles of ALARA. Note that interpretation is suboptimal without plain film correlate. CT DOSE: 1196.03 mGy.cm FINDINGS: The skeletal structures are well-mineralized. There is no evidence of left femoral fracture . There is no avascular necrosis of the left femoral head. The hip and knee joints are grossly mainta ined. No lytic or blastic lesion is seen. Diffuse subcutaneous and deep soft tissue edema is identifi ed throughout the left hip and thigh. Soft tissue edema is also seen in the partially imaged right th igh. No organized fluid collection is identified and no enhancing mass lesion is seen. There is a tin y popliteal cyst. No soft tissue gas is seen throughout the left leg. A distal end of a left ureteral stent is partially visualized. The bladder wall appears thickened. No left pelvic sidewall or left i nguinal adenopathy is seen. The femoral vessels are patent as imaged. IMPRESSION: 1. No acute bony abnormality is seen involving the left femur. 2. Diffuse subcutaneous and deep soft tissue edema seen throughout the left hip and thigh. Correlate clinically. 3. No organized fluid collection is seen. 4. A left ureteral stent is partially imaged within the bladder lumen, and the visualized bladder wal l appears thickened. Correlate with clinical findings and urinalysis. ACT 112: Negative or not required by law. Electronically signed by: Bal Robles M.D. 05/15/2025 2:04 PM
[2025-05-15] MEDS: ONDANSETRON INJ 2 MG/ML 2 ML VIAL IV STA (14:08)
[2025-05-15] MEDS: MoRPHine SULFATE 2 MG/ML CARP IV STA (14:08)
--- NOTE | 2025-05-15 15:06 | History & Physical Report ---
<Statement entered by Dean Russo, - 05/15/25 18:31> I have seen and examined the patient and have discussed the case with the advance practice provider. I have reviewed the advanced practitioner's documentation, and I agree with, and take responsibility for that plan of care. Patient with known cervical cancer. On Keytruda treatments. Last update the patient had thought she had been making some improvements. Today imaging seems to suggest rapid increase of adenopathy. Also new findings of extensive clot burden. Exam: Patient with dependent edema on the hips. Patient with severe protein calorie malnutrition and third spacing due to hypoalbuminemia. Additional anasarca/edema due to poor limb flow from extensive clot burden in the pelvis. Increasing pain most likely due to increasing tumor burden in abdomen and pelvis. Pain control Ongoing discussion and assessment of her goals of care Plan of care as outlined below I spent a total of 22 minutes coordinating, documenting, and providing care for this patient excluding time spent by another provider/QHP. Date of Service May 15, 2025 Assessment & Plan (1) Cancer related pain: (2) Severe protein-calorie malnutrition: (3) Metastasis from cervical cancer: (4) Goals of care, counseling/discussion: Plan Ms. Farrell is a 44 year old unfortunate female that presents to the ED with complaints of worsening swelling in her bilateral hips, thigh and suprapubic/vaginal area for the past two weeks. She has an underlying diagnosis of cervical squamous cell carcinoma. She has completed radiation and has been received chemo (Keytruda) every 6 weeks and her last dose was last week. She follows with Dr. Bass at [facility] and also [facility] [place]. Pt will be admitted for further evaluation and symptom management of her progressing cancer. Will focus on symptom/pain management. She felt that the Fentanyl and Dilaudid were helpful. Cancer Related Pain: She follows with Palliative Care at [facility] and current pain management is: * Fentanyl patch 75 mcg Q72 hours. Last placed 05/14 * Dilaudid 4 mg PO Q6 PRN; reportedly takes approximately 1 tab per day. * Was taking MSContin and was switched to TD Fentanyl on 03/28/25 due to uncontrolled pain. Worsening Metastatic cervical cancer: Original Dx 05/2024 original s/s: lower abdominal pain and irregular bleeding for a few months. PAP 05/2024 revealing epithelial cell abnormality, HPV (+), and High-Grade squamous intraepithelial lesion. Bx (+) for invasive squamous cell carcinoma differentiated FIGO Stage IIIC. Completed cisplatin concurrent with the radiation therapy and Keytruda. Follows with Dr. Bass and also [facility] [place] Oncology Imaging completed in ED: CTAP: * 10 x 4 x 3 cm hypodense mass encasing the abdominal aorta and proximal iliac vessels. Given history of cervical carcinoma this may represent a necrotic lymph node mass. * Effacement of the common iliac veins bilaterally. These may be thrombosed. 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 The infrarenal IVC appears occluded. The suprarenal IVC appears patent. Multiple venous collaterals are visualized likely secondary to the IVC occlusion. Hip CT: * left ureteral stent is in place. Irregular urinary bladder wall thickening. Soft tissue thickening noted within the distribution of the cervix. Heterogeneity of the uterus. Trace free pelvic fluid. Left inguinal chain lymph nodes measure up to 10 mm. There is extensive diffuse subcutaneous edema throughout. No discrete fluid collection or soft tissue mass. Message sent via [place] Text to Dr. Bass. Focus on symptom management as outlined above Palliative Medicine consult placed DVT: Inferior pamela cava at the right renal vein IVC junction. For now, start Lovenox Unlikely surgical candidate for thrombectomy or reconstruction. Goals of Care Conversation: In asking her where she is regarding her cancer journey emotionally, she said she felt like things were better and 'doesnt understand'. She said a few times that she is in 'shock' and wants her to be with her. Currently, her mother is with her at bedside for the conversations. It seems that she is understandably in a denial/bargaining phase of her journey from my perspective. She is young and felt like progress was being made. We discussed the extent of what encapsulating tumors can look like, specifically in the aorta. Would not be surprised if she had short months of life expectancy. Disposition: PCP: Dr. Whelan Code Staus: Full Code VTE Prophylaxis: Lovenox SQ I spent a total of 78 minutes coordinating, documenting, and providing care for this patient excluding time spent inthe performance of separately billed services or time spent by another provider/QHP. History of Present Illness Chief Complaint: swelling legs/weakness Primary Care Provider: Dorinda Whelan MD Ms. Farrell is a 44 year old unfortunate female that presents to the ED with complaints of worsening swelling in her bilateral hips, thigh and suprapubic/vaginal area for the past two weeks. She has an underlying diagnosis of cervical squamous cell carcinoma. She has completed radiation and has been received chemo (Keytruda) every 6 weeks and her last dose was last week. She follows with Dr. Bass at [facility] and also She follows with Palliative Care at [facility] and current pain management is: * Fentanyl patch 75 mcg Q72 hours. Last placed 05/14 * Dilaudid 4 mg PO Q6 PRN; reportedly takes approximately 1 tab per day. * Was taking MSContin and was switched to TD Fentanyl on 03/28/25 due to uncontrolled pain. Current Chemotherapy: In the ED, no leukocytosis, otherwise labs unremarkable. Imaging completed in ED: CTAP: * 10 x 4 x 3 cm hypodense mass encasing the abdominal aorta and proximal iliac vessels. Given history of cervical carcinoma this may represent a necrotic lymph node mass. * Effacement of the common iliac veins bilaterally. These may be thrombosed. 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 The infrarenal IVC appears occluded. The suprarenal IVC appears patent. Multiple venous collaterals are visualized likely secondary to the IVC occlusion. Hip CT: * left ureteral stent is in place. Irregular urinary bladder wall thickening. Soft tissue thickening noted within the distribution of the cervix. Heterogeneity of the uterus. Trace free pelvic fluid. Left inguinal chain lymph nodes measure up to 10 mm. There is extensive diffuse subcutaneous edema throughout. No discrete fluid collection or soft tissue mass. In reference to previous scans in February 2025, a CT AP indicated periaortic fluid collection, more conspicuous, measuring up to 4.3 cm, approximating blood attenuation with possible peripheral wall enhancement. Retroperitoneal hemorrhage and/or aortic injury with leaking aorta is on the differential diag nosis. Further imaging was done on 03/28/25 when she was admitted which showed improvement so the scans from today do indicate a large change. She was recently admitted to [facility] from 04/01-04/06 for obstructive nephropathy with stent placement and complicated UTI. She grew Corynebacterium amycolatum in her urine and was started on IV Vanco while inpt and transitioned to PO Zyvox 600 mg BID for a 10 day course completion. She reportedly has frequent UTI's. Regarding her cancer history: Her original symptoms were lower abdominal pain and irregular bleeding for a few months. She had a PAP 05/2024 revealing epithelial cell abnormality, HPV (+), and High-Grade squamous intraepithelial lesion. Her biopsies were positive for invasive squamous cell carcinoma differentiated FIGO Stage IIIC. She completed cisplatin concurrent with the radiation therapy and Keytruda. Denies TA, dizziness, SOB, chest pain, abdominal pain or tenderness, denies recent falls or trauma. Denies urinary or bowel changes. On examination, patient is severely cachectic, nava, AAOx3, able to stand on her own, bilateral hip swelling, reports increased appetite lately with 6# weight gain. In asking her where she is regarding her cancer journey emotionally, she said she felt like things were better and 'doesnt understand'. She said a few times that she is in 'shock' and wants her to be with her. Currently, her mother is with her at bedside for the conversations. It seems that she is understandably in a denial/bargaining phase of her journey from my perspective. She is young and felt like progress was being made. We discussed the extent of what encapsulating tumors can look like, specifically in the aorta. I advised main focus is symptom management for now, will reach out to oncology for advancing imaging results and consult palliative medicine. Pt father is a reverend and they will request [place] if they wish. Patient will be admitted for further evaluation and symptom management of her progressing cancer. Will focus on symptom/pain management. She felt that the Fentanyl and Dilaudid were helpful. Please see A/P for further details. Allergies Allergy/AdvReac Type Severity Reaction Status Date / Time No Known Allergies Allergy Verified 05/15/25 15:00 Home Medications Medication Instructions Recorded Confirmed Type hydromorphone 4 mg tablet 4 mg PO .Q6-8H PRN Pain 10/02/24 05/15/25 History estradiol 0.01% (0.1 mg/gram) 1 applic vaginal 3XWK 02/24/25 05/15/25 History vaginal cream progesterone micronized 100 mg 100 mg PO QAM 02/24/25 05/15/25 History capsule lactobacillus combination no.4 3 3,000 mmu cells PO DAILY 03/06/25 05/15/25 History billion cell capsule (Probiotic) magnesium citrate 100 mg capsule 100 mg PO DAILY 03/06/25 05/15/25 History sennosides 8.6 mg tablet (senna) 17.2 mg PO HS 03/06/25 05/15/25 History phenazopyridine 100 mg tablet 100 mg PO TID PRN dysuria #10 tabs 03/09/25 05/15/25 Rx (Pyridium) fentanyl 75 mcg/hr transdermal 75 mcg transdermal Q72H 04/01/25 05/15/25 History patch lactulose 10 gram/15 mL oral 15 ml PO Q8H PRN if no bowel 04/01/25 05/15/25 History solution (Constulose) movement in 3 days oxybutynin chloride 5 mg tablet 5 mg PO DAILY 04/01/25 05/15/25 History tamsulosin 0.4 mg capsule 0.4 mg PO QAM 04/01/25 05/15/25 History desvenlafaxine succinate 25 mg 25 mg PO QAM 05/15/25 05/15/25 History tablet,extended release 24 hr melatonin 3 mg disintegrating 3 mg PO HS 05/15/25 05/15/25 History tablet meloxicam 15 mg tablet 15 mg PO QAM 05/15/25 05/15/25 History sulfamethoxazole 400 1 tab PO QAM 05/15/25 05/15/25 History mg-trimethoprim 80 mg tablet Past Med/Surg History Problem List (Updated 05/15/25 @ 15:57 by VIVEK Briscoe) Goals of care, counseling/discussion Metastasis from cervical cancer Obstructive nephropathy Anemia (Acute) Hydronephrosis, left (Acute) Cancer related pain (Acute) Complicated UTI (urinary tract infection) (Acute) Squamous cell carcinoma of cervix (Acute 07/25/24) Ureteral stent present (Acute) Medical History Severe protein-calorie malnutrition Tobacco use Neoplasm causing mass effect on adjacent structures Hyponatremia Hydronephrosis Pelvic mass Surgical History Status post cystoscopy with ureteral stent placement Status post colposcopy History of knee surgery Removal of Spaulding's cyst - right Family History Mother No problems noted. Father , 42yo Cerebral aneurysm S/p nephrectomy Brother No problems noted. Brother No problems noted. Sister Twin Pts twin sister Son No problems noted. Daughter No problems noted. 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 CV: (-) CP, palpitations, swelling Resp: (-) SOB GI: (+) appetite changes, N/V/D, bowel changes : (-) urinary changes Skin: (-) rashes (+) swelling bilateral hips Psych: (+) anxiety, depression Physical Exam Physical Exam: Neuro: AAOx4, PERRLA, no aphagia, memory changes, CNII-XII grossly intact HEENT: head normocephalic, dry mucus membranes. severely cachectic CV: S1/S2, (-) M/G/R, (-) edema related to cardiac, cap refill < 3 seconds Resp: Lungs CTA in all cuenca. On RA GI: Abdomen S/NT/ND, Ax4 bowel sounds, (-) CVA tenderness Musculoskeletal: 5/5 B/L UE strength, 5/5 B/L LE strength. No gait disturbance Skin: (-) rashes , (-) erythema. Bilateral swelling at the top of bilateral hips and suprapubic area. Psych: euthymic mood Results & Data Results & Data Vital Signs (Past 12 Hours) Vital Signs Temp Pulse Pulse Resp BP BP Pulse Ox 05/15/25 13:33 76 20 121/79 98 05/15/25 12:02 100 H 20 117/79 97 05/15/25 11:08 36.4 C L 103 H 18 117/76 98 O2 Del Method 05/15/25 13:33 Room Air 05/15/25 12:02 Room Air 05/15/25 11:08 Room Air Laboratory Results Short CBC 05/15/25 Range/Units 11:54 WBC 7.85 (4.8-10.8) K/ul Hgb 8.8 L (12.0-16.0) g/dl Hct 27.1 L (37.0-47.0) % Plt Count 272 (130-400) K/uL BMP 05/15/25 11:54 Sodium 133 L Potassium 4.3 Chloride 104 Carbon Dioxide 24 BUN 11 Creatinine 0.87 Glucose 86 Calcium 8.6 Liver Function 05/15/25 Range/Units 11:54 Total Bilirubin 0.2 (0.2-1.0) mg/dl AST 10 L (13-39) U/L ALT 5 L (7-52) U/L Alkaline Phosphatase 76 (34-104) U/L Albumin 3.2 L (3.4-5.0) gm/dl Diagnostic Findings Venous Doppler Study 05/15/25 11:36 LEFT LOWER EXTREMITY VENOUS DOPPLER HISTORY: Acute pain and swelling of the left lower leg swelling, thigh pain, on hormones, hx CA COMPARISON STUDY: None. FINDINGS: Subcutaneous edema. Left inguinal chain lymph nodes are likely physiologic measuring up to 8 mm in short axis. There is normal compressibility, flow, and augmentation within the left lower extremity deep venous system. IMPRESSION: No DVT within the left lower extremity. ACT 112: Negative or not required by law. Electronically signed by: Edgard Braxton M.D. 05/15/2025 1:25 PM Abdomen/Pelvis CT 05/15/25 12:55 CT SCAN OF THE ABDOMEN AND PELVIS WITH IV CONTRAST CLINICAL HISTORY: Cervical carcinoma. Left hip and thigh swelling. COMPARISON STUDY: 04/01/2025 TECHNIQUE: Following the IV administration of 94 cc of Optiray 320, CT scan of the abdomen and pelvis is performed from the lung bases to the proximal femora. Images are reviewed in the axial, sagittal, and coronal planes. IV contrast was administered without complication. A dose lowering technique was utilized adhering to the principles of ALARA. CT DOSE: FINDINGS: Lung bases: No pleural effusions are visualized. There is no basilar parenchymal consolidation. Liver: Subcentimeter hepatic hypodensities remain stable and likely represent small cysts. Gallbladder: Unremarkable in appearance Spleen: No splenic masses are visualized Pancreas: Pancreatic masses are visualized. Adrenal glands: No adrenal masses are visualized. Kidneys: No solid renal masses are visualized. There is been resolution of previously described left-sided hydronephrosis. There is a left-sided nephroureteral stent present. Abdominal vasculature: There is no evidence of abdominal aortic dilatation. The left renal vein is effaced by a retroperitoneal mass encases the aorta, likely representing pathologic adenopathy. The proximal iliac veins are difficult to visualize and are likely thrombosed. There is thrombus within the right renal vein IVC confluence. The infrarenal IVC appears occluded. The suprarenal inferior vena cava appears patent. Multiple perirenal venous collaterals are visualized. Bowel: The right colon is stool-filled and distended. The cecum measures 73 mm transversely. A discrete transition zone is not visualized. The findings likely represent ileus. The appendix is not visualized with certainty. Peritoneum: There is increased density of the peritoneal fat likely secondary to anasarca. There is also increased density in the subcutaneous fat throughout the abdomen and pelvis. Lymphadenopathy: There is a hypodense mass encasing the aorta measuring 4 x 3 x 10 cm. This is most consistent with adenopathy. Other pathologic entities not excluded. Pelvic viscera: There is a 1 cm fat-containing density within the right adnexa possibly ovarian. There is no uterine cavity dilatation. There is diffuse bladder wall thickening.. There is a left-sided ureteral stent within the bladder. Skeletal structures: There are no suspicious lytic or blastic skeletal lesions. IMPRESSION: 1. 10 x 4 x 3 cm hypodense mass encasing the abdominal aorta and proximal iliac vessels. Given history of cervical carcinoma this may represent a necrotic lymph node mass. Other etiologies not excluded with certainty 2. Effacement of the common iliac veins bilaterally. These may be thrombosed. 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 The infrarenal IVC appears occluded. The suprarenal IVC appears patent. Multiple venous collaterals are visualized likely secondary to the IVC occlusion. 3. Indwelling left-sided nephroureteral stent. Resolution of previously described left-sided hydronephrosis. 4. Diffuse bladder wall thickening 5. No evidence of bowel obstruction. Fecal retention with a cecum measuring 73 mm. ACT 112: Negative or not required by law. Electronically signed by: Preston Rice M.D. 05/15/2025 2:[address] 05/15/25 12:55 CT SCAN OF THE LEFT FEMUR WITH IV CONTRAST CLINICAL HISTORY: Left leg swelling. COMPARISON STUDY: No priors. TECHNIQUE: Following the IV administration of 94 cc of Optiray 320, CT scan of the left femur is performed from the bony pelvis to the knee. Images are reviewed in the axial, sagittal, and coronal planes. IV contrast wasn't ministered without complication. A dose lowering technique was utilized adhering to the principles of ALARA. Note that interpretation is suboptimal without plain film correlate. CT DOSE: 1196.03 mGy.cm FINDINGS: The skeletal structures are well-mineralized. There is no evidence of left femoral fracture. There is no avascular necrosis of the left femoral head. The hip and knee joints are grossly maintained. No lytic or blastic lesion is seen. Diffuse subcutaneous and deep soft tissue edema is identified throughout the left hip and thigh. Soft tissue edema is also seen in the partially imaged right thigh. No organized fluid collection is identified and no enhancing mass lesion is seen. There is a tiny popliteal cyst. No soft tissue gas is seen throughout the left leg. A distal end of a left ureteral stent is partially visualized. The bladder wall appears thickened. No left pelvic sidewall or left inguinal adenopathy is seen. The femoral vessels are patent as imaged. IMPRESSION: 1. No acute bony abnormality is seen involving the left femur. 2. Diffuse subcutaneous and deep soft tissue edema seen throughout the left hip and thigh. Correlate clinically. 3. No organized fluid collection is seen. 4. A left ureteral stent is partially imaged within the bladder lumen, and the visualized bladder wall appears thickened. Correlate with clinical findings and urinalysis. ACT 112: Negative or not required by law. Electronically signed by: Bal Robles M.D. 05/15/2025 2:[address] 05/15/25 12:55 CT hip LT w con HISTORY: 45 years-old Female hip/thigh swelling, chemotherapy, cervical CA acute pain and swelling of the left hip in a patient with history of cervical carcinoma COMPARISON: CT left femur of same day, CT abdomen and pelvis 04/01/2025 and 05/15/2025 TECHNIQUE: Multiple axial CT images of the left hip were obtained with IV contrast. A dose lowering technique was used consistent with the principals of ELTON. FINDINGS: CT abdomen and pelvis dictated separately. A left ureteral stent is in place. Irregular urinary bladder wall thickening. Soft tissue thickening noted within the distribution of the cervix. Heterogeneity of the uterus. Trace free pelvic fluid. Left inguinal chain lymph nodes measure up to 10 mm. There is extensive diffuse subcutaneous edema throughout. No discrete fluid collection or soft tissue mass. No acute fracture, dislocation, osseous erosion or suspicious bone lesion. IMPRESSION: 1. Diffuse subcutaneous edema. Differential considerations include cellulitis, venous stasis or lymphedema. 2. No discrete fluid collection or soft tissue mass. 3. No acute osseous abnormality. 4. Nonspecific left inguinal lymphadenopathy. 5. CT abdomen and pelvis dictated separately. ACT 112: Negative or not required by law. The above report was generated using voice recognition software. It may contain grammatical, syntax or spelling errors. Electronically signed by: Edgard Braxton M.D. 05/15/2025 1:57 PM Code Status & VTE Plan Code Status Full Code in the event of cardiac or respiratory arrest VTE Prophylaxis Plan VTE Prophylaxis will be ordered: Yes
[2025-05-15 17:06] LABS: Appearance Urine Slightly Cloudy (Clear)
[2025-05-15 17:18] LABS: WBC Urine Automated 21-50 /hpf (0-5)
[2025-05-15 17:19] LABS: Bacteria Urine Automated 1+ (Negative); Cast Urine Automated 0-2 /lpf (0-5)
[2025-05-15] MEDS ORDERED: ACETAMINOPHEN 325 MG TAB PO PRN (17:37)
[2025-05-15] MEDS ORDERED: ONDANSETRON INJ 2 MG/ML 2 ML VIAL IV PRN (17:37)
[2025-05-15] MEDS ORDERED: ALUMINUM/MAGNESIUM SUSP 30 ML UDC PO PRN (17:37)
[2025-05-15] MEDS ORDERED: POLYETHYLENE (MIRALAX) 17 GM PACK PO PRN (17:37)
[2025-05-15] MEDS: ENOXAPARIN INJ 40 MG/0.4 ML SYR SQ SCH (20:42)
[2025-05-15] MEDS: SENNA 8.6 MG TAB PO SCH (20:44)
[2025-05-15] MEDS: MELATONIN 3 MG TAB PO SCH (20:45)
[2025-05-15] MEDS: KETOROLAC TROMETHAMINE 15 MG/ML VIAL IV ONE (22:27)
[2025-05-16] MEDS: HYDROmorphone INJ 0.5 MG/0.5 ML SYR IV PRN ×2 (00:01→00:53)
[2025-05-16] MEDS: ACETAMINOPHEN 1,000 MG/100 ML VIAL IV STA (00:03)
[2025-05-16] MEDS: ALBUMIN 25% 25 GM/100 ML VIAL IV ONE (00:19)
[2025-05-16] MEDS: KETOROLAC TROMETHAMINE 15 MG/ML VIAL IV ONE (00:51)
[2025-05-16] MEDS: HYDROmorphone INJ 0.5 MG/0.5 ML SYR IV STA (01:50)
[2025-05-16] MEDS: HYDROmorphone INJ 1 MG/ML SYRINGE IV PRN (04:41)
--- NOTE | 2025-05-16 06:28 | Communication Note ---
Date of Service: May 16, 2025 Patient with hematuria as per RN. Abdominal pain better controlled. AP Hematuria Check UA Hold Lovenox for now
[2025-05-16 06:50] LABS: Appearance Urine Cloudy (Clear); Glucose Urine UA Negative (Negative)
[2025-05-16 06:50] LABS: Hematocrit (blood only) 29.2 % (37.0-47.0); Hemoglobin 9.3 g/dl (12.0-16.0); Mean Corpuscular Hemoglobin 28.2 pg (25.0-34.0); Mean Corpuscular Volume 88.5 fL (80.0-100.0); Platelet Count 275 K/uL (130-400); RDW Standard Deviation 49.4 fL (36.4-46.3); Red Blood Count 3.30 M/uL (4.20-5.40); White Blood Count 9.65 K/ul (4.8-10.8)
[2025-05-16 07:19] LABS: Anion Gap 9.0 (3-11); Blood Urea Nitrogen 14.0 mg/dl (6-23); Calcium 9.4 mg/dl (8.6-10.3); Carbon Dioxide 24.0 mmol/L (21-32); Chloride 98.0 mmol/L (98-107); Creatinine Clr Calc Pharmacy 57.7 ml/min; Glucose 97.0 mg/dl (70-99(Fasting)); Potassium 4.8 mmol/L (3.5-5.1); Sodium 131.0 mmol/L (136-145)
[2025-05-16] MEDS: TAMSULOSIN HCL 0.4 MG CAP PO SCH (07:48)
--- NOTE | 2025-05-16 09:05 | Palliative Care Consultation ---
Date of Consultation May 16, 2025 Assessment & Plan (1) Cancer related pain: pt. c/o intractable abd/pelvic/lumbar pain which is interfering with ADLs and sleep. She shared that prior to admission her pain was poorly controlled with 75 mcg Fentanyl patch and Dilaudid 4 mg PO for BTP. Pt shared she is requiring dilaudid q4h most days due to intractable pain which is worse at night than in daytime. Discussed with Dr Russo, pain will continue to be managed as per primary team. (2) Palliative care by specialist: Met with patient and her spouse Lamont, her mother and multiple other family members at bedside. Introduced Palliative Medicine and explained our role in advanced care planning, symptom management and navigation through the progression of life limiting disease. Patient and/or family were receptive to palliative services for goals of care discussions. Reviewed we are different from hospice, a home health nurse visiting service. (3) Goals of care, counseling/discussion: Spoke with pt and multiple family members, including her mother and her spouse from 10:15 - 10:45 to discuss pt values and goals of care. This meeting was necessary for determining the appropriate course of treatment. We discussed at length the patient's acute and chronic medical conditions, general prognosis, and goals of care. Patient and her family expressed confusion with new findings of mass encasing the abdominal aorta and proximal iliac vessels, explaining that they were under impression that her cancer was responding well to treatment. Pt's mother and sister had many questions re: response to previous cancer treatments, further chemo/radiation treatment options, possible vascular surgery or options for tumor resection. Patient shared that her last diagnostic scans were in January and she was told that the tumors were smaller. Her mother questioned if stopping chemotherapy had allowed this to happen. We discussed the multifactorial and unpredictable nature of cancer progression and encouraged discussion of treatment options with Oncology team, consult has been ordered by primary team. We discussed possible complications r/t decreased blood flow to/from her lower extremities. Pt's mother suggested that exercise might improve her blood flow and prevent these complications. Helped them understand that the occlusion caused by tumor burden is unlikely to be affected by exercise, but encouraged mobility as able to promote overall health. We discussed overall poor prognosis given current hematuria iso IVC thrombus / abdominal aorta mass requiring anticoagulation to prevent further complications. Given pt's decompensated health and poor prognosis, discussed code status and helped them understand that CPR is only done after a person has and involves uncomfortable and invasive procedures that, if successful. have high risk of multiple complications including but not limited to rib fractures, pneumo/hemothorax, GLENN, ventilator dependence, anoxic brain injury, and terminal carman/permanent cognitive and functional deficits. The patient had minimal participation in discussion, but she did share understanding and stated she had no questions at this time. Pt shared that she needs some time to think about all of this and discuss with her oncology team and spouse before deciding how to proceed. Pt would like to revisit [facility] after she has had opportunity to discuss with oncology. Will revisit tomorrow. Plan as above History of Present Illness Reason for Consultation: goals of care Requesting Physician: Amy DOYLE Attending Physician: Dean Russo DO History of Present Illness Ms Farrell is a 45y female that presents to the ED 05/15/25 with complaints of worsening swelling in her bilateral hips, thigh and suprapubic/vaginal area for the past two weeks. She has an underlying diagnosis of cervical squamous cell carcinoma. She has completed radiation and has been received chemo (Keytruda) e very 6 weeks and her last dose was last week. She follows with Dr. Bass at [facility] as well as Palliaitve care team at [facility]. Her outpt pain management plan is: * Fentanyl patch 75 mcg Q72 hours. Last placed 05/14 * Dilaudid 4 mg PO Q6 PRN (although pt and spouse admit she is taking q4h most days due to intractable pain) * MSContin switched to TD Fentanyl on 03/28/25 due to uncontrolled pain. Cancer history: Her original symptoms were lower abdominal pain and irregular bleeding for a few months. She had a PAP 05/2024 revealing epithelial cell abnormality, HPV (+), and High-Grade squamous intraepithelial lesion. Her biopsies were positive for invasive squamous cell carcinoma differentiated FIGO Stage IIIC. She completed cisplatin concurrent with the radiation therapy and Keytruda. Per ED notes: "CTAP: * 10 x 4 x 3 cm hypodense mass encasing the abdominal aorta and proximal iliac vessels. Given history of cervical carcinoma this may represent a necrotic lymph node mass. * Effacement of the common iliac veins bilaterally. These may be thrombosed. 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 The infrarenal IVC appears occluded. The suprarenal IVC appears patent. Multiple venous collaterals are visualized likely secondary to the IVC occlusion. Hip CT: * left ureteral stent is in place. Irregular urinary bladder wall thickening. Soft tissue thickening noted within the distribution of the cervix. Heterogeneity of the uterus. Trace free pelvic fluid. Left inguinal chain lymph nodes measure up to 10 mm. There is extensive diffuse subcutaneous edema throughout. No discrete fluid collection or soft tissue mass. In reference to previous scans in February 2025, a CT AP indicated periaortic fluid collection, more conspicuous, measuring up to 4.3 cm, approximating blood attenuation with possible peripheral wall enhancement. Retroperitoneal hemorrhage and/or aortic injury with leaking aorta is on the differential diagnosis. Further imaging was done on 03/28/25 when she was admitted which showed improvement so the scans from today do indicate a large change." Of note, she was recently admitted to [facility] from 04/01-04/06 for obstructive nephropathy with stent placement and complicated UTI. She grew Corynebacterium amycolatum in her urine and was started on IV Vanco while inpt and transitioned to PO Zyvox 600 mg BID for a 10 day course completion. She reportedly has frequent UTI's. Allergies Allergy/AdvReac Type Severity Reaction Status Date / Time No Known Allergies Allergy Verified 05/15/25 15:00 Home Medications Medication Instructions Recorded Confirmed Type hydromorphone 4 mg tablet 4 mg PO .Q6-8H PRN Pain 10/02/24 05/15/25 History estradiol 0.01% (0.1 mg/gram) 1 applic vaginal 3XWK 02/24/25 05/15/25 History vaginal cream progesterone micronized 100 mg 100 mg PO QAM 02/24/25 05/15/25 History capsule lactobacillus combination no.4 3 3,000 mmu cells PO DAILY 03/06/25 05/15/25 History billion cell capsule (Probiotic) magnesium citrate 100 mg capsule 100 mg PO DAILY 03/06/25 05/15/25 History sennosides 8.6 mg tablet (senna) 17.2 mg PO HS 03/06/25 05/15/25 History phenazopyridine 100 mg tablet 100 mg PO TID PRN dysuria #10 tabs 03/09/25 05/15/25 Rx (Pyridium) fentanyl 75 mcg/hr transdermal 75 mcg transdermal Q72H 04/01/25 05/15/25 History patch lactulose 10 gram/15 mL oral 15 ml PO Q8H PRN if no bowel 04/01/25 05/15/25 History solution (Constulose) movement in 3 days oxybutynin chloride 5 mg tablet 5 mg PO DAILY 04/01/25 05/15/25 History tamsulosin 0.4 mg capsule 0.4 mg PO QAM 04/01/25 05/15/25 History desvenlafaxine succinate 25 mg 25 mg PO QAM 05/15/25 05/15/25 History tablet,extended release 24 hr melatonin 3 mg disintegrating 3 mg PO HS 05/15/25 05/15/25 History tablet meloxicam 15 mg tablet 15 mg PO QAM 05/15/25 05/15/25 History sulfamethoxazole 400 1 tab PO QAM 05/15/25 05/15/25 History mg-trimethoprim 80 mg tablet Patient History Medical History Severe protein-calorie malnutrition Tobacco use Neoplasm causing mass effect on adjacent structures Hyponatremia Hydronephrosis Pelvic mass Surgical History Status post cystoscopy with ureteral stent placement Status post colposcopy History of knee surgery Removal of Spaulding's cyst - right Family History Mother No problems noted. Father , 42yo Cerebral aneurysm S/p nephrectomy Brother No problems noted. Brother No problems noted. Sister Twin Pts twin sister Son No problems noted. Daughter No problems noted. 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 Eyes: PERRL, conjunctivae normal, anicteric sclerae ENMT: external ear and nose normal, oropharynx normal Respiratory: normal respiratory effort, lungs clear to auscultation Cardiovascular: Rate/Rhythm: regular rate and + tachycardic Heart Sounds: normal S1 and normal S2 Extremities: + edema Gastrointestinal (Abdomen): Inspection/Auscultation: normal bowel sounds Percussion/Palpation: + abdomen tender Musculoskeletal: no cyanosis or clubbing, extremities motor strength 5/5 Neurologic: PERRL, EOMI, accommodation nl, no face palsy, no dysarthria Psychiatric: A+Ox3, euthymic affect Results & Data Vital Signs (Past 12 Hours) Vital Signs Temp Pulse Resp BP Pulse Ox O2 Del Method 05/16/25 07:30 Room Air 05/16/25 07:24 36.6 C 64 16 127/73 96 Room Air 05/16/25 01:33 139/70 05/16/25 00:43 123/71 05/15/25 23:34 36.5 C 89 18 130/75 98 Room Air Laboratory Results Abnormal lab results 05/15/25 05/15/25 05/16/25 Range/Units 11:54 15:50 06:11 RBC 3.06 L 3.30 L (4.20-5.40) M/uL Hgb 8.8 L 9.3 L (12.0-16.0) g/dl Hct 27.1 L 29.2 L (37.0-47.0) % MCHC 31.8 L (32.0-36.0) g/dL RDW Std Deviation 50.7 H 49.4 H (36.4-46.3) fL RDW Coeff of Fer 15.6 H 15.4 H (11.5-14.5) % Lymph # (Auto) 0.93 L (1.20-3.40) K/uL [facility] # (Auto) 0.84 H (0.11-0.59) K/uL Sodium 133 L 131 L (136-145) mmol/L AST 10 L (13-39) U/L ALT 5 L (7-52) U/L Albumin 3.2 L (3.4-5.0) gm/dl Lipase 5 L (11-82) U/L Urine Appearance (Clear) Ur Specific [place] > 1.030 H (1.000-1.030) Urine Protein (Negative) Urine Ketones (Negative) Urine Blood (Negative) Urine Nitrite (Negative) Ur Leukocyte Esterase (Negative) Urine Bacteria (Auto) 1+ H (Negative) Urine RBC (0-2) /hpf Urine WBC (0-5) /hpf Ur Epithelial Cells (0-2) /hpf Hyaline Casts Present A (None Presnt) /lpf 05/16/25 Range/Units Unknown RBC (4.20-5.40) M/uL Hgb (12.0-16.0) g/dl Hct (37.0-47.0) % MCHC (32.0-36.0) g/dL RDW Std Deviation (36.4-46.3) fL RDW Coeff of Fer (11.5-14.5) % Lymph # (Auto) (1.20-3.40) K/uL [facility] # (Auto) (0.11-0.59) K/uL Sodium (136-145) mmol/L AST (13-39) U/L ALT (7-52) U/L Albumin (3.4-5.0) gm/dl Lipase (11-82) U/L Urine Appearance Cloudy A (Clear) Ur Specific [place] (1.000-1.030) Urine Protein 3+ H (Negative) Urine Ketones 1+ H (Negative) Urine Blood 3+ H (Negative) Urine Nitrite Positive A (Negative) Ur Leukocyte Esterase Trace H (Negative) Urine Bacteria (Auto) (Negative) Urine RBC >20 H (0-2) /hpf Urine WBC 21-50 H (0-5) /hpf Ur Epithelial Cells 3-5 H (0-2) /hpf Hyaline Casts (None Presnt) /lpf Diagnostic Findings Venous Doppler Study 05/15/25 11:36 LEFT LOWER EXTREMITY VENOUS DOPPLER HISTORY: Acute pain and swelling of the left lower leg swelling, thigh pain, on hormones, hx CA COMPARISON STUDY: None. FINDINGS: Subcutaneous edema. Left inguinal chain lymph nodes are likely ph ysiologic measuring up to 8 mm in short axis. There is normal compressibility, flow, and augmentation within the left lower extremity deep venous system. IMPRESSION: No DVT within the left lower extremity. ACT 112: Negative or not required by law. Electronically signed by: Edgard Braxton M.D. 05/15/2025 1:25 PM Abdomen/Pelvis CT 05/15/25 12:55 CT SCAN OF THE ABDOMEN AND PELVIS WITH IV CONTRAST CLINICAL HISTORY: Cervical carcinoma. Left hip and thigh swelling. COMPARISON STUDY: 04/01/2025 TECHNIQUE: Following the IV administration of 94 cc of Optiray 320, CT scan of the abdomen and pelvis is performed from the lung bases to the proximal femora. Images are reviewed in the axial, sagittal, and coronal planes. IV contrast was administered without complication. A dose lowering technique was utilized adhering to the principles of ALARA. CT DOSE: FINDINGS: Lung bases: No pleural effusions are visualized. There is no basilar parenchymal consolidation. Liver: Subcentimeter hepatic hypodensities remain stable and likely represent small cysts. Gallbladder: Unremarkable in appearance Spleen: No splenic masses are visualized Pancreas: Pancreatic masses are visualized. Adrenal glands: No adrenal masses are visualized. Kidneys: No solid renal masses are visualized. There is been resolution of previously described left-sided hydronephrosis. There is a left-sided nephroureteral stent present. Abdominal vasculature: There is no evidence of abdominal aortic dilatation. The left renal vein is effaced by a retroperitoneal mass encases the aorta, likely representing pathologic adenopathy. The proximal iliac veins are difficult to visualize and are likely thrombosed. There is thrombus within the right renal vein IVC confluence. The infrarenal IVC appears occluded. The suprarenal inferior vena cava appears patent. Multiple perirenal venous collaterals are visualized. Bowel: The right colon is stool-filled and distended. The cecum measures 73 mm transversely. A discrete transition zone is not visualized. The findings likely represent ileus. The appendix is not visualized with certainty. Peritoneum: There is increased density of the peritoneal fat likely secondary to anasarca. There is also increased density in the subcutaneous fat throughout the abdomen and pelvis. Lymphadenopathy: There is a hypodense mass encasing the aorta measuring 4 x 3 x 10 cm. This is most consistent with adenopathy. Other pathologic entities not excluded. Pelvic viscera: There is a 1 cm fat-containing density within the right adnexa possibly ovarian. There is no uterine cavity dilatation. There is diffuse bladder wall thickening.. There is a left-sided ureteral stent within the bladder. Skeletal structures: There are no suspicious lytic or blastic skeletal lesions. IMPRESSION: 1. 10 x 4 x 3 cm hypodense mass encasing the abdominal aorta and proximal iliac vessels. Given history of cervical carcinoma this may represent a necrotic lymph node mass. Other etiologies not excluded with certainty 2. Effacement of the common iliac veins bilaterally. These may be thrombosed. 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 The infrarenal IVC appears occluded. The suprarenal IVC appears patent. Multiple venous collaterals are visualized likely secondary to the IVC occlusion. 3. Indwelling left-sided nephroureteral stent. Resolution of previously described left-sided hydronephrosis. 4. Diffuse bladder wall thickening 5. No evidence of bowel obstruction. Fecal retention with a cecum measuring 73 mm. ACT 112: Negative or not required by law. Electronically signed by: Preston Rice M.D. 05/15/2025 2:[address] 05/15/25 12:55 CT SCAN OF THE LEFT FEMUR WITH IV CONTRAST CLINICAL HISTORY: Left leg swelling. COMPARISON STUDY: No priors. TECHNIQUE: Following the IV administration of 94 cc of Optiray 320, CT scan of the left femur is performed from the bony pelvis to the knee. Images are reviewed in the axial, sagittal, and coronal planes. IV contrast wasn't ministered without complication. A dose lowering technique was utilized adhering to the principles of ALARA. Note that interpretation is suboptimal without plain film correlate. CT DOSE: 1196.03 mGy.cm FINDINGS: The skeletal structures are well-mineralized. There is no evidence of left femoral fracture. There is no avascular necrosis of the left femoral head. The hip and knee joints are grossly maintained. No lytic or blastic lesion is seen. Diffuse subcutaneous and deep soft tissue edema is identified throughout the left hip and thigh. Soft tissue edema is also seen in the partially imaged right thigh. No organized fluid collection is identified and no enhancing mass lesion is seen. There is a tiny popliteal cyst. No soft tissue gas is seen throughout the left leg. A distal end of a left ureteral stent is partially visualized. The bladder wall appears thickened. No left pelvic sidewall or left inguinal adenopathy is seen. The femoral vessels are patent as imaged. IMPRESSION: 1. No acute bony abnormality is seen involving the left femur. 2. Diffuse subcutaneous and deep soft tissue edema seen throughout the left hip and thigh. Correlate clinically. 3. No organized fluid collection is seen. 4. A left ureteral stent is partially imaged within the bladder lumen, and the visualized bladder wall appears thickened. Correlate with clinical findings and urinalysis. ACT 112: Negative or not required by law. Electronically signed by: Bal Robles M.D. 05/15/2025 2:[address] 05/15/25 12:55 CT hip LT w con HISTORY: 45 years-old Female hip/thigh swelling, chemotherapy, cervical CA acute pain and swelling of the left hip in a patient with history of cervical carcinoma COMPARISON: CT left femur of same day, CT abdomen and pelvis 04/01/2025 and 1 TECHNIQUE: Multiple axial CT images of the left hip were obtained with IV contrast. A dose lowering technique was used consistent with the principals of ALARA. FINDINGS: CT abdomen and pelvis dictated separately. A left ureteral stent is in place. Irregular urinary bladder wall thickening. Soft tissue thickening noted within the distribution of the cervix. Heterogeneity of the uterus. Trace free pelvic fluid. Left inguinal chain lymph nodes measure up to 10 mm. There is extensive diffuse subcutaneous edema throughout. No discrete fluid collection or soft tissue mass. No acute fracture, dislocation, osseous erosion or suspicious bone lesion. IMPRESSION: 1. Diffuse subcutaneous edema. Differential considerations include cellulitis, venous stasis or lymphedema. 2. No discrete fluid collection or soft tissue mass. 3. No acute osseous abnormality. 4. Nonspecific left inguinal lymphadenopathy. 5. CT abdomen and pelvis dictated separately. ACT 112: Negative or not required by law. The above report was generated using voice recognition software. It may contain grammatical, syntax or spelling errors. Electronically signed by: Edgard Braxton M.D. 05/15/2025 1:57 PM Medications Administered Current Inpatient Medications Acetaminophen (Acetaminophen 325 Mg Tab) 650 mg PO Q4H PRN PRN Reason: pain/fever Stop: 06/14/25 17:36 Al Hydrox/Mg Hydrox/Simethicone (Aluminum/Magnesium Susp 30 Ml Udc) 30 ml PO Q6H PRN PRN Reason: Dyspepsia Stop: 06/14/25 17:36 Enoxaparin Sodium (Enoxaparin Inj 40 Mg/0.4 Ml Syr) 40 mg SQ Q12H KENDRA Stop: 06/14/25 17:59 Last Admin: 05/16/25 05:35 Dose: 40 mg Fentanyl (Fentanyl 75 Mcg/Hr Tdsy) 1 patch TD Q72H KENDRA Stop: 05/29/25 16:14 Last Admin: 05/15/25 17:03 Dose: Not Given Heparin Sodium (Porcine) (Heparin 100 Unit/Ml 5ml Flush) 5 ml FLUSH PRN PRN PRN Reason: Flush Stop: 06/15/25 03:10 Hydromorphone HCl (Hydromorphone Hcl 2 Mg Tab) 4 mg PO Q4H PRN PRN Reason: Mod-Sev Pain (Scale 4-10) Stop: 05/29/25 18:14 Last Admin: 05/16/25 10:00 Dose: 4 mg Hydromorphone HCl (Hydromorphone Inj 1 Mg/Ml Syringe) 1 mg IV Q3H PRN PRN Reason: Pain Stop: 05/30/25 00:42 Last Admin: 05/16/25 07:47 Dose: 1 mg Magnesium Hydroxide (Magnesium Hydroxide Susp 30 Ml Udc) 30 ml PO Q6H PRN PRN Reason: Constipation Stop: 06/14/25 17:36 Melatonin (Melatonin 3 Mg Tab) 3 mg PO HS KENDRA Stop: 06/14/25 20:59 Last Admin: 05/15/25 20:45 Dose: 3 mg Miscellaneous (Desvenlafaxine Succinate 25 Mg Tablet Extended Release 24 Hr - Order Awaiting Action) 1 each N/A QS KENDRA Stop: 06/15/25 00:00 Last Admin: 05/16/25 07:31 Dose: Not Given Miscellaneous (Estradiol 0.01 % Cream- Order Awaiting Action) 1 each N/A QS KENDRA Stop: 06/15/25 00:00 Last Admin: 05/16/25 07:32 Dose: Not Given Miscellaneous (Fentanyl Patch Remove & Waste) 1 each N/A Q3D KENDRA Stop: 06/14/25 16:14 Last Admin: 05/15/25 17:03 Dose: Not Given Miscellaneous (Check Fentanyl Patch Placement) 1 each N/A QS KENDRA Stop: 06/15/25 00:00 Last Admin: 05/16/25 07:32 Dose: 1 each Miscellaneous (Progesterone Micronized 100 Mg - Order Awaiting Action) 1 each N/A QS KENDRA Stop: 06/15/25 00:00 Last Admin: 05/16/25 07:32 Dose: Not Given Ondansetron HCl (Ondansetron Inj 2 Mg/Ml 2 Ml Vial) 4 mg IV Q6H PRN PRN Reason: Nausea Stop: 06/14/25 17:36 Oxybutynin Chloride (Oxybutynin Chloride 5 Mg Tab) 5 mg PO DAILY KENDRA Stop: 06/15/25 08:59 Last Admin: 05/16/25 07:48 Dose: 5 mg Polyethylene Glycol (Polyethylene (Miralax) 17 Gm Pack) 17 gm PO DAILY PRN PRN Reason: Constipation Stop: 06/14/25 17:36 Sennosides (Senna 8.6 Mg Tab) 17.2 mg PO HS KENDRA Stop: 06/14/25 20:59 Last Admin: 05/15/25 20:44 Dose: 17.2 mg Tamsulosin HCl (Tamsulosin Hcl 0.4 Mg Cap) 0.4 mg PO QAM KENDRA Stop: 06/15/25 08:59 Last Admin: 05/16/25 07:48 Dose: 0.4 mg PG Care Time/CCT Total # of Minutes Spent Total Time Spent with Patient: Total time spent is greater than 50% in coordination of care (as documented) at patient's floor/unit and/or counseling patient: Advanced Care Planning 66239 Advanced Care Planning 30 [place] [address] IN/OBS CONSULT LVL 4,60M Patient Type New History Expanded Problem Focused Exam Expanded Problem Focused Medical Decision Making Moderate Complexity Diagnoses Cancer related pain G89.3 Palliative care by specialist Z51.5 Goals of care, counseling/discussion Z71.89 Additional Codes Advanced Care Planning - 63901 Advanced Care Planning 30 Min: 73633 Advanced Care Planning 30 Min ([id number])
[2025-05-16] MEDS ORDERED: ACETAMINOPHEN 500 MG TAB PO PRN (10:17)
[2025-05-16] MEDS: HYDROmorphone INJ 2 MG/ML SYR/VIAL IV PRN (11:56)
--- NOTE | 2025-05-16 16:38 | Hospitalist Progress Note ---
Date of Service May 16, 2025 Assessment & Plan (1) Metastasis from cervical cancer: (2) Cancer related pain: (3) IVC thrombosis: (4) Severe protein-calorie malnutrition: (5) Goals of care, counseling/discussion: Plan Patient with uncontrolled cancer pain need. Discussion with her about her management of her pain. She felt that the Bentyl patch was helping. Will increase to 100 mcg. Increase oral Dilaudid dose as well as frequency As needed IV Dilaudid for breakthrough pain Resume anticoagulation Patient does have a Ureteral stent present. This could explain the hematuria in the setting of anticoagulation. Will consider antibiotics pending urine culture. Patient does not seem to be symptomatic at this time. Palliative care consultation noted, ongoing discussions of goals of care Oncology consultation Family at bedside Admission and Anticipated Discharge Date Admission Date: May 15, 2025 Subjective Patient's significant amount of pain. She reports that her pain had not been well-controlled even at home. Had some hematuria overnight. Physical Exam Physical Exam: Constitutional: Alert, moderate distress due to pain, cachectic HEENT: Mucous membranes moist. Lungs: Clear to auscultation, decreased, no wheezes rales or rhonchi CV: S1-S2, regular Abdomen: Generalized tenderness Extremities: Ankle edema Neuro: No focal deficits Psych: Cooperative, normal mood Results & Data Results & Data Vital Signs (Past 12 Hours) Vital Signs Temp Pulse Resp BP Pulse Ox O2 Del Method 05/16/25 15:03 36.7 C 68 18 113/75 93 Room Air 05/16/25 07:30 Room Air 05/16/25 07:24 36.6 C 64 16 127/73 96 Room Air Diagnostic Findings Reviewed imaging, laboratory and diagnostic studies. Pertinent findings as below. Urinalysis reviewed, no bacteria seen some trace leukocyte esterase, positive nitrate, initial urine specimen pinpoint growth. WBCs 9.6 Hemoglobin 9.3
[2025-05-17] MEDS: HEPARIN 100 UNIT/ML 5ML FLUSH FLUSH PRN (02:55)
[2025-05-17] MEDS: POLYETHYLENE (MIRALAX) 17 GM PACK PO SCH (12:42)
--- NOTE | 2025-05-17 13:03 | Hospitalist Progress Note ---
Date of Service May 17, 2025 Assessment & Plan (1) Metastasis from cervical cancer: (2) Cancer related pain: (3) IVC thrombosis: (4) Severe protein-calorie malnutrition: (5) Goals of care, counseling/discussion: Plan Patient with metastatic cervical cancer uncontrolled pain Pain is somewhat better control than yesterday, increase the oral Dilaudid dose, anticipate fentanyl patch will be reaching peak effectiveness today. Spoke with Dr. Bass on the phone yesterday evening. States that patient options are limited. May be a candidate for some second line chemotherapy. He would be willing to discuss this with her in the office. Also recommended having patient evaluated by radiation oncology to see if she could benefit from any additional palliative radiation. Consult radiation oncology, communication with Dr. Keith will reevaluate patient today Discussed anticoagulation with the patient, she would prefer to be on a pill we will transition her to Eliquis Family at the bedside and updated to the patient's condition and plans of care Anticipate discharge tomorrow with ongoing follow-up outpatient Admission and Anticipated Discharge Date Admission Date: May 15, 2025 Subjective Patient reports that her pain is much better controlled. Still requiring some IV Dilaudid intermittently however Physical Exam Physical Exam: Constitutional: Alert, much less distressed due to pain compared to yesterday, cachectic HEENT: Mucous membranes moist. Lungs: Clear to auscultation, decreased, no wheezes rales or rhonchi CV: S1-S2, regular Abdomen: Soft, nontender, nondistended Extremities: No significant edema Neuro: No focal deficits Psych: Cooperative, normal mood Results & Data Results & Data Vital Signs (Past 12 Hours) Vital Signs Temp Pulse Resp BP Pulse Ox O2 Del Method 05/17/25 08:48 36.7 C 89 16 103/62 96 Room Air Diagnostic Findings Reviewed imaging, laboratory and diagnostic studies. Pertinent findings as below. Urine culture reviewed,
--- NOTE | 2025-05-17 13:49 | Palliative Care Progress Note ---
Date of Service May 17, 2025 Assessment & Plan (1) Cancer related pain: Plan: pt. c/o intractable abd/pelvic/lumbar pain which is interfering with ADLs and sleep. She shared that prior to admission her pain was poorly controlled with 75 mcg Fentanyl patch and Dilaudid 4 mg PO for BTP. Pt shared she is requiring dilaudid q4h most days due to intractable pain which is worse at night than in daytime. Discussed with Dr Russo, pain will continue to be managed as per primary team. (2) Palliative care by specialist: Plan: Palliative care will continue to follow for ongoing ACP discussions and patient/family support. (3) Goals of care, counseling/discussion: Plan: Today, 05/17: Met with pt at bedside this morning from 10:00 - 10:30, no visitors present. Luanne was able to review admission course and previous GOC discussions. She shared that her decisions on GOC are pending rad-onc and med- onc input re: cancer staging, prognostication and treatment options. She shared awareness that her prognosis might be poor but she wants to exhaust every possible treatment option. We discussed code status and helped Luanne understand that CPR is only done after a person has and involves uncomfortable and invasive procedures that, if successful. have high risk of multiple complications including but not limited to rib fractures, pneumo/hemothorax, GLENN, ventilator dependence, anoxic brain injury, and door builder/permanent cognitive and functional deficits. uLanne shared that she would not want to be kept alive on machines and if her time comes that she would prefer to be at home. She shared that she would not wish to be resuscitated, but would like to discuss with her spouse before making any changes in level of care. 05/16:Spoke with pt and multiple family members, including her mother and her spouse from 10:15 - 10:45 to discuss pt values and goals of care. This meeting was necessary for determining the appropriate course of treatment. We discussed at length the patient's acute and chronic medical conditions, general prognosis, and goals of care. Patient and her family expressed confusion with new findings of mass encasing the abdominal aorta and proximal iliac vessels, explaining that they were under impression that her cancer was responding well to treatment. Pt's mother and sister had many questions re: response to previous cancer treatments, further chemo/radiation treatment options, possible vascular surgery or options for tumor resection. Patient shared that her last diagnostic scans were in January and she was told that the tumors were smaller. Her mother questioned if stopping chemotherapy had allowed this to happen. We discussed the multifactorial and unpredictable nature of cancer progression and encouraged discussion of treatment options with Oncology team, consult has been ordered by primary team. We discussed possible complications r/t decreased blood flow to/from her lower extremities. Pt's mother suggested that exercise might improve her blood flow and prevent these complications. Helped them understand that the occlusion caused by tumor burden is unlikely to be affected by exercise, but encouraged mobility as able to promote overall health. We discussed overall poor prognosis given current hematuria iso IVC thrombus / abdominal aorta mass requiring anticoagulation to prevent further complications. Given pt's decompensated health and poor prognosis, discussed code status and helped them understand that CPR is only done after a person has and involves uncomfortable and invasive procedures that, if successful. have high risk of multiple complications including but not limited to rib fractures, pne umo/hemothorax, GLENN, ventilator dependence, anoxic brain injury, and custodial/permanent cognitive and functional deficits. The patient had minimal participation in discussion, but she did share u nderstanding and stated she had no questions at this time. Pt shared that she needs some time to think about all of this and discuss with her oncology team and spouse before deciding how to proceed. Pt would like to revisit [facility] after she has had opportunity to discuss with oncology. Will revisit tomorrow. Plan as above Admission and Anticipated Discharge Date Admission Date: May 15, 2025 Review of Systems Constitutional: + fatigue Gastrointestinal: + abdominal pain Musculoskeletal: + back pain Physical Exam Constitutional: + acute distress, + ill appearing, + cac hectic and cooperative Eyes: PERRL, conjunctivae normal, anicteric sclerae ENMT: external ear and nose normal, oropharynx normal Respiratory: normal respiratory effort, lungs clear to auscultation Cardiovascular: Rate/Rhythm: regular rate and + tachycardic Heart Sounds: normal S1 and normal S2 Extremities: + edema Gastrointestinal (Abdomen): Inspection/Auscultation: normal bowel sounds Percussion/Palpation: + abdomen tender Musculoskeletal: no cyanosis or clubbing, extremities motor strength 5/5 Neurologic: PERRL, EOMI, accommodation nl, no face palsy, no dysarthria Psychiatric: A+Ox3, euthymic affect Results & Data Vital Signs (Past 12 Hours) Vital Signs Temp Pulse Resp BP Pulse Ox O2 Del Method 05/17/25 08:48 36.7 C 89 16 103/62 96 Room Air Diagnostic Findings Venous Doppler Study 05/15/25 11:36 LEFT LOWER EXTREMITY VENOUS DOPPLER HISTORY: Acute pain and swelling of the left lower leg swelling, thigh pain, on hormones, hx CA COMPARISON STUDY: None. FINDINGS: Subcutaneous edema. Left inguinal chain lymph nodes are likely physiologic measuring up to 8 mm in short axis. There is normal compressibility, flow, and augmentation within the left lower extremity deep venous system. IMPRESSION: No DVT within the left lower extremity. ACT 112: Negative or not required by law. Electronically signed by: Edgard Braxton M.D. 05/15/2025 1:25 PM Abdomen/Pelvis CT 05/15/25 12:55 CT SCAN OF THE ABDOMEN AND PELVIS WITH IV CONTRAST CLINICAL HISTORY: Cervical carcinoma. Left hip and thigh swelling. COMPARISON STUDY: 04/01/2025 TECHNIQUE: Following the IV administration of 94 cc of Optiray 320, CT scan of the abdomen and pelvis is performed from the lung bases to the proximal femora. Images are reviewed in the axial, sagittal, and coronal planes. IV contrast was administered without complication. A dose lowering technique was utilized adhering to the principles of ALARA. CT DOSE: FINDINGS: Lung bases: No pleural effusions are visualized. There is no basilar parenchymal consolidation. Liver: Subcentimeter hepatic hypodensities remain stable and likely represent small cysts. Gallbladder: Unremarkable in appearance Spleen: No splenic masses are visualized Pancreas: Pancreatic masses are visualized. Adrenal glands: No adrenal masses are visualized. Kidneys: No solid renal masses are visualized. There is been resolution of previously described left-sided hydronephrosis. There is a left-sided nephroureteral stent present. Abdominal vasculature: There is no evidence of abdominal aortic dilatation. The left renal vein is effaced by a retroperitoneal mass encases the aorta, likely representing pathologic adenopathy. The proximal iliac veins are difficult to visualize and are likely thrombosed. There is thrombus within the right renal vein IVC confluence. The infrarenal IVC appears occluded. The suprarenal inferior vena cava appears patent. Multiple perirenal venous collaterals are visualized. Bowel: The right colon is stool-filled and distended. The cecum measures 73 mm transversely. A discrete transition zone is not visualized. The findings likely represent ileus. The appendix is not visualized with certainty. Peritoneum: There is increased density of the peritoneal fat likely secondary to anasarca. There is also increased density in the subcutaneous fat throughout the abdomen and pelvis. Lymphadenopathy: There is a hypodense mass encasing the aorta measuring 4 x 3 x 10 cm. This is most consistent with adenopathy. Other pathologic entities not excluded. Pelvic viscera: There is a 1 cm fat-containing density within the right adnexa possibly ovarian. There is no uterine cavity dilatation. There is diffuse bladder wall thickening.. There is a left-sided ureteral stent within the bladder. Skeletal structures: There are no suspicious lytic or blastic skeletal lesions. IMPRESSION: 1. 10 x 4 x 3 cm hypodense mass encasing the abdominal aorta and proximal iliac vessels. Given history of cervical carcinoma this may represent a necrotic lymph node mass. Other etiologies not excluded with certainty 2. Effacement of the common iliac veins bilaterally. These may be thrombosed. 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 The infrarenal IVC appears occluded. The suprarenal IVC appears patent. Multiple venous collaterals are visualized likely secondary to the IVC occlusion. 3. Indwelling left-sided nephroureteral stent. Resolution of previously described left-sided hydronephrosis. 4. Diffuse bladder wall thickening 5. No evidence of bowel obstruction. Fecal retention with a cecum measuring 73 mm. ACT 112: Negative or not required by law. Electronically signed by: Preston Rice M.D. 05/15/2025 2:[address] 05/15/25 12:55 CT SCAN OF THE LEFT FEMUR WITH IV CONTRAST CLINICAL HISTORY: Left leg swelling. COMPARISON STUDY: No priors. TECHNIQUE: Following the IV administration of 94 cc of Optiray 320, CT scan of the left femur is performed from the bony pelvis to the knee. Images are reviewed in the axial, sagittal, and coronal planes. IV contrast wasn't ministered without complication. A dose lowering technique was utilized adhering to the principles of ALARA. Note that interpretation is suboptimal without plain film correlate. CT DOSE: 1196.03 mGy.cm FINDINGS: The skeletal structures are well-mineralized. There is no evidence of left femoral fracture. There is no avascular necrosis of the left femoral head. The hip and knee joints are grossly maintained. No lytic or blastic lesion is seen. Diffuse subcutaneous and deep soft tissue edema is identified throughout the left hip and thigh. Soft tissue edema is also seen in the partially imaged right thigh. No organized fluid collection is identified and no enhancing mass lesion is seen. There is a tiny popliteal cyst. No soft tissue gas is seen throughout the left leg. A distal end of a left ureteral stent is partially visualized. The bladder wall appears thickened. No left pelvic sidewall or left inguinal adenopathy is seen. The femoral vessels are patent as imaged. IMPRESSION: 1. No acute bony abnormality is seen involving the left femur. 2. Diffuse subcutaneous and deep soft tissue edema seen throughout the left hip and thigh. Correlate clinically. 3. No organized fluid collection is seen. 4. A left ureteral stent is partially imaged within the bladder lumen, and the visualized bladder wall appears thickened. Correlate with clinical findings and urinalysis. ACT 112: Negative or not required by law. Electronically signed by: Bal Robles M.D. 05/15/2025 2:[address] 05/15/25 12:55 CT hip LT w con HISTORY: 45 years-old Female hip/thigh swelling, chemotherapy, cervical CA acute pain and swelling of the left hip in a patient with history of cervical carcinoma COMPARISON: CT left femur of same day, CT abdomen and pelvis 04/01/2025 and 05/15/2025 TECHNIQUE: Multiple axial CT images of the left hip were obtained with IV contra st. A dose lowering technique was used consistent with the principals of [place]. FINDINGS: CT abdomen and pelvis dictated separately. A left ureteral stent is in place. Irregular urinary bladder wall thickening. Soft tissue thickening noted within the distribution of the cervix. Heterogeneity of the uterus. Trace free pelvic fluid. Left inguinal chain lymph nodes measure up to 10 mm. There is extensive diffuse subcutaneous edema throughout. No discrete fluid collection or soft tissue mass. No acute fracture, dislocation, osseous erosion or suspicious bone lesion. IMPRESSION: 1. Diffuse subcutaneous edema. Differential considerations include cellulitis, venous stasis or lymphedema. 2. No discrete fluid collection or soft tissue mass. 3. No acute osseous abnormality. 4. Nonspecific left inguinal lymphadenopathy. 5. CT abdomen and pelvis dictated separately. ACT 112: Negative or not required by law. The above report was generated using voice recognition software. It may contain grammatical, syntax or spelling errors. Electronically signed by: Edgard Braxton M.D. 05/15/2025 1:57 PM Medications Administered Current Inpatient Medications Acetaminophen (Acetaminophen 500 Mg Tab) 1,000 mg PO TID PRN PRN Reason: Mild pain 1-3/fever Stop: 06/14/25 17:36 Al Hydrox/Mg Hydrox/Simethicone (Aluminum/Magnesium Susp 30 Ml Udc) 30 ml PO Q6H PRN PRN Reason: Dyspepsia Stop: 06/14/25 17:36 Apixaban (Apixaban 5 Mg Tablet) 10 mg PO BID KENDRA Stop: 05/24/25 09:01 Fentanyl (Fentanyl 100 Mcg/Hr Tdsy) 1 patch TD Q3D KENDRA Stop: 05/30/25 10:29 Last Admin: 05/16/25 10:46 Dose: 1 patch Heparin Sodium (Porcine) (Heparin 100 Unit/Ml 5ml Flush) 5 ml FLUSH PRN PRN PRN Reason: Flush Stop: 06/15/25 03:10 Last Admin: 05/17/25 06:14 Dose: 5 ml Hydromorphone HCl (Hydromorphone Hcl 2 Mg Tab) 8 mg PO Q3H PRN PRN Reason: Mod-Sev Pain (Scale 4-10) Stop: 05/29/25 18:14 Last Admin: 05/17/25 12:42 Dose: 8 mg Hydromorphone HCl (Hydromorphone Inj 2 Mg/Ml Syr/Vial) 2 mg IV Q1H PRN PRN Reason: severe/breakthrough pain Stop: 05/30/25 10:23 Magnesium Hydroxide (Magnesium Hydroxide Susp 30 Ml Udc) 30 ml PO Q6H PRN PRN Reason: Constipation Stop: 06/14/25 17:36 Melatonin (Melatonin 3 Mg Tab) 3 mg PO HS KENDRA Stop: 06/14/25 20:59 Last Admin: 05/16/25 20:04 Dose: 3 mg Miscellaneous (Fentanyl Patch Remove & Waste) 1 each N/A Q3D KENDRA Stop: 06/15/25 10:29 Last Admin: 05/16/25 10:45 Dose: 1 each Miscellaneous (Check Fentanyl Patch Placement) 1 each N/A QS KENDRA Stop: 06/15/25 15:59 Last Admin: 05/17/25 09:12 Dose: 1 each Ondansetron HCl (Ondansetron Inj 2 Mg/Ml 2 Ml Vial) 4 mg IV Q6H PRN PRN Reason: Nausea Stop: 06/14/25 17:36 Oxybutynin Chloride (Oxybutynin Chloride 5 Mg Tab) 5 mg PO DAILY KENDRA Stop: 06/15/25 08:59 Last Admin: 05/17/25 09:12 Dose: 5 mg Polyethylene Glycol (Polyethylene (Miralax) 17 Gm Pack) 17 gm PO DAILY KENDRA Stop: 06/16/25 10:44 Last Admin: 05/17/25 12:42 Dose: 17 gm Sennosides (Senna 8.6 Mg Tab) 17.2 mg PO HS KENDRA Stop: 06/14/25 20:59 Last Admin: 05/16/25 20:04 Dose: 17.2 mg Tamsulosin HCl (Tamsulosin Hcl 0.4 Mg Cap) 0.4 mg PO QAM KENDRA Stop: 06/15/25 08:59 Last Admin: 05/17/25 09:12 Dose: 0.4 mg PG Care Time/CCT Total # of Minutes Spent Total Time Spent with Patient: Total time spent is greater than 50% in coordination of care (as documented) at patient's floor/unit and/or counseling patient: Advanced Care Planning 51704 Advanced Care Planning 30 Min C[place] [address] SUB INP/OBS CARE 2/35MIN Patient Type Established History Expanded Problem Focused Medical Decision Making Moderate Complexity Diagnoses Cancer related pain G89.3 Palliative care by specialist Z51.5 Goals of care, counseling/discussion Z71.89 Additional Codes Advanced Care Planning - 49297 Advanced Care Planning 30 Min: 11420 Advanced Care Planning 30 Min ([id number])
[2025-05-17] MEDS: HYDROmorphone INJ 2 MG/ML SYR/VIAL IV PRN (14:02)
--- NOTE | 2025-05-17 15:25 | Radiation OncologyConsultation ---
Date of Consultation May 17, 2025 Assessment & Plan (1) Squamous cell carcinoma of cervix: Plan Assessment: Ms. Farrell is a 45-year-old female who presents with locally advanced cervical cancer treated with chemotherapy and radiation therapy which completed in in September 2024. The patient then went on to receive [id number] brachytherapy at [facility] which completed in October 2024. The patient has been on Keytruda under the supervision of Dr. Bass. Dr. Bass had ordered repeat staging workup with a PET/CT scan which the patient was unable to complete due to increased progressive discomfort and inability to lie flat for an extended period of time. The patient's pain had progressed enough that she presented to the emergency room and has been admitted. The patient did have a CT of abdomen/pelvis which does suggest potential progression of disease involving retroperitoneal lymph nodes. We have been asked to evaluate the patient regarding further recommendations and treatment options. Recommendation: No plan for radiation therapy at this point. Recommendation is to complete the staging workup with a PET/CT in the outpatient setting to understand the patient's overall extent of disease. Following the PET/CT results, the patient should be evaluated by both medical oncology as well as gynecology oncology. Of note, there may be significant overlap with the potential new disease from her previous course of radiation therapy which partially covered the paraaortic lymph nodes. Plan: 1. No plan for radiation therapy. 2. Patient should proceed with PET/CT scan in the outpatient setting. Patient may require medication to be comfortable for the scan. 3. Pain management as per primary medical team. 4. Follow-up with medical oncology in the outpatient setting. 5. Follow-up with gynecology oncology in the outpatient setting. 6. Patient may be referred back to us at appropriate time if radiation therapy is recommended. 7. Palliative care input is also appreciated. 8. Patient and authorized individuals are encouraged to call us with any further questions or concerns. History of Present Illness Attending Physician: Dean Russo DO History of Present Illness 06/08/2024. Gynecology visit. Patient has been having constant light spotting over the past 6 months. She will have a regular period that lasts 3 to 5 days. Bleeding can be heavy at times. She has cramping every day. She will take Aleve. Increase in vaginal discharge and odor. 06/08/2024. Pap smear.. Adequacy: Satisfactory for evaluation; no transformation zone component identified. Interpretation: Epithelial cell abnormality: High-grade squamous intraepithelial lesion (HSIL,[facility]). The process may involve the endocervix. AUTOMATED REVIEW: [employer] Point computerized screening device (quintile 1, review). NOTE: Positive HPV results noted below. Recommend clinical correlation and correlation withcurrent management guidelines. 06/23/2024. Pelvic ultrasound. 1. Lower uterine segment mass is indeterminate for a fat containing fibroid versus other lesion. Pelvic MRI with and without contrast should be considered. 2. Small anterior uterine body fibroid. 07/20/2024. Pelvic MRI. 1. Solid 6.1 cm mass centered in the cervix and lower uterine segment, for which the differential diagnosisincludes malignancy. 2. Enlarged left external iliac lymph node measuring 1.3 cm in short axis. 07/25/2024. Gynecology follow-up. High-grade squamous intraepithelial lesion on Pap smear of cervix. Abnormal uterine bleeding. Cervical mass. Exam showed cervix with distorted appearance. Necrotic appearing mass on the right endocervix, friable approximately 3 cm. Dense acetowhitening with mosaicism at 1:00, 6:00 and 9:00. Colposcopy and biopsy obtained. Path report reveals: A. Endometrium, biopsy: -- Fragments of necrotic squamous cell carcinoma. -- Endometrial tissue not identified. -- Fragments of necrotic squamous cell carcinoma. C. Cervix, 1 o'clock, biopsy: -- Squamous mucosa with invasive squamous cell carcinoma, moderately differentiated. D. Cervix, 6 o'clock, biopsy: -- Necrotic tissue and fragments of invasive squamous cell carcinoma, moderately differentiated. E. Cervix, 9 o'clock, biopsy: -- Squamous mucosa with invasive squamous cell carcinoma, moderately differentiated. -- See comment. Comment: HPV in situ hybridization results will be reported in a procedures addendum. 08/02/2024. Gynecologic oncologist consultation (Dr. Abarca). Patient has not a candidate for surgery and will likely require chemoradiation for locally advanced disease. Stage III C1 she is not a candidate due to the size of the tumor. Head CT was ordered. Planning external beam therapy closer to home and brachytherapy at [facility]. 08/10/2024. PET/CT. 1. Intensely hypermetabolic cervical mass, consistent with biopsy proven malignancy. Local invasion in better assessed on recent pelvic MRI. However, concern for left ureteral involvement given stasis of excreted radiotracer throughout the left collecting system without hydronephrosis. 2. Hypermetabolic shelby metastases in the pelvic sidewalls. 3. Small but mildly active soft tissue nodule in the fat anterior to the uterus may represent an additional nodeor peritoneal implant. 08/16/2024. Radiation oncology consultation. Patient is symptomatic with some pelvic discomfort in addition to some vaginal discharge and bleeding. Recommendation is pelvic radiation therapy and chemotherapy followed by HDR brachytherapy at [facility]. 09/06/2024 - 10/12/2024. Pelvic chemotherapy and radiation therapy ([facility]). 10/31/2024. Completed 4 high-dose radiation therapy treatments at [facility]. Tandem/ovoid HDR brachytherapy. 12/06/2024. Continues on maintenance Keytruda. 05/09/2025. Medical oncology follow-up. Dr. Bass. Recommendations obtain PET/CT scan. Continue Keytruda. 05/15/2025. Patient admitted to [facility] due to significant back pain and swelling in the hips. 05/15/2025. CT of abdomen/pelvis. 1. 10 x 4 x 3 cm hypodense mass encasing the abdominal aorta and proximal iliac vessels. Given history of cervical carcinoma this may represent a necrotic lymph node mass. Other etiologies not excluded with certainty 2. Effacement of the common iliac veins bilaterally. These may be thrombosed. 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 The infrarenal IVC appears occluded. The suprarenal IVC appears pa tent. Multiple venous collaterals are visualized likely secondary to the IVC occlusion. 3. Indwelling left-sided nephroureteral stent. Resolution of previously described left-sided hydronephrosis. 4. Diffuse bladder wall thickening 5. No evidence of bowel obstruction. Fecal retention with a cecum measuring 73 mm. 05/15/2025. CT femur. 1. No acute bony abnormality is seen involving the left femur. 2. Diffuse subcutaneous and deep soft tissue edema seen throughout the left hip and thigh. Correlate clinically. 3. No organized fluid collection is seen. 4. A left ureteral stent is partially imaged within the bladder lumen, and the visualized bladder wall appears thickened. Correlate with clinical findings and urinalysis. 05/15/2025. CT hip. 1. Diffuse subcutaneous edema. Differential considerations include cellulitis, venous stasis or lymphedema. 2. No discrete fluid collection or soft tissue mass. 3. No acute osseous abnormality. 4. Nonspecific left inguinal lymphadenopathy. 5. CT abdomen and pelvis dictated separately. 05/16/2025. Palliative care consultation. 05/17/2025. Radiation oncology consultation. No plan for radiation therapy. Patient should have PET/CT completed outpatient setting. Patient will follow-up with medical oncology. Allergies Allergy/AdvReac Type Severity Reaction Status Date / Time No Known Allergies Allergy Verified 05/15/25 15:00 Home Medications Medication Instructions Recorded Confirmed Type hydromorphone 4 mg tablet 4 mg PO .Q6-8H PRN Pain 10/02/24 05/15/25 History estradiol 0.01% (0.1 mg/gram) 1 applic vaginal 3XWK 02/24/25 05/15/25 History vaginal cream progesterone micronized 100 mg 100 mg PO QAM 02/24/25 05/15/25 History capsule lactobacillus combination no.4 3 3,000 mmu cells PO DAILY 03/06/25 05/15/25 History billion cell capsule (Probiotic) magnesium citrate 100 mg capsule 100 mg PO DAILY 03/06/25 05/15/25 History sennosides 8.6 mg tablet (senna) 17.2 mg PO HS 03/06/25 05/15/25 History phenazopyridine 100 mg tablet 100 mg PO TID PRN dysuria #10 tabs 03/09/25 10/2 08/19 Rx (Pyridium) fentanyl 75 mcg/hr transdermal 75 mcg transdermal Q72H 04/01/25 05/15/25 History patch lactulose 10 gram/15 mL oral 15 ml PO Q8H PRN if no bowel 04/01/25 05/15/25 Hist ory solution (Constulose) movement in 3 days oxybutynin chloride 5 mg tablet 5 mg PO DAILY 04/01/25 05/15/25 History tamsulosin 0.4 mg capsule 0.4 mg PO QAM 04/01/25 05/15/25 History desvenlafaxine succinate 25 mg 25 mg PO QAM 05/15/25 05/15/25 History tablet,extended release 24 hr melatonin 3 mg disintegrating 3 mg PO HS 05/15/25 05/15/25 History tablet meloxicam 15 mg tablet 15 mg PO QAM 05/15/25 05/15/25 History sulfamethoxazole 400 1 tab PO QAM 05/15/25 05/15/25 History mg-trimethoprim 80 mg tablet Patient History Medical History Severe protein-calorie malnutrition Tobacco use Neoplasm causing mass effect on adjacent structures Hyponatremia Hydronephrosis Pelvic mass Surgical History Status post cystoscopy with ureteral stent placement Status post colposcopy History of knee surgery Removal of Spaulding's cyst - right Family History Mother No problems noted. Father , 42yo Cerebral aneurysm S/p nephrectomy Brother No problems noted. Brother No problems noted. Sister Twin Pts twin sister Son No problems noted. Daughter No problems noted. 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 FIGO Stage IIIC1. Treatment: 10/16/2024. Status post completion of combined external beam radiation therapy with chemotherapy. 10/31/2024. Completed 4 high-dose radiation therapy treatments at [facility]. Tandem/ovoid HDR brachytherapy. 12/06/2024. Continues on maintenance Keytruda. Physical Exam Physical Exam: Family member was present for examination. Constitutional: WD/WN, vitals as above Skin: + rash (posterior leg. isolated. ); no s kin atrophy Psychiatric: A+Ox3, euthymic affect Time Spent Attending I spent 20 minutes in preparation for this consultation including reviewing all the clinical records, reviewing laboratory studies, pathology reports and imaging results. I spent 25 minutes with direct face to face interaction with the patient and/or family including performing a physical exam and answering all questions. I spent 20 minutes documenting this patient's visit. PG Care Time/CCT Total # of Minutes Spent Total Time Spent with Patient: Total time spent is greater than 50% in coordination of care (as documented) at patient's floor/unit and/or counseling patient: Coding Level of Care Code 51417 IN/OBS CONSULT LVL 4,60M Diagnoses Squamous cell carcinoma of cervix C53.9
[2025-05-17] MEDS: APIXABAN 5 MG TABLET PO SCH (20:26)
[2025-05-18 06:00] LABS: Hematocrit (blood only) 27.3 % (37.0-47.0); Hemoglobin 8.7 g/dl (12.0-16.0); Mean Corpuscular Hemoglobin 27.9 pg (25.0-34.0); Mean Corpuscular Volume 87.5 fL (80.0-100.0); Platelet Count 247 K/uL (130-400); RDW Standard Deviation 48.5 fL (36.4-46.3); Red Blood Count 3.12 M/uL (4.20-5.40); White Blood Count 7.53 K/ul (4.8-10.8)
[2025-05-18 06:14] LABS: Anion Gap 9.0 (3-11); Blood Urea Nitrogen 11.0 mg/dl (6-23); Calcium 9.2 mg/dl (8.6-10.3); Carbon Dioxide 24.0 mmol/L (21-32); Chloride 97.0 mmol/L (98-107); Creatinine Clr Calc Pharmacy 75.4 ml/min; Glucose 115.0 mg/dl (70-99(Fasting)); Potassium 4.2 mmol/L (3.5-5.1); Sodium 130.0 mmol/L (136-145)
[2025-05-18] MEDS: MAGNESIUM HYDROXIDE SUSP 30 ML UDC PO PRN (08:19)
--- NOTE | 2025-05-18 11:18 | Palliative Family Discussion ---
Date of Service May 18, 2025 Patient Directed Conference Time of Meetin:30 - 09:00 Participants: Bambi Glez AGACNP Patient participation: yes Patient Support System: spouse, mother, large support network Other Healthcare Provider Participation: None Meeting Location: bedside Advanced Directive available: no If yes, descriptors: The patient's surrogate medical decision maker participated: no Legally authorized health care proxy: n/a Other surrogate: Per PA [id number], in absence of written documentation of patient wishes, pt's proxy for medical decisions would be her spouse. A family meeting was held for Luanne Farrell. This meeting was necessary for determining the appropriate course of treatment. Topics of Discussion Topics of Discussion: 1. Opportunity given for participants to speak and ask questions. 2. Participants were assured of attention to patient comfort. 3. Reassurance provided. 4. Support was provided for informed, good-bindu decisions. 5. Emotions expressed by family were acknowledged and addressed. 6. Follow-up Outpatient: f/u with Dr. Bass, PET scan scheduled for 05/29 7. Plan of Care: DNR/DNI, continue all other life prolonging treatments Met with Luanne today to readdress [facility] discussion, reinforced information shared in previous meeting, pt verbalized understanding. She shared that she met with rad-onc yesterday and has a PET scan scheduled for 05/29/24 to determine progression/staging of her cancer. She expressed concern for ability to lie flat for scan given her positional increase in pain but shared that Dr. Bass has previously had her premedicated by tech. She shared that her pain is better managed but is hopeful to stay in hospital for another night given the recent adjustment in medications. We revisited discussion of code status reinforcing that CPR is only done after a person has and involves uncomfortable and invasive procedures that, if successful have high risk of multiple complications including but not limited to rib fractures, pneumo/hemothorax, GLENN, ventilator dependence, anoxic brain injury, and detention/permanent cognitive and functional deficits. Pt verified that she would not want mechanical ventilation nor resuscitation. She requests change in code status to DNR/DNI. Discussed importance of POLST form to ensure protection from resuscitation/unwanted medical procedures in event of her . Code status change entered in chart and POLST form completed and placed on chart. Original POLST should be sent home with patient at discharge. Time Involved in Meeting: I spent 50 minutes overall addressing this case: 5 in medical data review/discussion with referring provider(s) and/or preparation for the visit 30 in direct interaction with the patient 30 Advance Care Planning/Goals of Care discussions as detailed above in note (must be >16min) 5 in subsequent review and synthesis of assessment and plan 10 in communicating with other providers regarding the patient's case: attending, SANDY, CM
[2025-05-18 14:29] VITALS: O2SAT 100
[2025-05-18] MEDS: MoRPHine SULFATE CR 60 MG TABCR PO SCH (14:37)
--- NOTE | 2025-05-18 15:46 | Hospitalist Progress Note ---
Date of Service May 18, 2025 Assessment & Plan (1) Metastasis from cervical cancer: (2) Cancer related pain: (3) IVC thrombosis: (4) Severe protein-calorie malnutrition: (5) Goals of care, counseling/discussion: Plan Patient with difficult to control cancer pain. Discussed with patient that I believe fentanyl patch is not giving her the pain control that she requires. It works better if there is some subcutaneous adipose tissue to help absorb the pain medication. She does not have any of this tissue. We discussed about switching her to long-acting MS Contin. She was agreeable to this plan. Calculated patient's 24-hour morphine oral equivalent: Dilaudid IV 10 lu=413 mg morphine Fentanyl patch 100 mcg/24h= 240 mg morphine Dilaudid p.o. 38 mg= 38 mg morphine Patient above calculations start MS Contin 120 mg p.o. 3 times daily, increase Dilaudid 10 mg p.o. every 4 hours for breakthrough pain. Discontinue fentanyl patch Discontinue IV Dilaudid, working towards pain management plan that she can do at home Continue bowel regimen Continue Eliquis Palliative care working on POLST/advance directives. Case management working on coordinating home palliative care that can transition to hospice care when appropriate Admission and Anticipated Discharge Date Admission Date: May 15, 2025 Subjective Patient states her pain is better controlled but still very hesitant about going home and being able to manage her pain at home. Had good conversation with palliative care team today. Physical Exam Physical Exam: Constitutional: Alert, cachectic, chronically ill, but improved compared to admission now that pain is controlled and able to shower HEENT: Mucous membranes moist. Lungs: Clear to auscultation, decreased, no wheezes rales or rhonchi CV: S1-S2, regular Abdomen: Soft, nontender, nondistended Extremities: No significant edema Neuro: No focal deficits Psych: Cooperative, normal mood Results & Data Results & Data Vital Signs (Past 12 Hours) Vital Signs Temp Pulse Resp BP Pulse Ox O2 Del Method 05/18/25 14:28 102 H 15 104/68 100 Room Air 05/18/25 08:32 36.7 C 77 15 110/69 93 Room Air Diagnostic Findings Reviewed imaging, laboratory and diagnostic studies. Pertinent findings as below. Hemoglobin 8.7 Electrolytes stable
[2025-05-19 08:18] VITALS: BP 108/71; PULSE 90; RESP 18; TEMP 97.9
[2025-05-19] MEDS: DOCUSATE SODIUM 100 MG CAP PO SCH (09:36)
[2025-05-19] MEDS: SENNA 8.6 MG TAB PO SCH (09:36)
[2025-05-19] MEDS: LACTULOSE SYRUP 20 GM/30 ML UDC PO STA (09:37)
[2025-05-19] MEDS: POLYETHYLENE (MIRALAX) 17 GM PACK PO SCH (09:38)
--- NOTE | 2025-05-19 10:35 | Discharge Summary ---
Discharge Summary Date of Service May 19, 2025 Principal Dx & Hospital Course #1 = Principal Diagnosis (1) Metastasis from cervical cancer: (2) Cancer related pain: (3) IVC thrombosis: (4) Severe protein-calorie malnutrition: (5) Goals of care, counseling/discussion: Plan Patient is a 44-year-old female with known metastatic cervical cancer has undergone chemotherapy and radiation therapy. She currently being maintained on Keytruda. At her last oncology visit this appears as though she was stabilizing and may be seeing some improvement. Came to the emergency room with increasing back pain and hip pain. Complaining of some swelling in bilateral hips and seem to be declining. In the emergency room imaging was consistent with pelvic vein and IVC thrombosis and evidence of tumor in the abdomen surrounding the aorta. Patient was admitted to the hospital for control of her cancer related pain. She was started initially on Lovenox for her IVC thrombosis. She was eventually transition to Eliquis. She was having some minor hematuria. After discussion decided that the risks of being off anticoagulation outweighed the benefits and her bleeding was not excessive. With CT findings concerned there may be some metastasis in the bladder. Palliative care consultation was obtained. Patient underwent further imaging of her hips and femurs due to the swelling. There was no fracture. It was determined that this was edema from third spacing due to her poor nutrition. Her pain medications were titrated. Ultimately after determining the amount of medication I was getting her some relief her pain regimen was switched to oral MS Contin and oral Dilaudid short acting for breakthrough pain. The fentanyl patch was discontinued. With this change her pain became much better controlled. She was put on aggressive bowel regimen. Through our conversation with palliative care she did choose to become a DNR DNI. She also was put in contact with [facility]. Is anticipated that she will eventually transition to their care. Radiation oncology consult was obtained. She was not deemed a candidate for any radiation therapy at this time. Phone conversation with outpatient oncologist indicated that her options were limited for any type of chemotherapy but would review any potential options with her in the office. Coordinate outpatient follow-up appointments with her specialist. On the day of discharge pain control to manageable at home. Also coordinate of PET scan for her in the upcoming weeks to really more fully evaluate her metastatic disease. Notes For Next Care Provider Continue to work with hospice as she transitions her care Follow-up with specialist as coordinated Medication Changes From Visit Fentanyl patch discontinued MS Contin 3 times daily Dilaudid short acting dose increased Admission HPI Per Admitting Provider Ms. Farrell is a 44 year old unfortunate female that presents to the ED with complaints of worsening swelling in her bilateral hips, thigh and suprapubic/vaginal area for the past two weeks. She has an underlying diagnosis of cervical squamous cell carcinoma. She has completed radiation and has been received chemo (Keytruda) every 6 weeks and her last dose was last week. She follows with Dr. Bass at [facility] and also She follows with Palliative Care at [facility] and current pain management is: * Fentanyl patch 75 mcg Q72 hours. Last placed 05/14 * Dilaudid 4 mg PO Q6 PRN; reportedly takes approximately 1 tab per day. * Was taking MSContin and was switched to TD Fentanyl on 03/28/25 due to uncontrolled pain. Current Chemotherapy: In the ED, no leukocytosis, otherwise labs unremarkable. Imaging completed in ED: CTAP: * 10 x 4 x 3 cm hypodense mass encasing the abdominal aorta and proximal iliac vessels. Given history of cervical carcinoma this may represent a necrotic lymph node mass. * Effacement of the common iliac veins bilaterally. These may be thrombosed. 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 The infrarenal IVC appears occluded. The suprarenal IVC appears patent. Multiple venous collaterals are visualized likely secondary to the IVC occlusion. Hip CT: * left ureteral stent is in place. Irregular urinary bladder wall thickening. Soft tissue thickening noted within the distribution of the cervix. Heterogeneity of the uterus. Trace free pelvic fluid. Left inguinal chain lymph nodes measure up to 10 mm. There is extensive diffuse subcutaneous edema throughout. No discrete fluid collection or soft tissue mass. In reference to previous scans in February 2025, a CT AP indicated periaortic fluid collection, more conspicuous, measuring up to 4.3 cm, approximating blood attenuation with possible peripheral wall enhancement. Retroperitoneal hemorrhage and/or aortic injury with leaking aorta is on the differential diagnosis. Further imaging was done on 03/28/25 when she was admitted which showed improvement so the scans from today do indicate a large change. She was recently admitted to [facility] from 04/01-04/06 for obstructive nephropathy with stent placement and complicated UTI. She grew Corynebacterium amycolatum in her urine and was started on IV Vanco while inpt and transitioned to PO Zyvox 600 mg BID for a 10 day course completion. She reportedly has frequent UTI's. Regarding her cancer history: Her original symptoms were lower abdominal pain and irregular bleeding for a few months. She had a PAP 05/2024 revealing epithelial cell abnormality, HPV (+), and High-Grade squamous intraepithelial lesion. Her biopsies were positive for invasive squamous cell carcinoma differentiated FIGO Stage IIIC. She completed cisplatin concurrent with the radiation therapy and Keytruda. Denies TA, dizziness, SOB, chest pain, abdominal pain or tenderness, denies recent falls or trauma. Denies urinary or bowel changes. On examination, patient is severely cachectic, nava, AAOx3, able to stand on her own, bilateral hip swelling, reports increased appetite lately with 6# weight gain. In asking her where she is regarding her cancer journey emotionally, she said she felt like things were better and 'doesnt understand'. She said a few times that she is in 'shock' and wants her to be with her. Currently, her mother is with her at bedside for the conversations. It seems that she is understandably in a denial/bargaining phase of her journey from my perspective. She is young and felt like progress was being made. We discussed the extent of what encapsulating tumors can look like, specifically in the aorta. I advised main focus is symptom management for now, will reach out to oncology for advancing imaging results and consult palliative medicine. Pt father is a reverend and they will request Violeta if they wish. Patient will be admitted for further evaluation and symptom management of her progressing cancer. Will focus on symptom/pain management. She felt that the Fentanyl and Dilaudid were helpful. Please see A/P for further details. Admission Exam Per Admitting Provider See H&P Discharge Exam Constitutional: Alert, cachectic HEENT: Mucous membranes moist. Lungs: Clear to auscultation, decreased, no wheezes rales or rhonchi CV: S1-S2, regular Abdomen: Soft, nontender, nondistended Extremities: Decreased edema in thighs Neuro: No focal deficits Psych: Cooperative, normal mood Updated Medication List Medication Instructions Recorded Confirmed Type hydromorphone 4 mg tablet 4 mg PO .Q6-8H PRN Pain 10/02/24 05/15/25 History estradiol 0.01% (0.1 mg/gram) 1 applic vaginal [id number] 02/24/25 05/15/25 History vaginal cream progesterone micronized 100 mg 100 mg PO QAM 02/24/25 05/15/25 History capsule lactobacillus combination no.4 3 3,000 mmu cells PO DAILY 03/06/25 05/15/25 History billion cell capsule (Probiotic) magnesium citrate 100 mg capsule 100 mg PO DAILY 03/06/25 05/15/25 History sennosides 8.6 mg tablet (senna) 17.2 mg PO HS 03/06/25 05/15/25 History phenazopyridine 100 mg tablet 100 mg PO TID PRN dysuria #10 tabs 03/09/25 05/15/25 Rx (Pyridium) fentanyl 75 mcg/hr transdermal 75 mcg transdermal Q72H 04/01/25 05/15/25 History patch oxybutynin chloride 5 mg tablet 5 mg PO DAILY 04/01/25 05/15/25 History tamsulosin 0.4 mg capsule 0.4 mg PO QAM 04/01/25 05/15/25 History desvenlafaxine succinate 25 mg 25 mg PO QAM 05/15/25 05/15/25 History tablet,extended release 24 hr melatonin 3 mg disintegrating 3 mg PO HS 05/15/25 05/15/25 History tablet meloxicam 15 mg tablet 15 mg PO QAM 05/15/25 05/15/25 History sulfamethoxazole 400 1 tab PO QAM 05/15/25 05/15/25 History mg-trimethoprim 80 mg tablet acetaminophen 500 mg tablet 1,000 mg (2 x 500 mg) PO TID #360 05/19/25 Rx (Tylenol Extra Strength) tabs apixaban 5 mg tablet (Eliquis) See Rx Instructions .Route 05/19/25 Rx .COMPLEX #72 tabs docusate sodium 100 mg capsule 100 mg PO BID #60 caps 05/19/25 Rx hydromorphone 4 mg tablet 10 mg (2.5 x 4 mg) PO Q4H PRN 05/19/25 Rx (Dilaudid) breakthrough pain, severe #30 tabs lactulose 10 gram/15 mL oral 30 ml PO Q8H PRN if no bowel 05/19/25 Rx solution (Constulose) movement in 2 days #946 mL morphine 60 mg tablet,extended 120 mg (2 x 60 mg) PO Q8H #180 tabs 05/19/25 Rx release (MS Contin) polyethylene glycol 3350 17 gram 17 g PO BID 30 days #100 ea 05/19/25 Rx oral powder packet (Miralax) Hospital Stay Data Consultations 05/15/25 14:55 ED Decision to Admit Stat 05/15/25 16:10 Consult Palliative Care Routine 05/16/25 10:17 Consult Oncology Routine 05/17/25 11:21 Consult Radiation Oncology Routine Diagnostic Imagining Performed 05/15/25 11:36 US leg [US venous doppler LE LT] Stat 05/15/25 12:55 CT Abd and Pelvis [CT abd pelvis IV con only] Stat CT hip LT w con Stat CT leg [CT femur LT w con] Stat Reviewed imaging, laboratory and diagnostic studies. Pertinent findings as below. WBC 7.5 Hemoglobin 8.7, essentially baseline Platelets 247 Sodium 130 Potassium 4.2 Chlor[address] of the abdomen pelvis showed 10 x 4 x 3 cm mass encasing the abdominal aorta and proximal iliac veins and vessels possibly some central necrosis. He also showed thrombosis of the iliac veins bilaterally and inferior vena cava left nephroureteral stent in place with resolution of the hydronephrosis. Diffuse bladder wall thickening. Pending Results Patient Have Any Pending Studies at Discharge: No Discharge Instructions Given to Patient (Per Discharging Provider) You can titrate your stool medications to ensure that you are having a bowel movement at least every other day. Call the home health care/palliative care/hospice care services first with any questions or concerns Home Health Attestation I certify that this patient is under my care and that I, or a physicians economic research assistant working with me, had a face to-face encounter that meets the home health [id number] encounter requirements with this patient. The encounter with the patient was in whole, or in part, for the following medical condition, which is the primary reason for home health care (list medical condition): I certify that, based on my findings, the following services are medically necessary home health services: My clinical findings support the need for the above services because: Further, I certify that my clinical findings support that this patient is homeb ound (i.e. absences from home require considerable and taxing effort and are for medical reasons or sikhism services or infrequently or of short duration when for other reasons) because: Certification for Home Health Services: Based on the above findings, I certify that this patient is confined to the home and needs intermittent jail care, physical therapy and/or speech therapy or continues to need occupational therapy. The patient is under my care, and I have initiated the establishment of the plan of care. This patient will be followed by a physician who will periodically review the plan of care. Total Time Total Time Spent Total Time Spent (In Minutes): 46
== END 2025-05-19 12:16 | disposition home health service (06) | DRG 754 ==
LOC: ED 11:03 → EDINP 15:05 → 3E 18:36